=== PATIENT | female | born 1945 | race Caucasian/White ===

== ENCOUNTER 2016-04-26 09:00 | Inpatient (IN) | payer MEDICARE, OTHER ==
[~2016-04-26] VITALS: Ht 160 cm; Wt 69.4 kg
[~2016-04-26 09:00] MED LIST: CIPR500T3 PO; DEPA500T2; HYDR1TAB97 PO; No Historical Meds; OXYC1TAB23 PO
[2016-05-05] MEDS ORDERED: PROZ40CA PO (09:42)
[2016-05-05] MEDS ORDERED: LIPI20TA PO (09:42)
[2016-05-05] MEDS ORDERED: AMLO10TA PO (09:42)
[2016-05-15] MEDS ORDERED: HYDR1TAB97 PO (13:37)
[2016-05-17] MEDS ORDERED: LR 1,000 ML IV SCH ×2 (06:30→11:15)
[2016-05-17] MEDS ORDERED: ONDANSETRON 4MG/2ML VIAL (J2405) As Ordered ONE (07:04)
[2016-05-17] MEDS ORDERED: ROCURONIUM BROMIDE 50 MG/5 ML VIAL As Ordered ONE ×2 (07:04→08:36)
[2016-05-17] MEDS ORDERED: MIDAZOLAM INJ 2 MG/2 ML VIAL (J2250) As Ordered ONE (07:04)
[2016-05-17] MEDS ORDERED: PROPOFOL 200 MG/20 ML VIAL As Ordered ONE (07:04)
[2016-05-17] MEDS ORDERED: fentaNYL 250 MCG/5 ML INJECTION (J3010) As Ordered ONE (07:04)
[2016-05-17] MEDS ORDERED: LIDOCAINE 2% INJ 100 MG/5 ML SDV (FOR ANES.) As Ordered ONE (07:04)
[2016-05-17] MEDS ORDERED: dexameTHASONE 4 MG/ML 1ML VIAL (J1100) As Ordered ONE (07:04)
[2016-05-17] MEDS ORDERED: CONRAY-60 60% 50ML VIAL (Q9961) As Ordered ONE (07:23)
[2016-05-17] MEDS ORDERED: PHENYLephrine HCL 500 MCG/5 ML (100MCG/ML) SYRINGE (J2370) As Ordered ONE ×2 (08:21→09:17)
[2016-05-17] MEDS ORDERED: ePHEDrine SULFATE 25 MG/5 ML(5MG/ML) SYRINGE As Ordered ONE (08:21)
[2016-05-17] MEDS ORDERED: NEOSTIGMINE 1MG/ML 5 ML SYRINGE (J2710) As Ordered ONE (09:09)
[2016-05-17] MEDS ORDERED: GLYCOPYRROLATE INJ 0.2 MG/ML 2 ML VIAL As Ordered ONE (09:09)
[2016-05-17] MEDS ORDERED: CONRAY-60 60% 50ML VIAL (Q9961) XX ONE (09:20)
[2016-05-17] MEDS ORDERED: CALCIUM CHLORIDE 10% 1 GM/10 ML SYR As Ordered ONE (09:40)
--- NOTE | 2016-05-17 10:39 | REP ---
Right retrograde pyelogram 05/17/2016 Indication: kidney stone Comparison: CT abdomen pelvis 02/28 16, retrograde pyelogram 03/14/2016 Findings: 2-minute 53 seconds c-arm fluoroscopy time provided to Dr. Lopez of Department of Urology who performed a percutaneous right nephrostomy with placement of a indwelling right ureteral stent. There are filling defects seen within the dilated right renal pelvis consistent with known staghorn calculus. Multiple gallstones are identified within the gallbladder 22 images were recorded and are available for review on PACS Signed by Shayy Prajapati MD 05/17/2016 10:30 A
[2016-05-17 10:56] LABS: MEAN CORPUSCULAR HEMOGLOBIN 29.7 pg (27.0-33.0); MEAN CORPUSCULAR HGB CONC 32.8 g/dl (32.0-36.5); MEAN CORPUSCULAR VOLUME 90.7 fl (80.0-96.0); RED CELL DISTRIBUTION WIDTH 12.8 % (11.5-14.5); WHITE BLOOD COUNT 14.3 K/mm3 (4.0-10.0)
[2016-05-17] MEDS ORDERED: PERCOCET 5MG/325MG TAB PO PRN (11:15)
[2016-05-17] MEDS ORDERED: ONDANSETRON 4MG/2ML VIAL (J2405) IV PRN ×2 (11:15→15:45)
[2016-05-17] MEDS ORDERED: fentaNYL 100 MCG/2 ML INJECTION (J3010) IV PRN (11:15)
[2016-05-17 11:29] LABS: CALCIUM LEVEL 8.9 MG/DL (8.8-10.2); CREATININE FOR GFR 1.51 MG/DL (0.55-1.02); GLOMERULAR FILTRATION RATE 36.5 (>45)
[2016-05-17 15:30] VITALS: BP 137/66
[2016-05-17] MEDS ORDERED: ACETAMINOPHEN 650MG ER TAB (TYLENOL ARTHRITIS) PO PRN (15:45)
[2016-05-17] MEDS ORDERED: MORPHINE 4 MG/ML 1ML SYRINGE IV PRN (15:45)
[2016-05-17] MEDS: KCL 20MEQ in NS 1000ML 1,000 ML IV SCH (15:45)
[2016-05-17 16:00] VITALS: BP 131/66
[2016-05-17] MEDS ORDERED: oxyCODONE 5MG TAB PO PRN (16:30)
[2016-05-17 17:00] VITALS: BP 128/59
[2016-05-17] MEDS ORDERED: LevoFLOXacin 500 MG in APPROPRIATE DILUENT 1 EA IV SCH (17:00)
[2016-05-17] MEDS ORDERED: PANTOPRAZOLE 40MG INJ (PROTONIX) (C9113) IV SCH (18:00)
[2016-05-17 21:00] VITALS: BP 128/59
[2016-05-18] VITALS: BP 113/54
[2016-05-18] MEDS: KCL 20MEQ in NS 1000ML 1,000 ML IV SCH ×3 (01:45→12:30)
[2016-05-18 05:12] VITALS: BP 122/68
[2016-05-18 07:22] LABS: MEAN CORPUSCULAR HEMOGLOBIN 29.7 pg (27.0-33.0); MEAN CORPUSCULAR HGB CONC 33.3 g/dl (32.0-36.5); RED CELL DISTRIBUTION WIDTH 12.9 % (11.5-14.5)
[2016-05-18 07:30] LABS: CREATININE FOR GFR 1.11 MG/DL (0.55-1.02); POTASSIUM SERUM 4.8 MEQ/L (3.5-5.1)
[2016-05-18 08:00] VITALS: BP 100/51
--- NOTE | 2016-05-18 08:46 | RO ---
DATE OF PROCEDURE: 05/17/2016 PREOPERATIVE DIAGNOSIS: Right staghorn stone. POSTOPERATIVE DIAGNOSIS: Right staghorn stone. FINDINGS: Right staghorn stone. PROCEDURE: Right percutaneous neprolithotripsy plus placement of JJ stent #6 [place] Cook. SURGEON: Dr. Romulo Lopez INSURANCE COMMISSIONER: None. ANESTHESIA: General. COMPLICATIONS: None. ESTIMATED BLOOD LOSS: N/A. HISTORY OF PRESENT ILLNESS: This is a 70-year-old female patient with a right staghorn stone. She has a nephrostomy tube in place. For this reason, she has consented for a right percutaneous nephrolithotripsy plus antegrade JJ stent placement. PROCEDURE DESCRIPTION: With patient under general anesthesia in prone position, after prepping and draping the area of concern which included the entire right flank, we started by cutting the nephrostomy tube and passing a Sensor guidewire down to the bladder and taking out the nephrostomy tube. We then incised the skin for about 2 cm in length and placed a double lumen catheter down into the kidney. We passed through the double lumen catheter a second Sensor guidewire down to the bladder. We then removed the double lumen catheter and placed a balloon dilator and dilated the tract with and passed the Amplatz sheath into the kidney. We then removed the balloon dilator and introduced a nephroscope under videoscopic guidance. We then proceeded the identify the stone and with a Fiberwand, we actually lithotripsied the stone and sucked all the pieces out. With a Perk NCircle, we grabbed the big pieces and took it out of body of patient. We then proceeded to actually took out the nephroscope and pass a flexible cystoscope in and did a formal nephroscopy upper pole, lower pole and mid pole of the kidney with a flexible cystoscope. We found some stones in the lower pole. We grabbed them with a basket 0.10 tip basket and took out of the body of the patient. We then proceeded to actually pass a JJ stent following the Sensor guidewire down to the kidney. Once it was in good position, we took the guidewire out. We then proceeded to pass a [place] tip into the kidney into the renal pelvis, 16-Burkinan [place] tip and we took out nephrostomy tube and suture ligated the [place] tip catheter to the skin with #2-0 silk stitch. We then proceeded the place 4 x 4 and tailor them on top of it to secure it and placed it to gravity. PLAN: The patient will pass to recovery then to the floor. Once she is tolerating regular diet, ambulating very well, we will take out all the tubes once she has a CT scan tomorrow morning and see there is no stones.
--- NOTE | 2016-05-18 08:47 | REP ---
Clinical: Postoperative flank pain. Comparison: 02/28/2016. Findings: The previously noted 8 mm obstructing left ureteral calculus has been removed and the left kidney/ureter appears relatively normal with small punctate nonobstructing intrarenal calculi suspected. The right kidney now demonstrates a ureteral stent extending from the renal pelvis to the bladder with intra renal calculi measuring up to approximately 8 mm and small right ureteral calculi suggested measuring up to 2 mm adjacent to the stent at various levels. The previously identified staghorn calculus within the right kidney is essentially removed. There is evidence for mild right perinephric stranding with a drainage-type catheter identified in the posterior right perinephric space external to the kidney. Liver, spleen, pancreas, and bilateral adrenal glands are normal. Cholelithiasis again noted without acute cholecystitis. Ostomy identified in the right anterior abdominal wall with peristomal hernia containing nonobstructed loops of small bowel. Pelvis demonstrates a Renee catheter and small amount of gas in collapsed bladder along with the above mentioned right ureteral stent. Soft tissue and/or fluid is identified in the deep posterior pelvic cul-de-sac similar to prior examination. No free air. No significant adenopathy. Musculoskeletal structures demonstrate degenerative changes. Lung bases are stable. Impression: 1. A drainage type catheter is identified adjacent to the right kidney external to the kidney itself and requires correlation. If this represents a nephrostomy tube, repositioning or removal may be warranted. 2. Further renal and ureteral changes as described above without evidence for acute hydronephrosis. 3. Cholelithiasis. 4. Remainder of the abdomen and pelvis demonstrates stable findings. Signed by Jimbo Arita MD 05/18/2016 08:38 A
[2016-05-18 12:00] VITALS: BP 106/51
[2016-05-18] MEDS ORDERED: HYDR1TAB97 PO (15:47)
[2016-05-18] MEDS ORDERED: LEVA500T PO (15:47)
--- NOTE | 2016-05-18 20:27 | DSES ---
DATE OF ADMISSION: 05/17/2016 DATE OF DISCHARGE: 05/18/2016 PREOPERATIVE DIAGNOSIS: Right staghorn stone. POSTOPERATIVE DIAGNOSIS: Right staghorn stone. ADMISSION DIAGNOSIS: Right staghorn stone. DISCHARGE DIAGNOSIS: Right staghorn stone. SURGERY PERFORMED: Right percutaneous nephrolithotripsy plus antegrade double-J stent 6-Swedish [place] Cook. COMPLICATIONS: None. HISTORY OF PRESENT ILLNESS: A 70-year-old female patient who has a right staghorn stone. For this reason, she had a nephrostomy tube placed, and she consented for a right percutaneous nephrolithotripsy which was carried out on 05/17/2016, without complications. After this, she was admitted. HOSPITALIZATION COURSE: The patient did very well. By postoperative day one, she had a CT scan that showed that there was 98% of the stone gone. There was only a miniscule 3 mm stone in the mid-pole of the kidney, and she had a correct double-J stent on the right side draining the kidney very well. Nephrostomy tube was in good position. For this reason, we opted to discontinue the nephrostomy tube and Renee catheter from the bladder. We left inside the right double-J stent. The patient will have a urostomy bag attached to the back side where the nephrostomy tube entrance was. She will have to drain it every 24 hours. Once it is thoroughly dry, she will discontinue it. She will followup at [facility] in one week to two weeks, so I can remove the internal double-J stent on the right side. She will take come Levaquin 500 mg one tablet by mouth daily, and Percocet 5/325 mg one tablet by mouth every six hours. The patient has agreed on being sent home. She would like to actively go home. She is ambulating very well, tolerating oral diet. Pain is controlled with oral medication and would like to actively be discharged. For this reason, we have discontinued nephrostomy tube, the Renee catheter from the bladder. She will be going home with antibiotic and pain medication as mentioned above. She will followup at [facility] in one week.
== END 2016-05-18 16:15 | disposition home or self-care (01) | DRG 661 ==
LOC: M OR 05-17 06:16 → M MS5PR 05-17 15:20 → M PED 05-17 23:50
PROVIDERS: ADMIT Urology; ATTEND Urology
PROC: 0T733DZ Dilation of Right Kidney Pelvis with Intraluminal Device, Percutaneous Approach (ICD-10-PCS; 2016-05-15)
PROC: 0T734DZ Dilation of Right Kidney Pelvis with Intraluminal Device, Percutaneous Endoscopic Approach (ICD-10-PCS; 2016-05-17)
PROC: 0TC34ZZ Extirpation of Matter from Right Kidney Pelvis, Percutaneous Endoscopic Approach (ICD-10-PCS; principal; 2016-05-17 07:30)
DX: N20.0 Calculus of kidney (principal); K21.9 Gastro-esophageal reflux disease without esophagitis; R42 Dizziness and giddiness; Z93.3 Colostomy status; I10 Essential (primary) hypertension; F41.9 Anxiety disorder, unspecified; J30.9 Allergic rhinitis, unspecified; Z79.899 Other long term (current) drug therapy

== ENCOUNTER → 2016-05-15 | Outpatient (CLI) | payer MEDICARE, OTHER ==
[~2016-05-15] MED LIST changes: +AMLO10TA PO; +ISOVUE-300 61% 50ML VIAL (Q9967) As Ordered ONE; +LEVA500T PO; +LIDOCAINE 2% MDV 20 ML VIAL As Ordered ONE; +LIPI20TA PO; +LR 1,000 ML IV SCH; +MIDAZOLAM INJ 2 MG/2 ML VIAL (J2250) As Ordered ONE; +NORCO, ANEXSIA 5/325MG TABLET (HYDROcodone/ACETAMINOPHEN) PO PRN; +ONDANSETRON 4MG/2ML VIAL (J2405) IV PRN; +PERCOCET 5MG/325MG TAB PO PRN; +PROZ40CA PO; +SODIUM BICARBONATE 8.4% INJ 50MEQ 50 ML VIAL As Ordered ONE; +cefTRIAXone SOD 1 GM VIAL (J0696) As Ordered ONE; +cefTRIAXone SOD 1 GM in D5W MINI-BAG PLUS 50 ML IV ONE; +fentaNYL 100 MCG/2 ML INJECTION (J3010) As Ordered ONE; +fentaNYL 100 MCG/2 ML INJECTION (J3010) IV PRN
[2016-05-15 14:40] VITALS: BP 177/81
--- NOTE | 2016-05-15 17:04 | REPKIM ---
CLINICAL HISTORY: Patient with a history of multiple bilateral kidney stones and flank pain. Successful left kidney stone PCNL performed in January 2016. The referring urology service has requested a nephroureteral catheter (stent) placement for preop percutaneous nephrolithotripsy urology procedure on the right. PROCEDURE PERFORMED: 1. Ultrasound Right Kidney 2. Percutaneous antegrade Nephrostogram on the right 3. Percutaneous Nephroureteral catheter (stent) placement on the right INTERVENTIONALIST: Adelfo Self MD CONSENT: The risks, benefits and alternatives to the procedure were explained to the patient and informed written consent was obtained. SEDATION: Sedation and analgesia was provided by the Anesthesiology Dept. MEDICATIONS: Rocephin 1gm IV, Local Lidocaine CONTRAST: 18 mL Isovue 300 EBL: less than 10 mL FLUORO TIME: 7.7 minutes DEVICE USED: 8.5F 45cm pigtail; Nephroureteral catheter Lot #[id number] PROCEDURE/FINDINGS: The patient was brought to the interventional radiology suite and placed in the prone position with the right side up, prepped and draped in the usual sterile fashion. Time out procedure was performed. Ultrasound of the kidney showed a staghorn kidney stone involving the upper pole calyces. This showed no evidence of hydronephrosis. Using ultrasound and fluoroscopy guidance, a 21-gauge Trocar needle was advanced into the targeted posterior calyceal stone in the upper pole of the right kidney, after infiltration of the skin and deep tissues with local anesthetic. Contrast was injected and images were obtained. This showed antegrade flow of contrast into the urinary bladder. Using a hydrophilic guidewire, the catheter-wire combination was advanced around the calyceal stone into the proximal ureter then into the urinary bladder. The wire was then exchanged for a stiff wire. An 8.5-Scottish 45-cm length pigtail catheter ( nephroureteral catheter) was introduced over the guidewire after serial dilation of its tract. The guidewire was withdrawn and the distal end of the loop was formed, in the bladder. The nephroureteral catheter was then flushed and capped. The patient tolerated the procedure well with no immediate complications. This procedure was performed using ultrasound and fluoroscopy. Dr. Self was present. FINDINGS: 1. A staghorn kidney stone in the upper pole calyces involving the right kidney. No evidence of hydronephrosis. 2. Successful 8.5F nephroureteral catheter placement via the upper pole posterior calyceal stone. IMPRESSION: Successful nephroureteral catheter (stent) placement via the upper pole posterior calyceal stone with its tip positioned in the bladder as discussed above. This access will be used for subsequent percutaneous nephrolithotripsy urology procedure. cc: TIFFANY Lorenzo MD MTDD
== END | disposition home or self-care (01) ==
LOC: M IRPRO 09:39
PROVIDERS: ATTEND Urology
DX: N20.0 Calculus of kidney (principal)

== ENCOUNTER → 2016-06-12 | Outpatient (CLI) | payer MEDICARE ==
[~2016-06-12] MED LIST changes: +HYDR-3713 PO; -HYDR1TAB97 PO; -ISOVUE-300 61% 50ML VIAL (Q9967) As Ordered ONE; -LIDOCAINE 2% MDV 20 ML VIAL As Ordered ONE; -LR 1,000 ML IV SCH; -MIDAZOLAM INJ 2 MG/2 ML VIAL (J2250) As Ordered ONE; -NORCO, ANEXSIA 5/325MG TABLET (HYDROcodone/ACETAMINOPHEN) PO PRN; -ONDANSETRON 4MG/2ML VIAL (J2405) IV PRN; -PERCOCET 5MG/325MG TAB PO PRN; -SODIUM BICARBONATE 8.4% INJ 50MEQ 50 ML VIAL As Ordered ONE; -cefTRIAXone SOD 1 GM VIAL (J0696) As Ordered ONE; -cefTRIAXone SOD 1 GM in D5W MINI-BAG PLUS 50 ML IV ONE; -fentaNYL 100 MCG/2 ML INJECTION (J3010) As Ordered ONE; -fentaNYL 100 MCG/2 ML INJECTION (J3010) IV PRN
--- NOTE | 2016-06-12 10:35 | REP ---
CT study of the abdomen and pelvis without IV or oral contrast: History: Staghorn calculus. Comparison CT study is from May 18, 2016. Findings: Preliminary digital metal stamper radiograph demonstrates a normal bowel gas pattern along with opaque gallstones in the right upper quadrant. The previously placed drainage and ureteral stent catheters have been removed. There is a surgical clip in the left mid abdomen. The lung bases are clear on axial CT images. The liver and spleen are normal in size, homogeneous in texture. A small accessory splenule is seen. Calcified gallstones are seen in the small contracted gallbladder. There is a right lower quadrant enterostomy with a parastomal hernia. The patient appears to be status post colectomy. There are two tiny, 2 mm intrarenal calculi in the right kidney without evidence of hydronephrosis. There are two tiny 1 mm calculi in the left kidney collecting system as well. No left-sided hydronephrosis is seen. No pancreatic abnormality is observed. Urinary bladder is unremarkable. No other abdominal wall defect is seen. There are degenerative changes in the lumbar spine. No bony destructive lesion is seen. Impression: Prior colectomy. Right lower quadrant ileostomy with a parastomal hernia again noted. Bilateral intrarenal calculi 1-2 mm, two on each side. No hydronephrosis. Cholelithiasis. Signed by Glenn Hyatt MD 06/12/2016 02:32 P
== END | disposition home or self-care (01) ==
LOC: M RAD 08:34
PROVIDERS: ATTEND Urology
DX: N20.0 Calculus of kidney (principal); Z90.49 Acquired absence of other specified parts of digestive tract; Z93.2 Ileostomy status; K43.5 Parastomal hernia without obstruction or gangrene

== ENCOUNTER → 2016-06-13 | Outpatient (CLI) | payer MEDICARE | END | disposition home or self-care (01) | LOC: M LAB 14:37 | PROVIDERS: ATTEND Urology | DX: N20.0 Calculus of kidney (principal) ==

== ENCOUNTER → 2016-07-04 | Outpatient (CLI) | payer MEDICARE | LOC: M LRY 14:06 | PROVIDERS: ATTEND Family Medicine | DX: M25.511 Pain in right shoulder (principal); G89.29 Other chronic pain; Z53.8 Procedure and treatment not carried out for other reasons ==

== ENCOUNTER → 2016-07-05 | Outpatient (CLI) | payer MEDICARE ==
--- NOTE | 2016-07-05 15:21 | REP ---
RIGHT SHOULDER, THREE VIEWS: HISTORY: Pain. COMPARISON: 11/12/2012 There is no acute fracture or dislocation. There is narrowing of the acromioclavicular joint. Osteophytes are present on the inferior glenoid superior and inferior aspects of the acromioclavicular joint and the inferolateral aspect of the acromion. IMPRESSION: Degenerative change as described above. Signed by Max Nino MD 07/05/2016 03:25 P
== END ==
LOC: M LRY 13:57
PROVIDERS: ATTEND Family Medicine
DX: M25.511 Pain in right shoulder (principal); G89.29 Other chronic pain; M19.011 Primary osteoarthritis, right shoulder

== ENCOUNTER → 2016-07-20 | Outpatient (REF) | payer MEDICARE | LOC: M LAB REF 12:38 | PROVIDERS: ATTEND Physician Assistant | DX: R50.9 Fever, unspecified (principal) ==

== ENCOUNTER → 2016-07-24 | Outpatient (REF) | payer MEDICARE | LOC: M SFHCLERA 15:20 | PROVIDERS: ATTEND Family Medicine | DX: J00 Acute nasopharyngitis [common cold] (principal) ==

== ENCOUNTER → 2016-11-30 | Outpatient (REF) | payer MEDICARE ==
[~2016-11-30] MED LIST changes: +LEVA1TAB2 PO; -LEVA500T PO
[2016-11-30 16:52] LABS: ANION GAP 6 MEQ/L (8-16); BLOOD UREA NITROGEN 15 MG/DL (7-18); CALCIUM LEVEL 9.4 MG/DL (8.8-10.2); CARBON DIOXIDE LEVEL 30 MEQ/L (21-32); CHLORIDE LEVEL 99 MEQ/L (98-107); GLOMERULAR FILTRATION RATE > 60.0 (>45); GLUCOSE, FASTING 133 MG/DL (80-110); POTASSIUM SERUM 4.1 MEQ/L (3.5-5.1); SODIUM LEVEL 135 MEQ/L (136-145)
== END ==
LOC: M SFHCLERA 11:58
PROVIDERS: ATTEND Family Medicine
DX: I10 Essential (primary) hypertension (principal)

== ENCOUNTER → 2016-11-30 | Outpatient (CLI) | payer MEDICARE ==
--- NOTE | 2016-11-30 12:38 | REP ---
REASON: Knee pain. Only a standing bilateral AP view was obtained. There are no prior standing bilateral AP examinations for comparison. There is mild bilateral bicompartmental marginal osteophytosis. There is no jenna compartmental narrowing or subchondral sclerosis. There is no fracture or osseous lesion. IMPRESSION: Chronic changes as described above. Signed by Eleuterio Connell DO 11/30/2016 04:44 P
== END ==
LOC: M LRY 12:07
PROVIDERS: ATTEND Family Medicine
DX: Z12.31 Encounter for screening mammogram for malignant neoplasm of breast (principal); M25.561 Pain in right knee; M25.562 Pain in left knee; G89.29 Other chronic pain; I10 Essential (primary) hypertension
CPT/HCPCS: 73565; 80048; G0463

== ENCOUNTER → 2017-06-07 | Outpatient (REF) | payer MEDICARE ==
[2017-06-07 12:12] LABS: HEMATOCRIT 43.2 % (36.0-47.0); HEMOGLOBIN 13.8 g/dl (12.0-16.0); MEAN CORPUSCULAR HEMOGLOBIN 28.5 pg (27.0-33.0); MEAN CORPUSCULAR HGB CONC 31.9 g/dl (32.0-36.5); MEAN CORPUSCULAR VOLUME 89.1 fl (80.0-96.0); PLATELET COUNT, AUTOMATED 320 10^3/uL (150-450); RED BLOOD COUNT 4.85 10^6/uL (4.00-5.40); RED CELL DISTRIBUTION WIDTH 13.7 % (11.5-14.5); WHITE BLOOD COUNT 8.1 10^3/uL (4.0-10.0)
[2017-06-07 12:49] LABS: ALBUMIN 3.7 GM/DL (3.2-5.2); ALKALINE PHOSPHATASE 89 U/L (45-117); ALT/SGPT 15 U/L (12-78); ANION GAP 6 MEQ/L (8-16); AST/SGOT 9 U/L (7-37); BILIRUBIN,TOTAL 0.4 MG/DL (0.2-1.0); BLOOD UREA NITROGEN 19 MG/DL (7-18); CALCIUM LEVEL 9.2 MG/DL (8.8-10.2); CARBON DIOXIDE LEVEL 29 MEQ/L (21-32); CHLORIDE LEVEL 106 MEQ/L (98-107); CHOLESTEROL LEVEL 279 MG/DL (<200); CREATININE FOR GFR 1.04 MG/DL (0.55-1.30); GLOMERULAR FILTRATION RATE 55.9 (>45); GLUCOSE, FASTING 87 MG/DL (70-100); HDL CHOLESTEROL 51 MG/DL (>40); LDL CHOLESTEROL 178.4 MG/DL (<100); NON-HDL-C 228 MG/DL; POTASSIUM SERUM 4.7 MEQ/L (3.5-5.1); SODIUM LEVEL 141 MEQ/L (136-145); TOTAL PROTEIN 7.8 GM/DL (6.4-8.2); TRIGLYCERIDES LEVEL 248 MG/DL (<150)
== END ==
LOC: M SFHCLERA 09:17
DX: E78.2 Mixed hyperlipidemia (principal); I10 Essential (primary) hypertension
CPT/HCPCS: 80053

== ENCOUNTER → 2017-12-17 | Outpatient (CLI) | payer MEDICARE | LOC: M LAB 13:51 | DX: M89.8X1 Other specified disorders of bone, shoulder (principal); M19.011 Primary osteoarthritis, right shoulder | CPT/HCPCS: 73000 ==

== ENCOUNTER → 2018-01-21 | Outpatient (CLI) | payer MEDICARE | LOC: M RAD 13:30 | DX: N64.4 Mastodynia (principal) ==

== ENCOUNTER → 2018-01-23 | Outpatient (CLI) | payer MEDICARE | LOC: M WHC 14:57 | DX: Z13.820 Encounter for screening for osteoporosis (principal); Z78.0 Asymptomatic menopausal state | CPT/HCPCS: 77080 ==

== ENCOUNTER → 2018-02-07 | Outpatient (CLI) | payer MEDICARE | LOC: M RAD 12:35 | DX: N64.4 Mastodynia (principal) | CPT/HCPCS: 77065 ==

== ENCOUNTER → 2018-02-13 | Outpatient (REF) | payer MEDICARE ==
[2018-02-13 13:12] LABS: RUBELLA IgG QUALITATIVE IMMUNE (IMMUNE)
[2018-02-14 11:17] LABS: RUBEOLA IgG ANTIBODY >300.0 AU/mL (Immune >29.9)
[2018-02-14 11:17] LABS: MUMPS VIRUS IgG ANTIBODY 15.4 AU/mL (Immune >10.9)
== END ==
LOC: M SFHCPLAZ 10:49
DX: Z01.84 Encounter for antibody response examination (principal)
CPT/HCPCS: 86762

== ENCOUNTER 2018-03-21 14:08 | Emergency (ER) | payer MEDICARE ==
[2018-03-21] MEDS: ACETAMINOPHEN TAB 650MG DOSE (2X325MG) PO (15:23)
[2018-03-21] MEDS: LIDOCAINE W/EPINEPHRINE 1% 20ML VIAL SC (15:24)
[2018-03-21] MEDS: BACITRACIN OINT 30GM TOP (16:13)
== END 2018-03-21 16:24 | disposition home or self-care (01) ==
LOC: M ED 14:08
DX: S01.111A Laceration without foreign body of right eyelid and periocular area, initial encounter (principal); W19.XXXA Unspecified fall, initial encounter; Y92.410 Unspecified street and highway as the place of occurrence of the external cause; Y93.89 Activity, other specified; Y99.9 Unspecified external cause status; I10 Essential (primary) hypertension; E78.5 Hyperlipidemia, unspecified; Z79.899 Other long term (current) drug therapy
CPT/HCPCS: 12052

== ENCOUNTER → 2018-05-19 | Outpatient (CLI) | payer MEDICARE, OTHER ==
[~2018-05-19] MED LIST changes: +ACET500T15 PO; +ALEV220T22 PO; +OMEP40CA2 PO
[2018-05-19 17:24] LABS: BASO # 0.1 10^3/uL (0.0-0.2); BASO % 1.2 % (0.0-1.0); EOS # 0.4 10^3/uL (0.0-0.50); EOS % 4.7 % (0.0-3.0); HEMATOCRIT 45.3 % (36.0-47.0); HEMOGLOBIN 14.6 g/dl (12.0-15.5); LYMPH # 3.9 10^3/uL (1.5-4.5); LYMPH % 41.6 % (24.0-44.0); MEAN CORPUSCULAR HEMOGLOBIN 28.5 pg (27.0-33.0); MEAN CORPUSCULAR HGB CONC 32.2 g/dl (32.0-36.5); MEAN CORPUSCULAR VOLUME 88.3 fl (80.0-96.0); MONO # 0.7 10^3/uL (0.0-0.8); MONO % 7.4 % (0.0-5.0); NEUTROPHILS # 4.3 10^3/uL (1.8-7.7); PLATELET COUNT, AUTOMATED 354 10^3/uL (150-450); RED BLOOD COUNT 5.13 10^6/uL (4.00-5.40); WHITE BLOOD COUNT 9.5 10^3/uL (4.0-10.0)
[2018-05-19 17:39] LABS: ALBUMIN 4.2 GM/DL (3.2-5.2); ALT/SGPT 14 U/L (12-78); BILIRUBIN,TOTAL 0.5 MG/DL (0.2-1.0); BLOOD UREA NITROGEN 20 MG/DL (7-18); CALCIUM LEVEL 9.3 MG/DL (8.8-10.2); CARBON DIOXIDE LEVEL 28 MEQ/L (21-32); CHLORIDE LEVEL 101 MEQ/L (98-107); CREATININE FOR GFR 0.91 MG/DL (0.55-1.30); FREE T4 1.04 NG/DL (0.76-1.46); GLOMERULAR FILTRATION RATE > 60.0 (>39); GLUCOSE, FASTING 77 MG/DL (70-100); POTASSIUM SERUM 4.9 MEQ/L (3.5-5.1); SODIUM LEVEL 138 MEQ/L (136-145); THYROID STIMULATING HORMONE 0.771 uIU/ML (0.358-3.740); TOTAL PROTEIN 8.1 GM/DL (6.4-8.2)
[2018-05-19 17:54] LABS: ERYTHROCYTE SEDIMENTATION RATE 3 mm/hr (0-30)
--- NOTE | 2018-05-20 06:10 | REP ---
Soft-tissue neck x-ray: Four views. History: Dysphasia. Comparison study November 12, 2012. Findings: The epiglottis is normal. Aryepiglottic folds and retropharyngeal soft tissues are normal. Glottic and subglottic airway are unremarkable. There are degenerative spondylosis changes in the cervical spine most pronounced at C4-5 and C5-6. Osteoarthritic facet hypertrophy is noted in the mid cervical spine bilaterally. There is some vascular calcification. Impression: Degenerative changes in the cervical spine. No soft tissue abnormality seen. Electronically Signed by Glenn Hyatt MD 05/20/2018 08:10 A
== END ==
LOC: M WUC 13:28
PROVIDERS: ATTEND Physician Assistant
DX: R13.13 Dysphagia, pharyngeal phase (principal); M47.812 Spondylosis without myelopathy or radiculopathy, cervical region

== ENCOUNTER → 2018-05-22 | Outpatient (CLI) | payer MEDICARE ==
[~2018-05-22] MED LIST changes: +E-Z-GAS II EFFERVESCENT PACKET (SODIUM BICARB./CITRIC ACID/SIMETHICONE) As Ordered ONE; +E-Z-HD 98% w/w 340GM SUSP BTL As Ordered ONE; +E-Z-PAQUE 96% w/w SUSP 176GM BTL As Ordered ONE
--- NOTE | 2018-05-22 19:38 | REP ---
Esophagram The procedure was performed under the direct supervision of Dr. Hyatt. The images were reviewed with Dr. Hyatt. A single view PA chest x-ray is submitted as a director of kids film. The superior mediastinal structures are midline. The heart size is within normal limits. The lungs are clear. There is no change compared to a previous chest x-ray performed on 11/09/2017. Liquid barium and gas producing granules were given in the erect position as well as liquid barium in the prone oblique positions in order to perform a double contrast esophagram examination. The oral and pharyngeal stages of deglutition are unremarkable. 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 There is cricopharyngeal hypertrophy. There are esophageal transport there are tertiary waves. There is no esophagitis stricture mucosal ring or hiatal hernia. Gastroesophageal reflux is not demonstrated on this examination. Impression: 1. 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 2. Cricopharyngeal hypertrophy 3. Tertiary waves 0.6 minutes of fluoro time was utilized for this procedure. Reviewed by SHANON Romero 05/22/2018 03:06 P Electronically Signed by Glenn Hyatt MD 05/22/2018 07:30 P
== END ==
LOC: M RAD 13:25
PROVIDERS: ATTEND Physician Assistant
DX: J39.2 Other diseases of pharynx (principal); Q39.4 Esophageal web

== ENCOUNTER 2018-08-16 12:20 | Day surgery (SDC) | payer MEDICARE ==
[~2018-08-16] VITALS: Ht 157.5 cm; Wt 68.9 kg
[~2018-08-16 12:20] MED LIST changes: -E-Z-GAS II EFFERVESCENT PACKET (SODIUM BICARB./CITRIC ACID/SIMETHICONE) As Ordered ONE; -E-Z-HD 98% w/w 340GM SUSP BTL As Ordered ONE; -E-Z-PAQUE 96% w/w SUSP 176GM BTL As Ordered ONE; +NAPR-885 PO; +NS 1,000 ML IV ONE
[2018-08-16] MEDS ORDERED: PROPOFOL 200 MG/20 ML VIAL As Ordered ONE ×2 (13:19→14:10)
[2018-08-16] MEDS ORDERED: LIDOCAINE 2% INJ 100 MG/5 ML SDV (FOR ANES.) As Ordered ONE (13:19)
--- NOTE | 2018-08-16 14:35 | ROOR ---
Patient Name: Lakisha Abrams Procedure Date: 08/16/2018 2:03 PM Date of : 1945 Age: 73 Room: [facility] Gender: Female Note Status: Finalized Procedure: Upper GI endoscopy Indications: Dysphagia, Abnormal cine-esophagram Providers: Reji Villarreal MD Referring MD: ISIAH BHAGAT Requesting Provider: Medicines: Monitored Anesthesia Care Complications: No immediate complications. Procedure: Pre-Anesthesia Assessment: - Prior to the procedure, a History and Physical was performed, and patient medications and allergies were reviewed. The patient is competent. The risks and benefits of the procedure and the sedation options and risks were discussed with the patient. All questions were answered and informed consent was obtained. Patient identification and proposed procedure were verified by the physician, the nurse and the anesthesiologist in the procedure room. Mental Status Examination: alert and oriented. Airway Examination: normal oropharyngeal airway and neck mobility. Respiratory Examination: clear to auscultation. CV Examination: normal. Prophylactic Antibiotics: The patient does not require prophylactic antibiotics. Prior Anticoagulants: The patient has taken no previous anticoagulant or antiplatelet agents. ASA Grade Assessment: II - A patient with mild systemic disease. After reviewing the risks and benefits, the patient was deemed in satisfactory condition to undergo the procedure. The anesthesia plan was to use monitored anesthesia care (MAC). Immediately prior to administration of medications, the patient was re-assessed for adequacy to receive sedatives. The heart rate, respiratory rate, oxygen saturations, blood pressure, adequacy of pulmonary ventilation, and response to care were monitored throughout the procedure. The physical status of the patient was re-assessed after the procedure. The Endoscope was introduced through the mouth, and advanced to the second part of duodenum. The upper GI endoscopy was accomplished without difficulty. The patient tolerated the procedure well. Findings: A moderate Schatzki ring was found in the distal esophagus. Biopsies were taken with a cold forceps for histology. Verification of patient identification for the specimen was done by the physician and nurse using the patient's name, date and medical record number. A TTS dilator was passed through the scope. Dilation with a 15-16.5-18 mm balloon dilator was performed to 18 mm. The dilation site was examined following endoscope reinsertion and showed mild mucosal disruption, moderate improvement in luminal narrowing, no bleeding and no perforation. Savary-Guzman Grade III (circumferential lesion, erosive or exudative) esophagitis with no bleeding was found in the distal esophagus. A large hiatal hernia was present. Diffuse severe inflammation characterized by erosions, erythema, friability, granularity, serpentine ulcerations and shallow ulcerations was found in the gastric body and in the gastric antrum. Biopsies were taken with a cold forceps for histology. Biopsies were taken with a cold forceps for Helicobacter pylori testing. An acquired benign-appearing, intrinsic severe stenosis was found in the first portion of the duodenum and was non-traversed. Biopsies were taken with a cold forceps for histology. Impression: - Moderate Schatzki ring. Biopsied. Dilated. - Savary-Guzman Grade III reflux esophagitis. - Large hiatal hernia. - Gastritis. Biopsied. - Acquired duodenal stenosis. Biopsied. Recommendation: - Patient has a contact number available for emergencies. The signs and symptoms of potential delayed complications were discussed with the patient. Return to normal activities tomorrow. Written discharge instructions were provided to the patient. - Resume previous diet. - Use Protonix (pantoprazole) 40 mg PO twice daily - to be taken in morning (1/2 hour before breakfast) and at bedtime ( atleast 3 hours after last meal) for 3 months. 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 for 3 months. - Use sucralfate tablets 1 gram PO QID for 1 month. - Return to GI clinic in [facility] (address [address], [address], [place], [facility]) in 4 -- 6 weeks. Please call GI clinic @ [phone] for apppointment date and time. - Return to primary care physician. Reji Villarreal MD Reji Villarreal MD 08/16/2018 2:35:28 PM Electronically signed by Reij Villarreal MD Number of Addenda: 0 Note Initiated On: 08/16/2018 2:03 PM Estimated Blood Loss: Estimated blood loss was minimal.
[2018-08-16 14:55] VITALS: BP 104/57
== END 2018-08-16 15:04 | disposition home or self-care (01) ==
LOC: M OPP 12:20
PROVIDERS: ATTEND Internal Medicine Gastroenterology
DX: K22.2 Esophageal obstruction (principal); K21.0 Gastro-esophageal reflux disease with esophagitis; K44.9 Diaphragmatic hernia without obstruction or gangrene; K29.70 Gastritis, unspecified, without bleeding; K31.5 Obstruction of duodenum; R13.10 Dysphagia, unspecified; R93.3 Abnormal findings on diagnostic imaging of other parts of digestive tract

== ENCOUNTER → 2018-10-17 | Outpatient (CLI) | payer MEDICARE ==
[~2018-10-17] MED LIST changes: -NS 1,000 ML IV ONE
[2018-10-17 09:07] LABS: BASO # 0.1 10^3/uL (0.0-0.2); BASO % 1.1 % (0.0-1.0); EOS # 0.6 10^3/uL (0.0-0.50); EOS % 7.1 % (0.0-3.0); HEMATOCRIT 42.3 % (36.0-47.0); HEMOGLOBIN 13.8 g/dl (12.0-15.5); LYMPH # 3.2 10^3/uL (1.5-4.5); LYMPH % 37.7 % (24.0-44.0); MEAN CORPUSCULAR HEMOGLOBIN 29.5 pg (27.0-33.0); MEAN CORPUSCULAR HGB CONC 32.6 g/dl (32.0-36.5); MEAN CORPUSCULAR VOLUME 90.4 fl (80.0-96.0); MONO # 0.6 10^3/uL (0.0-0.8); MONO % 6.5 % (0.0-5.0); NEUTROPHILS % 47.2 % (36.0-66.0); PLATELET COUNT, AUTOMATED 308 10^3/uL (150-450); RED BLOOD COUNT 4.68 10^6/uL (4.00-5.40); WHITE BLOOD COUNT 8.4 10^3/uL (4.0-10.0)
[2018-10-17 09:36] LABS: HEMOGLOBIN A1c 5.7 %
[2018-10-17 09:39] LABS: ALBUMIN 3.9 GM/DL (3.2-5.2); ALT/SGPT 19 U/L (12-78); BILIRUBIN,TOTAL 0.4 MG/DL (0.2-1.0); BLOOD UREA NITROGEN 16 MG/DL (7-18); CALCIUM LEVEL 9.1 MG/DL (8.8-10.2); CARBON DIOXIDE LEVEL 30 MEQ/L (21-32); CHLORIDE LEVEL 106 MEQ/L (98-107); CHOLESTEROL LEVEL 203 MG/DL (<200); CHOLESTEROL RISK RATIO 3.222 (<5); CREATININE FOR GFR 0.95 MG/DL (0.55-1.30); FREE T4 0.86 NG/DL (0.76-1.46); GLOMERULAR FILTRATION RATE > 60.0 (>39); GLUCOSE, FASTING 94 MG/DL (70-100); HDL CHOLESTEROL 63 MG/DL (>40); LDL CHOLESTEROL 105 MG/DL (<100); MAGNESIUM LEVEL 1.9 MG/DL (1.8-2.4); NON-HDL-C 140 MG/DL; POTASSIUM SERUM 4.2 MEQ/L (3.5-5.1); SODIUM LEVEL 143 MEQ/L (136-145); TOTAL PROTEIN 7.5 GM/DL (6.4-8.2); TRIGLYCERIDES LEVEL 176 MG/DL (<150)
[2018-10-17 10:10] LABS: TOTAL 25(OH) VITAMIN D 18.4 NG/ML (30.0-100.0)
--- NOTE | 2018-10-17 11:17 | REP ---
LEFT SHOULDER, THREE VIEWS: HISTORY: Arm pain. There is no acute fracture or dislocation. The glenohumeral joint space is normal in appearance. There is moderate narrowing of the acromioclavicular joint space. IMPRESSION: Degenerative change as described above. Electronically Signed by Max Nino MD 10/17/2018 11:26 A
== END ==
LOC: M LAB 08:38
PROVIDERS: ATTEND Nurse Practitioner Family
DX: I10 Essential (primary) hypertension (principal); E55.9 Vitamin D deficiency, unspecified; E78.5 Hyperlipidemia, unspecified

== ENCOUNTER → 2018-11-18 | Outpatient (CLI) | payer MEDICARE ==
[~2018-11-18] MED LIST changes: -OMEP40CA2 PO; +OMEP40CA97 PO; +PANT40TA3 PO; +RANI150T14 PO; +SUCR1TAB56 PO
[2018-11-18 09:24] LABS: BASO # 0.1 10^3/uL (0.0-0.2); BASO % 1.1 % (0.0-1.0); EOS # 0.6 10^3/uL (0.0-0.50); EOS % 7.3 % (0.0-3.0); HEMATOCRIT 42.4 % (36.0-47.0); HEMOGLOBIN 13.7 g/dl (12.0-15.5); MEAN CORPUSCULAR HEMOGLOBIN 29.8 pg (27.0-33.0); MEAN CORPUSCULAR HGB CONC 32.3 g/dl (32.0-36.5); MEAN CORPUSCULAR VOLUME 92.4 fl (80.0-96.0); MONO # 0.6 10^3/uL (0.0-0.8); MONO % 7.7 % (0.0-5.0); NEUTROPHILS # 3.8 10^3/uL (1.8-7.7); NEUTROPHILS % 46.7 % (36.0-66.0); PLATELET COUNT, AUTOMATED 291 10^3/uL (150-450); RED BLOOD COUNT 4.59 10^6/uL (4.00-5.40); WHITE BLOOD COUNT 8.1 10^3/uL (4.0-10.0)
[2018-11-18 09:50] LABS: PERCENT SATURATION 15.3 % (13.2-45.0)
--- NOTE | 2018-11-18 10:34 | REP ---
Limited abdominal ultrasound for abdominal pain along abdominal wall scar: Ultrasound is performed along the abdominally decision from the supraumbilical area to the infraumbilical area. There is no evidence of hernia along the scar by ultrasound. On a previous CT dated November 09, 2017 there was a right lower quadrant ileostomy. There was a parastomal hernia on the comparison CT. The appendix is not identified on the ultrasound study today. Impression: The no evidence of abdominal wall hernia along the abdominal wall surgical laparotomy scar. Right lower quadrant ileostomy with peristomal hernia, similar to the comparison CT. The appendix could not be identified. Electronically Signed by Misael Mitchell MD 11/18/2018 10:25 A
[2018-11-18 11:21] LABS: FOLATE 15.4 NG/ML
[2018-11-22 00:06] LABS: NICOTINAMIDE 35.4 ng/mL (5.2-72.1); NICOTINIC ACID <5.0 ng/mL (0.0-5.0); VITAMIN B1 LEVEL WHOLE BLOOD 112.6 nmol/L (66.5-200.0)
== END ==
LOC: M RAD 08:14
PROVIDERS: ATTEND Internal Medicine Gastroenterology
DX: K31.5 Obstruction of duodenum (principal); K46.9 Unspecified abdominal hernia without obstruction or gangrene

== ENCOUNTER 2018-11-22 10:44 | Day surgery (SDC) | payer MEDICARE ==
[~2018-11-22] VITALS: Ht 157.5 cm; Wt 69.1 kg
[~2018-11-22 10:44] MED LIST changes: +LIDOCAINE 2% INJ 100 MG/5 ML SDV (FOR ANES.) As Ordered ONE; +NS 1,000 ML IV ONE; +OMEP40CA2 PO; -OMEP40CA97 PO; +PROPOFOL 200 MG/20 ML VIAL As Ordered ONE
[2018-11-22 12:10] VITALS: BP 104/68
--- NOTE | 2018-11-22 12:21 | ROOR ---
Patient Name: Lakisha Abrams Procedure Date: 11/22/2018 11:20 AM Date of : 1945 Age: 73 Room: [facility] Gender: Female Note Status: Finalized Procedure: Upper GI endoscopy Indications: Follow-up of gastro-esophageal reflux disease, Follow-up of duodenal obstruction Providers: Reji Villarreal MD Referring MD: Max Oh MD Requesting Provider: Medicines: Monitored Anesthesia Care Complications: No immediate complications. Procedure: Pre-Anesthesia Assessment: - Prior to the procedure, a History and Physical was performed, and patient medications and allergies were reviewed. The patient is competent. The risks and benefits of the procedure and the sedation options and risks were discussed with the patient. All questions were answered and informed consent was obtained. Patient identification and proposed procedure were verified by the physician, the nurse and the anesthesiologist in the procedure room. Mental Status Examination: alert and oriented. Airway Examination: normal oropharyngeal airway and neck mobility. Respiratory Examination: clear to auscultation. CV Examination: normal. Prophylactic Antibiotics: The patient does not require prophylactic antibiotics. Prior Anticoagulants: The patient has taken no previous anticoagulant or antiplatelet agents. ASA Grade Assessment: II - A patient with mild systemic disease. After reviewing the risks and benefits, the patient was deemed in satisfactory condition to undergo the procedure. The anesthesia plan was to use monitored anesthesia care (MAC). Immediately prior to administration of medications, the patient was re-assessed for adequacy to receive sedatives. The heart rate, respiratory rate, oxygen saturations, blood pressure, adequacy of pulmonary ventilation, and response to care were monitored throughout the procedure. The physical status of the patient was re-assessed after the procedure. The Endoscope was introduced through the mouth, and advanced to the second part of duodenum. The upper GI endoscopy was accomplished without difficulty. The patient tolerated the procedure well. Findings: LA Grade A (one or more mucosal breaks less than 5 mm, not extending between tops of 2 mucosal folds) esophagitis with no bleeding was found in the distal esophagus. Biopsies were taken with a cold forceps for histology. Verification of patient identification for the specimen was done by the physician and nurse using the patient's name, date and medical record number. Scattered mild inflammation characterized by erythema and granularity was found in the gastric antrum. Biopsies were taken with a cold forceps for Helicobacter pylori testing. An acquired benign-appearing, intrinsic mild stenosis was found in the first portion of the duodenum and was traversed. Biopsies were taken with a cold forceps for histology. Impression: - LA Grade A reflux esophagitis. Rule out Fernando's esophagus. Biopsied. - Gastritis. Biopsied. - Acquired duodenal stenosis. Biopsied. Recommendation: - Patient has a contact number available for emergencies. The signs and symptoms of potential delayed complications were discussed with the patient. Return to normal activities tomorrow. Written discharge instructions were provided to the patient. - Resume previous diet. - Continue present medications. - Use a proton pump inhibitor PO BID. - Await pathology results. - Follow an antireflux regimen. - Telephone GI clinic for pathology results in 2 weeks. - Return to primary care physician. Reji Villarreal MD Reji Villarreal MD 11/22/2018 12:21:16 PM Electronically signed by Reji Villarreal MD Number of Addenda: 0 Note Initiated On: 11/22/2018 11:20 AM Estimated Blood Loss: Estimated blood loss was minimal.
== END 2018-11-22 12:33 | disposition home or self-care (01) ==
LOC: M OPP 10:44
PROVIDERS: ATTEND Internal Medicine Gastroenterology
DX: K21.0 Gastro-esophageal reflux disease with esophagitis (principal); K29.70 Gastritis, unspecified, without bleeding; K31.5 Obstruction of duodenum; Z79.899 Other long term (current) drug therapy; Z87.891 Personal history of nicotine dependence

== ENCOUNTER → 2019-03-04 | Outpatient (CLI) | payer MEDICARE ==
[~2019-03-04] MED LIST changes: -LIDOCAINE 2% INJ 100 MG/5 ML SDV (FOR ANES.) As Ordered ONE; -NS 1,000 ML IV ONE; -OMEP40CA2 PO; +OMEP40CA97 PO; -PROPOFOL 200 MG/20 ML VIAL As Ordered ONE
--- NOTE | 2019-03-04 15:06 | REP ---
MRI LEFT SHOULDER: TECHNIQUE: Axial T2 fat sat, gradient echo, sagittal oblique T2 fat sat, coronal oblique T1, T2 fat sat. There is a full thickness complete tear of the supraspinatus tendon with retraction of the musculotendinous junction approximately 2.5 cm. There is also a full thickness tear of the infraspinatus tendon which appears to be incomplete. There is a full thickness incomplete tear of the subscapularis tendon. There are moderate hypertrophic degenerative changes of the acromioclavicular joint with downward sloping of the acromion, which is type II. Biceps tendon is displaced anteromedially out of the bicipital groove with mild diffuse increased signal and surrounding fluid suggesting tenosynovitis with possible partial tear proximally. There is no Hill-Sachs deformity. The deltoid muscle demonstrates no abnormal signal. There is fraying of the biceps labral complex and there also appears to be a SLAP tear. There is truncation of the posterior inferior labrum. Linear osteochrondral defect is seen in the superior glenoid with underlying subchondral cystic change throughout the posterior glenoid. Mild edema is seen in the acromion. There is moderate joint effusion. Fluid freely extends into the subacromial subdeltoid bursae. IMPRESSION: Full thickness complete tear supraspinatus tendon with retraction of the musculotendinous junction approximately 2.5 cm. Incomplete full thickness tear infraspinatus and subscapularis tendons. Moderate hypertrophic degenerative changes acromioclavicular joint with downward sloping of a type II acromion. Biceps tendon is displace anteromedially out of the bicipital groove with mild diffuse increased signal proximally and mild surrounding fluid representing a tendosynovitis and possibly a partial tendon tear. Fraying of the biceps labral complex with SLAP tear noted. There is truncation of the posterior inferior labrum. Linear osteochrondral defect superior glenoid somewhat posteriorly with associated subchondral cystic changes throughout the posterior glenoid. Moderate joint effusion. Electronically Signed by Misael Harp MD 03/04/2019 05:05 P
== END ==
LOC: M RAD 13:12
PROVIDERS: ATTEND Nurse Practitioner Family
DX: R93.7 Abnormal findings on diagnostic imaging of other parts of musculoskeletal system (principal); M19.012 Primary osteoarthritis, left shoulder

== ENCOUNTER → 2019-03-11 | Outpatient (CLI) | payer MEDICARE ==
[~2019-03-11] MED LIST changes: +E-Z-GAS II EFFERVESCENT PACKET (SODIUM BICARB./CITRIC ACID/SIMETHICONE) As Ordered ONE; +E-Z-HD 98% w/w 340GM SUSP BTL As Ordered ONE; +E-Z-PAQUE 96% w/w SUSP 176GM BTL As Ordered ONE
--- NOTE | 2019-03-11 20:00 | REP ---
UPPER GI AIR CONTRAST AND SMALL BOWEL FOLLOW THROUGH The procedure was performed under the direct supervision of Dr. Hyatt. The images were reviewed with Dr. Hyatt The drop forger helper film shows no organomegaly or pathological masses. The intestinal gas pattern is non-specific. There are three gallstones identified. There is an ileostomy overlying the right abdomen. There are surgical felicitas noted in the pelvis. Liquid barium and gas producing crystals were given in the erect position as well as liquid barium in the prone oblique position in order to perform a double contrast upper GI examination. Additionally liquid barium was given at the end of the examination in order to perform a small bowel follow through. The oral and pharyngeal stages of deglutition are unremarkable. There are esophageal transport there are tertiary waves demonstrated. There is no esophagitis, stricture, mucosal ring or hiatal hernia. Gastroesophageal reflux is not demonstrated on this examination. The stomach yu are normally outlined . The rugal folds are smooth and regular. There is no gastritis neoplasm or ulcer disease. In the descending portion of the duodenum there are thickened folds and narrowing which may represent duodenitis. There is no jenna ulcer identified. The visualized portion of the proximal small bowel appears normal in course and caliber. The barium column was followed through the small bowel to the level of the ileostomy. Small bowel transit time is approximately 60 minutes . During fluoroscopy gentle palpation shows all loops are freely movable and pliable. There are no fixed or angulated loops. The small bowel mucosal pattern is normal in course and caliber. There is no transition to suggest a partial small-bowel obstruction. Spot filming of the terminal ileum shows it to be unremarkable. Impression: 1. There are three gallstones identified. 2. Tertiary waves. 3. In the descending duodenum there are thickened folds and narrowing which may represent duodenitis. There is no jenna ulcer identified. 2.2 minutes of fluoro time was utilized for this procedure. Electronically Signed by SHANON Romero 03/11/2019 05:02 P Electronically Signed by Glenn Hyatt MD 03/11/2019 07:50 P
== END ==
LOC: M RAD 08:07
PROVIDERS: ATTEND Internal Medicine Gastroenterology
DX: K21.9 Gastro-esophageal reflux disease without esophagitis (principal)

== ENCOUNTER → 2019-09-11 | Outpatient (REF) | payer MEDICARE ==
[~2019-09-11] MED LIST changes: -E-Z-GAS II EFFERVESCENT PACKET (SODIUM BICARB./CITRIC ACID/SIMETHICONE) As Ordered ONE; -E-Z-HD 98% w/w 340GM SUSP BTL As Ordered ONE; -E-Z-PAQUE 96% w/w SUSP 176GM BTL As Ordered ONE
[2019-09-11 13:12] LABS: BASO # 0.1 10^3/uL (0.0-0.2); BASO % 1.5 % (0.0-1.0); EOS # 0.6 10^3/uL (0.0-0.5); EOS % 7.5 % (0.0-3.0); LYMPH # 2.8 10^3/uL (1.5-5.0); LYMPH % 37.2 % (24.0-44.0); MEAN CORPUSCULAR HEMOGLOBIN 29.6 pg (27.0-33.0); MEAN CORPUSCULAR HGB CONC 32.6 g/dl (32.0-36.5); MEAN CORPUSCULAR VOLUME 90.7 fl (80.0-96.0); MONO # 0.5 10^3/uL (0.0-0.8); MONO % 6.2 % (0.0-5.0); NEUTROPHILS # 3.6 10^3/uL (1.5-8.5); NEUTROPHILS % 47.5 % (36.0-66.0); PLATELET COUNT, AUTOMATED 334 10^3/uL (150-450); RED BLOOD COUNT 5.07 10^6/uL (4.00-5.40); WHITE BLOOD COUNT 7.5 10^3/uL (4.0-10.0)
[2019-09-11 13:31] LABS: ALT/SGPT 19 U/L (12-78); BILIRUBIN,TOTAL 0.5 MG/DL (0.2-1.0); BLOOD UREA NITROGEN 16 MG/DL (7-18); CALCIUM LEVEL 9.5 MG/DL (8.8-10.2); CARBON DIOXIDE LEVEL 27 MEQ/L (21-32); CHLORIDE LEVEL 107 MEQ/L (98-107); CHOLESTEROL LEVEL 284 MG/DL (<200); CHOLESTEROL RISK RATIO 4.896 (<5); CREATININE FOR GFR 1.03 MG/DL (0.55-1.30); FREE T4 0.98 NG/DL (0.76-1.46); GLOMERULAR FILTRATION RATE 56.1 (>39); GLUCOSE, FASTING 92 MG/DL (70-100); HDL CHOLESTEROL 58 MG/DL (>40); LDL CHOLESTEROL 186 MG/DL (<100); NON-HDL-C 226 MG/DL; POTASSIUM SERUM 4.3 MEQ/L (3.5-5.1); RHEUMATOID FACTOR QUANT < 10.0 IU/ML (<15.0); SODIUM LEVEL 139 MEQ/L (136-145); TOTAL PROTEIN 7.9 GM/DL (6.4-8.2); TRIGLYCERIDES LEVEL 199 MG/DL (<150)
[2019-09-11 14:03] LABS: TOTAL 25(OH) VITAMIN D 22.2 NG/ML (30.0-100.0)
[2019-09-13 00:06] LABS: ANTINUCLEAR ANTIBODIES DIRECT Negative (Negative); Lyme Disease IgG/IgM Antibodie <0.91 ISR (0.00-0.90); Lyme Disease IgM Ab Quantitati <0.80 index (0.00-0.79)
== END ==
LOC: M LAB REF 12:19
PROVIDERS: ATTEND Physician Assistant
DX: I10 Essential (primary) hypertension (principal); M46.1 Sacroiliitis, not elsewhere classified; M79.644 Pain in right finger(s)

== ENCOUNTER → 2019-09-15 | Outpatient (CLI) | payer MEDICARE ==
--- NOTE | 2019-09-15 19:05 | REPPI ---
Clinical: Low back pain. Technique: AP, lateral, bilateral oblique, flexion/extension, and coned-down views of the lumbosacral spine. Findings: Grade 1 anterolisthesis at the L5-S1 level increases from 7 mm to approximately 9 mm on flexion. Moderate multilevel degenerative changes noted including endplate sclerosis, early osteophytosis, disc space narrowing and hypertrophic facet changes. No acute fracture / compression injury. Incidental gallstones noted. Impression: 1. Spondylolisthesis and presumed chronic spondylolysis at the L5-S1 level appears to increase on flexion. 2. Moderate multilevel degenerative spondylosis. Electronically Signed by Jimbo Arita MD 09/15/2019 06:57 P
--- NOTE | 2019-09-15 19:31 | REPPI ---
Clinical: Right thumb pain. Technique: AP, lateral, bilateral oblique views of the right first digit. Findings: Moderate generalized arthritic changes include subchondral sclerosis, joint space narrowing, osteophytosis primarily involving the metacarpophalangeal and interphalangeal joints. No acute fracture or dislocation. Impression: Moderate osteoarthritic degenerative changes. Electronically Signed by Jimbo Arita MD 09/15/2019 07:23 P
== END ==
LOC: M PLAIMG 10:06
PROVIDERS: ATTEND Physician Assistant
DX: M46.1 Sacroiliitis, not elsewhere classified (principal); M79.644 Pain in right finger(s); M47.812 Spondylosis without myelopathy or radiculopathy, cervical region; M19.041 Primary osteoarthritis, right hand

== ENCOUNTER → 2019-10-21 | Outpatient (REF) | payer MEDICARE ==
[~2019-10-21] MED LIST changes: +ACET1TAB55 PO; +ALLO100T PO; +AMIO200T3 PO; +AMLO1TAB24 PO; +ATOR1TAB19 PO; +CEPH500C PO; +DRON2.5C11 PO; +ELIQ2.5T PO; +ELIQ5TAB PO; +FLUO20CA22 PO; +IBUP-1720 PO; +LEXA5TAB13 PO; +LISI10TA22 PO; +META1POW PO; +OMEP-218 PO; +ONDA4TAB6 PO; +PANT40TA29 PO; -PANT40TA3 PO; +escitalopram OR
[2019-10-21 19:28] LABS: CALCIUM LEVEL 8.6 MG/DL (8.8-10.2); CREATININE FOR GFR 1.06 MG/DL (0.55-1.30); GLOMERULAR FILTRATION RATE 54.2 (>39); POTASSIUM SERUM 4.6 MEQ/L (3.5-5.1)
== END ==
LOC: M LAB REF 18:20
PROVIDERS: ATTEND Physician Assistant
DX: I10 Essential (primary) hypertension (principal)

== ENCOUNTER 2019-11-11 12:47 | Inpatient (IN) | payer MEDICARE ==
[2019-11-11] VITALS (16 sets, daily range): BP systolic 82–110; BP diastolic 39–54
[~2019-11-11] VITALS: Ht 160 cm; Wt 69.5 kg
[~2019-11-11 12:47] MED LIST changes: -ACET1TAB55 PO; -ALLO100T PO; -AMIO200T3 PO; -AMLO1TAB24 PO; -ATOR1TAB19 PO; -CEPH500C PO; -DRON2.5C11 PO; -ELIQ2.5T PO; -ELIQ5TAB PO; -FLUO20CA22 PO; -IBUP-1720 PO; -LEXA5TAB13 PO; -LISI10TA22 PO; -META1POW PO; -OMEP-218 PO; -ONDA4TAB6 PO; -PANT40TA29 PO; +PANT40TA3 PO; -escitalopram OR
[2019-11-11 13:42] LABS: BASO # 0.1 10^3/uL (0.0-0.2); BASO % 0.6 % (0.0-1.0); EOS # 0.1 10^3/uL (0.0-0.5); HEMATOCRIT 42.7 % (36.0-47.0); HEMOGLOBIN 13.7 g/dl (12.0-15.5); LYMPH # 1.8 10^3/uL (1.5-5.0); LYMPH % 21.2 % (24.0-44.0); MEAN CORPUSCULAR HEMOGLOBIN 29.7 pg (27.0-33.0); MEAN CORPUSCULAR HGB CONC 32.1 g/dl (32.0-36.5); MEAN CORPUSCULAR VOLUME 92.4 fl (80.0-96.0); MONO # 0.6 10^3/uL (0.0-0.8); MONO % 6.5 % (0.0-5.0); NEUTROPHILS # 6.1 10^3/uL (1.5-8.5); NEUTROPHILS % 70.5 % (36.0-66.0); PLATELET COUNT, AUTOMATED 306 10^3/uL (150-450); RED BLOOD COUNT 4.62 10^6/uL (4.00-5.40); WHITE BLOOD COUNT 8.6 10^3/uL (4.0-10.0)
[2019-11-11] MEDS ORDERED: NS 1,000 ML IV ONE ×2 (13:45→14:45)
[2019-11-11] MEDS ORDERED: LISI10TA4 PO (13:52)
[2019-11-11] MEDS ORDERED: OMEP-218 PO (13:53)
[2019-11-11 13:56] LABS: INR 1.16; PARTIAL THROMBOPLASTIN TIME 31.6 SECONDS (25.0-38.4); PROTHROMBIN TIME 14.5 SECONDS (11.8-14.0)
[2019-11-11 14:14] LABS: BLOOD UREA NITROGEN 72 MG/DL (7-18); CALCIUM LEVEL 9.4 MG/DL (8.8-10.2); CARBON DIOXIDE LEVEL 12 MEQ/L (21-32); CHLORIDE LEVEL 106 MEQ/L (98-107); CPK CREATINE PHOSPHOKINASE 56 U/L (26-192); CREATININE FOR GFR 9.91 MG/DL (0.55-1.30); FREE T4 0.97 NG/DL (0.76-1.46); GLOMERULAR FILTRATION RATE 4.1 (>39); GLUCOSE, FASTING 116 MG/DL (70-100); MAGNESIUM LEVEL 2.6 MG/DL (1.8-2.4); MB/CK RELATIVE INDEX 3.57 (< OR =4); POTASSIUM SERUM 5.8 MEQ/L (3.5-5.1); SODIUM LEVEL 131 MEQ/L (136-145); THYROID STIMULATING HORMONE 0.554 uIU/ML (0.358-3.740); TROPONIN I < 0.02 NG/ML (< 0.10)
[2019-11-11 14:53] LABS: BILIRUBIN, URINE MANUAL NEGATIVE (NEGATIVE); GLUCOSE, URINE (UA) MANUAL NEGATIVE (NEGATIVE); KETONE, URINE MANUAL NEGATIVE (NEGATIVE); UROBILINOGEN, URINE MANUAL NORMAL (NORMAL)
[2019-11-11 14:58] LABS: AMORPHOUS SEDIMENT, URINE LARGE AMOUNT (NEGATIVE); HYALINE CAST, URINE NONE SEEN /lpf (0-1); MUCUS, URINE SMALL AMOUNT (NEGATIVE); SQUAMOUS EPITHELIAL CELL URINE NONE SEEN /hpf (SMALL AMT)
[2019-11-11 14:59] LABS: BACTERIA, URINE MOD AMOUNT
[2019-11-11] MEDS ORDERED: NS 500 ML IV ONE ×3 (15:45→22:45)
[2019-11-11] MEDS ORDERED: ATOR1TAB19 PO (15:59)
--- NOTE | 2019-11-11 16:12 | REP ---
CT brain: 11/11/2019. Indication: Weakness. Dizziness. Technique: Unenhanced CT axial images of the brain were obtained from skull base to vertex with coronal reconstructions provided. Comparison: 03/05/2012. Findings: There is no acute intracranial hemorrhage, acute cortical infarction, mass effect, hydrocephalus or significant fluid within the visualized paranasal sinuses/mastoid air cells. Age-related volume loss and mild sequelae of chronic microangiopathic ischemic disease are present. Impression: No acute intracranial process. Electronically Signed by Patricio Phillips DO 11/11/2019 04:04 P
[2019-11-11] MEDS ORDERED: cefTRIAXone SOD 2 GM in D5W MINI-BAG PLUS 50 ML IV ONE (17:15)
--- NOTE | 2019-11-11 19:39 | CR.PDOC ---
General Date of Consultation: Nov 11, 2019 Referring Provider: ALEA DAVIS MD Attending Physician: IVÁN SHEIKH MD Consultation REASON FOR CONSULTATION: Acute renal failure with hypotension, hyperkalemia, and non-anion gap metabolic acidosis. CHIEF COMPLAINT: Lethargy and nausea with decreased oral intake for the past 4 days HISTORY OF PRESENT ILLNESS: Lakisha is a pleasant 74-year-old female with PMHx of ulcerative colitis s/p colectomy and proctectomy with colostomy, hypertension, hyperlipidemia, and previous staghorn calculi s/p bilateral percutaneous nephrolithotomy who pres ented to the emergency department after being driven in by her daughter c/o lethargy and persistent nausea over the past four days. Due to her nausea, she's had little po intake since 11/07, eating only a couple bites of watermelon and drinking only sips of water and soda. She endorses one episode of nonbloody emesis two days ago (11/08), as well as oliguria. She reports left flank and left lower quadrant abdominal pain and discomfort that acutely arose this afternoon. Over the past four days she feels as though her colostomy output has been normal to slightly reduced, with non-watery stool. She reports having similar symptomatic presentations in the past, most recently two years ago, and claims that whenever she has persistent nausea like this, she effectively avoids any substantial po intake. She does however state her nausea is not present at time of ED consultation. She denies any recent fever, chills, night sweats, dysphagia, odynophagia, chest pain, chest pressure, palpitations, shortness of breath or lower extremity edema. Her primary care physician recently started her on 10 mg of lisinopril two months ago. She denies any recent travel or exposure to known sick contacts. She has no known drug allergies. In the ED, she was found to be hypotensive with systolic blood pressures in the 70s to 80s, hyperkalemic (sK 5.8), with acute renal failure (BUN 72, sCr 9.91, GFR 4.1%), and non-AG metabolic acidosis (POC ABG in the ED showed pH 7.12, pCO2 26.9, HCO3- 8.7). Urinalysis revealed moderate amount of urine bacteria with large amount of amorphous sediment, positive leukocyte esterase, negative urine nitrite, 15-20 uWBC, and 5-7 uRBC. The patient was then administered 3 s uccessive IV normal saline fluid boluses and the nephrology service was consulted for management of acute renal failure with non-anion gap metabolic acidosis and hyperkalemia. ALLERGIES: Please see below. HOME MEDICATIONS: Please see below. PAST MEDICAL HISTORY: Ulcerative colitis s/p proctectomy and colectomy with right-sided colostomy Hypertension Hyperlipidemia History of bilateral staghorn calculi s/p bilateral percutaneous nephrolithotomy PAST SURGICAL HISTORY: Proctectomy and colectomy with subsequent right-sided colostomy Bilateral percutaneous nephrolithotomy Unspecified upper GI surgery performed in the last few years by Dr. Villarreal of gastroenterology Surgery for right ankle fracture FAMILY HISTORY: Patient reports history of nephrolithiasis on both sides of her family with no known history of chronic kidney disease or end-stage renal disease. SOCIAL HISTORY: Patient is retired. She reports rare use of alcohol (1-2 drinks per year) and denies any current former illegal drug use. REVIEW OF SYSTEMS: CONSTITUTIONAL: Denies recent unintentional change in weight, fevers, chills, or night sweats EYES: Denies visual changes, double vision, or blurry vision ENT: Endorses mild sore throat. Denies dysphagia or odynophagia. CARDIOVASCULAR: Denies chest pain, shortness of breath, paroxysmal nocturnal dyspnea, orthopnea, edema, or palpitations. RESPIRATORY: Denies shortness of breath, cough, sputum production, or pleuritic chest pain GASTROINTESTINAL: Endorses moderate left flank and left lower quadrant pain arising within past hour. Reports her persistent nausea over the past 4 days is not currently present. Denies increased GI losses through colostomy. GENITOURINARY: Endorses oliguria over the past 4 days. Denies dysuria or hematuria. MSK: Endorses left flank pain NEUROLOGY: Endorses history of recurrent mild to moderate headaches that resolve spontaneously. Denies any changes to sight/smell/hearing/taste, seizures, syncope, numbness or paresthesias ENDOCRINE: Endorses dry mouth and mild thirst. Denies heat or cold intolerance. HEMATOLOGIC: Denies easy bleeding or bruising. LYMPHATIC: Denies any new lumps or bumps anywhere PHYSICAL EXAMINATION: VITAL SIGNS: Please see below. GENERAL APPEARANCE: Elderly female lying in bed at time of exam. Appears mildly lethargic but responds timely and appropriately to questions and commands. No acute distress. Alert and oriented 3. HEENT: Normocephalic, atraumatic. Wearing eyeglasses. Noninjected, anicteric sclera, without conjunctival pallor. Dry mucous membranes. Neck is supple with no thyromegaly, lymphadenopathy, or JVD appreciated. RESPIRATORY: Lungs are clear to auscultation bilaterally with no adventitious breath sounds appreciated. Slightly diminished tidal volume. Symmetric chest exp ansion. Breathing room air. Speaking full sentences. CARDIOVASCULAR: Regular rate and regular rhythm. +S1, S2. 2/6 systolic murmur auscultated best at the right parasternal second intercostal space. No JVD. Easily visible carotid pulse. -HJR. ABDOMEN: Soft and nondistended. Tender in the left lower quadrant with accompanying left CVA tenderness. Hypoactive bowel sounds throughout. Right lower quadrant colostomy bag is present. There is a vertical midline scar. There is a Renee catheter in place with approximately 100 and 100 of urine collected with visual evidence of cloudy urine with sediment within the catheter. EXTREMITIES: Lower extremities are free of edema with no appreciated cyanosis or clubbing. 2+ radial and posterior tibial pulses bilaterally. NEUROLOGICAL: Awake, alert and oriented 3. No focal neurologic deficits appreciated. Non-dysarthric speech. PSYCHIATRIC: Mood and affect appear appropriate Skin: Diminished skin turgor, with thin-appearing skin overlying upper and lower extremities. Skin is warm and dry. LN: No significant cervical or supraclavicular lymphadenopathy appreciated. LABORATORY DATA: Please see below. ASSESSMENT/PLAN: This is a 74-year-old female with history of right-sided colostomy, hypertension started two months ago on lisinopril 10 mg, hyperlipidemia, previous staghorn calculi, with baseline creatinine of about 1 (1.02 last month, October 2019) and chronic kidney disease, stage IIIa who is being admitted for management of severe sepsis secondary to left-sided pyelonephritis, acute renal failure, non- anion gap metabolic acidosis, and hyperkalemia. #Severe sepsis secondary to left-sided pyelonephritis Patient had positive SIRS criteria upon presentation with hypotension (systolic blood pressure in the 70s and 80s) with heart rate of 91. She is status post two, 1 L normal saline boluses and one, 500 mL normal saline bolus. Her blood pressure improved somewhat to systolics in the 80s and 90s after the initial two boluses. She was administered 2 g IV dose of ceftriaxone and will begin a scheduled daily ceftriaxone dose tomorrow (11/11). Upon completion of her third normal saline bolus, she will be administered 1/2 normal saline with 75 mEq of bicarbonate maintenance hydration to replace low bicarbonate and help with the acidosis. Urinalysis revealed moderate amount of urine bacteria, positive leukocyte esterase, and large amount of amorphous sediment. Inspection of Renee catheter showed visible sediment and cloudy appearing urine; this, coupled with her left CVA tenderness, indicates likely left-sided pyelonephritis as infecti ous source. Urine culture is pending and was drawn prior to ceftriaxone administration. A lactic acid level was ordered and is also pending. #Acute oliguric renal failure on chronic kidney disease, stage IIIa This is prerenal in nature and likely secondary to dehydration from recent poor oral intake and initiation of lisinopril two months ago. Her sCr appeared around baseline just a few weeks ago (1.02 in October 2019) and correlated with eGFR around 54%. She has received three boluses of normal saline and will begin maintenance hydration in the form of 1/2 normal saline with 75 mEq of bicarbon ate once the final bolus has been completed. Her lisinopril will be held and all nephrotoxic agents will be avoided. #Non-anion gap metabolic acidosis This is likely the result of her acute renal failure and hypotension secondary to recent poor oral intake and initiation of TIFFANY inhibitor. She has received adequate IV fluid boluses and will subsequently received maintenance hydration in the form of 1/2 normal saline and bicarbonate to replace the bicarbonate and combat the acidosis. Lactic acid level has been ordered and is pending. Her lisinopril has been held and all nephrotoxic agents will be avoided. #Hyperkalemia This is likely the result of her non-anion gap metabolic acidosis causing intracellular movement of H+ and subsequent extracellular release of K+. As we correct the acidosis through IV fluid hydration with bicarbonate supplementation, patient's serum potassium should normalize. Thank you for allowing us to partake in Lakisha's care. We will continue to follow along with her inpatient course and plan to see her again tomorrow morning. Should any questions or concerns arise from a renal standpoint, please do not hesitate to contact the nephrology service. Vital Signs/I&O Vital Signs Date Time Temp Pulse Resp B/P (MAP) Pulse Ox O2 Delivery O2 Flow Rate FiO2 11/11/19 17:45 77 92/45 (61) 11/11/19 17:30 96.4 18 98 Room Air Laboratory Data Labs 24H Laboratory Tests 2 11/11/19 13:19: Immature Granulocyte % (Auto) 0.2, Neutrophils (%) (Auto) 70.5H, Lymphocytes (%) (Auto) 21.2L, Monocytes (%) (Auto) 6.5H, Eosinophils (%) (Auto) 1.0, Basophils (%) (Auto) 0.6, Neutrophils # (Auto) 6.1, Lymphocytes # (Auto) 1.8, Monocytes # (Auto) 0.6, Eosinophils # (Auto) 0.1, Basophils # (Auto) 0.1, Nucleated Red Blood Cells % (auto) 0.0, Prothrombin Time 14.5H, Prothromb Time International Ratio 1.16, Activated Partial Thromboplast Time 31.6, Anion Gap 13, Glomerular Filtration Rate 4.1L, Calcium Level 9.4, Magnesium Level 2.6H, Total Creatine Kinase 56, Creatine Kinase MB 2.0, Creatine Kinase MB Relative Index 3.57, Troponin I < 0.02, Thyroid Stimulating Hormone (TSH) 0.554, Free Thyroxine 0.97 11/11/19 14:46: Urine Color (ILEANA) YELLOW, Urine Appearance (ILEANA) CLOUDYH, Urine pH (ILEANA) 5.0, Urine Specific [place] (ILEANA) 1.022, Bedside Urine Glucose (UA) NEGATIVE, Bedside Urine Ketones (LAB) NEGATIVE, Bedside Urine Blood POSITIVEH, Bedside Urine Nitrite (LAB) NEGATIVE, Bedside Urine Bilirubin (LAB) NEGATIVE, Bedside Urine Urobilinogen (LAB) NORMAL, Bedside Urine Leukocyte Esterase (L POSITIVEH, Urine Sediment Examination PERFORMED, Urine RBC 5-7H, Urine WBC 15-20H, Urine Squamous Epithelial Cells NONE SEEN, Urine Amorphous Sediment LARGE AMOUNTH, Urine Bacteria MOD AMOUNTH, Urine Hyaline Casts NONE SEEN, Urine Mucus SMALL AMOUNTH 11/11/19 15:29: POC pH (Misc Panel) 7.120*L, POC Base Excess (Misc Panel) -21.0L, POC Saturated Percent O2 (Misc) 96, POC pO2 (Misc Panel) 105.0, POC pCO2 (Misc Panel) 26.9L, P OC HCO3 (Misc Panel) 8.7L, POC Total CO2 (Misc Panel) 10.0L CBC/BMP Laboratory Tests 11/11/19 13:19 Microbiology Microbiology 11/11/19 Urine Culture, Received Pending Allergies Coded Allergies: No Known Allergies (Unverified , 08/12/18) Home Medications Scheduled Atorvastatin Calcium (Atorvastatin Calcium) 10 Mg Tablet, 10 MG PO DAILY, (Reported) Fluoxetine HCl (Prozac) 40 Mg Cap, 40 MG PO DAILY, (Reported) Lisinopril (Lisinopril) 10 Mg Tablet, 10 MG PO DAILY, (Reported) Omeprazole (Omeprazole) 20 Mg Capsule.dr, 20 MG PO DAILY, (Reported) Scheduled PRN Acetaminophen (Acetaminophen) 500 Mg Tab, 500 MG PO Q6H PRN for PAIN, (Reported) GME ATTESTATION GME ATTESTATION My faculty preceptor for this patient encounter was physically present during the encounter and was fully available. All aspects of the patient interview, examination, medical decision making process, and medical care plan development were reviewed and approved by the faculty preceptor. The faculty preceptor is aware and concurs with the plan as stated in the body of this note and will attest to such by his/her cosignature. ATTENDING NOTE 74 Yr old woman wit CKD3, Baseline Cr 1.02,h/o bilateral staghorn calculi in past,Colostomy status,HTN (on lisinopril.) Admitted with DINA,Hypotension,Hyperkalemia,Normal anion gap metabolic acidosis and cloudy urine with a lot of amorphous sediment. Acute Oliguric DINA Severe Sepsis (Hypotension despite 30ml/kg fluid bolus,tachycardia,DINA, Evidence of UTI) Hyperkalemia Non anion gap metabolic acidosis Colostomy status. IV NS fluid resuscitation 30ml/kg followed by IV bicarb containing fluids. Repeat Renal profile at night. Stop ACEi.Keep Renee, Monitor I/O. Empiric Coverage with Rocephin. Pancultured, Lactate. IV Levophed if MAP<60. No urgent need for HD. 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 BULMARO CAIN D.O. Nov 11, 2019 19:39 IVÁN SHEIKH MD Nov 11, 2019 22:34
[2019-11-11] MEDS: SODIUM BICARBONATE 75 MEQ in NS 0.45% 1,000 ML IV SCH (20:33)
[2019-11-11] MEDS: NYSTATIN 100,000 UNITS/GM TOPICAL PWD 15 GM TOP SCH (21:21)
[2019-11-11] MEDS: NYSTATIN 500,000 U/5 ML SUSP UDC SSP SCH (21:21)
[2019-11-11] MEDS: ACETAMINOPHEN TAB 650MG DOSE (2X325MG) PO PRN (21:22)
--- NOTE | 2019-11-11 21:28 | ECGEPIP ---
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
--- NOTE | 2019-11-11 22:13 | HPE ---
DATE OF ADMISSION: 11/11/2019 CHIEF COMPLAINT: "I wasn't feeling good." HISTORY OF THE PRESENT ILLNESS: This is a 74-year-old female with a history of ulcerative colitis with right-sided ileostomy, hypertension, hyperlipidemia, chronic kidney disease, stage III, history of kidney stones, reflux and depression, right-sided lithotripsy and stenting in May 2016, presents to the emergency room with complaints of decreased appetite, intentional weight loss of 8 pounds over the past month by dieting, not feeling well since the 07 of November when she had a cook out at home. The patient said that her ostomy was normal, and she has not noticed any increased watery output through there, usually is drained about four times a day. She describes some abdominal pain and left-sided blank pain without fever or chills. No nausea or vomiting. She has had a sore throat for the past week but no dysphagia or odynophagia, not seen a physician. No fever or chills at home. The patient denies taking any nonsteroidal anti-inflammatory drugs for the pain and presented with lightheadedness and dizziness, found to be hypotensive in the emergency room (ER) with systolic pressures 70s and 80s mmHg and a heart rate of 91. She was given two liters IV normal saline boluses with repeat pressures of 93 to 95 at the bedside and was give empiric ceftriaxone for presumed urinary tract infection. The patient was found to be oliguric with hyperkalemia; potassium of 5.8 and creatinine of 9.9. Dr. Dong, project development leader contractor buyer, was called emergently to decide whether the patient needs stat dialysis. Due to the dizziness and lightheadedness, CT of the head was performed, which was negative. Patient's CT abdomen and pelvis are not read. The patient does have clinica costovertebral angle (CVA) tenderness and treated for acute pyelonephritis on the left with renal failure. PAST MEDICAL HISTORY: Ulcerative colitis. Hyperlipidemia. Hypertension. Chronic kidney disease, stage III. Ileostomy in the past. History of kidney stones with right-sided lithotripsy and stenting. Reflux disease. Depression. PAST SURGICAL HISTORY: Colectomy. Ileostomy. History of right-sided nephrolithotripsy with stenting May 2016. ALLERGIES: No known drug allergies. HOME MEDICATIONS: - acetaminophen 500 mg every 6 hours as needed for pain - atorvastatin 10 mg daily - Prozac 40 mg daily - lisinopril 10 mg daily - Prilosec 20 mg daily SOCIAL HISTORY: The patient denies recreational drug use, alcohol use. Retired. FAMILY HISTORY: Mother age 88 with stomach cancer, father age 52 with coronary artery disease, myocardial infarction ([place]). One sister, two brothers younger than her. One brother passed at the age of 53 with throat cancer. REVIEW OF SYSTEMS: Per history of the present illness. 12-point system otherwise negative. PHYSICAL EXAMINATION: Temperature is 99.1, pulse 91, respiratory rate 18, blood pressure 83/43 and 78/41. Current blood pressure at the bedside is 93/49. Input of 2-1/2 liters, currently with IV fluids running at sodium bicarbonate 150 mL an hour. Generally, patient is awake, alert, oriented to person, place and time, answering questions appropriately. Anicteric sclerae. No use of respiratory accessory muscles. No jaundice, no icterus. Pupils are round and reactive. Dry mucous membranes, chapped lips. Lungs are clear to auscultation. No wheezing, rales or rhonchi. No conversational dyspnea. Air entry is equal. No adventitious breath sounds. Heart: S1, S2, sinus rhythm. No murmurs, rubs, or gallops. No jugular venous distention. Abdomen is soft, nontender, nondistended. Positive bowel sounds. Right-sided colostomy bag is noted. Vertical well-healed scar midline noted. The patient has left-sided costovertebral angle tenderness. Extremities: No cyanosis, clubbing or any pitting edema. LABORATORY DATA: White count 8.6, hemoglobin 13, hematocrit 42, platelet count 306, 70% neutrophils. Sodium 131, potassium 5.8, chloride 106, bicarbonate 21, BUN 72, creatinine 9.91, glucose of 116, lactic acid 0.7, calcium 9.4, magnesium 2.6, total CK 56, MB fraction of 2. Troponin less than 0.02. TSH of 0.554, free T4 of 0.97. INR of 1.16. Urinalysis: Cloudy appearance, positive blood, negative nitrite, positive leukocyte esterase, 15-20 WBCs. IMAGING STUDIES: CT abdomen and pelvis pending. CT head negative. ASSESSMENT AND PLAN: This is a 74-year-old female with a history of ulcerative colitis with right-sided colostomy, hypertension, hyperlipidemia, chronic kidney disease, stage III, reflux and kidney stones, depression, right-sided nephrolithotripsy and stenting May 2016, presents to the emergency room with complaints of not feeling well since the 07 of November, not eating anything with intentional weight loss of 8 pounds. Patient was found to have oliguric acute on chronic renal failure with hyperkalemia, metabolic acidosis, admitted for the following issues: The patient is admitted as an inpatient for two midnights for: 1. Acute on chronic renal failure, stage III at baseline. Currently with a creatinine of 9. Patient does have hyperkalemia with non-anion gap metabolic acidosis, hyperkalemia, hyponatremia and oliguric. Nephrology has been consulted and currently managing the bicarbonate drip. Strict intake and output, daily weights and Renee catheter has been placed. CT abdomen and pelvis report is still pending. Patient has been given IV ceftriaxone for presumed urinary tract infection and pyelonephritis. 2.Sepsis due to Left-sided pyelonephritis. Currently on IV fluids and ceftriaxone, and acetaminophen for pain or fever. iv levophed gtt if needed to keep MAP 60-65. Per robbi Romo to give ns iv bolus 500ml, and better to keep on levophed iv gtt to increase perfusion and continue iv bicarb gtt. may need to consult Dr. Gavin for central line. 3. Hypertension. Currently with low blood pressure of 78 when she presented to the hospital. Her lisinopril has been discontinued due to renal failure and hypotension. 4. History of ulcerative colitis with right-sided colostomy. Per the patient, she has not had any increased output through her colostomy bag. No perfuse diarrhea or significant volume loss. 5. Hyperlipidemia. May resume on home dose of atorvastatin. 6. Depression. On fluoxetine. 7. Reflux. Continue on Prilosec, renally dose if needed. 8. Sore throat. Check a rapid strep screen. 9. History of nephrolithiasis, lithotripsy. if obstructive uropathy, will need urology consulted in am. gelacio for now. monitor i/o, and abx. MTDD
[2019-11-11] MEDS ORDERED: VANCOMYCIN HCL 1,000 MG, VIAL MATE ADAPTER 1 EACH in D5W 250 ML IV ONE (23:00)
[2019-11-11] MEDS ORDERED: NOREPINEPHRINE BITARTRATE 16 MG in D5W 484 ML IV SCH (23:00)
[2019-11-11] MEDS ORDERED: LIDOCAINE 1% MDV 20ML VIAL As Ordered ONE (23:01)
[2019-11-11 23:07] LABS: ALBUMIN 2.9 GM/DL (3.2-5.2); CALCIUM LEVEL 7.6 MG/DL (8.8-10.2); CREATININE FOR GFR 6.89 MG/DL (0.55-1.30); GLOMERULAR FILTRATION RATE 6.3 (>39); PHOSPHORUS LEVEL 6.6 MG/DL (2.5-4.9); POTASSIUM SERUM 5.5 MEQ/L (3.5-5.1)
--- NOTE | 2019-11-11 23:20 | REP ---
CHEST, SINGLE VIEW: There is no evidence of acute infiltrate. No pleural effusion is seen. The heart is normal in size. The mediastinal silhouette is unremarkable. The visualized osseous structures are intact. IMPRESSION: No acute pulmonary disease. Electronically Signed by Misael Harp MD 11/13/2019 09:09 A
[2019-11-11] MEDS ORDERED: LIDOCAINE 1% MDV 20ML VIAL SC ONE (23:30)
[2019-11-12] VITALS (41 sets, daily range): BP systolic 80–128; BP diastolic 38–72
[2019-11-12] MEDS: SODIUM BICARBONATE 75 MEQ in NS 0.45% 1,000 ML IV SCH ×3 (04:28→21:02)
[2019-11-12 05:29] LABS: HEMATOCRIT 31.9 % (36.0-47.0); MEAN CORPUSCULAR HEMOGLOBIN 29.8 pg (27.0-33.0); MEAN CORPUSCULAR VOLUME 93.3 fl (80.0-96.0); PLATELET COUNT, AUTOMATED 218 10^3/uL (150-450); RED BLOOD COUNT 3.42 10^6/uL (4.00-5.40); WHITE BLOOD COUNT 7.5 10^3/uL (4.0-10.0)
[2019-11-12 05:32] LABS: BLOOD UREA NITROGEN 57 MG/DL (7-18); CALCIUM LEVEL 7.2 MG/DL (8.8-10.2); CARBON DIOXIDE LEVEL 15 MEQ/L (21-32); CHLORIDE LEVEL 115 MEQ/L (98-107); CREATININE FOR GFR 5.01 MG/DL (0.55-1.30); GLUCOSE, FASTING 83 MG/DL (70-100); HEMOGLOBIN 10.2 g/dl (12.0-15.5); POTASSIUM SERUM 4.6 MEQ/L (3.5-5.1); SODIUM LEVEL 140 MEQ/L (136-145)
[2019-11-12 05:50] LABS: C REACTIVE PROTEIN QUANTITATIV < 0.30 MG/DL (0.00-0.30)
--- NOTE | 2019-11-12 07:28 | REP ---
REASON: Pain. History of calculi. COMPARISON: 11/09/2017 There are mild chronic lung base changes, status quo. There are no pleural or pericardial effusions. There is cholelithiasis, status quo. Limited evaluation of the liver and spleen shows no gross abnormalities or significant changes from the prior exam. Limited evaluation of the pancreas and adrenal glands shows no gross abnormalities or significant changes from the prior exam. Once again, there are bilateral nonobstructing nephroliths. There is no hydronephrosis or hydroureter. There are no ureteroliths. There is a Renee balloon catheter in the urinary bladder, decompressing it. There is a trace amount of free pelvic fluid. There is no free fluid or free air in the abdomen. Limited evaluation of the bowel loops and their mesenteries shows no gross abnormalities. Limited evaluation of the abdominal aorta and para-aortic regions shows no gross abnormalities. There is an unchanged right lower quadrant ileostomy. The patient is status post colectomy. Bone window technique throughout the examination shows no significant change in appearance of the osseous structures. IMPRESSION: Stable appearing chronic changes. There is no evidence of acute disease. Electronically Signed by Eleuterio Connell DO 11/12/2019 09:32 A
[2019-11-12] MEDS: cefTRIAXone SOD 2 GM in D5W MINI-BAG PLUS 50 ML IV SCH (09:16)
[2019-11-12] MEDS: NYSTATIN 100,000 UNITS/GM TOPICAL PWD 15 GM TOP SCH ×2 (09:17→20:54)
[2019-11-12] MEDS: FLUoxetine 20 MG CAP PO SCH (09:17)
[2019-11-12] MEDS: ATORVASTATIN 10 MG TAB PO SCH (09:17)
[2019-11-12] MEDS: OMEPRAZOLE 20 MG CAP PO SCH (09:17)
[2019-11-12 09:45] LABS: CORTISOL AM 13.2 UG/DL (4.3-22.4)
--- NOTE | 2019-11-12 10:20 | REP ---
CHEST SINGLE VIEW: There is no evidence of acute infiltrate. No pleural effusion is seen. The heart is normal in size. The mediastinal silhouette is unremarkable. The visualized osseous structures are intact. There is a left central venous catheter placed with the tip at the junction of the superior vena cava and right atrium. There is no pneumothorax. IMPRESSION: No acute pulmonary disease. Electronically Signed by Misael Harp MD 11/13/2019 09:19 A
[2019-11-12] MEDS: NYSTATIN 500,000 U/5 ML SUSP UDC SSP SCH ×2 (11:51→20:54)
--- NOTE | 2019-11-12 17:28 | IPNPDOC ---
Text Note Date of Service The patient was seen on 11/12/19. NOTE Subjective: -Feels so much better this morning, sitting up in chair, off levophed that was switched off a few minutes before I examined her. Reporting that she did not have any particular complaints before this illness started other than general feeling of unwellness. Objective: VITAL SIGNS: Please see below. GENERAL APPEARANCE: Elderly W, NAD, conversational, sitting up in chair HEENT: NCAT, wears corrective lenses, anicteric, non injected, PERRLA, EOMI, MMM NECK: supple, no adenopathy, thyromegaly or JVD RESPIRATORY: Breathing comfortably on room air. Speaking full sentences. CTAB CARDIOVASCULAR: RRR, has a 2/6 systolic murmur RUSB ABDOMEN: Normoactive sounds, soft, LLQ mild TTP and left CVA tenderness. Right lower quadrant colostomy bag. Renee draining clear urine EXTREMITIES: no LE edema, WWP NEUROLOGICAL: Awake, alert and oriented 3. No focal neurologic deficits appreciated. Clear speech PSYCHIATRIC: AOx3 Skin: No lesions or rashes noted LN: No significant cervical or supraclavicular lymphadenopathy appreciated. LABORATORY DATA: Please see below. ASSESSMENT/PLAN: 74 yo W with a history of ulcerative colitis s/p colectomy and proctectomy with colostomy, hypertension, hyperlipidemia, and previous staghorn calculi s/p bilateral percutaneous nephrolithotomy who was admitted for management of septic shock presumed 2/2 left-sided pyelonephritis, DINA, non-anion gap metabolic acidosis, and hyperkalemia. #Septic shock 2/2 to left-sided pyelonephritis: +SIRS with tachycardia and AMS and hypotension resistant to fluid resuscitation, however did not have leukocyotis, lactic acidosis and elevated inflammatory markers. However improved with antibiotics and with evidence of pyelo. -urine had bacteria, positive leukocyte esterase, and large amount of amorphous sediment, with left CVA tenderness. Follow up urine culture -continue ceftriaxone -MAP goal >65 #Acute oliguric renal failure on chronic kidney disease, stage IIIa -Likely 2/2 dehydration from poor PO -now s/p 3L NS and now on bicarb gtt with improvement Cr and acid base status, as well as urine output -Held lisinopril and avoid nephrotoxic meds -Nephrology on board, appreciate recs #Non-anion gap metabolic acidosis -Possible GI losses but she reports normal stoma output. Also likely contribution from DINA -continue bicarb gtt per nephrology #Hyperkalemia: 2/2 renal insult, resolved. #Chronic Hypertension. -Holding antihypertensives while hypotensive #History of ulcerative colitis with right-sided colostomy. -Stoma output is at baseline #Hyperlipidemia -continue home atorvastatin. #Depression -Continue home fluoxetine. #GERD -Continue on Prilosec #Sore throat. -Rapid strep negative #History of nephrolithiasis, lithotripsy. -No evidence of obstructive uropathy at this time -gelacio for now -monitor i/o DVT ppx: heparin SQ Q 12H VS,Fishbone, I+O VS, Fishbone, I+O Laboratory Tests 11/11/19 22:39 11/12/19 04:50 Vital Signs Date Time Temp Pulse Resp B/P (MAP) Pulse Ox O2 Delivery O2 Flow Rate FiO2 11/12/19 16:00 98.5 68 18 117/54 (75) 98 Room Air I&O- Last 24 Hours up to 6 AM 11/12/19 06:00 Intake Total 5814.1 ml Output Total 885 ml Balance 4929.1 ml AYAKA BAJWA MD Nov 12, 2019 17:28
[2019-11-12] MEDS: HEPARIN SOD (PORCINE) 5000UNITS/ML VIAL (J1644 PER 1000UNITS) SQ SCH (21:02)
[2019-11-13] VITALS (12 sets, daily range): BP systolic 96–165; BP diastolic 49–72
[2019-11-13 05:58] LABS: HEMATOCRIT 28.5 % (36.0-47.0); HEMOGLOBIN 9.3 g/dl (12.0-15.5); MEAN CORPUSCULAR HEMOGLOBIN 29.2 pg (27.0-33.0); MEAN CORPUSCULAR HGB CONC 32.6 g/dl (32.0-36.5); MEAN CORPUSCULAR VOLUME 89.3 fl (80.0-96.0); PLATELET COUNT, AUTOMATED 176 10^3/uL (150-450); RED BLOOD COUNT 3.19 10^6/uL (4.00-5.40); WHITE BLOOD COUNT 5.6 10^3/uL (4.0-10.0)
[2019-11-13 06:28] LABS: CALCIUM LEVEL 6.5 MG/DL (8.8-10.2); CREATININE FOR GFR 1.16 MG/DL (0.55-1.30); GLOMERULAR FILTRATION RATE 48.9 (>39); POTASSIUM SERUM 3.5 MEQ/L (3.5-5.1)
[2019-11-13] MEDS: SODIUM BICARBONATE 75 MEQ in NS 0.45% 1,000 ML IV SCH (06:33)
[2019-11-13] MEDS: cefTRIAXone SOD 2 GM in D5W MINI-BAG PLUS 50 ML IV SCH (08:09)
[2019-11-13] MEDS: FLUoxetine 20 MG CAP PO SCH (08:10)
[2019-11-13] MEDS: NYSTATIN 100,000 UNITS/GM TOPICAL PWD 15 GM TOP SCH ×2 (08:10→21:04)
[2019-11-13] MEDS: ATORVASTATIN 10 MG TAB PO SCH (08:10)
[2019-11-13] MEDS: NYSTATIN 500,000 U/5 ML SUSP UDC SSP SCH ×2 (08:10→21:00)
[2019-11-13] MEDS: OMEPRAZOLE 20 MG CAP PO SCH (08:10)
[2019-11-13] MEDS: HEPARIN SOD (PORCINE) 5000UNITS/ML VIAL (J1644 PER 1000UNITS) SQ SCH ×2 (08:10→21:04)
[2019-11-13] MEDS ORDERED: BICITRA 30ML SOLN UDC PO ONE (10:30)
[2019-11-13] MEDS ORDERED: CALCIUM GLUCONATE 1,000 MG in D5W MINI-BAG PLUS 100 ML IV ONE (11:00)
[2019-11-13] MEDS: KCL 20MEQ IN D5W 1000ML 1,000 ML IV SCH ×2 (11:16→18:04)
[2019-11-13] MEDS: ACETAMINOPHEN TAB 650MG DOSE (2X325MG) PO PRN (13:52)
--- NOTE | 2019-11-13 14:19 | IPN ---
DATE: 11/12/2019 SUBJECTIVE: The patient was seen and examined at the bedside today morning in the intensive care unit (ICU). The last 24-hour events were noted. The patient was hypotensive overnight despite aggressive IV fluid hydration. She got a left-sided subclavian line placed and she was started on Levophed infusion. Blood pressures are better now today morning. She started making urine. Her Levophed requirement today morning is just 1 mcg. Renal function started improving and her hyperkalemia has also improved according to today's labs. OBJECTIVE: Vital Signs: Temperature is 98.6 degrees Fahrenheit, blood pressure 119/60, pulse is 71, respiratory rate of 18, saturating 98% on room air. Intake and Output: Urine output recorded is 990 mL since overnight. Weight in the bed scale is 67.6 kg. PHYSICAL EXAMINATION: General: The patient is awake, alert, oriented x3, laying in bed, in no apparent distress. Head and Neck Exam: Extraocular muscles intact. Pupils equally round and reactive to light. Mucous membranes are moist. Neck is supple. There is no jugular venous distention (JVD). Cardiovascular: S1, S2. Regular rate. She has a left-sided subclavian triple-lumen catheter. No edema of the bilateral lower extremities. Respiratory: Chest is clear to auscultation bilaterally. Bilateral equal air entry. No rales or rhonchi. Abdomen: Soft, very mild tenderness to deep palpation in the left lower quadrant and left renal fossa. Very mild left-sided costovertebral angle (CVA) tenderness was noted. Genitourinary: She has an indwelling Renee catheter. Urine in the bag is much more clear today. Musculoskeletal: No clubbing or cyanosis. Pulses are 2+. LABORATORY CLERK: No focal deficit. Power is 5/5 in all extremities. LAB REVIEW: CBC showed a WBC of 7.5, hemoglobin is 10.2, platelets 218. BMP done today morning showed sodium 140, potassium 4.6, chloride 115, bicarb is 15, BUN 57, creatinine is 5, calcium 7.2. C-reactive protein is less than 0.30. Procalcitonin is pending. The a.m. cortisol is 13.2. Microbiology: Blood cultures and urine culture is pending. IMAGING STUDIES: CT scan of the abdomen and pelvis was done yesterday which showed no hydronephrosis or hydroureter. There were bilateral nonobstructing nephroliths. CURRENT INPATIENT MEDICATIONS: The patient's medications were all reviewed by myself. She is currently on Levophed at 1 mcg. She continues to be on Rocephin 2 grams IV every 24. She was given 1 liter of additional normal saline bolus overnight. She is getting half-normal saline plus 75 mEq of bicarbonate at 150 mL an hour. She was also given vancomycin 1 gram IV x1 dose last night. ASSESSMENT/PLAN: 1. Septic shock. The patient's cultures are negative so far. However, the patient was hypotensive overnight requiring Levophed infusion. She is getting IV ceftriaxone for possible left-sided pyelonephritis. Levophed requirement is coming down. The patient is clinically improving today as compared with yesterday. 2. Acute renal failure. The patient is nonoliguric at this time, creatinine is getting better. Continue IV fluid hydration. Management of sepsis is as mentioned above. 3. Normal anion gap metabolic acidosis. The patient is getting bicarb containing IV fluids, bicarb level is improved to 15. Continue IV fluid hydration with bicarbonate. One more liter is going to be given throughout the day today. Further change in the IV fluid will be done after the repeat renal profile in the evening. 4. Hyperkalemia. It was secondary to acute renal failure and metabolic acidosis and use of TIFFANY inhibitor at home. Potassium level is significantly better with improving urine output. Potassium is down to 4.6 today. Total critical care time spent in the management of this patient today morning in the intensive care unit (ICU) is 50 minutes.
--- NOTE | 2019-11-13 14:21 | IPNPDOC ---
Text Note Date of Service The patient was seen on 11/13/19. NOTE Subjective: -Continues to feel well, off pressors since yesterday midmorning, now has been downgraded to PCU status. Was asking for discharge home this morning, cleared by PT. Objective: VITAL SIGNS: Please see below. GENERAL APPEARANCE: Elderly W, NAD, conversational, sitting up in chair HEENT: NCAT, wears corrective lenses, anicteric, non injected, PERRLA, EOMI, MMM NECK: supple, no adenopathy, thyromegaly or JVD RESPIRATORY: Breathing comfortably on room air. Speaking full sentences. CTAB CARDIOVASCULAR: RRR, has a 2/6 systolic murmur RUSB ABDOMEN: Normoactive sounds, soft, no TTP and left CVA tenderness is now a mild discomfort without jenna pain. Right lower quadrant colostomy bag. Brizuela draining clear urine EXTREMITIES: no LE edema, WWP NEUROLOGICAL: Awake, alert and oriented 3. No focal neurologic deficits appreciated. Clear speech PSYCHIATRIC: AOx3 Skin: No lesions or rashes noted LN: No significant cervical or supraclavicular lymphadenopathy appreciated. LABORATORY DATA: WBC 5.6 hgb 9.3 platelets 176 na 146 K 3.5 Cr now 1.16 ASSESSMENT/PLAN: 74 yo W with a history of ulcerative colitis s/p colectomy and proctectomy with colostomy, hypertension, hyperlipidemia, and previous staghorn calculi s/p bilateral percutaneous nephrolithotomy who was admitted for management of septic shock presumed 2/2 left-sided pyelonephritis, DINA, non-anion gap metabolic acidosis, and hyperkalemia. #Septic shock 2/2 to left-sided pyelonephritis: +SIRS with tachycardia and AMS and hypotension resistant to fluid resuscitation, however did not have leukocytosis, lactic acidosis and elevated inflammatory markers. However improved with antibiotics and with evidence of pyelo. -urine had bacteria, positive leukocyte esterase, and large amount of amorphous sediment, with left CVA tenderness. Follow up urine culture -continue ceftriaxone -MAP goal >65, now off pressors -continue ceftriaxone #Acute oliguric renal failure on chronic kidney disease, stage IIIa: resolving -Likely 2/2 dehydration from poor PO -now s/p 3L NS and now on bicarb gtt @ 100cc/hr with improvement Cr and acid base status, as well as urine output now robust -continue to hold lisinopril and avoid nephrotoxic meds -Nephrology on board, appreciate recs #Non-anion gap metabolic acidosis -Possible GI losses but she reports normal stoma output. Also likely contribution from DINA -on bicarb gtt per nephrology, with improvement in NAGMA #Hyperkalemia: 2/2 renal insult, resolved. #Chronic Hypertension. -Holding antihypertensives while hypotensive #History of ulcerative colitis with right-sided colostomy. -Stoma output is at baseline #Hyperlipidemia -continue home atorvastatin. #Depression -Continue home fluoxetine. #GERD -Continue on Prilosec #Sore throat. -Rapid strep negative #History of nephrolithiasis, lithotripsy. -No evidence of obstructive uropathy at this time -brizuela for now -monitor i/o DVT ppx: heparin SQ Q 12H VS,Fishbone, I+O VS, Fishbone, I+O Laboratory Tests 11/13/19 05:20 Vital Signs Date Time Temp Pulse Resp B/P (MAP) Pulse Ox O2 Delivery O2 Flow Rate FiO2 11/13/19 06:00 58 112/54 (73) Room Air 11/13/19 04:00 98.4 17 98 I&O- Last 24 Hours up to 6 AM 11/13/19 06:00 Intake Total 2959.5 ml Output Total 2360 ml Balance 599.5 ml AYAKA BAJWA MD Nov 13, 2019 08:19
[2019-11-13] MEDS: BICITRA 30ML SOLN UDC PO SCH ×2 (16:03→21:04)
[2019-11-14] VITALS (13 sets, daily range): BP systolic 126–201; BP diastolic 62–84
[2019-11-14] MEDS: BICITRA 30ML SOLN UDC PO SCH ×2 (05:48→13:11)
[2019-11-14 05:56] LABS: HEMATOCRIT 29.7 % (36.0-47.0); HEMOGLOBIN 9.6 g/dl (12.0-15.5); MEAN CORPUSCULAR HEMOGLOBIN 29.1 pg (27.0-33.0); MEAN CORPUSCULAR HGB CONC 32.3 g/dl (32.0-36.5); PLATELET COUNT, AUTOMATED 191 10^3/uL (150-450); WHITE BLOOD COUNT 5.5 10^3/uL (4.0-10.0)
[2019-11-14 06:16] LABS: BLOOD UREA NITROGEN 24 MG/DL (7-18); CALCIUM LEVEL 8.1 MG/DL (8.8-10.2); CARBON DIOXIDE LEVEL 27 MEQ/L (21-32); CHLORIDE LEVEL 110 MEQ/L (98-107); CREATININE FOR GFR 0.89 MG/DL (0.55-1.30); GLOMERULAR FILTRATION RATE > 60.0 (>39); GLUCOSE, FASTING 80 MG/DL (70-100); POTASSIUM SERUM 4.6 MEQ/L (3.5-5.1); SODIUM LEVEL 143 MEQ/L (136-145)
[2019-11-14] MEDS: OMEPRAZOLE 20 MG CAP PO SCH (08:05)
[2019-11-14] MEDS: ACETAMINOPHEN TAB 650MG DOSE (2X325MG) PO PRN ×2 (08:05→11:39)
[2019-11-14] MEDS: ATORVASTATIN 10 MG TAB PO SCH (08:05)
[2019-11-14] MEDS: HEPARIN SOD (PORCINE) 5000UNITS/ML VIAL (J1644 PER 1000UNITS) SQ SCH (08:05)
[2019-11-14] MEDS: FLUoxetine 20 MG CAP PO SCH (08:05)
[2019-11-14] MEDS: NYSTATIN 100,000 UNITS/GM TOPICAL PWD 15 GM TOP SCH (08:06)
[2019-11-14] MEDS: NYSTATIN 500,000 U/5 ML SUSP UDC SSP SCH (08:06)
[2019-11-14] MEDS: cefTRIAXone SOD 2 GM in D5W MINI-BAG PLUS 50 ML IV SCH (08:07)
[2019-11-14] MEDS ORDERED: amLODIPine 5 MG TAB PO SCH (09:00)
[2019-11-14] MEDS: CEPHALEXIN 500 MG CAP PO SCH ×2 (09:11→12:25)
[2019-11-14] MEDS ORDERED: hydrALAZINE 20MG/ML 1ML VIAL (J0360 PER 20MG) IV ONE (13:15)
--- NOTE | 2019-11-14 13:42 | IPNPDOC ---
Text Note Date of Service The patient was seen on 11/14/19. NOTE Subjective: -Continues to feel well, no complaints Objective: VITAL SIGNS: Please see below. GENERAL APPEARANCE: Elderly W, NAD, conversational, sitting up in chair HEENT: NCAT, wears corrective lenses, anicteric, non injected, PERRLA, EOMI, MMM NECK: supple, no adenopathy, thyromegaly or JVD RESPIRATORY: Breathing comfortably on room air. Speaking full sentences. CTAB CARDIOVASCULAR: RRR, has a 2/6 systolic murmur RUSB ABDOMEN: Normoactive sounds, soft, no TTP. Right lower quadrant colostomy bag. EXTREMITIES: no LE edema, WWP NEUROLOGICAL: Awake, alert and oriented 3. No focal neurologic deficits appreciated. Clear speech PSYCHIATRIC: AOx3 Skin: No lesions or rashes noted LN: No significant cervical or supraclavicular lymphadenopathy appreciated. LABORATORY DATA: WBC 5.5 hgb 9.6 platelets 176 na 191 K 4.6 Cr now 0.89 HCO3 27 ASSESSMENT/PLAN: 74 yo W with a history of ulcerative colitis s/p colectomy and proctectomy with colostomy, hypertension, hyperlipidemia, and previous staghorn calculi s/p bilateral percutaneous nephrolithotomy who was admitted for management of septic shock presumed 2/2 left-sided pyelonephritis, DINA, non-anion gap metabolic acidosis, and hyperkalemia. #Septic shock 2/2 to left-sided pyelonephritis: +SIRS with tachycardia and AMS and hypotension resistant to fluid resuscitation, however did not have leukocytosis, lactic acidosis and elevated inflammatory markers. However improved with antibiotics and with clinical evidence of pyelo. -urine had bacteria, positive leukocyte esterase, and large amount of amorphous sediment, with left CVA tenderness. Follow up urine culture -switch IV ceftriaxone to PO keflex -MAP goal >65, now off pressors #Acute oliguric renal failure on chronic kidney disease, stage IIIa: resolved -Likely 2/2 dehydration from poor PO -now s/p 3L NS and bicarb gtt resolution of DINA. urine output now robust -continue to hold lisinopril and avoid nephrotoxic meds -Nephrology on board, appreciate recs #Non-anion gap metabolic acidosis -Possible GI losses with elevated stoma output. -On bicitra TID per nephrology #Hyperkalemia: 2/2 renal insult, resolved. #Chronic Hypertension. -Holding antihypertensives given recent shock #History of ulcerative colitis with right-sided colostomy. -Stoma output is at baseline #Hyperlipidemia -continue home atorvastatin. #Depression -Continue home fluoxetine. #GERD -Continue on Prilosec #Sore throat. -Rapid strep negative #History of nephrolithiasis, lithotripsy. -No evidence of obstructive uropathy at this time -monitor i/o DVT ppx: heparin SQ Q 12H VS,Fishbone, I+O VS, Fishbone, I+O Laboratory Tests 11/14/19 05:32 Vital Signs Date Time Temp Pulse Resp B/P (MAP) Pulse Ox O2 Delivery O2 Flow Rate FiO2 11/14/19 04:00 98.3 51 16 148/67 (94) 97 Room Air I&O- Last 24 Hours up to 6 AM 11/14/19 06:00 Intake Total 6160 ml Output Total 1920 ml Balance 4240 ml AYAKA BAJWA MD Nov 14, 2019 08:45
[2019-11-14] MEDS ORDERED: CEPH500C PO (14:44)
[2019-11-14] MEDS ORDERED: AMLO5TAB6 PO (14:44)
--- NOTE | 2019-11-14 14:44 | DS.PDOC ---
Discharge Summary General Date of Admission Nov 11, 2019 at 15:40 Date of Discharge 11/14/2019 Attending Physician: AYAKA BAJWA MD Specialist/Consultants Involve: IVÁN SHEIKH MD Discharge Summary PROCEDURES PERFORMED DURING STAY: None ADMITTING DIAGNOSES: DINA Pyelonephritis DISCHARGE DIAGNOSES: septic shock 2/2 pyelonephritis Acure renal injury Normal anion gap metabolic acidosis Hyperkalemia 2/2 acute renal injury Ulcerative colitis s/p proctectomy and colectomy with right-sided colostomy Hypertension Hyperlipidemia History of bilateral staghorn calculi s/p bilateral percutaneous nephrolithotomy COMPLICATIONS/CHIEF COMPLAINT: Acute Renal Failure. HISTORY OF PRESENT ILLNESS: 74-year-old W with PMHx of ulcerative colitis s/p colectomy and proctectomy with colostomy, hypertension, hyperlipidemia, and previous staghorn calculi s/p bilateral percutaneous nephrolithotomy who presented to the emergency department after being driven in by her daughter c/o lethargy and persistent nausea over four days. Due to her nausea, she's had little po intake and endorsed one episode of nonbloody emesis as well as oliguria. She reported left flank and left lower quadrant abdominal pain and discomfort that acutely started on the day of presentation. She also noted low to normal colostomy output with non- watery stool at that time. She denied any recent fever, chills, night sweats, dysphagia, odynophagia, chest pain, chest pressure, palpitations, shortness of breath or lower extremity edema. HOSPITAL COURSE: In the ED, she was found to be hypotensive with systolic blood pressures in the 70s to 80s, hyperkalemic (K 5.8), with acute renal failure (BUN 72, sCr 9.91, GFR 4.1%), and non-AG metabolic acidosis (POC ABG in the ED showed pH 7.12, pCO2 26.9, HCO3- 8.7). Urinalysis revealed moderate amount of urine bacteria with large amount of amorphous sediment, positive leukocyte esterase, negative urine nitrite, 15-20 uWBC, and 5-7 uRBC. The patient was then administered 3 successive IV normal saline fluid boluses and the nephrology service was consulted for management of acute renal failure with non-anion gap metabolic acidosis and hyperkalemia. Her course was c/b septic shock requiring a subclavian TLC and levophed to achieve a MAP goal of >65. In the meantime she was empirically started on ceftriaxone for UTI/pyelonephritis. By day 2 she was weaned off levophed and renal function improved and ultimately returned to b aseline. She did have persistent acidosis requiring bicarb gtt and bicitra and on day 3 her bicarb was finally normal. Nephrology did note a high stoma output that was likely driving the NAGMA and it eventually improved and she is now being discharged home with 4 more days of keflex for presumed pyelonephritis despite UCx being ultimately negative. Of note, after resolution of the shock, she did have HTN and instead of restarting her lisinopril, we started her on 5mg of amlodipine daily that she is now being discharged on. DISCHARGE MEDICATIONS: Please see below. ALLERGIES: Please see below. PHYSICAL EXAMINATION ON DISCHARGE: VITAL SIGNS: Please see below. GENERAL APPEARANCE: Elderly W, NAD, conversational, sitting up in chair HEENT: NCAT, wears corrective lenses, anicteric, non injected, PERRLA, EOMI, MMM NECK: supple, no adenopathy, thyromegaly or JVD RESPIRATORY: Breathing comfortably on room air. Speaking in full sentences. CTAB CARDIOVASCULAR: RRR, has a 2/6 systolic murmur RUSB ABDOMEN: Normoactive sounds, soft, no TTP and no CVA TTP. Right lower quadrant colostomy bag. EXTREMITIES: no LE edema, WWP NEUROLOGICAL: Awake, alert and oriented 3. No focal neurologic deficits appreciated. Clear speech, normal gait PSYCHIATRIC: AOx3 Skin: No lesions or rashes noted LN: No significant cervical or supraclavicular lymphadenopathy appreciated. LABORATORY DATA: Please see below. IMAGING: CT head: No acute pathology CXR: No acute cardiopulmonary pathology noted CT A/P: There are mild chronic lung base changes, status quo. There are no pleural or pericardial effusions. There is cholelithiasis, status quo. Limited evaluation of the liver and spleen shows no gross abnormalities or significant changes from the prior exam. Limited evaluation of the pancreas and adrenal glands shows no gross abnormalities or significant changes from the prior exam. Once again, there are bilateral nonobstructing nephroliths. There is no hydronephrosis or hydroureter. There are no ureteroliths. There is a Renee balloon catheter in the urinary bladder, decompressing it. There is a trace amount of free pelvic fluid. There is no free fluid or free air in the abdomen. Limited evaluation of the bowel loops and their mesenteries shows no gross abnormalities. Limited evaluation of the abdominal aorta and para-aortic regions shows no gross abnormalities. There is an unchanged right lower quadrant ileostomy. The patient is status post colectomy. PROGNOSIS: Good ACTIVITY: As tolerated DIET: Regular DISCHARGE PLAN: Home with 4 days of keflex DISPOSITION: home DISCHARGE INSTRUCTIONS: 1. Home with 4 days of keflex. PCP follow up within 1 week ITEMS TO FOLLOWUP ON ON OUTPATIENT: 1. Pyelonphritis 2. Recent renal failure DISCHARGE CONDITION: Stable TIME SPENT ON DISCHARGE: 45 minutes. Vital Signs/I&Os Vital Signs Date Time Temp Pulse Resp B/P (MAP) Pulse Ox O2 Delivery O2 Flow Rate FiO2 11/14/19 04:00 98.3 51 16 148/67 (94) 97 Room Air I&O- Last 24 Hours up to 6 AM 11/14/19 06:00 Intake Total 6160 ml Output Total 1920 ml Balance 4240 ml Laboratory Data Labs 24H Laboratory Tests 2 11/14/19 05:32: Nucleated Red Blood Cells % (auto) 0.0, Anion Gap 6L, Glomerular Filtration Rate > 60.0, Calcium Level 8.1#L CBC/BMP Laboratory Tests 11/14/19 05:32 Microbiology Microbiology 11/12/19 Group A Streptococcus Screen (RANDI) - Final, Resulted 11/12/19 Group A Streptococcus Screen (RANDI), Resulted Pending 11/12/19 Blood Culture - Preliminary, Resulted No Growth after 48 hours. All Specime... 11/11/19 Urine Culture - Final, Complete Discharge Medications Scheduled Atorvastatin Calcium (Atorvastatin Calcium) 10 Mg Tablet, 10 MG PO DAILY, (Reported) Fluoxetine HCl (Prozac) 40 Mg Cap, 40 MG PO DAILY, (Reported) Lisinopril (Lisinopril) 10 Mg Tablet, 10 MG PO DAILY, (Reported) Omeprazole (Omeprazole) 20 Mg Capsule.dr, 20 MG PO DAILY, (Reported) Scheduled PRN Acetaminophen (Acetaminophen) 500 Mg Tab, 500 MG PO Q6H PRN for PAIN, (Reported) Allergies Coded Allergies: No Known Allergies (Unverified , 08/12/18) AYAKA BAJWA MD Nov 14, 2019 08:41
--- NOTE | 2019-11-14 15:10 | IPN ---
DATE: 11/13/2019 SUBJECTIVE: The patient was seen and examined the bedside today morning in the ICU. She is afebrile, hemodynamically stable. Renal function continues to improve. Creatinine is improving. However, today she has hypernatremia and she has mild persistent metabolic acidosis which is slowly improving. OBJECTIVE: Vital signs: Temperature is 98.3 degrees Fahrenheit, blood pressure 137/65, pulse is 59, respiratory rate of 20, saturating 95% on room air. Intake and output: Urine output recorded is 2 liters yesterday, 1.3 liters so far today since overnight. Weight in the bed scale is 69 kg. PHYSICAL EXAMINATION: General: The patient is awake, alert, oriented times three, laying in bed in no apparent distress. Head and neck exam: Extraocular muscles intact. Pupils equally round and reactive to light. Mucous membranes are moist. Neck is supple. She has a left subclavian triple-lumen catheter. Cardiovascular: S1, S2, regular rate. No edema of the bilateral lower extremities. Respiratory: Chest is clear to auscultation bilaterally. Bilateral equal air entry. No rales or rhonchi. Abdomen: Soft. She has a right lower quadrant colostomy and green colored liquid is found in the colostomy bag. Genitourinary: Bladder is not palpable. Musculoskeletal: No clubbing or cyanosis. Pulses are 2+. STOKER MECHANIC: No focal deficit. Power is 5/5 in all extremities. LABORATORY REVIEW: CBC showed a WBC of 5.6, hemoglobin 9.3, platelets are 176. BMP showed sodium 146, potassium 3.5, chloride 119, bicarbonate is 18, BUN 36, creatinine is 1.1, calcium was 6.5. Microbiology: Blood culture and urine cultures are negative so far. CURRENT INPATIENT MEDICATIONS: The patient's medications were all reviewed by myself. She continues to be on IV Rocephin. She will get the third dose tomorrow and then it will be stopped. I ordered one dose of calcium gluconate 1 gram IV today morning. I have changed her IV fluid to KCl 20 mEq in D5W at 150 mL/hour for a total of 2 liters. IV bicarbonate containing fluids have been stopped. She was also started on Bicitra 30 mL by mouth every 8 hours for a total of 2 days. ASSESSMENT/PLAN: 1. Acute renal failure. Patient's renal function is significantly better with aggressive IV fluid hydration and antibiotics. All the cultures are negative. However, clinically on initial exam it looked like the patient had left-sided pyelonephritis. IV fluids have been changed as mentioned above. 2. Normal anion gap metabolic acidosis. It is secondary to colostomy status and acute renal failure. IV bicarbonate has been stopped. She has been started on oral Bicitra now. 3. Hyperkalemia. The patient's has a potassium of 3.5 and I suspect that she will become hypokalemic by tomorrow morning. I have added potassium to the IV fluids. 4. Hypocalcemia. The patient got calcium gluconate 1 gram IV today morning. 5. Urinary tract infection. The patient has bilateral intrarenal calculi. She had clinical evidence of left-sided pyelonephritis. She is empirically being covered with ceftriaxone. All the cultures are negative so far. CRP and procalcitonin is negative. I would stop the antibiotics after her dose of ceftriaxone tomorrow. DISPOSITION: The patient still has electrolyte abnormality along with metabolic acidosis. She is not stable enough to be discharged home. I am hopeful that over the next 24-48 hours she should be able to go home once her electrolytes are better.
--- NOTE | 2019-11-14 17:57 | ECHO ---
DATE OF PROCEDURE: 11/13/2019 DATE OF : 1945 ROOM NUMBER: [id number] REFERRING PROVIDER: Dr. Deepak Varela REASON FOR THE TESTING: Sepsis. 2D MEASUREMENTS: IVS: 1.2 cm LV: 3.8 cm LVPW: 1.2 cm LA: 3.0 cm Aorta: 2.8 cm IVC: 2.3 cm DOPPLER MEASUREMENTS: Peak velocity across the aortic valve: 1.4 meters per second Peak velocity across the LVOT: 1.0 meters per second Mitral E: 0.7, Mitral A: 0.8 with a ratio of 0.9 Maximum tricuspid valve velocity: 2.9 meters per second 2D COMMENTS: 1. Normal left ventricular size, wall thickness, and normal global left ventricular systolic function. The estimated left ventricular systolic ejection fraction is 60-65%. 2. Normal left atrium. Normal right atrium and right ventricle. 3. The atrial septum appeared to be normal without evidence of defect or shunt. 4. Normal aortic root. 5. No pericardial effusion seen. 6. Minimally calcified aortic valve with normal leaflet excursion. Mildly calcified mitral annulus with normal anterior mitral valve leaflet motion. Normal tricuspid valve and pulmonic valve. The proximal pulmonary artery branches were not well visualized. 7. The inferior vena cava was mildly enlarged, central venous pressure might be elevated. DOPPLER: It detects mild mitral regurgitation, mild tricuspid regurgitation. The calculated pulmonary artery systolic pressure varies between 30-40 mmHg. Abnormal relaxation pattern was noted across the mitral valve leaflets as well as the mitral valve annulus consistent with features of grade 1 left ventricular diastolic dysfunction. IMPRESSION: 1. Normal global left ventricular systolic function. There are some features of left ventricular diastolic dysfunction manifested by abnormal relaxation. 2. Aortic valve sclerosis without stenosis or aortic regurgitation. 3. Mitral annulus calcification with mild mitral regurgitation. 4. Mild tricuspid regurgitation with mild pulmonary hypertension. 5. There are some features of elevated central venous pressure, the inferior vena cava was mildly enlarged. 6. No vegetations noted in this transthoracic echocardiogram.
--- NOTE | 2019-11-15 14:05 | IPN ---
DATE OF SERVICE: 11/14/2019 SUBJECTIVE: Patient was seen and examined at bedside today morning. Patient is much more improved today as compared with yesterday. Her renal function is significantly better. Renee catheter was removed yesterday. Patient denies any ostomy diarrhea. Her blood pressures were elevated today morning, and she is complaining of headache when I saw her. OBJECTIVE: Vital Signs: Temperature is 98.2 degrees Fahrenheit. Blood pressure was 171/74. Pulse is 65, respiratory of 18, saturating 94% on room air. Intake/Output: Urine output recorded 1.3 liters yesterday, 1.6 liters so far today since overnight. Weight in the bed scale is 69.5 kg. PHYSICAL EXAMINATION General: Patient is awake, alert, oriented times three, laying in bed, in no apparent distress. Head/Neck Exam: Extraocular is intact. Pupils equally round and reactive to light. Mucous membranes are moist. Neck is supple. There is no jugular venous distention (JVD). Cardiovascular: S1,2, regular rate. No edema of the bilateral extremities. Respiratory: Chest is clear to auscultation bilaterally. Bilateral equal air entry. No rales or rhonchi. Abdomen: Soft, positive bowel sounds. Right lower quadrant colostomy bag is noted with about 300 mL of liquid stool. Musculoskeletal: No clubbing or cyanosis. Pulses are 2+. No edema of the bilateral lower extremities. Central Nervous System (MALT LOADER): No focal deficit. Power is 5/5 in all extremities. LAB REVIEW: Complete blood count (CBC) showed WBC of 5.5, hemoglobin 9.6, platelets of 191. Basic metabolic panel (BMP) showed sodium 143, potassium 4.6, chloride 110, bicarbonate 27, BUN 24, creatinine 0.89, calcium is 8.1. CURRENT INPATIENT MEDICATION: Patient's medications were all reviewed by myself. She got the last dose of ceftriaxone today morning. I gave the patient a dose of amlodipine 5 mg by mouth daily. She was started on Keflex 500 mg four times a day starting today morning. The patient also was given a dose of hydralazine 10 mg IV in the afternoon because of elevated blood pressures. ASSESSMENT/PLAN: 1. Acute renal failure. Renal function has improved with IV fluid hydration and stopping the TIFFANY inhibitor. Creatinine is down to 0.89 today. Avoid further use of TIFFANY inhibitors on discharge. 2. Hypertension. Patient was hypertensive today requiring amlodipine and hydralazine. She will be discharged on amlodipine 5 mg daily. Further adjustment of antihypertensive regimen will be done as outpatient. 3. Metabolic acidosis. It has resolved with the addition of Bicitra. Bicarbonate level is 27. Patient will be discharged without any Bicitra or sodium bicarbonate, and she will be followed up as outpatient and bicarbonate level drops again she will be started on daily bicarbonate supplement supplementation. DISPOSITION: It is okay to discharge the patient from nephrology standpoint. She will need to followup with nephrology within 1 week after discharge from the hospital.
--- NOTE | 2019-11-17 22:43 | RO ---
DATE OF PROCEDURE: 11/11/2019 PREPROCEDURE DIAGNOSIS: Hypotension, need for central access. POSTPROCEDURE DIAGNOSIS: Hypotension, need for central access. PROCEDURE: Insertion of left subclavian central line. SURGEON: Gavin Gavin MD STEEL WHEEL ENGRAVER: ANESTHESIA: DESCRIPTION OF PROCEDURE: The patient's infraclavicular fossa on the left side was prepped and draped in the usual sterile fashion. It was infiltrated with 1% lidocaine. The subclavian vein was found on the second pass. Wire was placed without difficulty. Tract was dilated, and the triple lumen catheter was placed. Ports were aspirated and flushed, and the catheter was secured to the chest wall with two #2-0 silk sutures. The patient tolerated the procedure well and a chest x-ray is pending.
== END 2019-11-14 15:27 | disposition home health service (06) | DRG 871 ==
LOC: M ED 12:47 → M ED INP 15:40 → ENRESERV 19:10 → M ICU 20:10
PROVIDERS: ADMIT General Practice; ATTEND Internal Medicine
DX: A41.9 Sepsis, unspecified organism (principal); R65.21 Severe sepsis with septic shock; N17.9 Acute kidney failure, unspecified; E87.2 Acidosis; E87.1 Hypo-osmolality and hyponatremia; K51.90 Ulcerative colitis, unspecified, without complications; N10 Acute pyelonephritis; N18.3 Chronic kidney disease, stage 3 (moderate); E87.5 Hyperkalemia; E78.5 Hyperlipidemia, unspecified; I12.9 Hypertensive chronic kidney disease with stage 1 through stage 4 chronic kidney disease, or unspecified chronic kidney disease; J02.9 Acute pharyngitis, unspecified; K21.9 Gastro-esophageal reflux disease without esophagitis; F32.9 Major depressive disorder, single episode, unspecified; N20.0 Calculus of kidney; Z96.0 Presence of urogenital implants; Z79.899 Other long term (current) drug therapy; Z93.2 Ileostomy status

== ENCOUNTER 2019-11-25 15:19 | Inpatient (IN) | payer MEDICARE ==
[~2019-11-25] VITALS: Ht 154.9 cm; Wt 62.9 kg
[~2019-11-25 15:19] MED LIST changes: +AMLO1TAB24 PO; +ATOR1TAB19 PO; +CEPH500C PO; +LISI10TA4 PO; +OMEP-218 PO; +PANT40TA29 PO; -PANT40TA3 PO
[2019-11-25] MEDS ORDERED: ALLO100T PO (15:28)
[2019-11-25] MEDS ORDERED: LISI10TA4 PO (15:28)
[2019-11-25] MEDS ORDERED: NS 1,000 ML IV ONE (16:45)
[2019-11-25] MEDS ORDERED: MORPHINE 2 MG/ML 1ML VIAL (J2270) IV ONE (16:45)
[2019-11-25] MEDS ORDERED: ONDANSETRON 4MG/2ML VIAL IV ONE (16:45)
[2019-11-25 16:51] LABS: VENOUS BASE EXCESS -11.4 (-2.0-2.0); VENOUS HCO3 16.4 MEQ/L (23.0-27.0); VENOUS O2 SATURATION 83.7 % (60.0-80.0); VENOUS PARTIAL PRESSURE CO2 43.9 mmHg (38.0-50.0); VENOUS PARTIAL PRESSURE O2 53.3 mmHg (30.0-50.0); VENOUS STANDARD HCO3 15.3 MEQ/L; VENOUS TOTAL CO2 17.7 MEQ/L (24.0-28.0)
[2019-11-25 16:59] LABS: BASO # 0.1 10^3/uL (0.0-0.2); BASO % 0.8 % (0.0-1.0); EOS # 0.3 10^3/uL (0.0-0.5); EOS % 4.3 % (0.0-3.0); HEMATOCRIT 39.4 % (36.0-47.0); HEMOGLOBIN 12.5 g/dl (12.0-15.5); LYMPH # 2.3 10^3/uL (1.5-5.0); LYMPH % 29.3 % (24.0-44.0); MEAN CORPUSCULAR HEMOGLOBIN 29.3 pg (27.0-33.0); MEAN CORPUSCULAR HGB CONC 31.7 g/dl (32.0-36.5); MEAN CORPUSCULAR VOLUME 92.3 fl (80.0-96.0); MONO # 0.7 10^3/uL (0.0-0.8); MONO % 8.4 % (0.0-5.0); NEUTROPHILS # 4.5 10^3/uL (1.5-8.5); NEUTROPHILS % 56.9 % (36.0-66.0); PLATELET COUNT, AUTOMATED 298 10^3/uL (150-450); RED BLOOD COUNT 4.27 10^6/uL (4.00-5.40); WHITE BLOOD COUNT 7.9 10^3/uL (4.0-10.0)
[2019-11-25 17:16] LABS: INR 1.13; PROTHROMBIN TIME 14.2 SECONDS (11.8-14.0)
[2019-11-25 17:17] LABS: PARTIAL THROMBOPLASTIN TIME 31.3 SECONDS (25.0-38.4)
[2019-11-25 17:44] LABS: ALBUMIN 4.2 GM/DL (3.2-5.2); ALT/SGPT 18 U/L (12-78); BILIRUBIN,DIRECT 0.1 MG/DL (0.0-0.2); BILIRUBIN,TOTAL 0.4 MG/DL (0.2-1.0); BLOOD UREA NITROGEN 57 MG/DL (7-18); CALCIUM LEVEL 9.1 MG/DL (8.8-10.2); CARBON DIOXIDE LEVEL 18 MEQ/L (21-32); CHLORIDE LEVEL 105 MEQ/L (98-107); CPK CREATINE PHOSPHOKINASE 64 U/L (26-192); FREE T4 1.03 NG/DL (0.76-1.46); GLOMERULAR FILTRATION RATE 11.7 (>39); GLUCOSE, FASTING 103 MG/DL (70-100); LIPASE 328 U/L (73-393); MB/CK RELATIVE INDEX 1.56 (< OR =4); POTASSIUM SERUM 6.2 MEQ/L (3.5-5.1); SODIUM LEVEL 133 MEQ/L (136-145); THYROID STIMULATING HORMONE 0.813 uIU/ML (0.358-3.740); TROPONIN I < 0.02 NG/ML (< 0.10)
--- NOTE | 2019-11-25 18:44 | REPVR ---
PROCEDURE INFORMATION: Exam: CT Abdomen And Pelvis Without Contrast Exam date and time: 11/25/2019 6:13 PM Age: 74 years old Clinical indication: Abdominal pain; Additional info: Abd pain TECHNIQUE: Imaging protocol: Computed tomography of the abdomen and pelvis without contrast. Radiation optimization: All CT scans at this facility use at least one of these dose optimization techniques: automated exposure control; mA and/or kV adjustment per patient size (includes targeted exams where dose is matched to clinical indication); or iterative reconstruction. COMPARISON: CT ABD PELVIS W/O CONTRAST 11/11/2019 3:27 PM FINDINGS: Lungs: No suspicious mass or airspace process in the visualized lung bases. Liver: Noncontrast liver shows no obvious lesion. Gallbladder and bile ducts: Gallstones are present in the gallbladder lumen. No adjacent fluid or duct dilatation. Pancreas: Noncontrast pancreas shows no obvious mass or adjacent fluid. Spleen: Noncontrast spleen shows no obvious focal deformity. Adrenals: Adrenal glands are normal in appearance. Kidneys and ureters: Kidneys demonstrate bilateral nonobstructive calculi. No hydronephrosis or ureter stone. Stomach and bowel: No evidence of small bowel obstruction. Right lower quadrant ileostomy is present without obstruction. No abnormal fluid collection. Colectomy changes are present. Intraperitoneal space: No pneumoperitoneum. Vasculature: Atherosclerotic change present in the aorta, without aneurysm. Lymph nodes: No enlarged lymph nodes. Bladder: Urinary bladder appears normal. Reproductive: Stable pre rectal soft tissue which may be related to the uterus. Bones/joints: Bony structures are normal except for lumbar spine degenerative disc changes. Other findings: Limited evaluation without enteric or IV contrast. IMPRESSION: 1. Bilateral nonobstructive nephrolithiasis. 2. Cholelithiasis without biliary obstruction 3. The no bowel obstruction or obstructive change involving the ileostomy. 4. Stable presacral soft tissue which may represent retroverted uterus. Electronically signed by: Brooks Muniz On 11/25/2019 18:44:21 PM
[2019-11-25] MEDS ORDERED: SOD POLYSTYRENE SULFONATE SUSP 15 GM/60 ML UD PO ONE (20:00)
[2019-11-25] MEDS ORDERED: AMLO1TAB24 PO (20:24)
[2019-11-25] MEDS ORDERED: ACETAMINOPHEN TAB 650MG DOSE (2X325MG) PO PRN (20:45)
--- NOTE | 2019-11-25 21:02 | HPEPDOC ---
[facility] Medical History & Physical Date of Admission Nov 25, 2019 Date of Service: Nov 25, 2019 History and Physical CHIEF COMPLAINT: Weakness HISTORY OF PRESENT ILLNESS: Patient is a 72-year-old female with history of hypertension, depression, hyperlipidemia, ulcerative colitis who presents with 2 days of progressive weakness. Patient was recently discharged on the 10th of this month after being treated for acute renal failure with creatinine to peak of 9. Patient's creatinine normalized on discharge. Since coming home. Patient says she followed with marketing executive with plan to do 24-hour urine study, which is not been completed yet. Patient states that 2 days prior to admission she found her soft. Unable to tolerate by mouth intake with progressive weakness. Patient also notes decreased urine output. Patient says the symptoms continued and the weakness continued to get worse. On day of admission patient son took her blood pressure which read 92/42. Given a low blood pressure patient presented to the emergency room for further evaluation and treatment. Patient endorses abdominal pain, nausea, decreased short output and weakness but denies other symptoms of fever, chills, cough, sore throat, chest pain, s hortness of breath, vomiting, dysuria, diarrhea, leg pain or leg swelling. Of note: She states that she is trying to eat food, but when he gets normal mouth. She gets extremely nauseous and is unable to swallow. PAST MEDICAL HISTORY: 1. Hypertension. 2. Depression. 3. Hyperlipidemia. 4. Ulcerative colitis. PAST SURGICAL HISTORY: 1. Lithotripsy. 2. Colectomy with colostomy. SOCIAL HISTORY: Resides in: Lives with son and [id number] Tobacco use: Former smoker ETOH: Denies Illicit drug use: Denies FAMILY HISTORY: Cancer, hypertension ALLERGIES: Please see below. REVIEW OF SYSTEMS: 14 point ROS reviewed and pertinent positives and negatives documented as per HPI. All other reviewed ROS negative HOME MEDICATIONS: Please see below. PHYSICAL EXAMINATION: VITAL SIGNS: See below GENERAL APPEARANCE:. Well-developed, well-nourished female, laying in stretcher, pleasant on interview. HEENT: PERRLA, EOMI, OP clear, dry mucous membranes. CARDIOVASCULAR: RRR, normal S1, S2, + murmur, no RG. LUNGS: CTA B/L, no W/R/R. ABDOMEN: Soft, nontender, nondistended, colostomy bag in place, midline scar. EXTREMITIES:. Intact distal pulses, no edema. NEUROLOGICAL: Normal speech, strength appears to be intact, no focal deficits appreciated PSYCHIATRIC: AAO 3, normal mood LABORATORY DATA: See below. IMAGING: CT abdomen/pelvis (personally reviewed): 1. Bilateral nonobstructive nephrolithiasis. 2. Cholelithiasis without biliary obstruction 3. The no bowel obstruction or obstructive change involving the ileostomy. 4. Stable presacral soft tissue which may represent retroverted uterus. MICROBIOLOGY: Please see below. ASSESSMENT: Patient is a 72-year-old female with history of hypertension, depression, hyperlipidemia, ulcerative colitis who presents with 2 days of progressive weakness with associated poor by mouth intake found to have acute renal failure with creatinine 4. His similar to her prior presentation and likely due to prerenal etiology. We will hydrate patient and trend creatinine. . PLAN: #Acute renal failure likely secondary to prerenal etiology Admit to observation. Intravenous fluids. Trend creatinine. Zofran for nausea #Hyperkalemia Specimen slightly hemolyzed. Kayexalate Trend potassium No peaked T waves on EKG #Relative hypotension Likely in the setting of dehydration and poor by mouth intake. Trend BP Hold home hypertensive medications. Patient currently asymptomatic #Depression. Continue home meds #Hyperlipidemia. Continue home meds #History of Ulcerative colitis Patient status post colectomy. Continue to monitor Vital Signs Vital Signs Date Time Temp Pulse Resp B/P (MAP) Pulse Ox O2 Delivery O2 Flow Rate FiO2 11/25/19 19:19 96.7 66 16 112/55 (74) 98 Room Air Laboratory Data Labs 24H Laboratory Tests 2 11/25/19 16:34: Prothrombin Time 14.2H, Prothromb Time International Ratio 1.13, Activated Partial Thromboplast Time 31.3, Anion Gap 10, Glomerular Filtration Rate 11.7L, Calcium Level 9.1, Total Bilirubin 0.4, Direct Bilirubin 0.1, Aspartate Amino Transf (AST/SGOT) 19, Alanine Aminotransferase (ALT/SGPT) 18, Alkaline Phosphatase 98, Total Creatine Kinase 64, Creatine Kinase MB 1.0, Creatine Kinase MB Relative Index 1.56, Troponin I < 0.02, Total Protein 8.0, Albumin 4.2, Albumin/Globulin Ratio 1.1L, Lipase 328, Thyroid Stimulating Hormone (TSH) 0.813, Free Thyroxine 1.03 11/25/19 16:42: Immature Granulocyte % (Auto) 0.3, Neutrophils (%) (Auto) 56.9, Lymphocytes (%) (Auto) 29.3, Monocytes (%) (Auto) 8.4H, Eosinophils (%) (Auto) 4.3H, Basophils (%) (Auto) 0.8, Neutrophils # (Auto) 4.5, Lymphocytes # (Auto) 2.3, Monocytes # (Auto) 0.7, Eosinophils # (Auto) 0.3, Basophils # (Auto) 0.1, Nucleated Red Blood Cells % (auto) 0.0, Blood Gas Bicarbonate Standard 15.3, Venous Blood pH 7.190L, Venous Blood Partial Pressure CO2 43.9, Venous Blood Partial Pressure O2 53.3H, Venous Blood Total Carbon Dioxide 17.7L, Venous Blood HCO3 16.4L, Venous Blood Oxygen Saturation 83.7H, Venous Blood Base Excess -11.4L 11/25/19 16:57: Lactic Acid Level 1.0 11/25/19 20:35: CBC/BMP Laboratory Tests 11/25/19 16:34 11/25/19 16:42 Home Medications Scheduled Allopurinol (Allopurinol) 100 Mg Tablet, 100 MG PO DAILY Amlodipine Besylate (Amlodipine Besylate) 5 Mg Tablet, 5 MG PO DAILY Atorvastatin Calcium (Atorvastatin Calcium) 10 Mg Tablet, 10 MG PO DAILY Fluoxetine HCl (Prozac) 40 Mg Cap, 40 MG PO DAILY Lisinopril (Lisinopril) 10 Mg Tablet, 10 MG PO DAILY Omeprazole (Omeprazole) 20 Mg Capsule.dr, 20 MG PO DAILY Scheduled PRN Acetaminophen (Acetaminophen) 500 Mg Tab, 500 MG PO Q6H PRN for PAIN Allergies Coded Allergies: No Known Allergies (Unverified , 08/12/18) A-FIB/CHADSVASC A-FIB History Current/History of A-Fib/PAF?: No ANTONIO HOWE MD Nov 25, 2019 21:02
[2019-11-25] MEDS ORDERED: ONDANSETRON 4MG/2ML VIAL IV PRN (21:45)
[2019-11-25 22:08] VITALS: BP 121/60
[2019-11-25] MEDS: HEPARIN SOD (PORCINE) 5000UNITS/ML 1ML VIAL/SYRINGE SC SCH (22:22)
[2019-11-26] MEDS: NS 1,000 ML IV SCH ×3 (01:46→17:30)
[2019-11-26 06:00] VITALS: BP 90/40
[2019-11-26 07:09] LABS: CALCIUM LEVEL 8.5 MG/DL (8.8-10.2); CREATININE FOR GFR 3.46 MG/DL (0.55-1.30); GLOMERULAR FILTRATION RATE 13.9 (>39); POTASSIUM SERUM 5.8 MEQ/L (3.5-5.1)
[2019-11-26] MEDS: HEPARIN SOD (PORCINE) 5000UNITS/ML 1ML VIAL/SYRINGE SC SCH ×2 (09:25→20:00)
--- NOTE | 2019-11-26 10:42 | ECGEPIP ---
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
[2019-11-26 14:00] VITALS: BP 97/43
--- NOTE | 2019-11-26 19:44 | IPNPDOC ---
Date Seen The patient was seen on 11/26/19. Progress Note SUBJECTIVE: Patient seen and examined at bedside. Patient doing well with no complaints. Denies any fever, chills, chest pain, difficulty breathing, nausea, vomiting, abdominal pain, dysuria, diarrhea, leg pain or swelling. Patient creatinine slowly improving on fluids. OBJECTIVE PHYSICAL EXAMINATION: VITAL SIGNS: Please see below. GENERAL APPEARANCE:. Laying in bed in no acute distress, pleasant on interview. CARDIOVASCULAR: RRR, normal S1, S2, + murmur, no RG. LUNGS: CTA B/L, no W/R/R. ABDOMEN: Soft, nontender, nondistended, colostomy bag in place, midline scar. EXTREMITIES:. Intact distal pulses, no edema. NEUROLOGICAL: Normal speech, strength appears to be intact, no focal deficits appreciated PSYCHIATRIC: AAO3, normal mood LABORATORY DATA, IMAGING STUDIES, MICROBIOLOGY: Please see below. DVT prophylaxis ordered?: Heparin ASSESSMENT AND PLAN: Patient is a 72-year-old female with history of hypertension, depression, hyperlipidemia, ulcerative colitis who presents with 2 days of progressive weakness with associated poor by mouth intake found to have acute renal failure with creatinine 4. This is similar to her prior presentation and likely due to prerenal etiology. We will hydrate patient and trend creatinine. Cr is slowly improving on fluids will therefore continue current treatment and cont. to monitor. . PLAN: #Acute renal failure likely secondary to prerenal etiology Admit to observation. Cont. intravenous fluids. Trend creatinine, mildly improved today Zofran for nausea #Hyperkalemia remains slightly hyperkalemic Kayexalate Trend potassium No peaked T waves on EKG #Relative hypotension Likely in the setting of dehydration and poor by mouth intake. Trend BP Hold home hypertensive medications. Patient currently asymptomatic #Depression. Continue home meds #Hyperlipidemia. Continue home meds #History of Ulcerative colitis Patient status post colectomy. Continue to monitor VS, I&O, 24H, Fishbone Vital Signs/I&O Vital Signs Date Time Temp Pulse Resp B/P (MAP) Pulse Ox O2 Delivery O2 Flow Rate FiO2 11/26/19 14:00 98.2 63 18 97/43 (61) 96 Room Air I&O- Last 24 Hours up to 6 AM 11/26/19 06:00 Intake Total 920 ml Output Total 125 ml Balance 795 ml Laboratory Data 24H LABS Laboratory Tests 2 11/25/19 20:35: Urine Color YELLOW, Urine Appearance HAZY, Urine pH 5.0, Urine Specific [place] 1.006, Urine Protein NEGATIVE, Urine Glucose (UA) NEGATIVE, Urine Ketones NEGATIVE, Urine Blood NEGATIVE, Urine Nitrite NEGATIVE, Urine Bilirubin NEGATIVE, Urine Urobilinogen 0.2, Urine Leukocyte Esterase TRACEH, Urine WBC (Auto) 6H, Urine RBC (Auto) 2, Urine Hyaline Casts (Auto) 6, Urine Bacteria (Auto) 1+H, Urine Squamous Epithelial Cells 0, Urine Mucus (Auto) SMALL, Urine Sperm (Auto) 11/26/19 06:24: Anion Gap 8, Glomerular Filtration Rate 13.9L, Calcium Level 8.5L CBC/BMP Laboratory Tests 11/26/19 06:24 Microbiology Microbiology 11/25/19 Urine Culture, Received Pending ANTONIO HOWE MD Nov 26, 2019 19:44
[2019-11-26 22:00] VITALS: BP 100/52
[2019-11-27] MEDS: NS 1,000 ML IV SCH ×2 (01:48→09:43)
[2019-11-27 06:00] VITALS: BP 110/58
[2019-11-27 06:28] LABS: CALCIUM LEVEL 8.3 MG/DL (8.8-10.2); CREATININE FOR GFR 1.47 MG/DL (0.55-1.30); GLOMERULAR FILTRATION RATE 37.2 (>39); POTASSIUM SERUM 5.5 MEQ/L (3.5-5.1)
[2019-11-27] MEDS: HEPARIN SOD (PORCINE) 5000UNITS/ML 1ML VIAL/SYRINGE SC SCH (09:44)
== END 2019-11-28 12:43 | disposition home or self-care (01) | DRG 684 ==
LOC: M ED 15:19 → M ED INP 15:20 → ENRESERV 21:43 → M MSPAV 22:07 → OBSVTOIN 11-27 10:06 → M MSPAV 11-27 12:30
PROVIDERS: ADMIT Internal Medicine; ATTEND Internal Medicine
DX: N17.9 Acute kidney failure, unspecified (principal); I10 Essential (primary) hypertension; F32.9 Major depressive disorder, single episode, unspecified; E87.5 Hyperkalemia; E78.5 Hyperlipidemia, unspecified; E86.0 Dehydration; I95.9 Hypotension, unspecified; Z90.49 Acquired absence of other specified parts of digestive tract; Z93.3 Colostomy status

== ENCOUNTER 2019-12-25 20:03 | Inpatient (IN) | payer MEDICARE ==
[~2019-12-25] VITALS: Ht 162.6 cm; Wt 66.0 kg
[~2019-12-25 20:03] MED LIST changes: +ALLO100T PO
[2019-12-25] MEDS ORDERED: NOREPINEPHRINE 4 MG/4 ML AMP As Ordered ONE (20:13)
[2019-12-25 21:14] LABS: BASO % 0.4 % (0.0-1.0); HEMATOCRIT 33.8 % (36.0-47.0); HEMOGLOBIN 10.4 g/dl (12.0-15.5); LYMPH # 1.5 10^3/uL (1.5-5.0); LYMPH % 16.9 % (24.0-44.0); MEAN CORPUSCULAR HEMOGLOBIN 30.1 pg (27.0-33.0); MEAN CORPUSCULAR HGB CONC 30.8 g/dl (32.0-36.5); MONO # 0.5 10^3/uL (0.0-0.8); MONO % 5.5 % (0.0-5.0); NEUTROPHILS # 6.4 10^3/uL (1.5-8.5); PLATELET COUNT, AUTOMATED 230 10^3/uL (150-450); RED BLOOD COUNT 3.45 10^6/uL (4.00-5.40); WHITE BLOOD COUNT 8.6 10^3/uL (4.0-10.0)
[2019-12-25 21:27] LABS: VENOUS BASE EXCESS -22.7 (-2.0-2.0); VENOUS HCO3 8.2 MEQ/L (23.0-27.0); VENOUS O2 SATURATION 77.4 % (60.0-80.0); VENOUS PARTIAL PRESSURE CO2 36.9 mmHg (38.0-50.0); VENOUS PARTIAL PRESSURE O2 47.1 mmHg (30.0-50.0); VENOUS PH 6.967 UNITS (7.330-7.430); VENOUS TOTAL CO2 9.4 MEQ/L (24.0-28.0)
[2019-12-25 21:28] LABS: VENOUS STANDARD HCO3 7.9 MEQ/L
[2019-12-25 21:30] LABS: ALBUMIN 3.1 GM/DL (3.2-5.2); ALT/SGPT 10 U/L (12-78); BILIRUBIN,DIRECT 0.1 MG/DL (0.0-0.2); BILIRUBIN,TOTAL 0.3 MG/DL (0.2-1.0); BLOOD UREA NITROGEN 95 MG/DL (7-18); CALCIUM LEVEL 7.5 MG/DL (8.8-10.2); CARBON DIOXIDE LEVEL 10 MEQ/L (21-32); CHLORIDE LEVEL 111 MEQ/L (98-107); CK-MB VALUE MASS 2.2 NG/ML (<3.6); CPK CREATINE PHOSPHOKINASE 76 U/L (26-192); GLOMERULAR FILTRATION RATE 3.7 (>39); GLUCOSE, FASTING 105 MG/DL (70-100); LIPASE 1299 U/L (73-393); MB/CK RELATIVE INDEX 2.89 (< OR =4); POTASSIUM SERUM 6.5 MEQ/L (3.5-5.1); SODIUM LEVEL 135 MEQ/L (136-145); TOTAL PROTEIN 6.2 GM/DL (6.4-8.2); TROPONIN I < 0.02 NG/ML (< 0.10)
[2019-12-25] MEDS ORDERED: NS 1,000 ML IV ONE (21:30)
[2019-12-25] MEDS ORDERED: SOD POLYSTYRENE SULFONATE SUSP 15 GM/60 ML UD PO ONE (21:30)
--- NOTE | 2019-12-25 22:08 | REPVR ---
PROCEDURE INFORMATION: Exam: CT Abdomen And Pelvis Without Contrast Exam date and time: 12/25/2019 9:35 PM Age: 74 years old Clinical indication: Condition or disease; Kidney or ureter condition; Acute renal insufficiency; Additional info: Acute renal failure, HX of stones, eval for obstruction TECHNIQUE: Imaging protocol: Computed tomography of the abdomen and pelvis without contrast. Radiation optimization: All CT scans at this facility use at least one of these dose optimization techniques: automated exposure control; mA and/or kV adjustment per patient size (includes targeted exams where dose is matched to clinical indication); or iterative reconstruction. COMPARISON: CT ABD PELVIS W/O CONTRAST 11/25/2019 6:09 PM FINDINGS: Lungs: Mild bibasilar interstitial coarsening with minimal fibro-atelectatic change and minimal bilateral lower lobe bronchiectasis. Liver: Normal. No mass. Gallbladder and bile ducts: There are a few large gallstones in the gallbladder which measure on the order of 16 mm. Pancreas: Normal. No ductal dilation. Spleen: Normal. No splenomegaly. Adrenals: Normal. No mass. Kidneys and ureters: Multiple nonobstructing bilateral renal calculi measuring up to 12 mm in the upper pole of the left kidney. Stomach and bowel: Status post colectomy with right lower quadrant ileostomy. No bowel dilatation. Appendix: No evidence of appendicitis. Intraperitoneal space: Unremarkable. No free air. No significant fluid collection. Vasculature: There is mild calcification of the abdominal aorta. Lymph nodes: Unremarkable. No enlarged lymph nodes. Bladder: There is a Renee catheter in the bladder. Reproductive: Retroverted uterus. Bones/joints: Facet arthropathy of the lower lumbar spine and degenerative disc changes which are greatest at L4-L5. There is mild anterolisthesis of L5 relative to S1. Soft tissues: Unremarkable. IMPRESSION: 1. Nonobstructing bilateral renal calculi. No ureteral calculi are evident and there is no evidence of obstructive uropathy. 2. Cholelithiasis. 3. Status post colectomy with right lower quadrant ileostomy. 4. Mild bibasilar interstitial coarsening with minimal fibro-atelectatic change and minimal bilateral lower lobe bronchiectasis. 5. Renee catheter in the bladder. Electronically signed by: Leeroy Smith On 12/25/2019 22:09:15 PM
[2019-12-25] MEDS ORDERED: CALCIUM GLUCONATE 1,000 MG in D5W MINI-BAG PLUS 100 ML IV ONE (22:15)
[2019-12-25] MEDS ORDERED: SODIUM BICARBONATE 8.4% INJ 50 ML SYRINGE IV STA (22:16)
--- NOTE | 2019-12-25 22:44 | HPEPDOC ---
General Date of Admission Dec 25, 2019 at 22:03 Date of Service: Dec 25, 2019 Chief Complaint The patient is a 74-year-old female admitted with a reason for visit of Tevin,Hyperkalemia. History of Present Illness This is a 74-year-old female with a history of ulcerative colitis with right- sided ileostomy, hypertension, hyperlipidemia, chronic kidney disease, stage III, history of kidney stones, reflux and depression, right-sided lithotripsy and stenting in May 2016 was admitted in November twice for TEVIN and pyelonephritis with peak creatinine of 9.0 went to [place] ED today for 1 day history of abdominal pain, nausea, vomiting, feeling weak. She was found to be hypotensive and have TEVIN with Creatinine of 13.1 and BUN >100 and K of 8. Her U/A was dirty with wbc - 40, LE+, bacteria+. She was started on Levophed, given insulin , dextrose, calcium gluconate, zosyn 3.375 and transferred here. Here she complained of abdominal discomfort around the periumbilical area, about 3/10 in intensity,with no radiation. She did say she had some diarrhea in her ileostomy bag yesterday and today. Denied any nausea now. She was admitted for TEVIN, hyperkalemia, severe high anion gap metabolic acidosis and possible Pyelonephritis. Home Medications Scheduled Allopurinol (Allopurinol) 100 Mg Tablet, 100 MG PO DAILY, (Reported) Atorvastatin Calcium (Atorvastatin Calcium) 10 Mg Tablet, 10 MG PO DAILY, (Reported) Fluoxetine HCl (Prozac) 40 Mg Cap, 40 MG PO DAILY, (Reported) Lisinopril (Lisinopril) 10 Mg Tablet, 10 MG PO DAILY, (Reported) Allergies Coded Allergies: No Known Allergies (Unverified , 08/12/18) Past Medical History Medical History Recurrent AKIs Recurrent UTIs and Pyelonephritis Ulcerative colitis. Hyperlipidemia. Hypertension. Chronic kidney disease, stage III. Ileostomy in the past. History of kidney stones with right-sided lithotripsy and stenting. Reflux disease. Depression. Surgical History Colectomy. Ileostomy. History of right-sided nephrolithotripsy with stenting May 2016. Family History Significant Family History: Cancer, Heart disease Mother age 88 with stomach cancer, father age 52 with coronary artery disease, myocardial infarction ([place]). One sister, two brothers younger than her. One brother passed at the age of 53 with throat cancer. Social History * Smoker: former Smoker A-FIB/CHADSVASC A-FIB History Current/History of A-Fib/PAF?: No Review of Systems Constitutional: Denies: Chills, Fever, Night Sweats Eyes: Denies: Pain, Vision change ENT: Denies: Head Aches, Ear Pain, Dysphagia Skin: Denies: Rash, Lesions, Breakdown Pulmonary: Denies: Dyspnea, Cough Cardiovascular: Denies: Chest Pain, Palpitations, Orthopnea, Paroxysmal Noc. Dyspnea, Lt Headedness Gastrointestinal: Reports: Nausea, Vomiting, Abdominal Pain, Diarrhea Genitourinary: Denies: Dysuria, Frequency, Incontinence, Retention Musculoskeletal: Denies: Neck Pain, Back Pain, Joint Pain, Muscle Pain, Spasms Neurological: Denies: Weakness, Numbness, Change in speech, Confusion Physical Examination General Exam: Positive: Alert, Cooperative, No Acute Distress Eye Exam: Positive: PERRLA, Conjunctiva & lids normal, EOMI; Negative: Sclera icteric ENT Exam: Positive: Atraumatic, Mucous membr. moist/pink, Pharynx Normal Neck Exam: Positive: Supple; Negative: JVD, thyromegaly Chest Exam: Positive: Clear to auscultation, Normal air movement Heart Exam: Positive: Rate Normal, Regular Rhythm, Normal S1, Normal S2; Negative: Murmurs, Rubs Telemetry: Positive: No significant arrhythmia Abdomen Exam: Positive: Normal bowel sounds, Soft, Tenderness (around the periumbilical area.); Negative: Hepatospenomegaly Extremity Exam: Negative: Clubbing, Cyanosis, Edema Skin Exam: Positive: Nl turgor and temperature; Negative: Breakdown Neuro Exam: Positive: Normal Speech, Strength at 5/5 X4 ext, Normal Tone Psych Exam: Positive: Memory Intact, Oriented x 3 Vital Signs Vital Signs Date Time Temp Pulse Resp B/P (MAP) Pulse Ox O2 Delivery O2 Flow Rate FiO2 12/25/19 21:52 87 18 93/50 (64) 93 Room Air 12/25/19 20:14 96.5 Laboratory Data Labs 24H Laboratory Tests 2 12/25/19 20:16: Immature Granulocyte % (Auto) 2.2, Neutrophils (%) (Auto) 75.0H, Lymphocytes (%) (Auto) 16.9L, Monocytes (%) (Auto) 5.5H, Eosinophils (%) (Auto) 0.0, Basophils (%) (Auto) 0.4, Neutrophils # (Auto) 6.4, Lymphocytes # (Auto) 1.5, Monocytes # (Auto) 0.5, Eosinophils # (Auto) 0.0, Basophils # (Auto) 0.0, Nucleated Red Blood Cells % (auto) 0.0, Anion Gap 14, Glomerular Filtration Rate 3.7L, Lactic Acid Level 0.8, Calcium Level 7.5L, Total Bilirubin 0.3, Direct Bilirubin 0.1, Aspartate Amino Transf (AST/SGOT) 13, Alanine Aminotransferase (ALT/SGPT) 10L, Alkaline Phosphatase 78, Total Creatine Kinase 76, Creatine Kinase MB 2.2, Creatine Kinase MB Relative Index 2.89, Troponin I < 0.02, Total Protein 6.2L, Albumin 3.1L, Albumin/Globulin Ratio 1.0L, Lipase 1299H 12/25/19 21:12: Blood Gas Bicarbonate Standard 7.9, Venous Blood pH 6.967L, Venous Blood Partial Pressure CO2 36.9L, Venous Blood Partial Pressure O2 47.1, Venous Blood Total Carbon Dioxide 9.4L, Venous Blood HCO3 8.2L, Venous Blood Oxygen Saturation 77.4, Venous Blood Base Excess -22.7L, Ammonia 37H CBC/BMP Laboratory Tests 12/25/19 20:16 Assessment/Plan This is a 74-year-old female with a history of ulcerative colitis with right- sided ileostomy, hypertension, hyperlipidemia, chronic kidney disease, stage III, history of kidney stones, reflux and depression, right-sided lithotripsy and stenting in May 2016 was admitted in November twice for TEVIN and pyelonephritis with peak creatinine of 9.0 went to [place] ED today for 1 day history of abdominal pain, nausea, vomiting, feeling weak. She was found to be hypotensive and have TEVIN with Creatinine of 13.1 and BUN >100 and K of 8. Her U/A was dirty with wbc - 40, LE+, bacteria+. She was started on Levophed, given insulin , dextrose, calcium gluconate, zosyn 3.375 and transferred here. Here she complained of abdominal discomfort around the periumbilical area, about 3/10 in intensity,with no radiation. She did say she had some diarrhea in her ileostomy bag yesterday and today. Denied any nausea now. She was admitted for TEVIN, hyperkalemia, severe high anion gap metabolic acidosis and possible Pyelonephritis. TEVIN with Hyperkalemia and high anion gap metabolic acidosis Possibly due to urinary infection, hypovolemia on the back ground of lisinopril. will give calcium gluconate, given kayexalate will start on bicarbonate gtt. nephrology consult Hypotension due to hypovolemia, severe acidosis continue levophed. Bicarb gtt. stop lisinopril UTI/Pyelonephritis UA and Culture sent in [place] please follow up continue Zosyn. Hyperlipidemia continue statin Hyperuricemia will hold allopurinol for now till creatinine better. Elevated lipase due to Acute renal failure. does not have pancreatitis. Plan / VTE VTE Prophylaxis Ordered?: Yes JACK RAMIREZ MD Dec 25, 2019 22:44
[2019-12-25 22:45] LABS: ABG PARTIAL PRESSURE CO2 26.6 mmHg (35.0-45.0); ABG PARTIAL PRESSURE O2 164.2 mmHg (75.0-100.0); ABG pH (ARTERIAL) 7.035 UNITS (7.350-7.450)
[2019-12-25 22:46] LABS: ABG BASE EXCESS -22.3 (-2.0-2.0); ABG O2 SATURATION 99.2 % (95.0-99.0); ABG STANDARD HCO3 8.1 MEQ/L (22.0-26.0); ABG TOTAL CO2 7.8 MEQ/L (23.0-31.0)
[2019-12-25] MEDS ORDERED: PIPERACILLIN/TAZOBACTAM SOD 2.25 GM in D5W MINI-BAG PLUS 50 ML IV SCH (23:00)
[2019-12-26] VITALS (40 sets, daily range): BP systolic 77–140; BP diastolic 41–78
[2019-12-26] MEDS ORDERED: AMLO1TAB24 PO (00:03)
[2019-12-26] MEDS ORDERED: PANT40TA29 PO (00:03)
[2019-12-26] MEDS: SODIUM BICARBONATE 150 MEQ in D5W 1,000 ML IV SCH ×2 (01:00→08:36)
[2019-12-26] MEDS ORDERED: ZOSYN 2.25GM VIAL (J2543) As Ordered ONE (01:03)
[2019-12-26] MEDS: PIPERACILLIN/TAZOBACTAM SOD 2.25 GM in D5W MINI-BAG PLUS 50 ML IV SCH ×3 (01:17→17:41)
--- NOTE | 2019-12-26 01:23 | REPVR ---
PROCEDURE INFORMATION: Exam: XR Chest, 1 View Exam date and time: 12/26/2019 1:05 AM Age: 74 years old Clinical indication: Device placement; Other: S/P line placement TECHNIQUE: Imaging protocol: XR of the chest Views: 1 view. COMPARISON: [facility] PORTABLE CHEST X-RAY 11/11/2019 11:10 PM FINDINGS: Tubes, catheters and devices: Left subclavian central line to the mid superior vena cava which is more withdrawn since the prior study. Lungs: Slightly coarse interstitial markings which are similar to the prior study. No interval infiltrates. Pleural space: Unremarkable. No pleural effusion. No pneumothorax. Heart/Mediastinum: The heart and mediastinum are unchanged. Bones/joints: Unremarkable. IMPRESSION: 1. Left subclavian central line to the mid superior vena cava which is more withdrawn since 11/11/2019. 2. Otherwise stable chest. No pneumothorax. Electronically signed by: Leeroy Smith On 12/26/2019 01:22:55 AM
[2019-12-26] MEDS: HEPARIN SOD (PORCINE) 5000UNITS/ML 1ML VIAL/SYRINGE SC SCH ×3 (01:34→20:08)
[2019-12-26 02:09] LABS: CALCIUM LEVEL 7.7 MG/DL (8.8-10.2); CREATININE FOR GFR 9.63 MG/DL (0.55-1.30); GLOMERULAR FILTRATION RATE 4.3 (>39); POTASSIUM SERUM 5.7 MEQ/L (3.5-5.1)
[2019-12-26 05:24] LABS: HEMATOCRIT 28.4 % (36.0-47.0); MEAN CORPUSCULAR HEMOGLOBIN 29.6 pg (27.0-33.0); MEAN CORPUSCULAR HGB CONC 31.7 g/dl (32.0-36.5); MEAN CORPUSCULAR VOLUME 93.4 fl (80.0-96.0); PLATELET COUNT, AUTOMATED 192 10^3/uL (150-450); RED BLOOD COUNT 3.04 10^6/uL (4.00-5.40); WHITE BLOOD COUNT 6.8 10^3/uL (4.0-10.0)
[2019-12-26 05:58] LABS: CALCIUM LEVEL 7.8 MG/DL (8.8-10.2); CREATININE FOR GFR 8.79 MG/DL (0.55-1.30); GLOMERULAR FILTRATION RATE 4.7 (>39); POTASSIUM SERUM 4.7 MEQ/L (3.5-5.1)
[2019-12-26 08:22] LABS: APPEARANCE, URINE CLEAR (CLEAR); BACTERIA, URINE AUTO NEGATIVE (NEGATIVE); BILIRUBIN, URINE AUTO NEGATIVE (NEGATIVE); BLOOD, URINE BLOOD 2+ (NEGATIVE); COLOR, URINE STRAW (YELLOW); GLUCOSE, URINE (UA) AUTO NEGATIVE (NEGATIVE); KETONE, URINE AUTO NEGATIVE (NEGATIVE); LEUKOCYTE ESTERASE, URINE AUTO NEGATIVE (NEGATIVE); MUCUS, URINE SMALL (NEGATIVE); NITRITE, URINE AUTO NEGATIVE (NEGATIVE); PROTEIN, URINE AUTO NEGATIVE (NEGATIVE); RBC, URINE AUTO 36 /HPF (0-3); SPECIFIC GRAVITY URINE AUTO 1.009 (1.002-1.035); SQUAMOUS EPITHELIAL CELL UR AU 0 /HPF (0-6); UROBILINOGEN, URINE AUTO 0.2 mg/dL (0.0-2.0); WBC, URINE AUTO 1 /HPF (0-3)
[2019-12-26] MEDS ORDERED: NOREPINEPHRINE BITARTRATE 8 MG in D5W 492 ML IV SCH ×3 (09:00)
--- NOTE | 2019-12-26 10:24 | IPNPDOC ---
Text Note Date of Service The patient was seen on 12/26/19. NOTE Subjective: patient's chart reviewed. patient is not a very good historian, does not speak much. she denied any abdominal pain, dysuria. No suprapubic pain. vomiting was said to be sudden onset. She had history of stent placement for ureteral stone years back, but not recently. She was septic on arrival from outside facility, and IV fluids and levophed has been started. she was also in renal failure. she denies any symptoms today, no vominting, no coughing, no chest pain, no diarrhea. no dysuria. Objective: Vital Sign - Last 24 Hours 12/25/19 12/25/19 12/25/19 12/25/19 20:14 20:16 20:54 21:52 Temp 96.5 Pulse 86 90 88 87 Resp 18 18 B/P (MAP) 117/51 (73) 95/44 104/49 (67) 93/50 (64) Pulse Ox 99 99 98 93 O2 Delivery Room Air Room Air Room Air Room Air 12/26/19 12/26/19 12/26/19 12/26/19 00:00 00:12 00:12 00:30 Temp 98.7 98.7 Pulse 90 93 93 89 Resp B/P (MAP) 101/78 (86) 101/78 (86) 109/48 (68) Pulse Ox 100 100 97 O2 Delivery Room Air Room Air Room Air 12/26/19 12/26/19 12/26/19 12/26/19 00:45 00:53 01:00 01:10 Pulse 91 91 89 86 Resp B/P (MAP) 117/54 (75) 126/56 (79) 127/61 (83) 140/61 Pulse Ox 98 98 98 O2 Delivery Room Air Room Air Room Air Room Air 12/26/19 12/26/19 12/26/19 12/26/19 01:16 01:30 01:45 01:52 Pulse 89 81 91 89 Resp B/P (MAP) 140/61 (87) 109/52 (71) 127/60 (82) 127/60 Pulse Ox 98 98 98 O2 Delivery Room Air Room Air Room Air 8/21/20 8/21/20 8/21/20 8/21/20 02:00 02:15 02:30 02:45 Pulse 90 84 85 89 Resp 15 20 20 20 B/P (MAP) 126/60 (82) 113/56 (75) 114/56 (75) 110/76 (87) Pulse Ox 97 98 98 98 O2 Delivery Room Air Room Air Room Air Room Air 12/26/19 12/26/19 12/26/19 12/26/19 03:00 04:00 04:30 05:00 Temp 99.2 Pulse 84 82 78 83 Resp 20 18 14 20 B/P (MAP) 129/58 (81) 110/52 (71) 108/56 (73) 124/56 (78) Pulse Ox 98 99 99 97 O2 Delivery Room Air Room Air Room Air Room Air 12/26/19 12/26/19 12/26/19 12/26/19 05:30 05:30 05:58 06:00 Pulse 80 77 Resp 17 17 B/P (MAP) 115/55 120/56 (77) 115/55 (75) 112/57 Pulse Ox 97 98 O2 Delivery Room Air Room Air 12/26/19 12/26/19 12/26/19 12/26/19 06:00 06:15 06:30 06:50 Temp 98.5 Pulse 74 72 75 74 Resp 17 15 16 17 B/P (MAP) 112/55 (74) 100/51 (67) 102/55 (71) 102/52 (69) Pulse Ox 96 97 98 98 O2 Delivery Room Air Room Air Room Air Room Air 12/26/19 12/26/19 08:00 09:00 Temp 98.5 Pulse 72 63 Resp 18 16 B/P (MAP) 102/52 (69) 98/51 (67) Pulse Ox 99 98 O2 Delivery Room Air Room Air evaluated at bedside, elderly woman, not in any distress General: awake, alert, oriented x 3 , not in acute respiratory distress, appe ars as stated age, HEENT: anicteric sclerae, no nasal discharges, no throat exudates, no oral lesio ns, PERRL, EOM intact, NECK: supple, no cervical tenderness, no bruit noted, no rigidity noted CHEST: clear breath sounds, equal chest expansion, no rales or wheezing CVS; s1 and s2 distinct, no murmurs audible note, no rubs, or thrills, ABDOMEN: soft, positive normoactive bowel sounds, no tenderness, no rigidity , no guarding noted - right ileostomy, draining brown stool EXTREMITIES: no limitation of ROM, no leg edema, no joint swelling, no calf tenderness, no atrophy 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 brizuela catheter I&O- Last 24 Hours up to 6 AM 12/26/19 06:00 Intake Total 1210 ml Output Total 1495 ml Balance -285 ml Current Medications Medications (Trade) Dose Ordered Sig/Gerri Route PRN Reason Start Time Stop Time Status Last Admin Dose Admin Ceftriaxone Sodium 2 gm/ Dextrose 50 ml @ 100 mls/hr Q24H IV 12/26/19 22:15 12/25/19 22:26 DC Heparin Sodium (Porcine) (Heparin) 5,000 units Q12H SC 12/25/19 21:00 12/26/19 08:43 Home Med (Med Rec Complete!) ASDIRECTED XX 12/26/19 00:15 12/26/19 00:13 DC Norepinephrine Bitartrate 8 mg/ Dextrose 500 ml @ 7.5 mls/hr Q24H IV 12/26/19 00:00 12/26/19 07:31 DC 12/26/19 00:00 Norepinephrine Bitartrate 8 mg/ Dextrose 500 ml @ 7.5 mls/hr Q24H IV 12/26/19 09:00 Piperacillin Sod/ Tazobactam Sod 2.25 gm/Dextrose 50 ml @ 100 mls/hr Q8H IV 12/25/19 23:00 12/26/19 01:06 DC Piperacillin Sod/ Tazobactam Sod 2.25 gm/Dextrose 50 ml @ 100 mls/hr Q8H IV 12/26/19 01:00 12/26/19 08:43 Sodium Bicarbonate 150 meq/Dextrose/Water 1,150 ml @ 150 mls/hr Q7H40M IV 12/25/19 23:00 12/26/19 08:36 Sodium Bicarbonate (Sodium Bicarbonate) 50 meq STAT STAT IV 12/25/19 22:16 12/25/19 22:17 DC 12/26/19 01:00 CT abdomen IMPRESSION: 1. Nonobstructing bilateral renal calculi. No ureteral calculi are evident and there is no evidence of obstructive uropathy. 2. Cholelithiasis. 3. Status post colectomy with right lower quadrant ileostomy. 4. Mild bibasilar interstitial coarsening with minimal fibro-atelectatic change and minimal bilateral lower lobe bronchiectasis. 5. Brizuela catheter in the bladder. labs reviewed ASSESSMENT: 1. Septic shock secondary to urinary tract infection 2. Acute renal failure with metabolic acidosis, due to sepsis 3. History of ulcerative colitis, s/p colectomy, ileostomy 4. Cholelithiasis, not symptomatic 5. Bilateral renal calculi, non obstructive 6. Hyperkalemia, resolved 7. elevated lipase, suspected acute pancreatitis 8. essential hypertension PLANS: * creatinine is trending down, with good urine output. She is still requiring vasopressors at this time, continue for now, with IV fluids, and weaned off pressor once Map >65. * will follow up wtih urine culture in outside facility * zosyn renal dosing to continue. * hold all nephrotoxic meds. * nephrology consulted, will follow up today. * Monitor electrolytes. * Noted on admission elevated lipase, no abdominal tenderness noted, will repeat lipse, and monitor closely, as patient has gallstone, ?gallstone induced. * Plans discussed with patient, acutely and criticall ill. * critical care time spend with patient - is 40 minutes Jose DOVE, I+O VSJose, I+O Laboratory Tests 12/25/19 20:16 12/26/19 01:30 12/26/19 05:10 Vital Signs Date Time Temp Pulse Resp B/P (MAP) Pulse Ox O2 Delivery O2 Flow Rate FiO2 12/26/19 09:00 63 16 98/51 (67) 98 Room Air 12/26/19 08:00 98.5 I&O- Last 24 Hours up to 6 AM 12/26/19 06:00 Intake Total 1210 ml Output Total 1495 ml Balance -285 ml PHILLIP FUCHS MD Dec 26, 2019 10:23
[2019-12-26 11:29] LABS: POTASSIUM RANDOM URINE 14.8 MEQ/L
[2019-12-26] MEDS: SODIUM BICARBONATE 75 MEQ in NS 0.45% 1,000 ML IV SCH ×2 (14:13→22:13)
[2019-12-26] MEDS ORDERED: cefTRIAXone SOD 2 GM in D5W MINI-BAG PLUS 50 ML IV SCH (22:15)
[2019-12-27] VITALS (16 sets, daily range): BP systolic 90–156; BP diastolic 46–71
[2019-12-27] MEDS: PIPERACILLIN/TAZOBACTAM SOD 2.25 GM in D5W MINI-BAG PLUS 50 ML IV SCH ×3 (00:22→18:03)
[2019-12-27 04:14] LABS: HEMATOCRIT 23.8 % (36.0-47.0); HEMOGLOBIN 7.8 g/dl (12.0-15.5); MEAN CORPUSCULAR HEMOGLOBIN 29.9 pg (27.0-33.0); MEAN CORPUSCULAR HGB CONC 32.8 g/dl (32.0-36.5); MEAN CORPUSCULAR VOLUME 91.2 fl (80.0-96.0); PLATELET COUNT, AUTOMATED 167 10^3/uL (150-450); RED BLOOD COUNT 2.61 10^6/uL (4.00-5.40); WHITE BLOOD COUNT 5.6 10^3/uL (4.0-10.0)
[2019-12-27 04:43] LABS: ALBUMIN 2.6 GM/DL (3.2-5.2); BILIRUBIN,TOTAL 0.6 MG/DL (0.2-1.0); CALCIUM LEVEL 7.5 MG/DL (8.8-10.2); CREATININE FOR GFR 2.82 MG/DL (0.55-1.30); GLOMERULAR FILTRATION RATE 17.5 (>39); POTASSIUM SERUM 3.9 MEQ/L (3.5-5.1); TOTAL PROTEIN 4.9 GM/DL (6.4-8.2)
[2019-12-27] MEDS: SODIUM BICARBONATE 75 MEQ in NS 0.45% 1,000 ML IV SCH (06:15)
[2019-12-27] MEDS: HEPARIN SOD (PORCINE) 5000UNITS/ML 1ML VIAL/SYRINGE SC SCH ×2 (09:13→20:00)
--- NOTE | 2019-12-27 10:30 | IPNPDOC ---
Text Note Date of Service The patient was seen on 12/27/19. NOTE patient seen today. Off levophed since midnight. BP 130/80 mmHg. Noted vomiting noted 1 liter output on ileostomy. No chest pain, no abdominal pain Vital Sign - Last 24 Hours 12/26/19 12/26/19 12/26/19 12/26/19 11:00 11:15 11:30 11:45 Pulse 60 60 62 67 Resp 12 14 16 16 B/P (MAP) 77/41 (53) 78/44 (55) 89/51 (64) 104/51 (68) Pulse Ox 96 97 98 98 O2 Delivery Room Air Room Air Room Air Room Air 12/26/19 12/26/19 12/26/19 12/26/19 12:00 13:00 14:00 15:00 Temp 98.0 Pulse 72 70 69 67 Resp 16 18 16 16 B/P (MAP) 114/54 (74) 107/54 (71) 87/54 (65) 87/52 (64) Pulse Ox 97 98 93 94 O2 Delivery Room Air Room Air Room Air Room Air 12/26/19 12/26/19 12/26/19 12/26/19 16:00 17:00 18:00 20:00 Temp 98.4 98.2 Pulse 77 67 67 71 Resp 18 18 18 18 B/P (MAP) 98/51 (67) 102/55 (71) 90/54 (66) 89/55 (66) Pulse Ox 94 95 97 96 O2 Delivery Room Air Room Air Room Air Room Air 12/26/19 12/26/19 12/26/19 12/27/19 21:00 22:00 23:00 00:00 Pulse 63 60 58 Resp 18 16 20 B/P (MAP) 93/52 (66) 102/54 (70) 115/53 (73) Pulse Ox 95 94 94 O2 Delivery Room Air Room Air Room Air O2 Flow Rate 2.0 12/27/19 12/27/19 12/27/19 12/27/19 00:00 00:30 00:45 01:00 Temp 98.0 Pulse 65 Resp 20 B/P (MAP) 119/60 (79) 115/57 (76) 102/51 (68) 102/52 (69) Pulse Ox 86 94 92 91 O2 Delivery Nasal Cannula Nasal Cannula Nasal Cannula Nasal Cannula O2 Flow Rate 2.0 2.0 2.0 2.0 12/27/19 12/27/19 12/27/19 12/27/19 01:15 01:30 01:45 02:00 B/P (MAP) 99/49 (66) 97/49 (65) 109/51 (70) 114/56 (75) Pulse Ox 96 94 93 92 O2 Delivery Nasal Cannula Nasal Cannula Nasal Cannula Nasal Cannula O2 Flow Rate 2.0 2.0 2.0 2.0 12/27/19 12/27/19 12/27/19 12/27/19 02:15 03:00 04:00 04:00 Temp 97.9 Pulse 67 67 Resp 18 20 B/P (MAP) 103/51 (68) 98/49 (65) 113/56 (75) Pulse Ox 95 96 98 O2 Delivery Nasal Cannula Nasal Cannula Nasal Cannula O2 Flow Rate 2.0 2.0 2.0 2.0 12/27/19 12/27/19 06:00 08:00 Temp 98.6 Pulse 62 60 Resp 18 16 B/P (MAP) 90/46 (61) 135/62 (86) Pulse Ox 96 93 O2 Delivery Nasal Cannula Room Air O2 Flow Rate 2.0 Evaluated at bedside. not in any distress, more awake and more conversant General: awake, alert, oriented x 3 , not in acute respiratory distress, appears as stated age, HEENT: anicteric sclerae, no nasal discharges, no throat exudates, no oral lesions, PERRL, EOM intact, NECK: supple, no cervical tenderness, no bruit noted, no rigidity noted CHEST: clear breath sounds, equal chest expansion, no rales or wheezing CVS; s1 and s2 distinct, no murmurs audible note, no rubs, or thrills, ABDOMEN: soft, positive normoactive bowel sounds, no tenderness, no rigidity , no guarding noted - right ileostomy, draining brown stool EXTREMITIES: no limitation of ROM, no leg edema, no joint swelling, no calf tenderness, no atrophy 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 brizuela catheter I&O- Last 24 Hours up to 6 AM 12/27/19 06:00 Intake Total 3924 ml Output Total 2745 ml Balance 1179 ml Current Medications Medications (Trade) Dose Ordered Sig/Gerri Route PRN Reason Start Time Stop Time Status Last Admin Dose Admin Ceftriaxone Sodium 2 gm/ Dextrose 50 ml @ 100 mls/hr Q24H IV 12/26/19 22:15 12/25/19 22:26 DC Heparin Sodium (Porcine) (Heparin) 5,000 units Q12H SC 12/25/19 21:00 12/26/19 08:43 Home Med (Med Rec Complete!) ASDIRECTED XX 12/26/19 00:15 12/26/19 00:13 DC Norepinephrine Bitartrate 8 mg/ Dextrose 500 ml @ 7.5 mls/hr Q24H IV 12/26/19 00:00 12/26/19 07:31 DC 12/26/19 00:00 Norepinephrine Bitartrate 8 mg/ Dextrose 500 ml @ 7.5 mls/hr Q24H IV 12/26/19 09:00 Piperacillin Sod/ Tazobactam Sod 2.25 gm/Dextrose 50 ml @ 100 mls/hr Q8H IV 12/25/19 23:00 12/26/19 01:06 DC Piperacillin Sod/ Tazobactam Sod 2.25 gm/Dextrose 50 ml @ 100 mls/hr Q8H IV 12/26/19 01:00 12/26/19 08:43 Sodium Bicarbonate 150 meq/Dextrose/Water 1,150 ml @ 150 mls/hr Q7H40M IV 12/25/19 23:00 12/26/19 08:36 Sodium Bicarbonate (Sodium Bicarbonate) 50 meq STAT STAT IV 12/25/19 22:16 12/25/19 22:17 DC 12/26/19 01:00 CT abdomen IMPRESSION: 1. Nonobstructing bilateral renal calculi. No ureteral calculi are evident and there is no evidence of obstructive uropathy. 2. Cholelithiasis. 3. Status post colectomy with right lower quadrant ileostomy. 4. Mild bibasilar interstitial coarsening with minimal fibro-atelectatic change and minimal bilateral lower lobe bronchiectasis. 5. Brizuela catheter in the bladder. Laboratory Tests 12/27/19 04:00 Laboratory Tests 12/25/19 20:16 12/26/19 01:30 8/21/20 05:10 12/27/19 04:00 ASSESSMENT: 1. Septic shock secondary to urinary tract infection 2. Acute renal failure with metabolic acidosis, multifactorial - could be due to sepsis, medications (allopurinol), or possibly high output ileostomy 3. History of ulcerative colitis, s/p colectomy, ileostomy 4. Cholelithiasis, not symptomatic 5. Bilateral renal calculi, non obstructive 6. Hyperkalemia, resolved 7. Elevated lipase, suspected acute pancreatitis 8. Essential hypertension PLANS: * Noted renal failure is improving. BP improved, off pressors. Bicarb is 27. Currently on sodium bicarb still at 125 ml/hour, will discuss with nephrology to d/c bicarb. * Will continue to monitor output of ileostomy. Will slowly resume some of her home meds once renal function resolves, and monitor. * high risk VS,Fishbone, I+O VS, Fishbone, I+O Laboratory Tests 12/27/19 04:00 Vital Signs Date Time Temp Pulse Resp B/P (MAP) Pulse Ox O2 Delivery O2 Flow Rate FiO2 12/27/19 08:00 98.6 60 16 135/62 (86) 93 Room Air 12/27/19 06:00 2.0 I&O- Last 24 Hours up to 6 AM 12/27/19 06:00 Intake Total 3924 ml Output Total 2745 ml Balance 1179 ml PHILLIP FUCHS MD Dec 27, 2019 10:30
[2019-12-27] MEDS: KCL 20MEQ IN 0.45NS 1000ML 1,000 ML IV SCH (12:06)
[2019-12-27] MEDS ORDERED: ONDANSETRON 4MG/2ML VIAL IV PRN (13:45)
[2019-12-27 17:29] LABS: PERCENT SATURATION 58.2 % (13.2-45.0)
[2019-12-28] VITALS: BP 124/52
[2019-12-28] MEDS: KCL 20MEQ IN 0.45NS 1000ML 1,000 ML IV SCH (00:11)
[2019-12-28] MEDS: PIPERACILLIN/TAZOBACTAM SOD 2.25 GM in D5W MINI-BAG PLUS 50 ML IV SCH ×2 (00:11→08:27)
[2019-12-28 04:00] VITALS: BP 106/55
[2019-12-28 04:53] LABS: HEMATOCRIT 23.5 % (36.0-47.0); HEMOGLOBIN 7.8 g/dl (12.0-15.5); MEAN CORPUSCULAR HGB CONC 33.2 g/dl (32.0-36.5); MEAN CORPUSCULAR VOLUME 93.3 fl (80.0-96.0); PLATELET COUNT, AUTOMATED 154 10^3/uL (150-450); RED BLOOD COUNT 2.52 10^6/uL (4.00-5.40)
[2019-12-28 05:40] LABS: ALBUMIN 2.4 GM/DL (3.2-5.2); BILIRUBIN,TOTAL 0.5 MG/DL (0.2-1.0); CALCIUM LEVEL 7.8 MG/DL (8.8-10.2); CREATININE FOR GFR 1.27 MG/DL (0.55-1.30); POTASSIUM SERUM 4.3 MEQ/L (3.5-5.1)
[2019-12-28 08:00] VITALS: BP 162/72
[2019-12-28] MEDS: HEPARIN SOD (PORCINE) 5000UNITS/ML 1ML VIAL/SYRINGE SC SCH ×2 (08:27→20:25)
[2019-12-28] MEDS ORDERED: DARBEPOETIN 100 MCG/0.5 ML *NON-DIALYSIS* SYRINGE (J0881) SC SCH (09:00)
[2019-12-28] MEDS: amLODIPine 5 MG TAB PO SCH (11:10)
[2019-12-28] MEDS: FAMOTIDINE 20 MG TAB PO SCH ×2 (11:10→20:25)
--- NOTE | 2019-12-28 11:13 | IPNPDOC ---
Text Note Date of Service The patient was seen on 12/28/19. NOTE notified by nurse that patient had not been eating much. Not a lot of output f rom ileostomy site. Patient denies any dysphagia, or odynophagia. She denies ay abdominal pain but has persistent nausea. No diarrhea, no vomiting.No fever or chills. BP stable Vital Sign - Last 24 Hours 12/27/19 12/27/19 12/27/19 12/28/19 12:00 16:00 20:00 00:00 Temp 98.4 98.8 98.5 98.2 Pulse 73 63 65 61 Resp 16 14 16 18 B/P (MAP) 156/71 (99) 144/65 (91) 156/71 (99) 124/52 (76) Pulse Ox 94 95 98 96 O2 Delivery Room Air Room Air Room Air Room Air 12/28/19 12/28/19 04:00 08:00 Temp 97.9 99.0 Pulse 58 71 Resp 18 18 B/P (MAP) 106/55 (72) 162/72 (102) Pulse Ox 95 96 O2 Delivery Room Air Room Air Evaluated at bedside. not in any distress, more awake and more conversant General: awake, alert, oriented x 3 , not in acute respiratory distress, appears as stated age, HEENT: anicteric sclerae, no nasal discharges, no throat exudates, no oral lesions, PERRL, EOM intact, NECK: supple, no cervical tenderness, no bruit noted, no rigidity noted CHEST: clear breath sounds, equal chest expansion, no rales or wheezing CVS; s1 and s2 distinct, no murmurs audible note, no rubs, or thrills, ABDOMEN: soft, positive normoactive bowel sounds, no tenderness, no rigidity , no guarding noted - right ileostomy, draining brown stool/liquid EXTREMITIES: no limitation of ROM, no leg edema, no joint swelling, no calf tenderness, no atrophy 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 brizuela catheter I&O- Last 24 Hours up to 6 AM 12/28/19 06:00 Intake Total 2890 ml Output Total 2165 ml Balance 725 ml Current Medications Medications (Trade) Dose Ordered Sig/Gerri Route PRN Reason Start Time Stop Time Status Last Admin Dose Admin Ceftriaxone Sodium 2 gm/ Dextrose 50 ml @ 100 mls/hr Q24H IV 12/26/19 22:15 12/25/19 22:26 DC Heparin Sodium (Porcine) (Heparin) 5,000 units Q12H SC 12/25/19 21:00 12/26/19 08:43 Home Med (Med Rec Complete!) ASDIRECTED XX 12/26/19 00:15 12/26/19 00:13 DC Norepinephrine Bitartrate 8 mg/ Dextrose 500 ml @ 7.5 mls/hr Q24H IV 12/26/19 00:00 12/26/19 07:31 DC 12/26/19 00:00 Norepinephrine Bitartrate 8 mg/ Dextrose 500 ml @ 7.5 mls/hr Q24H IV 12/26/19 09:00 Piperacillin Sod/ Tazobactam Sod 2.25 gm/Dextrose 50 ml @ 100 mls/hr Q8H IV 12/25/19 23:00 12/26/19 01:06 DC Piperacillin Sod/ Tazobactam Sod 2.25 gm/Dextrose 50 ml @ 100 mls/hr Q8H IV 12/26/19 01:00 12/26/19 08:43 Sodium Bicarbonate 150 meq/Dextrose/Water 1,150 ml @ 150 mls/hr Q7H40M IV 12/25/19 23:00 12/26/19 08:36 Sodium Bicarbonate (Sodium Bicarbonate) 50 meq STAT STAT IV 12/25/19 22:16 12/25/19 22:17 DC 12/26/19 01:00 CT abdomen IMPRESSION: 1. Nonobstructing bilateral renal calculi. No ureteral calculi are evident and there is no evidence of obstructive uropathy. 2. Cholelithiasis. 3. Status post colectomy with right lower quadrant ileostomy. 4. Mild bibasilar interstitial coarsening with minimal fibro-atelectatic change and minimal bilateral lower lobe bronchiectasis. 5. Brizuela catheter in the bladder. ASSESSMENT: 1. Septic shock secondary to urinary tract infection, suspected UTI 2. Acute renal failure with metabolic acidosis, multifactorial - could be due to sepsis, medications (allopurinol), or possibly high output ileostomy 3. History of ulcerative colitis, s/p colectomy, ileostomy 4. Cholelithiasis, not symptomatic 5. Bilateral renal calculi, non obstructive 6. Hyperkalemia, resolved 7. Elevated lipase, suspected acute pancreatitis 8. Essential hypertension 9. ANemia, no active blood loss, PLANS: * urine culture no growth, d/c zosyn. * BP slightly elevated, if ok with nephrology,d/c fluids. Resume amlodipine * Output of ileostomy has not been a lot. ?allergy to her medications. Will slowly resume her home meds and monitor. * Hold off of allopurinol and liisnopril. * transfer to med surg. * her oral intake has been poor. US abdomen ordered. * renal function back to normal * noted HGb, transfuse if <7. * PPI to be restarted. * moderate risk * SCD * DVT: SCD, heparin, although stop heparin if hgb continue to drop VS,Fishbone, I+O VS, Fishbone, I+O Laboratory Tests 12/28/19 04:40 Vital Signs Date Time Temp Pulse Resp B/P (MAP) Pulse Ox O2 Delivery O2 Flow Rate FiO2 12/28/19 08:00 99.0 71 18 162/72 (102) 96 Room Air 12/27/19 06:00 2.0 I&O- Last 24 Hours up to 6 AM 12/28/19 06:00 Intake Total 2890 ml Output Total 2165 ml Balance 725 ml PHILLIP FUCHS MD Dec 28, 2019 11:13
[2019-12-28 14:00] VITALS: BP 156/65
[2019-12-28] MEDS: MEGESTROL 40 MG TAB PO SCH (16:15)
[2019-12-28 22:00] VITALS: BP 158/71
[2019-12-29 06:00] VITALS: BP 135/68
[2019-12-29] MEDS: HEPARIN SOD (PORCINE) 5000UNITS/ML 1ML VIAL/SYRINGE SC SCH ×2 (08:51→21:16)
[2019-12-29] MEDS: amLODIPine 5 MG TAB PO SCH (08:52)
[2019-12-29] MEDS: FAMOTIDINE 20 MG TAB PO SCH ×2 (08:52→21:16)
[2019-12-29] MEDS: MEGESTROL 40 MG TAB PO SCH (08:53)
[2019-12-29 11:25] LABS: HEMATOCRIT 28.3 % (36.0-47.0); MEAN CORPUSCULAR HEMOGLOBIN 30.2 pg (27.0-33.0); MEAN CORPUSCULAR HGB CONC 31.8 g/dl (32.0-36.5); PLATELET COUNT, AUTOMATED 185 10^3/uL (150-450); RED BLOOD COUNT 2.98 10^6/uL (4.00-5.40); WHITE BLOOD COUNT 6.5 10^3/uL (4.0-10.0)
[2019-12-29 11:59] LABS: ALBUMIN 2.8 GM/DL (3.2-5.2); ALT/SGPT 7 U/L (12-78); BILIRUBIN,TOTAL 0.5 MG/DL (0.2-1.0); BLOOD UREA NITROGEN 16 MG/DL (7-18); CALCIUM LEVEL 8.4 MG/DL (8.8-10.2); CARBON DIOXIDE LEVEL 32 MEQ/L (21-32); CHLORIDE LEVEL 110 MEQ/L (98-107); CREATININE FOR GFR 0.88 MG/DL (0.55-1.30); GLOMERULAR FILTRATION RATE > 60.0 (>39); GLUCOSE, FASTING 83 MG/DL (70-100); POTASSIUM SERUM 4.5 MEQ/L (3.5-5.1); SODIUM LEVEL 144 MEQ/L (136-145); TOTAL PROTEIN 5.6 GM/DL (6.4-8.2)
[2019-12-29 12:20] LABS: CORTISOL AM 15.2 UG/DL (4.3-22.4)
[2019-12-29] MEDS: FLUoxetine 20 MG CAP PO SCH (13:01)
[2019-12-29 14:00] VITALS: BP 135/73
--- NOTE | 2019-12-29 15:44 | IPNPDOC ---
Text Note Date of Service The patient was seen on 12/29/19. NOTE Hospital course Ms. Abrams with history of ileostomy, due to ulcerative colitis, had history of kidney stones, recurrent renal failure, metabolic acidosis, shock, now resolved. No obstructive uropathy, initially suspected as UTI, cultures negative. Off antibiotics. Suspecting likely allergy to her home meds - allopurinol lisinopril. Discussed with nephrology (nephrologyon board). Patient was on ICU as she required levophed. Subjective: patient appears well, better than yesterday, oral intake is improving. US abdomen pending. No vomiting, no nausea. No weakness, she gets around fairly well. No fever. no chills. off brizuela Vital Sign - Last 24 Hours 12/28/19 12/29/19 12/29/19 12/29/19 22:00 06:00 08:52 14:00 Temp 98.1 99.0 99.1 Pulse 64 78 80 Resp 20 20 16 B/P (MAP) 158/71 (100) 135/68 (90) 132/74 135/73 (93) Pulse Ox 96 93 96 O2 Delivery Room Air General: awake, alert, oriented x 3 , not in acute respiratory distress, appears as stated age, HEENT: anicteric sclerae, no nasal discharges, no throat exudates, no oral lesions, PERRL, EOM intact, NECK: supple, no cervical tenderness, no bruit noted, no rigidity noted CHEST: clear breath sounds, equal chest expansion, no rales or wheezing CVS; s1 and s2 distinct, no murmurs audible note, no rubs, or thrills, ABDOMEN: soft, positive normoactive bowel sounds, no tenderness, no rigidity , no guarding noted - right ileostomy, draining brown stool/liquid EXTREMITIES: no limitation of ROM, no leg edema, no joint swelling, no calf tenderness, no atrophy 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 brizuela catheter I&O- Last 24 Hours up to 6 AM 12/28/19 06:00 Intake Total 2890 ml Output Total 2165 ml Balance 725 ml Current Medications Medications (Trade) Dose Ordered Sig/Gerri Route PRN Reason Start Time Stop Time Status Last Admin Dose Admin Ceftriaxone Sodium 2 gm/ Dextrose 50 ml @ 100 mls/hr Q24H IV 12/26/19 22:15 12/25/19 22:26 DC Heparin Sodium (Porcine) (Heparin) 5,000 units Q12H SC 12/25/19 21:00 12/26/19 08:43 Home Med (Med Rec Complete!) ASDIRECTED XX 12/26/19 00:15 12/26/19 00:13 DC Norepinephrine Bitartrate 8 mg/ Dextrose 500 ml @ 7.5 mls/hr Q24H IV 12/26/19 00:00 12/26/19 07:31 DC 12/26/19 00:00 Norepinephrine Bitartrate 8 mg/ Dextrose 500 ml @ 7.5 mls/hr Q24H IV 12/26/19 09:00 Piperacillin Sod/ Tazobactam Sod 2.25 gm/Dextrose 50 ml @ 100 mls/hr Q8H IV 12/25/19 23:00 12/26/19 01:06 DC Piperacillin Sod/ Tazobactam Sod 2.25 gm/Dextrose 50 ml @ 100 mls/hr Q8H IV 12/26/19 01:00 12/26/19 08:43 Sodium Bicarbonate 150 meq/Dextrose/Water 1,150 ml @ 150 mls/hr Q7H40M IV 12/25/19 23:00 12/26/19 08:36 Sodium Bicarbonate (Sodium Bicarbonate) 50 meq STAT STAT IV 12/25/19 22:16 12/25/19 22:17 DC 12/26/19 01:00 CT abdomen IMPRESSION: 1. Nonobstructing bilateral renal calculi. No ureteral calculi are evident and there is no evidence of obstructive uropathy. 2. Cholelithiasis. 3. Status post colectomy with right lower quadrant ileostomy. 4. Mild bibasilar interstitial coarsening with minimal fibro-atelectatic change and minimal bilateral lower lobe bronchiectasis. 5. Brizuela catheter in the bladder. Laboratory Tests 12/29/19 10:50 ASSESSMENT: 1. Septic shock secondary to urinary tract infection, suspected UTI 2. Acute renal failure with metabolic acidosis, multifactorial - could be due to sepsis, medications (allopurinol), or possibly high output ileostomy 3. History of ulcerative colitis, s/p colectomy, ileostomy 4. Cholelithiasis, not symptomatic 5. Bilateral renal calculi, non obstructive 6. Hyperkalemia, resolved 7. Elevated lipase, suspected acute pancreatitis 8. Essential hypertension 9. ANemia, no active blood loss, PLANS diet changed to regular diet. US abdomen pending. Oral intake has not been quite well, calorie counting. Will resume her home meds, except allopurinol and lisinopril and monitor for recurrence of renal injury. given the severity of her renal failure, will d/c lisinopril and allopurinol as medications are likely the reason for recurrent failure once oral intake is up to par, US negative, anticipate discharge in next 24 hours. VS,Fishbone, I+O VS, Fishbone, I+O Laboratory Tests 12/29/19 10:50 Vital Signs Date Time Temp Pulse Resp B/P (MAP) Pulse Ox O2 Delivery O2 Flow Rate FiO2 12/29/19 14:00 99.1 80 16 135/73 (93) 96 Room Air 12/27/19 06:00 2.0 I&O- Last 24 Hours up to 6 AM 12/29/19 06:00 Intake Total 1180 ml Output Total 215 ml Balance 965 ml PHILLIP FUCHS MD Dec 29, 2019 15:43
[2019-12-29 15:49] LABS: FOLATE 18.2 NG/ML
[2019-12-29] MEDS ORDERED: ATORVASTATIN 10 MG TAB PO SCH (21:00)
[2019-12-29 22:00] VITALS: BP 135/73
[2019-12-30 06:00] VITALS: BP 141/78
[2019-12-30] MEDS: FAMOTIDINE 20 MG TAB PO SCH (10:13)
[2019-12-30] MEDS: FLUoxetine 20 MG CAP PO SCH (10:13)
[2019-12-30] MEDS: MEGESTROL 40 MG TAB PO SCH (10:13)
[2019-12-30 10:14] VITALS: BP 143/80
[2019-12-30] MEDS: amLODIPine 5 MG TAB PO SCH (10:14)
[2019-12-30] MEDS: HEPARIN SOD (PORCINE) 5000UNITS/ML 1ML VIAL/SYRINGE SC SCH (10:15)
--- NOTE | 2019-12-30 16:27 | DS.PDOC ---
Discharge Summary General Date of Admission Dec 25, 2019 at 22:03 Date of Discharge 12/30/19 Attending Physician: Viki Romero MD Discharge Summary HPI: This is a 74-year-old female with a history of ulcerative colitis with right- sided ileostomy, hypertension, hyperlipidemia, chronic kidney disease, stage III, history of kidney stones, reflux and depression, right-sided lithotripsy and stenting in May 2016 was admitted in November twice for DINA and pyelonephritis with peak creatinine of 9.0 went to [facility] ED today for 1 day history of abdominal pain, nausea, vomiting, feeling weak. She was found to be hypotensive and have DINA with Creatinine of 13.1 and BUN >100 and K of 8. Her U/A was dirty with wbc - 40, LE+, bacteria+. She was started on Levophed, given insulin , dextrose, calcium gluconate, zosyn 3.375 and transferred here. Here she complained of abdominal discomfort around the periumbilical area, about 3/10 in intensity,with no radiation. She did say she had some diarrhea in her ileostomy bag yesterday and today. Denied any nausea now. She was admitted for DINA, hyperkalemia, severe high anion gap metabolic acidosis and possible Pyelone phritis. HOSPITAL COURSE: ACEi and allopurinol were held during hospitalization. IVFs continued. Gradually her DINA improved over several days. Nephrology recommended the continued course of treatment. No biopsy was performed. She was treated for UTI; however, UCx later grew nothing so abx were stopped. There was some suspicion of allergy to either ACEi or allopurinol per records. Hyperkalemia and Cr normalized by 12/30/19 and patient was discharged home to follow up with PCP within 1-2 weeks. She can resume ACEi; however, she will need to discuss with PCP about when or if to restart allopurinol. There is no need to f/u with nephrology as outpatient. At time of discharge, patient denies chest pain, n/v/d, fevers, chills, shortness. ROS: Negative except for what is mentioned above. ALLERGIES: NKDA PMH: Recurrent AKIs Recurrent UTIs and Pyelonephritis Ulcerative colitis. Hyperlipidemia. Hypertension. Chronic kidney disease, stage III. Ileostomy in the past. History of kidney stones with right-sided lithotripsy and stenting. Reflux disease. Depression. PSURGHx: Colectomy. Ileostomy. History of right-sided nephrolithotripsy with stenting May 2016. FAMILY HISTORY: Cancer, Heart disease Mother age 88 with stomach cancer, father age 52 with coronary artery disease, myocardial infarction ([place]). One sister, two brothers younger than her. One brother passed at the age of 53 with throat cancer. SOCIAL HX: Former smoker PHYSICAL EXAMINATION: VS: See below GENERAL: In NAD, resting in bed HEENT: anicteric sclerae, no nasal discharges, no throat exudates, no oral lesions, PERRL, EOM intact, NECK: supple, no cervical tenderness, no bruit noted, no rigidity noted CHEST: clear breath sounds, equal chest expansion, no rales or wheezing CVS; s1 and s2 distinct, no murmurs audible note, no rubs, or thrills, ABDOMEN: soft, positive normoactive bowel sounds, no tenderness, no rigidity , no guarding noted - right ileostomy, draining brown stool/liquid EXTREMITIES: no limitation of ROM, no leg edema, no joint swelling, no calf tenderness, no atrophy 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 CT abdomen: 1. Nonobstructing bilateral renal calculi. No ureteral calculi are evident and there is no evidence of obstructive uropathy. 2. Cholelithiasis. 3. Status post colectomy with right lower quadrant ileostomy. 4. Mild bibasilar interstitial coarsening with minimal fibro-atelectatic change and minimal bilateral lower lobe bronchiectasis. 5. Renee catheter in the bladder. ASSESSMENT: 74 y/o F admitted for septic shock 2/2 to UTI, DINA 2/2 to sepsis and likely allopurinol, possibly DINA vs. high output ileostomy. DISCHARGE DIAGNOSES: 1. Septic shock 2/2 suspected UTI, UCx later NG 2. Acute renal failure with metabolic acidosis, multifactorial - could be due to sepsis, medications (allopurinol), or possibly high output ileostomy 3. History of ulcerative colitis, s/p colectomy, ileostomy 4. Cholelithiasis, not symptomatic 5. Bilateral renal calculi, non obstructive 6. Hyperkalemia, resolved 7. Elevated lipase, suspected acute pancreatitis 8. Essential hypertension 9. Anemia, no active blood loss PLAN: Patient is to f/u with PCP after discharge within 1-2 weeks. At that time, to discuss restarting allopurinol in addition to ACEi restarted at discharge. More likely to be allopurinol vs. ACEi that caused drastic DINA. Encouraged to drink at least 80-100 ounces water daily, adequate food intake. TIME SPENT ON DISCHARGE: Greater than 30 minutes. Vital Signs/I&Os Vital Signs Date Time Temp Pulse Resp B/P (MAP) Pulse Ox O2 Delivery O2 Flow Rate FiO2 12/30/19 10:14 81 143/80 12/30/19 06:00 99.2 18 94 Room Air 12/27/19 06:00 2.0 I&O- Last 24 Hours up to 6 AM 12/30/19 05:59 Intake Total 920 ml Output Total 0 ml Balance 920 ml Microbiology Microbiology 12/27/19 Stool Occult Blood (RANDI) - Final, Complete 12/26/19 Urine Culture - Final, Complete Discharge Medications Scheduled Amlodipine Besylate (Amlodipine Besylate) 5 Mg Tablet, 5 MG PO DAILY, (Reported) Atorvastatin Calcium (Atorvastatin Calcium) 10 Mg Tablet, 10 MG PO DAILY, (Reported) Fluoxetine HCl (Prozac) 40 Mg Cap, 40 MG PO DAILY, (Reported) Lisinopril (Lisinopril) 10 Mg Tablet, 10 MG PO DAILY, (Reported) Pantoprazole Sodium (Pantoprazole Sodium) 40 Mg Tablet.dr, 40 MG PO BID, (Reported) Allergies Coded Allergies: No Known Allergies (Unverified , 08/12/18) Current Medications Current Medications Medications (Trade) Dose Ordered Sig/Gerri Route PRN Reason Start Time Stop Time Status Last Admin Dose Admin Amlodipine Besylate (Norvasc) 5 mg DAILY PO 12/28/19 09:00 12/30/19 11:21 DC 12/30/19 10:14 Atorvastatin Calcium (Lipitor) 10 mg QHS PO 12/29/19 21:00 12/30/19 11:21 DC 12/29/19 21:15 Ceftriaxone Sodium 2 gm/ Dextrose 50 ml @ 100 mls/hr Q24H IV 12/26/19 22:15 12/25/19 22:26 DC Darbepoetin Hardy (Aranesp) 100 mcg Mendoza@09 SC 12/28/19 09:00 12/30/19 11:21 DC 12/28/19 08:27 Famotidine (Pepcid) 40 mg BID PO 12/28/19 09:00 12/30/19 11:21 DC 12/30/19 10:13 Fluoxetine HCl (PROzac) 40 mg DAILY PO 12/29/19 12:45 12/30/19 11:21 DC 12/30/19 10:13 Heparin Sodium (Porcine) (Heparin) 5,000 units Q12H SC 12/25/19 21:00 12/30/19 11:21 DC 12/30/19 10:15 Home Med (Med Rec Complete!) ASDIRECTED XX 12/26/19 00:15 12/26/19 00:13 DC Megestrol Acetate (Megace) 40 mg DAILY PO 12/28/19 09:00 12/30/19 11:21 DC 12/30/19 10:13 Norepinephrine Bitartrate 8 mg/ Dextrose 500 ml @ 7.5 mls/hr Q24H IV 12/26/19 00:00 12/26/19 07:31 DC 12/26/19 00:00 Norepinephrine Bitartrate 8 mg/ Dextrose 500 ml @ 7.5 mls/hr Q24H IV 12/26/19 09:00 12/27/19 10:21 DC Ondansetron HCl (ZOFRAN INJection) 4 mg Q6H PRN IV nausea and vomiting 12/27/19 13:45 12/30/19 11:21 DC 12/27/19 13:41 Piperacillin Sod/ Tazobactam Sod 2.25 gm/Dextrose 50 ml @ 100 mls/hr Q8H IV 12/25/19 23:00 12/26/19 01:06 DC Piperacillin Sod/ Tazobactam Sod 2.25 gm/Dextrose 50 ml @ 100 mls/hr Q8H IV 12/26/19 01:00 12/28/19 11:10 DC 12/28/19 08:27 Potassium Chloride/Sodium Chloride 1,000 ml @ 80 mls/hr [id number] IV 12/27/19 12:00 12/28/19 10:53 DC 12/28/19 00:11 Sodium Bicarbonate 150 meq/Dextrose/Water 1,150 ml @ 150 mls/hr Q7H40M IV 12/25/19 23:00 12/26/19 11:30 DC 12/26/19 08:36 Sodium Bicarbonate 75 meq/Sodium Chloride 1,075 ml @ 125 mls/hr Q8H36M IV 12/26/19 14:00 12/27/19 11:22 DC 12/27/19 06:15 Sodium Bicarbonate (Sodium Bicarbonate) 50 meq STAT STAT IV 12/25/19 22:16 12/25/19 22:17 DC 12/26/19 01:00 Viki Romero MD Dec 30, 2019 16:27
--- NOTE | 2020-01-02 08:50 | REP ---
RIGHT UPPER QUADRANT SONOGRAPHY HISTORY: Persistent nausea. FINDINGS: Scanning through the right upper quadrant of the abdomen demonstrates echogenic shadowing gallstones in the gallbladder lumen. Gallbladder wall is thickened to 5 mm in thickness and there is minor pericholecystic fluid. Common bile duct is normal measuring 0.14 cm. There is a trace of fluid around the gallbladder and a trace of fluid around the liver. No focal liver lesion is seen. Limited views of the pancreas show no abnormality. The right kidney measures 9.6 x 5.3 x 4.8 cm and contains an echogenic shadowing focus as well 0.6 cm in diameter suggesting the possibility of an intrarenal calculus in the right kidney. IMPRESSION: Cholelithiasis. Gallbladder wall thickening, and mild pericholecystic fluid. Minimal ascites around the liver. Possible intrarenal calculus right kidney without hydronephrosis. MTDD
--- NOTE | 2020-01-05 15:17 | CR ---
DATE OF CONSULTATION: 12/26/2019 REQUESTING PHYSICIAN: Eleonora Tomlin MD REASON FOR CONSULTATION: Management of acute renal failure and severe metabolic acidosis. CHIEF COMPLAINT: Patient was transferred from outside hospital because of acute renal failure, hyperkalemia, and metabolic acidosis. HISTORY OF PRESENT ILLNESS: Lakisha Abrams is a 74-year-old female with a past medical history of hypertension, baseline chronic kidney disease stage 3, history of bilateral kidney stones, recently admitted at [facility] about a month ago with shock and acute renal failure. At that time, she was treated for possible acute pyelonephritis on the left side with I.V. antibiotics and Levophed. Cultures never came back positive, however, she improved after the treatment and again she presented to the [facility] [place] Emergency Room yesterday with abdominal pain, nausea, vomiting and feeling weak and tired. She was hypotensive on arrival in the Emergency Room. She was found to have a creatinine of 13.1 and BUN of more than 100. Patient was discussed with myself and the Emergency Room physician at [facility]. The decision was made to give her first dose of I.V. antibiotics including Vancomycin and Zosyn. We gave her 30 mL/kg of I.V. fluid bolus and start her on Levophed as needed, and transfer her to the Emergency Room at [facility]. She was ultimately transferred after initial resuscitation and finally admitted under the hospitalist service last night to the ICU. I again discussed the patient with the admitting physician last night as well. She was continued on I.V. fluids bicarb containing. She was also given an amp of bicarb as well because of severe acidosis. She was given I.V. Zosyn. Nephrology service saw the patient today morning. Patient is oriented x1 to 2. She is a poor historian; most of the history was obtained from the medical team and from patient's chart, however, patient did deny having a lot of diarrhea from the ostomy bag. She denies any fevers or chills. PAST MEDICAL HISTORY: Acute renal failure recently it was about a month ago and she was admitted to the ICU at [facility], history of bilateral renal stones and pyelonephritis, ulcerative colitis; status post ileostomy, hyperlipidemia, hypertension, baseline chronic kidney disease stage 3, gastroesophageal reflux disease and depression. PAST SURGICAL HISTORY: Status post colectomy, ileostomy status, history of right-sided nephrolithotripsy and stenting in May 2016. ALLERGIES: No known drug allergies. FAMILY HISTORY: No significant family history of end-stage renal disease requiring hemodialysis in the family members. SOCIAL HISTORY: Patient lives at home. She is an ex-smoker. She denies any illicit drug abuse or alcohol abuse. REVIEW OF SYSTEMS: CONSTITUTIONAL: Patient reports feeling very weak and tired. She denies any fevers or chills. EYES: She denies any blurry vision or double vision. ENT: Denies any dysphagia or odynophagia. CARDIOVASCULAR: She denies any chest pain or palpitations. RESPIRATORY: She denies any shortness of breath. GASTROINTESTINAL: She reports nausea, vomiting and abdominal pain. She is not clear about any diarrhea in the right lower quadrant ileostomy. GENITOURINARY: She reports decreased urine output. MUSCULOSKELETAL: She reports muscle weakness. SKIN: She denies any rashes or ulcers. HEMATOLOGIC/ONCOLOGIC: She denies any easy bleeding or bruising. 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 She does report weakness. All other review of systems is negative. PHYSICAL EXAMINATION: GENERAL: Patient is awake and oriented x2, lying in bed. VITAL SIGNS: Temperature 97.8 degrees Fahrenheit, blood pressure 104/51, pulse 67, respiratory rate 16, saturating 98% on room air. HEAD & NECK: Extraocular muscles intact. Pupils equal, round, reactive to light. Mucous membranes are moist. Neck is supple. There is no JVD. She has a left- sided subclavian triple lumen catheter. CARDIOVASCULAR: S1, S2. Regular rate. No edema of the bilateral lower extremities. RESPIRATORY: Chest clear to auscultation bilaterally. Good air entry. No rales or rhonchi. ABDOMEN: Soft, positive bowel sounds. Right lower quadrant ileostomy is noted. GENITOURINARY: She has an indwelling Renee catheter. MUSCULOSKELETAL: No clubbing or cyanosis. Pulses are 2+. 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 PSYCHOLOGIC: Patient has a depressed mood. LYMPH NODES: No significant cervical or axillary lymphadenopathy. LABORATORY REVIEW: CBC showed WBC 6.8, hemoglobin 9, platelet count 192,000. Urinalysis done yesterday showed 2+ blood and 36 rbc, wbc were only 1. ABG done last night showed pH 7.03, pCO2 26, pO2 164, bicarb 7, O2 sat 99%. BMP done on arrival showed sodium 135, potassium 6.5, chloride 111, bicarb 10, BUN 95, creatinine 10.9. Lactic acid 0.8. Calcium 7.5. Ammonia 37. Albumin 3.1. Lipase 1,299. Repeat BMP today morning showed sodium 138, potassium 4.7, chloride 116, bicarb 15, BUN 89, creatinine 8.7, glucose 159, calcium 7.8. Microbiology cultures are pending. IMAGING DATA: A chest x-ray was done, which did not show any acute pathology. A CAT scan of the abdomen and pelvis was done, which showed non-obstructing bilateral renal calculi, no ureteral calculi was seen. There is cholelithiasis and she is status post colectomy with right lower quadrant ileostomy. CURRENT INPATIENT MEDICATIONS: Patient's medications were all reviewed by myself. She got a dose of calcium gluconate. She was initially started on Rocephin, however, she was switched to Zosyn 2.25 grams I.V. every 8 hours. She got normal saline bolus and she was having D5W with 150 mEq of bicarb at 150 an hour. I have changed the I.V. fluid to half normal saline plus 75 mEq of bicarb at 125 cc an hour. She was given a dose of Kayexalate p.o. last night. ASSESSMENT: A 74-year-old female with history of bilateral renal calculi, history of baseline CKD 3, ileostomy status, admitted this time with acute renal failure, hyperkalemia and severe metabolic acidosis. PLAN: 1. Acute renal failure: It is secondary to shock, dehydration, volume depletion. Patient is getting I.V. fluid hydration. She has an adequate urine output. She is making around 150 cc an hour of urine. Continue bicarb. Continue fluids. Renal function is improving, no need for hemodialysis at this time. 2. Hyperkalemia: It is secondary to acute renal failure and severe metabolic acidosis. With the bicarb containing fluids, her potassium level is improved to 4.7. 3. High anion gap metabolic acidosis: It is secondary to dehydration, volume depletion, shock, acute renal failure most likely and diarrhea in the ileostomy as well. Continue bicarb containing fluid. Anion gap has normalized and bicarb level is also getting better. 4. Bilateral nephrolithiasis: Patients urinalysis does not show any evidence of UTI at this time, however, she was empirically treated for pyelonephritis last time as well and she responded well. Continue the empiric antibiotics at this time. 5. Shock: Patient did not have a lactate, but she did come in with acute renal failure and hypotension, requiring Levophed. Continue the Levophed at this time. It is slowly being weaned off. Continue current I.V. antibiotics and I.V. fluids. Thank you for involving me in the care of this patient. I shall be happy to follow the patient along with you tomorrow morning. Total critical care time spent in the management of this patient today morning in the ICU excluding all the procedures was 1 hour and 30 minutes. TIA
--- NOTE | 2020-01-21 09:36 | ECGEPIP ---
[facility] - ED Test Date: 2019-12-25 Pat Name: JENNIFER WORKMAN Department: Room: - Gender: Female Rn Sexual Assault: ana : 1945 Requested By: SANTIAGO King Order Number: [id number] Reading MD: Kathya Hutchison Measurements Intervals [place] Rate: 86 P: 51 IA: 171 QRS: 42 QRSD: 123 T: -6 QT: 386 QTc: 462 Interpretive Statements SINUS RHYTHM INFERIOR MYOCARDIAL INFARCTION, OF INDETERMINATE AGE ABNORMAL ECG SEE DOWNTIME SCANNED RECORD
--- NOTE | 2020-01-21 10:57 | IPN ---
DATE: 12/27/2019 SUBJECTIVE: Mrs. Abrams is seen this morning at her bedside in Intensive Care Unit. She is feeling better, but still weak. She has been receiving intravenous sodium bicarbonate drip. Her colostomy is functioning. She denies any dyspnea or chest pain. She reports that she had some fluid this morning and threw up right away. PHYSICAL EXAMINATION: Temperature 98.6 degrees Fahrenheit, heart rate 60 per minute, respiratory rate 16 per minute, blood pressure 135/62 mmHg and oxygen saturation 93% on room air. Head is atraumatic. Neck is supple and without JVD or thyroid enlargement. Heart sounds are regular. Lungs sound clear to auscultation bilaterally. Abdomen is soft and her colostomy is functioning in right lower quadrant. Bowel sounds are normal. Extremities have no cyanosis or clubbing. There is no peripheral edema. Neurologically, she is awake, alert and oriented x3. LABORATORY DATA: Todays labs: WBC 5.6, hemoglobin 7.8, hematocrit 23.8. Sodium 144, potassium 3.9, chloride 113, CO2 27, BUN 62, creatinine 2.82. Calcium 7.5. Iron level 113. Saturation 58%. Albumin 2.6. PROBLEMS: 1. Acute renal failure superimposed on chronic kidney disease: She had acute renal failure and kidney function has improved significantly during the last 24 hours with I.V. fluid hydration. Will cut down the I.V. fluid right now. She is still not tolerating oral intake very well. 2. Metabolic acidosis: Acidosis has corrected and sodium bicarbonate infusion is being stopped. I am starting her on half normal saline with some potassium chloride 20 mEq at 80 mL per hour. 3. Anemia: Most likely related to acute and chronic kidney disease. Her iron studies are adequate. She will given one dose of Aranesp 100 mcg tomorrow. MTDD
--- NOTE | 2020-01-21 11:03 | IPN ---
DATE: 12/28/2019 SUBJECTIVE: Mrs. Abrams is seen this morning at her bedside. She is feeling better today and reports that she is eating and drinking well without any vomiting. She has no dyspnea or chest pain. Overall, she is feeling much better. PHYSICAL EXAMINATION: Temperature 99 degrees Fahrenheit, heart rate 70 per minute, respiratory rate 18 per minute, blood pressure 162/72 mmHg and oxygen saturation 96% on room air. Head is atraumatic. Neck is supple and without JVD or thyroid enlargement. Heart sounds are regular. Lungs sound clear to auscultation. Abdomen is soft and nontender. Bowel sounds are present. Her colostomy is functioning. Extremities have no cyanosis or clubbing. Neurologically, she is awake, alert and oriented x3. LABORATORY DATA: Todays labs: WBC 6.0, hemoglobin 7.8, hematocrit 23.5, platelets 154,000. Sodium 145, potassium 4.3, CO2 28, BUN 39, creatinine 1.27. Calcium now 7.8. PROBLEMS: 1. Acute renal failure superimposed on chronic kidney disease: Patient had significant improvement in kidney function. Her oral intake is now adequate and she is tolerating it well. I am going to stop her I.V. fluid. Her Renee catheter can also be removed. 2. Metabolic acidosis: Her acidosis has completely corrected and she does not need any bicarb at this point. 3. Anemia: Her anemia is significant and iron studies are appropriate. She was given Aranesp 100 mcg tomorrow. All other issues are being addressed by hospitalist service. TIA
--- NOTE | 2020-01-21 11:17 | IPN ---
DATE: 12/29/2019 SUBJECTIVE: Mrs. Abrams is seen this morning at her bedside. She is feeling well and denies any nausea, vomiting, dyspnea or chest pain. She is still not on a regular diet and reports that she has been eating mostly fruit but she is also eating corn chips from the outside that her son brought. Her colostomy has been functioning. PHYSICAL EXAMINATION: VITAL SIGNS: Temperature 99.0 degrees Fahrenheit, heart rate is 78 per minute and respiratory rate 20 per minute, blood pressure 135/68 mmHg and oxygen saturation 93%. HEENT: Head is atraumatic. Neck is supple and without JVD or thyroid enlargement. HEART: Heart sounds are regular. LUNGS: Clear to auscultation. ABDOMEN: Soft and nontender. Colostomy is functioning. EXTREMITIES: Without any cyanosis or clubbing. NEUROLOGIC: She is awake, alert and oriented x3. LABORATORY DATA: Todays labs showed a WBC count of 6.5, hemoglobin 9.0 and hematocrit 28.3. Platelets 185,000. Her chemistries are still pending. PROBLEMS: 1. Acute kidney injury superimposed on chronic kidney disease. Kidney function has improved significantly since admission. Her creatinine was 10.9 on admission and yesterday it was down to 1.27. Todays labs are still pending. 2. Anemia, her anemia is improved since yesterday. She did not need any transfusion. We have given her a dose of Aranesp. This can be followed up as an outpatient. 3. Disposition from a renal standpoint: Her diet can be advanced and she can be discharged to home and follow-up as an outpatient. TIA
--- NOTE | 2020-02-12 15:11 | RO ---
DATE OF OPERATION: 12/26/2019 PREOPERATIVE DIAGNOSIS: Hypotension. POSTOPERATIVE DIAGNOSIS: Hypotension. PROCEDURE: Left subclavian central venous pressure (CVP) placement. SURGEON: Franko Meade MD PROCEDURE NOTE: The patient was seen in the intensive care unit hypotensive requiring pressors. The procedure was reviewed with the patient as well as all possible complications pertaining there to including, but not limited to, bleeding, infection, medication reaction and lung collapse. Informed consent was obtained and placed on the chart. The patient was then placed in the supine position. The skin overlying the left subclavian vein was prepped with ChloraPrep and draped in a sterile fashion. A 25-gauge needle was used to raise a skin wheal of 1% lidocaine. Thereafter, a 17-gauge introducer was needle was placed in through the skin and into the left subclavian vein. Free return of venous blood was obtained. A vascular set guidewire was advanced. A small incision was made adjacent to the guidewire and the triple lumen catheter placed over the guidewire to a distance of 18 cm. The wire was removed, the catheter was flushed and then sewn in place using a 3-0 silk suture on a straight needle. A sterile dressing was applied and a post- procedural chest x-ray confirmed adequate placement of the catheter. There were no apparent complications. [facility]OSPITALChristine
== END 2019-12-30 11:07 | disposition home or self-care (01) | DRG 871 ==
LOC: M ED 20:03 → M ED INP 22:03 → M ICU 12-26 00:10 → M MSPAV 12-28 13:51
PROVIDERS: ADMIT Internal Medicine Nephrology; ATTEND Internal Medicine
DX: A41.9 Sepsis, unspecified organism (principal); R65.21 Severe sepsis with septic shock; K85.90 Acute pancreatitis without necrosis or infection, unspecified; N17.9 Acute kidney failure, unspecified; E87.2 Acidosis; E87.5 Hyperkalemia; I12.9 Hypertensive chronic kidney disease with stage 1 through stage 4 chronic kidney disease, or unspecified chronic kidney disease; N18.3 Chronic kidney disease, stage 3 (moderate); F32.9 Major depressive disorder, single episode, unspecified; E79.0 Hyperuricemia without signs of inflammatory arthritis and tophaceous disease; K80.20 Calculus of gallbladder without cholecystitis without obstruction; E78.5 Hyperlipidemia, unspecified; D64.9 Anemia, unspecified; K21.9 Gastro-esophageal reflux disease without esophagitis; Z87.442 Personal history of urinary calculi; Z93.2 Ileostomy status; Z79.899 Other long term (current) drug therapy; Z87.891 Personal history of nicotine dependence; Z90.49 Acquired absence of other specified parts of digestive tract

== ENCOUNTER 2020-01-11 11:32 | Inpatient (IN) | payer MEDICARE ==
[~2020-01-11] VITALS: Ht 162.6 cm; Wt 61.5 kg
[2020-01-11] VITALS (14 sets, daily range): BP systolic 64–109; BP diastolic 38–58
[2020-01-11] MEDS ORDERED: LIDOCAINE 2% 5ML JELLY UROJET TOP ONE ×2 (12:00→13:30)
[2020-01-11] MEDS ORDERED: NS 1,000 ML IV ONE (12:00)
[2020-01-11] MEDS ORDERED: DEXTROSE 50% 50 ML VIAL IV STA (12:34)
[2020-01-11] MEDS ORDERED: SODIUM BICARBONATE 8.4% INJ 50 ML SYRINGE IV STA (12:37)
[2020-01-11 12:45] LABS: BASO % 0.1 % (0.0-1.0); HEMATOCRIT 45.2 % (36.0-47.0); HEMOGLOBIN 14.3 g/dl (12.0-15.5); LYMPH # 0.2 10^3/uL (1.5-5.0); LYMPH % 1.5 % (24.0-44.0); MEAN CORPUSCULAR HEMOGLOBIN 29.9 pg (27.0-33.0); MEAN CORPUSCULAR HGB CONC 31.6 g/dl (32.0-36.5); MEAN CORPUSCULAR VOLUME 94.4 fl (80.0-96.0); MONO # 0.2 10^3/uL (0.0-0.8); NEUTROPHILS # 10.7 10^3/uL (1.5-8.5); NEUTROPHILS % 95.5 % (36.0-66.0); PLATELET COUNT, AUTOMATED 360 10^3/uL (150-450); RED BLOOD COUNT 4.79 10^6/uL (4.00-5.40); WHITE BLOOD COUNT 11.2 10^3/uL (4.0-10.0)
[2020-01-11] MEDS ORDERED: ALBUTEROL SULFATE 2.5 MG/0.5 ML INH NEB SOLN INH ONE (12:45)
[2020-01-11] MEDS ORDERED: IPRATROPIUM 0.5MG/ALBUTEROL 2.5MG INH SOL UD 3ML (DUONEB) NEB PRN (12:45)
[2020-01-11] MEDS ORDERED: CALCIUM GLUCONATE 1,000 MG in D5W MINI-BAG PLUS 100 ML IV ONE (12:45)
[2020-01-11] MEDS ORDERED: HumuLIN R (REGULAR) INSULIN (NovoLIN R) **100U/ML** PER UNIT IV ONE ×2 (12:45→19:45)
[2020-01-11 13:25] LABS: ALBUMIN 4.8 GM/DL (3.2-5.2); ALT/SGPT 11 U/L (12-78); AMYLASE 328 U/L (25-115); BILIRUBIN,DIRECT 0.2 MG/DL (0.0-0.2); BILIRUBIN,TOTAL 0.7 MG/DL (0.2-1.0); BLOOD UREA NITROGEN 121 MG/DL (7-18); CALCIUM LEVEL 9.8 MG/DL (8.8-10.2); CARBON DIOXIDE LEVEL 9 MEQ/L (21-32); CHLORIDE LEVEL 93 MEQ/L (98-107); CK-MB VALUE MASS 1.5 NG/ML (<3.6); CPK CREATINE PHOSPHOKINASE 45 U/L (26-192); FREE T4 1.19 NG/DL (0.76-1.46); GLOMERULAR FILTRATION RATE 1.9 (>39); GLUCOSE, FASTING 163 MG/DL (70-100); LIPASE 415 U/L (73-393); MB/CK RELATIVE INDEX 3.33 (< OR =4); POTASSIUM SERUM 7.7 MEQ/L (3.5-5.1); SODIUM LEVEL 127 MEQ/L (136-145); THYROID STIMULATING HORMONE 0.731 uIU/ML (0.358-3.740); TOTAL PROTEIN 9.1 GM/DL (6.4-8.2); TROPONIN I < 0.02 NG/ML (< 0.10)
--- NOTE | 2020-01-11 13:37 | REPVR ---
PROCEDURE INFORMATION: Exam: XR Chest, 1 View Exam date and time: 01/11/2020 1:09 PM Age: 74 years old Clinical indication: Other: Weakness TECHNIQUE: Imaging protocol: XR of the chest Views: 1 view. COMPARISON: CR Chest, 1 view 12/26/2019 12:52 AM FINDINGS: Lungs: No consolidation. Pleural space: No pleural effusion. No pneumothorax. Heart/Mediastinum: No cardiomegaly. Bones/joints: There are degenerative changes of the spine. There is a incidental cartilaginous lesion with the proximal left humerus. IMPRESSION: 1. There is no evidence of active pulmonary disease. 2. A followup PA and lateral radiograph is recommended when the patient is clinically able. Electronically signed by: José Pearl On 01/11/2020 13:36:40 PM
[2020-01-11] MEDS ORDERED: NS 750 ML IV ONE (14:45)
[2020-01-11] MEDS ORDERED: MOM 30ML SUSPENSION UDC PO PRN (15:30)
[2020-01-11] MEDS ORDERED: ALLO100T PO (15:38)
[2020-01-11] MEDS ORDERED: ONDA4TAB6 PO (15:38)
[2020-01-11 15:46] LABS: ACETAMINOPHEN LEVEL < 2.0 UG/ML (10.0-30.0); ETHYL ALCOHOL (ETHANOL) < 0.003 % (0.000-0.010); SALICYLATE LEVEL < 1.7 MG/DL (5.0-30.0)
[2020-01-11] MEDS ORDERED: cefTRIAXone SOD 1 GM in D5W MINI-BAG PLUS 50 ML IV ONE (16:00)
[2020-01-11] MEDS ORDERED: SOD POLYSTYRENE SULFONATE SUSP 15 GM/60 ML UD PO ONE (16:00)
[2020-01-11] MEDS ORDERED: NS 1,000 ML IV SCH (16:00)
--- NOTE | 2020-01-11 16:14 | REPVR ---
PROCEDURE INFORMATION: Exam: CT Chest Without Contrast Exam date and time: 01/11/2020 3:34 PM Age: 74 years old Clinical indication: Pain; Other: Per hospitalist - acutre renal failure TECHNIQUE: Imaging protocol: Computed tomography of the chest without contrast. Radiation optimization: All CT scans at this facility use at least one of these dose optimization techniques: automated exposure control; mA and/or kV adjustment per patient size (includes targeted exams where dose is matched to clinical indication); or iterative reconstruction. COMPARISON: CR Chest, 1 view 01/11/2020 1:05 PM FINDINGS: Thyroid: The thyroid is slightly enlarged and heterogeneous. Lungs: There is minimal basilar atelectasis. Pleural space: No pneumothorax. No pleural effusion. Heart: No cardiomegaly. No pericardial effusion. Aorta: There is atherosclerotic disease of the thoracic aorta without aneurysmal dilatation. Lymph nodes: No enlarged lymph nodes. Bones/joints: There are degenerative changes throughout the spine Soft tissues: Unremarkable. IMPRESSION: No specific acute intrathoracic abnormality. Electronically signed by: José Pearl On 01/11/2020 16:14:36 PM
--- NOTE | 2020-01-11 16:21 | REPVR ---
PROCEDURE INFORMATION: Exam: CT Abdomen And Pelvis Without Contrast Exam date and time: 01/11/2020 3:34 PM Age: 74 years old Clinical indication: Pain; Other: Per hospitalist - acutre renal failure TECHNIQUE: Imaging protocol: Computed tomography of the abdomen and pelvis without contrast. Radiation optimization: All CT scans at this facility use at least one of these dose optimization techniques: automated exposure control; mA and/or kV adjustment per patient size (includes targeted exams where dose is matched to clinical indication); or iterative reconstruction. COMPARISON: CT ABD PELVIS W/O CONTRAST 12/25/2019 9:32 PM FINDINGS: Liver: Normal. No mass. Gallbladder and bile ducts: There are multiple gallstones. Pancreas: Normal. No ductal dilation. Spleen: Normal. No splenomegaly. Adrenals: Normal. No mass. Kidneys and ureters: There are bilateral nonobstructing renal calculi. The largest on the left is in the upper pole and measures 12 mm. Stomach and bowel: There are operative changes from a colectomy with a right ostium. Appendix: No evidence of appendicitis. Intraperitoneal space: No free air. No significant fluid collection. Vasculature: No abdominal aortic aneurysm. Lymph nodes: No enlarged lymph nodes. Bladder: There is a Renee catheter in the decompressed bladder. Reproductive: Unremarkable as visualized. Bones/joints: There are degenerative changes of the spine. Soft tissues: Unremarkable. IMPRESSION: 1. Gallstones. 2. Bilateral renal calculi. 3. Status post colectomy with right ostomy. No bowel dilatation. Electronically signed by: José Pearl On 01/11/2020 16:21:11 PM
--- NOTE | 2020-01-11 16:26 | HPEPDOC ---
[facility] Medical History & Physical Date of Admission Jan 11, 2020 Date of Service: Jan 11, 2020 Attending Physician: A History and Physical CHIEF COMPLAINT: fatigue, anorexia HISTORY OF PRESENT ILLNESS: 74 yo F with a hx of ulcerative colitis (w/ R-sided ileostomy, s/p colectomy), HTN, HLD, CKD III, nephrolithiasis and depression. She has a history of frequent admissions to [facility] for acute renal failure, hyperkalemia and shock. She was admitted last in 12/2019, and twice in 11/2019 with similar presentations. Today, she presents with a 2 week history of fatigue, and intability to tolerate PO food or hydration. On arrival to ED, she was normotensive. She reports normal output through her stoma other than slightly water consistency. She denies fevers, chills, n/v/d, chest pain, abdominal pain or back pain. PAST MEDICAL HISTORY: 1, Ulcerative colitis 2. HTN 3. CKD Stage III 4. Nephrolithiasis 5. Depression PAST SURGICAL HISTORY: 1. Colectomy with R sided ileostomy SOCIAL HISTORY: States that she lives with her son. 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 ALLERGIES: Please see below. REVIEW OF SYSTEMS: CONSTITUTIONAL: fatigue, malaise, generalized weakness HEENT: no blurry vision. CARDIOVASCULAR: denies chest pain, palpitations, shortness of breath. RESPIRATORY: denies shortness of breath, cough, wheeze. GASTROINTESTINAL: reports nausea and vomiting. denies abdominal pain. No blood in vomitus. GENITOURINARY: denies dysuria. SKIN: . none MUSCULOSKELETAL: reports bilateral knee pain. NEUROLOGICAL: denies focal weakness, seizures. PSYCHIATRIC: denies suicidality, low mood. HEMATOLOGIC/LYMPHATIC: denies easy bruising HOME MEDICATIONS: Please see below. PHYSICAL EXAMINATION: VITAL SIGNS: see below please GENERAL APPEARANCE: fatigued. HEENT: dry mucous membranes, PERRLA. CARDIOVASCULAR: RRR, normal S1, S2. LUNGS: lungs CTAB. ABDOMEN: soft, non tender, non distended. R ileostomy. Stoma bag attached. MUSCULOSKELETAL: no obvious joint deformity. no knee effusions EXTREMITIES: no edema. NEUROLOGICAL: no focal neuro deficits, CN2-12 intact. PSYCHIATRIC: calm, cooperative, pleasant. LABORATORY DATA: See below. IMAGING: CT chest, abdo, pelvis pending MICROBIOLOGY: Please see below. ASSESSMENT: 74 yo F with a hx of ulcerative colitis (w/ R-sided ileostomy, s/p colectomy), HTN, HLD, CKD III, nephrolithiasis and depression. Admitted to ICU with acute renal failure with hyperkalemia secondary to dehydration. PLAN: Acute Renal Failure - likely due to hypovolemia from poor PO intake - patient on allopurinol at home, previously lisinopril (was DC on last admission) - Cr 19. BUN 121. AG 25. - continue with IVF hydration - check CK - nephrology consult, Dr. Aquino aware. Metabolic Anion Gap Acidosis - hypovolemia, renal failure - pH 7.22. AG 19 - bicarb drip Hyperkalemia - K 7.2 on arrival with EKG changes - given calcium gluconate, albuterol, 6 units of Regular insulin with D50 - repeat K+ in ED 6.2 - give 30 ml kayexalate - trend BMP Lactic acidosis - due to hypovolemia - c/w IVF, repeat - check ABG. Elevated lipase/amylase - physical findings not c/w pancreatitis - elevated due to acute renal failure Hyponatremia - NA 127 - IVF with NS - trend BMP UTI - UA positive for blood, LE ,yeast like cells. - UCx, BCx sent - empiric ceftriaxone Hyperlipidemia - continue statin GI ppx: PPI DVT ppx: heparin, avoid lovenox in setting of ARF. TEDs. Cultures 01/11/20 - Urine: pending - Blood: pending Vital Signs Vital Signs Date Time Temp Pulse Resp B/P (MAP) Pulse Ox O2 Delivery O2 Flow Rate FiO2 01/11/20 15:30 101/50 (67) 01/11/20 11:47 96.7 82 16 98 Room Air Laboratory Data Labs 24H Laboratory Tests 2 01/11/20 12:22: Immature Granulocyte % (Auto) 0.9, Neutrophils (%) (Auto) 95.5H, Lymphocytes (%) (Auto) 1.5L, Monocytes (%) (Auto) 2.0, Eosinophils (%) (Auto) 0.0, Basophils (%) (Auto) 0.1, Neutrophils # (Auto) 10.7H, Lymphocytes # (Auto) 0.2L, Monocytes # (Auto) 0.2, Eosinophils # (Auto) 0.0, Basophils # (Auto) 0.0, Nucleated Red Blood Cells % (auto) 0.0, Anion Gap 25H, Glomerular Filtration Rate 1.9L, Lactic Acid Level 3.3*H, Calcium Level 9.8, Total Bilirubin 0.7, Direct Bilirubin 0.2, Aspartate Amino Transf (AST/SGOT) 7, Alanine Aminotransferase (ALT/SGPT) 11L, Alkaline Phosphatase 96, Total Creatine Kinase 45, Creatine Kinase MB 1.5, Creatine Kinase MB Relative Index 3.33, Troponin I < 0.02, Total Protein 9.1H, Albumin 4.8, Albumin/Globulin Ratio 1.1L, Amylase Level 328H, Lipase 415H, Thyroid Stimulating Hormone (TSH) 0.731, Free Thyroxine 1.19, Salicylates Level < 1.7L, Acetaminophen Level < 2.0L, Ethyl Alcohol Level < 0.003 01/11/20 14:41: Urine Color YELLOW, Urine Appearance TURBIDH, Urine pH 5.0, Urine Specific [place] 1.021, Urine Protein 1+H, Urine Glucose (UA) NEGATIVE, Urine Ketones TRACEH, Urine Blood 2+H, Urine Nitrite NEGATIVE, Urine Bilirubin 1+H, Urine Urobilinogen 0.2, Urine Leukocyte Esterase 2+H, Urine WBC (Auto) TNTCH, Urine RBC (Auto) 43H, Urine Hyaline Casts (Auto) 0, Urine Bacteria (Auto) NEGATIVE, Urine Squamous Epithelial Cells 0, Urine Yeast-Like Cells (Auto) LARGEH, Urine S perm (Auto) CBC/BMP Laboratory Tests 01/11/20 12:22 Microbiology Microbiology 01/11/20 Urine Culture, Received Pending 01/11/20 Blood Culture, Received Pending 01/11/20 Blood Culture, Received Pending Home Medications Scheduled Allopurinol (Allopurinol) 100 Mg Tablet, 100 MG PO QHS Amlodipine Besylate (Amlodipine Besylate) 5 Mg Tablet, 5 MG PO DAILY Atorvastatin Calcium (Atorvastatin Calcium) 10 Mg Tablet, 10 MG PO QHS Fluoxetine HCl (Prozac) 40 Mg Cap, 40 MG PO DAILY Pantoprazole Sodium (Pantoprazole Sodium) 40 Mg Tablet.dr, 40 MG PO BID Scheduled PRN Ondansetron (Ondansetron Odt) 4 Mg Tab.rapdis, 4 MG PO Q8H PRN for NAUSEA OR VOMITING Allergies Coded Allergies: No Known Allergies (Unverified , 01/11/20) A-FIB/CHADSVASC A-FIB History Current/History of A-Fib/PAF?: No Current PO Anticoag Therapy: No SCOTTY POPE MD Jan 11, 2020 16:26
[2020-01-11] MEDS: ONDANSETRON 4 MG ORAL DISINTEGRATING TAB PO PRN (17:11)
[2020-01-11 17:59] LABS: ABG BASE EXCESS -15.1 (-2.0-2.0); ABG O2 SATURATION 97.2 % (95.0-99.0); ABG PARTIAL PRESSURE CO2 27.1 mmHg (35.0-45.0); ABG PARTIAL PRESSURE O2 100.1 mmHg (75.0-100.0); ABG TOTAL CO2 11.8 MEQ/L (23.0-31.0); ABG pH (ARTERIAL) 7.225 UNITS (7.350-7.450)
[2020-01-11 19:09] LABS: CALCIUM LEVEL 8.5 MG/DL (8.8-10.2); CREATININE FOR GFR 17.3 MG/DL (0.55-1.30); GLOMERULAR FILTRATION RATE 2.2 (>39); MAGNESIUM LEVEL 2.2 MG/DL (1.8-2.4); POTASSIUM SERUM 6.1 MEQ/L (3.5-5.1)
[2020-01-11 19:31] LABS: PHOSPHORUS LEVEL 8.7 MG/DL (2.5-4.9)
[2020-01-11] MEDS ORDERED: DEXTROSE 50% 50 ML SYRINGE IV STA (19:37)
[2020-01-11] MEDS ORDERED: ALBUTEROL SULFATE 2.5 MG/0.5 ML INH NEB SOLN NEB ONE (19:45)
[2020-01-11] MEDS: SODIUM BICARBONATE 75 MEQ in NS 0.45% 1,000 ML IV SCH (20:16)
[2020-01-11] MEDS ORDERED: allopurinoL 100 MG TAB PO SCH (21:00)
[2020-01-11] MEDS: DOCUSATE SODIUM 100 MG CAP PO SCH (21:00)
[2020-01-11] MEDS ORDERED: PANTOPRAZOLE 40MG TAB (PROTONIX) PO SCH (21:00)
[2020-01-11] MEDS ORDERED: NOREPINEPHRINE BITARTRATE 8 MG in D5W 492 ML IV SCH (21:45)
[2020-01-11] MEDS ORDERED: NOREPINEPHRINE 4 MG/4 ML AMP As Ordered ONE (21:46)
--- NOTE | 2020-01-11 21:51 | IPNPDOC ---
Text Note Date of Service The patient was seen on 01/11/20. NOTE 940PM Was informed that the patient appeared to be in RVR on the telemonitor and her MAP dropped below 60. She has received over 2.5L of fluid and has not produced urine At the time of my eval the patient denied having dyspnea, dizziness or chest pain. She agreed to starting AC for Afib. PE HR 138, MAP 52, RR 18, O2 98% T 98.6 NAD A&O x3 extremities cool EKG showed rapid Afib w a rate of 130 #New onset afib most likely cause idiopathic vs CAD vs cardiomyopathy vs PE unlikely sepsis K elevated Trop, Mag and TSH wnl CHADSVASC 2 score based on current hx of HTN, gender and age is 5 Well's pretest score is 3 points = moderate risk Plan: rate control w digoxin / AC w Heparin drip / f/u serial trops & check D- dimer to determine if we need to order CTA to r/o EP # Shock Possibly cardiogenic shock vs unlikely septic shock bc pt doesn't meet SIRS criteria Plan: start levophed & increase rate of IVF / f/u Echo in AM / consult for co-management VS,Fishbone, I+O VS, Fishbone, I+O Laboratory Tests 01/11/20 12:22 01/11/20 18:17 Vital Signs Date Time Temp Pulse Resp B/P (MAP) Pulse Ox O2 Delivery O2 Flow Rate FiO2 01/11/20 17:24 99.0 85 17 104/51 (68) 98 Room Air JOHN QUINN MD Jan 11, 2020 21:51
[2020-01-11] MEDS ORDERED: AMIODARONE HCL 150 MG in IV 1 EA IV ONE (22:00)
[2020-01-11] MEDS ORDERED: HEPARIN SOD (PORCINE) 5000UNITS/ML 1ML VIAL/SYRINGE SQ SCH (22:00)
[2020-01-11 22:26] LABS: BLOOD UREA NITROGEN 116 MG/DL (7-18); CALCIUM LEVEL 8.3 MG/DL (8.8-10.2); CARBON DIOXIDE LEVEL 13 MEQ/L (21-32); CHLORIDE LEVEL 103 MEQ/L (98-107); GLOMERULAR FILTRATION RATE 2.1 (>39); GLUCOSE, FASTING 227 MG/DL (70-100); SODIUM LEVEL 135 MEQ/L (136-145); TROPONIN I < 0.02 NG/ML (< 0.10)
[2020-01-11] MEDS: ATORVASTATIN 10 MG TAB PO SCH (22:37)
[2020-01-11] MEDS ORDERED: AMIODARONE HCL 360 MG in IV 1 EA IV SCH (23:49)
[2020-01-12] VITALS (46 sets, daily range): BP systolic 80–121; BP diastolic 37–58
[2020-01-12] MEDS ORDERED: NS 500 ML IV ONE
--- NOTE | 2020-01-12 00:05 | REPVR ---
PROCEDURE INFORMATION: Exam: XR Chest, 1 View Exam date and time: 01/11/2020 11:53 PM Age: 74 years old Clinical indication: Other vascular access device placement or adjustment; Other: Tlc placement; Additional info: S/P tlc placement TECHNIQUE: Imaging protocol: XR of the chest Views: 1 view. COMPARISON: CT Chest without contrast 01/11/2020 3:30 PM FINDINGS: Tubes, catheters and devices: Right subclavian central line to the distal superior vena cava. Lungs: Unremarkable. No consolidation. Pleural space: Unremarkable. No pleural effusion. No pneumothorax. Heart/Mediastinum: Unremarkable. No cardiomegaly. Bones/joints: Unremarkable. IMPRESSION: 1. Right subclavian central line to the distal superior vena cava. No pneumothorax. 2. Otherwise negative chest. Electronically signed by: Leeroy Smith On 01/12/2020 00:05:02 AM
[2020-01-12] MEDS ORDERED: HEPARIN SOD (PORCINE) 5000UNITS/ML 1ML VIAL/SYRINGE IV PRN (00:45)
[2020-01-12] MEDS: HEPARIN DRIP 25,000 UNITS in IV 1 EA IV SCH (01:17)
[2020-01-12 01:23] LABS: INR 1.29; PARTIAL THROMBOPLASTIN TIME 26.9 SECONDS (25.0-38.4); PROTHROMBIN TIME 16.3 SECONDS (11.8-14.0)
[2020-01-12] MEDS: SODIUM BICARBONATE 75 MEQ in NS 0.45% 1,000 ML IV SCH ×4 (01:52→21:58)
[2020-01-12 06:21] LABS: BASO % 0.1 % (0.0-1.0); HEMATOCRIT 28.1 % (36.0-47.0); LYMPH # 1.8 10^3/uL (1.5-5.0); LYMPH % 15.1 % (24.0-44.0); MEAN CORPUSCULAR HEMOGLOBIN 30.5 pg (27.0-33.0); MEAN CORPUSCULAR HGB CONC 33.8 g/dl (32.0-36.5); MEAN CORPUSCULAR VOLUME 90.4 fl (80.0-96.0); MONO # 1.1 10^3/uL (0.0-0.8); MONO % 9.7 % (0.0-5.0); NEUTROPHILS # 8.7 10^3/uL (1.5-8.5); NEUTROPHILS % 74.6 % (36.0-66.0); RED BLOOD COUNT 3.11 10^6/uL (4.00-5.40); WHITE BLOOD COUNT 11.6 10^3/uL (4.0-10.0)
[2020-01-12 06:36] LABS: HEMOGLOBIN 9.5 g/dl (12.0-15.5); PLATELET COUNT, AUTOMATED 226 10^3/uL (150-450)
[2020-01-12 06:46] LABS: COMPLEMENT C3 65 MG/DL (90-180); COMPLEMENT C4 28 MG/DL (10-40)
[2020-01-12 06:57] LABS: ALBUMIN 2.9 GM/DL (3.2-5.2); BILIRUBIN,TOTAL 0.3 MG/DL (0.2-1.0); CALCIUM LEVEL 7.5 MG/DL (8.8-10.2); CREATININE FOR GFR 13.7 MG/DL (0.55-1.30); GLOMERULAR FILTRATION RATE 2.8 (>39); PHOSPHORUS LEVEL 6.9 MG/DL (2.5-4.9); POTASSIUM SERUM 3.9 MEQ/L (3.5-5.1); TOTAL PROTEIN 5.6 GM/DL (6.4-8.2)
[2020-01-12 07:25] LABS: MAGNESIUM LEVEL 1.7 MG/DL (1.8-2.4); TROPONIN I 0.03 NG/ML (< 0.10)
--- NOTE | 2020-01-12 07:41 | IPNPDOC ---
Date Seen The patient was seen on 01/12/20. Progress Note SUBJECTIVE: developed afib with RVR at 9 pm yesterday evening, with hypotension MAP at 60. Was started on amiodarone drip (s/p IV bolus), levophed. ICU consult, CVC catheter was placed. Today denies SOB, chest pain, palpitations, fevers or chills. She has no blurred vision. Making urine overnight and increased this morning, 150 cc over 2 hours this morning. OBJECTIVE PHYSICAL EXAMINATION: VITAL SIGNS: Please see below. GENERAL: NAD. comfortable. HEENT: PERRLA, EOMI CARDIOVASCULAR: RRR, normal S1, S2. RESPIRATORY: lungs CTAB. ABDOMINAL: soft, non tender. R ileostomy, fresh ostomy bag. putting out non bloody bilious stool EXTREMITIES: warm. pules 2+ NEUROLOGICAL: no focal neuro deficit PSYCHOLOGICAL: calm, cooperative LABORATORY DATA, IMAGING STUDIES, MICROBIOLOGY: Please see below. Echocardiogram: echo DVT prophylaxis ordered?: heparin GGT ASSESSMENT: 74 yo F with a hx of ulcerative colitis (w/ R-sided ileostomy, s/p colectomy), HTN, HLD, CKD III, nephrolithiasis and depression. Admitted to ICU with acute renal failure with hyperkalemia secondary to dehydration. On admissio n, developed afib with RVR, subsequent hypotension due to PE vs cardiogenic shock vs hypovolemia. Wells score 3, D-dimer 4000. Given acute renal failure, unable to obtain CTA/PE at this time. Started on AC. V/Q scan once stable. PLAN: Shock - overnight MAP 60 - does not meet SIRS - levophed, IVF - Dr. Meade consulted for CVC and co-management Acute Renal Failure - likely due to hypovolemia from poor PO intake - patient on allopurinol at home, previously lisinopril (was DC on last admissio n) - nephrology consult, Dr. Aquino. - Cr trending down 17.3 -> 13.7. Continue IVF - Phos trending down 8.7 -> 7.5. - No urine overnight Metabolic Anion Gap Acidosis - hypovolemia, renal failure - pH 7.22. AG 19 - bicarb drip New onset Afib with RVR - amiodarone bolus, drip - started heparin GGT overnight - K+ normalized, Mg, TSH, Troponin wnl - Elevated D-dimer, Well's score 3 - given ARF, cannot use IV contrast with CTA - V/Q scan ordered. Hyperkalemia - K 7.2 on arrival with EKG changes, now resolved - given calcium gluconate, albuterol, 6 units of Regular insulin with D50 - repeat K+ in ED 6.2 - give 30 ml kayexalate, additional albuterol, insulin, D50. - K 3.9 Lactic acidosis - LA normalized Elevated lipase/amylase - physical findings not c/w pancreatitis - elevated due to acute renal failure Hyponatremia - NA trending up, 134 - IVF with NS - trend BMP UTI - UA positive for blood, LE ,yeast like cells. - UCx, BCx sent - empiric ceftriaxone Hyperlipidemia - continue statin Depression - home med fluoxetine GI ppx: PPI DVT ppx: started heparin GGT for afib with rvr Cultures 01/11/20 - Urine: pending - Blood: pending Lines: R subclavian 01/11/20. Drips: levophed (01/11/20) VS, I&O, 24H, Fishbone Vital Signs/I&O Vital Signs Date Time Temp Pulse Resp B/P (MAP) Pulse Ox O2 Delivery O2 Flow Rate FiO2 01/12/20 05:58 111/53 01/12/20 05:00 97.9 88 16 98 Room Air I&O- Last 24 Hours up to 6 AM 01/12/20 06:00 Intake Total 4063 ml Output Total 570 ml Balance 3493 ml Laboratory Data 24H LABS Laboratory Tests 2 01/11/20 12:22: Immature Granulocyte % (Auto) 0.9, Neutrophils (%) (Auto) 95.5H, Lymphocytes (%) (Auto) 1.5L, Monocytes (%) (Auto) 2.0, Eosinophils (%) (Auto) 0.0, Basophils (%) (Auto) 0.1, Neutrophils # (Auto) 10.7H, Lymphocytes # (Auto) 0.2L, Monocytes # (Auto) 0.2, Eosinophils # (Auto) 0.0, Basophils # (Auto) 0.0, Nucleated Red Blood Cells % (auto) 0.0, Anion Gap 25H, Glomerular Filtration Rate 1.9L, Lactic Acid Level 3.3*H, Calcium Level 9.8, Total Bilirubin 0.7, Direct Bilirubin 0.2, Aspartate Amino Transf (AST/SGOT) 7, Alanine Aminotransferase (ALT/SGPT) 11L, Alkaline Phosphatase 96, Total Creatine Kinase 45, Creatine Kinase MB 1.5, Creatine Kinase MB Relative Index 3.33, Troponin I < 0.02, Total Protein 9.1H, Albumin 4.8, Albumin/Globulin Ratio 1.1L, Amylase Level 328H, Lipase 415H, Thyroid Stimulating Hormone (TSH) 0.731, Free Thyroxine 1.19, Salicylates Level < 1.7L, Acetaminophen Level < 2.0L, Ethyl Alcohol Level < 0.003 01/11/20 14:41: Urine Color YELLOW, Urine Appearance TURBIDH, Urine pH 5.0, Urine Specific [place] 1.021, Urine Protein 1+H, Urine Glucose (UA) NEGATIVE, Urine Ketones TRACEH, Urine Blood 2+H, Urine Nitrite NEGATIVE, Urine Bilirubin 1+H, Urine Urobilinogen 0.2, Urine Leukocyte Esterase 2+H, Urine WBC (Auto) TNTCH, Urine RBC (Auto) 43H, Urine Hyaline Casts (Auto) 0, Urine Bacteria (Auto) NEGATIVE, Urine Squamous Epithelial Cells 0, Urine Yeast-Like Cells (Auto) LARGEH, Urine Sperm (Auto) 01/11/20 17:03: Lactic Acid Level 1.7 01/11/20 17:45: Blood Gas Bicarbonate Standard 13.0L, Arterial Blood pH 7.225*L, Arterial Blood Partial Pressure CO2 27.1L, Arterial Blood Partial Pressure O2 100.1H, Arterial Blood Total CO2 11.8L, Arterial Blood HCO3 11.0L, Arterial Blood Base Excess - 15.1L, Arterial Blood Oxygen Saturation 97.2 01/11/20 18:17: Anion Gap 19H, Glomerular Filtration Rate 2.2L, Calcium Level 8.5L, Phosphorus Level 8.7H, Magnesium Level 2.2 01/11/20 21:44: Anion Gap 19H, Glomerular Filtration Rate 2.1L, Calcium Level 8.3L, Troponin I < 0.02 01/11/20 22:27: D-Dimer, Quantitative > 4000H 01/12/20 01:06: Prothrombin Time 16.3H, Prothromb Time International Ratio 1.29, Activated Partial Thromboplast Time 26.9 01/12/20 06:04: Immature Granulocyte % (Auto) 0.5, Neutrophils (%) (Auto) 74.6H, Lymphocytes (%) (Auto) 15.1L, Monocytes (%) (Auto) 9.7H, Eosinophils (%) (Auto) 0.0, Basophils (%) (Auto) 0.1, Neutrophils # (Auto) 8.7H, Lymphocytes # (Auto) 1.8, Monocytes # (Auto) 1.1H, Eosinophils # (Auto) 0.0, Basophils # (Auto) 0.0, Nucleated Red Blood Cells % (auto) 0.0, Activated Partial Thromboplast Time 71.7H, Anion Gap 13, Glomerular Filtration Rate 2.8L, Calcium Level 7.5L, Phosphorus Level 6.9#H, Total Bilirubin 0.3#, Aspartate Amino Transf (AST/SGOT) 9, Alanine Aminot ransferase (ALT/SGPT) 7L, Alkaline Phosphatase 57, Lactate Dehydrogenase 130, Total Creatine Kinase 81#, Total Protein 5.6#L, Albumin 2.9#L, Albumin/Globulin Ratio 1.1L, Triglycerides Level 119, Cholesterol Level 143, Complement C3 65L, Complement C4 28 CBC/BMP Laboratory Tests 01/11/20 12:22 01/11/20 18:17 01/11/20 21:44 01/12/20 06:04 Microbiology Microbiology 01/11/20 Urine Culture, Received Pending 01/11/20 Blood Culture, Received Pending 01/11/20 Blood Culture, Received Pending SCOTTY POPE MD Jan 12, 2020 07:41
[2020-01-12] MEDS ORDERED: cefTRIAXone SOD 1 GM in D5W MINI-BAG PLUS 50 ML IV SCH (09:00)
[2020-01-12] MEDS: DOCUSATE SODIUM 100 MG CAP PO SCH ×2 (09:00→20:48)
[2020-01-12] MEDS ORDERED: ENOXAPARIN 40MG/0.4ML SYRINGE (J1650 PER 10MG) SC SCH (09:00)
[2020-01-12] MEDS ORDERED: amLODIPine 5 MG TAB PO SCH (09:00)
[2020-01-12] MEDS: PANTOPRAZOLE 40MG TAB (PROTONIX) PO SCH (10:21)
[2020-01-12] MEDS: FLUoxetine 20 MG CAP PO SCH (10:59)
[2020-01-12] MEDS ORDERED: NS 1,000 ML IV ONE (11:30)
[2020-01-12] MEDS: MAG SULF 1GM/100ML (MAG RUN) 1 GM in IV 1 EA IV SCH ×2 (15:33→16:40)
[2020-01-12] MEDS: ONDANSETRON 4 MG ORAL DISINTEGRATING TAB PO PRN (17:52)
[2020-01-12] MEDS: AMIODARONE 200 MG TAB (PACERONE) PO SCH (20:53)
[2020-01-12] MEDS: ATORVASTATIN 10 MG TAB PO SCH (20:53)
[2020-01-12] MEDS ORDERED: LEVEMIR (INSULIN DETEMIR) 1 UNITS/0.01ML As Ordered ONE (21:15)
[2020-01-13] VITALS (16 sets, daily range): BP systolic 89–130; BP diastolic 50–61
[2020-01-13 05:05] LABS: BASO % 0.6 % (0.0-1.0); EOS % 0.4 % (0.0-3.0); HEMATOCRIT 25.8 % (36.0-47.0); HEMOGLOBIN 8.6 g/dl (12.0-15.5); LYMPH # 2.1 10^3/uL (1.5-5.0); LYMPH % 39.5 % (24.0-44.0); MEAN CORPUSCULAR HEMOGLOBIN 30.2 pg (27.0-33.0); MEAN CORPUSCULAR HGB CONC 33.3 g/dl (32.0-36.5); MEAN CORPUSCULAR VOLUME 90.5 fl (80.0-96.0); MONO # 0.4 10^3/uL (0.0-0.8); MONO % 8.3 % (0.0-5.0); NEUTROPHILS # 2.6 10^3/uL (1.5-8.5); NEUTROPHILS % 50.6 % (36.0-66.0); PLATELET COUNT, AUTOMATED 178 10^3/uL (150-450); RED BLOOD COUNT 2.85 10^6/uL (4.00-5.40); WHITE BLOOD COUNT 5.2 10^3/uL (4.0-10.0)
[2020-01-13] MEDS: SODIUM BICARBONATE 75 MEQ in NS 0.45% 1,000 ML IV SCH (05:15)
[2020-01-13] MEDS: HEPARIN DRIP 25,000 UNITS in IV 1 EA IV SCH (05:19)
[2020-01-13 05:48] LABS: ALBUMIN 2.6 GM/DL (3.2-5.2); ALT/SGPT < 6 U/L (12-78); BILIRUBIN,TOTAL 0.4 MG/DL (0.2-1.0); BLOOD UREA NITROGEN 67 MG/DL (7-18); CALCIUM LEVEL 7.6 MG/DL (8.8-10.2); CARBON DIOXIDE LEVEL 27 MEQ/L (21-32); CHLORIDE LEVEL 107 MEQ/L (98-107); CHOLESTEROL LEVEL 127 MG/DL (< 200); CPK CREATINE PHOSPHOKINASE 89 U/L (26-192); CREATININE FOR GFR 4.36 MG/DL (0.55-1.30); GLOMERULAR FILTRATION RATE 10.6 (>39); GLUCOSE, FASTING 79 MG/DL (70-100); LDH LACTATE DEHYDROGENASE 163 U/L (84-246); MAGNESIUM LEVEL 1.8 MG/DL (1.8-2.4); PHOSPHORUS LEVEL 4.3 MG/DL (2.5-4.9); POTASSIUM SERUM 3.8 MEQ/L (3.5-5.1); SODIUM LEVEL 140 MEQ/L (136-145); TOTAL PROTEIN 4.8 GM/DL (6.4-8.2); TRIGLYCERIDES LEVEL 80 MG/DL (<150)
[2020-01-13 06:31] LABS: INR 1.29; PROTHROMBIN TIME 16.4 SECONDS (11.8-14.0)
[2020-01-13 06:48] LABS: PERCENT SATURATION 39.2 % (13.2-45.0)
[2020-01-13] MEDS ORDERED: POTASSIUM CHLORIDE INJ 20 MEQ in NS 0.45% 1,000 ML IV SCH (07:30)
--- NOTE | 2020-01-13 08:10 | CR ---
DATE OF CONSULTATION: 01/11/2020 CONSULTATION FOR: Jethro Franco REASON FOR CONSULTATION: Severe hyperkalemia and acute renal failure. HISTORY OF PRESENT ILLNESS: Ms. Abrams is a 74-year-old female with known history of ulcerative colitis, status post ileostomy after total colectomy. She has history of hypertension, hyperlipidemia, stage 3 chronic kidney disease at baseline, nephrolithiasis, depression and recent history of acute renal failure. She was admitted with acute renal failure and hyperkalemia with septic shock a few weeks ago. At that time her renal function improved without any need for dialysis. She was brought to the emergency room again today with fatigue and anorexia. She is not eating well for at least two weeks. She was found to have BUN 121 and creatinine 19. Her potassium level was 7.7 and CO2 9 on admission. Nephrology consultation was requested and the patient is seen urgently in Intensive Care Unit. MEDICAL HISTORY: 1. Significant for recent history of acute renal failure and UTI. 2. History of ulcerative colitis, status post total colectomy and ileostomy. 3. Hypertension. 4. Stage 3 CKD at baseline. 5. Nephrolithiasis. 6. Depression. SURGICAL HISTORY: Significant for total colectomy with right-sided ileostomy. FAMILY HISTORY: Father with history of PA at age 58, he is . Mother had gastric cancer and at age 88. One brother with throat cancer. PERSONAL AND SOCIAL HISTORY: The patient lives with her son and [id number]. She denies any alcohol or drug use. She has no active smoking. ALLERGIES: NO KNOWN DRUG ALLERGIES. MEDICATIONS: Home medications include: - Allopurinol 100 mg daily. - Amlodipine 5 mg daily. - Atorvastatin 10 mg daily. - Prozac 40 mg daily. - Pantoprazole 40 mg daily. REVIEW OF SYSTEMS: The patient is not a great historian. However, she was able to supply some information. Apparently she has not been feeling too great for a couple of weeks. She reports decreased oral intake and large volume of output to her colostomy. She denies any vomiting but does feel nauseated. Ears, nose, and throat are unremarkable. Cardiovascular system: Negative for dyspnea, chest pain or leg edema. Respiratory system: Negative for cough or hemoptysis. GI system: Significant for poor oral intake and high output from her colostomy. system: Negative for dysuria or hematuria. She does have recent history of UTI and acute renal failure. Psychosocial system: Significant for depression. Neurological system: Negative for seizures or stroke. Hematological system: Negative for long-term anticoagulation. Musculoskeletal system: Significant for gout but denies any leg edema. Skin: Negative for rash or ulcers. PHYSICAL EXAMINATION: General: Elderly lady lying in bed without any acute distress. Vital signs: Temperature 99 degrees Fahrenheit, heart rate 85 per minute, respiratory rate 17 per minute. Blood pressure 104/50 mmHg and oxygen saturation 98% on room air. HEENT: Head is atraumatic. Oral mucosa is somewhat dry. Pupils equal, round and reactive to light. Sclerae anicteric. Neck: Supple without JVD or hepatojugular reflux. There is no thyroid enlargement and trachea is midline. Heart: Sounds are regular . Lungs: Clear to auscultation. Abdomen: Soft, nontender. Ileostomy is present in the right lower quadrant. Bowel sounds are present. Extremities: Without cyanosis or clubbing. Neurological: She is awake, without any focal deficits. LABORATORY DATA: On admission sodium 127, potassium 7.7, chloride 93, CO2 9, BUN 121 and creatinine 19. Glucose 163, lactic acid 3.3. Calcium level 9.8. Amylase 328, lipase 415. Urinalysis showed too numerous to count WBCs and 43 RBCs with large amount of bacteria. Blood gas showed pH 7.22, pCO2 27, pO2 100 and bicarb 13. IMAGING DATA: CT scan of abdomen and pelvis done in the emergency room showed gallstones and bilateral renal calculi. PROBLEMS: 1. Acute renal failure superimposed on chronic kidney disease. Most likely this is prerenal. She did not have any hydronephrosis. She has high output from her ostomy and decreased oral intake due to UTI. Will hydrate her aggressively with IV fluids and continue to monitor kidney function closely. I do not feel that urgent dialysis is needed at present. 2. Hyperkalemia. This is related to acute renal failure and metabolic acidosis. Potassium level has already improved since admission. I will not give her any further Kayexalate. We will correct her metabolic acidosis and volume depletion which will likely improve her hyperkalemia. 3. Metabolic acidosis. She has significant metabolic acidosis related to acute renal failure and possibly related to high ostomy output. Will start with sodium bicarbonate drip at 150 mL per hour. Renal function will be checked again tomorrow morning. 4. UTI. She has history of frequent UTIs and kidney stones. She is currently now on Ceftriaxone and afebrile. She should probably be treated for at least two weeks for her UTI. 5. Hypertension. Blood pressure is somewhat soft at present and I will hold her amlodipine for systolic blood pressure less than 130 mmHg. Thank you for involving me in the care of Ms. Abrams. I will follow her along with you. TIA
--- NOTE | 2020-01-13 08:19 | CCN ---
DATE: 01/11/2020 SUBJECTIVE: I was called to the Intensive Care Unit to evaluate this 74-year-old female in shock. Admitted with fatigue and anorexia she has an extensive past medical history: Has had ulcerative colitis for many years, post-ileostomy and colectomy, she has hypertension and suffers chronic kidney disease related in part to nephrolithiasis in the past. She was recently admitted on two occasions with hypotension. Since admission she has been found in acute kidney failure with acidosis, bicarb drip was initiated and her blood pressure has been progressively falling. Despite IV fluid administration, Levophed has been started, her heart rate became rapid and the electrocardiogram revealed atrial fibrillation with rapid ventricular response. She has not responded to Amiodarone. PHYSICAL EXAMINATION: Vital signs: At bedside her temperature is 99, pulse rate 110, respirations 22, blood pressure 73/43. HEENT: She is normocephalic. Her pupils respond. Oral mucosa is dry. Neck: Supple, no meningismus, jugular veins are flat, carotid upstroke brisk. Heart: Sounds irregularly irregular. Lungs: Breath sounds are clear to auscultation bilaterally. Abdomen: Soft with an ileostomy in place, there are bowel sounds. Extremities: Cool, pulses diminished but palpable. DIAGNOSTIC STUDIES: Chest imaging shows no infiltrates, right diaphragm is slightly elevated. Sodium 135, potassium 5.0, chloride 103, CO2 13, BUN 116, creatinine 17.5, glucose 225. White cell count 11.2 with 95% neutrophils, hemoglobin 14.3, hematocrit 45.2, platelet count 360,000. Arterial blood gases show pH 7.22, pCO2 27, pO2 100. ASSESSMENT: 1. The primary problem requiring critical attention is shock. The patient will need a central venous catheter in place for pressor administration. 2. Dehydration. Her fluid volume appears to be low, will check CVP once we have the line in place to guide fluid administration. 3. Atrial fibrillation with rapid ventricular response. Rate is now controlled with medications. Close monitoring will be necessary and troponins have been ordered. 4. Acute kidney injury. Nephrology is involved in care. 5. Metabolic acidosis with anion gap, a bicarb drip has been instituted. 6. Ulcer prophylaxis is in place with Protonix. The patients condition is critical. Prognosis is guarded. 1 hour 20 minutes was spent in the provision of bedside critical care and coordination in excess of any time spent performing procedures. [facility]
[2020-01-13] MEDS: AMIODARONE 200 MG TAB (PACERONE) PO SCH ×2 (09:00→20:46)
[2020-01-13] MEDS: FLUoxetine 20 MG CAP PO SCH (09:00)
[2020-01-13] MEDS: PANTOPRAZOLE 40MG TAB (PROTONIX) PO SCH (09:00)
[2020-01-13] MEDS: KCL 20MEQ IN 0.45NS 1000ML 1,000 ML IV SCH (09:10)
[2020-01-13] MEDS: ONDANSETRON 4 MG ORAL DISINTEGRATING TAB PO PRN (11:17)
[2020-01-13 11:30] LABS: TOTAL 25(OH) VITAMIN D 18.9 NG/ML (30.0-100.0)
[2020-01-13 11:32] LABS: PTH INTACT 401.8 PG/ML (18.5-88.0)
[2020-01-13 11:45] LABS: HEPATITIS B SURFACE ANTIGEN NEGATIVE (NEGATIVE)
[2020-01-13 12:08] LABS: HEPATITIS C VIRUS ABY INDEX 0.1 INDEX (<0.8)
[2020-01-13 12:09] LABS: HEPATITIS B CORE ANTIBODY IGM NEGATIVE (NEGATIVE)
[2020-01-13 12:12] LABS: HEPATITIS A ANTIBODY IGM NEGATIVE (NEGATIVE)
[2020-01-13 13:00] LABS: BASO % 0.6 % (0.0-1.0); EOS % 0.4 % (0.0-3.0); HEMATOCRIT 28.9 % (36.0-47.0); HEMOGLOBIN 9.6 g/dl (12.0-15.5); LYMPH # 1.6 10^3/uL (1.5-5.0); LYMPH % 31.5 % (24.0-44.0); MEAN CORPUSCULAR HEMOGLOBIN 30.4 pg (27.0-33.0); MEAN CORPUSCULAR HGB CONC 33.2 g/dl (32.0-36.5); MEAN CORPUSCULAR VOLUME 91.5 fl (80.0-96.0); MONO # 0.5 10^3/uL (0.0-0.8); MONO % 9.9 % (0.0-5.0); NEUTROPHILS # 2.9 10^3/uL (1.5-8.5); NEUTROPHILS % 57.2 % (36.0-66.0); PLATELET COUNT, AUTOMATED 186 10^3/uL (150-450); RED BLOOD COUNT 3.16 10^6/uL (4.00-5.40); WHITE BLOOD COUNT 5.1 10^3/uL (4.0-10.0)
[2020-01-13 13:20] LABS: INR 1.22; PROTHROMBIN TIME 15.6 SECONDS (11.8-14.0)
[2020-01-13 13:22] LABS: PARTIAL THROMBOPLASTIN TIME 77.3 SECONDS (25.0-38.4)
--- NOTE | 2020-01-13 13:22 | IPN ---
DATE: 01/12/2020 Ms. Abrams was seen this morning at her bedside. Last evening, she went into atrial fibrillation with rapid ventricular rate and also developed low blood pressure. She received fluid boluses and was also given intravenous amiodarone. She is currently on IV heparin drip. Her heart rate has improved and blood pressure has also improved. She has good urine output. She remains on intravenous sodium bicarbonate drip since admission. Patient denies any dyspnea, chest pain, nausea or vomiting. Her colostomy has been functioning. Intake and output records showed total intake of 2525 and output only 155 yesterday. Since midnight, her intake is 3929 mL and output 1635. Head is atraumatic. Neck supple and without thyroid enlargement. There is no JVD. Heart sounds irregular and lungs sound clear to auscultation. Abdomen soft and nontender, and colostomy is functioning. Extremities without any cyanosis or clubbing. She has no peripheral edema. Today's labs showed WBC count 11.6, hemoglobin 9.5 and hematocrit 28. Sodium 134, potassium 2.9. CO2 of 18, BUN 105 and creatinine 13.7. Glucose 140 and calcium 7.5. Phosphorus is down to 6.9. Troponin less than 0.02 and less than 0.03. PROBLEMS: 1. Acute kidney injury most likely related to urinary tract infection (UTI) and dehydration. It is also quite possible that patient has paroxysmal atrial fibrillation which may have contributed to her acute kidney injury. In any event, her kidney function is improving nicely with IV fluid hydration and we will continue with the same. There is no emergent need for dialysis at this point. 2. Hyperkalemia. Her potassium level has already corrected down to 3.9. No intervention is needed at this point. 3. Metabolic acidosis. Metabolic acidosis is also improving nicely and we will continue with sodium bicarbonate drip at 150 mL/hr. 4. Hyperphosphatemia related to acute renal failure and improvement with improvement in kidney function. I do not feel that she needs a phosphate binder at this point. 5. Atrial fibrillation with rapid ventricular rate. The patient is currently on IV heparin drip. She has been on amiodarone. She has been followed by hospitalist and critical care service. TIA
--- NOTE | 2020-01-13 19:06 | IPNPDOC ---
Subjective Date Seen The patient was seen on 01/13/20. Subjective Chief Complaint/HPI Mrs. Abrams is a 74 year old female here with fatigue and anorexia found to have severe DINA secondary to poor oral intake. She has been feeling better, and felt that she could try mechanical soft food. This evening she saw the food which disagreed with her. Otherwise, she has not needed the Levophed overnight, and blood pressure has been stable. General: Denies: Chills Constitutional: Denies: Chills, Fever Eyes: Denies: Vision change ENT: Denies: Sore Throat Pulmonary: Denies: Dyspnea, Cough Cardiovascular: Denies: Chest Pain Gastrointestinal: Reports: Other Symptoms (Poor appetite) Genitourinary: Denies: Dysuria Objective Physical Examination General Exam: Positive: Alert, Cooperative, No Acute Distress Eye Exam: Positive: EOMI, Sclera icteric Neck Exam: Positive: Supple Chest Exam: Positive: Clear to auscultation; Negative: Rales, Rhonchi, Wheezing Heart Exam: Positive: Rate Normal, Irregular Rhythm Abdomen Exam: Positive: Normal bowel sounds Neuro Exam: Positive: Normal Speech, Cranial Nerves 3-12 NL Psych Exam: Positive: Other (Depressed) Assessment /Plan Assessment Mrs. Abrams is a 74 year old female with history of UC (s/p colectomy and right sided ileostomy) here with severe DINA and hyperkalemia secondary to poor oral intake. Renal function improved with fluids and she did not need pressors overnight. Appetite is still poor. She did well when she was on Megace, but was D/C due to increased risk for VTE. Yesterday there was concern for PE, but unable to do CTA due to renal function. V-Q scan ordered for this morning. Otherwise, she had Afib with RVR that now has been rate controlled. Plan/VTE VTE Prophylaxis Ordered?: Yes Plan 1. Acute renal failure. Most likely secondary to hypovolemia secondary to poor oral intake. She was doing okay with clear liquid diet, but has not tolerated mechanical soft diet. Otherwise, renal function improving with IV fluids. Has not needed Levophed overnight. Nephrology following for acute renal failure, rec ommendations appreciated. 2. New onset atrial fibrillation with RVR. Rate controlled today. Not on BB due to hypovolemia and poor oral intake. Currently on PO amiodarone. On IV heparin for anticoagulation. Yesterday, there was concern for PE as cause of new onset atrial fibrillation. No CTA due to DINA, pending results from V-Q scan. Pending results from echocardiogram 3. Hyperkalemia. Secondary to DINA. On admission 7.2. Now 3.8. Continue to monitor 4. Hypovolemia. Lactic acid resolved and renal function improved with fluids. Urine culture negative. Ceftriaxone was discontinued. Blood cultures negative to date. Continue to monitor. 5. Depression. Continue Fluoxetine 6. DVT ppx. Heparin IV. [facility]O Vital Signs Date Time Temp Pulse Resp B/P (MAP) Pulse Ox O2 Delivery O2 Flow Rate FiO2 01/13/20 12:00 97.9 80 13 130/61 (84) 95 Room Air 01/13/20 06:30 2.0 I&O- Last 24 Hours up to 6 AM 01/13/20 06:00 Intake Total 5031.6 ml Output Total 3345 ml Balance 1686.6 ml Laboratory Data 24H LABS Laboratory Tests 2 01/13/20 04:45: Immature Granulocyte % (Auto) 0.6, Neutrophils (%) (Auto) 50.6, Lymphocytes (%) (Auto) 39.5, Monocytes (%) (Auto) 8.3H, Eosinophils (%) (Auto) 0.4, Basophils (%) (Auto) 0.6, Neutrophils # (Auto) 2.6, Lymphocytes # (Auto) 2.1, Monocytes # (Auto) 0.4, Eosinophils # (Auto) 0.0, Basophils # (Auto) 0.0, Nucleated Red Blood Cells % (auto) 0.0, Activated Partial Thromboplast Time 107.6H, Anion Gap 6L, Glomerular Filtration Rate 10.6L, Calcium Level 7.6L, Phosphorus Level 4.3#, Magnesium Level 1.8, Total Bilirubin 0.4, Aspartate Amino Transf (AST/SGOT) 10, Alanine Aminotransferase (ALT/SGPT) < 6L, Alkaline Phosphatase 50, Lactate Dehydrogenase 163, Total Creatine Kinase 89, Total Protein 4.8L, Albumin 2.6L, Albumin/Globulin Ratio 1.2, Triglycerides Level 80, Cholesterol Level 127 01/13/20 06:01: Prothrombin Time 16.4H, Prothromb Time International Ratio 1.29, Iron Level 78, Total Iron Binding Capacity 199L, Transferrin % Saturation 39.2, Ferritin 226 01/13/20 12:40: Immature Granulocyte % (Auto) 0.4, Neutrophils (%) (Auto) 57.2, Lymphocytes (%) (Auto) 31.5, Monocytes (%) (Auto) 9.9H, Eosinophils (%) (Auto) 0.4, Basophils (%) (Auto) 0.6, Neutrophils # (Auto) 2.9, Lymphocytes # (Auto) 1.6, Monocytes # (Auto) 0.5, Eosinophils # (Auto) 0.0, Basophils # (Auto) 0.0, Nucleated Red Blood Cells % (auto) 0.0, Activated Partial Thromboplast Time 77.3H, Prothrombin Time 15.6H, Prothromb Time International Ratio 1.22 01/13/20 18:00: CBC/BMP Laboratory Tests 01/13/20 04:45 01/13/20 12:40 Microbiology Microbiology 01/12/20 Stool Occult Blood (RANDI) - Final, Complete 01/11/20 Urine Culture - Final, Complete 01/11/20 Blood Culture - Preliminary, Resulted No Growth after 48 hours. All Specime... 01/11/20 Blood Culture - Preliminary, Resulted No Growth after 48 hours. All Specime... MANUELITO CASTLE DO Jan 13, 2020 19:06
[2020-01-13] MEDS: ACETAMINOPHEN TAB 650MG DOSE (2X325MG) PO PRN (20:46)
[2020-01-13] MEDS: SUCRALFATE 1 GM TAB PO SCH (20:46)
[2020-01-13] MEDS: ATORVASTATIN 10 MG TAB PO SCH (20:46)
[2020-01-14] VITALS: BP 103/52
[2020-01-14] MEDS: KCL 20MEQ IN 0.45NS 1000ML 1,000 ML IV SCH ×2 (00:11→12:57)
[2020-01-14] MEDS: HEPARIN DRIP 25,000 UNITS in IV 1 EA IV SCH (05:31)
[2020-01-14 05:40] LABS: BASO % 0.7 % (0.0-1.0); EOS # 0.1 10^3/uL (0.0-0.5); EOS % 2.1 % (0.0-3.0); HEMATOCRIT 26.3 % (36.0-47.0); HEMOGLOBIN 8.3 g/dl (12.0-15.5); LYMPH # 2.3 10^3/uL (1.5-5.0); LYMPH % 52.2 % (24.0-44.0); MEAN CORPUSCULAR HGB CONC 31.6 g/dl (32.0-36.5); MEAN CORPUSCULAR VOLUME 94.9 fl (80.0-96.0); MONO # 0.5 10^3/uL (0.0-0.8); MONO % 10.7 % (0.0-5.0); NEUTROPHILS # 1.5 10^3/uL (1.5-8.5); NEUTROPHILS % 34.1 % (36.0-66.0); PLATELET COUNT, AUTOMATED 158 10^3/uL (150-450); RED BLOOD COUNT 2.77 10^6/uL (4.00-5.40); WHITE BLOOD COUNT 4.3 10^3/uL (4.0-10.0)
[2020-01-14 06:02] LABS: ERYTHROCYTE SEDIMENTATION RATE 9 mm/hr (0-30)
[2020-01-14 06:20] LABS: ALBUMIN 2.6 GM/DL (3.2-5.2); BILIRUBIN,TOTAL 0.6 MG/DL (0.2-1.0); CALCIUM LEVEL 7.9 MG/DL (8.8-10.2); CREATININE FOR GFR 2.18 MG/DL (0.55-1.30); GLOMERULAR FILTRATION RATE 23.6 (>39); MAGNESIUM LEVEL 1.4 MG/DL (1.8-2.4); PHOSPHORUS LEVEL 3.2 MG/DL (2.5-4.9); POTASSIUM SERUM 4.3 MEQ/L (3.5-5.1); TOTAL PROTEIN 4.9 GM/DL (6.4-8.2)
[2020-01-14] MEDS: PANTOPRAZOLE 40MG TAB (PROTONIX) PO SCH (08:38)
[2020-01-14] MEDS: FLUoxetine 20 MG CAP PO SCH (08:38)
[2020-01-14] MEDS: AMIODARONE 200 MG TAB (PACERONE) PO SCH ×2 (08:38→21:06)
[2020-01-14] MEDS: SUCRALFATE 1 GM TAB PO SCH ×4 (08:39→21:06)
[2020-01-14 10:26] VITALS: BP 145/65
[2020-01-14 12:00] VITALS: BP 147/67
--- NOTE | 2020-01-14 13:24 | ECHO ---
DATE OF PROCEDURE: 01/12/2020 Age: 74 PATIENT LOCATION: Room 3209 REASON FOR STUDY: Atrial fibrillation, hypotension. 2D MEASUREMENTS: IVS 1.1 cm LV 3.6 cm LVPW 1.0 cm LA 3.7 cm Aorta 2.7 cm Ascending aorta 2.6 cm RV 2.9 cm IVC 2.6 cm DOPPLER MEASUREMENT Mitral E 0.85 Maximal tricuspid valve velocity 2.9 mm/s 2D COMMENTS: 1. Normal left ventricular size, wall thickness, and normal global left ventricular systolic function. The left ventricle appeared to be hyperdynamic with an estimated left ventricular systolic ejection fraction of 65% to 70%. 2. Normal left atrium, normal right atrium, and right ventricle. 3. The atrial septum appeared to be normal without evidence for defect or shunt. 4. Normal aortic root. 5. No pericardial effusion seen. 6. Mildly calcified aortic valve with normal leaflet excursion. Mildly mitral annulus with normal anterior mitral valve leaflet motion. Normal tricuspid valve and pulmonic valve. The proximal pulmonary artery branches were not well visualized. 7. The inferior vena cava was normal in size. Central venous pressure is most likely normal. DOPPLER: It detects mild mitral regurgitation, moderate tricuspid regurgitation. The calculated pulmonary artery systolic pressure varies between 40 to 50 mmHg. Assessment of the left ventricular diastolic function was limited in view of the underlying atrial fibrillation. IMPRESSION: 1. Normal global left ventricular systolic function with a hyperdynamic left ventricle. Assessment of the left ventricular diastolic function was inconclusive. 2. Mild mitral regurgitation with mitral annulus calcification. Subjectively, the left atrium appeared to be mildly enlarged. 3. Moderate tricuspid regurgitation with probably moderate pulmonary hypertension. 4. Not mentioned above, a sigmoid appearance of the base of the ventricular septum was noted, a benign finding. 5. Not mentioned above, the aortic root and ascending aorta measured normal in size, but subjectively, the descending portion of the thoracic aorta appeared to be mildly enlarged. MTDD
[2020-01-14] MEDS ORDERED: MAG SULF 1GM/100ML (MAG RUN) 1 GM in IV 1 EA IV ONE ×2 (14:00→15:00)
[2020-01-14 16:00] VITALS: BP 136/62
[2020-01-14] MEDS: ONDANSETRON 4 MG ORAL DISINTEGRATING TAB PO PRN (18:40)
--- NOTE | 2020-01-14 18:45 | CR ---
DATE OF CONSULTATION: 01/12/2020 REFERRING PROVIDER: REASON FOR CONSULTATION: Atrial fibrillation. HISTORY OF PRESENT ILLNESS: Mrs. Lakisha Abrams was initially admitted yesterday, 01/11/2020 with fatigue and anorexia. It seems that she has been having increasing output from the ileostomy, which she had after colectomy from ulcerative colitis. She was found to be in acute renal failure with marked hyperkalemia, and she was hypotensive. She was admitted to intensive care unit (ICU) for further management and monitoring, and she was started on intravenous (IV) fluids. She also developed atrial fibrillation with rapid ventricular rate, and she was started on IV amiodarone. When I saw Mrs. Lakisha Abrams, she was supine in bed in no acute distress at rest. She is in atrial fibrillation on telemetry but with a controlled ventricular rate. She denies any chest pain, palpitations, dizziness, or lightheadedness, focal manifestation. She denies any bleeding. She has not been coughing. She denies any abdominal pain. She has a history of ulcerative colitis and has colectomy done and ileostomy, hypertension, hyperlipidemia, chronic kidney disease, nephrolithiasis, and anxiety/depression. She denies any history of coronary artery disease, myocardial infarction, significant valvular heart disease, prior history of atrial fibrillation/flutter, transient ischemic attack (TIA)/ cerebrovascular accident (CVA), cardiomyopathy, sudden cardiac , diabetes mellitus. PAST SURGICAL HISTORY: Positive, as mentioned above, for colectomy for ulcerative colitis and right-sided ileostomy. HOME MEDICATIONS: - allopurinol 100 mg by mouth every night - amlodipine 5 mg by mouth daily - atorvastatin 10 mg by mouth daily - fluoxetine 40 mg by mouth daily - pantoprazole 40 mg by mouth twice a day - She takes ondansetron as needed FAMILY HISTORY: Noncontributory. SOCIAL HISTORY: Patient currently lives with her son, and she denies prior history of smoking or ETOH (ethanol) abuse. There is no history of illicit drugs. ALLERGIES: No known drug allergies. ADVANCE DIRECTIVES: Patient is a full code. CURRENT MEDICATIONS: - magnesium - fluoxetine 40 mg by mouth daily - ceftriaxone 1 gram every 24 hours - pantoprazole 40 mg by mouth daily - IV heparin drip - docusate sodium 100 mg by mouth twice a day - atorvastatin 10 mg by mouth every night - sodium bicarbonate - ondansetron 4 mg by mouth every 8 hours as needed - Tylenol 650 mg every 4 hours as needed for pain or fever - milk of robert - Patricia PHYSICAL EXAMINATION: Patient is alert and oriented in no acute distress at rest. When I saw her, blood pressure was 104/52 with a pulse of 86, respirations 18, and her maximum temperature was 98.6 degrees Fahrenheit with an oxygen saturation of 96% on room air. Examination of the head: Atraumatic. Neck is supple and no jugular venous distention (JVD) appreciated. The lungs did not reveal any wheezing or crackles. The heart examination revealed irregular heart sounds without gallops. The point of maximal impulse (PMI) is not displaced. There is no rub. Abdomen is soft. Extremities reveal no pedal edema. Peripheral pulse, dorsalis pedis were +2 and equal. Neurologic examination is negative for focal deficit. LABORATORY DATA: CBC done this morning revealed a WBC 11.6, hemoglobin 9.5, hematocrit 28.1, and pulse 226,000, and on admission CBC revealed a WBC 11.2, hematocrit 14.3, hematocrit 45.2, and platelets 360,000. BMP done today revealed a sodium 144, potassium 3.9, chloride 103, CO2 of 18, BUN 105, creatinine 13.7, and GFR 2.8. Fasting glucose 140 and calcium 7.5. Serum phosphorus is 6.9. Serum magnesium is 1.7. Liver enzymes reveal a total bilirubin of 0.3, AST 9, ALT 7, alkaline phosphatase 57, and total protein 5.6, albumin 2.9. Serum troponin is negative, less than or equal to 1.03. On admission, serum potassium was 7.7 with a BUN and creatinine of 121 and 19.0. Serum lactic acid was 3.3, then 1.7. Serum amylase was 328 and serum lipase 415. PTT done today, 100.4. Serum D-dimer was greater than 4000. Urinalysis revealed +2 blood, trace ketones, +2 leukocyte esterase, large amount of yeast. Urine bacteremia so far is negative. Hepatitis panel is pending. Urine culture: No growth. Blood cultures are pending and so far no growth. Chest x-ray on admission was negative. No cardiomegaly. There were degenerative changes in the spine. Chest CT revealed no specific acute intrathoracic abnormalities. There was atherosclerotic disease in the thoracic aorta without aneurysmal dilatation. Minimal basilar atelectasis noted. The thyroid gland was slightly enlarged. CT of the abdomen and pelvis revealed gallstones and bilateral renal calculi. No bowel dilatation. Repeat chest x-ray done yesterday revealed a right subclavian central line to the distal superior vena cava and no pneumothorax. Otherwise negative chest x- ray. Telemetry revealed atrial fibrillation. Echocardiogram done this morning revealed a normal global left ventricular systolic function with hyperdynamic left ventricle, moderate tricuspid regurgitation with moderate to mild hypertension, mild mitral regurgitation. The left atrium appeared to be mildly enlarged. IMPRESSION: 1. Atrial fibrillation, newly diagnosed and currently on IV heparin. Currently not on AV blocking agents because of low blood pressure. She was earlier on IV amiodarone, but she is no longer on it, and I agree with that, and case was discussed with the resident doing rotation in the intensive care unit (ICU). This can cause also hypotension. We can give her oral amiodarone and digoxin if needed to control her heart rate better. The digoxin will need to be adjusted in view of her liver function. For now, she will be started on oral amiodarone, and I will monitor her along with you. Once her blood pressure is more stable, we can use oral beta xander or calcium channel xander. At one point, we can switch the IV heparin to apixaban, and, in view of her kidney function and her weight, I will give her 2.5 mg by mouth twice a day. 2. History of hypertension and hypotensive, being addressed. Will stay away from the amlodipine at this present time. 3. Hyperlipidemia, on a statin. 4. History of chronic kidney disease. 5. Status post marked hyperkalemia, now corrected. 6. History of ulcerative colitis. It is reported that she has a lot of drainage from that bag. She might benefit from gastrointestinal (GI) while in the hospital, and in view of her history. That is probably the etiology of her deterioration in her kidney function and the hyperkalemia and subsequently her hypotension. 7. History of anxiety/depression, being addressed. 8. History of gastroesophageal reflux disease (GERD), on medications. It was a pleasure to participate in the care of Mrs. Lakisha Abrams for her underlying cardiac condition. I will continue to monitor her along with you while in the hospital. Tomorrow, I will ask Dr. Montana to follow her. Case was discussed with her hospitalist. TIA
[2020-01-14 20:00] VITALS: BP 136/91
--- NOTE | 2020-01-14 20:40 | IPNPDOC ---
Subjective Date Seen The patient was seen on 01/14/20. Subjective Chief Complaint/HPI Mrs. Abrams is a 74 year old female here with fatigue and anorexia found to have severe DINA secondary to poor oral intake. Today she has been feeling better. This morning, she was able to eat a banana without issue. This afternoon, she did not feel like eating. Otherwise, she has not needed pressors and was transferred out of the ICU and the CVC was removed. Constitutional: Denies: Chills, Fever Eyes: Denies: Vision change ENT: Denies: Sore Throat Pulmonary: Denies: Dyspnea Cardiovascular: Denies: Chest Pain Gastrointestinal: Denies: Abdominal Pain Genitourinary: Denies: Dysuria Objective Physical Examination General Exam: Positive: Alert, Cooperative, No Acute Distress Eye Exam: Positive: EOMI, Sclera icteric Neck Exam: Positive: Supple Chest Exam: Positive: Clear to auscultation; Negative: Rales, Rhonchi, Wheezing Heart Exam: Positive: Rate Normal, Irregular Rhythm Abdomen Exam: Positive: Normal bowel sounds Neuro Exam: Positive: Normal Speech, Cranial Nerves 3-12 NL Psych Exam: Positive: Other (Depressed) Assessment /Plan Assessment Mrs. Abrams is a 74 year old female with history of UC (s/p colectomy and right sided ileostomy) here with severe DINA and hyperkalemia secondary to poor oral intake. Renal function improved with fluids and she did not need pressors overnight. Appetite is still poor. She did well when she was on Megace, but was D/C due to increased risk for VTE. Otherwise, she had Afib with RVR that now has been rate controlled. Her main barrier to discharge is her appetite as she does not want to eat. Plan/VTE VTE Prophylaxis Ordered?: Yes Plan 1. Acute renal failure. Most likely secondary to hypovolemia secondary to poor oral intake. Will encourage PO intake. Otherwise, renal function improving with IV fluids. Has not needed Levophed overnight. Nephrology following for acute renal failure, recommendations appreciated. 2. New onset atrial fibrillation with RVR. Rate controlled today. Not on BB due to hypovolemia and poor oral intake. Currently on PO amiodarone. On IV heparin for anticoagulation. There was concern for PE as cause of new onset atrial fibrillation. No CTA due to DINA, pending results from V-Q scan. Echocardiogram demonstrated hyperdynamic heart 3. Hyperkalemia. Secondary to DINA. On admission 7.2. Now 4.3. Continue to monitor 4. Hypovolemia. Lactic acid resolved and renal function improved with fluids. Urine culture negative. Ceftriaxone was discontinued. Blood cultures negative to date. Continue to monitor. 5. Depression. Continue Fluoxetine 6. DVT ppx. Heparin IV. VS, I&O, 24H, Fishbone Vital Signs/I&O Vital Signs Date Time Temp Pulse Resp B/P (MAP) Pulse Ox O2 Delivery O2 Flow Rate FiO2 01/14/20 16:00 98.5 58 20 136/62 (86) 98 Room Air 01/14/20 10:26 2.0 I&O- Last 24 Hours up to 6 AM 01/14/20 06:00 Intake Total 2481.0 ml Output Total 1515 ml Balance 966.0 ml Laboratory Data 24H LABS Laboratory Tests 2 01/14/20 05:13: Immature Granulocyte % (Auto) 0.2, Neutrophils (%) (Auto) 34.1L, Lymphocytes (%) (Auto) 52.2H, Monocytes (%) (Auto) 10.7H, Eosinophils (%) (Auto) 2.1, Basophils (%) (Auto) 0.7, Neutrophils # (Auto) 1.5, Lymphocytes # (Auto) 2.3, Monocytes # (Auto) 0.5, Eosinophils # (Auto) 0.1, Basophils # (Auto) 0.0, Nucleated Red Blood Cells % (auto) 0.0, Erythrocyte Sedimentation Rate 9, Activated Partial Thromboplast Time 83.7H, Anion Gap 5L, Glomerular Filtration Rate 23.6L, Calcium Level 7.9L, Phosphorus Level 3.2#, Magnesium Level 1.4L, Total Bilirubin 0.6, Aspartate Amino Transf (AST/SGOT) 10, Alanine Aminotransferase (ALT/SGPT) 8L, Alkaline Phosphatase 49, Lactate Dehydrogenase 153, Total Creatine Kinase 50, Total Protein 4.9L, Albumin 2.6L, Albumin/Globulin Ratio 1.1L, Triglycerides Level 74, Cholesterol Level 123 CBC/BMP Laboratory Tests 01/14/20 05:13 Microbiology Microbiology 01/13/20 Stool Occult Blood (RANDI) - Final, Complete 01/12/20 Stool Occult Blood (RANDI) - Final, Complete 01/11/20 Urine Culture - Final, Complete 01/11/20 Blood Culture - Preliminary, Resulted No Growth after 72 hours. All specime... 01/11/20 Blood Culture - Preliminary, Resulted No Growth after 72 hours. All specime... MANUELITO CASTLE DO Jan 14, 2020 20:40
[2020-01-14] MEDS: ATORVASTATIN 10 MG TAB PO SCH (21:06)
[2020-01-15] VITALS (7 sets, daily range): BP systolic 122–157; BP diastolic 60–71
[2020-01-15] MEDS: KCL 20MEQ IN 0.45NS 1000ML 1,000 ML IV SCH (04:14)
[2020-01-15 06:16] LABS: BASO % 0.6 % (0.0-1.0); EOS # 0.2 10^3/uL (0.0-0.5); EOS % 4.9 % (0.0-3.0); HEMATOCRIT 27.9 % (36.0-47.0); HEMOGLOBIN 8.7 g/dl (12.0-15.5); LYMPH # 2.1 10^3/uL (1.5-5.0); LYMPH % 44.6 % (24.0-44.0); MEAN CORPUSCULAR HEMOGLOBIN 29.9 pg (27.0-33.0); MEAN CORPUSCULAR HGB CONC 31.2 g/dl (32.0-36.5); MEAN CORPUSCULAR VOLUME 95.9 fl (80.0-96.0); MONO # 0.4 10^3/uL (0.0-0.8); MONO % 8.2 % (0.0-5.0); NEUTROPHILS % 41.5 % (36.0-66.0); PLATELET COUNT, AUTOMATED 142 10^3/uL (150-450); RED BLOOD COUNT 2.91 10^6/uL (4.00-5.40); WHITE BLOOD COUNT 4.7 10^3/uL (4.0-10.0)
[2020-01-15 06:49] LABS: ALBUMIN 2.6 GM/DL (3.2-5.2); BILIRUBIN,TOTAL 0.5 MG/DL (0.2-1.0); CALCIUM LEVEL 8.4 MG/DL (8.8-10.2); CREATININE FOR GFR 1.48 MG/DL (0.55-1.30); GLOMERULAR FILTRATION RATE 36.9 (>39); MAGNESIUM LEVEL 1.7 MG/DL (1.8-2.4); PHOSPHORUS LEVEL 2.1 MG/DL (2.5-4.9); POTASSIUM SERUM 4.8 MEQ/L (3.5-5.1)
[2020-01-15] MEDS: SUCRALFATE 1 GM TAB PO SCH ×4 (07:49→19:51)
[2020-01-15] MEDS ORDERED: DARBEPOETIN 100 MCG/0.5 ML *NON-DIALYSIS* SYRINGE (J0881) SC SCH (09:00)
[2020-01-15] MEDS ORDERED: MAG SULF 1GM/100ML (MAG RUN) 1 GM in IV 1 EA IV ONE (10:00)
[2020-01-15] MEDS: PANTOPRAZOLE 40MG TAB (PROTONIX) PO SCH (10:09)
[2020-01-15] MEDS: FLUoxetine 20 MG CAP PO SCH (10:09)
[2020-01-15] MEDS: AMIODARONE 200 MG TAB (PACERONE) PO SCH ×2 (10:10→19:51)
[2020-01-15] MEDS ORDERED: SLF 3 ML SYR IV PRN (10:15)
[2020-01-15] MEDS ORDERED: LIDOCAINE 1% MDV 20ML VIAL As Ordered ONE (12:17)
--- NOTE | 2020-01-15 12:29 | IPN ---
Note on behalf of Dr. Meade DATE: 01/12/2020 SUBJECTIVE: Ms. Abrams was seen and examined at the bedside this morning. She had no complaints. No issues reported from overnight. She was reported to have gone into atrial fibrillation with rapid ventricular response (RVR) overnight for which she was treated with amiodarone. This morning she continued to be in atrial fibrillation and she is currently getting an echocardiogram done. She denies any cough, dyspnea or shortness of breath. She denies any abdominal pain or back pain and otherwise no other complaints. OBJECTIVE: Her vitals at this time temperature is 98.2, pulse is 96, respiratory rate is 16, blood pressure is 104/54 with a MAP of 71. Pulse oximetry is 98% on room air. In the past 24 hours, she has had almost 2 liters in with 155 cc out. She has had two bowel movements. Her weight is 51.8 kg. Her CVP has been measured at 6 around midnight and then again at 8 and now this morning is at 6 again. PHYSICAL EXAMINATION: General: She is laying in bed, calm, in no acute distress, well appearing. HEENT exam: Normocephalic, atraumatic. Moist mucous membranes. Extraocular movements are intact and pupils equal, round and reactive to light. Neck is supple, no thyromegaly and no lymphadenopathy. Cardiovascular: She is irregularly irregular. No discernible murmurs, rubs or gallops. Respiratory: She is clear to auscultation bilaterally with adventitious breath sounds. Abdomen is soft and nontender to palpation. Ostomy is draining green fluid Ostomy site is clean, dry and intact. No abdominal tenderness. Extremities: No clubbing, cyanosis or edema. Skin: Warm and well perfused with no rashes or ulcers noted. Joints are not inflamed. Lymph nodes are not enlarged in the femoral, cervical or posterior auricular chain. LABORATORY: Today, her white blood cell count is 11.6, hemoglobin is 9.5, hematocrit is 28.1 and platelet count of 226. Chemistry: Sodium is 134, potassium is 3.9, chloride is 103, carbon dioxide is 18, anion gap is 13, BUN is 105 and creatinine is 13.7. Fasting glucose is 140, phosphorus is 6.9, magnesium is 1.7 and AST, ALT is 9 and 7 respectively. Alkaline phosphatase is 57. LDH 130. Total protein of 5.6 and albumin of 2.9. Her urine that was drawn yesterday showed 2+ blood, 2+ leukocyte esterase, to many too count white blood cells. Compliment C3 level was mildly low at 65 and hepatitis panel is pending. Urine culture was done, seems that there was no growth. Blood culture times two is pending that was drawn yesterday. She did have a chest x-ray yesterday, which showed central line was in good placement, otherwise negative. CT abdomen and pelvis yesterday which showed some gallstones, bilateral renal calculi, status post colectomy and right ostomy with bowel dilatation. ASSESSMENT: This is a 74-year-old female with acute renal failure and resolved anion gap metabolic acidosis, complicated by hypertension requiring Levophed and atrial fibrillation with rapid ventricular response (RVR) on amiodarone and a heparin drip, concerning for pulmonary embolus. RECOMMENDATIONS AND PLAN: 1. Would recommend continue fluid resuscitation. We have ordered a 1 liter fluid bolus this morning and we will reassess her CVP afterwards. Maintain a MAP greater than 65. 2. Continue maintenance fluid with bicarbonate. 3. Pending echocardiogram, would continue the heparin drip for now. Unlikely, the patient has a pulmonary embolus, but a V/Q scan has been ordered by the hospitalist this morning. If she were to have a pulmonary embolus (PE), likely that her CVP would have been higher. 4. Continue Rocephin empiric treatment of urinary tract infection (UTI). Dr. Meade: I participated in the lacey components of this evaluation and in the medical decision making reflected in the note. The patient remains critically ill and ICU care is appropriate. One hour and thirty seven minutes was spent in bedside care and coordination with other specialists exclusive of procedure time. TIA
--- NOTE | 2020-01-15 12:31 | IPN ---
DATE: 01/13/2020 Mrs. Abrams is feeling much better. She tells me that she slept reasonably well and denies any chest pain, palpitations or shortness of breath this morning. Telemetry monitoring reveals that she remains in atrial fibrillation with reasonably controlled rate. Vitals Signs: Blood pressure 103/54. Heart rate has been in the 70s and 80s. Saturation 99% on 2 liters of oxygen. Yesterday, her fluid balance was positive at 2500 mL and she made over 2600 mL of urine. Weight is recorded at 59 kg. She is alert, oriented and appropriate. Her jugular venous pressure (JVP) does not look elevated. Lungs are clear; good air movement. Heart exam reveals irregularly irregular rhythm. I do not appreciate any distinct rub or gallop, or murmur. Abdomen is soft without tenderness. Extremities are free of edema. There is an ileostomy bag in place. Neurologically, she is intact. LABORATORY: WBC count 5.3, hemoglobin 8.6, hematocrit 25.6 and platelet count 178,000. Basic metabolic panel reveals sodium 140, potassium 3.8, BUN 67; creatinine 4.4, which is down from 13 yesterday; and glucose 79. ASSESSMENT AND PLAN: Mrs. Abrams is a 74-year-old female with a history of ulcerative colitis with colectomy and ileostomy that had been done more than a decade ago. She apparently has had numerous presentations to this facility with dehydration related to high output from ileostomy and inability to keep up with and increase her oral intake. In this setting, she presented with severe hyperkalemia and acute renal failure that is improving with hydration. She developed atrial fibrillation with rapid ventricular response (RVR) while hospitalized. She received amiodarone IV and no p.o. and is currently rate- controlled atrial fibrillation. There was no evidence of elevated troponin. She did not have any anginal symptoms. An echocardiogram reveals preserved left ventricular systolic function. In my opinion, the atrial fibrillation very likely occurred as a consequence of stress related to her acute illness and I think there is a good probability that she will recover sinus rhythm within the next day or two. I believe it is appropriate to continue amiodarone for a few more days at current dose. She has been on heparin. The question is what would be the appropriate anticoagulation in the long run considering the fact that she is prone to these episodes of dehydration, which potentially increases the toxicity of anticoagulation. For most prescription medications, including coumadin, I still believe that she probably would be best served by Eliquis or Xarelto even though Eliquis has lesser degree of renal clearance and probably would be the preferable choice. Otherwise, I do not have any other suggestions in her management from a cardiac perspective. I am concerned with the recurrent presentations and I wonder whether there could be some adjustments made in her nutrition that would decrease the probability of this presentation. I wonder whether GI or nutritional involvement would be of some value. TIA
--- NOTE | 2020-01-15 12:35 | IPN ---
DATE: 01/13/2020 CHIEF COMPLAINT: Ms. Abrams is seen this morning on her bedside in Intensive Care Unit. She is sitting in the chair today. She feels better and remains on I.V. Heparin drip due to new onset atrial fibrillation. She reports poor appetite and did not eat yet this morning. She denies any dyspnea or chest pain. PHYSICAL EXAMINATION: Temperature 97.9 degrees Fahrenheit, heart rate 80 per minute, respiratory rate 16 per minute, blood pressure 130/60 mmHg and oxygen saturation 95% on room air. Intake and output records from last 24 hours show total intake 5,821 and output 3,285 mL. Head is atraumatic. Neck is supple and without JVD or thyroid enlargement. Heart sounds are irregular in rhythm. Lungs sound clear to auscultation. Abdomen is soft, colostomy is functioning. Bowel sounds are present. Extremities without any cyanosis or clubbing. Neurologically, she is awake, alert and oriented x3. LABORATORY DATA: Todays labs: WBC 5.1, hemoglobin 9.6, hematocrit 29. Sodium 140, potassium 3.8, CO2 up to 27, BUN 67, creatinine 4.36. PROBLEMS: 1. Acute kidney injury superimposed on chronic kidney disease: Kidney function is improving nicely and significant improvement in serum creatinine is noticed over last 24 hours. She has no uremic symptoms, though she has poor appetite. At this point, will continue to monitor her kidney function and we anticipate further improvement over the next 24 hours. Will continue with I.V. fluid hydration. 2. Metabolic acidosis: Her acidosis has corrected completely and bicarbonate drip is being stopped. I am switching her I.V. fluid to half normal saline with some potassium chloride. 3. Anemia: Her anemia is moderate, but no significant change since yesterday. No urgent need for a transfusion. Her iron studies are appropriate. 4. Atrial fibrillation: At present her ventricular rate is well controlled. She remains on Heparin drip. MTDD
[2020-01-15] MEDS: ACETAMINOPHEN TAB 650MG DOSE (2X325MG) PO PRN (12:42)
--- NOTE | 2020-01-15 13:16 | IPNPDOC ---
Subjective Date Seen The patient was seen on 01/15/20. Subjective Chief Complaint/HPI Mrs. Abrams is a 74 year old female here with fatigue and anorexia found to have severe DINA secondary to poor oral intake. No events overnight. This morning, she feels better and drinking more fluid. Otherwise denies fever/chills, chest pain, shortness of breath, abdominal pain, diarrhea, or dysuria Constitutional: Denies: Chills, Fever ENT: Denies: Head Aches Pulmonary: Denies: Dyspnea Cardiovascular: Denies: Chest Pain Gastrointestinal: Denies: Abdominal Pain, Diarrhea Genitourinary: Denies: Dysuria Objective Physical Examination General Exam: Positive: Alert, Cooperative, No Acute Distress Eye Exam: Positive: EOMI, Sclera icteric Neck Exam: Positive: Supple Chest Exam: Positive: Clear to auscultation; Negative: Rales, Rhonchi, Wheezing Heart Exam: Positive: Rate Normal, Irregular Rhythm Abdomen Exam: Positive: Normal bowel sounds Neuro Exam: Positive: Normal Speech, Cranial Nerves 3-12 NL Psych Exam: Positive: Mood NL Assessment /Plan Assessment Mrs. Abrams is a 74 year old female with history of UC (s/p colectomy and right sided ileostomy) here with severe DINA and hyperkalemia secondary to poor oral intake. Renal function improved with fluids and she did not need pressors overnight. Appetite is still poor. She did well when she was on Megace, but was D/C due to increased risk for VTE. Otherwise, she had Afib with RVR that now has been rate controlled. Plan/VTE VTE Prophylaxis Ordered?: Yes Plan 1. Acute renal failure. Most likely secondary to hypovolemia secondary to poor oral intake. Will encourage PO intake. Not on IV fluids. 2. New onset atrial fibrillation with RVR. Rate controlled today. Not on BB due to hypovolemia and poor oral intake. Currently on PO amiodarone. On IV heparin for anticoagulation. There was concern for PE as cause of new onset atrial fibrillation. No CTA due to DINA, pending results from V-Q scan. Echocardiogram demonstrated hyperdynamic heart 3. Hyperkalemia. Secondary to DINA. On admission 7.2. Now 4.8. Continue to monitor 4. Hypovolemic shock due to volume depletion. Lactic acid resolved and renal function improved with fluids. Urine culture negative. Ceftriaxone was discontinued. Blood cultures negative to date. Continue to monitor. 5. Depression. Continue Fluoxetine 6. DVT ppx. Heparin IV. 7. Protein calorie malnutrition. Mild. November weighted 62 to 69 kg, now 56 to 59 kg. Low protein (5) and albumin (2.6) VS, I&O, 24H, Fishbone Vital Signs/I&O Vital Signs Date Time Temp Pulse Resp B/P (MAP) Pulse Ox O2 Delivery O2 Flow Rate FiO2 01/15/20 12:00 97.5 55 18 130/68 (88) 98 Room Air 01/14/20 10:26 2.0 I&O- Last 24 Hours up to 6 AM 01/15/20 05:59 Intake Total 897 ml Output Total 1200 ml Balance -303 ml Laboratory Data 24H LABS Laboratory Tests 2 01/15/20 05:51: Immature Granulocyte % (Auto) 0.2, Neutrophils (%) (Auto) 41.5, Lymphocytes (%) (Auto) 44.6H, Monocytes (%) (Auto) 8.2H, Eosinophils (%) (Auto) 4.9H, Basophils (%) (Auto) 0.6, Neutrophils # (Auto) 2.0, Lymphocytes # (Auto) 2.1, Monocytes # (Auto) 0.4, Eosinophils # (Auto) 0.2, Basophils # (Auto) 0.0, Nucleated Red Blood Cells % (auto) 0.0, Activated Partial Thromboplast Time 90.0H, Anion Gap 5L, Glomerular Filtration Rate 36.9L, Calcium Level 8.4L, Phosphorus Level 2.1#L, Magnesium Level 1.7L, Total Bilirubin 0.5, Aspartate Amino Transf (AST/SGOT) 11, Alanine Aminotransferase (ALT/SGPT) 8L, Alkaline Phosphatase 51, Lactate Dehydrogenase 158, Total Creatine Kinase 41, Total Protein 5.0L, Albumin 2.6L, Albumin/Globulin Ratio 1.1L, Triglycerides Level 76, Cholesterol Level 121 CBC/BMP Laboratory Tests 01/15/20 05:51 Microbiology Microbiology 01/13/20 Stool Occult Blood (RANDI) - Final, Complete 01/12/20 Stool Occult Blood (RANDI) - Final, Complete 01/11/20 Urine Culture - Final, Complete 01/11/20 Blood Culture - Preliminary, Resulted No Growth after 72 hours. All specime... 9/6/20 Blood Culture - Preliminary, Resulted No Growth after 72 hours. All specime... MANUELITO CASTLE DO Jan 15, 2020 13:16
[2020-01-15] MEDS: SLF 3 ML SYR IV SCH ×2 (14:06→19:51)
[2020-01-15] MEDS: HEPARIN DRIP 25,000 UNITS in IV 1 EA IV SCH (17:29)
[2020-01-15] MEDS: ATORVASTATIN 10 MG TAB PO SCH (19:51)
[2020-01-16] VITALS (7 sets, daily range): BP systolic 129–155; BP diastolic 61–78
[2020-01-16] MEDS: SLF 3 ML SYR IV SCH ×3 (05:01→22:13)
[2020-01-16 06:12] LABS: BASO % 0.8 % (0.0-1.0); EOS # 0.3 10^3/uL (0.0-0.5); EOS % 5.9 % (0.0-3.0); LYMPH % 41.1 % (24.0-44.0); MEAN CORPUSCULAR HEMOGLOBIN 29.6 pg (27.0-33.0); MEAN CORPUSCULAR VOLUME 95.4 fl (80.0-96.0); MONO # 0.4 10^3/uL (0.0-0.8); NEUTROPHILS # 2.1 10^3/uL (1.5-8.5); PLATELET COUNT, AUTOMATED 146 10^3/uL (150-450); RED BLOOD COUNT 3.04 10^6/uL (4.00-5.40); WHITE BLOOD COUNT 4.8 10^3/uL (4.0-10.0)
[2020-01-16 06:39] LABS: CALCIUM LEVEL 8.3 MG/DL (8.8-10.2); CREATININE FOR GFR 1.39 MG/DL (0.55-1.30); GLOMERULAR FILTRATION RATE 39.7 (>39); POTASSIUM SERUM 4.8 MEQ/L (3.5-5.1)
[2020-01-16] MEDS: LR 1,000 ML IV SCH ×2 (07:15→20:48)
[2020-01-16] MEDS: SUCRALFATE 1 GM TAB PO SCH ×4 (09:06→20:48)
[2020-01-16] MEDS: AMIODARONE 200 MG TAB (PACERONE) PO SCH ×2 (09:06→20:49)
[2020-01-16] MEDS: ACETAMINOPHEN TAB 650MG DOSE (2X325MG) PO PRN ×2 (09:06→20:49)
[2020-01-16] MEDS: FLUoxetine 20 MG CAP PO SCH (09:06)
[2020-01-16] MEDS: PANTOPRAZOLE 40MG TAB (PROTONIX) PO SCH (09:07)
--- NOTE | 2020-01-16 11:06 | IPNPDOC ---
Subjective Date Seen The patient was seen on 01/16/20. Subjective Chief Complaint/HPI Mrs. Abrams is a 74 year old female here with fatigue and anorexia found to have severe DINA secondary to poor oral intake. No events overnight. This morning, she still has poor oral intake. Creatinine had not returned to pre-admission levels and fluids was restarted. Otherwise denies fever/chills, chest pain, shortness of breath, abdominal pain, diarrhea, or dysuria Constitutional: Denies: Chills, Fever Eyes: Denies: Pain ENT: Denies: Head Aches Pulmonary: Denies: Dyspnea Cardiovascular: Denies: Chest Pain Gastrointestinal: Denies: Abdominal Pain, Diarrhea Genitourinary: Denies: Dysuria Objective Physical Examination General Exam: Positive: Alert, Cooperative, No Acute Distress Eye Exam: Positive: EOMI, Sclera icteric Neck Exam: Positive: Supple Chest Exam: Positive: Clear to auscultation; Negative: Rales, Rhonchi, Wheezing Heart Exam: Positive: Rate Normal, Irregular Rhythm Abdomen Exam: Positive: Normal bowel sounds Neuro Exam: Positive: Normal Speech, Cranial Nerves 3-12 NL Psych Exam: Positive: Mood NL Assessment /Plan Assessment Mrs. Abrams is a 74 year old female with history of UC (s/p colectomy and right sided ileostomy) here with severe DINA and hyperkalemia secondary to poor oral intake. Renal function improved with fluids and she did not need pressors overnight. Appetite is still poor. She did well when she was on Megace, but was D/C due to increased risk for VTE. Currently pending results from the VQ scan. Otherwise, she had Afib with RVR that now has been rate controlled. Plan/VTE VTE Prophylaxis Ordered?: Yes Plan 1. Acute renal failure. Most likely secondary to hypovolemia secondary to poor oral intake. Will encourage PO intake. Restarted fluids since her creatinine is not at preadmission levels. 2. Poor oral intake. Touch based with her outpatient GI physician. He feels that it may be more from oropharyngeal dysphagia. Recommended speech/swallow. I will order evaluation. Outpatient PCP did not want Megace due to VTE risk. 3. New onset atrial fibrillation with RVR. Rate controlled today. Not on BB due to hypovolemia and poor oral intake. Currently on PO amiodarone. On IV heparin for anticoagulation. There was concern for PE as cause of new onset atrial fibrillation. No CTA due to DINA, pending results from V-Q scan. Called down to radiology, they have dictated, but pending shell machine operator upload. Echocardiogram demonstrated hyperdynamic heart 4. Hyperkalemia. Secondary to DINA. On admission 7.2. Now 4.8. Continue to monitor 5. Hypovolemic shock due to volume depletion. Lactic acid resolved and renal function improved with fluids. Urine culture negative. Ceftriaxone was discontinued. Blood cultures negative to date. Continue to monitor. 6. Depression. Continue Fluoxetine 7. DVT ppx. Heparin IV. 8. Protein calorie malnutrition. Mild. November weighted 62 to 69 kg, now 56 to 59 kg. Low protein (5) and albumin (2.6) VS, I&O, 24H, Fishbone Vital Signs/I&O Vital Signs Date Time Temp Pulse Resp B/P (MAP) Pulse Ox O2 Delivery O2 Flow Rate FiO2 01/16/20 08:00 96.8 69 18 152/78 (102) 98 Room Air 01/14/20 10:26 2.0 I&O- Last 24 Hours up to 6 AM 01/16/20 06:00 Intake Total 1032 ml Output Total 300 ml Balance 732 ml Laboratory Data 24H LABS Laboratory Tests 2 01/16/20 05:46: Immature Granulocyte % (Auto) 0.2, Neutrophils (%) (Auto) 44.0, Lymphocytes (%) (Auto) 41.1, Monocytes (%) (Auto) 8.0H, Eosinophils (%) (Auto) 5.9H, Basophils (%) (Auto) 0.8, Neutrophils # (Auto) 2.1, Lymphocytes # (Auto) 2.0, Monocytes # (Auto) 0.4, Eosinophils # (Auto) 0.3, Basophils # (Auto) 0.0, Nucleated Red Blood Cells % (auto) 0.0, Activated Partial Thromboplast Time 85.1H, Anion Gap 3L, Glomerular Filtration Rate 39.7, Calcium Level 8.3L CBC/BMP Laboratory Tests 01/16/20 05:46 Microbiology Microbiology 01/13/20 Stool Occult Blood (RANDI) - Final, Complete 01/12/20 Stool Occult Blood (RANDI) - Final, Complete 01/11/20 Urine Culture - Final, Complete 01/11/20 Blood Culture - Preliminary, Resulted No Growth after 72 hours. All specime... 01/11/20 Blood Culture - Preliminary, Resulted No Growth after 72 hours. All specime... MANUELITO CASTLE DO Jan 16, 2020 11:06
--- NOTE | 2020-01-16 12:00 | IPN ---
DATE: 01/14/2020 SUBJECTIVE: Ms. Abrams is seen this morning at her bedside. She is feeling well and laying in bed. She denies any nausea, vomiting, dyspnea or chest pain. Her colostomy has been functioning well. The nursing staff reports that cardiology has continued with amiodarone due to her atrial fibrillation. She is back in sinus rhythm today. She is still on a Heparin drip. PHYSICAL EXAMINATION: VITAL SIGNS: Temperature 97.2 degrees Fahrenheit, heart rate 58 per minute and respiratory rate 16 per minute. Blood pressure 145/65 mmHg and oxygen saturation 99%. HEENT: Head is atraumatic. NECK: Supple without JVD or thyroid enlargement. HEART: Heart sounds are regular today. LUNGS: Clear to auscultation. ABDOMEN: Soft and nontender. Bowel sounds are normal. Her colostomy is functioning. EXTREMITIES: Without any cyanosis or clubbing. NEUROLOGICAL: She is awake, alert and oriented x3. LABS: Todays labs show a WBC count down to 4.3, hemoglobin 8.3 and hematocrit 24.9. Sodium is 139, potassium 4.3, CO2 27, BUN 47, and creatinine down to 2.18. Magnesium level is 1.4, calcium 7.9. PROBLEMS: 1. Acute kidney injury superimposed on chronic kidney disease. Kidney function is improving nicely and she remains on IV fluids. She has been encouraged to increase her oral intake so we can stop her IV fluids. I will continue current rate of IV fluid for the next 24 hours and then consider to stop it. 2. Anemia, her anemia is gradually worsening as she is being hydrated. No need for a transfusion so far. We can give her one dose of Aranesp 100 mcg tomorrow. Her iron studies are appropriate. 3. Metabolic acidosis. Her acidosis has corrected and IV fluid has been now changed to half normal saline. She does not need sodium bicarbonate anymore. 4. Atrial fibrillation, she is now back in sinus rhythm. She is being followed by Cardiology and remains on IV Heparin drip and amiodarone. 5. Disposition: From a renal standpoint, the patient can be transferred out of the ICU. The patient has done very well from a renal standpoint and kidney function continues to improve. We will consider to stop her IV fluid tomorrow. MTDD
--- NOTE | 2020-01-16 12:03 | IPN ---
DATE: 01/15/2020 Ms. Abrams was seen this morning at her bedside. She is feeling better and denies any dyspnea, chest pain, nausea or vomiting. She is still receiving IV fluids. Patient reports that her appetite is improved and she is eating and drinking much better. Her colostomy continues to function. On physical examination, temperature 98.3 degrees Fahrenheit, heart rate 58 per minute and respiratory rate 16 per minute. Blood pressure 122/68 mmHg and oxygen saturation 95% on room air. Head is atraumatic. Neck supple and without JVD or thyroid enlargement. Heart sounds are regular and lungs clear to auscultation. Abdomen soft and nontender, and colostomy is functioning. Extremities without any cyanosis or clubbing. Neurologically, she is awake, alert and oriented x3. Today's labs show a WBC count 4.7, hemoglobin 8.7 and hematocrit 27.9. Platelets 142. Sodium 137, potassium 4.8, CO2 of 25, BUN34 and creatinine 1.48. Calcium is 8.4 and phosphorus 2.1. Magnesium level 1.7. PROBLEMS: 1. Acute kidney injury superimposed on chronic kidney disease. Kidney function continues to improve nicely. She is very well hydrated now and her oral intake is adequate. I am going to stop her IV fluids. Renal profile will be checked again tomorrow. 2. Metabolic acidosis. Her acidosis has completely corrected. She has not been on any sodium bicarbonate for the last several days. We will stop the IV fluids and see how she does over the next couple of days. 3. Anemia. Her anemia is related to recurrent illness, acute renal failure and chronic kidney disease. Her iron studies were appropriate and she was given Aranesp 100 mcg this morning. No emergent need for a transfusion. 4. Atrial fibrillation with rapid ventricular rate. Patient has converted back to sinus rhythm. She is being followed by cardiology. TIA
[2020-01-16 12:47] LABS: INR 1.13; PROTHROMBIN TIME 14.7 SECONDS (11.8-14.0)
[2020-01-16] MEDS: DRONABINOL 2.5 MG CAP (MARINOL) PO SCH (18:09)
[2020-01-16] MEDS: ATORVASTATIN 10 MG TAB PO SCH (20:48)
[2020-01-17] VITALS: BP 132/70
[2020-01-17 04:00] VITALS: BP 140/73
[2020-01-17] MEDS: SLF 3 ML SYR IV SCH ×3 (05:02→21:18)
[2020-01-17 08:00] VITALS: BP 162/64
[2020-01-17] MEDS: AMIODARONE 200 MG TAB (PACERONE) PO SCH ×2 (08:40→20:42)
[2020-01-17] MEDS: FLUoxetine 20 MG CAP PO SCH (08:40)
[2020-01-17] MEDS: APIXABAN 2.5 MG TAB (ELIQUIS) PO SCH ×2 (08:41→20:42)
[2020-01-17] MEDS: PANTOPRAZOLE 40MG TAB (PROTONIX) PO SCH (08:41)
[2020-01-17] MEDS: SUCRALFATE 1 GM TAB PO SCH (08:41)
[2020-01-17 09:05] LABS: BASO % 0.9 % (0.0-1.0); EOS # 0.2 10^3/uL (0.0-0.5); EOS % 4.3 % (0.0-3.0); HEMATOCRIT 31.3 % (36.0-47.0); HEMOGLOBIN 9.7 g/dl (12.0-15.5); LYMPH # 1.8 10^3/uL (1.5-5.0); LYMPH % 40.2 % (24.0-44.0); MEAN CORPUSCULAR HEMOGLOBIN 30.1 pg (27.0-33.0); MEAN CORPUSCULAR VOLUME 97.2 fl (80.0-96.0); MONO # 0.3 10^3/uL (0.0-0.8); MONO % 7.7 % (0.0-5.0); NEUTROPHILS # 2.1 10^3/uL (1.5-8.5); NEUTROPHILS % 46.7 % (36.0-66.0); PLATELET COUNT, AUTOMATED 146 10^3/uL (150-450); RED BLOOD COUNT 3.22 10^6/uL (4.00-5.40); WHITE BLOOD COUNT 4.4 10^3/uL (4.0-10.0)
[2020-01-17 09:25] LABS: CALCIUM LEVEL 8.4 MG/DL (8.8-10.2); CREATININE FOR GFR 1.27 MG/DL (0.55-1.30); POTASSIUM SERUM 4.7 MEQ/L (3.5-5.1)
--- NOTE | 2020-01-17 10:12 | IPNPDOC ---
Subjective Date Seen The patient was seen on 01/17/20. Subjective Chief Complaint/HPI Mrs. Abrams is a 74 year old female here with fatigue and anorexia found to have severe DINA secondary to poor oral intake. Last night started Marinol. Nurse reported that she ate more of dinner. Patient unsure if it had increased her appetite, but will continue to monitor for effect. Otherwise, no other events overnight. This morning, she tells me that she normally doesn't eat much of breakfast and most of her appetite is around 2 to 3 PM. Otherwise denies fever/chills, chest pain, shortness of breath, abdominal pain, diarrhea, or dysuria Constitutional: Denies: Chills, Fever ENT: Denies: Head Aches Pulmonary: Denies: Dyspnea Cardiovascular: Denies: Chest Pain Gastrointestinal: Denies: Nausea, Abdominal Pain Genitourinary: Denies: Dysuria Objective Physical Examination General Exam: Positive: Alert, Cooperative, No Acute Distress Eye Exam: Positive: EOMI, Sclera icteric Neck Exam: Positive: Supple Chest Exam: Positive: Clear to auscultation; Negative: Rales, Rhonchi, Wheezing Heart Exam: Positive: Rate Normal; Negative: Regular Rhythm Abdomen Exam: Positive: Normal bowel sounds Neuro Exam: Positive: Normal Speech, Cranial Nerves 3-12 NL Psych Exam: Positive: Mood NL Assessment /Plan Assessment Mrs. Abrams is a 74 year old female with history of UC (s/p colectomy and right sided ileostomy) here with severe DINA and hyperkalemia secondary to poor oral intake. Renal function improved with fluids and she did not need pressors. Appetite is still poor. She did well when she was on Megace, but was D/C due to increased risk for VTE. Otherwise, she had Afib with RVR that now has been rate controlled. Today we will transition her from IV heparin to PO apixaban. We will continue with Marinol. Plan/VTE VTE Prophylaxis Ordered?: Yes Plan 1. Acute renal failure. Most likely secondary to hypovolemia secondary to poor oral intake. Will encourage PO intake. Creatinine slowing approaching pre admission level. Will D/C fluids due to increased BP. 2. Poor oral intake. Touch based with her outpatient GI physician. He feels that it may be more from oropharyngeal dysphagia. Speech/swallow recommended m echanical soft diet. Outpatient PCP did not want Megace due to VTE risk. Will try Marinol 3. New onset atrial fibrillation with RVR. Rhythm control strategy since she was severely dehydrated on admission. Currently on PO amiodarone. Transitioning to PO apixaban (from IV heparin) for stroke ppx. There was concern for PE as cause of new onset atrial fibrillation. No CTA due to DINA, V-Q scan demonstrates low probability for PE. Echocardiogram demonstrated hyperdynamic heart 4. Hyperkalemia. Secondary to DINA. On admission 7.2. Now 4.7. Continue to monitor 5. Hypovolemic shock due to volume depletion. Lactic acid resolved and renal function improved with fluids. Urine culture negative. Ceftriaxone was discontinued. Blood cultures negative to date. Continue to monitor. 6. Depression. Weaning off Fluoxetine due to concerns of anorexia from Fluoxetine. Yesterday transitioned from 40mg daily to 20mg daily. Will continue for a week, then discontinue completely 7. DVT ppx. Apixaban 8. Protein calorie malnutrition. Mild. November weighted 62 to 69 kg, early hospitalization 56 to 59 kg. Total protein and albumin are low VS, I&O, 24H, [facility] Vital Signs/I&O Vital Signs Date Time Temp Pulse Resp B/P (MAP) Pulse Ox O2 Delivery O2 Flow Rate FiO2 01/17/20 08:00 98.9 62 18 162/64 (96) 97 Room Air 01/14/20 10:26 2.0 I&O- Last 24 Hours up to 6 AM 01/17/20 06:00 Intake Total 1911 ml Output Total 0 ml Balance 1911 ml Laboratory Data 24H LABS Laboratory Tests 2 01/16/20 12:07: Prothrombin Time 14.7H, Prothromb Time International Ratio 1.13 01/17/20 08:52: Immature Granulocyte % (Auto) 0.2, Neutrophils (%) (Auto) 46.7, Lymphocytes (%) (Auto) 40.2, Monocytes (%) (Auto) 7.7H, Eosinophils (%) (Auto) 4.3H, Basophils (%) (Auto) 0.9, Neutrophils # (Auto) 2.1, Lymphocytes # (Auto) 1.8, Monocytes # (Auto) 0.3, Eosinophils # (Auto) 0.2, Basophils # (Auto) 0.0, Nucleated Red Blood Cells % (auto) 0.0, Anion Gap 4L, Glomerular Filtration Rate 44.0, Calcium Level 8.4L CBC/BMP Laboratory Tests 01/17/20 08:52 Microbiology Microbiology 01/13/20 Stool Occult Blood (RANDI) - Final, Complete 01/12/20 Stool Occult Blood (RANDI) - Final, Complete 01/11/20 Urine Culture - Final, Complete 01/11/20 Blood Culture - Final, Complete NO GROWTH AFTER 5 DAYS 01/11/20 Blood Culture - Final, Complete NO GROWTH AFTER 5 DAYS MANUELITO CASTLE DO Jan 17, 2020 10:12
[2020-01-17 12:00] VITALS: BP 173/77
[2020-01-17] MEDS: SUCRALFATE SUSP 1GM/10ML UD PO SCH ×3 (12:00→20:42)
[2020-01-17] MEDS: amLODIPine 5 MG TAB PO SCH (13:26)
[2020-01-17 16:00] VITALS: BP 161/70
[2020-01-17] MEDS: DRONABINOL 2.5 MG CAP (MARINOL) PO SCH (18:09)
[2020-01-17 20:00] VITALS: BP 114/59
[2020-01-17] MEDS: ATORVASTATIN 10 MG TAB PO SCH (20:42)
[2020-01-18 04:00] VITALS: BP 139/67
[2020-01-18 04:46] LABS: BASO % 0.6 % (0.0-1.0); EOS # 0.3 10^3/uL (0.0-0.5); EOS % 5.2 % (0.0-3.0); HEMOGLOBIN 9.5 g/dl (12.0-15.5); LYMPH # 2.4 10^3/uL (1.5-5.0); LYMPH % 38.1 % (24.0-44.0); MEAN CORPUSCULAR HEMOGLOBIN 29.8 pg (27.0-33.0); MEAN CORPUSCULAR HGB CONC 30.6 g/dl (32.0-36.5); MEAN CORPUSCULAR VOLUME 97.2 fl (80.0-96.0); MONO # 0.6 10^3/uL (0.0-0.8); MONO % 9.6 % (0.0-5.0); NEUTROPHILS % 46.2 % (36.0-66.0); PLATELET COUNT, AUTOMATED 141 10^3/uL (150-450); RED BLOOD COUNT 3.19 10^6/uL (4.00-5.40); WHITE BLOOD COUNT 6.4 10^3/uL (4.0-10.0)
[2020-01-18 05:15] LABS: CALCIUM LEVEL 8.9 MG/DL (8.8-10.2); CREATININE FOR GFR 1.16 MG/DL (0.55-1.30); GLOMERULAR FILTRATION RATE 48.9 (>39); POTASSIUM SERUM 4.5 MEQ/L (3.5-5.1)
[2020-01-18] MEDS: SLF 3 ML SYR IV SCH ×3 (06:44→22:08)
[2020-01-18 08:00] VITALS: BP 139/66
[2020-01-18] MEDS: SUCRALFATE SUSP 1GM/10ML UD PO SCH ×4 (08:59→20:45)
[2020-01-18] MEDS: PANTOPRAZOLE 40MG TAB (PROTONIX) PO SCH (08:59)
[2020-01-18] MEDS: APIXABAN 2.5 MG TAB (ELIQUIS) PO SCH ×2 (08:59→20:46)
[2020-01-18] MEDS: amLODIPine 5 MG TAB PO SCH (09:00)
[2020-01-18] MEDS: FLUoxetine 20 MG CAP PO SCH (09:00)
[2020-01-18] MEDS: AMIODARONE 200 MG TAB (PACERONE) PO SCH ×2 (09:00→20:46)
--- NOTE | 2020-01-18 12:12 | IPN ---
DATE: 01/16/2020 SUBJECTIVE: Ms. Abrams is seen this morning at her bedside. She is sitting in the chair at the time of my visit. We had stopped her IV fluid yesterday, however, the Hospitalist had restarted it. The patient probably is not eating well. She denies any nausea or vomiting. Her colostomy has been functioning. PHYSICAL EXAMINATION: VITAL SIGNS: Temperature 96.8 degrees Fahrenheit, heart rate 68 per minute and respiratory rate 18 per minute. Blood pressure 152/78 mmHg and oxygen saturation 98% on room air. Intake and output records are incomplete, however for the last 24 hours her intake is recorded as 1515. HEENT: Head is atraumatic. NECK: Supple without JVD or thyroid enlargement. HEART: Heart sounds are regular. LUNGS: Clear to auscultation. ABDOMEN: Soft and nontender. Colostomy is functioning. EXTREMITIES: Without any cyanosis or clubbing. LABORATORY DATA: Todays labs shows a hemoglobin of 9.0 and hematocrit 29. Sodium 138, potassium 4.8, CO2 25, BUN 24 and creatinine 1.39. PROBLEMS: 1. Acute renal failure superimposed on chronic kidney disease. Kidney function has improved significantly. I do not feel the patient needs further IV fluid and we should encourage her for oral intake. Her electrolytes are within normal range. 2. Anemia, at present her anemia is stable. We have already given her a dose of Aranesp as her iron studies were appropriate. 3. Atrial fibrillation, at present the patient seems to be doing well and she remains on anticoagulation with IV Heparin drip. I will defer all the decisions to Cardiology and Hospitalist Service. 4. Disposition: From a renal standpoint, the patient is doing well. I do not feel that she needs any further Nephrology follow-up. I am signing off her case. Please do not hesitate to call back should you need any further assistance. TIA
--- NOTE | 2020-01-18 17:15 | IPNPDOC ---
Subjective Date Seen The patient was seen on 01/18/20. Subjective Chief Complaint/HPI Mrs. Abrams is a 74 year old female here with fatigue and anorexia found to have severe DINA secondary to poor oral intake. No other events overnight. Denies fever/chills, chest pain, shortness of breath, abdominal pain, diarrhea, or dysuria Constitutional: Denies: Chills, Fever ENT: Denies: Head Aches Pulmonary: Denies: Dyspnea Cardiovascular: Denies: Chest Pain Gastrointestinal: Denies: Nausea, Abdominal Pain Genitourinary: Denies: Dysuria Objective Physical Examination General Exam: Positive: Alert, Cooperative, No Acute Distress Eye Exam: Positive: EOMI, Sclera icteric Neck Exam: Positive: Supple Chest Exam: Positive: Clear to auscultation; Negative: Rales, Rhonchi, Wheezing Heart Exam: Positive: Rate Normal; Negative: Regular Rhythm Abdomen Exam: Positive: Normal bowel sounds Skin Exam: Positive: Nl turgor and temperature Neuro Exam: Positive: Normal Speech, Cranial Nerves 3-12 NL Psych Exam: Positive: Mental status NL, Mood NL Assessment /Plan Assessment Mrs. Abrams is a 74 year old female with history of UC (s/p colectomy and right sided ileostomy) here with severe DINA and hyperkalemia secondary to poor oral intake. Renal function improved with fluids and she did not need pressors. Appetite is better with Marinol. Otherwise, she had Afib with RVR that now has been rate controlled, and she has transitioned to apixaban. Renal function is not at baseline at this time. Plan/VTE VTE Prophylaxis Ordered?: Yes Plan 1. Acute renal failure. Most likely secondary to hypovolemia secondary to poor oral intake. Will encourage PO intake. Creatinine slowing approaching pre admi ssion level. 2. Poor oral intake. Touch based with her outpatient GI physician. He feels that it may be more from oropharyngeal dysphagia. Speech/swallow recommended mechanical soft diet. Outpatient PCP did not want Megace due to VTE risk. On Marinol. Will touch base with pharmacy to see if insurance will cover. 3. New onset atrial fibrillation with RVR. Rhythm control strategy since she was severely dehydrated on admission. Currently on PO amiodarone. On apixaban for stroke ppx. There was concern for PE as cause of new onset atrial fibrillation. No CTA due to DINA, V-Q scan demonstrates low probability for PE. Echocardiogram demonstrated hyperdynamic heart 4. Hyperkalemia. Secondary to DINA. On admission 7.2. Now 4.5. Continue to monitor 5. Hypovolemic shock due to volume depletion. Lactic acid resolved and renal function improved with fluids. Urine culture negative. Ceftriaxone was d iscontinued. Blood cultures negative to date. Continue to monitor. 6. Depression. Weaning off Fluoxetine due to concerns of anorexia from Fluoxetine. Yesterday transitioned from 40mg daily to 20mg daily. Will continue for a week, then discontinue completely 7. DVT ppx. Apixaban 8. Protein calorie malnutrition. Mild. November weighted 62 to 69 kg, early hospitalization 56 to 59 kg. Total protein and albumin are low VS, [facility]&O[facility] Vital Signs/I&O Vital Signs Date Time Temp Pulse Resp B/P (MAP) Pulse Ox O2 Delivery O2 Flow Rate FiO2 01/18/20 09:00 62 139/66 01/18/20 08:00 98.4 6 94 Room Air 01/14/20 10:26 2.0 I&O- Last 24 Hours up to 6 AM 01/18/20 06:00 Intake Total 420 ml Output Total 0 ml Balance 420 ml Laboratory Data 24H LABS Laboratory Tests 2 01/18/20 04:23: Immature Granulocyte % (Auto) 0.3, Neutrophils (%) (Auto) 46.2, Lymphocytes (%) (Auto) 38.1, Monocytes (%) (Auto) 9.6H, Eosinophils (%) (Auto) 5.2H, Basophils (%) (Auto) 0.6, Neutrophils # (Auto) 3.0, Lymphocytes # (Auto) 2.4, Monocytes # (Auto) 0.6, Eosinophils # (Auto) 0.3, Basophils # (Auto) 0.0, Nucleated Red Blood Cells % (auto) 0.0, Anion Gap 2L, Glomerular Filtration Rate 48.9, Calcium Level 8.9 CBC/BMP Laboratory Tests 01/18/20 04:23 Microbiology Microbiology 01/13/20 Stool Occult Blood (RANDI) - Final, Complete 01/12/20 Stool Occult Blood (RANDI) - Final, Complete 01/11/20 Urine Culture - Final, Complete 01/11/20 Blood Culture - Final, Complete NO GROWTH AFTER 5 DAYS 9/6/20 Blood Culture - Final, Complete NO GROWTH AFTER 5 DAYS MANUELITO CASTLE DO Jan 18, 2020 17:15
[2020-01-18] MEDS: DRONABINOL 2.5 MG CAP (MARINOL) PO SCH (18:17)
[2020-01-18 20:00] VITALS: BP 140/80
[2020-01-18] MEDS: ATORVASTATIN 10 MG TAB PO SCH (20:46)
[2020-01-19 04:00] VITALS: BP 127/63
[2020-01-19] MEDS: SLF 3 ML SYR IV SCH ×2 (05:13→11:38)
[2020-01-19 06:06] LABS: BASO # 0.1 10^3/uL (0.0-0.2); BASO % 0.9 % (0.0-1.0); EOS # 0.3 10^3/uL (0.0-0.5); EOS % 5.2 % (0.0-3.0); HEMATOCRIT 32.7 % (36.0-47.0); HEMOGLOBIN 9.9 g/dl (12.0-15.5); LYMPH # 2.3 10^3/uL (1.5-5.0); LYMPH % 34.5 % (24.0-44.0); MEAN CORPUSCULAR HEMOGLOBIN 29.3 pg (27.0-33.0); MEAN CORPUSCULAR HGB CONC 30.3 g/dl (32.0-36.5); MEAN CORPUSCULAR VOLUME 96.7 fl (80.0-96.0); MONO # 0.6 10^3/uL (0.0-0.8); MONO % 9.3 % (0.0-5.0); NEUTROPHILS # 3.3 10^3/uL (1.5-8.5); NEUTROPHILS % 49.9 % (36.0-66.0); PLATELET COUNT, AUTOMATED 167 10^3/uL (150-450); RED BLOOD COUNT 3.38 10^6/uL (4.00-5.40); WHITE BLOOD COUNT 6.6 10^3/uL (4.0-10.0)
[2020-01-19 06:29] LABS: CALCIUM LEVEL 8.6 MG/DL (8.8-10.2); CREATININE FOR GFR 1.15 MG/DL (0.55-1.30); GLOMERULAR FILTRATION RATE 49.4 (>39); POTASSIUM SERUM 4.1 MEQ/L (3.5-5.1)
[2020-01-19] MEDS ORDERED: AMIO200T3 PO (07:21)
[2020-01-19] MEDS ORDERED: DRON2.5C11 PO ×2 (07:21→12:14)
[2020-01-19] MEDS ORDERED: ELIQ2.5T PO (07:21)
[2020-01-19] MEDS ORDERED: FLUO20CA22 PO (07:21)
[2020-01-19 08:00] VITALS: BP 132/63
[2020-01-19 08:43] VITALS: BP 132/63
[2020-01-19] MEDS: SUCRALFATE SUSP 1GM/10ML UD PO SCH ×2 (08:43→11:40)
[2020-01-19] MEDS: PANTOPRAZOLE 40MG TAB (PROTONIX) PO SCH (08:43)
[2020-01-19] MEDS: FLUoxetine 20 MG CAP PO SCH (08:43)
[2020-01-19] MEDS: APIXABAN 2.5 MG TAB (ELIQUIS) PO SCH (08:43)
[2020-01-19] MEDS: AMIODARONE 200 MG TAB (PACERONE) PO SCH (08:43)
[2020-01-19] MEDS: amLODIPine 5 MG TAB PO SCH (08:43)
[2020-01-19 11:59] VITALS: BP 156/71
--- NOTE | 2020-01-19 20:40 | DS.PDOC ---
Discharge Summary General Date of Admission Jan 11, 2020 at 15:28 Date of Discharge Jan 19, 2020 Attending Physician: MANUELITO CASTLE DO Specialist/Consultants [facility], Dr. Miller/Dr. [facility], Dr. Aquino ICU, Dr. Meade Discharge Summary PROCEDURES PERFORMED DURING STAY: Central line placement ADMITTING DIAGNOSES: 1. Acute Renal Failure 2. Hyperkalemia 3. Lactic acidosis 4. Hyponatremia 5. UTI 6. Hyperlipidemia DISCHARGE DIAGNOSES: 1. Acute renal failure 2. Anorexia 3. New onset atrial fibrillation with RVR 4. Hyperkalemia 5. Hypovolemic shock due to volume depletion 6. Protein calorie malnutrition COMPLICATIONS/CHIEF COMPLAINT: Acute Renal Failure Hyperkalemia. HISTORY OF PRESENT ILLNESS: Mrs. Abrams is a 74 year old female with history of ulcerative colitis (with right sided ileostomy s/p colectomy) here for hypovolemic shock. She had not been able to tolerate PO food or hydration for 2 weeks. She was given fluids, but did not respond and was given Levophed. She also went into atrial fibrillation with RVR. ICU and Cardiology were consulted. HOSPITAL COURSE: During her hospitalization, she was put on amiodarone which con trolled her rhythm, and she was adequately hydrated (creatine was initially 19, but with just hydration, creatine dropped to 1.15 by the end of admission). Levophed was able to be weaned off. Initially thought to be UTI, but urine culture was negative. Levophed was discontinued, central line removed, and she was transferred to the floor. She continued to be anorexic, and food was not appetizing. She did not eat food that was brought from home either. I touch based with her GI physician who thought it was more from oropharyngeal dysphagia. Speech/swallow recommended mechanical soft diet. Examining her medication list, we suspected that Prozac may be causing her anorexia. Plan to wean off Prozac by cutting in half to 20mg qD for one week, then completely off. Started her on dronabinol in the mean time which was effective in both mood and appetite. She started to eat and drink again. Gave instructions to stop the Prozac in four more days and attempt to try stopping the dronabinol to see if appetite returns. If appetite does not return, recommend to go back on dronabinol for a week and try going off it again. Today, she was feeling well. Denied fever/chills, chest pain, dyspnea, abdominal pain, or dysuria. She felt ready for home and was discharged. DISCHARGE MEDICATIONS: Please see below. ALLERGIES: Please see below. PHYSICAL EXAMINATION ON DISCHARGE: VITAL SIGNS: Please see below. GENERAL: Comfortable, in no apparent distress HEENT: Head normocephalic/atraumatic, EOMI, sclera clear NECK: Supple CARDIOVASCULAR EXAMINATION: Regular rate and rhythm RESPIRATORY EXAMINATION: Lungs clear to auscultation bilaterally ABDOMINAL EXAMINATION: Soft, nontender, normal bowel sounds EXTREMITIES: Mild bilateral pitting edema NEUROLOGICAL EXAMINATION: CN 3-12 grossly intact PSYCHIATRIC EXAMINATION: Appears more cheerful than before, normal mood and affect LABORATORY DATA: Please see below. PROGNOSIS: Stable ACTIVITY: [As tolerated]. DIET: As tolerated DISCHARGE PLAN: Home DISPOSITION: Home, Self-Care. DISCHARGE INSTRUCTIONS: 1. Follow up with your PCP in a week 2. 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 Stop Prozac in 4 days. Then attempt stopping dronabinol. If appetite still has not returned. Continue dronabinol and try again the following week. DISCHARGE CONDITION: [Stable]. Total time spent on discharge planning, discharge summary, and medication r econciliation 50 minutes Vital Signs/I&Os Vital Signs Date Time Temp Pulse Resp B/P (MAP) Pulse Ox O2 Delivery O2 Flow Rate FiO2 01/19/20 11:59 98.9 54 18 156/71 (99) 94 Room Air 01/14/20 10:26 2.0 I&O- Last 24 Hours up to 6 AM 01/19/20 06:00 Intake Total 120 ml Balance 120 ml Laboratory Data Labs 24H Laboratory Tests 2 01/19/20 05:33: Immature Granulocyte % (Auto) 0.2, Neutrophils (%) (Auto) 49.9, Lymphocytes (%) (Auto) 34.5, Monocytes (%) (Auto) 9.3H, Eosinophils (%) (Auto) 5.2H, Basophils (%) (Auto) 0.9, Neutrophils # (Auto) 3.3, Lymphocytes # (Auto) 2.3, Monocytes # (Auto) 0.6, Eosinophils # (Auto) 0.3, Basophils # (Auto) 0.1, Nucleated Red Blood Cells % (auto) 0.0, Anion Gap 7L, Glomerular Filtration Rate 49.4, Calcium Level 8.6L CBC/BMP Laboratory Tests 01/19/20 05:33 Microbiology Microbiology 01/13/20 Stool Occult Blood (RANDI) - Final, Complete 01/12/20 Stool Occult Blood (RANDI) - Final, Complete 01/11/20 Urine Culture - Final, Complete 01/11/20 Blood Culture - Final, Complete NO GROWTH AFTER 5 DAYS 01/11/20 Blood Culture - Final, Complete NO GROWTH AFTER 5 DAYS Discharge Medications Scheduled Allopurinol (Allopurinol) 100 Mg Tablet, 100 MG PO QHS, (Reported) Amiodarone HCl (Amiodarone HCl) 200 Mg Tablet, 400 MG PO BID Amlodipine Besylate (Amlodipine Besylate) 5 Mg Tablet, 5 MG PO DAILY, (Reported) Apixaban (Eliquis) 2.5 Mg Tablet, 2.5 MG PO BID Atorvastatin Calcium (Atorvastatin Calcium) 10 Mg Tablet, 10 MG PO QHS, (Reported) Dronabinol (Dronabinol) 2.5 Mg Capsule, 2.5 MG PO ACS Fluoxetine Hcl (Fluoxetine HCl) 20 Mg Capsule, 20 MG PO DAILY Pantoprazole Sodium (Pantoprazole Sodium) 40 Mg Tablet.dr, 40 MG PO BID, (Reported) Scheduled PRN Ondansetron (Ondansetron Odt) 4 Mg Tab.rapdis, 4 MG PO Q8H PRN for NAUSEA OR VOMITING, (Reported) Allergies Coded Allergies: No Known Allergies (Unverified , 01/11/20) MANUELITO CASTLE DO Jan 19, 2020 20:39
--- NOTE | 2020-01-20 17:00 | ECGEPIP ---
[facility] Test Date: 2020-01-11 Pat Name: JENNIFER WORKMAN Department: Room: [place] [id number] Gender: Female Hog Ringer: YOLIS : 1945 Requested By: SCOTTY POPE Order Number: [id number] Reading MD: Gabriele Paul Measurements Intervals [place] Rate: 147 P: [place]: 0 QRS: 74 QRSD: 110 T: -33 QT: 307 QTc: 481 Interpretive Statements ATRIAL FIBRILLATION WITH RAPID VENTRICULAR RESPONSE POSSIBLE INFERIOR MYOCARDIAL INFARCTION, OF INDETERMINATE AGE ABNORMAL ECG NONSPECIFIC ST/T ABNORMALITY NO PRIOR SEE SCANNED DOWNTIME REPORT
--- NOTE | 2020-01-20 21:28 | ECGEPIP ---
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
--- NOTE | 2020-01-29 17:14 | RO ---
DATE OF OPERATION: 01/11/2020 PREOPERATIVE DIAGNOSIS: Hypovolemia. POSTOPERATIVE DIAGNOSIS: Hypovolemia. PROCEDURE: Right subclavian CVP placement. PROCEDURE NOTE: The patient was seen in the Intensive Care Unit critically ill, hypotensive and informed consent was obtained. The patient was placed in supine position. The skin overlying the right subclavian vein was prepped with ChloraPrep and draped in sterile fashion. A 25-gauge needle was used to raise a skin wheal with 1% Lidocaine. Thereafter a 17-gauge introducer needle was placed in through the skin and then to the right subclavian vein. Free return of venous blood was obtained. A vascular tip guidewire was advanced, small incision was made adjacent to the guidewire, triple lumen catheter placed over the guidewire to distance of 17 cm. The catheter was sewn in place and a sterile dressing applied. Postprocedural chest x-ray confirmed adequate placement. Initial central venous pressure was 6. There were no complications. [facility]
--- NOTE | 2020-02-03 14:33 | REP ---
V/Q SCAN TECHNIQUE: Following the intravenous administration of 5.4 mCi Technetium-99m tagged MAA and the inhalation of 1 mCi Technetium-99m DTPA aerosol, multiple images of the lung calvillo are obtained in various projections. FINDINGS: Matching defect is seen in the left lung base due to left ventricle of the heart. I do not see any significant areas of V/Q mismatch. There is a low probability of pulmonary embolism. IMPRESSION: Low probability of pulmonary embolism. MTDD
== END 2020-01-19 15:15 | disposition home or self-care (01) | DRG 682 ==
LOC: M ED 11:32 → EDBD 11:32 → M ED INP 15:28 → M ICU 17:18 → M PCU 01-14 13:05
PROVIDERS: ADMIT Family Medicine; ATTEND Internal Medicine
DX: N17.9 Acute kidney failure, unspecified (principal); R57.1 Hypovolemic shock; E87.2 Acidosis; E87.1 Hypo-osmolality and hyponatremia; E44.1 Mild protein-calorie malnutrition; E87.5 Hyperkalemia; E78.5 Hyperlipidemia, unspecified; R53.83 Other fatigue; I12.9 Hypertensive chronic kidney disease with stage 1 through stage 4 chronic kidney disease, or unspecified chronic kidney disease; N18.3 Chronic kidney disease, stage 3 (moderate); R13.12 Dysphagia, oropharyngeal phase; R63.0 Anorexia; E83.39 Other disorders of phosphorus metabolism; I95.9 Hypotension, unspecified; F32.9 Major depressive disorder, single episode, unspecified; Z87.442 Personal history of urinary calculi; Z90.49 Acquired absence of other specified parts of digestive tract; Z93.2 Ileostomy status; Z79.899 Other long term (current) drug therapy

== ENCOUNTER 2020-05-15 14:15 | Inpatient (IN) | payer MEDICARE ==
[~2020-05-15] VITALS: Ht 167.6 cm; Wt 64.2 kg
[~2020-05-15 14:15] MED LIST changes: +AMIO200T3 PO; +DRON2.5C11 PO; +ELIQ2.5T PO; +FLUO20CA22 PO; +ONDA4TAB6 PO
[2020-05-15] MEDS ORDERED: NS 1,000 ML IV SCH ×2 (14:52→23:00)
--- NOTE | 2020-05-15 15:22 | REP ---
INDICATION: Altered Mental Status COMPARISON: 01/11/2020 TECHNIQUE: Portable AP view of the chest FINDINGS: The mediastinum and cardiac silhouette are stable and within normal limits for portable technique. The lung calvillo demonstrate chronic changes without acute consolidation, effusion, or pneumothorax. Skeletal structures are intact. IMPRESSION: No acute cardiopulmonary process appreciated. <Electronically signed by Jimbo Arita > 05/15/20 0633
[2020-05-15] MEDS ORDERED: escitalopram OR (15:48)
[2020-05-15] MEDS ORDERED: LISI10TA4 PO (15:48)
[2020-05-15 16:10] LABS: BASO % 0.5 % (0.0-1.0); HEMATOCRIT 36.4 % (36.0-47.0); HEMOGLOBIN 10.9 g/dl (12.0-15.5); LYMPH # 1.6 10^3/uL (1.5-5.0); LYMPH % 18.5 % (24.0-44.0); MEAN CORPUSCULAR HEMOGLOBIN 28.5 pg (27.0-33.0); MEAN CORPUSCULAR HGB CONC 29.9 g/dl (32.0-36.5); MONO # 0.5 10^3/uL (0.0-0.8); MONO % 6.2 % (0.0-5.0); NEUTROPHILS # 6.2 10^3/uL (1.5-8.5); NEUTROPHILS % 74.1 % (36.0-66.0); PLATELET COUNT, AUTOMATED 266 10^3/uL (150-450); RED BLOOD COUNT 3.83 10^6/uL (4.00-5.40); VENOUS BASE EXCESS -22.3 (-2.0-2.0); VENOUS HCO3 8.6 MEQ/L (23.0-27.0); VENOUS O2 SATURATION 75.4 % (60.0-80.0); VENOUS PARTIAL PRESSURE CO2 37.8 mmHg (38.0-50.0); VENOUS PARTIAL PRESSURE O2 44.8 mmHg (30.0-50.0); VENOUS PH 6.975 UNITS (7.330-7.430); VENOUS STANDARD HCO3 8.2 MEQ/L; VENOUS TOTAL CO2 9.8 MEQ/L (24.0-28.0); WHITE BLOOD COUNT 8.4 10^3/uL (4.0-10.0)
[2020-05-15 16:49] LABS: RSV AMPLIFICATION NEGATIVE (NEGATIVE)
[2020-05-15 16:59] LABS: ACETAMINOPHEN LEVEL < 2.0 UG/ML (10.0-30.0); ALBUMIN 4.4 GM/DL (3.2-5.2); ALT/SGPT 9 U/L (12-78); BILIRUBIN,DIRECT < 0.1 MG/DL (0.0-0.2); BILIRUBIN,TOTAL 0.4 MG/DL (0.2-1.0); BLOOD UREA NITROGEN 125 MG/DL (7-18); CALCIUM LEVEL 8.7 MG/DL (8.8-10.2); CARBON DIOXIDE LEVEL 11 MEQ/L (21-32); CHLORIDE LEVEL 101 MEQ/L (98-107); CPK CREATINE PHOSPHOKINASE 41 U/L (26-192); ETHYL ALCOHOL (ETHANOL) < 0.003 % (0.000-0.010); GLOMERULAR FILTRATION RATE 2.9 (>39); GLUCOSE, FASTING 99 MG/DL (70-100); MB/CK RELATIVE INDEX 2.44 (< OR =4); POTASSIUM SERUM 8.1 MEQ/L (3.5-5.1); SALICYLATE LEVEL < 1.7 MG/DL (5.0-30.0); SODIUM LEVEL 127 MEQ/L (136-145); THYROID STIMULATING HORMONE 0.937 uIU/ML (0.358-3.740); TROPONIN I < 0.02 NG/ML (< 0.10)
[2020-05-15] MEDS ORDERED: LEXA5TAB13 PO (17:27)
[2020-05-15] MEDS ORDERED: ELIQ5TAB PO (17:27)
--- NOTE | 2020-05-15 17:27 | REPVR ---
PROCEDURE INFORMATION: Exam: CT Head Without Contrast Exam date and time: 05/15/2020 5:00 PM Age: 74 years old Clinical indication: Altered mental status/memory loss TECHNIQUE: Imaging protocol: Computed tomography of the head without contrast. Radiation optimization: All CT scans at this facility use at least one of these dose optimization techniques: automated exposure control; mA and/or kV adjustment per patient size (includes targeted exams where dose is matched to clinical indication); or iterative reconstruction. COMPARISON: CT Head without contrast 11/11/2019 2:13 PM FINDINGS: Brain: No intracranial hemorrhage or extra-axial fluid collection. No evidence of mass effect or midline shift. Hrap-white matter differentiation is intact. Cerebral ventricles: No ventriculomegaly. Bones/joints: No acute osseus lesion or fracture. Paranasal sinuses: Visualized sinuses are unremarkable. No fluid levels. Mastoid air cells: Unremarkable. Soft tissues: Unremarkable. IMPRESSION: No acute intracranial pathology. Electronically signed by: Umesh Redding On 05/15/2020 17:27:34 PM
[2020-05-15] MEDS ORDERED: IBUP-1720 PO (17:29)
[2020-05-15] MEDS ORDERED: HumuLIN R (REGULAR) INSULIN (NovoLIN R) **100U/ML** PER UNIT IV ONE (17:30)
[2020-05-15] MEDS ORDERED: SOD POLYSTYRENE SULFONATE SUSP 15 GM/60 ML UD PO ONE (17:30)
[2020-05-15] MEDS ORDERED: DEXTROSE 50% 50 ML VIAL IV ONE (17:30)
[2020-05-15] MEDS ORDERED: SODIUM BICARBONATE 8.4% INJ 50 ML SYRINGE IV STA (17:37)
[2020-05-15] MEDS: SODIUM BICARBONATE 150 MEQ in STERILE WATER LITER BAG 1,000 ML IV SCH (18:33)
--- NOTE | 2020-05-15 19:02 | REPVR ---
PROCEDURE INFORMATION: Exam: CT Abdomen And Pelvis Without Contrast Exam date and time: 05/15/2020 5:38 PM Age: 74 years old Clinical indication: Other: Renal failure; Additional info: R/O obstruction in renal failure TECHNIQUE: Imaging protocol: Computed tomography of the abdomen and pelvis without contrast. Radiation optimization: All CT scans at this facility use at least one of these dose optimization techniques: automated exposure control; mA and/or kV adjustment per patient size (includes targeted exams where dose is matched to clinical indication); or iterative reconstruction. COMPARISON: CT ABD PELVIS W/O CONTRAST 01/11/2020 3:30 PM FINDINGS: Liver: Unremarkable. Gallbladder and bile ducts: Cholelithiasis without evidence of cholecystitis. Pancreas: Unremarkable. No ductal dilation. Spleen: Unremarkable. Adrenal glands: Normal. No mass. Kidneys and ureters: Multiple bilateral nonobstructive renal calyceal calculi, largest on the left measuring 1.1 cm. No hydronephrosis. Stomach and bowel: Right-sided colostomy. Small bowel loops are unremarkable. Appendix: No evidence of appendicitis. Intraperitoneal space: No pneumoperitoneum. No significant fluid collection. Vasculature: Atherosclerotic calcifications of the aorta and major branches. Lymph nodes: No enlarged lymph nodes. Urinary bladder: Unremarkable as visualized. Reproductive: Unremarkable as visualized. Bones/joints: Multilevel degenerative changes of the visualized spine. No acute osseous lesion or fracture. Soft tissues: Unremarkable. IMPRESSION: 1. Multiple bilateral nonobstructive renal calyceal calculi, largest on the left measuring 1.1 cm. No hydronephrosis. 2. Cholelithiasis without evidence of cholecystitis. 3. Chronic findings, as above. Electronically signed by: Umesh Redding On 05/15/2020 19:02:59 PM
--- NOTE | 2020-05-15 19:22 | ECGEPIP ---
[facility] - ED Test Date: 2020-05-15 Pat Name: JENNIFER WORKMAN Department: Room: - Gender: Female Facing Baster Jumpbasting: BRYSON : 1945 Requested By: DAMION SCHWAB Order Number: [id number] Reading MD: Ian Smith Measurements Intervals [place] Rate: 70 P: -19 AK: 163 QRS: 46 QRSD: 137 T: -21 QT: 390 QTc: 423 Interpretive Statements SINUS RHYTHM INTRAVENTRICULAR CONDUCTION DELAY INFERIOR MYOCARDIAL INFARCTION, OF INDETERMINATE AGE NONSPECIFIC ST T WAVE CHANGES CW 01/11/20 RATE DECREASED INCREASE IN QRS DURATION NONSPECIFIC ST T WAVE CHANGES Electronically Signed on 05-15-2020 19:21:44 EST by Ian Smith
--- NOTE | 2020-05-15 21:03 | HPEPDOC ---
[facility] Medical History & Physical Date of Admission May 15, 2020 Date of Service: May 15, 2020 Attending Physician: HALIE WEINER MD History and Physical HISTORY OF PRESENT ILLNESS: 74 yo F with a hx of ulcerative colitis (w/ R-sided ileostomy, s/p colectomy), HTN, HLD, CKD III, nephrolithiasis and depression. She has a history of frequent admissions to [facility] for acute renal failure, hyperkalemia and shock. She was admitted in january for acute renal failure and hyperK+. Today, she presents with cc of weakness and nausea and vomiting and progressive fatigue. She states that she's had no appeitite and has not eaten or drank anything for the past 1.5 days but still has about a lot of output in her ostomy bag. On arrival to ED, her K+ is again very high at 8.1 and bicarb 11 and she's hypoNa+ likely due to dehydration . She acute a cr of 13.4 1 amp of bicarb given and kyexlaye x2 given along with insulin. She denies fevers, chills, chest pain, abdominal pain, and currently no n/v/d. PAST MEDICAL HISTORY: 1, Ulcerative colitis 2. HTN 3. CKD Stage III 4. Nephrolithiasis 5. Depression PAST SURGICAL HISTORY: 1. Colectomy with R sided ileostomy SOCIAL HISTORY: States that she lives with her son. 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 ALLERGIES: Please see below. HOME MEDICATIONS: Please see below. PHYSICAL EXAMINATION: VITAL SIGNS: see below please GENERAL APPEARANCE: fatigued. HEENT: very dry mucous membranes, PERRLA. CARDIOVASCULAR: RRR, normal S1, S2. LUNGS: lungs CTAB, no wheezing, rhonci or rales ABDOMEN: soft, non tender, non distended. R ileostomy. Stoma bag attached. MUSCULOSKELETAL: no obvious joint deformity. no knee effusions EXTREMITIES: no edema. NEUROLOGICAL: no focal neuro deficits, CN2-12 intact. PSYCHIATRIC: calm, cooperative, pleasant. LABORATORY DATA: See below. IMAGING: reviewed MICROBIOLOGY: Please see below. ASSESSMENT AND PLAN: 74 yo F with a hx of ulcerative colitis (w/ R-sided ileostomy, s/p colectomy), HTN, HLD, CKD III, nephrolithiasis and depression. She has a history of frequent admissions to [facility] for acute renal failure, hyperkalemia and shock. She was admitted in january for acute renal failure and hyperK+. Today, she presents with cc of weakness and nausea and vomiting and progressive fatigue. She states that she's had no appeitite and has not eaten or drank anything for the past 1.5 days but still has about a lot of output in her ostomy bag. On arrival to ED, her K+ is again very high at 8.1 and bicarb 11 and she's hypoNa+ likely due to dehydration . She acute a cr of 13.4 1 amp of bicarb given and kyexlaye x2 given along with insulin. will consult nephrology for further recommendations. Will start on bicarb gtt and give 2 L NS boluses #Acute Renal Failure - likely due to hypovolemia from poor PO intake - Cr 13.4. BUN 125 - Will give 2 NS boluses and then c/w bicarb gtt - will continue to monitor her labs closely - Held her lisinopril - nephrology consult, Dr. Dong- appreciate recommendations Metabolic Anion Gap Acidosis - hypovolemia, renal failure - AG of 15 - c/w bicarb drip Hyperkalemia - K 8.1 on arrival with EKG changes - gave kyexylate x2, insulin - pending repeat bmp #Hyponatremia - NA 127 - IVF with NS boluses x2 - c/w with bicarb gtt - trend BMP #Hyperlipidemia - continue statin DVT ppx: eliquis renally dose 2.5mg PO BID GI ppx: protonix fluids: 2 L NS boluses then c/w bicarb gtt Diet: NPO Code status: full Vital Signs Vital Signs Date Time Temp Pulse Resp B/P (MAP) Pulse Ox O2 Delivery O2 Flow Rate FiO2 05/15/20 15:07 Room Air 05/15/20 15:07 05/15/20 14:15 97.2 70 16 98 Laboratory Data Labs 24H Laboratory Tests 2 05/15/20 15:45: Immature Granulocyte % (Auto) 0.7, Neutrophils (%) (Auto) 74.1H, Lymphocytes (%) (Auto) 18.5L, Monocytes (%) (Auto) 6.2H, Eosinophils (%) (Auto) 0.0, Basophils (%) (Auto) 0.5, Neutrophils # (Auto) 6.2, Lymphocytes # (Auto) 1.6, Monocytes # (Auto) 0.5, Eosinophils # (Auto) 0.0, Basophils # (Auto) 0.0, Nucleated Red Blood Cells % (auto) 0.0, Blood Gas Bicarbonate Standard 8.2, Venous Blood pH 6.975L, Venous Blood Partial Pressure CO2 37.8L, Venous Blood Partial Pressure O2 44.8, Venous Blood Total Carbon Dioxide 9.8L, Venous Blood HCO3 8.6L, Venous Blood Oxygen Saturation 75.4, Venous Blood Base Excess -22.3L, Anion Gap 15, Glomerular Filtration Rate 2.9L, Lactic Acid Level 0.9, Calcium Level 8.7L, Total Bilirubin 0.4, Direct Bilirubin < 0.1, Aspartate Amino Transf (AST/SGOT) < 3L, Alanine Aminotransferase (ALT/SGPT) 9L, Alkaline Phosphatase 99, Ammonia 11, Total Creatine Kinase 41, Creatine Kinase MB 1.0, Creatine Kinase MB Relative Index 2.44, Troponin I < 0.02, Total Protein 8.0, Albumin 4.4, Albumin/Globulin Ratio 1.2, Thyroid Stimulating Hormone (TSH) 0.937, Salicylates Level < 1.7L, Acetaminophen Level < 2.0L, Ethyl Alcohol Level < 0.003, Coronavirus (COVID- 19)(PCR) NEGATIVE, Influenza Type A (RT-PCR) NEGATIVE, Influenza Type B (RT-PCR) NEGATIVE, Respiratory Syncytial Virus (PCR) NEGATIVE CBC/BMP Laboratory Tests 05/15/20 15:45 Home Medications Scheduled Amlodipine Besylate (Amlodipine Besylate) 5 Mg Tablet, 2.5 MG PO DAILY Apixaban (Eliquis) 5 Mg Tablet, 5 MG PO BID Atorvastatin Calcium (Atorvastatin Calcium) 10 Mg Tablet, 10 MG PO QHS Escitalopram Oxalate (Lexapro) 5 Mg Tablet, 5 MG PO DAILY Lisinopril (Lisinopril) 10 Mg Tablet, 10 MG PO BID Pantoprazole Sodium (Pantoprazole Sodium) 40 Mg Tablet.dr, 40 MG PO BID Scheduled PRN Ibuprofen (Ibuprofen) 200 Mg Tablet, 400 MG PO Q6H PRN for HEADACHE Allergies Coded Allergies: No Known Allergies (Unverified , 01/11/20) A-FIB/CHADSVASC A-FIB History Current/History of A-Fib/PAF?: Yes Current PO Anticoag Therapy: Yes GME ATTESTATION GME ATTESTATION My faculty preceptor for this patient encounter was physically present during the encounter and was fully available. All aspects of the patient interview, exa mination, medical decision making process, and medical care plan development were reviewed and approved by the faculty preceptor. The faculty preceptor is aware and concurs with the plan as stated in the body of this note and will attest to such by his/her cosignature. Tristin Islas DO May 15, 2020 18:01
[2020-05-15] MEDS ORDERED: IBUPROFEN 200MG TAB PO PRN (21:15)
[2020-05-15] MEDS ORDERED: NS 1,000 ML IV ONE ×2 (21:30→22:30)
[2020-05-15 21:43] LABS: BASO % 0.4 % (0.0-1.0); HEMATOCRIT 32.8 % (36.0-47.0); HEMOGLOBIN 10.3 g/dl (12.0-15.5); LYMPH # 2.4 10^3/uL (1.5-5.0); LYMPH % 31.1 % (24.0-44.0); MEAN CORPUSCULAR HEMOGLOBIN 28.9 pg (27.0-33.0); MEAN CORPUSCULAR HGB CONC 31.4 g/dl (32.0-36.5); MEAN CORPUSCULAR VOLUME 92.1 fl (80.0-96.0); MONO # 0.8 10^3/uL (0.0-0.8); NEUTROPHILS # 4.3 10^3/uL (1.5-8.5); PLATELET COUNT, AUTOMATED 251 10^3/uL (150-450); RED BLOOD COUNT 3.56 10^6/uL (4.00-5.40); WHITE BLOOD COUNT 7.6 10^3/uL (4.0-10.0)
[2020-05-15 22:23] LABS: CALCIUM LEVEL 8.8 MG/DL (8.8-10.2); CREATININE FOR GFR 13.3 MG/DL (0.55-1.30); GLOMERULAR FILTRATION RATE 2.9 (>39); POTASSIUM SERUM 6.1 MEQ/L (3.5-5.1)
[2020-05-15] MEDS: APIXABAN 2.5 MG TAB (ELIQUIS) PO SCH (22:42)
[2020-05-15] MEDS: ATORVASTATIN 10 MG TAB PO SCH (22:42)
[2020-05-15] MEDS ORDERED: DEXTROSE 50% 50 ML SYRINGE IV STA (23:16)
[2020-05-15] MEDS ORDERED: HumuLIN R (REGULAR) INSULIN (NovoLIN R) **100U/ML** PER UNIT IV STA (23:16)
[2020-05-15] MEDS ORDERED: ALBUTEROL SULFATE 2.5 MG/0.5 ML INH NEB SOLN NEB ONE (23:30)
[2020-05-16] VITALS (22 sets, daily range): BP systolic 83–118; BP diastolic 47–58
[2020-05-16] MEDS ORDERED: SODIUM CHLORIDE 0.9% 1000ML IV ONE (03:15)
[2020-05-16 03:38] LABS: CALCIUM LEVEL 7.4 MG/DL (8.8-10.2); GLOMERULAR FILTRATION RATE 3.6 (>39); POTASSIUM SERUM 4.6 MEQ/L (3.5-5.1)
[2020-05-16] MEDS: SODIUM BICARBONATE 150 MEQ in STERILE WATER LITER BAG 1,000 ML IV SCH (04:12)
[2020-05-16 06:19] LABS: ABG BASE EXCESS -18.9 (-2.0-2.0); ABG HCO3 8.2 MEQ/L (22.0-26.0); ABG O2 SATURATION 97.4 % (95.0-99.0); ABG PARTIAL PRESSURE CO2 24.1 mmHg (35.0-45.0); ABG STANDARD HCO3 9.8 MEQ/L (22.0-26.0)
[2020-05-16 06:20] LABS: ABG pH (ARTERIAL) 7.151 UNITS (7.350-7.450)
[2020-05-16] MEDS ORDERED: NS 500 ML IV ONE (08:00)
[2020-05-16] MEDS: ESCITALOPRAM OXALATE 5MG TABLET (LEXAPRO) PO SCH (09:00)
[2020-05-16] MEDS ORDERED: PHENYLEPHRINE HCL INJ 50 MG in D5W 495 ML IV SCH ×3 (09:00→21:00)
--- NOTE | 2020-05-16 09:00 | CR ---
CONSULTATION DATE: 05/15/2020 REQUESTING PHYSICIAN: Dr. Linda Sy CONSULTING PHYSICIAN: Dr. Dong REASON FOR CONSULTATION: Management of acute renal failure and hyperkalemia. CHIEF COMPLAINT: The patient presented to the hospital today with weakness, shortness of breath and increased ostomy output. HISTORY OF PRESENT ILLNESS: Lakisha Abrams is a 74-year-old female with past medical history of chronic kidney disease stage 3, baseline creatinine of around 1.2 as of last year, history of recurrent acute renal failure in the past and previously she has been admitted every couple of months with acute renal failure secondary to dehydration and high ostomy output. This time again, she was brought in by family members because of weakness, high ostomy output. Further lab evaluation in the emergency room showed that patient was in acute renal failure. Her creatinine was more than 13. She was hyperkalemic. Her potassium was more than 8. She was in metabolic acidosis. The patient was given IV bicarb 1 amp and started on bicarb drip and nephrology service was called for further help in the management of this patient. Since the patient had critical labs, she needed my immediate attention. She was emergently seen by myself in the emergency room. Her son was present at the bedside. The patient was able to provide me with a history. The patient herself denied any fevers or chills. She denies any history of hematuria. She does report that ostomy output was a little bit more than usual. PAST MEDICAL HISTORY: 1. Chronic kidney disease, stage 3. 2. History of right lower quadrant ileostomy status. 3. Atrial fibrillation. 4. History of hypertension. PAST SURGICAL HISTORY: History of right lower quadrant ileostomy secondary to ulcerative colitis. ALLERGIES: No known drug allergies. FAMILY HISTORY: No significant family history of end-stage renal disease requiring hemodialysis. SOCIAL HISTORY: The patient lives at home. She denies any smoking, illicit drug abuse or alcohol abuse. REVIEW OF SYSTEMS: Constitutional: She denies any fevers or chills. Eyes: She denies any blurry vision, double vision. ENT: She denies any dysphagia, odynophagia. Cardiovascular: She denies any chest pain or palpitation. Respiratory: She denies any shortness of breath. GI: She reports a little bit higher ostomy output. Genitourinary: She reports decreased urine output. Musculoskeletal: She denies any muscle aches and pains. Skin: She denies any rashes or ulcers. Psych: She denies any depression or anxiety. Hematological/Oncological: She denies any easy bleeding or bruising. MEAL ATTENDANT: She denies any strokes or seizures. All other review of systems is negative. PHYSICAL EXAMINATION: VITAL SIGNS: Temperature is 97.2 degrees Fahrenheit, blood pressure was 110/49. Pulse is 70, respiratory rate of 16, saturating 98% on room air. HEAD AND NECK: Extraocular muscles are intact. Pupils are equally round and reactive to light. Mucous membranes are dry. Neck is supple. There is no JVD. CARDIOVASCULAR: S1, S2, regular rate. EXTREMITIES: No edema of the bilateral lower extremities. RESPIRATORY: Chest is clear to auscultation bilaterally. Bilateral equal air entry. No rales or rhonchi. ABDOMEN: Soft, positive bowel sounds. Right lower quadrant ileostomy with liquid stools. Old surgical scars in the abdomen were noted. GENITOURINARY: Bladder is nonpalpable. MUSCULOSKELETAL: No clubbing or cyanosis. Pulses are 2+. SKIN: The patient has decreased skin turgor indicating volume depletion. MEAL ATTENDANT: No focal deficits. Power is 5/5 in all extremities. LABORATORY DATA: CBC showed a WBC of 7.6, hemoglobin 10.3, platelets 251. VBG showed a pH of 6.97. BNP showed sodium 127, potassium 8.1, chloride 110, bicarb is 11, BUN 125. Creatinine is 13.4. Lactic acid 0.9. Calcium is 8.7. AST less than 3. ALT is 9. Alk phos is 99. Ammonia is 11. Albumin is 4.4. Toxicology is negative for salicylate and alcohol and acetaminophen. Microbiology: No cultures are available at this time. IMAGING: A CT scan of the abdomen and pelvis was done which showed multiple bilateral nonobstructive renal caliceal calculi, largest on the left measuring 1.1 cm. No hydronephrosis. Cholelithiasis without cholecystitis. HOME MEDICATIONS: The patient's home medications include: 1. Amlodipine 2.5 mg p.o. daily. 2. Eliquis 5 mg p.o. twice a day. 3. Lipitor 10 mg q.h.s. 4. Lexapro 5 mg p.o. daily. 5. Ibuprofen 400 mg q.6 hour p.r.n. headache. 6. Lisinopril 10 mg p.o. twice a day. 7. Protonix 40 mg p.o. twice a day. ASSESSMENT AND PLAN: 1. Acute renal failure. It is most likely secondary to a combination of use of lisinopril and ibuprofen and high output ostomy. The patient is volume depleted. She has been given normal saline two liters bolus. The medical team has already ordered D5W with 150 mEq bicarb at 125 mL an hour. Avoid further use of TIFFANY inhibitors or NSAIDs at this time. I am also stopping the amlodipine at this time. 2. History of hypertension. The patient is in renal failure. She is hypotensive. No need of amlodipine. Avoid further use of TIFFANY inhibitors in the future as well. 3. Hyperkalemia. It is secondary to use of TIFFANY inhibitors and acute renal failure along with metabolic acidosis. Continue aggressive fluid hydration and administration of bicarb containing fluid. Potassium level should start improving once the patient starts making urine and acidosis gets better. 4. High anion gap metabolic acidosis. It is secondary to high output ostomy and acute renal failure. Bicarb containing fluid has already been started and repeat BMP showed bicarb level is improving and anion gap is getting better. 5. History of intermediate use of anticoagulation. The patient was on Eliquis. Dose has been decreased adequately by the medical team because of acute renal failure. 6. Hyponatremia. The patient came in with a sodium of 127. This is hypovolemic hyponatremia. Sodium level should improve with improvement in the renal function. Thank you for involving me in the care of this patient. I shall be happy to follow the patient along with you tomorrow morning. No urgent need of hemodialysis at this time. I am hopeful that with IV fluid hydration, the patient's renal function should improve.
--- NOTE | 2020-05-16 09:23 | REP ---
INDICATION: CENTRAL LINE PLACEMENT COMPARISON: None. TECHNIQUE: Portable AP view of the chest FINDINGS: The mediastinum and cardiac silhouette are stable and within normal limits for portable technique. Right IJ line with tip in the SVC. Lung calvillo cannot exclude a mild increased interstitial infiltrate and clinical correlation is recommended. No discrete focal consolidation, effusion or pneumothorax. IMPRESSION: 1. Right IJ line with tip in the SVC. 2. Diffusely increased interstitial markings raising the possibility of interstitial infiltrate. <Electronically signed by Jimbo Arita > 05/16/20 1693
[2020-05-16] MEDS: PANTOPRAZOLE 40MG VIAL (C9113 PER 1) IV SCH (09:33)
[2020-05-16] MEDS: APIXABAN 2.5 MG TAB (ELIQUIS) PO SCH ×2 (09:34→20:58)
--- NOTE | 2020-05-16 10:00 | IPNPDOC ---
Date Seen The patient was seen on 05/16/20. Progress Note Central line placement procedure note. INDICATION: Hypotension requiring pressors PROCEDURE FAN BLADE TRUER: Haile Weiner CONSENT: Consent was obtained from patient prior to the procedure. Indications, risks, and benefits were explained at length. PROCEDURE SUMMARY: A time out was performed. My hands were washed immediately prior to the procedure. I wore a surgical cap, mask with protective eyewear, full gown and sterile gloves throughout the procedure. The patient was placed in Trendelenburg position. RIGHT chest region was prepped using chlorhexidine scrub and draped in sterile fashion using a full drape and sterile probe cover employed. The medial and lateral heads of the sternocleidomastoid muscle were identified as was the carotid pulse. The Internal Jugular vein was identified using the ultrasound. Anesthesia was achieved over the vein using 1% lidocaine. Using real-time out of plane guidance, the introducer needle was inserted into the Internal Jugular vein under direct ultrasound visualization. Venous blood was withdrawn. The syringe was removed and a guidewire was advanced into the introducer needle. The guidewire was visualized in the Internal Jugular Vein by ultrasound. A small incision was made at the skin surface with a scalpel and the introducer needle was exchanged for a dilator over the guidewire. After appropriate dilation was obtained, the dilator was exchanged over the wire for a 20 cm central venous catheter. The wire was removed and the catheter was sutured in place at 15 cm. A sterile sorbaview shield was placed over the catheter at the insertion site. The patient tolerated the procedure without any hemodynamic compromise. At time of procedure completion, all ports aspirated and flushed properly. Post-procedure chest x-ray is pending at this time. Estimated blood loss is <5 ml. VS, I&O, 24H, Fishbone Vital Signs/I&O Vital Signs Date Time Temp Pulse Resp B/P (MAP) Pulse Ox O2 Delivery O2 Flow Rate FiO2 05/16/20 07:00 65 99 05/16/20 06:45 66/32 (43) 05/16/20 04:30 18 05/16/20 02:16 Room Air 05/15/20 14:15 97.2 I&O- Last 24 Hours up to 6 AM 05/16/20 06:00 Intake Total 3150 ml Balance 3150 ml Laboratory Data 24H LABS Laboratory Tests 2 05/15/20 15:45: Immature Granulocyte % (Auto) 0.7, Neutrophils (%) (Auto) 74.1H, Lymphocytes (%) (Auto) 18.5L, Monocytes (%) (Auto) 6.2H, Eosinophils (%) (Auto) 0.0, Basophils (%) (Auto) 0.5, Neutrophils # (Auto) 6.2, Lymphocytes # (Auto) 1.6, Monocytes # (Auto) 0.5, Eosinophils # (Auto) 0.0, Basophils # (Auto) 0.0, Nucleated Red Blood Cells % (auto) 0.0, Blood Gas Bicarbonate Standard 8.2, Venous Blood pH 6.975L, Venous Blood Partial Pressure CO2 37.8L, Venous Blood Partial Pressure O2 44.8, Venous Blood Total Carbon Dioxide 9.8L, Venous Blood HCO3 8.6L, Venous Blood Oxygen Saturation 75.4, Venous Blood Base Excess -22.3L, Anion Gap 15, Glomerular Filtration Rate 2.9L, Lactic Acid Level 0.9, Calcium Level 8.7L, Total Bilirubin 0.4, Direct Bilirubin < 0.1, Aspartate Amino Transf (AST/SGOT) < 3L, Alanine Aminotransferase (ALT/SGPT) 9L, Alkaline Phosphatase 99, Ammonia 11, Total Creatine Kinase 41, Creatine Kinase MB 1.0, Creatine Kinase MB Relative Index 2.44, Troponin I < 0.02, Total Protein 8.0, Albumin 4.4, Albumin/Globulin Ratio 1.2, Thyroid Stimulating Hormone (TSH) 0.937, Salicylates Level < 1.7L, Acetaminophen Level < 2.0L, Ethyl Alcohol Level < 0.003, Coronavirus (COVID-19)(PCR) NEGATIVE, Influenza Type A (RT-PCR) NEGATIVE, Influenza Type B (RT-PCR) NEGATIVE, Respiratory Syncytial Virus (PCR) NEGATIVE 05/15/20 21:25: Immature Granulocyte % (Auto) 0.5, Neutrophils (%) (Auto) 57.0, Lymphocytes (%) (Auto) 31.1, Monocytes (%) (Auto) 11.0H, Eosinophils (%) (Auto) 0.0, Basophils (%) (Auto) 0.4, Neutrophils # (Auto) 4.3, Lymphocytes # (Auto) 2.4, Monocytes # (Auto) 0.8, Eosinophils # (Auto) 0.0, Basophils # (Auto) 0.0, Nucleated Red Blood Cells % (auto) 0.0, Anion Gap 16, Glomerular Filtration Rate 2.9L, Calcium Level 8.8 05/16/20 00:00: Bedside Glucose (Misc Panel) 93 05/16/20 02:59: Anion Gap 13, Glomerular Filtration Rate 3.6L, Calcium Level 7.4#L 05/16/20 06:08: Blood Gas Bicarbonate Standard 9.8L, Arterial Blood pH 7.151*L, Arterial Blood Partial Pressure CO2 24.1L, Arterial Blood Partial Pressure O2 119.0H, Arterial Blood Total CO2 9.0L, Arterial Blood HCO3 8.2L, Arterial Blood Base Excess - 18.9L, Arterial Blood Oxygen Saturation 97.4 CBC/BMP Laboratory Tests 05/15/20 15:45 05/15/20 21:25 05/16/20 02:59 HALIE WEINER MD May 16, 2020 09:59
--- NOTE | 2020-05-16 10:08 | IPNPDOC ---
Date Seen The patient was seen on 05/16/20. Progress Note SUBJECTIVE: Patient hypotensive overnight, unresponsive to multiple fluid boluses, central line placed in the morning and pressors were started. Patient has remained asymptomatic overnight, denies any symptoms at this time, ostomy was drained at least once or twice overnight. Patient denies any shortness of breath, cough, nausea, vomiting at this time, having good urine output, Renee in place. PHYSICAL EXAMINATION: VITAL SIGNS: Please see below. GENERAL: No distress HEENT: Normocephalic, atraumatic, moist mucous membranes NECK: Supple CARDIOVASCULAR EXAMINATION: S1, S2, no murmurs RESPIRATORY EXAMINATION: Diminished in the bases ABDOMINAL EXAMINATION: Soft, nontender, nondistended, ostomy present, positive bowel sounds EXTREMITIES: Range of motion intact, no edema SKIN: Dry NEUROLOGICAL EXAMINATION: Alert and oriented 3, no focal deficits PSYCHIATRIC EXAMINATION: Calm and cooperative LABORATORY DATA, IMAGING STUDIES, MICROBIOLOGY: Please see below. ASSESSMENT AND PLAN: 74-year-old female with past medical history of ulcerative colitis status post colectomy with high output ostomy is admitted for acute renal failure. PROBLEMS: 1. Acute renal failure Likely prerenal due to high ostomy output with decreased by mouth intake over the past few days. Hyperkalemia, secondary to acute renal failure, metabolic acidosis and TIFFANY inhibitor use, now resolved. Metabolic acidosis secondary to acute renal failure and high ostomy output, improving with bicarbonate drip. Hyponatremia, hypovolemic, improving with hydration. Nephrology following 2. Hypotension. Etiology unclear, as she was not this hypotensive at presentation, no obvious signs of infection. Central line placed, start phenylephrine. Holding home BP meds Obtain cultures and pro-calcitonin, we'll hold off on antibiotics at this time as patient appears well clinically and hypotension may be related to volume depletion. 3. Atrial fibrillation. Continue reduced dose Eliquis until renal function improves DVT prophylaxis: On Eliquid GI prophylaxis: On Protonix VS, I&O, 24H, Fishbone Vital Signs/I&O Vital Signs Date Time Temp Pulse Resp B/P (MAP) Pulse Ox O2 Delivery O2 Flow Rate FiO2 05/16/20 07:00 65 99 05/16/20 06:45 66/32 (43) 05/16/20 04:30 18 05/16/20 02:16 Room Air 05/15/20 14:15 97.2 I&O- Last 24 Hours up to 6 AM 05/16/20 06:00 Intake Total 3150 ml Balance 3150 ml Laboratory Data 24H LABS Laboratory Tests 2 05/15/20 15:45: Immature Granulocyte % (Auto) 0.7, Neutrophils (%) (Auto) 74.1H, Lymphocytes (%) (Auto) 18.5L, Monocytes (%) (Auto) 6.2H, Eosinophils (%) (Auto) 0.0, Basophils (%) (Auto) 0.5, Neutrophils # (Auto) 6.2, Lymphocytes # (Auto) 1.6, Monocytes # (Auto) 0.5, Eosinophils # (Auto) 0.0, Basophils # (Auto) 0.0, Nucleated Red Blood Cells % (auto) 0.0, Blood Gas Bicarbonate Standard 8.2, Venous Blood pH 6.975L, Venous Blood Partial Pressure CO2 37.8L, Venous Blood Partial Pressure O2 44.8, Venous Blood Total Carbon Dioxide 9.8L, Venous Blood HCO3 8.6L, Venous Blood Oxygen Saturation 75.4, Venous Blood Base Excess -22.3L, Anion Gap 15, Glomerular Filtration Rate 2.9L, Lactic Acid Level 0.9, Calcium Level 8.7L, Total Bilirubin 0.4, Direct Bilirubin < 0.1, Aspartate Amino Transf (AST/SGOT) < 3L, Alanine Aminotransferase (ALT/SGPT) 9L, Alkaline Phosphatase 99, Ammonia 11, Total Creatine Kinase 41, Creatine Kinase MB 1.0, Creatine Kinase MB Relative Index 2.44, Troponin I < 0.02, Total Protein 8.0, Albumin 4.4, Albumin/Globulin Ratio 1.2, Thyroid Stimulating Hormone (TSH) 0.937, Salicylates Level < 1.7L, Acetaminophen Level < 2.0L, Ethyl Alcohol Level < 0.003, Coronavirus (COVID- 19)(PCR) NEGATIVE, Influenza Type A (RT-PCR) NEGATIVE, Influenza Type B (RT-PCR) NEGATIVE, Respiratory Syncytial Virus (PCR) NEGATIVE 05/15/20 21:25: Immature Granulocyte % (Auto) 0.5, Neutrophils (%) (Auto) 57.0, Lymphocytes (%) (Auto) 31.1, Monocytes (%) (Auto) 11.0H, Eosinophils (%) (Auto) 0.0, Basophils (%) (Auto) 0.4, Neutrophils # (Auto) 4.3, Lymphocytes # (Auto) 2.4, Monocytes # (Auto) 0.8, Eosinophils # (Auto) 0.0, Basophils # (Auto) 0.0, Nucleated Red Blood Cells % (auto) 0.0, Anion Gap 16, Glomerular Filtration Rate 2.9L, Calcium Level 8.8 05/16/20 00:00: Bedside Glucose (Misc Panel) 93 05/16/20 02:59: Anion Gap 13, Glomerular Filtration Rate 3.6L, Calcium Level 7.4#L 05/16/20 06:08: Blood Gas Bicarbonate Standard 9.8L, Arterial Blood pH 7.151*L, Arterial Blood Partial Pressure CO2 24.1L, Arterial Blood Partial Pressure O2 119.0H, Arterial Blood Total CO2 9.0L, Arterial Blood HCO3 8.2L, Arterial Blood Base Excess - 18.9L, Arterial Blood Oxygen Saturation 97.4 CBC/BMP Laboratory Tests 05/15/20 15:45 05/15/20 21:25 05/16/20 02:59 HALIE WEINER MD May 16, 2020 10:08
[2020-05-16 10:28] LABS: MEAN CORPUSCULAR HEMOGLOBIN 29.3 pg (27.0-33.0); MEAN CORPUSCULAR HGB CONC 31.7 g/dl (32.0-36.5); MEAN CORPUSCULAR VOLUME 92.7 fl (80.0-96.0); PLATELET COUNT, AUTOMATED 172 10^3/uL (150-450); RED BLOOD COUNT 2.59 10^6/uL (4.00-5.40); WHITE BLOOD COUNT 6.5 10^3/uL (4.0-10.0)
[2020-05-16 10:37] LABS: HEMOGLOBIN 7.6 g/dl (12.0-15.5)
[2020-05-16 11:22] LABS: ALBUMIN 2.8 GM/DL (3.2-5.2); ALT/SGPT < 6 U/L (12-78); BILIRUBIN,TOTAL 0.4 MG/DL (0.2-1.0); BLOOD UREA NITROGEN 100 MG/DL (7-18); CALCIUM LEVEL 6.6 MG/DL (8.8-10.2); CARBON DIOXIDE LEVEL 18 MEQ/L (21-32); CHLORIDE LEVEL 114 MEQ/L (98-107); CREATININE FOR GFR 7.63 MG/DL (0.55-1.30); GLOMERULAR FILTRATION RATE 5.6 (>39); GLUCOSE, FASTING 90 MG/DL (70-100); MAGNESIUM LEVEL 2.2 MG/DL (1.8-2.4); PHOSPHORUS LEVEL 7.7 MG/DL (2.5-4.9); POTASSIUM SERUM 4.6 MEQ/L (3.5-5.1); SODIUM LEVEL 142 MEQ/L (136-145)
[2020-05-16] MEDS: SODIUM BICARBONATE 100 MEQ in D5W 1,000 ML IV SCH ×2 (13:34→22:03)
[2020-05-16 17:14] LABS: CALCIUM LEVEL 6.6 MG/DL (8.8-10.2); CREATININE FOR GFR 6.12 MG/DL (0.55-1.30); GLOMERULAR FILTRATION RATE 7.2 (>39); POTASSIUM SERUM 4.1 MEQ/L (3.5-5.1)
[2020-05-16 17:19] LABS: HEMATOCRIT 23.3 % (36.0-47.0); HEMOGLOBIN 7.4 g/dl (12.0-15.5); MEAN CORPUSCULAR HEMOGLOBIN 28.7 pg (27.0-33.0); MEAN CORPUSCULAR HGB CONC 31.8 g/dl (32.0-36.5); MEAN CORPUSCULAR VOLUME 90.3 fl (80.0-96.0); PLATELET COUNT, AUTOMATED 186 10^3/uL (150-450); RED BLOOD COUNT 2.58 10^6/uL (4.00-5.40); WHITE BLOOD COUNT 6.2 10^3/uL (4.0-10.0)
[2020-05-16] MEDS ORDERED: CALCIUM GLUCONATE 1,000 MG in D5W MINI-BAG PLUS 100 ML IV ONE (19:00)
[2020-05-16] MEDS ORDERED: HYDROCORTISONE 100 MG/2 ML VIAL (J1720 PER 1) IV ONE (19:00)
[2020-05-16] MEDS: ATORVASTATIN 10 MG TAB PO SCH (20:58)
[2020-05-17] VITALS (25 sets, daily range): BP systolic 85–131; BP diastolic 45–60
--- NOTE | 2020-05-17 00:33 | IPN ---
NEPHROLOGY PROGRESS NOTE DATE: 05/16/2020 SUBJECTIVE: Patient was seen and examined at the bedside today morning in the Emergency Room. She is still awaiting a bed in the ICU. Last 24 hour events are noted. Patient became hypotensive overnight. She needed I.V. fluid boluses. She also got a central line placed in the right IJ, and she was started on Phenylephrine I.V. infusion. She still has a good urine output, and she continues to be on bicarb containing fluid and renal function is slowly improving. Patient is very paranoid at this time, and she wanted to leave the room as soon as possible, and I tried to reorient the patient. OBJECTIVE: VITAL SIGNS: Temperature 98.3 degrees Fahrenheit, blood pressure 112/53 now, pulse 68, respiratory rate 21, saturating 97% on room air. INTAKE AND OUTPUT: Urine output recorded since overnight as 1.1 liter. Weight in the bed scale is 64.4 kg. PHYSICAL EXAMINATION: GENERAL: Patient is awake, alert and oriented x1 only, lying in bed. HEAD/NECK: Extraocular muscles intact. Pupils equally round and reactive to light. Mucous membranes are moist. Neck is supple. She has a right IJ triple lumen catheter. CARDIOVASCULAR: S1, S2, regular rate. No edema of the bilateral lower extremities. RESPIRATORY: Chest is clear to auscultation bilaterally. Bilateral equal air entry. No rales or rhonchi. ABDOMEN: Soft, old surgical scar. Right lower quadrant ileostomy was noted. MUSCULOSKELETAL: No clubbing or cyanosis. Pulses are 2+. PROFESSOR OF CHEMISTRY: Patient is oriented to herself. She is slightly paranoid and agitated. Otherwise she follows commands and moves all extremities. LABORATORY REVIEW: CBC showed WBC 6.2, hemoglobin 7.4, platelets 186,000. ABG done today morning showed pH 7.15, pCO2 24, pO2 119, bicarb 8.2, O2 sat 97.4%. BMP done today morning showed sodium 142, potassium 4.6, chloride 114, bicarb 18, BUN 100, creatinine 7.6, calcium 6.6, phosphorus 7.7, albumin 2.8. Pro-Calcitonin is less than 0.05. MICROBIOLOGY: Cultures are negative so far. IMAGING STUDIES: A chest x-ray was done after placement of the right-sided IJ line, which showed tip in the SVC, diffusely increased interstitial markings are raising the possibility of interstitial infiltrate. CURRENT INPATIENT MEDICATIONS: Patient's medications were all reviewed by myself. She is currently on Phenylephrine infusion. She was getting sodium bicarbonate 150 mEq and D5W. I have changed the fluid to D5W with 100 mEq of bicarb at 125 cc an hour. I also gave her a dose of hydrocortisone 100 mg I.V. times one dose. No other significant change in the medications today as compared with yesterday. ASSESSMENT AND PLAN: 1. Acute renal failure: It is secondary to hypovolemia. She was given I.V. fluid boluses. Continue bicarb containing fluid. Renal function is slowly improving. No urgent need of hemodialysis at this time. 2. Hyperkalemia: Potassium level is improving with improvement in the urine output and acidosis. Potassium is 4.6 on today's labs. 3. High anion gap metabolic acidosis: It is secondary to high ostomy output and acute renal failure. As mentioned above, patient is getting bicarb containing fluid, but I have decreased the amount of bicarb because patient is getting hyponatremic now with hyposmolality. 4. Hyponatremia: Which has corrected from 127 to 142 today morning, which is a slight rapid correction, that is why I have changed the I.V. fluids to D5W with 100 mEq of bicarb. If renal function improves further, then rate of I.V. fluids will be decreased. 5. Hypocalcemia: Patient will be given I.V. calcium gluconate 1 gram. 6. Anemia: Hemoglobin has dropped to 7.4. She will be given 1 unit of PRBC transfusion. 7. Hypotension: Patient is requiring Phenylephrine at this time. Cultures are all pending at this time. Pro-Calcitonin is negative. I am empirically starting the patient on hydrocortisone and a.m. Cortisol has been ordered. Total critical care time spent in the management of this patient today morning in the Emergency Room excluding all the procedures was 40 minutes.
[2020-05-17 05:17] LABS: HEMATOCRIT 24.6 % (36.0-47.0); HEMOGLOBIN 8.2 g/dl (12.0-15.5); MEAN CORPUSCULAR HEMOGLOBIN 29.6 pg (27.0-33.0); MEAN CORPUSCULAR HGB CONC 33.3 g/dl (32.0-36.5); MEAN CORPUSCULAR VOLUME 88.8 fl (80.0-96.0); PLATELET COUNT, AUTOMATED 141 10^3/uL (150-450); RED BLOOD COUNT 2.77 10^6/uL (4.00-5.40); WHITE BLOOD COUNT 4.2 10^3/uL (4.0-10.0)
[2020-05-17 05:29] LABS: APPEARANCE, URINE CLEAR (CLEAR); BACTERIA, URINE AUTO 1+ (NEGATIVE); BILIRUBIN, URINE AUTO NEGATIVE (NEGATIVE); BLOOD, URINE BLOOD NEGATIVE (NEGATIVE); COLOR, URINE STRAW (YELLOW); GLUCOSE, URINE (UA) AUTO NEGATIVE (NEGATIVE); KETONE, URINE AUTO NEGATIVE (NEGATIVE); LEUKOCYTE ESTERASE, URINE AUTO NEGATIVE (NEGATIVE); MUCUS, URINE SMALL (NEGATIVE); NITRITE, URINE AUTO NEGATIVE (NEGATIVE); PROTEIN, URINE AUTO NEGATIVE (NEGATIVE); RBC, URINE AUTO 2 /HPF (0-3); SQUAMOUS EPITHELIAL CELL UR AU 0 /HPF (0-6); UROBILINOGEN, URINE AUTO 0.2 mg/dL (0.0-2.0); WBC, URINE AUTO 1 /HPF (0-3)
[2020-05-17 05:47] LABS: PERCENT SATURATION 71.4 % (13.2-45.0)
[2020-05-17 05:51] LABS: ALBUMIN 2.6 GM/DL (3.2-5.2); BILIRUBIN,TOTAL 0.8 MG/DL (0.2-1.0); CALCIUM LEVEL 7.5 MG/DL (8.8-10.2); CREATININE FOR GFR 3.38 MG/DL (0.55-1.30); GLOMERULAR FILTRATION RATE 14.2 (>39); MAGNESIUM LEVEL 1.9 MG/DL (1.8-2.4); PHOSPHORUS LEVEL 6.7 MG/DL (2.5-4.9); POTASSIUM SERUM 4.1 MEQ/L (3.5-5.1)
[2020-05-17] MEDS: SODIUM BICARBONATE 100 MEQ in D5W 1,000 ML IV SCH (06:43)
[2020-05-17] MEDS: ESCITALOPRAM OXALATE 5MG TABLET (LEXAPRO) PO SCH (09:10)
[2020-05-17] MEDS: NS 0.45% 1,000 ML IV SCH ×2 (09:10→18:57)
[2020-05-17] MEDS: PANTOPRAZOLE 40MG VIAL (C9113 PER 1) IV SCH (09:10)
[2020-05-17] MEDS: APIXABAN 2.5 MG TAB (ELIQUIS) PO SCH ×2 (09:10→20:05)
--- NOTE | 2020-05-17 11:13 | IPN ---
PROGRESS NOTE DATE: 05/17/2020 SUBJECTIVE: Lakisha feels well. Her output through the ostomy is decreased. She has had no arrhythmias. Blood pressure has been well-controlled. She is off her pressors, the staff thinks she can transfer up to the floor. No chest pain or shortness of breath. PHYSICAL EXAMINATION: VITAL SIGNS: Blood pressure 112/53, afebrile. Vital signs are stable. Heart rate is around 50 when she is sleeping. Sinus bradycardia on telemetry. GENERAL APPEARANCE: Alert and conversant, in no distress. LUNGS: Clear. HEART: Regular rhythm. ABDOMEN: Soft, NONTENDER. No peripheral edema. LABORATORY DATA: White count 4.2, hemoglobin is 8.2, platelets are 141,000. Sodium is 140, potassium is 4.1, BUN is 79, creatinine 3.3. Iron studies were consistent with chronic inflammation/chronic kidney disease, elevated iron levels in general. IMPRESSION: 1. Acute renal failure secondary to hypovolemia. Fluids have been managed by Nephrology. Renal function is improved. 2. Hyperkalemia, this resolved with appropriate fluid management. 3. Hyponatremia, this is improved and sodium has remained stable. 4. Hypotension, this has resolved. Patient is off pressors. 5. Atrial fibrillation, rate is controlled, is a little bradycardic at times but not symptomatic. She is on Eliquis, her dose has been reduced due to renal impairment. If renal function returns to baseline, the dose will have to be increased appropriately.
[2020-05-17] MEDS ORDERED: ACETAMINOPHEN TAB 650MG DOSE (2X325MG) PO PRN (18:30)
[2020-05-17] MEDS: ATORVASTATIN 10 MG TAB PO SCH (20:05)
[2020-05-17] MEDS ORDERED: DARBEPOETIN 100 MCG/0.5 ML *NON-DIALYSIS* SYRINGE (J0881) SC ONE (21:15)
--- NOTE | 2020-05-17 22:02 | IPN ---
NEPHROLOGY PROGRESS NOTE DATE: 05/17/2020 SUBJECTIVE: Patient was seen and examined at the bedside today morning in the ICU. Patient is feeling much better today. Her Phenylephrine has been weaned off now. She continues to be on I.V. fluid hydration. Renal function is slowly improving. She was given a dose of I.V. Hydrocortisone yesterday. Acidosis and hyperkalemia is also getting better. OBJECTIVE: VITAL SIGNS: Temperature 96.5 degrees Fahrenheit, blood pressure 120/60, pulse 52, respiratory rate 16, saturating 94% on room air. INTAKE AND OUTPUT: Urine output recorded as 1.6 liter yesterday, and 865 mL so far today since overnight. Weight in the bed scale is stable at 64.2 kg. PHYSICAL EXAMINATION: GENERAL: Patient is awake, alert and oriented x3, lying in bed, in no apparent distress. HEAD/NECK: Extraocular muscles intact. Pupils equally round and reactive to light. Mucous membranes are moist. Neck is supple. She has a right IJ triple lumen catheter. CARDIOVASCULAR: S1, S2, regular rate. No edema of the bilateral lower extremities. RESPIRATORY: Chest is clear to auscultation bilaterally. Bilateral equal air entry. No rales or rhonchi. ABDOMEN: Soft, old surgical scar. Right lower quadrant ileostomy with liquid stools. MUSCULOSKELETAL: No clubbing or cyanosis. Pulses are 2+. PICTURES EDITOR: No focal deficit. Power is 5/5 in all extremities. LABORATORY REVIEW: CBC showed WBC 4.2, hemoglobin 8.2, platelets 141,000. BMP showed sodium 140, potassium 4.1, chloride 107, bicarb 27, BUN 79, creatinine 3.3; it was 6.1 yesterday. Calcium 7.5, phosphorus 6.7, magnesium 1.9, iron 195, TIBC 259, transferrin saturation 71.4, ferritin 130. MICROBIOLOGY: Blood cultures are negative so far. CURRENT INPATIENT MEDICATIONS: Patient's medications were all reviewed by myself. She was given a dose of Hydrocortisone 100 mg I.V. times one dose. She was getting I.V. bicarb containing fluid. I have changed her fluid to half normal saline at 75 cc an hour. Phenylephrine has been stopped. No other change in the medications today as compared with yesterday. ASSESSMENT AND PLAN: 1. Acute renal failure: Patient is nonoliguric. She is responding to I.V. fluids. I.V. fluids have been changed to half normal saline now. Continue to monitor intake and output. 2. Metabolic acidosis: It has resolved now. Patient does not need any more I.V. bicarb. I.V. fluids have been changed to half normal saline only. 3. Anemia: Patient is status post one unit of PRBC transfusion, iron levels were checked, and they are within the acceptable range. Patient will be given a dose of Aranesp. 4. Hypotension: It has resolved now. Patient is off of Phenylephrine, cultures are all negative. She was given a dose of Hydrocortisone yesterday; a.m. Cortisol level is within the acceptable range. 5. Atrial fibrillation: She is on Eliquis, currently not requiring any heart rate controlling medications.
[2020-05-18 06:00] VITALS: BP 118/59
[2020-05-18 06:26] LABS: HEMATOCRIT 27.1 % (36.0-47.0); HEMOGLOBIN 8.6 g/dl (12.0-15.5); MEAN CORPUSCULAR HEMOGLOBIN 29.2 pg (27.0-33.0); MEAN CORPUSCULAR HGB CONC 31.7 g/dl (32.0-36.5); MEAN CORPUSCULAR VOLUME 91.9 fl (80.0-96.0); PLATELET COUNT, AUTOMATED 163 10^3/uL (150-450); RED BLOOD COUNT 2.95 10^6/uL (4.00-5.40); WHITE BLOOD COUNT 5.6 10^3/uL (4.0-10.0)
[2020-05-18 06:57] LABS: CALCIUM LEVEL 7.7 MG/DL (8.8-10.2); CREATININE FOR GFR 1.54 MG/DL (0.55-1.30); GLOMERULAR FILTRATION RATE 35.3 (>39); POTASSIUM SERUM 4.1 MEQ/L (3.5-5.1)
[2020-05-18] MEDS ORDERED: SODIUM CHLORIDE 0.9% INJ 10 ML SYR IV PRN (08:30)
[2020-05-18] MEDS: APIXABAN 2.5 MG TAB (ELIQUIS) PO SCH ×2 (08:34→21:42)
[2020-05-18] MEDS: NS 0.45% 1,000 ML IV SCH (08:34)
[2020-05-18] MEDS: ESCITALOPRAM OXALATE 5MG TABLET (LEXAPRO) PO SCH (08:34)
[2020-05-18] MEDS: PANTOPRAZOLE 40MG VIAL (C9113 PER 1) IV SCH (08:34)
[2020-05-18 14:00] VITALS: BP 124/62
[2020-05-18] MEDS: SODIUM CHLORIDE 0.9% INJ 10 ML SYR IV SCH ×2 (14:17→21:42)
--- NOTE | 2020-05-18 21:26 | IPN ---
NEPHROLOGY PROGRESS NOTE DATE: 05/18/2020 SUBJECTIVE: The patient was seen and examined at the bedside today morning. She is currently on IV fluid hydration. Renal function continues to improve. She is feeling much better. Urine output is also improving. Electrolytes are within the acceptable range and she is on the Medical/Surgical Floor today. OBJECTIVE: VITAL SIGNS: Temperature is 98.6 degrees Fahrenheit, blood pressure 118/59, pulse is 70, respiratory rate of 17, saturating 96% on room air. INTAKE AND OUTPUT: Urine output recorded as 1,165 mL yesterday, 550 mL so far today since overnight. Weight in the bed scale is not available. PHYSICAL EXAMINATION: GENERAL APPEARANCE: The patient is awake, alert, oriented x3, laying in bed in no apparent distress. HEAD AND NECK: Extraocular muscles intact. Pupils are equally round and reactive to light. Neck is supple. She has a right IJ triple lumen catheter. CARDIOVASCULAR: S1, S2, regular rate. EXTREMITIES: No edema of the bilateral lower extremities. RESPIRATORY: Chest is clear to auscultation bilaterally. Bilaterally currently no rales or rhonchi. ABDOMEN: Soft, positive bowel sounds. Right lower quadrant ileostomy was noted. MUSCULOSKELETAL: No clubbing, no cyanosis. Pulses are 2+. MEDTRONICS TECHNICIAN: No focal deficits. Power is 5/5 in all extremities. LAB REVIEW: CBC showed a WBC of 5.6, hemoglobin 8.6, platelet count 163. BMP showed sodium of 143, potassium 4.1, chloride 109, bicarbonate 29, BUN 55, creatinine is 1.5; it was 3.3 yesterday. CURRENT INPATIENT MEDICATIONS: The patient's medications were all reviewed by myself. She is currently getting half normal saline at 75 mL an hour. I would stop the IV fluids tonight. She was given a dose of Aranesp 100 mcg yesterday. No other significant change in her medications. ASSESSMENT AND PLAN: 1. Acute renal failure it was secondary to dehydration and volume depletion. She was aggressively hydrated. Renal function is improving. Creatinine is down to 1.5 which is close to her baseline creatinine of around 1.1. IV fluids will be stopped tonight. Continue to encourage oral hydration. 2. Anemia the patient is status post PRBC transfusion. Iron levels are adequate. She was given a dose of Aranesp yesterday. Hemoglobin level is improving. 3. Atrial fibrillation anticoagulation is with Eliquis. Heart rate is controlled. She is not requiring any medications for control of heart rate. 4. History of hypertension - The patient has soft blood pressures at this time and she is not requiring any antihypertensives. Continue to monitor for now.
[2020-05-18] MEDS: ATORVASTATIN 10 MG TAB PO SCH (21:42)
[2020-05-18 22:00] VITALS: BP 124/70
--- NOTE | 2020-05-18 23:58 | IPNPDOC ---
Text Note Date of Service The patient was seen on 05/18/20. NOTE SUBJECTIVE: Does not have complaints today. Overall feeling much better, output in the ileostomy has reduced. Good urine output. PHYSICAL EXAMINATION: VITAL SIGNS: Please see below. GENERAL: No distress HEENT: Normocephalic, atraumatic, moist mucous membranes NECK: Supple CARDIOVASCULAR EXAMINATION: S1, S2, no murmurs RESPIRATORY EXAMINATION: Diminished in the bases ABDOMINAL EXAMINATION: Soft, nontender, nondistended, ostomy present, positive bowel sounds EXTREMITIES: Range of motion intact, no edema NEUROLOGICAL EXAMINATION: Alert and oriented 3, no focal deficits PSYCHIATRIC EXAMINATION: Calm and cooperative LABORATORY DATA, IMAGING STUDIES, MICROBIOLOGY: Please see below. ASSESSMENT AND PLAN: 74-year-old female with past medical history of ulcerative colitis status post colectomy with ileostomy with high output is admitted for acute renal failure. Acute renal failure with hyperkalemia and metabolic acidosis. prerenal due to high ostomy output with decreased by mouth intake over the past few days on the back ground of ACEI. improving IVF stopped. Hyperkalemia, secondary to acute renal failure, metabolic acidosis and TIFFANY inhibitor use, now resolved. Metabolic acidosis secondary to acute renal failure and high ostomy output, improving with bicarbonate drip. Hyponatremia, hypovolemic, improved with hydration. Hypotension. probably due to volume depletion now resolved. Atrial fibrillation. continue eliquis rate controlled without any meds. DVT prophylaxis: On Eliquis Other medical problems; Recurrent AKIs Recurrent UTIs and Pyelonephritis Ulcerative colitis/p colectomy with high out ileostomy Hyperlipidemia. Hypertension. Chronic kidney disease, stage III. Ileostomy in the past. History of kidney stones with right-sided lithotripsy and stenting 2017 Reflux disease. Depression. VS,Fishbone, I+O VS, Fishbone, I+O Laboratory Tests 05/18/20 06:03 Vital Signs Date Time Temp Pulse Resp B/P (MAP) Pulse Ox O2 Delivery O2 Flow Rate FiO2 05/18/20 14:00 97.4 61 18 124/62 (82) 100 Room Air 05/17/20 07:30 1.0 I&O- Last 24 Hours up to 6 AM 05/18/20 07:00 Intake Total 2448 ml Output Total 1790 ml Balance 658 ml JACK RAMIREZ MD May 18, 2020 23:58
[2020-05-19] MEDS: SODIUM CHLORIDE 0.9% INJ 10 ML SYR IV SCH ×2 (05:24→14:00)
[2020-05-19 06:00] VITALS: BP 133/63
[2020-05-19 06:08] LABS: HEMATOCRIT 27.5 % (36.0-47.0); HEMOGLOBIN 8.5 g/dl (12.0-15.5); MEAN CORPUSCULAR HGB CONC 30.9 g/dl (32.0-36.5); MEAN CORPUSCULAR VOLUME 93.9 fl (80.0-96.0); PLATELET COUNT, AUTOMATED 146 10^3/uL (150-450); RED BLOOD COUNT 2.93 10^6/uL (4.00-5.40); WHITE BLOOD COUNT 6.8 10^3/uL (4.0-10.0)
[2020-05-19 06:40] LABS: CALCIUM LEVEL 8.3 MG/DL (8.8-10.2); CREATININE FOR GFR 1.26 MG/DL (0.55-1.30); GLOMERULAR FILTRATION RATE 44.4 (>39); POTASSIUM SERUM 4.3 MEQ/L (3.5-5.1)
[2020-05-19] MEDS: PANTOPRAZOLE 40MG VIAL (C9113 PER 1) IV SCH (09:27)
[2020-05-19] MEDS: ESCITALOPRAM OXALATE 5MG TABLET (LEXAPRO) PO SCH (09:28)
[2020-05-19] MEDS: APIXABAN 2.5 MG TAB (ELIQUIS) PO SCH (09:28)
[2020-05-19] MEDS ORDERED: METAMUCIL (PSYLLIUM) PACKET PO SCH (09:30)
[2020-05-19] MEDS ORDERED: ACET1TAB55 PO (12:05)
[2020-05-19] MEDS ORDERED: META1POW PO (12:05)
--- NOTE | 2020-05-19 16:26 | DS.PDOC ---
Discharge Summary General Date of Admission May 15, 2020 at 17:28 Date of Discharge 05/19/20 Discharge Summary PROCEDURES PERFORMED DURING STAY: [None]. DISCHARGE DIAGNOSES: DINA with hyperkalemia and metabolic acidosis due to increased out put in the ileostomy on the back ground of ACEI and Diuretic Hyponatremia Hypovolemic hypotension SECONDARY DIAGNOSIS: Chronic A fib Recurrent AKIs Recurrent UTIs and Pyelonephritis Ulcerative colitis/p colectomy with high out ileostomy Hyperlipidemia. Hypertension. Chronic kidney disease, stage III. History of kidney stones with right-sided lithotripsy and stenting 2017 Reflux disease. Depression. COMPLICATIONS/CHIEF COMPLAINT: Acute Renal Fauilure Hyperkalemia Metabolic Acidos. HOSPITAL COURSE: ASSESSMENT AND PLAN: 74-year-old female with past medical history of ulcerative colitis status post colectomy with ileostomy with high output was admitted for acute renal failure. She has history of reccurent AKIs from frequent dehydrations from ileostomy output which she cannot keep up with by oral intake. Acute renal failure with hyperkalemia and metabolic acidosis. prerenal due to high ostomy output with decreased by mouth intake over the past few days on the back ground of ACEI. improved Patient should never be restarted again on ACEI or ARBs or diuretics with her h/o recurrent episodes of dehydration and DINA Hyperkalemia, secondary to acute renal failure, metabolic acidosis and TIFFANY inhibitor use, now resolved. Metabolic acidosis secondary to acute renal failure and high ostomy output, improving with bicarbonate drip. Hyponatremia, hypovolemic, improved with hydration. Hypertension Had hypotension on admission due to volume depletion now resolved. Lisinopril discontinued. continue amlodipine Atrial fibrillation. continue eliquis rate controlled without any meds. DISCHARGE MEDICATIONS: Please see below. ALLERGIES: Please see below. PHYSICAL EXAMINATION ON DISCHARGE: VITAL SIGNS: Please see below. GENERAL: No distress HEENT: Normocephalic, atraumatic, moist mucous membranes NECK: Supple CARDIOVASCULAR EXAMINATION: S1, S2, no murmurs RESPIRATORY EXAMINATION: Diminished in the bases ABDOMINAL EXAMINATION: Soft, nontender, nondistended, ostomy present, positive bowel sounds EXTREMITIES: Range of motion intact, no edema NEUROLOGICAL EXAMINATION: Alert and oriented 3, no focal deficits PSYCHIATRIC EXAMINATION: Calm and cooperative LABORATORY DATA, IMAGING STUDIES, MICROBIOLOGY: Please see below. LABORATORY DATA: Please see below. ACTIVITY: [As tolerated]. DIET: Regular DISPOSITION: Home, Self-Care. DISCHARGE INSTRUCTIONS: Follow up Dr Dong in 1 week PMD in 2 weeks DISCHARGE CONDITION: [Stable]. TIME SPENT ON DISCHARGE: 35 minutes. Vital Signs/I&Os Vital Signs Date Time Temp Pulse Resp B/P (MAP) Pulse Ox O2 Delivery O2 Flow Rate FiO2 05/19/20 06:00 98.2 67 18 133/63 (86) 98 Room Air 05/17/20 07:30 1.0 I&O- Last 24 Hours up to 6 AM 05/19/20 07:00 Intake Total 1350 ml Output Total 850 ml Balance 500 ml Laboratory Data Labs 24H Laboratory Tests 2 05/19/20 05:46: Nucleated Red Blood Cells % (auto) 0.0, Anion Gap 4L, Glomerular Filtration Rate 44.4, Calcium Level 8.3L CBC/BMP Laboratory Tests 05/19/20 05:46 Microbiology Microbiology 05/17/20 Urine Culture - Final, Complete 05/16/20 Blood Culture - Preliminary, Resulted No Growth after 72 hours. All specime... 05/16/20 Blood Culture - Preliminary, Resulted No Growth after 72 hours. All specime... Discharge Medications Scheduled Amlodipine Besylate (Amlodipine Besylate) 5 Mg Tablet, 2.5 MG PO DAILY, (Reported) Apixaban (Eliquis) 5 Mg Tablet, 5 MG PO BID, (Reported) Atorvastatin Calcium (Atorvastatin Calcium) 10 Mg Tablet, 10 MG PO QHS, (Reported) Escitalopram Oxalate (Lexapro) 5 Mg Tablet, 5 MG PO DAILY, (Reported) Pantoprazole Sodium (Pantoprazole Sodium) 40 Mg Tablet.dr, 40 MG PO BID, (Reported) Psyllium Husk/Aspartame (Metamucil Fiber Singles Packet) 3.4 Gm Powd.pack, 1 PKT PO BID Scheduled PRN Acetaminophen (Acetaminophen) 325 Mg Tablet, 650 MG PO Q6HP PRN for PAIN / FEVER Allergies Coded Allergies: No Known Allergies (Unverified , 01/11/20) JACK RAMIREZ MD May 19, 2020 16:26
--- NOTE | 2020-05-20 14:42 | IPN ---
NEPHROLOGY PROGRESS NOTE DATE: 05/19/2020 SUBJECTIVE: The patient was seen and examined at the bedside today morning. She is afebrile, hemodynamically stable. Her IV fluids were stopped yesterday. Her renal function continues to improve. Creatinine is improved to 1.2. She denies any active complaints. She was also started on Metamucil as a bulk forming for her ileostomy. OBJECTIVE: VITAL SIGNS: Temperature is 98.2 degrees Fahrenheit, blood pressure 133/63, pulse is 67, respiratory rate of 18, saturating 98% on room air. INTAKE AND OUTPUT: Urine output recorded as 950 mL yesterday, 1,450 mL so far today since overnight. Weight in the bed scale is not available. PHYSICAL EXAMINATION: GENERAL APPEARANCE: The patient is awake, alert, oriented x3, laying in bed in no apparent distress. HEAD AND NECK: Extraocular muscles intact. Pupils are equally round and reactive to light. Mucous membranes are moist. Neck is supple. There is no jugular venous distention. CARDIOVASCULAR: S1, S2, regular rate. EXTREMITIES: No edema of the bilateral lower extremities. RESPIRATORY: Chest is clear to auscultation bilaterally. Bilaterally currently no rales or rhonchi. ABDOMEN: Soft, positive bowel sounds. Right lower quadrant ileostomy was noted. MUSCULOSKELETAL: No clubbing, no cyanosis. Pulses are 2+. MAINTENANCE OF WAY SUPERVISOR: No focal deficits. Power is 5/5 in all extremities. LAB REVIEW: CBC showed a WBC of 6.8, hemoglobin 8.5, platelet count 146. BMP showed sodium of 143, potassium 4.3, chloride 111, bicarbonate 28, BUN 39, creatinine is 1.26. It was 1.5 yesterday. Microbiology: All the cultures are negative so far. CURRENT INPATIENT MEDICATIONS: The patient's medications were all reviewed by myself. Her IV fluids were stopped last night. She is currently not on any antihypertensives. I have started the patient on Metamucil one packet twice daily. No other significant change in the medications. ASSESSMENT AND PLAN: 1. Acute renal failure it was secondary to volume depletion, dehydration, use of diuretic and tucker inhibitor. Renal function is significantly better. The patient was advised to keep herself well hydrated at home and drink plenty of liquids. She will need to follow up with Nephrology within one week after discharge from the hospital. 2. Anemia and chronic kidney disease - The patient was given PRBC transfusion and she was also given Aranesp. The rest of the anemia management will be done as an outpatient. 3. Atrial fibrillation her Eliquis dose was reduced to 2.5 mg. If her renal function stays stable, dose will be increased to 5 mg p.o. twice daily as an outpatient. 4. History of hypertension the patient should not be discharged home on any antihypertensives. Blood pressures are within the acceptable range. If needed, she will be started on antihypertensives as an outpatient, but she should not receive any diuretics or tucker inhibitors. 5. Ileostomy status - The patient probably has a high output from the ileostomy. She was advised to drink plenty of liquids. I have started her on Metamucil one packet p.o. twice daily. 6. Disposition it is okay to discharge the patient from a Nephrology standpoint. She will need to follow up with Nephrology within one week after discharge from the hospital.
== END 2020-05-19 14:30 | disposition home or self-care (01) | DRG 683 ==
LOC: M ED 14:15 → M ED INP 17:28 → M PCU 05-16 12:38 → M ED INP 05-16 12:53 → M PCU 05-16 16:20 → M MSPAV 05-17 15:25
PROVIDERS: ADMIT Internal Medicine; ATTEND Internal Medicine Nephrology
PROC: 02HV33Z Insertion of Infusion Device into Superior Vena Cava, Percutaneous Approach (ICD-10-PCS; principal; 2020-05-16)
PROC: 30233N1 Transfusion of Nonautologous Red Blood Cells into Peripheral Vein, Percutaneous Approach (ICD-10-PCS; 2020-05-16)
DX: N17.9 Acute kidney failure, unspecified (principal); E87.2 Acidosis; E87.1 Hypo-osmolality and hyponatremia; I48.20 Chronic atrial fibrillation, unspecified; K94.19 Other complications of enterostomy; E78.5 Hyperlipidemia, unspecified; D63.1 Anemia in chronic kidney disease; N18.30 Chronic kidney disease, stage 3 unspecified; I12.9 Hypertensive chronic kidney disease with stage 1 through stage 4 chronic kidney disease, or unspecified chronic kidney disease; I95.9 Hypotension, unspecified; F32.9 Major depressive disorder, single episode, unspecified; Z87.442 Personal history of urinary calculi; Z90.49 Acquired absence of other specified parts of digestive tract; Z79.01 Long term (current) use of anticoagulants; Z79.899 Other long term (current) drug therapy; Z20.822 Contact with and (suspected) exposure to COVID-19

== ENCOUNTER → 2020-05-25 | Outpatient (REF) | payer MEDICARE ==
[~2020-05-25] MED LIST changes: +ACET1TAB55 PO; +ELIQ5TAB PO; +IBUP-1720 PO; +LEXA5TAB13 PO; +LISI10TA22 PO; -LISI10TA4 PO; +META1POW PO; +escitalopram OR
[2020-05-25 18:34] LABS: PERCENT SATURATION 5.1 % (13.2-45.0)
== END ==
LOC: M LAB REF 16:55
PROVIDERS: ATTEND Internal Medicine Nephrology
DX: D64.9 Anemia, unspecified (principal)

== ENCOUNTER 2020-06-08 13:12 | Outpatient (CLI) | payer MEDICARE ==
[~2020-06-08] VITALS: Ht 160 cm; Wt 59.8 kg
[~2020-06-08 13:12] MED LIST changes: +ALBUTEROL SULFATE 2.5 MG/0.5 ML INH NEB SOLN INH PRN; +EPINEPHrine INJ 1 MG/ML 1ML AMP IM PRN; -LISI10TA22 PO; +LISI10TA4 PO; +diphenhydrAMINE 50MG/ML VIAL (J1200) IV PRN; +methylPREDNISolone 125MG 2ML VIAL IV PRN
[2020-06-08] MEDS ORDERED: diphenhydrAMINE 50MG/ML VIAL (J1200) IV ONE (13:30)
[2020-06-08] MEDS ORDERED: FERRIC CARBOXYMALTOSE INJ 750 MG, VIAL MATE ADAPTER 1 EACH in NS 250 ML IV ONE (13:30)
[2020-06-08] MEDS ORDERED: NS 1,000 ML IV SCH (13:30)
[2020-06-08 13:40] VITALS: BP 141/65
[2020-06-08 15:10] VITALS: BP 137/94
== END 2020-06-08 15:10 | disposition home or self-care (01) ==
LOC: M INFU 13:12
PROVIDERS: ATTEND Internal Medicine Nephrology
DX: D50.9 Iron deficiency anemia, unspecified (principal)
CPT/HCPCS: 96365; J1439

== ENCOUNTER 2020-06-15 12:53 | Outpatient (CLI) | payer MEDICARE ==
[~2020-06-15] VITALS: Ht 160 cm; Wt 60.0 kg
[~2020-06-15 12:53] MED LIST changes: +LISI10TA22 PO; -LISI10TA4 PO
[2020-06-15] MEDS ORDERED: diphenhydrAMINE 50MG/ML VIAL (J1200) IV ONE (13:00)
[2020-06-15] MEDS ORDERED: FERRIC CARBOXYMALTOSE INJ 750 MG, VIAL MATE ADAPTER 1 EACH in NS 250 ML IV ONE (13:00)
[2020-06-15] MEDS ORDERED: NS 1,000 ML IV SCH (13:00)
[2020-06-15 13:09] VITALS: BP 147/67
[2020-06-15 14:45] VITALS: BP 179/81
== END 2020-06-15 14:45 | disposition home or self-care (01) ==
LOC: M INFU 12:53
PROVIDERS: ATTEND Internal Medicine Nephrology
DX: D50.9 Iron deficiency anemia, unspecified (principal)
CPT/HCPCS: 96365; 96375; J1200; J1439

== ENCOUNTER 2021-01-12 12:41 | Observation (INO) | payer MEDICARE ==
[~2021-01-12] VITALS: Ht 152.4 cm; Wt 67.2 kg
[~2021-01-12 12:41] MED LIST changes: -ALBUTEROL SULFATE 2.5 MG/0.5 ML INH NEB SOLN INH PRN; -EPINEPHrine INJ 1 MG/ML 1ML AMP IM PRN; +OMEP40CA4 PO; -OMEP40CA97 PO; -diphenhydrAMINE 50MG/ML VIAL (J1200) IV PRN; -methylPREDNISolone 125MG 2ML VIAL IV PRN
--- NOTE | 2021-01-12 13:20 | REP ---
INDICATION: NEURO. COMPARISON: 05/15/2020. TECHNIQUE: CT brain performed in the axial plane. Coronal reconstruction images are performed. FINDINGS: The ventricles are normal in size and position.. There is no midline shift or mass effect. Harp-white differentiation is well maintained. There is no acute intracranial hemorrhage or extra-axial fluid collection. Bone window examination is unremarkable. The visualized mastoid air cells and paranasal sinuses are clear. IMPRESSION: Negative noncontrast CT brain. <Electronically signed by Misael Harp > 01/12/21 1955
[2021-01-12 14:21] LABS: BASO # 0.1 10^3/uL (0.0-0.2); BASO % 0.9 % (0.0-1.0); EOS # 0.7 10^3/uL (0.0-0.5); EOS % 8.4 % (0.0-3.0); HEMATOCRIT 39.6 % (36.0-47.0); HEMOGLOBIN 12.6 g/dl (12.0-15.5); LYMPH # 2.7 10^3/uL (1.5-5.0); LYMPH % 30.9 % (24.0-44.0); MEAN CORPUSCULAR HEMOGLOBIN 29.7 pg (27.0-33.0); MEAN CORPUSCULAR HGB CONC 31.8 g/dl (32.0-36.5); MEAN CORPUSCULAR VOLUME 93.4 fl (80.0-96.0); MONO # 0.6 10^3/uL (0.0-0.8); MONO % 6.8 % (2.0-8.0); NEUTROPHILS # 4.7 10^3/uL (1.5-8.5); NEUTROPHILS % 52.5 % (36.0-66.0); PLATELET COUNT, AUTOMATED 258 10^3/uL (150-450); RED BLOOD COUNT 4.24 10^6/uL (4.00-5.40); WHITE BLOOD COUNT 8.9 10^3/uL (4.0-10.0)
[2021-01-12 14:53] LABS: BLOOD UREA NITROGEN 12 MG/DL (7-18); CALCIUM LEVEL 8.7 MG/DL (8.8-10.2); CARBON DIOXIDE LEVEL 27 MEQ/L (21-32); CHLORIDE LEVEL 111 MEQ/L (98-107); CK-MB VALUE MASS 1.5 NG/ML (<3.6); CPK CREATINE PHOSPHOKINASE 80 U/L (26-192); CREATININE FOR GFR 1.03 MG/DL (0.55-1.30); GLOMERULAR FILTRATION RATE 55.9 (>39); GLUCOSE, FASTING 115 MG/DL (70-100); MB/CK RELATIVE INDEX 1.88 (< OR =4); POTASSIUM SERUM 3.9 MEQ/L (3.5-5.1); SODIUM LEVEL 143 MEQ/L (136-145); THYROID STIMULATING HORMONE 0.836 uIU/ML (0.358-3.740); TROPONIN I < 0.02 NG/ML (< 0.10)
[2021-01-12 14:54] LABS: RSV AMPLIFICATION NEGATIVE (NEGATIVE)
--- NOTE | 2021-01-12 15:10 | REP ---
INDICATION: Syncope/near-syncope. COMPARISON: Comparison chest x-ray May 16, 2020. TECHNIQUE: Portable upright AP chest radiograph. FINDINGS: Lungs are symmetrically aerated and clear. Pleural angles are sharp. The heart is enlarged similar to the prior study. Pulmonary vasculature is cephalized. No pleural effusion or pulmonary edema is appreciated. No acute bony abnormality. Thoracic aorta is somewhat tortuous as before. IMPRESSION: Cardiomegaly. Vascular cephalization. No evidence of pleural effusion or pulmonary edema. <Electronically signed by Kenan Hyatt > 01/12/21 [id number]
--- NOTE | 2021-01-12 17:06 | HPEPDOC ---
[facility] Medical History & Physical Date of Admission Jan 12, 2021 Date of Service: Jan 12, 2021 History and Physical Chief complaint: Who presented to the ER after she nearly passed out History of present illness: Patient is 75-year-old female who presented to the emergency room after she was reporting feeling hot and having a sensation of her legs feeling heavy. Patient reported that she was at the side of the building and walking toward the gas pump when she began to experience these symptoms. Patient reported that the symptoms occurred for less than 10-20 seconds and patient was able to sit down and side of her car. She had been called her granddaughter. Patient reports that she did not express any falls or loss of consciousness. Currently patient denies any lightheadedness or dizziness. Denies any chest pain, shortness breath, palpitations or cough. Has not expressed any nausea, vomiting, abdominal pain consultation, diarrhea, or urinary discomfort/ Denies any fevers or chills. Denies any changes in her weight or appetite. 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 Review of Systems: 10 point review of systems complete, all negative otherwise stated in HPI Physical exam: - Vitals: BP [174/89], HR [72], RR [18], Sat [97%RA], Temp [98.3F] - General: Lying in bed, No acute distress, Speaking in full sentences, AAOx3 - HEENT: NC, AT, PERRLA - CVS: RRR, +S1S2 - Lungs: Fair air entry bilaterally, No appreciable wheezing / rales / rhonchi - Abdomen: Soft, Non-distended, Non-tender - Extremities: No lower extremity edema, No calf tenderness - Neuro: No focal motor or sensory deficit - Skin: No visible rashes Labs: See below Imaging: CT Head 01/12: Negative noncontrast CT brain. CXR 01/12: Cardiomegaly. Vascular cephalization. No evidence of pleural effusion or pulmonary edema. EKG: See below Assessment and Plan: Pre-syncope - Patient presented to the emergency room after they had reported feeling hot and her legs getting heavy - She reported that this lasted for about 10-20 seconds - Physical does not reveal any focal neurologic deficits - EKG reviewed without any ischemic changes - Troponin 1 set negative - Imaging noted above - Will check ECHO / Troponin trend / Telemetry monitoring / MRI brain - Will order PT/HSE Hypertensive urgency - In the emergency room, patient was found to have systolic blood pressure in the 200s - Patient reports that while at home. Her blood pressure typically runs in the 160s - Will resume home BP medications; Amlodipine (will increase dose) - Will start Hydralazine PRN Paroxysmal A fib - Currently is in sinus rhythm - Patient is currently not on any rate control medications - c/w full anticoagulation with Eliquis DLP - c/w Atorvastatin CKD3 - Hx of Nephrolithiasis - Renal function appears to be at baseline Ulcerative colitis - s/p Colectomy + Ileostomy Depression - c/w Escitalopram GERD - c/w PPI DVT prophylaxis - Will c/w full anticoagulation with Eliquis Vital Signs Vital Signs Date Time Temp Pulse Resp B/P (MAP) Pulse Ox O2 Delivery O2 Flow Rate FiO2 01/12/21 16:45 154/65 (94) 01/12/21 16:41 67 97 01/12/21 12:42 98.3 18 Room Air Laboratory Data Labs 24H Laboratory Tests 2 01/12/21 14:10: Immature Granulocyte % (Auto) 0.5, Neutrophils (%) (Auto) 52.5, Lymphocytes (%) (Auto) 30.9, Monocytes (%) (Auto) 6.8, Eosinophils (%) (Auto) 8.4H, Basophils (%) (Auto) 0.9, Neutrophils # (Auto) 4.7, Lymphocytes # (Auto) 2.7, Monocytes # (Auto) 0.6, Eosinophils # (Auto) 0.7H, Basophils # (Auto) 0.1, Nucleated Red Bl ood Cells % (auto) 0.0, Anion Gap 5L, Glomerular Filtration Rate 55.9, Calcium Level 8.7L, Magnesium Level 2.0, Total Creatine Kinase 80, Creatine Kinase MB 1.5, Creatine Kinase MB Relative Index 1.88, Troponin I < 0.02, Thyroid Stimulating Hormone (TSH) 0.836, Free Thyroxine 0.80, Coronavirus (COVID- 19)(PCR) NEGATIVE, Influenza Type A (RT-PCR) NEGATIVE, Influenza Type B (RT-PCR) NEGATIVE, Respiratory Syncytial Virus (PCR) NEGATIVE CBC/BMP Laboratory Tests 01/12/21 14:10 Home Medications Scheduled Amlodipine Besylate (Amlodipine Besylate) 5 Mg Tablet, 2.5 MG PO DAILY Apixaban (Eliquis) 5 Mg Tablet, 5 MG PO BID Atorvastatin Calcium (Atorvastatin Calcium) 10 Mg Tablet, 10 MG PO QHS Escitalopram Oxalate (Lexapro) 5 Mg Tablet, 5 MG PO DAILY Pantoprazole Sodium (Pantoprazole Sodium) 40 Mg Tablet.dr, 40 MG PO BID Psyllium Husk/Aspartame (Metamucil Fiber Singles Packet) 3.4 Gm Powd.pack, 1 PKT PO BID Scheduled PRN Acetaminophen (Acetaminophen) 325 Mg Tablet, 650 MG PO Q6HP PRN for PAIN / FEVER Allergies Coded Allergies: No Known Allergies (Unverified , 01/11/20) MARY ELLEN BASS MD Jan 12, 2021 17:06
[2021-01-12] MEDS ORDERED: APAP325T4 PO (17:12)
[2021-01-12] MEDS ORDERED: HOME MED LIST COMPLETE! XX SCH (17:15)
[2021-01-12 20:30] VITALS: BP 181/79
[2021-01-12] MEDS: amLODIPine 5 MG TAB PO SCH (21:11)
[2021-01-12] MEDS: hydrALAZINE 20MG/ML 1ML VIAL (J0360 PER 20MG) IV SCH (21:11)
[2021-01-12 21:27] LABS: CK-MB VALUE MASS < 1.0 NG/ML (<3.6); CPK CREATINE PHOSPHOKINASE 70 U/L (26-192); MB/CK RELATIVE INDEX 1.43 (< OR =4); TROPONIN I < 0.02 NG/ML (< 0.10)
[2021-01-12] MEDS ORDERED: LORazepam 0.5 MG TAB PO ONE (21:30)
--- NOTE | 2021-01-12 23:33 | REPVR ---
PROCEDURE INFORMATION: Exam: MR Head Without Contrast Exam date and time: 01/12/2021 10:30 PM Age: 75 years old Clinical indication: Pain; Headache not specified; Additional info: R/O CVA TECHNIQUE: Imaging protocol: MR of the head without contrast. COMPARISON: CT Head without contrast 01/12/2021 1:01 PM FINDINGS: Brain: Mild chronic microvascular ischemic changes. Cerebral ventricles: Normal. No ventriculomegaly. Bones/joints: Unremarkable. Paranasal sinuses: Normal as visualized. No acute sinusitis. Mastoid air cells: Normal as visualized. No mastoid effusion. Orbital cavity: Unremarkable. Soft tissues: Unremarkable. IMPRESSION: No acute intracranial abnormality. Electronically signed by: Alan Deleon On 01/12/2021 23:32:39 PM
[2021-01-13] VITALS: BP 145/65
[2021-01-13 02:51] LABS: CK-MB VALUE MASS 1.1 NG/ML (<3.6); CPK CREATINE PHOSPHOKINASE 68 U/L (26-192); MB/CK RELATIVE INDEX 1.62 (< OR =4); TROPONIN I < 0.02 NG/ML (< 0.10)
[2021-01-13 04:00] VITALS: BP 145/65
[2021-01-13] MEDS: hydrALAZINE 20MG/ML 1ML VIAL (J0360 PER 20MG) IV SCH (04:16)
[2021-01-13 05:58] LABS: BASO # 0.1 10^3/uL (0.0-0.2); BASO % 1.1 % (0.0-1.0); EOS # 0.7 10^3/uL (0.0-0.5); EOS % 8.2 % (0.0-3.0); HEMATOCRIT 39.5 % (36.0-47.0); HEMOGLOBIN 12.7 g/dl (12.0-15.5); LYMPH # 2.9 10^3/uL (1.5-5.0); LYMPH % 33.8 % (24.0-44.0); MEAN CORPUSCULAR HEMOGLOBIN 29.7 pg (27.0-33.0); MEAN CORPUSCULAR HGB CONC 32.2 g/dl (32.0-36.5); MEAN CORPUSCULAR VOLUME 92.5 fl (80.0-96.0); MONO # 0.6 10^3/uL (0.0-0.8); MONO % 6.9 % (2.0-8.0); NEUTROPHILS # 4.3 10^3/uL (1.5-8.5); NEUTROPHILS % 49.8 % (36.0-66.0); PLATELET COUNT, AUTOMATED 272 10^3/uL (150-450); RED BLOOD COUNT 4.27 10^6/uL (4.00-5.40); WHITE BLOOD COUNT 8.6 10^3/uL (4.0-10.0)
--- NOTE | 2021-01-13 06:06 | ECGEPIP ---
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
[2021-01-13 06:20] LABS: BLOOD UREA NITROGEN 13 MG/DL (7-18); CALCIUM LEVEL 9.1 MG/DL (8.8-10.2); CARBON DIOXIDE LEVEL 25 MEQ/L (21-32); CHLORIDE LEVEL 111 MEQ/L (98-107); CREATININE FOR GFR 0.93 MG/DL (0.55-1.30); GLOMERULAR FILTRATION RATE > 60.0 (>39); GLUCOSE, FASTING 83 MG/DL (70-100); MAGNESIUM LEVEL 2.1 MG/DL (1.8-2.4); SODIUM LEVEL 142 MEQ/L (136-145)
[2021-01-13 07:15] VITALS: BP 133/61
[2021-01-13 08:42] VITALS: BP 133/61
[2021-01-13] MEDS: amLODIPine 5 MG TAB PO SCH (08:42)
[2021-01-13] MEDS ORDERED: AMLO1TAB24 PO (09:00)
[2021-01-13] MEDS ORDERED: FLUBLOK(EGG FREE)(QUAD)INFLUENZA VACC 0.5ML SYRINGE 18YRS & OLDER IM ONE (09:00)
[2021-01-13] MEDS ORDERED: APIXABAN 5 MG TAB (ELIQUIS) PO SCH (09:00)
[2021-01-13] MEDS ORDERED: ATORVASTATIN 10 MG TAB PO SCH (09:00)
[2021-01-13] MEDS ORDERED: ESCITALOPRAM OXALATE 5MG TABLET (LEXAPRO) PO SCH (09:00)
--- NOTE | 2021-01-13 12:04 | DS.PDOC ---
Discharge Summary General Date of Admission Jan 12, 2021 at 12:42 Date of Discharge 01/13/2021 Discharge Summary PROCEDURES PERFORMED DURING STAY: [None]. ADMITTING DIAGNOSES / DISCHARGE DIAGNOSES: Pre-syncope - possibly 2/2 hypertensive urgency HTN Paroxysmal A fib DLP CKD3 Ulcerative colitis Depression GERD DVT prophylaxis COMPLICATIONS/CHIEF COMPLAINT: Near Syncope. HISTORY OF PRESENT ILLNESS: Patient is 75-year-old female who presented to the emergency room after she was reporting feeling hot and having a sensation of her legs feeling heavy. Patient reported that she was at the side of the building and walking toward the gas pump when she began to experience these symptoms. Patient reported that the symptoms occurred for less than 10-20 seconds and patient was able to sit down and side of her car. She had been called her granddaughter. Patient reports that she did not experience any falls or loss of consciousness. Patient was admitted to hospital service for further evaluation and treatment of her presyncopal episode. Patient was seen and examined at the bedside. Currently denies any chest pain, short of breath, palpitations, nausea, vomiting, abdominal pain or diarrhea. Patient has worked with physical therapy and has been cleared for discharge home. HOSPITAL COURSE: Pre-syncope - possibly 2/2 hypertensive urgency - Patient presented to the ER after they had reported feeling hot and her legs getting heavy; she reported that this lasted for about 10-20 seconds - Patient has not had any recurrence of her symptoms since admission. Telemetry has been reviewed without any findings - Physical again does not reveal any focal neurologic deficits - EKG reviewed without any ischemic changes - Troponin 3 negative - Imaging noted above - ECHO complete; will have outpatient follow-up with primary care provider - Patient has worked with physical therapy and has been cleared for discharge home - Will have outpatient follow-up with primary care provider and cardiology within the next 7 days HTN - s/p Hypertensive urgency - In the ER, patient was found to have systolic blood pressure in the 200s - Patient reports that while at home her blood pressure typically runs in the 160s - s/p Hydralazine PRN - c/w Amlodipine 5 daily on discharge - Will have outpatient follow-up with primary care provider, and cardiology for adjustment of medications within the next 7 days Paroxysmal A fib - Currently is in sinus rhythm - Patient is currently not on any rate control medications - c/w full anticoagulation with Eliquis DLP - c/w Atorvastatin CKD3 - Hx of Nephrolithiasis - Renal function appears to be at baseline Ulcerative colitis - s/p Colectomy + Ileostomy Depression - c/w Escitalopram GERD - Currently not on any medications DVT prophylaxis - Will c/w full anticoagulation with Eliquis DISCHARGE MEDICATIONS: Please see below. ALLERGIES: Please see below. PHYSICAL EXAMINATION ON DISCHARGE: Vitals (See below) General: Sitting up in bed, appears comfortable, not in any acute distress, is oriented to person, place and time HEENT: Normal cephalic and atraumatic CVS: +S1S2 Lungs: Fair air entry b/l, nevus wheezing with rhonchi Abdomen: Soft, ND, NT Extremities: - Edema, - Calf tenderness LABORATORY DATA: Please see below. IMAGING: CT Head 01/12: Negative noncontrast CT brain. CXR 01/12: Cardiomegaly. Vascular cephalization. No evidence of pleural effusion or pulmonary edema. MRI brain 01/12: No acute intracranial abnormality. ACTIVITY: [As tolerated]. DISCHARGE PLAN: Follow up with PCP and Cardiology within 7 days Remain compliant with treatment plan and medications Return to the ER if you experience any problems DISPOSITION: Home with services DISCHARGE CONDITION: [Stable]. TIME SPENT ON DISCHARGE: 35 minutes. Vital Signs/I&Os Vital Signs Date Time Temp Pulse Resp B/P (MAP) Pulse Ox O2 Delivery O2 Flow Rate FiO2 01/13/21 08:42 60 133/61 01/13/21 07:15 98.0 18 95 Room Air I&O- Last 24 Hours up to 6 AM 01/13/21 05:59 Intake Total 240 ml Output Total 250 ml Balance -10 ml Laboratory Data Labs 24H Laboratory Tests 2 01/12/21 14:10: Immature Granulocyte % (Auto) 0.5, Neutrophils (%) (Auto) 52.5, Lymphocytes (%) (Auto) 30.9, Monocytes (%) (Auto) 6.8, Eosinophils (%) (Auto) 8.4H, Basophils (%) (Auto) 0.9, Neutrophils # (Auto) 4.7, Lymphocytes # (Auto) 2.7, Monocytes # (Auto) 0.6, Eosinophils # (Auto) 0.7H, Basophils # (Auto) 0.1, Nucleated Red Blood Cells % (auto) 0.0, Anion Gap 5L, Glomerular Filtration Rate 55.9, Calcium Level 8.7L, Magnesium Level 2.0, Total Creatine Kinase 80, Creatine Kinase MB 1.5, Creatine Kinase MB Relative Index 1.88, Troponin I < 0.02, Thyroid Stimulating Hormone (TSH) 0.836, Free Thyroxine 0.80, Coronavirus (COVID- 19)(PCR) NEGATIVE, Influenza Type A (RT-PCR) NEGATIVE, Influenza Type B (RT-PCR) NEGATIVE, Respiratory Syncytial Virus (PCR) NEGATIVE 01/12/21 20:38: Total Creatine Kinase 70, Creatine Kinase MB < 1.0, Creatine Kinase MB Relative Index 1.43, Troponin I < 0.02 01/13/21 02:14: Total Creatine Kinase 68, Creatine Kinase MB 1.1, Creatine Kinase MB Relative Index 1.62, Troponin I < 0.02 01/13/21 05:12: Immature Granulocyte % (Auto) 0.2, Neutrophils (%) (Auto) 49.8, Lymphocytes (%) (Auto) 33.8, Monocytes (%) (Auto) 6.9, Eosinophils (%) (Auto) 8.2H, Basophils (%) (Auto) 1.1H, Neutrophils # (Auto) 4.3, Lymphocytes # (Auto) 2.9, Monocytes # (Auto) 0.6, Eosinophils # (Auto) 0.7H, Basophils # (Auto) 0.1, Nucleated Red Blood Cells % (auto) 0.0, Anion Gap 6L, Glomerular Filtration Rate > 60.0, Calcium Level 9.1, Magnesium Level 2.1 CBC/BMP Laboratory Tests 01/12/21 14:10 01/13/21 05:12 Discharge Medications Scheduled Amlodipine Besylate (Amlodipine Besylate) 5 Mg Tablet, 5 MG PO DAILY Apixaban (Eliquis) 5 Mg Tablet, 5 MG PO BID, (Reported) Atorvastatin Calcium (Atorvastatin Calcium) 10 Mg Tablet, 10 MG PO DAILY, (Reported) Escitalopram Oxalate (Lexapro) 5 Mg Tablet, 5 MG PO DAILY, (Reported) Scheduled PRN Acetaminophen (Acetaminophen) 325 Mg Tablet, 650 MG PO Q6H PRN for PAIN LEVEL 1- 4, (Reported) Allergies Coded Allergies: No Known Allergies (Unverified , 01/11/20) MARY ELLEN BASS MD Jan 13, 2021 12:04
--- NOTE | 2021-01-16 12:43 | ECHO ---
ECHOCARDIOGRAM DATE OF PROCEDURE: 01/13/2021 Age: 75 Gender: Female Height: 152 cm Weight: 66 kg REFERRING PROVIDER: Dez Mcgill M.D. PATIENT LOCATION: Room 3223. REASON FOR THE STUDY: Syncope. MEASUREMENTS: 2D Measurements: IVS 1.5 cm LV 3.7 cm LVPW 1.3 cm LA 4.0 cm Aorta 2.8 cm Doppler Measurements: Peak velocity across the aortic valve 1.4 m/sec Peak velocity across the LVOT 1.1 m/sec Peak gradient across the aortic valve 8 mmHg Mitral E 0.49 Mitral A 0.98 with a ratio of 0.5 Maximum tricuspid valve velocity 2.5 m/sec 2D COMMENTS: 1. Normal left ventricular size with mildly increased left ventricular wall thickness. Left ventricular systolic function is normal. The estimated left ventricular systolic ejection fraction is 60-65%. 2. Borderline enlarged left atrium. Normal right atrium and right ventricle. There was a sigmoid appearance of the basal ventricular septum. 3. The atrial septum appeared to be normal without evidence of defect or shunt. 4. Normal aortic root. 5. No pericardial effusion seen. 6. Mildly calcified aortic valve with normal leaflet excursion. Mildly calcified mitral annulus with normal anterior mitral valve leaflet motion. Normal tricuspid valve. The pulmonic valve and proximal pulmonary artery branches were not well visualized. 7. The inferior vena cava was not visualized. DOPPLER: It detects trace mitral regurgitation and mild tricuspid regurgitation. The calculated pulmonary artery pressure varies between 30-40 mmHg. Abnormal relaxation pattern was noted across the mitral valve leaflets as well as the mitral valve annulus consistent with features of grade 1 left ventricular diastolic dysfunction. IMPRESSION: 1. Normal global left ventricular systolic function. There are some features of grade 1 left ventricular diastolic dysfunction manifested by abnormal relaxation. 2. Aortic valve sclerosis without stenosis or aortic regurgitation. 3. Mitral annulus calcification with trace mitral regurgitation and borderline enlarged left atrium. 4. Mild tricuspid regurgitation with mild pulmonary hypertension. 5. A sigmoid appearance of the basal ventricular septum was noted.
== END 2021-01-13 12:06 | disposition home or self-care (01) ==
LOC: M ED 12:41 → M ED INP 12:42 → M PCU 20:21
PROVIDERS: ADMIT Internal Medicine; ATTEND Internal Medicine
DX: R55 Syncope and collapse (principal); I16.0 Hypertensive urgency; I48.0 Paroxysmal atrial fibrillation; E78.5 Hyperlipidemia, unspecified; N18.30 Chronic kidney disease, stage 3 unspecified; K51.90 Ulcerative colitis, unspecified, without complications; F32.9 Major depressive disorder, single episode, unspecified; K21.9 Gastro-esophageal reflux disease without esophagitis; I12.9 Hypertensive chronic kidney disease with stage 1 through stage 4 chronic kidney disease, or unspecified chronic kidney disease; Z79.899 Other long term (current) drug therapy; Z79.01 Long term (current) use of anticoagulants; Z87.891 Personal history of nicotine dependence; Z87.442 Personal history of urinary calculi
CPT/HCPCS: 36415; 70450; 70551; 71045; 80048; 82550; 82553; 83735; 84439; 84443; 84484; 85025; 87631; 90682; 93005; 93041; 93306; 94760; 96374; 97116; 97161; 99285; G0008; G0378; J0360

== ENCOUNTER 2021-02-17 22:26 | Emergency (ER) | payer MEDICARE ==
[~2021-02-17] VITALS: Ht 160 cm; Wt 67.7 kg
[2021-02-17 22:26] VITALS: BP 132/84
[~2021-02-17 22:26] MED LIST changes: +APAP325T4 PO
--- OUTSIDE RECORDS SUMMARY | 2021-02-17 22:33 | CCD ---
Author Organization Unknown Address [address] [place] [id number] Phone [phone] Care Team Providers Care Complaint Evaluation Supervisor Name Role Phone José Ayala Unavailable Unavailable Allergies Code Code System Name Reaction Severity Status Onset NKDA Notes: SEASONAL Medications Name Status Start Date Stop Date allopurinol 100 mg tablet 1 tablet per day Completed 04/08/2020 amiodarone 200 mg tablet 1 tablet per day Completed 02/26/2020 amlodipine 5 mg tablet TAKE 1/2 TABLET BY MOUTH ONCE DAILY Completed atorvastatin 10 mg tablet TAKE ONE TABLET BY MOUTH ONCE DAILY Active Not available cephalexin 500 mg capsule 1 tablet per day Completed 02/26/2020 colostomy bag, non-sterile Active Not a vailable colostomy washer Active Not available Eliquis 2.5 mg tablet Completed 02/26/2020 Eliquis 5 mg tablet TAKE ONE TABLET BY MOUTH TWICE DAILY Active No t available escitalopram 5 mg tablet TAKE ONE TABLET BY MOUTH ONCE DAILY Active Not available fluoxetine 20 mg capsule Completed fluoxetine 40 mg capsule Completed 020 lisinopril 10 mg tablet TAKE ONE TABLET BY MOUTH TWICE DAILY Completed magnesium 400 mg (as magnesium oxide) ta blet TAKE ONE TABLET BY MOUTH ONCE DAILY Active Not available magnesium oxide 400 mg (241.3 mg magnesi um) tablet TAKE ONE TABLET BY MOUTH ONCE DAILY Active Not available Metamucil (sugar) oral powder Take 3.4 g twice a day by oral route. 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 History Hand Pain Unknown 09/08/2019 History Vitamin D Deficiency Active 09/23/2019 History Mixed Hyperlipidemia Active 09/23/2019 History Spondylosis without Myelopathy Active 09/23/2019 H istory Heartburn Active 09/23/2019 History Procedure by Method Unknown 09/23/2019 History Acidosis Active 12/05/2019 History Hypertensive Renal Disease Active 12/05/2019 Histo ry Chronic Kidney Disease Stage 3 Active 12/05/2019 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 0 10 [facility]: [address] [place] [address] Low Red Blood Count 2.93 10 4.00-5.40 10 [facility]: [address] [place] [address] Low Hemoglobin 8.5 g/dL 12.0-15.5 g/dL F inal [facility]: [address] [facility] Low Hematocrit 27.5 % 36.0-47.0 % [facility]: 0 [facility] Normal Mean Corpuscular Volume 93.9 fL 80.0 -96.0 fL [facility]: 0 [facility] Normal Mean Corpuscular Hemoglobin 29.0 pg 27.0-33.0 pg [facility]: 0 [facility] Low Mean Corpuscular HGB Conc 30.9 g/dL 32.0-36.5 g/dL [facility]: 0 [facility] Normal Red Cell Distribution Width 13.2 % 1 1.5-14.5 % [facility]: 0 [facility] Low Platelet Count, Automated 146 10 150 -450 10 [facility]: 0 [facility] Normal Nucleated Red Blood Cell % 0.0 % 0- 0 % [facility]: [address] [facility] 05/19/2020 BMP, Serum or Plasma Normal Glucose, Fastin g 80 mg/dL 70-100 mg/dL [facility]: 83 0 [facility] High Blood Urea Nitrogen 39 mg/dL 7-18 mg /dL [facility]: [address] [place] [address] Normal Creatinine for GFR 1.26 mg/dL 0.55-1 .30 mg/dL [facility]: [address] [place] [address] Normal Glomerular Filtration Rate 44.4 >3 9 [facility]: [address] [place] [address] Normal Sodium Level 143 mEq/L 136-145 mEq/L [facility]: [address] [place] [address] Normal Potassium Serum 4.3 mEq/L 3.5-5.1 mE q/L [facility]: [address] [place] [address] High Chloride Level 111 mEq/L 98-107 mEq/ L [facility]: [address] [place] [address] Normal Carbon Dioxide Level 28 mEq/L 21-32 mEq/L [facility]: [address] [place] [address] Low Anion Gap 4 mEq/L 8-16 mEq/L [facility]: [address] [place] [address] Low Calcium Level 8.3 mg/dL 8.8-10.2 mg/ dL [facility]: 0 [facility] 05/18/2020 Cbc Normal White Blood Count 5.6 10 4.0-10. 0 10 [facility]: 0 [facility] Low Red Blood Count 2.95 10 4.00-5.40 10 [facility]: [address] [place] [address] Low Hemoglobin 8.6 g/dL 12.0-15.5 g/dL F inal [facility]: [address] [facility] Low Hematocrit 27.1 % 36.0-47.0 % [facility]: [address] [facility] Normal Mean Corpuscular Volume 91.9 fL 80.0 -96.0 fL [facility]: 830 [facility] Normal Mean Corpuscular Hemoglobin 29.2 pg 27.0-33.0 pg [facility]: 0 [facility] Low Mean Corpuscular HGB Conc 31.7 g/dL 32.0-36.5 g/dL [facility]: [address] [facility] Normal Red Cell Distribution Width 13.4 % 1 1.5-14.5 % [facility]: 0 [facility] Normal Platelet Count, Automated 163 10 150 -450 10 [facility]: 0 [facility] Normal Nucleated Red Blood Cell % 0.0 % 0- 0 % [facility]: 0 [facility] 05/18/2020 BMP, Serum or Plasma Normal Glucose, Fastin g 83 mg/dL 70-100 mg/dL [facility]: 83 0 [facility] High Blood Urea Nitrogen 55 mg/dL 7-18 mg /dL [facility]: 0 [facility] Dh Creatinine for GFR 1.54 mg/dL 0.55-1 .30 mg/dL [facility]: [address] [place] [address] Low Glomerular Filtration Rate 35.3 >3 9 [facility]: [address] [facility] Normal Sodium Level 143 mEq/L 136-145 mEq/L [facility]: 0 [facility] Normal Potassium Serum 4.1 mEq/L 3.5-5.1 mE q/L [facility]: 0 [facility] High Chloride Level 109 mEq/L 98-107 mEq/ L [facility]: 0 [facility] Normal Carbon Dioxide Level 29 mEq/L 21-32 mEq/L [facility]: 0 [facility] Low Anion Gap 5 mEq/L 8-16 mEq/L [facility]: [address] [place] [address] Low Calcium Level 7.7 mg/dL 8.8-10.2 mg/ dL [facility]: [address] [place] [address] 05/17/2020 Cbc Normal White Blood Count 4.2 10 4.0-10. 0 10 [facility]: [address] [place] [address] Low Red Blood Count 2.77 10 4.00-5.40 10 [facility]: [address] [place] [address] Low Hemoglobin 8.2 g/dL 12.0-15.5 g/dL F inal [facility]: [address] [place] [address] Low Hematocrit 24.6 % 36.0-47.0 % [facility]: [address] [place] [address] Normal Mean Corpuscular Volume 88.8 fL 80.0 -96.0 fL [facility]: [address] [place] [address] Normal Mean Corpuscular Hemoglobin 29.6 pg 27.0-33.0 pg [facility]: [address] [place] [address] Normal Mean Corpuscular HGB Conc 33.3 g/dL 32.0-36.5 g/dL [facility]: [address] [place] [address] Normal Red Cell Distribution Width 13.2 % 1 1.5-14.5 % [facility]: [address] [place] [address] Low Platelet Count, Automated 141 10 150 -450 10 [facility]: [address] [place] [address] Normal Nucleated Red Blood Cell % 0.0 % 0- 0 % [facility]: [address] [place] [address] 05/17/2020 Urinalysis, Dipstick Normal Appearance, Uri ne clear clear [facility]: [address] [place] [address] Normal Color, Urine straw yellow [facility]: [address] [place] [address] Normal pH,urine 6.0 units 5.0-9.[address] [facility]: [address] [place] [address] Normal Specific [place] Urine Auto 1.010 1 .002-1.035 [facility]: [address] [facility] Normal Protein, Urine Auto negative mg/dL n egative mg/dL [facility]: [address] [facility] Normal Glucose, Urine (UA) Auto negative mg /dL negative mg/dL [facility]: [address] [facility] Normal Ketone, Urine Auto negative mg/dL ne gative mg/dL [facility]: [address] [facility] Normal Urobilinogen, Urine Auto 0.2 mg/dL 0 .0-2.0 mg/dL [facility]: [address] [facility] Normal Bilirubin, Urine Auto negative negat timi [facility]: [address] [facility] Normal Nitrite, Urine Auto negative negativ e [facility]: [address] [facility] Normal Leukocyte Esterase, Urine Auto negat timi negative [facility]: [address] [facility] Normal Blood, Urine Blood negative negative [facility]: [address] [facility] Normal WBC, Urine Auto 1 /hpf 0-3 /hpf [facility]: [address] [facility] Normal RBC, Urine Auto 2 /hpf 0-3 /hpf [facility]: [address] [facility] High Bacteria, Urine Auto 1+ negative [facility]: [address] [facility] Normal Squamous Epithelial Cell Ur AU 0 /hp f 0-6 /hpf [facility]: [address] [facility] Normal Mucus, Urine small negative [facility]: [address] [facility] Normal Hyaline Cast, Urine Auto 0 /lpf 0-1 /lpf [facility]: [address] [facility] 05/17/2020 CMP, Serum or Plasma High Glucose, Fastin g 163 mg/dL 70-100 mg/dL [facility]: 83 0 [facility] High Blood Urea Nitrogen 79 mg/dL 7-18 mg /dL [facility]: [address] [facility] High Creatinine for GFR 3.38 mg/dL 0.55-1 .30 mg/dL [facility]: [address] [place] [address] Low Glomerular Filtration Rate 14.2 >3 9 [facility]: [address] [place] [address] Normal Sodium Level 140 mEq/L 136-145 mEq/L [facility]: [address] [place] [address] Normal Potassium Serum 4.1 mEq/L 3.5-5.1 mE q/L [facility]: [address] [place] [address] Normal Chloride Level 107 mEq/L 98-107 mEq/ L [facility]: [address] [place] [address] Normal Carbon Dioxide Level 27 mEq/L 21-32 mEq/L [facility]: [address] [place] [address] Low Anion Gap 6 mEq/L 8-16 mEq/L [facility]: [address] [place] [address] Low Calcium Level 7.5 mg/dL 8.8-10.2 mg/ dL [facility]: [address] [place] [address] Low AST/SGOT 5 U/L 7-37 U/L [facility]: [address] [place] [address] Low ALT/SGPT 7 U/L 12-78 U/L [facility]: [address] [place] [address] Normal Alkaline Phosphatase 54 U/L 45-117 U /L [facility]: [address] [place] [address] D Bilirubin,total 0.8 mg/dL 0.2-1.0 mg /dL [facility]: [address] [place] [address] Low Total Protein 5.0 gm/dL 6.4-8.2 gm/d L [facility]: [address] [place] [address] Low Albumin 2.6 gm/dL 3.2-5.2 gm/dL Eliz l [facility]: [address] [place] [address] Low Albumin/globulin Ratio 1.1 1.2-2. 2 [facility]: [address] [place] [address] 05/17/2020 Phosphorus Level High Phosphorus Level 6 .7 mg/dL 2.5-4.9 mg/dL [facility]: 0 [facility] 05/17/2020 Magnesium, Serum or Plasma Normal Magnesium Level 1.9 mg/dL 1.8-2.4 mg/dL [facility]: 83 0 [facility] 05/17/2020 TIBC (Total Iron-binding Capacity), Serum High Iron (Fe) 185 ug/dL 50-170 ug/dL [facility] nter: [address] [place] [address] Normal Total Iron Binding Capacity 259 ug/d L 250-450 ug/dL [facility]: [address] [place] [address] High Percent Saturation 71.4 % 13.2-45.0 % [facility]: [address] [place] [address] 05/17/2020 Vitamin B12, Serum Normal Vitamin B12 Level 295 pg/mL 247-911 pg/mL [facility]: 83 0 [facility] 05/17/2020 Ferritin, Serum or Plasma Normal Ferritin 130 NG/mL 8-252 NG/mL [facility]: 83 0 [facility] 05/17/2020 Cortisol, Am, Serum High Cortisol AM 34. 8 ug/dL 4.3-22.4 ug/dL [facility]: 0 [facility] 05/17/2020 Culture, Urine URINE,CATHETERIZED No observation recorded. [facility]: 0 [facility] 05/16/2020 Glucose, Fingerstick, Blood Normal Bedside Glucose 93 mg/dL 83- 110 mg/dL [facility]: 83 0 [facility] 05/16/2020 BMP, Serum or Plasma Normal Glucose, Fastin g 95 mg/dL 70-100 mg/dL [facility]: 83 0 [facility] High Blood Urea Nitrogen 115 mg/dL 7-18 m g/dL [facility]: 0 [facility] Panic High Creatinine for GFR 11.00 mg/dL 0 .55-1.30 mg/dL [facility]: 0 [facility] Low Glomerular Filtration Rate 3.6 >3 9 [facility]: 830 [facility] Sodium Level 139 mEq/L 136-145 mEq/L [facility]: 0 [facility] D Potassium Serum 4.6 mEq/L 3.5-5.1 mE q/L [facility]: [address] [place] [address] High Chloride Level 109 mEq/L 98-107 mEq/ L [facility]: [address] [place] [address] Low Carbon Dioxide Level 17 mEq/L 21-32 mEq/L [facility]: [address] [place] [address] Normal Anion Gap 13 mEq/L 8-16 mEq/L [facility]: [address] [place] [address] Panic Low Calcium Level 7.4 mg/dL 8.8-10.2 mg/dL [facility]: [address] [place] [address] 05/16/2020 Gas Panel, Arterial Blood CRITICAL LOW ABG pH (Arterial) 7.151 units 7.350-7.450 units [facility] nter: [address] [place] [address] Low ABG Partial Pressure CO2 24.1 mmHg 3 5.0-45.0 mmHg [facility]: [address] [place] [address] High ABG Partial Pressure O2 119.0 mmHg 7 5.0-100.0 mmHg [facility]: [address] [place] [address] Low ABG Total CO2 9.0 mEq/L 23.0-31.0 mE q/L [facility]: [address] [place] [address] Low Abg Hco3 8.2 mEq/L 22.0-26.0 mEq/L F inal [facility]: [address] [place] [address] Low ABG Base Excess -18.9 -2.0-2.0 Eliz l [facility]: [address] [place] [address] Low ABG Standard HCO3 9.8 mEq/L 22.0-26. 0 mEq/L [facility]: [address] [place] [address] Normal ABG O2 Saturation 97.4 % 95.0-99.0 % [facility]: [address] [facility] 05/16/2020 Cbc Normal White Blood Count 6.5 10 4.0-10. 0 10 [facility]: [address] [facility] Low Red Blood Count 2.59 10 4.00-5.40 10 [facility]: [address] [facility] Panic Low Hemoglobin 7.6 g/dL 12.0-15.5 g/d L [facility]: [address] [facility] Low Hematocrit 24.0 % 36.0-47.0 % [facility]: 8[address] [facility] Normal Mean Corpuscular Volume 92.7 fL 80.0 -96.0 fL [facility]: 0 [facility] Normal Mean Corpuscular Hemoglobin 29.3 pg 27.0-33.0 pg [facility]: [address] [place] [address] Low Mean Corpuscular HGB Conc 31.7 g/dL 32.0-36.5 g/dL [facility]: 0 [facility] Normal Red Cell Distribution Width 13.9 % 1 1.5-14.5 % [facility]: 0 [facility] Normal Platelet Count, Automated 172 10 150 -450 10 [facility]: 0 [facility] Normal Nucleated Red Blood Cell % 0.0 % 0- 0 % [facility]: 0 [facility] 05/16/2020 CMP, Serum or Plasma Normal Glucose, Fastin g 90 mg/dL 70-100 mg/dL [facility]: 83 0 [facility] High Blood Urea Nitrogen 100 mg/dL 7-18 m g/dL [facility]: 0 [facility] High Creatinine for GFR 7.63 mg/dL 0.55-1 .30 mg/dL [facility]: 0 [facility] Low Glomerular Filtration Rate 5.6 >3 9 [facility]: 0 [facility] Normal Sodium Level 142 mEq/L 136-145 mEq/L [facility]: [address] [facility] Normal Potassium Serum 4.6 mEq/L 3.5-5.1 mE q/L [facility]: [address] [facility] High Chloride Level 114 mEq/L 98-107 mEq/ L [facility]: [address] [facility] Low Carbon Dioxide Level 18 mEq/L 21-32 mEq/L [facility]: [address] [facility] Normal Anion Gap 10 mEq/L 8-16 mEq/L [facility]: 830 [facility] Low Calcium Level 6.6 mg/dL 8.8-10.2 mg/ dL [facility]: [address] [facility] Low AST/SGOT 4 U/L 7-37 U/L [facility]: [address] [facility] Low ALT/SGPT < 6 U/L 12-78 U/L [facility]: 8[address] [facility] Normal Alkaline Phosphatase 60 U/L 45-117 U /L [facility]: [address] [facility] Normal Bilirubin,total 0.4 mg/dL 0.2-1.0 mg /dL [facility]: [address] [facility] Panic Low Total Protein 5.0 gm/dL 6.4-8.2 g m/dL [facility]: [address] [facility] Panic Low Albumin 2.8 gm/dL 3.2-5.2 gm/dL F inal [facility]: [address] [facility] Normal Albumin/globulin Ratio 1.3 1.2-2. 2 [facility]: 8[address] [facility] 05/16/2020 Phosphorus Level High Phosphorus Level 7 .7 mg/dL 2.5-4.9 mg/dL [facility]: [address] [facility] 05/16/2020 Magnesium, Serum or Plasma Normal Magnesium Level 2.2 mg/dL 1.8-2.4 mg/dL [facility]: 83 0 [facility] 05/16/2020 Procalcitonin, Serum Normal Procalcitonin <0.0 5 [facility]: 0 [facility] 05/16/2020 BMP, Serum or Plasma High Glucose, Fastin g 121 mg/dL 70-100 mg/dL [facility]: 83 0 [facility] High Blood Urea Nitrogen 91 mg/dL 7-18 mg /dL [facility]: 0 [facility] High Creatinine for GFR 6.12 mg/dL 0.55-1 .30 mg/dL [facility]: 0 [facility] Low Glomerular Filtration Rate 7.2 >3 9 [facility]: 0 [facility] Normal Sodium Level 140 mEq/L 136-145 mEq/L [facility]: 0 [facility] Normal Potassium Serum 4.1 mEq/L 3.5-5.1 mE q/L [facility]: [address] [facility] High Chloride Level 111 mEq/L 98-107 mEq/ L [facility]: 830 [facility] Normal Carbon Dioxide Level 22 mEq/L 21-32 mEq/L [facility]: 0 [facility] Low Anion Gap 7 mEq/L 8-16 mEq/L [facility]: 0 [facility] Low Calcium Level 6.6 mg/dL 8.8-10.2 mg/ dL [facility]: [address] [facility] 05/16/2020 Cbc Normal White Blood Count 6.2 10 4.0-10. 0 10 [facility]: 0 [facility] Low Red Blood Count 2.58 10 4.00-5.40 10 [facility]: 0 [facility] Low Hemoglobin 7.4 g/dL 12.0-15.5 g/dL F inal [facility]: 0 [facility] Low Hematocrit 23.3 % 36.0-47.0 % [facility]: 0 [facility] Normal Mean Corpuscular Volume 90.3 fL 80.0 -96.0 fL [facility]: [address] [place] [address] Normal Mean Corpuscular Hemoglobin 28.7 pg 27.0-33.0 pg [facility]: [address] [place] [address] Low Mean Corpuscular HGB Conc 31.8 g/dL 32.0-36.5 g/dL [facility]: [address] [place] [address] Normal Red Cell Distribution Width 13.7 % 1 1.5-14.5 % [facility]: [address] [place] [address] Normal Platelet Count, Automated 186 10 150 -450 10 [facility]: [address] [place] [address] Normal Nucleated Red Blood Cell % 0.0 % 0- 0 % [facility]: [address] [place] [address] 05/16/2020 Crossmatch, Lrc, # Packed Ce lls transfused product: packed cells count: 1 [facility]: [address] [place] [address] 05/16/2020 Type + Screen, Serum Normal Blood Type O negat timi [facility]: [address] [place] [address] Normal Ab Screen (Indirect Shahid)vis posit timi [facility]: [address] [place] [address] 05/16/2020 Antibody Screen W/ Identification, Serum Normal Antibody Identification anti-K [facility]: [address] [place] [address] 05/16/2020 Blood Group Antigens, Blood Normal Antigen Identification K antigen: negative [facility] nter: [address] [place] [address] 05/16/2020 Culture, Blood BLOOD No observation recorded. [facility]: [address] [place] [address] 05/16/2020 Culture, Blood BLOOD No observation recorded. [facility]: [address] [place] [address] 05/15/2020 CBC W/ Auto Diff Normal White Blood Count 8.4 10 4.0-10.0 10 [facility]: [address] [place] [address] Low Red Blood Count 3.83 10 4.00-5.40 10 [facility]: [address] [facility] Low Hemoglobin 10.9 g/dL 12.0-15.5 g/dL [facility]: 830 [facility] Normal Hematocrit 36.4 % 36.0-47.0 % [facility]: 8[address] [facility] Normal Mean Corpuscular Volume 95.0 fL 80.0 -96.0 fL [facility]: 830 [facility] Normal Mean Corpuscular Hemoglobin 28.5 pg 27.0-33.0 pg [facility]: [address] [place] [address] Low Mean Corpuscular HGB Conc 29.9 g/dL 32.0-36.5 g/dL [facility]: [address] [place] [address] Normal Red Cell Distribution Width 13.9 % 1 1.5-14.5 % [facility]: [address] [place] [address] Normal Platelet Count, Automated 266 10 150 -450 10 [facility]: [address] [facility] High Neutrophils % 74.1 % 36.0-66.0 % [facility]: [address] [facility] Low Lymph % 18.5 % 24.0-44.0 % [facility]: 8[address] [facility] High Pinal % 6.2 % 0.0-5.0 % [facility]: 8[address] [facility] Normal Eos % 0.0 % 0.0-3.0 % [facility]: 0 [facility] Normal Baso % 0.5 % 0.0-1.0 % [facility]: 8[address] [facility] Normal Immature Granulocyte % 0.7 % 0-3.0 % [facility]: [address] [place] [address] Normal Nucleated Red Blood Cell % 0.0 % 0- 0 % [facility]: 0 [facility] Normal Neutrophils # 6.2 10 1.5-8.5 10 [facility]: [address] [facility] Normal Lymph # 1.6 10 1.5-5.0 10 [facility]: 8[address] [facility] Normal Pinal # 0.5 10 0.0-0.8 10 [facility]: [address] [facility] Normal Eos # 0.0 10 0.0-0.5 10 [facility]: 8[address] [facility] Normal Baso # 0.0 10 0.0-0.2 10 [facility]: 8[address] [facility] 05/15/2020 Gas Panel, Venous Blood Low Venous pH 6 .975 units 7.330-7.430 units [facility]: 83 0 [facility] Low Venous Partial Pressure CO2 37.8 mmH g 38.0-50.0 mmHg [facility]: 830 [facility] Normal Venous Partial Pressure O2 44.8 mmHg 30.0-50.0 mmHg [facility]: 830 [facility] Low Venous Total CO2 9.8 mEq/L 24.0-28.0 mEq/L [facility]: 830 [facility] Low Venous HCO3 8.6 mEq/L 23.0-27.0 mEq/ L [facility]: 0 [facility] Low Venous Base Excess -22.3 -2.0-2.0 [place] [facility]: 830 [facility] Normal Venous Standard HCO3 8.2 mEq/L [facility]: 830 [facility] Normal Venous O2 Saturation 75.4 % 60.0-80. 0 % [facility]: 830 [facility] 05/15/2020 Ammonia Normal Ammonia 11 umol/L <32 umol/L Fi [facility]: 0 [facility] 05/15/2020 Lactic Acid, Serum or Plasma Normal Lactic Acid Sepsis Protocol 0.9 mmol/L 0.4-2.0 mmol/L [facility]: [address] [place] [address] 05/15/2020 Influenza A/B RSV Covid Amp Normal Influenza a Amplification negative negative [facility] nter: 830 [facility] Normal Influenza B Amplification negative n egative [facility]: 830 [facility] Normal RSV Amplification negative negative [facility]: 830 [facility] Normal Sars Covid-19 Amplification negative negative [facility]: 830 [facility] 05/15/2020 Cardiovascular Assessment Panel, Serum Normal CPK Creatine Phosphokinase 41 U/L 26-192 U/L [facility]: 830 [facility] Normal CK-mb Value Mass 1.0 NG/mL <3.6 NG/m L [facility]: 0 [facility] Normal mb/CK Relative Index 2.44 < or =4 [facility]: 830 [facility] Normal Troponin I < 0.02 NG/mL < 0.10 NG/mL [facility]: 830 [facility] 05/15/2020 Hepatic Function Panel, Serum Low AST/SG OT < 3 U/L 7-37 U/L [facility]: 830 [facility] Low ALT/SGPT 9 U/L 12-78 U/L [facility]: 830 [facility] Normal Alkaline Phosphatase 99 U/L 45-117 U /L [facility]: 830 [facility] Normal Bilirubin,total 0.4 mg/dL 0.2-1.0 mg /dL [facility]: 830 [facility] Normal Bilirubin,direct < 0.1 mg/dL 0.0-0.2 mg/dL [facility]: 830 [facility] Normal Total Protein 8.0 gm/dL 6.4-8.2 gm/d L [facility]: 830 [facility] Normal Albumin 4.4 gm/dL 3.2-5.2 gm/dL [facility]: 830 [facility] Normal Albumin/globulin Ratio 1.2 1.2-2. 2 [facility]: 830 [facility] 05/15/2020 BMP, Serum or Plasma Normal Glucose, Fastin g 99 mg/dL 70-100 mg/dL [facility]: 83 0 [facility] High Blood Urea Nitrogen 125 mg/dL 7-18 m g/dL [facility]: 0 [facility] Panic High Creatinine for GFR 13.40 mg/dL 0 .55-1.30 mg/dL [facility]: 0 [facility] Low Glomerular Filtration Rate 2.9 >3 9 [facility]: 830 [facility] Low Sodium Level 127 mEq/L 136-145 mEq/L [facility]: 0 [facility] Panic High Potassium Serum 8.1 mEq/L 3.5-5. 1 mEq/L [facility]: 0 [facility] Normal Chloride Level 101 mEq/L 98-107 mEq/ L [facility]: 0 [facility] Low Carbon Dioxide Level 11 mEq/L 21-32 mEq/L [facility]: 0 [facility] Normal Anion Gap 15 mEq/L 8-16 mEq/L [facility]: 0 [facility] Low Calcium Level 8.7 mg/dL 8.8-10.2 mg/ dL [facility]: 0 [facility] 05/15/2020 Ethanol, Blood Normal Ethyl Alcohol (Ethano l) < 0.003 % 0.000- 0.010 % [facility]: 83 0 [facility] 05/15/2020 Salicylate, Quantitative, Serum Low Salicylate Level < 1.7 mg/dL 5.0-30.0 mg/dL [facility] nter: 0 [facility] 05/15/2020 Acetaminophen, Serum Low Acetaminophen L evel < 2.0 ug/mL 10.0- 30.0 ug/mL [facility]: 83 0 [facility] 05/15/2020 TSH, Serum or Plasma Normal Thyroid Stimulating Hormone 0.937 uIU/mL 0.358-3.740 uIU/mL [facility] nter: [address] [place] [address] 05/15/2020 CBC W/ Auto Diff Normal White Blood Count 7.6 10 4.0-10.0 10 [facility]: [address] [place] [address] Low Red Blood Count 3.56 10 4.00-5.40 10 [facility]: [address] [place] [address] Low Hemoglobin 10.3 g/dL 12.0-15.5 g/dL [facility]: [address] [place] [address] Low Hematocrit 32.8 % 36.0-47.0 % [facility]: [address] [place] [address] Normal Mean Corpuscular Volume 92.1 fL 80.0 -96.0 fL [facility]: [address] [place] [address] Normal Mean Corpuscular Hemoglobin 28.9 pg 27.0-33.0 pg [facility]: [address] [place] [address] Low Mean Corpuscular HGB Conc 31.4 g/dL 32.0-36.5 g/dL [facility]: [address] [place] [address] Normal Red Cell Distribution Width 13.7 % 1 1.5-14.5 % [facility]: [address] [place] [address] Normal Platelet Count, Automated 251 10 150 -450 10 [facility]: 0 [facility] Normal Neutrophils % 57.0 % 36.0-66.0 % [facility]: 830 [facility] Normal Lymph % 31.1 % 24.0-44.0 % [facility]: 0 [facility] High Pinal % 11.0 % 0.0-5.0 % [facility]: 0 [facility] Normal Eos % 0.0 % 0.0-3.0 % [facility]: 0 [facility] Normal Baso % 0.4 % 0.0-1.0 % [facility]: 830 [facility] Normal Immature Granulocyte % 0.5 % 0-3.0 % [facility]: 830 [facility] Normal Nucleated Red Blood Cell % 0.0 % 0- 0 % [facility]: 830 [facility] Normal Neutrophils # 4.3 10 1.5-8.5 10 [facility]: 830 [facility] Normal Lymph # 2.4 10 1.5-5.0 10 [facility]: 830 [facility] Normal Pinal # 0.8 10 0.0-0.8 10 [facility]: 830 [facility] Normal Eos # 0.0 10 0.0-0.5 10 [facility]: 830 [facility] Normal Baso # 0.0 10 0.0-0.2 10 [facility]: 830 [facility] 05/15/2020 BMP, Serum or Plasma High Glucose, Fastin g 109 mg/dL 70-100 mg/dL [facility]: 83 0 [facility] High Blood Urea Nitrogen 128 mg/dL 7-18 m g/dL [facility]: 0 [facility] Panic High Creatinine for GFR 13.30 mg/dL 0 .55-1.30 mg/dL [facility]: 0 [facility] Low Glomerular Filtration Rate 2.9 >3 9 [facility]: 830 [facility] Low Sodium Level 132 mEq/L 136-145 mEq/L [facility]: 830 [facility] Panic High Potassium Serum 6.1 mEq/L 3.5-5. 1 mEq/L [facility]: 830 [facility] Normal Chloride Level 102 mEq/L 98-107 mEq/ L [facility]: 830 [facility] Low Carbon Dioxide Level 14 mEq/L 21-32 mEq/L [facility]: 830 [facility] Normal Anion Gap 16 mEq/L 8-16 mEq/L [facility]: 830 [facility] Normal Calcium Level 8.8 mg/dL 8.8-10.2 mg/ dL [facility]: 0 [facility] 11/28/2019 BMP, Serum or Plasma Normal Glucose, Fastin g 76 mg/dL 70-100 mg/dL [facility]: 83 0 [facility] D Blood Urea Nitrogen 15 mg/dL 7-18 mg /dL [facility]: 830 [facility] Normal Creatinine for GFR 1.05 mg/dL 0.55-1 .30 mg/dL [facility]: [address] [place] [address] Normal Glomerular Filtration Rate 54.8 >3 9 [facility]: 0 [facility] Normal Sodium Level 143 mEq/L 136-145 mEq/L [facility]: [address] [place] [address] High Potassium Serum 5.5 mEq/L 3.5-5.1 mE q/L [facility]: 0 [facility] High Chloride Level 120 mEq/L 98-107 mEq/ L [facility]: 0 [facility] Normal Carbon Dioxide Level 22 mmol/L 20-29 mmol/L [facility]: 0 [facility] Low Anion Gap 1 mEq/L 8-16 mEq/L [facility]: [address] [place] [address] Low Calcium Level 8.3 mg/dL 8.8-10.2 mg/ dL [facility]: 830 [facility] Past Encounters 11/24/2020 Hand Pain; Depressive Disorder; Hypertensive Disorder José Ayala MD: [address] [place] [address], Ph. 06/22/2020 Acute Injury of Kidney; Chronic Kidney Disease Stage 3 An Pack PA-C: [address] [facility], [facility] [address] [address], Ph. 04/08/2020 Major Depressive Disorder; Desire for Urination; Chronic Kidney Disease Stage 3; Hypertensive Renal Disease; Hypertensive Disorder; Mixed Hyperlipidemia LEX SolanoC: [address] , [facility] [address], [place] [address], Ph. 02/26/2020 Mixed Anxiety and Depressive Disorder; Chronic Kidney Disease Stage 3; Colostomy Present; Heartburn; Hypertensive Renal Disease; Nausea [place] LORNE Felipe-C: [address], [place] [address], Ph. Social History Tobacco Smoking Status Former Smoker Vaccine List None recorded. Plan of Care Patient Instructions Continue per your reconditioning associate, patient advised to bring med list in next week for input into her chart. Reminders Provider Appointments None recorded. Lab None recorded. Referral None recorded. Procedures None recorded. Surgeries None recorded. Imaging None recorded. Vitals 11/24/2020 11:20AM MEDICARE ANNUAL WELLNESS Height Weight BMI Blood Pressure 60 in 144 lbs 16 oz 28.3 kg/m2 152/87 mm[Hg] 06/22/2020 01:10PM TELEHEALTH 20 Height 60 in 04/08/2020 02:10PM TELEHEALTH 20 Height 60 in 02/26/2020 02:00PM ESTABLISHED [id number] Height Weight BMI Blood Pressure 60 in 129 lbs 6.4 oz 25.3 kg/m2 150/74 mm[Hg ] 01/27/2020 Height Weight BMI Blood Pressure 60 in 124 lbs 6.4 oz 24.38 kg/m2 158/64 mm[Hg ] 01/07/2020 Height Weight BMI Blood Pressure 60 in 123 lbs 6.4 oz 24.19 kg/m2 103/57 mm[Hg ] 12/05/2019 Height Weight BMI Blood Pressure 60 in 135 lbs 8 oz 26.56 kg/m2 134/71 mm[Hg] 10/31/2019 Height Weight BMI Blood Pressure 60 in 146 lbs 8 oz 28.71 kg/m2 128/66 mm[Hg] 09/23/2019 Height Weight BMI Blood Pressure 60 in 156 lbs 4 oz 30.63 kg/m2 149/72 mm[Hg] 09/08/2019 Height Weight BMI Blood Pressure 60 in 156 lbs 2.08 oz 30.60 kg/m2 160/76 mm[H g]
--- OUTSIDE RECORDS SUMMARY | 2021-02-17 22:34 | CCD ---
Author Author [facility] Organization [facility] Address Unknown Phone Unavailable Care Team Providers Care Emergency Department Manager Name Role Phone Maring, Gian PA Unavailable Unavailable Maring, Gian PA Unavailable Unavailable Maring, Gian PA Unavailable Unavailable Maring, Gian PA Unavailable Unavailable Maring, Gian PA Unavailable Unavailable Maring, Gian PA Unavailable Unavailable Maring, Gian PA Unavailable Unavailable Maring, Gian PA Unavailable Unavailable Maring, Gian PA Unavailable Unavailable Maring, Gian PA Unavailable Unavailable Maring, Gian PA Unavailable Unavailable Maring, Gian PA Unavailable Unavailable Maring, Gian PA Unavailable Unavailable Maring, Gian PA Unavailable Unavailable Maring, Gian PA Unavailable Unavailable Maring, Gian PA Unavailable Unavailable Christine Ayala MD Unavailable Unavailable Christine Ayala MD Unavailable Unavailable Christine Ayala MD Unavailable Unavailable Christine Ayala MD Unavailable Unavailable Christine Ayala MD Unavailable Unavailable Christine Ayala MD Unavailable Unavailable Christine Ayala MD Unavailable Unavailable Christine Ayala MD Unavailable Unavailable Christine Ayala MD Unavailable Unavailable Christine Ayala MD Unavailable Unavailable Christine Ayala MD Unavailable Unavailable Christine Ayala MD Unavailable Unavailable Christine Ayala MD Unavailable Unavailable Christine Ayala MD Unavailable Unavailable Christine Ayala MD Unavailable Unavailable Christine Ayala MD Unavailable Unavailable Christine Ayala MD Unavailable Unavailable Christine Ayala MD Unavailable Unavailable Christine Ayala MD Unavailable Unavailable Christine Ayala MD Unavailable Unavailable Christine Ayala MD Unavailable Unavailable Christine Ayala MD Unavailable Unavailable Christine Ayala MD Unavailable Unavailable Christine Ayala MD Unavailable Unavailable Christine Ayala MD Unavailable Unavailable Christine Ayala MD Unavailable Unavailable Christine Ayala MD Unavailable Unavailable Christine Ayala MD Unavailable Unavailable Christine Ayala MD Unavailable Unavailable Christine Ayala MD Unavailable Unavailable Christine Ayala MD Unavailable Unavailable Christine Ayala MD Unavailable Unavailable Christine Ayala MD Unavailable Unavailable Christine Ayala MD Unavailable Unavailable Christine Ayala MD Unavailable Unavailable Christine Ayala MD Unavailable Unavailable Christine Ayala MD Unavailable Unavailable Christine Ayala MD Unavailable Unavailable Christine Ayala MD Unavailable Unavailable Christine Ayala MD Unavailable Unavailable Christine Ayala MD Unavailable Unavailable Christine Ayala MD Unavailable Unavailable Christine Ayala MD Unavailable Unavailable Christine Ayala MD Unavailable Unavailable Christine Ayala MD Unavailable Unavailable Christine Ayala MD Unavailable Unavailable Christine Ayala MD Unavailable Unavailable Christine Ayala MD Unavailable Unavailable Christine Ayala MD Unavailable Unavailable Christine Ayala MD Unavailable Unavailable Christine Ayala MD Unavailable Unavailable Christine Ayala MD Unavailable Unavailable Christine Ayala MD Unavailable Unavailable Christine Ayala MD Unavailable Unavailable Christine Ayala MD Unavailable Unavailable Christine Ayala MD Unavailable Unavailable Christine Ayala MD Unavailable Unavailable Christine Ayala MD Unavailable Unavailable Christine Ayala MD Unavailable Unavailable Christine Ayala MD Unavailable Unavailable Christine Ayala MD Unavailable Unavailable Christine Ayala MD Unavailable Unavailable Christine Ayala MD Unavailable Unavailable Christine Ayala MD Unavailable Unavailable Christine Ayala MD Unavailable Unavailable Christine Ayala MD Unavailable Unavailable Christine Ayala MD Unavailable Unavailable Christine Ayala MD Unavailable Unavailable Christine Ayala MD Unavailable Unavailable Christine Ayala MD Unavailable Unavailable Christine Ayala MD Unavailable Unavailable Christine Ayala MD Unavailable Unavailable Christine Ayala MD Unavailable Unavailable Christine Ayala MD Unavailable Unavailable Christine Ayala MD Unavailable Unavailable Christine Ayala MD Unavailable Unavailable Christine Ayala MD Unavailable Unavailable Christine Ayala MD Unavailable Unavailable Christine Ayala MD Unavailable Unavailable Christine Ayala MD Unavailable Unavailable Christine Ayala MD Unavailable Unavailable Christine Ayala MD Unavailable Unavailable Christine Ayala MD Unavailable Unavailable Christine Ayala MD Unavailable Unavailable Christine Aylaa MD Unavailable Unavailable Christine Ayala MD Unavailable Unavailable Christine Ayala MD Unavailable Unavailable Christine Ayala MD Unavailable Unavailable Ayala, Christine Kumar MD Unavailable Unavailable Ayala, Christine Kumar MD Unavailable Unavailable Ayala, Christine Kumar MD Unavailable Unavailable Ayala, Christine Kumar MD Unavailable Unavailable Ayala, Christine Kumar MD Unavailable Unavailable FELIPE, ASIA PALOMO RPA-C Unavailable Unavailable FELIPE, ASIA PALOMO RPA-C Unavailable Unavailable FELIPE, ASIA PALOMO RPA-C Unavailable Unavailable FELIPE, ASIA PALOMO RPA-C Unavailable Unavailable FELIPE, ASIA PALOMO RPA-C Unavailable Unavailable FELIPE, ASIA PALOMO RPA-C Unavailable Unavailable FELIPE, ASIA PALOMO RPA-C Unavailable Unavailable FELIPE, ASIA PALOMO RPA-C Unavailable Unavailable FELIPE, ASIA PALOMO RPA-C Unavailable Unavailable FELIPE, ASIA PALOMO RPA-C Unavailable Unavailable FELIPE, ASIA PALOMO RPA-C Unavailable Unavailable FELIPE, ASIA PALOMO RPA-C Unavailable Unavailable FELIPE, ASIA PALOMO RPA-C Unavailable Unavailable FELIPE, ASIA PALOMO RPA-C Unavailable Unavailable FELIPE, ASIA PALOMO RPA-C Unavailable Unavailable FELIPE, ASIA PALOMO RPA-C Unavailable Unavailable FELIPE, ASIA PALOMO RPA-C Unavailable Unavailable FELIPE, ASIA PALOMO RPA-C Unavailable Unavailable FELIPE, ASIA PALOMO RPA-C Unavailable Unavailable FELIPE, ASIA PALOMO RPA-C Unavailable Unavailable FELIPE, ASIA PALOMO RPA-C Unavailable Unavailable FELIPE, ASIA PALOMO RPA-C Unavailable Unavailable FELIPE, ASIA PALOMO RPA-C Unavailable Unavailable FELIPE, ASIA PALOMO RPA-C Unavailable Unavailable FELIPE, ASIA PALOMO RPA-C Unavailable Unavailable FELIPE, ASIA PALOMO RPA-C Unavailable Unavailable FELIPE, ASIA PALOMO RPA-C Unavailable Unavailable FELIPE, ASIA PALOMO RPA-C Unavailable Unavailable FELIPE, ASIA PALOMO RPA-C Unavailable Unavailable FELIPE, ASIA PALOMO RPA-C Unavailable Unavailable FELIPE, ASIA PALOMO RPA-C Unavailable Unavailable FELIPE, ASIA PALOMO RPA-C Unavailable Unavailable FELIPE, ASIA PALOMO RPA-C Unavailable Unavailable FELIPE, ASIA PALOMO RPA-C Unavailable Unavailable FELIPE, ASIA PALOMO RPA-C Unavailable Unavailable FELIPE, ASIA PALOMO RPA-C Unavailable Unavailable FELIPE, ASIA PALOMO RPA-C Unavailable Unavailable FELIPE, ASIA PALOMO RPA-C Unavailable Unavailable FELIPE, ASIA PALOMO RPA-C Unavailable Unavailable FELIPE, ASIA PALOMO RPA-C Unavailable Unavailable FELIPE, ASIA PALOMO RPA-C Unavailable Unavailable FELIPE, ASIA PALOMO RPA-C Unavailable Unavailable FELIPE, ASIA PALOMO RPA-C Unavailable Unavailable FELIPE, ASIA PALOMO RPA-C Unavailable Unavailable FELIPE, ASIA PALOMO RPA-C Unavailable Unavailable FELIPE, ASIA PALOMO RPA-C Unavailable Unavailable FELIPE, ASIA PALOMO RPA-C Unavailable Unavailable FELIPE, ASIA PALOMO RPA-C Unavailable Unavailable FELIPE, ASIA PALOMO RPA-C Unavailable Unavailable FELIPE, ASIA PALOMO RPA-C Unavailable Unavailable FELIPE, ASIA PALOMO RPA-C Unavailable Unavailable FELIPE, ASIA PALOMO RPA-C Unavailable Unavailable FELIPE, ASIA PALOMO RPA-C Unavailable Unavailable FELIPE, ASIA PALOMO RPA-C Unavailable Unavailable FELIPE, ASIA PALOMO RPA-C Unavailable Unavailable FELIPE, ASIA PALOMO RPA-C Unavailable Unavailable FELIPE, ASIA PALOMO RPA-C Unavailable Unavailable FELIPE, ASIA PALOMO RPA-C Unavailable Unavailable FELIPE, ASIA PALOMO RPA-C Unavailable Unavailable FELIPE, ASIA PALOMO RPA-C Unavailable Unavailable FELIPE, ASIA PALOMO RPA-C Unavailable Unavailable FELIPE, ASIA PALOMO RPA-C Unavailable Unavailable FELIPE, ASIA PALOMO RPA-C Unavailable Unavailable FELIPE, ASIA PALOMO RPA-C Unavailable Unavailable FELIPE, ASIA PALOMO RPA-C Unavailable Unavailable FELIPE, ASIA PALOMO RPA-C Unavailable Unavailable FELIPE, ASIA PALOMO RPA-C Unavailable Unavailable FELIPE, ASIA PALOMO RPA-C Unavailable Unavailable FELIPE, ASIA PALOMO RPA-C Unavailable Unavailable FELIPE, ASIA PALOMO RPA-C Unavailable Unavailable FELIPE, ASIA PALOMO RPA-C Unavailable Unavailable FELIPE, ASIA PALOMO RPA-C Unavailable Unavailable FELIPE, ASIA PALOMO RPA-C Unavailable Unavailable FELIPE, ASIA PALOMO RPA-C Unavailable Unavailable FELIPE, ASIA PALOMO RPA-C Unavailable Unavailable FELIPE, ASIA PALOMO RPA-C Unavailable Unavailable FELIPE, ASIA PALOMO RPA-C Unavailable Unavailable FELIPE, ASIA PALOMO RPA-C Unavailable Unavailable FELIPE, ASIA PALOMO RPA-C Unavailable Unavailable FELIPE, ASIA PALOMO RPA-C Unavailable Unavailable FELIPE, ASIA PALOMO RPA-C Unavailable Unavailable FELIPE, ASIA PALOMO RPA-C Unavailable Unavailable FELIPE, ASIA PALOMO RPA-C Unavailable Unavailable FELIPE, ASIA PALOMO RPA-C Unavailable Unavailable FELIPE, ASIA PALOMO RPA-C Unavailable Unavailable FELIPE, ASIA PALOMO RPA-C Unavailable Unavailable Korin ARRIETA MD Unavailable Unavailable Korin ARRIETA MD Unavailable Unavailable Korin ARRIETA MD Unavailable Unavailable Korin ARRIETA MD Unavailable Unavailable Korin ARRIETA MD Unavailable Unavailable Korin ARRIETA MD Unavailable Unavailable Korin ARRIETA MD Unavailable Unavailable Korin ARRIETA MD Unavailable Unavailable Korin ARRIETA MD Unavailable Unavailable Korin ARRIETA MD Unavailable Unavailable Korin ARRIETA MD Unavailable Unavailable Korin ARRIETA MD Unavailable Unavailable Korin ARRIETA MD Unavailable Unavailable Korin ARRIETA MD Unavailable Unavailable Korin ARRIETA MD Unavailable Unavailable Korin ARRIETA MD Unavailable Unavailable Korin ARRIETA MD Unavailable Unavailable Korin ARRIETA MD Unavailable Unavailable Korin ARRIETA MD Unavailable Unavailable Korin ARRIETA MD Unavailable Unavailable Korin ARRIETA MD Unavailable Unavailable Korin ARRIETA MD Unavailable Unavailable Korin ARRIETA MD Unavailable Unavailable Korin ARRIETA MD Unavailable Unavailable ALEXANDRA GARVIN MD Unavailable Unavailable ALEXANDRA GARVIN MD Unavailable Unavailable ALEXANDRA GARVIN MD Unavailable Unavailable ALEXANDRA GARVIN MD Unavailable Unavailable ALEXANDRA GARVIN MD Unavailable Unavailable ALEXANDRA GARVIN MD Unavailable Unavailable ALEXANDRA GARVIN MD Unavailable Unavailable ALEXANDRA GARVIN MD Unavailable Unavailable ALEXANDRA GARVIN MD Unavailable Unavailable ALEXANDRA GARVIN MD Unavailable Unavailable ALEXANDRA GARVIN MD Unavailable Unavailable ALEXANDRA GARVIN MD Unavailable Unavailable ALEXANDRA GARVIN MD Unavailable Unavailable ALEXANDRA GARVIN MD Unavailable Unavailable ALEXANDRA GARVIN MD Unavailable Unavailable ALEXANDRA GARVIN MD Unavailable Unavailable ALEXANDRA GARVIN MD Unavailable Unavailable ALEXANDRA GARVIN MD Unavailable Unavailable ALEXANDRA GARVIN MD Unavailable Unavailable ALEXANDRA GARVIN MD Unavailable Unavailable ALEXANDRA GARVIN MD Unavailable Unavailable ALEXANDRA GARVIN MD Unavailable Unavailable ALEXANDRA GARVIN MD Unavailable Unavailable ALEXANDRA GARVIN MD Unavailable Unavailable ALEXANDRA GARVIN MD Unavailable Unavailable ALEXANDRA GARVIN MD Unavailable Unavailable ALEXANDRA GARVIN MD Unavailable Unavailable ALEXANDRA GARVIN MD Unavailable Unavailable VIRGIE, ALEXANDRA CHRISTENSEN Unavailable Unavailable VIRGIE, ALEXANDRA CHRISTENSEN Unavailable Unavailable VIRGIE, ALEXANDRA CHRISTENSEN Unavailable Unavailable VIRGIE, ALEXANDRA CHRISTENSEN Unavailable Unavailable VIRGIE, ALEXANDRA CHRISTENSEN Unavailable Unavailable VIRGIE, ALEXANDRA CHRISTENSEN Unavailable Unavailable VIRGIE, ALEXANDRA CHRISTENSEN Unavailable Unavailable VIRGIE, ALEXANDRA CHRISTENSEN Unavailable Unavailable VIRGIE, ALEXANDRA CHRISTENSEN Unavailable Unavailable VIRGIE, ALEXANDRA CHRISTENSEN Unavailable Unavailable VIRGIE, ALEXANDRA CHRISTENSEN Unavailable Unavailable VIRGIE, ALEXANDRA CHRISTENSEN Unavailable Unavailable VIRGIE, ALEXANDRA CHRISTENSEN Unavailable Unavailable VIRGIE, ALEXANDRA CHRISTENSEN Unavailable Unavailable VIRGIE, ALEXANDRA CHRISTENSEN Unavailable Unavailable VIRGIE, ALEXANDRA CHRISTENSEN Unavailable Unavailable VIRGIE, ALEXANDRA CHRISTENSEN Unavailable Unavailable VIRGIE, ALEXANDRA CHRISTENSEN Unavailable Unavailable VIRGIE, ALEXANDRA CHRISTENSEN Unavailable Unavailable VIRGIE, ALEXANDRA CHRISTENSEN Unavailable Unavailable VIRGIE, ALEXANDRA CHRISTENSEN Unavailable Unavailable VIRGIE, ALEXANDRA CHRISTENSEN Unavailable Unavailable VIRGIE, ALEXANDRA CHRISTENSEN Unavailable Unavailable VIRGIE, ALEXANDRA CHRISTENSEN Unavailable Unavailable VIRGIE, ALEXANDRA CHRISTENSEN Unavailable Unavailable VIRGIE, ALEXANDRA CHRISTENSEN Unavailable Unavailable VIRGIE, ALEXANDRA CRHISTENSEN Unavailable Unavailable FELIPE, ASIA PALOMO RPA-C Unavailable Unavailable FELIPE, ASIA PALOMO RPA-C Unavailable Unavailable FELIPE, ASIA PALOMO RPA-C Unavailable Unavailable FELIPE, ASIA PALOMO RPA-C Unavailable Unavailable FELIPE, ASIA PALOMO RPA-C Unavailable Unavailable FELIPE, ASIA PALOMO RPA-C Unavailable Unavailable FELIPE, ASIA PALOMO RPA-C Unavailable Unavailable FELIPE, ASIA PALOMO RPA-C Unavailable Unavailable FELIPE, ASIA PALOMO RPA-C Unavailable Unavailable FELIPE, ASIA PALOMO RPA-C Unavailable Unavailable FELIPE, ASIA PALOMO RPA-C Unavailable Unavailable FELIPE, ASIA PALOMO RPA-C Unavailable Unavailable FELIPE, ASIA PALOMO RPA-C Unavailable Unavailable FELIPE, ASIA PALOMO RPA-C Unavailable Unavailable FELIPE, ASIA PALOMO RPA-C Unavailable Unavailable FELIPE, ASIA PALOMO RPA-C Unavailable Unavailable FELIPE, ASIA PALOMO RPA-C Unavailable Unavailable FELIPE, ASIA PALOMO RPA-C Unavailable Unavailable FELIPE, ASIA PALOMO RPA-C Unavailable Unavailable FELIPE, ASIA PALOMO RPA-C Unavailable Unavailable FELIPE, ASIA PALOMO RPA-C Unavailable Unavailable FELIPE, ASIA PALOMO RPA-C Unavailable Unavailable FELIPE, ASIA PALOMO RPA-C Unavailable Unavailable FELIPE, ASIA PALOMO RPA-C Unavailable Unavailable FELIPE, ASIA PALOMO RPA-C Unavailable Unavailable FELIPE, ASIA PALOMO RPA-C Unavailable Unavailable FELIPE, ASIA PALOMO RPA-C Unavailable Unavailable FELIPE, ASIA PALOMO RPA-C Unavailable Unavailable FELIPE, ASIA PALOMO RPA-C Unavailable Unavailable FELIPE, ASIA PALOMO RPA-C Unavailable Unavailable FELIPE, ASIA PALOMO RPA-C Unavailable Unavailable FELIPE, ASIA PALOMO RPA-C Unavailable Unavailable FELIPE, ASIA PALOMO RPA-C Unavailable Unavailable FELIPE, ASIA PALOMO RPA-C Unavailable Unavailable FELIPE, ASIA PALOMO RPA-C Unavailable Unavailable FELIPE, ASIA PALOMO RPA-C Unavailable Unavailable FELIPE, ASIA PALOMO RPA-C Unavailable Unavailable FELIPE, ASIA PALOMO RPA-C Unavailable Unavailable FELIPE, ASIA PALOMO RPA-C Unavailable Unavailable FELIPE, ASIA PALOMO RPA-C Unavailable Unavailable FELIPE, ASIA PALOMO RPA-C Unavailable Unavailable FELIPE, ASIA PALOMO RPA-C Unavailable Unavailable FELIPE, ASIA PALOMO RPA-C Unavailable Unavailable THAKKAR, G EDWARD RPA Unavailable Unavailable THAKKAR, G EDWARD RPA Unavailable Unavailable THAKKAR, G EDWARD RPA Unavailable Unavailable THAKKAR, G EDWARD RPA Unavailable Unavailable THAKKAR, G EDWARD RPA Unavailable Unavailable THAKKAR, G EDWARD RPA Unavailable Unavailable THAKKAR, G EDWARD RPA Unavailable Unavailable THAKKAR, G EDWARD RPA Unavailable Unavailable THAKKAR, G EDWARD RPA Unavailable Unavailable THAKKAR, G EDWARD RPA Unavailable Unavailable THAKKAR, G EDWARD RPA Unavailable Unavailable THAKKAR, G EDWARD RPA Unavailable Unavailable THAKKAR, G EDWARD RPA Unavailable Unavailable THAKKAR, G EDWARD RPA Unavailable Unavailable THAKKAR, G EDWARD RPA Unavailable Unavailable THAKKAR, G EDWARD RPA Unavailable Unavailable THAKKAR, G EDWARD RPA Unavailable Unavailable THAKKAR, G EDWARD RPA Unavailable Unavailable THAKKAR, G EDWARD RPA Unavailable Unavailable THAKKAR, G EDWARD RPA Unavailable Unavailable THAKKAR, G EDWARD RPA Unavailable Unavailable THAKKAR, G EDWARD RPA Unavailable Unavailable THAKKAR, G EDWARD RPA Unavailable Unavailable THAKKAR, G EDWARD RPA Unavailable Unavailable THAKKAR, G EDWARD RPA Unavailable Unavailable THAKKAR, G EDWARD RPA Unavailable Unavailable THAKKAR, G EDWARD RPA Unavailable Unavailable THAKKAR, G EDWARD RPA Unavailable Unavailable THAKKAR, G EDWARD RPA Unavailable Unavailable THAKKAR, G EDWARD RPA Unavailable Unavailable THAKKAR, G EDWARD RPA Unavailable Unavailable THAKKAR, G EDWARD RPA Unavailable Unavailable THAKKAR, G EDWARD RPA Unavailable Unavailable THAKKAR, G EDWARD RPA Unavailable Unavailable THAKKAR, G EDWARD RPA Unavailable Unavailable Scordo, M An PA Unavailable Unavailable Scordo, M An PA Unavailable Unavailable Scordo, M An PA Unavailable Unavailable Scordo, M An PA Unavailable Unavailable Scordo, M An PA Unavailable Unavailable Scordo, M An PA Unavailable Unavailable Scordo, M An PA Unavailable Unavailable Scordo, M An PA Unavailable Unavailable Scordo, M An PA Unavailable Unavailable Scordo, M An PA Unavailable Unavailable Scordo, M An PA Unavailable Unavailable Scordo, M An PA Unavailable Unavailable Scordo, M An PA Unavailable Unavailable Scordo, M An PA Unavailable Unavailable Scordo, M An PA Unavailable Unavailable Scordo, M An PA Unavailable Unavailable Scordo, M An PA Unavailable Unavailable Scordo, M An PA Unavailable Unavailable Scordo, M An PA Unavailable Unavailable Scordo, M An PA Unavailable Unavailable Scordo, M An PA Unavailable Unavailable Scordo, M An PA Unavailable Unavailable Scordo, M An PA Unavailable Unavailable Scordo, M An PA Unavailable Unavailable Scordo, M An PA Unavailable Unavailable Scordo, M An PA Unavailable Unavailable Scordo, M An PA Unavailable Unavailable Scordo, M An PA Unavailable Unavailable Scordo, M An PA Unavailable Unavailable Scordo, M An PA Unavailable Unavailable Scordo, M An PA Unavailable Unavailable Scordo, M An PA Unavailable Unavailable Scordo, M An PA Unavailable Unavailable Scordo, M An PA Unavailable Unavailable Scordo, M An PA Unavailable Unavailable Scordo, M An PA Unavailable Unavailable Scordo, M An PA Unavailable Unavailable Scordo, M An PA Unavailable Unavailable Scordo, M An PA Unavailable Unavailable Scordo, M An PA Unavailable Unavailable Scordo, M An PA Unavailable Unavailable Scordo, M An PA Unavailable Unavailable Scordo, M An PA Unavailable Unavailable Scordo, M An PA Unavailable Unavailable Scordo, M An PA Unavailable Unavailable Scordo, M An PA Unavailable Unavailable Scordo, M An PA Unavailable Unavailable HAYLIE, L DESI MD Unavailable Unavailable HAYLIE, L DESI MD Unavailable Unavailable HAYLIE, L DESI MD Unavailable Unavailable HAYLIE, L DESI MD Unavailable Unavailable HAYLIE, L DESI MD Unavailable Unavailable HAYLIE, L DESI MD Unavailable Unavailable HAYLIE, L DESI MD Unavailable Unavailable HAYLIE, L DESI MD Unavailable Unavailable HAYLIE, L DESI MD Unavailable Unavailable HAYLIE, L DESI MD Unavailable Unavailable HAYLIE, L DESI MD Unavailable Unavailable HAYLIE, L DESI MD Unavailable Unavailable HAYLIE, L DESI MD Unavailable Unavailable HAYLIE, L DESI MD Unavailable Unavailable HAYLIE, L DESI MD Unavailable Unavailable HAYLIE, L DESI MD Unavailable Unavailable HAYLIE, L DESI MD Unavailable Unavailable HAYLIE, L DESI MD Unavailable Unavailable HAYLIE, L DESI MD Unavailable Unavailable HAYLIE, L DESI MD Unavailable Unavailable Re-disclosure Warning The records that you are about to access may contain information from federally-assisted alcohol or drug abuse programs. If such information is present, then the following federally mandated warning applies: This information has been disclosed to you from records protected by federal confidentiality rules (42 CFR part 2). The federal rules prohibit you from making any further disclosure of this information unless further disclosure is expressly permitted by the written consent of the person to whom it pertains or as otherwise permitted by 42 CFR part 2. A general authorization for the release of medical or other information is NOT sufficient for this purpose. The Federal rules restrict any use of the information to criminally investigate or prosecute any alcohol or drug abuse patient.The records that you are about to access may contain highly sensitive health information, the redisclosure of which is protected by Article 27-F of the [facility] Public Health law. If you continue you may have access to information: Regarding HIV / AIDS; Provided by facilities licensed or operated by the [facility] Office of Mental Health; or Provided by the [facility] Office for People With Developmental Disabilities. If such information is present, then the following [facility] mandated warning applies: This information has been disclosed to you from confidential records which are protected by state law. State law prohibits you from making any further disclosure of this information without the specific written consent of the person to whom it pertains, or as otherwise permitted by law. Any unauthorized further disclosure in violation of state law may result in a fine or prison sentence or both. A general authorization for the release of medical or other information is NOT sufficient authorization for further disc losure. Allergies and Adverse Reactions Type Description Substance Reaction Status Data Source(s ) Allergy to substance Allergy to substance Allergy to substance ROXANNE ([facility]) Allergy to substance Allergy to substance Allergy to substance LEHIGH ACRES ([facility]) Family History Family Member Name Family Member Gender Family Member Status Date o f Status Description Data Source(s) Unknown Male Condition [facility] Unknown Unknown Problem MEDENT ([facility]) Unknown Unknown Problem [facility] Encounters Encounter Providers Location Date Indications Data Source(s ) Outpatient Attender: ALEXANDRA GARVIN MD [email or web address] 12:00:00 AM EDT - 02/16/2021 09:04:29 AM EDT [facility] Outpatient Attender: RANJIT ARRIETA MD 01/14 01:43:09 PM EDT - 01/14/2021 03:29:26 PM EDT [facility] ([facility] ) Outpatient Attender: PHONG THAKKAR RPA 01/09 08:16:50 AM EDT - 01/09/2021 08:36:09 AM EDT [facility] ([facility] ) Outpatient Attender: Gian PAZ 01/07/20 09:44:32 AM EDT - 01/06/2021 09:57:37 AM EDT [facility] ([facility] ) José Ayala MD: [address] [place] [address], Ph. Attender: José Ayala MD [facility] 11/24/2020 12:00:00 AM EDT ROXANNE ([facility]) An Pack PA-C: [address], [place] [address], Ph. Attender: An PAZ [facility] 06/22/2020 12:00:00 AM EST ROXANNE ([facility]) TASIA ShannonC: [address], [place] [address], Ph. Attender: An PAZ [facility] 06/22/2020 12:00:00 AM EST [facility]OX[facility]NE ([facility]) Outpatient Referrer: ALEXANDRA [email or web address] 12:00:00 AM EST - 05/17/2020 08:48:52 AM EST [facility] Palomo Felipe RPA-C: [address], [place] [address], Ph. Attender: PALOMO BURNETTC [facility] Medical 04/08/2020 12:00:00 AM EST [facility] ([facility]) Palomo Felipe RPA-C: [address], [place] [address], Ph. Attender: PALOMO BURNETTC [facility] Medical 04/08/2020 12:00:00 AM EST [facility] ([facility]) Palomo Felipe RPA-C: [address], [place] [address], Ph. Attender: PALOMO BURNETTC [facility] Medical 04/08/2020 12:00:00 AM EST ROX[facility]NE ([facility]) Outpatient Attender: ALEXANDRA KINGPANCHO 12:00:00 AM EST - 03/26/2020 10:37:54 AM EST [facility] Palomo Felipe RPA-C: [address], [place] [address], Ph. Attender: PALOMO FELIPE RPA-C [facility] Medical 02/26/2020 12:00:00 AM EDT [place] ([facility]) Palomo Felipe RPA-C: [address], [place] [address], Ph. Attender: PALOMO FELIPE RPA-C [facility] Medical 02/26/2020 12:00:00 AM EDT [place] ([facility]) Palomo Felipe RPA-C: [address], [place] [address], Ph. Attender: PALOMO FELIPE RPA-C [facility] Medical 02/26/2020 12:00:00 AM EDT [place] ([facility]) Palomo Felipe RPA-C: [address], [place] [address], Ph. Attender: PALOMO FELIPE RPA-C [facility] Medical 02/26/2020 12:00:00 AM EDT [place] ([facility]) Outpatient Attender: PALOMO FELIPE RPA-C [facility] 02/11/2020 01:13:02 PM EDT [facility] Outpatient Attender: PALOMO FELIPE RPA-C [facility] 02/05/2020 02:14:01 PM EDT [facility] Outpatient Attender: ALEXANDRA GARVIN MD [facility] 01/30/2020 12:00:00 AM EDT [facility] Outpatient Attender: PALOMO FELIPE RPA-C [facility] 01/13/2020 10:15:04 AM EDT [facility] Outpatient Attender: PALOMO FELIPE RPA-C [facility] 01/13/2020 10:15:01 AM EDT [facility] Outpatient Attender: PALOMO FELIPE RPA-C [facility] 01/13/2020 10:14:02 AM EDT [facility] Outpatient Attender: PALOMO VARUN ALBA JC 01/09/2020 09:45:03 AM EDT [facility] Outpatient Attender: PALOMO VARUN ALBA [facility] 01/08/2020 05:05:59 PM EDT [facility] Outpatient Attender: PALOMO VARUN ALBA JC 01/07/2020 02:38:01 PM EDT [facility] Emergency Attender: DESI STALLINGS MDConsultant: PALOMO VARUN ALBA 12/25/2019 01:46:00 PM EDT - 12/25/2019 07:27:00 PM EDT [facility] Patient discharged. Immunizations Vaccine Date Status Description Data Source(s) COVID-19 VACCINE Kevin 08/07/2020 12:00:00 AM EDT completed [employer]SIIS Vaccine Series Complete: YESThis Data wa s Submitted to [facility] Via [employer]. Medications Medication Brand Name Start Date Product Form Dose Route Admi nistrative Instructions Pharmacy Instructions Status Indications Reaction Description Data Source(s) 60 mcg (15 mcg x 4)/0.5 mL 02/01/2021 12:00:00 AM EDT syring e 0 DIRECTED IN THE LEFT ARM DIRECTED IN THE LEFT ARM SOLD: 02/01/2021 [facility] apixaban 5 MG Oral Tablet [Eliquis] Eliquis 5 MG TABS tablet Eliquis 5 MG TABS tablet 08/30/2020 12:00:00 AM EDT activ e Paroxysmal atrial fibrillation TAKE ONE TABLET BY MOUTH TWICE DAILY [facility] Paroxysmal atrial fibrillation Magnesium Oxide 400 MG Oral Tablet magnesium oxide (MA G-OX) 400 MG tablet magnesium oxide (MAG-OX) 400 MG tablet 06/13/2020 12:00:00 AM EST 1 {tbl} Oral aborted Take 1 tablet by kristin th daily [facility] Escitalopram 5 MG Oral Tablet escitalopram (LEXAPRO) 5 MG tablet escitalopram (LEXAPRO) 5 MG tablet 02/26/2020 12:00:00 AM EDT 5 mg Oral active Take 5 mg by mouth daily [facility] Lisinopril 10 MG Oral Tablet lisinopril (PRINIVIL,ZEST RIL) 10 MG tablet lisinopril (PRINIVIL,ZESTRIL) 10 MG tablet 01/30/2020 12:00:00 AM EDT 10 mg Oral aborted Hypertension, unspecified type Take 1 tablet (10 mg total) by mouth 2 (two) times a day [facility] Hypertension, unspecified type apixaban 5 MG Oral Tablet Apixaban (ELIQUIS) 5 MG TABS tablet Apixaban (ELIQUIS) 5 MG TABS tablet 01/30/2020 12:00:00 AM EDT 5 mg Oral active Paroxysmal atrial fibrillation Take 1 tablet (5 mg total) by mouth 2 (t wo) times a day [facility] Paroxysmal atrial fibrillation Amlodipine 5 MG Oral Tablet amLODIPine (NORVASC) 5 MG tablet amLODIPine (NORVASC) 5 MG tablet 01/28/2020 12:00:00 AM EDT 2.5 mg Oral active Take 2.5 mg by mouth daily [facility] atorvastatin 10 MG Oral Tablet atorvastatin (LIPITOR) 10 MG tablet atorvastatin (LIPITOR) 10 MG tablet 01/28/2020 12:00:00 AM EDT 10 mg Oral active Take 10 mg by mouth daily [facility] pantoprazole 40 MG Delayed Release Oral Tablet pantoprazole (PROTONIX) 40 MG tablet pantoprazole (PROTONIX) 40 MG tablet 01/28/2020 12:00:00 AM EDT 40 mg Oral aborted Take 40 mg by mouth daily [facility] Sodium Bicarbonate 650 MG Oral Tablet sodium bicarbona te 650 MG tablet sodium bicarbonate 650 MG tablet 01/28/2020 12:00:00 AM EDT 650 mg Oral aborted Take 650 mg by mouth 2 (two) times a day [facility] Allopurinol 100 MG Oral Tablet allopurinol (ZYLOPRIM) 100 MG tablet allopurinol (ZYLOPRIM) 100 MG tablet 11/21/2019 12:00:00 AM EDT 100 mg Oral aborted Take 100 mg by mouth daily [facility] Escitalopram 5 MG Oral Tablet escitalopr am 5 mg tablet TAKE ONE TABLET BY MOUTH ONCE DAILY escitalopram 5 mg tablet TAKE ONE TABLET BY MOUTH ONCE DAILY completed escitalopram 5 MG Oral Ta blet [place] ([facility]) Fluoxetine 20 MG Oral Capsule fluoxetine 20 mg capsule fluox etine 20 mg capsule completed fluoxetine 20 MG Oral Capsule [place] ([facility]) Lisinopril 10 MG Oral Tablet lisinopril 10 mg tablet TAKE ONE TABLET BY MOUTH TWICE DAILY lisinopril 10 mg tablet TAKE ONE TABLET BY MOUTH TWICE DAILY completed lisinopril 10 MG Ora l Tablet [place] ([facility]) Amiodarone hydrochloride 200 MG Oral Tab let amiodarone 200 mg tablet 1 tablet per day amiodarone 200 mg tablet 1 tablet per day completed amiodarone hydrochloride 200 MG Oral Tablet [place] ([facility]) Allopurinol 100 MG Oral Tablet allopurinol 100 mg tabl et 1 tablet per day allopurinol 100 mg tablet 1 tablet per day completed allopurinol 100 MG Oral Tablet [place] ([facility]) apixaban 2.5 MG Oral Tablet [Eliquis] Eliquis 2.5 mg t ablet Eliquis 2.5 mg tablet completed apixaban 2.5 MG Oral Tablet [Eliquis] [place] ([facility]) Sodium Bicarbonate 650 MG Oral Tablet so dium bicarbonate 650 mg tablet TAKE ONE TABLET BY MOUTH TWICE DAILY sodium bicarbonate 650 mg tablet TAKE ON E TABLET BY MOUTH TWICE DAILY completed sodium bicarbonate 650 MG Oral Tablet [place] ([facility]) apixaban 2.5 MG Oral Tablet [Eliquis] Eliquis 2.5 mg t ablet Eliquis 2.5 mg tablet completed apixaban 2.5 MG Oral Tablet [Eliquis] [place] ([facility]) Sodium Bicarbonate 650 MG Oral Tablet so dium bicarbonate 650 mg tablet TAKE ONE TABLET BY MOUTH TWICE DAILY sodium bicarbonate 650 mg tablet TAKE ON E TABLET BY MOUTH TWICE DAILY completed sodium bicarbonate 650 MG Oral Tablet [place] ([facility]) Lisinopril 10 MG Oral Tablet lisinopril 10 mg tablet TAKE ONE TABLET BY MOUTH TWICE DAILY lisinopril 10 mg tablet TAKE ONE TABLET BY MOUTH TWICE DAILY completed lisinopril 10 MG Ora l Tablet [place] ([facility] Cephalexin 500 MG Oral Capsule cephalexin 500 mg capsu le 1 tablet per day cephalexin 500 mg capsule 1 tablet per day completed cephalexin 500 MG Oral Capsule [place] ([facility]) Fluoxetine 20 MG Oral Capsule fluoxetine 20 mg capsule fluox etine 20 mg capsule completed fluoxetine 20 MG Oral Capsule [place] ([facility]) Cephalexin 500 MG Oral Capsule cephalexin 500 mg capsu le 1 tablet per day cephalexin 500 mg capsule 1 tablet per day completed cephalexin 500 MG Oral Capsule [place] ([facility]) Omeprazole 20 MG Delayed Release Oral Ca psule omeprazole 20 mg capsule,delayed release 1 tablett per day omeprazole 20 mg capsule,delayed release 1 tablett per day completed omeprazole 20 MG Delayed Release Oral Capsule [place] ([facility]) Ondansetron 4 MG Disintegrating Oral Tab let ondansetron 4 mg disintegrating tablet 1 tablet per day ondansetron 4 mg disintegrating tablet 1 tablet per da y completed ondansetron 4 MG Disintegrating Oral Tablet [place] ([facility]) pantoprazole 40 MG Delayed Release Oral Tablet pantoprazole 40 mg tablet,delayed release TAKE ONE TABLET BY MOUTH ONE-HALF HOUR BEFORE BREAKFAST, COMPLETED TOTAL THREE MONTH COURSE THEN TAPER OFF pantoprazole 40 mg tablet,delayed release TAKE ONE TABLET BY MOUTH ONE-HALF HOUR BEFORE BREAKFAST, COMPLETED TOTAL THREE MONTH COURSE THEN TAPER OFF com pleted pantoprazole 40 MG Delayed Release Oral Tablet [place] ([facility]) Amiodarone hydrochloride 200 MG Oral Tab let amiodarone 200 mg tablet 1 tablet per day amiodarone 200 mg tablet 1 tablet per day completed amiodarone hydrochloride 200 MG Oral Tablet [place] ([facility]) Fluoxetine 40 MG Oral Capsule fluoxetine 40 mg capsule fluox etine 40 mg capsule completed fluoxetine 40 MG Oral Capsule [place] ([facility]) Fluoxetine 20 MG Oral Capsule fluoxetine 20 mg capsule fluox etine 20 mg capsule completed fluoxetine 20 MG Oral Capsule [place] ([facility]) Allopurinol 100 MG Oral Tablet allopurinol 100 mg tabl et 1 tablet per day allopurinol 100 mg tablet 1 tablet per day completed allopurinol 100 MG Oral Tablet [place] ([facility]) Amlodipine 5 MG Oral Tablet amlodipine 5 mg tablet TAKE 1/2 TABLET BY MOUTH ONCE DAILY amlodipine 5 mg tablet TAKE 1/2 TABLET BY MOUTH ONCE DAILY completed amlodipine 5 MG Oral Tablet AT[place] NA ([facility]) Fluoxetine 40 MG Oral Capsule fluoxetine 40 mg capsule fluox etine 40 mg capsule completed fluoxetine 40 MG Oral Capsule [place] ([facility]) Allopurinol 100 MG Oral Tablet allopurinol 100 mg tabl et 1 tablet per day allopurinol 100 mg tablet 1 tablet per day completed allopurinol 100 MG Oral Tablet [place] ([facility]) Ondansetron 4 MG Disintegrating Oral Tab let ondansetron 4 mg disintegrating tablet 1 tablet per day ondansetron 4 mg disintegrating tablet 1 tablet per da y completed ondansetron 4 MG Disintegrating Oral Tablet [place] ([facility]) apixaban 2.5 MG Oral Tablet [Eliquis] Eliquis 2.5 mg t ablet Eliquis 2.5 mg tablet completed apixaban 2.5 MG Oral Tablet [Eliquis] [place] ([facility]) Fluoxetine 40 MG Oral Capsule fluoxetine 40 mg capsule fluox etine 40 mg capsule completed fluoxetine 40 MG Oral Capsule [place] ([facility]) Omeprazole 20 MG Delayed Release Oral Ca psule omeprazole 20 mg capsule,delayed release 1 tablett per day omeprazole 20 mg capsule,delayed release 1 tablett per day completed omeprazole 20 MG Delayed Release Oral Capsule [place] ([facility]) Sodium Bicarbonate 650 MG Oral Tablet so dium bicarbonate 650 mg tablet TAKE ONE TABLET BY MOUTH TWICE DAILY sodium bicarbonate 650 mg tablet TAKE ON E TABLET BY MOUTH TWICE DAILY completed sodium bicarbonate 650 MG Oral Tablet [place] ([facility]) Cephalexin 500 MG Oral Capsule cephalexin 500 mg capsu le 1 tablet per day cephalexin 500 mg capsule 1 tablet per day completed cephalexin 500 MG Oral Capsule [place] ([facility]) Amiodarone hydrochloride 200 MG Oral Tab let amiodarone 200 mg tablet 1 tablet per day amiodarone 200 mg tablet 1 tablet per day completed amiodarone hydrochloride 200 MG Oral Tablet [place] ([facility]) Fluoxetine 40 MG Oral Capsule fluoxetine 40 mg capsule fluox etine 40 mg capsule completed fluoxetine 40 MG Oral Capsule [place] ([facility]) Fluoxetine 20 MG Oral Capsule fluoxetine 20 mg capsule fluox etine 20 mg capsule completed fluoxetine 20 MG Oral Capsule [place] ([facility]) Cephalexin 500 MG Oral Capsule cephalexin 500 mg capsu le 1 tablet per day cephalexin 500 mg capsule 1 tablet per day completed cephalexin 500 MG Oral Capsule [place] ([facility]) Amlodipine 5 MG Oral Tablet amlodipine 5 mg tablet TAKE 1/2 TABLET BY MOUTH ONCE DAILY amlodipine 5 mg tablet TAKE 1/2 TABLET BY MOUTH ONCE DAILY completed amlodipine 5 MG Oral Tablet AT[place] NA ([facility]) pantoprazole 40 MG Delayed Release Oral Tablet pantoprazole 40 mg tablet,delayed release 1 tablet per day pantoprazole 40 mg tablet,delayed releas e 1 tablet per day completed pantoprazole 40 MG Delayed Release Oral Tablet [place] ([facility]) Omeprazole 20 MG Delayed Release Oral Ca psule omeprazole 20 mg capsule,delayed release 1 tablett per day omeprazole 20 mg capsule,delayed release 1 tablett per day completed omeprazole 20 MG Delayed Release Oral Capsule [place] ([facility]) apixaban 2.5 MG Oral Tablet [Eliquis] Eliquis 2.5 mg t ablet Eliquis 2.5 mg tablet completed apixaban 2.5 MG Oral Tablet [Eliquis] [place] ([facility]) Ondansetron 4 MG Disintegrating Oral Tab let ondansetron 4 mg disintegrating tablet 1 tablet per day ondansetron 4 mg disintegrating tablet 1 tablet per da y completed ondansetron 4 MG Disintegrating Oral Tablet [place] ([facility]) Amiodarone hydrochloride 200 MG Oral Tab let amiodarone 200 mg tablet 1 tablet per day amiodarone 200 mg tablet 1 tablet per day completed amiodarone hydrochloride 200 MG Oral Tablet [place] ([facility]) Insurance Providers Payer name Policy type / Coverage type Policy ID Covered alliance party ID Covered alliance party's relationship to del cid Policy Del Cid Plan Information MEDICARE COMPLETE [id number] SP [id number] MEDICARE COMPLETE [id number] SP [id number] MEDICARE COMPLETE [id number] SP [id number] [facility] [id number] SP [id number] [employer] [id number] Self [id number] [facility] [id number] Sarah [id number] [facility] MEDIC[facility] [id number] [facility] emp [id number] Employee [id number] [facility] Commercial [id number] Self [id number] ANSI-Health Maintenance Organization (HM O) [id number] ANSI-Medicare Part B [id number] ANSI-Medicare Part B [id number] [facility]-Health Maintenance Organization ( O) [id number] [employer] Commercial [id number] Self [id number] [employer](To) Commercial [id number] Self [id number] ANSI-Medicare Part B [id number] [facility]-Health Maintenance Organization ( O) [id number] [employer](To) Commercial [id number] Self [id number] [employer] [id number] SP [id number] MEDICARE COMPLETE [id number] SP [id number] ANSI-Medicare Part B [id number] MEDICARE [id number] SP [id number] MEDICARE COMPLETE [id number] SP [id number] ANSI-Medicare Part B [id number] ANSI-Medicare Part B [id number] ANSI-Medicare Part B [id number] ANSI-Medicare Part B [id number] ANSI-Medicare Part B [id number] ANSI-Medicare Part B [id number] ANSI-Medicare Part B [id number] MEDICARE COMPLETE [id number] SP [id number] ANSI-Medicare Part B [id number] ANSI-Medicare Part B [id number] MEDICARE COMPLETE-[facility] O [id number] S [id number] MEDICARE COMPLETE-UHC O [id number] S [id number] [employer]IONS [id number] SP [id number] MEDICARE COMPLETE-UHC O [id number] S [id number] TOD[employer] OPTIONS/MAURITIAN O [id number] S [id number] [employer] OPTIONS [id number] SP [id number] TODAYS OPTIONS/MAURITIAN O [id number] S [id number] [employer]IONS [id number] SP [id number] MEDICARE P [id number] S [id number] [employer] BCBS B [id number] S [id number] TODAYS OPTION -O/P [id number] 18 [id number] [facility] [id number] SP [id number] WELLCARE [id number] SP [id number] MEDICARE BLUE PPO 306 [id number] SP [id number] MEDICARE [id number] SP [id number] WELLCARE -O/P [id number] 18 [id number] MEDICARE JOSE [id number] S [id number] WELLCARE HEA [id number] S [id number] WELLCARE [id number] SP [id number] ANSI-Health Maintenance Organization (HM O) [id number] ANSI-Medicare Part B [id number] Problems, Conditions, and Diagnoses Code Display Name Description Problem Type Effective Dates Data Source(s) R07.2 Precordial pain Precordial pain Diagnosis 02/16/2021 08:2 6:28 AM EDT [facility] I10 Essential (primary) hypertension Essential (primary) h ypertension Diagnosis 02/16/2021 08:26:28 AM EDT [facility] M10.9 Gout, unspecified Gout, unspecified Diagnosis 02/16/2021 08:26:28 AM EDT [facility] K21.9 Gastro-esophageal reflux disease without esophagitis Gastro-esophageal reflux disease without Diagnosis 02/16/2021 08:26:28 AM EDT [facility] I48.0 Paroxysmal atrial fibrillation Paroxysmal atrial fibri llation Diagnosis 02/16/2021 08:26:28 AM EDT [facility] E78.5 Hyperlipidemia, unspecified Hyperlipidemia, unspecifie d Diagnosis 02/16/2021 08:26:28 AM EDT [facility] K8020 Calculus of gallbladder without cholecys titis without obstruction Calculus of gallbladder without cholecystitis without obstruction Diagnosis 12/25/2019 01:46:00 PM EDT [facility] E871 Hypo-osmolality and hyponatremia Hypo-osmolality and hyponatremia Diagnosis 12/25/2019 01:46:00 PM EDT [facility] E876 Hypokalemia Hypokalemia Diagnosis 12/25/2019 01:46:00 PM EDT [facility] N179 Acute kidney failure, unspecified Acute kidney f ailure, unspecified Diagnosis 12/25/2019 01:46:00 PM EDT [facility] R109 Unspecified abdominal pain Unspecified abdominal pain Diagnosis 12/25/2019 01:46:00 PM EDT [facility] [id number] Major depressive disorder Major Depressive Disorder Pr oblem 04/08/2020 12:00:00 AM EST [place] ([facility]) [id number] Major depressive disorder Major Depressive Disorder Pr oblem 04/08/2020 12:00:00 AM EST [place] ([facility]) [id number] Major depressive disorder Major Depressive Disorder Pr oblem 04/08/2020 12:00:00 AM EST [place] ([facility]) R07.2 Precordial pain Precordial pain [id number] 03/26/2020 12:0 0:00 AM EST [facility] K21.9 GERD (gastroesophageal reflux disease) G ERD (gastroesophageal reflux disease) [id number] 01/30/2020 12:00:00 AM EDT [facility] I48.0 Paroxysmal atrial fibrillation Paroxysmal atrial fibri llation [id number] 01/30/2020 12:00:00 AM EDT [facility] M10.9 Gout Gout [id number] 01/30/2020 12:00:00 AM ED T [facility] E78.5 Hyperlipidemia Hyperlipidemia [id number] 01/30/2020 12:00: 00 AM EDT [facility] I10 Hypertension Hypertension [id number] 01/30/2020 12:00:00 A M EDT [facility] Z93.3 Colostomy status Colostomy status 01/08/2020 05 :05:33 PM EDT [facility] 787.02 Nausea Nausea 01/07/2020 02:37:58 PM ED T [facility] [id number] Nausea Nausea Problem 01/07/2020 12:0 0:00 AM EDT - 04/08/2020 12:00:00 AM EST [place] ([facility]) [id number] Nausea Nausea Problem 01/07/2020 12:00:00 AM ED T [place] ([facility]) [id number] Nausea Nausea Problem 01/07/2020 12:0 0:00 AM EDT - 04/08/2020 12:00:00 AM EST [place] ([facility]) [id number] Nausea Nausea Problem 01/07/2020 12:0 0:00 AM EDT - 04/08/2020 12:00:00 AM EST [place] ([facility]) [id number] Colostomy present Colostomy Present Problem 01/04 12:00:00 AM EDT [place] ([facility]) [id number] Colostomy present Colostomy Present Problem 01/04 12:00:00 AM EDT [place] ([facility]) [id number] Colostomy present Colostomy Present Problem 01/04 12:00:00 AM EDT [place] ([facility]) [id number] Colostomy present Colostomy Present Problem 01/04 12:00:00 AM EDT [place] ([facility]) [id number] Procedure by method Procedure by Method Problem 0 09/23/2019 12:00:00 AM EDT - 02/27/2020 12:00:00 AM EDT [place] ([facility]) [id number] Procedure by method Procedure by Method Problem 0 09/23/2019 12:00:00 AM EDT - 02/27/2020 12:00:00 AM EDT [place] ([facility]) [id number] Procedure by method Procedure by Method Problem 0 09/23/2019 12:00:00 AM EDT - 02/27/2020 12:00:00 AM EDT [place] ([facility]) [id number] Procedure by method Procedure by Method Problem 0 09/23/2019 12:00:00 AM EDT - 02/27/2020 12:00:00 AM EDT [place] ([facility]) [id number] Hand pain Hand Pain Problem 09/08/2019 12:0 0:00 AM EDT - 02/26/2020 12:00:00 AM EDT [place] ([facility]) [id number] Hand pain Hand Pain Problem 09/08/2019 12:0 0:00 AM EDT - 02/26/2020 12:00:00 AM EDT [place] ([facility]) [id number] Hand pain Hand Pain Problem 09/08/2019 12:0 0:00 AM EDT - 02/26/2020 12:00:00 AM EDT [place] ([facility]) [id number] Hand pain Hand Pain Problem 09/08/2019 12:0 0:00 AM EDT - 02/26/2020 12:00:00 AM EDT [place] ([facility]) Surgeries/Procedures Procedure Description Date Indications Data Source(s) ECG ROUTINE ECG W/LEAST 12 LDS W/I&R <td>POCT AMB EKG</td><td>Routine</td><td>02/16/2021 9:27 AM EDT</td><td> Paroxysmal atrial fibrillation Hypertension, unspecified type Precordial pain</td><td> </td> 02/16/2021 09:27:00 AM EDT Precord[facility] painHypertension, unspecified typeParoxysmal atrial fibrillation [facility] Precordial pain Hypertension, unspecified type Paroxysmal atrial fibrillation Results ID Date Data Source [id number] 01/12/2021 02:10:00 PM EDT [facility] Name Value Range Interpretation Code Description Data Bridget rce(s) Supporting Document(s) SARS coronavirus 2 RNA [Presence] in Res piratory specimen by SHIMA with probe detection NEGATIVE [facility] This lab was ordered by [facility] a nd reported by [facility]. ID Date Data Source [id number] 05/19/2020 05:46:00 AM EST [facility]) Name Value Range Interpretation Code Description Data Bridget rce(s) Supporting Document(s) glucose, fasting 80 mg/dL 70-100 Glucose, Fasting AT [facility]) blood urea nitrogen 39 mg/dL 7-18 Above high normal Blood Ure a Nitrogen [facility]) creatinine for GFR 1.26 mg/dL 0.55-1.30 Creatinine for GF R [place] ([facility]) glomerular filtration rate >39 [place] r Filtration Rate [place] ([facility]) potassium serum 4.3 mEq/L 3.5-5.1 Potassium Serum ATH NA ([facility] [facility]) sodium level 143 mEq/L 136-145 Sodium Level [place] ([facility]) chloride level 111 mEq/L 98-107 Above high normal Chloride Level [place] ([facility]) carbon dioxide level 28 mEq/L 21-32 Carbon Dioxide Level [facility]) calcium level 8.3 mg/dL 8.8-10.2 Below low normal Calcium Level AT [facility]) anion gap 4 mEq/L 8-16 Below low normal Anion Gap [facility]) ID Date Data Source [id number] 05/19/2020 05:46:00 AM EST [facility]) Name Value Range Interpretation Code Description Data Bridget rce(s) Supporting Document(s) red blood count 2.93 10 4.00-5.40 Below low normal Red Blood Coun t [facility]) white blood count 6.8 10 4.0-10.0 White Blood Count [facility]) hemoglobin 8.5 g/dL 12.0-15.5 Below low normal Hemoglobin [place] ( [facility]) hematocrit 27.5 % 36.0-47.0 Below low normal Hematocrit [place] ( [facility]) mean corpuscular volume 93.9 fL 80.0-96.0 Mean Corpusc ular Volume [place] ([facility]) mean corpuscular hemoglobin 29.0 pg 27.0-33.0 Mean Cor puscular Hemoglobin [place] ([facility]) mean corpuscular HGB conc 30.9 g/dL 32.0-36.5 Below low desi l Mean Corpuscular HGB Conc [place] ([facility]) red cell distribution width 13.2 % 11.5-14.5 Red Cell Distribution Width [place] ([facility]) platelet count, automated 146 10 150-450 Below low desi l Platelet Count, Automated [place] ([facility]) nucleated red blood cell % 0.0 % 0-0 Nucleated Red Blood Cell % [place] ([facility]) ID Date Data Source [id number] 05/19/2020 05:46:00 AM EST [place] ([facility]) Name Value Range Interpretation Code Description Data Bridget rce(s) Supporting Document(s) glucose, fasting 80 mg/dL 70-100 Glucose, Fasting AT [facility] ([facility]) creatinine for GFR 1.26 mg/dL 0.55-1.30 Creatinine for GF R [place] ([facility]) blood urea nitrogen 39 mg/dL 7-18 Above high normal Blood Ure a Nitrogen [place] ([facility]) glomerular filtration rate >39 Glomerula r Filtration Rate [place] ([facility]) potassium serum 4.3 mEq/L 3.5-5.1 Potassium Serum ATHE NA ([facility]) sodium level 143 mEq/L 136-145 Sodium Level [place] (No [facility]) chloride level 111 mEq/L 98-107 Above high normal Chloride Level [place] ([facility]) carbon dioxide level 28 mEq/L 21-32 Carbon Dioxide Level [place] [facility]) anion gap 4 mEq/L 8-16 Below low normal Anion Gap [place] ( [facility]) calcium level 8.3 mg/dL 8.8-10.2 Below low normal Calcium Level AT [facility]) ID Date Data Source [id number] 05/19/2020 05:46:00 AM EST [place] ([facility]) Name Value Range Interpretation Code Description Data Bridget rce(s) Supporting Document(s) white blood count 6.8 10 4.0-10.0 White Blood Count [place] ([facility]) hemoglobin 8.5 g/dL 12.0-15.5 Below low normal Hemoglobin [facility]) red blood count 2.93 10 4.00-5.40 Below low normal Red Blood Coun t [place] ([facility]) hematocrit 27.5 % 36.0-47.0 Below low normal Hematocrit [place] ( [facility]) mean corpuscular hemoglobin 29.0 pg 27.0-33.0 Mean Cor puscular Hemoglobin [place] ([facility]) mean corpuscular volume 93.9 fL 80.0-96.0 Mean Corpusc ular Volume [place] ([facility]) mean corpuscular HGB conc 30.9 g/dL 32.0-36.5 Below low desi l Mean Corpuscular HGB Conc [place] ([facility]) red cell distribution width 13.2 % 11.5-14.5 Red Cell Distribution Width [place] ([facility]) platelet count, automated 146 10 150-450 Below low desi l Platelet Count, Automated [place] ([facility]) nucleated red blood cell % 0.0 % 0-0 Nucleated Red Blood Cell % [place] ([facility]) ID Date Data Source [id number] 05/18/2020 06:03:00 AM EST [facility]) Name Value Range Interpretation Code Description Data Bridget rce(s) Supporting Document(s) glucose, fasting 83 mg/dL 70-100 Glucose, Fasting AT [facility]) blood urea nitrogen 55 mg/dL 7-18 Above high normal Blood Ure a Nitrogen [place] ([facility]) creatinine for GFR 1.54 mg/dL 0.55-1.30 Creatinine for GF R [place] ([facility]) glomerular filtration rate >39 Below low normal Anay merular Filtration Rate [place] ([facility]) sodium level 143 mEq/L 136-145 Sodium Level [place] (No [facility]) potassium serum 4.1 mEq/L 3.5-5.1 Potassium Serum ATH NA ([facility]) chloride level 109 mEq/L 98-107 Above high normal Chloride Level [place] ([facility]) carbon dioxide level 29 mEq/L 21-32 Carbon Dioxide Level [place] ([facility]) anion gap 5 mEq/L 8-16 Below low normal Anion Gap [place] ( [facility]) calcium level 7.7 mg/dL 8.8-10.2 Below low normal Calcium Level AT [facility] ([facility]) ID Date Data Source [id number] 05/18/2020 06:03:00 AM EST [facility]) Name Value Range Interpretation Code Description Data Bridget rce(s) Supporting Document(s) white blood count 5.6 10 4.0-10.0 White Blood Count [place] ([facility]) red blood count 2.95 10 4.00-5.40 Below low normal Red Blood Coun t [place] ([facility]) hemoglobin 8.6 g/dL 12.0-15.5 Below low normal Hemoglobin [place] ( [facility]) mean corpuscular volume 91.9 fL 80.0-96.0 Mean Corpusc ular Volume [place] ([facility]) hematocrit 27.1 % 36.0-47.0 Below low normal Hematocrit [place] ( [facility]) mean corpuscular hemoglobin 29.2 pg 27.0-33.0 Mean Cor puscular Hemoglobin [place] ([facility]) mean corpuscular HGB conc 31.7 g/dL 32.0-36.5 Below low desi l Mean Corpuscular HGB Conc [place] ([facility]) red cell distribution width 13.4 % 11.5-14.5 Red Cell Distribution Width [place] ([facility]) platelet count, automated 163 10 150-450 Platelet C ount, Automated [place] ([facility]) nucleated red blood cell % 0.0 % 0-0 Nucleated Red Blood Cell % [place] ([facility]) ID Date Data Source [id number] 05/18/2020 06:03:00 AM EST [place] ([facility]) Name Value Range Interpretation Code Description Data Bridget rce(s) Supporting Document(s) glucose, fasting 83 mg/dL 70-100 Glucose, Fasting AT [facility]) blood urea nitrogen 55 mg/dL 7-18 Above high normal Blood Ure a Nitrogen [place] ([facility]) creatinine for GFR 1.54 mg/dL 0.55-1.30 Creatinine for GF R [place] ([facility]) glomerular filtration rate >39 Below low normal Anay merular Filtration Rate [place] ([facility]) potassium serum 4.1 mEq/L 3.5-5.1 Potassium Serum ATH NA ([facility]) sodium level 143 mEq/L 136-145 Sodium Level [place] (No [facility]) carbon dioxide level 29 mEq/L 21-32 Carbon Dioxide Level [place] ([facility]) chloride level 109 mEq/L 98-107 Above high normal Chloride Level [place] ([facility]) anion gap 5 mEq/L 8-16 Below low normal Anion Gap [place] ( [facility]) calcium level 7.7 mg/dL 8.8-10.2 Below low normal Calcium Level AT [facility]) ID Date Data Source [id number] 05/18/2020 06:03:00 AM EST [place] ([facility]) Name Value Range Interpretation Code Description Data Bridget rce(s) Supporting Document(s) white blood count 5.6 10 4.0-10.0 White Blood Count [place] ([facility]) red blood count 2.95 10 4.00-5.40 Below low normal Red Blood Coun t [place] ([facility]) hemoglobin 8.6 g/dL 12.0-15.5 Below low normal Hemoglobin [place] ( [facility]) hematocrit 27.1 % 36.0-47.0 Below low normal Hematocrit [place] ( [facility]) mean corpuscular volume 91.9 fL 80.0-96.0 Mean Corpusc ular Volume [place] ([facility]) mean corpuscular hemoglobin 29.2 pg 27.0-33.0 Mean Cor puscular Hemoglobin [place] ([facility]) mean corpuscular HGB conc 31.7 g/dL 32.0-36.5 Below low desi l Mean Corpuscular HGB Conc [place] ([facility]) red cell distribution width 13.4 % 11.5-14.5 Red Cell Distribution Width [place] ([facility]) platelet count, automated 163 10 150-450 Platelet C ount, Automated [place] ([facility]) nucleated red blood cell % 0.0 % 0-0 Nucleated Red Blood Cell % [place] ([facility]) ID Date Data Source [id number] 05/17/2020 04:54:00 AM EST [place] ([facility]) Name Value Range Interpretation Code Description Data Bridget rce(s) Supporting Document(s) cortisol AM 34.8 ug/dL 4.3-22.4 Above high normal Cortisol AM ATHEN A ([facility]) ID Date Data Source [id number] 05/17/2020 04:54:00 AM EST [place] ([facility]) Name Value Range Interpretation Code Description Data Bridget rce(s) Supporting Document(s) ferritin 130 NG/mL 8-252 Ferritin [place] ([facility]) ID Date Data Source [id number] 05/17/2020 04:54:00 AM EST [place] ([facility]) Name Value Range Interpretation Code Description Data Bridget rce(s) Supporting Document(s) vitamin B12 level 295 pg/mL 247-911 Vitamin B12 Level [place] ([facility]) ID Date Data Source [id number] 05/17/2020 04:54:00 AM EST [place] ([facility]) Name Value Range Interpretation Code Description Data Bridget rce(s) Supporting Document(s) iron (fe) 185 ug/dL 50-170 Above high normal Iron (Fe) [place] ([facility]) total iron binding capacity 259 ug/dL 250-450 Total Ir on Binding Capacity [place] ([facility]) percent saturation 71.4 % 13.2-45.0 Above high normal Percent Sa turation [place] ([facility]) ID Date Data Source [id number] 05/17/2020 04:54:00 AM EST [place] ([facility]) Name Value Range Interpretation Code Description Data Bridget rce(s) Supporting Document(s) magnesium level 1.9 mg/dL 1.8-2.4 Magnesium Level ATHE NA ([facility]) ID Date Data Source [id number] 05/17/2020 04:54:00 AM EST [place] ([facility]) Name Value Range Interpretation Code Description Data Bridget rce(s) Supporting Document(s) phosphorus level 6.7 mg/dL 2.5-4.9 Above high normal Phosphorus L kaykay [place] ([facility]) ID Date Data Source [id number] 05/17/2020 04:54:00 AM EST [place] ([facility]) Name Value Range Interpretation Code Description Data Bridget rce(s) Supporting Document(s) glucose, fasting 163 mg/dL 70-100 Above high normal Glucose, Fas ting [place] ([facility]) blood urea nitrogen 79 mg/dL 7-18 Above high normal Blood Ure a Nitrogen [place] ([facility]) creatinine for GFR 3.38 mg/dL 0.55-1.30 Above high normal Creatinine for GFR [place] ([facility]) glomerular filtration rate >39 Below low normal Anay merular Filtration Rate [place] ([facility]) sodium level 140 mEq/L 136-145 Sodium Level [place] (No [facility]) potassium serum 4.1 mEq/L 3.5-5.1 Potassium Serum ATHE NA ([facility]) chloride level 107 mEq/L 98-107 Chloride Level [place] ([facility]) carbon dioxide level 27 mEq/L 21-32 Carbon Dioxide Level [place] ([facility]) anion gap 6 mEq/L 8-16 Below low normal Anion Gap [place] ( [facility]) calcium level 7.5 mg/dL 8.8-10.2 Below low normal Calcium Level AT [facility]) AST/SGOT 5 U/L 7-37 Below low normal AST/SGOT [place] ( [facility]) ALT/SGPT 7 U/L 12-78 Below low normal ALT/SGPT [place] ( [facility]) alkaline phosphatase 54 U/L 45-117 Alkaline Phosph atase [place] ([facility]) total protein 5.0 gm/dL 6.4-8.2 Below low normal Total Protein AT [facility]) bilirubin,total 0.8 mg/dL 0.2-1.0 Bilirubin,total ATHE ([facility]) albumin 2.6 gm/dL 3.2-5.2 Below low normal Albumin [place] ( [facility]) albumin/globulin ratio 1.2-2.2 Below low normal Albumin /globulin Ratio [place] ([facility]) ID Date Data Source [id number] 05/17/2020 04:54:00 AM EST [place] ([facility]) Name Value Range Interpretation Code Description Data Bridget rce(s) Supporting Document(s) white blood count 4.2 10 4.0-10.0 White Blood Count [place] ([facility]) red blood count 2.77 10 4.00-5.40 Below low normal Red Blood Coun t [place] ([facility]) hemoglobin 8.2 g/dL 12.0-15.5 Below low normal Hemoglobin [place] ( [facility]) hematocrit 24.6 % 36.0-47.0 Below low normal Hematocrit [place] ( [facility]) mean corpuscular volume 88.8 fL 80.0-96.0 Mean Corpusc ular Volume [place] ([facility]) mean corpuscular hemoglobin 29.6 pg 27.0-33.0 Mean Cor puscular Hemoglobin [place] ([facility]) mean corpuscular HGB conc 33.3 g/dL 32.0-36.5 Mean Corpu scular HGB Conc [place] ([facility]) red cell distribution width 13.2 % 11.5-14.5 Red Cell Distribution Width [place] ([facility]) platelet count, automated 141 10 150-450 Below low desi l Platelet Count, Automated [place] ([facility]) nucleated red blood cell % 0.0 % 0-0 Nucleated Red Blood Cell % [place] ([facility]) ID Date Data Source [id number] 05/17/2020 04:54:00 AM EST [place] ([facility]) Name Value Range Interpretation Code Description Data Bridget rce(s) Supporting Document(s) cortisol AM 34.8 ug/dL 4.3-22.4 Above high normal Cortisol AM ATHEN A ([facility]) ID Date Data Source [id number] 05/17/2020 04:54:00 AM EST [place] ([facility]) Name Value Range Interpretation Code Description Data Bridget rce(s) Supporting Document(s) ferritin 130 NG/mL 8-252 Ferritin [place] ([facility]) ID Date Data Source [id number] 05/17/2020 04:54:00 AM EST [place] ([facility]) Name Value Range Interpretation Code Description Data Bridget rce(s) Supporting Document(s) vitamin B12 level 295 pg/mL 247-911 Vitamin B12 Level [place] ([facility]) ID Date Data Source [id number] 05/17/2020 04:54:00 AM EST [place] ([facility]) Name Value Range Interpretation Code Description Data Bridget rce(s) Supporting Document(s) iron (fe) 185 ug/dL 50-170 Above high normal Iron (Fe) [place] ([facility]) total iron binding capacity 259 ug/dL 250-450 Total Ir on Binding Capacity [place] ([facility]) percent saturation 71.4 % 13.2-45.0 Above high normal Percent Sa turation [place] ([facility]) ID Date Data Source [id number] 05/17/2020 04:54:00 AM EST [place] ([facility]) Name Value Range Interpretation Code Description Data Bridget rce(s) Supporting Document(s) magnesium level 1.9 mg/dL 1.8-2.4 Magnesium Level ATHBarrington MUNOZ ([facility]) ID Date Data Source [id number] 05/17/2020 04:54:00 AM EST [place] ([facility]) Name Value Range Interpretation Code Description Data Bridget rce(s) Supporting Document(s) phosphorus level 6.7 mg/dL 2.5-4.9 Above high normal Phosphorus L kaykay OLIVEIRA ([facility]) ID Date Data Source [id number] 05/17/2020 04:54:00 AM EST [place] ([facility]) Name Value Range Interpretation Code Description Data Bridget rce(s) Supporting Document(s) glucose, fasting 163 mg/dL 70-100 Above high normal Glucose, Fas ting [place] ([facility]) blood urea nitrogen 79 mg/dL 7-18 Above high normal Blood Ure a Nitrogen [place] ([facility]) creatinine for GFR 3.38 mg/dL 0.55-1.30 Above high normal Creatinine for GFR [place] ([facility]) glomerular filtration rate >39 Below low normal Anay merular Filtration Rate [place] ([facility]) sodium level 140 mEq/L 136-145 Sodium Level [place] ([facility]) potassium serum 4.1 mEq/L 3.5-5.1 Potassium Serum ATHE ([facility]) carbon dioxide level 27 mEq/L 21-32 Carbon Dioxide Level [place] ([facility]) chloride level 107 mEq/L 98-107 Chloride Level [place] ([facility]) calcium level 7.5 mg/dL 8.8-10.2 Below low normal Calcium Level AT [facility] ([facility]) anion gap 6 mEq/L 8-16 Below low normal Anion Gap [place] ( [facility]) AST/SGOT 5 U/L 7-37 Below low normal AST/SGOT [place] ( [facility]) alkaline phosphatase 54 U/L 45-117 Alkaline Phosph atase [place] ([facility]) ALT/SGPT 7 U/L 12-78 Below low normal ALT/SGPT [place] ( [facility]) bilirubin,total 0.8 mg/dL 0.2-1.0 Bilirubin,total ATHE ([facility]) total protein 5.0 gm/dL 6.4-8.2 Below low normal Total Protein AT [facility] ([facility]) albumin 2.6 gm/dL 3.2-5.2 Below low normal Albumin [place] ( [facility]) albumin/globulin ratio 1.2-2.2 Below low normal Albumin /globulin Ratio [place] ([facility]) ID Date Data Source [id number] 05/17/2020 04:54:00 AM EST [place] ([facility]) Name Value Range Interpretation Code Description Data Bridget rce(s) Supporting Document(s) white blood count 4.2 10 4.0-10.0 White Blood Count [place] ([facility]) hemoglobin 8.2 g/dL 12.0-15.5 Below low normal Hemoglobin [place] ( [facility]) red blood count 2.77 10 4.00-5.40 Below low normal Red Blood Coun t [place] ([facility]) hematocrit 24.6 % 36.0-47.0 Below low normal Hematocrit [place] ( [facility]) mean corpuscular hemoglobin 29.6 pg 27.0-33.0 Mean Cor puscular Hemoglobin [place] ([facility]) mean corpuscular volume 88.8 fL 80.0-96.0 Mean Corpusc ular Volume [place] ([facility]) mean corpuscular HGB conc 33.3 g/dL 32.0-36.5 Mean Corpu scular HGB Conc [place] ([facility]) red cell distribution width 13.2 % 11.5-14.5 Red Cell Distribution Width [place] ([facility]) platelet count, automated 141 10 150-450 Below low desi l Platelet Count, Automated [place] ([facility]) nucleated red blood cell % 0.0 % 0-0 Nucleated Red Blood Cell % [place] ([facility]) ID Date Data Source [id number] 05/17/2020 04:53:00 AM EST [place] ([facility]) Name Value Range Interpretation Code Description Data Bridget rce(s) Supporting Document(s) ID Date Data Source [id number] 05/17/2020 04:53:00 AM EST [place] ([facility]) Name Value Range Interpretation Code Description Data Bridget rce(s) Supporting Document(s) appearance, urine clear clear Appearance, Urine [place] ([facility]) color, urine straw yellow Color, Urine [place] (No [facility]) pH,urine 6.0 units 5.0-9.0 pH,urine [place] ([facility]) specific gravity urine auto 1.002-1.035 Specifi c [place] Urine Auto [place] ([facility]) glucose, urine (UA) auto negative negative Glucose, Ur ine (UA) Auto [place] ([facility]) protein, urine auto negative negative Protein, Urine A uto [place] ([facility]) ketone, urine auto negative negative Ketone, Urine Aut o [place] ([facility]) urobilinogen, urine auto 0.2 mg/dL 0.0-2.0 Urobilinoge n, Urine Auto [place] ([facility]) nitrite, urine auto negative negative Nitrite, Urine A uto [place] ([facility]) bilirubin, urine auto negative negative Bilirubin, Uri ne Auto [place] ([facility]) leukocyte esterase, urine auto negative negative Leukocyte Esterase, Urine Auto [place] ([facility]) WBC, urine auto 1 /hpf 0-3 WBC, Urine Auto ATHE NA ([facility]) blood, urine blood negative negative Blood, Urine Bloo d [place] ([facility]) RBC, urine auto 2 /hpf 0-3 RBC, Urine Auto ATHE NA ([facility]) bacteria, urine auto 1+ negative Above high normal Bacteria , Urine Auto [place] ([facility]) squamous epithelial cell ur AU 0 /hpf 0-6 Squam ous Epithelial Cell Ur AU [place] ([facility]) mucus, urine small negative Mucus, Urine [place] (No [facility]) hyaline cast, urine auto 0 /lpf 0-1 Hyaline Brian t, Urine Auto [place] ([facility]) ID Date Data Source [id number] 05/17/2020 04:53:00 AM EST [place] ([facility]) Name Value Range Interpretation Code Description Data Bridget rce(s) Supporting Document(s) ID Date Data Source [id number] 05/17/2020 04:53:00 AM EST [place] ([facility]) Name Value Range Interpretation Code Description Data Bridget rce(s) Supporting Document(s) appearance, urine clear clear Appearance, Urine [place] ([facility]) pH,urine 6.0 units 5.0-9.0 pH,urine [place] ([facility]) color, urine straw yellow Color, Urine [place] (No [facility]) protein, urine auto negative negative Protein, Urine A uto [place] ([facility]) specific gravity urine auto 1.002-1.035 Specifi c [place] Urine Auto [place] ([facility]) glucose, urine (UA) auto negative negative Glucose, Ur ine (UA) Auto [place] ([facility]) urobilinogen, urine auto 0.2 mg/dL 0.0-2.0 Urobilinoge n, Urine Auto [place] ([facility]) ketone, urine auto negative negative Ketone, Urine Aut o [place] ([facility]) nitrite, urine auto negative negative Nitrite, Urine A uto [place] ([facility]) bilirubin, urine auto negative negative Bilirubin, Uri ne Auto [place] ([facility]) leukocyte esterase, urine auto negative negative Leukocyte Esterase, Urine Auto [place] ([facility]) blood, urine blood negative negative Blood, Urine Bloo d [place] ([facility]) WBC, urine auto 1 /hpf 0-3 WBC, Urine Auto ATHE NA ([facility]) bacteria, urine auto 1+ negative Above high normal Bacteria , Urine Auto [place] ([facility]) RBC, urine auto 2 /hpf 0-3 RBC, Urine Auto ATHE NA ([facility]) mucus, urine small negative Mucus, Urine [place] (No [facility]) squamous epithelial cell ur AU 0 /hpf 0-6 Squam ous Epithelial Cell Ur AU [place] ([facility]) hyaline cast, urine auto 0 /lpf 0-1 Hyaline Brian t, Urine Auto [place] ([facility]) ID Date Data Source [id number] 05/16/2020 04:42:00 PM EST [place] ([facility]) Name Value Range Interpretation Code Description Data Bridget rce(s) Supporting Document(s) white blood count 6.2 10 4.0-10.0 White Blood Count [place] ([facility]) red blood count 2.58 10 4.00-5.40 Below low normal Red Blood Coun t [place] ([facility]) hemoglobin 7.4 g/dL 12.0-15.5 Below low normal Hemoglobin [place] ( [facility]) hematocrit 23.3 % 36.0-47.0 Below low normal Hematocrit [place] ( [facility]) mean corpuscular volume 90.3 fL 80.0-96.0 Mean Corpusc ular Volume [place] ([facility]) mean corpuscular hemoglobin 28.7 pg 27.0-33.0 Mean Cor puscular Hemoglobin [place] ([facility]) mean corpuscular HGB conc 31.8 g/dL 32.0-36.5 Below low desi l Mean Corpuscular HGB Conc [place] ([facility]) red cell distribution width 13.7 % 11.5-14.5 Red Cell Distribution Width [place] ([facility]) platelet count, automated 186 10 150-450 Platelet C ount, Automated [place] ([facility]) nucleated red blood cell % 0.0 % 0-0 Nucleated Red Blood Cell % [place] ([facility]) ID Date Data Source [id number] 05/16/2020 04:42:00 PM EST [place] ([facility]) Name Value Range Interpretation Code Description Data Bridget rce(s) Supporting Document(s) glucose, fasting 121 mg/dL 70-100 Above high normal Glucose, Fas ting [place] ([facility]) blood urea nitrogen 91 mg/dL 7-18 Above high normal Blood Ure a Nitrogen [place] ([facility]) creatinine for GFR 6.12 mg/dL 0.55-1.30 Above high normal Creatinine for GFR [place] ([facility]) glomerular filtration rate >39 Below low normal Anay merular Filtration Rate [place] ([facility]) sodium level 140 mEq/L 136-145 Sodium Level [place] ([facility]) chloride level 111 mEq/L 98-107 Above high normal Chloride Level [place] ([facility]) potassium serum 4.1 mEq/L 3.5-5.1 Potassium Serum ATH NA ([facility]) anion gap 7 mEq/L 8-16 Below low normal Anion Gap [place] ( [facility]) carbon dioxide level 22 mEq/L 21-32 Carbon Dioxide Level [place] ([facility]) calcium level 6.6 mg/dL 8.8-10.2 Below low normal Calcium Level AT [facility]) ID Date Data Source [id number] 05/16/2020 04:42:00 PM EST [place] ([facility]) Name Value Range Interpretation Code Description Data Bridget rce(s) Supporting Document(s) white blood count 6.2 10 4.0-10.0 White Blood Count [place] ([facility]) hemoglobin 7.4 g/dL 12.0-15.5 Below low normal Hemoglobin [place] ( [facility]) red blood count 2.58 10 4.00-5.40 Below low normal Red Blood Coun t [place] ([facility]) mean corpuscular volume 90.3 fL 80.0-96.0 Mean Corpusc ular Volume [place] ([facility]) hematocrit 23.3 % 36.0-47.0 Below low normal Hematocrit [place] ( [facility]) mean corpuscular HGB conc 31.8 g/dL 32.0-36.5 Below low desi l Mean Corpuscular HGB Conc [place] ([facility]) mean corpuscular hemoglobin 28.7 pg 27.0-33.0 Mean Cor puscular Hemoglobin [place] ([facility]) red cell distribution width 13.7 % 11.5-14.5 Red Cell Distribution Width [place] ([facility]) platelet count, automated 186 10 150-450 Platelet C ount, Automated [place] ([facility]) nucleated red blood cell % 0.0 % 0-0 Nucleated Red Blood Cell % [place] ([facility]) ID Date Data Source [id number] 05/16/2020 04:42:00 PM EST [place] ([facility]) Name Value Range Interpretation Code Description Data Bridget rce(s) Supporting Document(s) blood urea nitrogen 91 mg/dL 7-18 Above high normal Blood Ure a Nitrogen [place] ([facility]) glucose, fasting 121 mg/dL 70-100 Above high normal Glucose, Fas ting [place] ([facility]) glomerular filtration rate >39 Below low normal Anay merular Filtration Rate [place] ([facility]) creatinine for GFR 6.12 mg/dL 0.55-1.30 Above high normal Creatinine for GFR [place] ([facility]) sodium level 140 mEq/L 136-145 Sodium Level [place] ([facility]) potassium serum 4.1 mEq/L 3.5-5.1 Potassium Serum ATHE NA ([facility]) carbon dioxide level 22 mEq/L 21-32 Carbon Dioxide Level [place] ([facility]) chloride level 111 mEq/L 98-107 Above high normal Chloride Level [place] ([facility]) anion gap 7 mEq/L 8-16 Below low normal Anion Gap [place] ( [facility]) calcium level 6.6 mg/dL 8.8-10.2 Below low normal Calcium Level AT [facility] ([facility]) ID Date Data Source [id number] 05/16/2020 12:38:00 PM EST [place] ([facility]) Name Value Range Interpretation Code Description Data Bridget rce(s) Supporting Document(s) antigen identification K antigen: negative Anti gen Identification [place] ([facility]) ID Date Data Source [id number] 05/16/2020 12:38:00 PM EST [facility]) Name Value Range Interpretation Code Description Data Bridget rce(s) Supporting Document(s) antibody identification anti-K Antibody Lachelle ntification [place] ([facility]) ID Date Data Source [id number] 05/16/2020 12:38:00 PM EST [facility]) Name Value Range Interpretation Code Description Data Bridget rce(s) Supporting Document(s) blood type O negative Blood Type [place] ([facility]) Ab screen (indirect shahid)vis positive Ab Sc reen (Indirect Shahid)vis [place] ([facility]) ID Date Data Source [id number] 05/16/2020 12:38:00 PM EST [place] ([facility]) Name Value Range Interpretation Code Description Data Bridget rce(s) Supporting Document(s) packed cells transfused product: packed cells count: 1 Packed Cells [place] ([facility]) ID Date Data Source [id number] 05/16/2020 12:38:00 PM EST [place] ([facility]) Name Value Range Interpretation Code Description Data Bridget rce(s) Supporting Document(s) antigen identification K antigen: negative Anti gen Identification [place] ([facility]) ID Date Data Source [id number] 05/16/2020 12:38:00 PM EST [place] ([facility]) Name Value Range Interpretation Code Description Data Bridget rce(s) Supporting Document(s) antibody identification anti-K Antibody Lachelle ntification [place] ([facility]) ID Date Data Source [id number] 05/16/2020 12:38:00 PM EST [place] ([facility]) Name Value Range Interpretation Code Description Data Bridget rce(s) Supporting Document(s) Ab screen (indirect shahid)vis positive Ab Sc reen (Indirect Shahid)vis [place] ([facility]) blood type O negative Blood Type [place] ([facility]) ID Date Data Source [id number] 05/16/2020 12:38:00 PM EST [place] ([facility]) Name Value Range Interpretation Code Description Data Bridget rce(s) Supporting Document(s) packed cells transfused product: packed cells count: 1 Packed Cells [place] ([facility]) ID Date Data Source [id number] 05/16/2020 10:43:00 AM EST [place] ([facility]) Name Value Range Interpretation Code Description Data Bridget rce(s) Supporting Document(s) ID Date Data Source [id number] 05/16/2020 10:43:00 AM EST [place] ([facility]) Name Value Range Interpretation Code Description Data Bridget rce(s) Supporting Document(s) ID Date Data Source [id number] 05/16/2020 10:38:00 AM EST [place] ([facility]) Name Value Range Interpretation Code Description Data Bridget rce(s) Supporting Document(s) ID Date Data Source [id number] 05/16/2020 10:38:00 AM EST [place] ([facility]) Name Value Range Interpretation Code Description Data Bridget rce(s) Supporting Document(s) procalcitonin <0.05 [facility] ID Date Data Source [id number] 05/16/2020 10:38:00 AM EST [place] ([facility]) Name Value Range Interpretation Code Description Data Bridget rce(s) Supporting Document(s) ID Date Data Source [id number] 05/16/2020 10:38:00 AM EST [facility] [facility]) Name Value Range Interpretation Code Description Data Bridget rce(s) Supporting Document(s) procalcitonin <0.05 Procalcitonin [place] ( [facility]) ID Date Data Source [id number] 05/16/2020 10:11:00 AM EST [place] ([facility]) Name Value Range Interpretation Code Description Data Bridget rce(s) Supporting Document(s) magnesium level 2.2 mg/dL 1.8-2.4 Magnesium Level ATHE [facility]) ID Date Data Source [id number] 05/16/2020 10:11:00 AM EST [facility] [facility]) Name Value Range Interpretation Code Description Data Bridget rce(s) Supporting Document(s) phosphorus level 7.7 mg/dL 2.5-4.9 Above high normal Phosphorus L kaykya [place] ([facility]) ID Date Data Source [id number] 05/16/2020 10:11:00 AM EST [place] ([facility]) Name Value Range Interpretation Code Description Data Bridget rce(s) Supporting Document(s) glucose, fasting 90 mg/dL 70-100 Glucose, Fasting AT [facility]) blood urea nitrogen 100 mg/dL 7-18 Above high normal Blood Ure a Nitrogen [place] ([facility]) glomerular filtration rate >39 Below low normal Anay merular Filtration Rate [place] ([facility]) creatinine for GFR 7.63 mg/dL 0.55-1.30 Above high normal Creatinine for GFR [place] ([facility]) sodium level 142 mEq/L 136-145 Sodium Level [place] ([facility]) chloride level 114 mEq/L 98-107 Above high normal Chloride Level [place] ([facility]) potassium serum 4.6 mEq/L 3.5-5.1 [facility] carbon dioxide level 18 mEq/L 21-32 Below low normal Carbon Di oxide Level [place] ([facility]) calcium level 6.6 mg/dL 8.8-10.2 Below low normal Calcium Level AT [facility]) anion gap 10 mEq/L 8-16 Anion Gap [place] ([facility]) AST/SGOT 4 U/L 7-37 Below low normal AST/SGOT [place] ( [facility]) alkaline phosphatase 60 U/L 45-117 Alkaline Phosph atase [facility]) ALT/SGPT < 6 12-78 Below low normal ALT/SGPT [facility]) total protein 5.0 gm/dL 6.4-8.2 Below low normal Total Protein AT [facility]) bilirubin,total 0.4 mg/dL 0.2-1.0 Bilirubin,total ATHE ([facility]) albumin 2.8 gm/dL 3.2-5.2 Below low normal Albumin [place] ( [facility]) albumin/globulin ratio 1.2-2.2 Albumin/globu ray Ratio [place] ([facility]) ID Date Data Source [id number] 05/16/2020 10:11:00 AM EST [place] ([facility]) Name Value Range Interpretation Code Description Data Bridget rce(s) Supporting Document(s) white blood count 6.5 10 4.0-10.0 White Blood Count [place] ([facility]) red blood count 2.59 10 4.00-5.40 Below low normal Red Blood Coun t [place] ([facility]) hematocrit 24.0 % 36.0-47.0 Below low normal Hematocrit [place] ( [facility]) hemoglobin 7.6 g/dL 12.0-15.5 Below low normal Hemoglobin [place] ( [facility]) mean corpuscular volume 92.7 fL 80.0-96.0 Mean Corpusc ular Volume [place] ([facility]) mean corpuscular HGB conc 31.7 g/dL 32.0-36.5 Below low desi l Mean Corpuscular HGB Conc [place] ([facility]) mean corpuscular hemoglobin 29.3 pg 27.0-33.0 Mean Cor puscular Hemoglobin [place] ([facility]) red cell distribution width 13.9 % 11.5-14.5 Red Cell Distribution Width [place] ([facility]) platelet count, automated 172 10 150-450 Platelet C ount, Automated [place] ([facility]) nucleated red blood cell % 0.0 % 0-0 Nucleated Red Blood Cell % [place] ([facility]) ID Date Data Source [id number] 05/16/2020 10:11:00 AM EST [place] ([facility]) Name Value Range Interpretation Code Description Data Bridget rce(s) Supporting Document(s) magnesium level 2.2 mg/dL 1.8-2.4 Magnesium Level ATHE NA ([facility]) ID Date Data Source [id number] 05/16/2020 10:11:00 AM EST [place] ([facility]) Name Value Range Interpretation Code Description Data Bridget rce(s) Supporting Document(s) phosphorus level 7.7 mg/dL 2.5-4.9 Above high normal Phosphorus L kaykay [place] ([facility]) ID Date Data Source [id number] 05/16/2020 10:11:00 AM EST [place] ([facility]) Name Value Range Interpretation Code Description Data Bridget rce(s) Supporting Document(s) glucose, fasting 90 mg/dL 70-100 Glucose, Fasting AT [facility]) blood urea nitrogen 100 mg/dL 7-18 Above high normal Blood Ure a Nitrogen [place] ([facility]) creatinine for GFR 7.63 mg/dL 0.55-1.30 Above high normal Creatinine for GFR [place] ([facility]) glomerular filtration rate >39 Below low normal Anay merular Filtration Rate [place] ([facility]) sodium level 142 mEq/L 136-145 Sodium Level [place] ([facility]) potassium serum 4.6 mEq/L 3.5-5.1 Potassium Serum ATHE NA ([facility]) chloride level 114 mEq/L 98-107 Above high normal Chloride Level [place] ([facility]) carbon dioxide level 18 mEq/L 21-32 Below low normal Carbon Di oxide Level [place] ([facility]) calcium level 6.6 mg/dL 8.8-10.2 Below low normal Calcium Level AT [facility]) anion gap 10 mEq/L 8-16 Anion Gap [place] ([facility]) AST/SGOT 4 U/L 7-37 Below low normal AST/SGOT [place] ( [facility]) ALT/SGPT < 6 12-78 Below low normal ALT/SGPT [place] ( [facility]) alkaline phosphatase 60 U/L 45-117 Alkaline Phosph atase [place] ([facility]) total protein 5.0 gm/dL 6.4-8.2 Below low normal Total Protein AT [facility]) albumin 2.8 gm/dL 3.2-5.2 Below low normal Albumin [place] ( [facility]) albumin/globulin ratio 1.2-2.2 Albumin/globu ray Ratio [place] ([facility]) ID Date Data Source [id number] 05/16/2020 10:11:00 AM EST [place] ([facility]) Name Value Range Interpretation Code Description Data Bridget rce(s) Supporting Document(s) white blood count 6.5 10 4.0-10.0 White Blood Count [place] ([facility]) red blood count 2.59 10 4.00-5.40 Below low normal Red Blood Coun t [place] ([facility]) hematocrit 24.0 % 36.0-47.0 Below low normal Hematocrit [place] ( [facility]) hemoglobin 7.6 g/dL 12.0-15.5 Below low normal Hemoglobin [place] ( [facility]) mean corpuscular hemoglobin 29.3 pg 27.0-33.0 Mean Cor puscular Hemoglobin [place] ([facility]) mean corpuscular HGB conc 31.7 g/dL 32.0-36.5 Below low desi l Mean Corpuscular HGB Conc [place] ([facility]) mean corpuscular volume 92.7 fL 80.0-96.0 Mean Corpusc ular Volume [place] ([facility]) red cell distribution width 13.9 % 11.5-14.5 Red Cell Distribution Width [place] ([facility]) platelet count, automated 172 10 150-450 Platelet C ount, Automated [place] ([facility]) nucleated red blood cell % 0.0 % 0-0 Nucleated Red Blood Cell % [place] ([facility]) ID Date Data Source [id number] 05/16/2020 06:08:00 AM EST [place] ([facility]) Name Value Range Interpretation Code Description Data Bridget rce(s) Supporting Document(s) ABG pH (arterial) 7.151 units 7.350-7.450 Below low normal ABG pH (Ar terial) [place] ([facility]) ABG partial pressure O2 119.0 mmHg 75.0-100.0 Above high normal ABG Partial Pressure O2 [place] ([facility]) ABG partial pressure CO2 24.1 mmHg 35.0-45.0 Below low normal ABG Partial Pressure CO2 [place] ([facility]) ABG total CO2 9.0 mEq/L 23.0-31.0 Below low normal ABG Total CO2 AT [facility] ([facility]) ABG base excess -2.0-2.0 Below low normal ABG Base Exces s [place] ([facility]) ABG HCO3 8.2 mEq/L 22.0-26.0 Below low normal Abg Hco3 [facility]) ABG standard HCO3 9.8 mEq/L 22.0-26.0 Below low normal ABG Standard HCO3 [place] ([facility]) ABG O2 saturation 97.4 % 95.0-99.0 ABG O2 Saturation [facility]) ID Date Data Source [id number] 05/16/2020 06:08:00 AM EST [facility]) Name Value Range Interpretation Code Description Data Bridget rce(s) Supporting Document(s) ABG partial pressure CO2 24.1 mmHg 35.0-45.0 Below low normal ABG Partial Pressure CO2 [place] ([facility]) ABG pH (arterial) 7.151 units 7.350-7.450 Below low normal ABG pH (Ar terial) [place] ([facility]) ABG total CO2 9.0 mEq/L 23.0-31.0 Below low normal ABG Total CO2 AT [facility]) ABG partial pressure O2 119.0 mmHg 75.0-100.0 Above high normal ABG Partial Pressure O2 [place] ([facility]) ABG base excess -2.0-2.0 Below low normal ABG Base Exces s [place] ([facility]) ABG HCO3 8.2 mEq/L 22.0-26.0 Below low normal Abg Hco3 [place] ( [facility]) ABG standard HCO3 9.8 mEq/L 22.0-26.0 Below low normal ABG Standard HCO3 [place] ([facility]) ABG O2 saturation 97.4 % 95.0-99.0 ABG O2 Saturation [facility]) ID Date Data Source [id number] 05/16/2020 02:59:00 AM EST [place] ([facility]) Name Value Range Interpretation Code Description Data Bridget rce(s) Supporting Document(s) glucose, fasting 95 mg/dL 70-100 Glucose, Fasting AT [facility]) blood urea nitrogen 115 mg/dL 7-18 Above high normal Blood Ure a Nitrogen [facility]) creatinine for GFR 11.00 mg/dL 0.55-1.30 Above high normal Creatinin e for GFR [place] ([facility]) sodium level 139 mEq/L 136-145 Sodium Level [place] ([facility]) glomerular filtration rate >39 Below low normal Anay merular Filtration Rate [place] ([facility]) potassium serum 4.6 mEq/L 3.5-5.1 [facility] carbon dioxide level 17 mEq/L 21-32 Below low normal Carbon Di oxide Level [place] ([facility]) chloride level 109 mEq/L 98-107 Above high normal Chloride Level [place] ([facility]) calcium level 7.4 mg/dL 8.8-10.2 Below low normal Calcium Level AT [facility]) anion gap 13 mEq/L 8-16 Anion Gap [place] ([facility]) ID Date Data Source [id number] 05/16/2020 02:59:00 AM EST [facility]) Name Value Range Interpretation Code Description Data Bridget rce(s) Supporting Document(s) glucose, fasting 95 mg/dL 70-100 Glucose, Fasting AT [facility]) blood urea nitrogen 115 mg/dL 7-18 Above high normal Blood Ure a Nitrogen [place] ([facility]) creatinine for GFR 11.00 mg/dL 0.55-1.30 Above high normal Creatinin e for GFR [place] ([facility]) glomerular filtration rate >39 Below low normal Anay merular Filtration Rate [place] ([facility]) potassium serum 4.6 mEq/L 3.5-5.1 Potassium Serum ATHE NA ([facility]) sodium level 139 mEq/L 136-145 Sodium Level [place] (No [facility]) carbon dioxide level 17 mEq/L 21-32 Below low normal Carbon Di oxide Level [place] ([facility]) chloride level 109 mEq/L 98-107 Above high normal Chloride Level [place] ([facility]) calcium level 7.4 mg/dL 8.8-10.2 Below low normal Calcium Level AT [facility] ([facility]) anion gap 13 mEq/L 8-16 Anion Gap [place] ([facility]) ID Date Data Source [id number] 05/16/2020 12:00:00 AM EST [place] ([facility]) Name Value Range Interpretation Code Description Data Bridget rce(s) Supporting Document(s) bedside glucose 93 mg/dL 83-110 Bedside Glucose ATHE ([facility]) ID Date Data Source [id number] 05/16/2020 12:00:00 AM EST [place] ([facility]) Name Value Range Interpretation Code Description Data Bridget rce(s) Supporting Document(s) bedside glucose 93 mg/dL 83-110 Bedside Glucose ATHE NA ([facility]) ID Date Data Source [id number] 05/15/2020 09:25:00 PM EST [place] ([facility]) Name Value Range Interpretation Code Description Data Bridget rce(s) Supporting Document(s) glucose, fasting 109 mg/dL 70-100 Above high normal Glucose, Fas ting [place] ([facility]) glomerular filtration rate >39 Below low normal Anay merular Filtration Rate [place] ([facility]) blood urea nitrogen 128 mg/dL 7-18 Above high normal Blood Ure a Nitrogen [place] ([facility]) creatinine for GFR 13.30 mg/dL 0.55-1.30 Above high normal Creatinin e for GFR [place] ([facility]) sodium level 132 mEq/L 136-145 Below low normal Sodium Level ATHE NA ([facility]) carbon dioxide level 14 mEq/L 21-32 Below low normal Carbon Di oxide Level [place] ([facility]) chloride level 102 mEq/L 98-107 Chloride Level [place] ([facility]) potassium serum 6.1 mEq/L 3.5-5.1 Above high normal Potassium Ser um [place] ([facility]) anion gap 16 mEq/L 8-16 Anion Gap [place] ([facility]) calcium level 8.8 mg/dL 8.8-10.2 Calcium Level [place] ( [facility]) ID Date Data Source [id number] 05/15/2020 09:25:00 PM EST [place] ([facility]) Name Value Range Interpretation Code Description Data Bridget rce(s) Supporting Document(s) white blood count 7.6 10 4.0-10.0 White Blood Count [place] ([facility]) hemoglobin 10.3 g/dL 12.0-15.5 Below low normal Hemoglobin [place] ( [facility]) red blood count 3.56 10 4.00-5.40 Below low normal Red Blood Coun t [place] ([facility]) hematocrit 32.8 % 36.0-47.0 Below low normal Hematocrit [place] ( [facility]) mean corpuscular hemoglobin 28.9 pg 27.0-33.0 Mean Cor puscular Hemoglobin [place] ([facility]) mean corpuscular volume 92.1 fL 80.0-96.0 Mean Corpusc ular Volume [place] ([facility]) red cell distribution width 13.7 % 11.5-14.5 Red Cell Distribution Width [place] ([facility]) mean corpuscular HGB conc 31.4 g/dL 32.0-36.5 Below low dsei l Mean Corpuscular HGB Conc [place] ([facility]) neutrophils % 57.0 % 36.0-66.0 Neutrophils % [place] ( [facility]) platelet count, automated 251 10 150-450 Platelet C ount, Automated [place] ([facility]) lymph % 31.1 % 24.0-44.0 Lymph % [place] ([facility]) mono % 11.0 % 0.0-5.0 Above high normal Whiteside % [place] ([facility]) eos % 0.0 % 0.0-3.0 Eos % [place] ([facility]) baso % 0.4 % 0.0-1.0 Baso % [place] ([facility]) neutrophils # 4.3 10 1.5-8.5 Neutrophils # [place] ( [facility]) nucleated red blood cell % 0.0 % 0-0 Nucleated Red Blood Cell % [place] [facility] [facility]) immature granulocyte % 0.5 % 0-3.0 Immature Gran ulocyte % [place] ([facility]) mono # 0.8 10 0.0-0.8 [place] # [place] ([facility]) lymph # 2.4 10 1.5-5.0 Lymph # [place] ([facility]) eos # 0.0 10 0.0-0.5 Eos # [place] ([facility]) baso # 0.0 10 0.0-0.2 Baso # [place] ([facility]) ID Date Data Source [id number] 05/15/2020 09:25:00 PM EST [place] ([facility]) Name Value Range Interpretation Code Description Data Bridget rce(s) Supporting Document(s) blood urea nitrogen 128 mg/dL 7-18 Above high normal Blood Ure a Nitrogen [place] ([facility]) creatinine for GFR 13.30 mg/dL 0.55-1.30 Above high normal Creatinin e for GFR [place] ([facility]) glucose, fasting 109 mg/dL 70-100 Above high normal Glucose, Fas ting [place] ([facility]) potassium serum 6.1 mEq/L 3.5-5.1 Above high normal Potassium Ser um [place] ([facility]) glomerular filtration rate >39 Below low normal Anay merular Filtration Rate [place] ([facility]) chloride level 102 mEq/L 98-107 Chloride Level [place] ([facility]) sodium level 132 mEq/L 136-145 Below low normal Sodium Level ATHE NA ([facility]) calcium level 8.8 mg/dL 8.8-10.2 Calcium Level [place] ( [facility]) carbon dioxide level 14 mEq/L 21-32 Below low normal Carbon Di oxide Level [place] ([facility]) anion gap 16 mEq/L 8-16 Anion Gap [place] ([facility]) ID Date Data Source [id number] 05/15/2020 09:25:00 PM EST [facility]) Name Value Range Interpretation Code Description Data Bridget rce(s) Supporting Document(s) hematocrit 32.8 % 36.0-47.0 Below low normal Hematocrit [place] ( [facility]) hemoglobin 10.3 g/dL 12.0-15.5 Below low normal Hemoglobin [place] ( [facility]) white blood count 7.6 10 4.0-10.0 White Blood Count [place] ([facility]) red blood count 3.56 10 4.00-5.40 Below low normal Red Blood Coun t [facility]) mean corpuscular volume 92.1 fL 80.0-96.0 Mean Corpusc ular Volume [place] ([facility]) mean corpuscular hemoglobin 28.9 pg 27.0-33.0 Mean Cor puscular Hemoglobin [place] ([facility]) mean corpuscular HGB conc 31.4 g/dL 32.0-36.5 Below low desi l Mean Corpuscular HGB Conc [place] ([facility]) platelet count, automated 251 10 150-450 [facility] neutrophils % 57.0 % 36.0-66.0 Neutrophils % [place] ( [facility]) lymph % 31.1 % 24.0-44.0 Lymph % [place] ([facility]) red cell distribution width 13.7 % 11.5-14.5 Red Cell Distribution Width [place] ([facility]) mono % 11.0 % 0.0-5.0 Above high normal [place] % [place] ([facility]) immature granulocyte % 0.5 % 0-3.0 Immature Gran ulocyte % [place] ([facility]) eos % 0.0 % 0.0-3.0 Eos % [place] ([facility]) baso % 0.4 % 0.0-1.0 Baso % [place] ([facility]) neutrophils # 4.3 10 1.5-8.5 Neutrophils # [place] ( [facility]) mono # 0.8 10 0.0-0.8 [place] # [place] ([facility]) nucleated red blood cell % 0.0 % 0-0 Nucleated Red Blood Cell % [place] ([facility]) lymph # 2.4 10 1.5-5.0 Lymph # [place] ([facility]) baso # 0.0 10 0.0-0.2 Baso # [place] ([facility]) eos # 0.0 10 0.0-0.5 Eos # [place] ([facility]) ID Date Data Source [id number] 05/15/2020 03:45:00 PM EST [place] ([facility]) Name Value Range Interpretation Code Description Data Bridget rce(s) Supporting Document(s) thyroid stimulating hormone 0.937 uIU/mL 0.358-3.740 Thyroid Stimulating Hormone [place] ([facility]) ID Date Data Source [id number] 05/15/2020 03:45:00 PM EST [place] ([facility]) Name Value Range Interpretation Code Description Data Bridget rce(s) Supporting Document(s) acetaminophen level < 2.0 10.0-30.0 Below low normal Acetaminop hen Level [place] ([facility]) ID Date Data Source [id number] 05/15/2020 03:45:00 PM EST [place] ([facility]) Name Value Range Interpretation Code Description Data Bridget rce(s) Supporting Document(s) salicylate level < 1.7 5.0-30.0 Below low normal Salicylate Le g[place]riel [place] ([facility]) ID Date Data Source [id number] 05/15/2020 03:45:00 PM EST [place] ([facility]) Name Value Range Interpretation Code Description Data Bridget rce(s) Supporting Document(s) ethyl alcohol (ethanol) < 0.003 0.000-0.010 Ethyl Alcoh ol (Ethanol) [place] ([facility]) ID Date Data Source [id number] 05/15/2020 03:45:00 PM EST [place] ([facility]) Name Value Range Interpretation Code Description Data Bridget rce(s) Supporting Document(s) glucose, fasting 99 mg/dL 70-100 Glucose, Fasting AT [facility]) blood urea nitrogen 125 mg/dL 7-18 Above high normal Blood Ure a Nitrogen [place] ([facility]) creatinine for GFR 13.40 mg/dL 0.55-1.30 Above high normal Creatinin e for GFR [place] ([facility]) glomerular filtration rate >39 Below low normal Anay merular Filtration Rate [place] ([facility]) sodium level 127 mEq/L 136-145 Below low normal Sodium Level ATHE NA ([facility]) potassium serum 8.1 mEq/L 3.5-5.1 Above high normal Potassium Ser um [place] ([facility]) chloride level 101 mEq/L 98-107 Chloride Level [place] ([facility]) carbon dioxide level 11 mEq/L 21-32 Below low normal Carbon Di oxide Level [place] ([facility]) anion gap 15 mEq/L 8-16 Anion Gap [place] ([facility]) calcium level 8.7 mg/dL 8.8-10.2 Below low normal Calcium Level AT [facility] ([facility]) ID Date Data Source [id number] 05/15/2020 03:45:00 PM EST [place] ([facility]) Name Value Range Interpretation Code Description Data Bridget rce(s) Supporting Document(s) ALT/SGPT 9 U/L 12-78 Below low normal ALT/SGPT [place] ( [facility]) AST/SGOT < 3 7-37 Below low normal AST/SGOT [place] ( [facility]) alkaline phosphatase 99 U/L 45-117 Alkaline Phosph atase [place] ([facility]) bilirubin,total 0.4 mg/dL 0.2-1.0 Bilirubin,total ATHE ([facility]) bilirubin,direct < 0.1 0.0-0.2 Bilirubin,direct AT [facility] ([facility]) total protein 8.0 gm/dL 6.4-8.2 Total Protein [place] ( [facility]) albumin/globulin ratio 1.2-2.2 Albumin/globu ray Ratio [place] ([facility]) albumin 4.4 gm/dL 3.2-5.2 Albumin [place] ([facility]) ID Date Data Source [id number] 05/15/2020 03:45:00 PM EST [place] ([facility]) Name Value Range Interpretation Code Description Data Bridget rce(s) Supporting Document(s) CPK creatine phosphokinase 41 U/L 26-192 CPK Creat ine Phosphokinase [place] ([facility]) mb/CK relative index < or =4 mb/CK Relative Index [place] ([facility]) CK-mb value mass 1.0 NG/mL <3.6 CK-mb Value Mass AT [facility] ([facility]) troponin I < 0.02 < 0.10 Troponin I [place] ([facility]) ID Date Data Source [id number] 05/15/2020 03:45:00 PM EST [place] ([facility]) Name Value Range Interpretation Code Description Data Bridget rce(s) Supporting Document(s) influenza A amplification negative negative Influenza a Amplification [place] ([facility]) influenza B amplification negative negative Influenza B Amplification [place] ([facility]) sars covid-19 amplification negative negative Sars Cov id-19 Amplification [place] ([facility]) RSV amplification negative negative RSV Amplification [place] ([facility]) ID Date Data Source [id number] 05/15/2020 03:45:00 PM EST [place] ([facility]) Name Value Range Interpretation Code Description Data Bridget rce(s) Supporting Document(s) lactic acid sepsis protocol 0.9 mmol/L 0.4-2.0 Lactic A vicenta Sepsis Protocol [facility]) ID Date Data Source [id number] 05/15/2020 03:45:00 PM EST [place] ([facility]) Name Value Range Interpretation Code Description Data Bridget rce(s) Supporting Document(s) ammonia 11 umol/L <32 Ammonia [place] ([facility]) ID Date Data Source [id number] 05/15/2020 03:45:00 PM EST [place] ([facility]) Name Value Range Interpretation Code Description Data Bridget rce(s) Supporting Document(s) venous partial pressure CO2 37.8 mmHg 38.0-50.0 Below low nor mal Venous Partial Pressure CO2 [place] ([facility]) venous pH 6.975 units 7.330-7.430 Below low normal Venous pH [place] ([facility]) venous partial pressure O2 44.8 mmHg 30.0-50.0 Venous Pa rtial Pressure O2 [place] ([facility]) venous HCO3 8.6 mEq/L 23.0-27.0 Below low normal Venous HCO3 [place] ([facility]) venous total CO2 9.8 mEq/L 24.0-28.0 Below low normal Venous Total CO2 [place] ([facility]) venous base excess -2.0-2.0 Below low normal Venous Base Excess [place] ([facility]) venous O2 saturation 75.4 % 60.0-80.0 Venous O2 Satur ation [place] ([facility]) venous standard HCO3 8.2 mEq/L Venous Standard HCO3 [place] ([facility]) ID Date Data Source [id number] 05/15/2020 03:45:00 PM EST [place] ([facility]) Name Value Range Interpretation Code Description Data Bridget rce(s) Supporting Document(s) white blood count 8.4 10 4.0-10.0 White Blood Count [place] ([facility]) red blood count 3.83 10 4.00-5.40 Below low normal Red Blood Coun t [place] ([facility]) hematocrit 36.4 % 36.0-47.0 Hematocrit [place] ([facility]) hemoglobin 10.9 g/dL 12.0-15.5 Below low normal Hemoglobin [place] ( [facility]) mean corpuscular hemoglobin 28.5 pg 27.0-33.0 Mean Cor puscular Hemoglobin [place] ([facility]) mean corpuscular volume 95.0 fL 80.0-96.0 Mean Corpusc ular Volume [place] ([facility]) mean corpuscular HGB conc 29.9 g/dL 32.0-36.5 Below low desi l Mean Corpuscular HGB Conc [place] ([facility]) red cell distribution width 13.9 % 11.5-14.5 Red Cell Distribution Width [place] ([facility]) lymph % 18.5 % 24.0-44.0 Below low normal Lymph % [place] ( [facility]) platelet count, automated 266 10 150-450 Platelet C ount, Automated [place] ([facility]) neutrophils % 74.1 % 36.0-66.0 Above high normal Neutrophils % [place] ([facility]) mono % 6.2 % 0.0-5.0 Above high normal [place] % [place] ([facility]) eos % 0.0 % 0.0-3.0 Eos % [place] ([facility]) immature granulocyte % 0.7 % 0-3.0 Immature Gran ulocyte % [place] ([facility]) baso % 0.5 % 0.0-1.0 Baso % [place] ([facility]) neutrophils # 6.2 10 1.5-8.5 Neutrophils # [place] ( [facility]) nucleated red blood cell % 0.0 % 0-0 Nucleated Red Blood Cell % [place] ([facility]) lymph # 1.6 10 1.5-5.0 Lymph # [place] ([facility]) mono # 0.5 10 0.0-0.8 [place] # [place] ([facility]) eos # 0.0 10 0.0-0.5 Eos # [place] ([facility]) baso # 0.0 10 0.0-0.2 Baso # [place] ([facility]) ID Date Data Source [id number] 05/15/2020 03:45:00 PM EST [place] ([facility]) Name Value Range Interpretation Code Description Data Bridget rce(s) Supporting Document(s) thyroid stimulating hormone 0.937 uIU/mL 0.358-3.740 Thyroid Stimulating Hormone [place] ([facility]) ID Date Data Source [id number] 05/15/2020 03:45:00 PM EST [place] ([facility]) Name Value Range Interpretation Code Description Data Bridget rce(s) Supporting Document(s) acetaminophen level < 2.0 10.0-30.0 Below low normal Acetaminop hen Level [place] ([facility]) ID Date Data Source [id number] 05/15/2020 03:45:00 PM EST [place] ([facility]) Name Value Range Interpretation Code Description Data Bridget rce(s) Supporting Document(s) salicylate level < 1.7 5.0-30.0 Below low normal Salicylate [place] g[place]riel [place] ([facility]) ID Date Data Source [id number] 05/15/2020 03:45:00 PM EST [place] ([facility]) Name Value Range Interpretation Code Description Data Bridget rce(s) Supporting Document(s) ethyl alcohol (ethanol) < 0.003 0.000-0.010 Ethyl Alcoh ol (Ethanol) [place] ([facility]) ID Date Data Source [id number] 05/15/2020 03:45:00 PM EST [place] ([facility]) Name Value Range Interpretation Code Description Data Bridget rce(s) Supporting Document(s) glucose, fasting 99 mg/dL 70-100 Glucose, Fasting AT [facility]) glomerular filtration rate >39 Below low normal Anay merular Filtration Rate [place] ([facility]) blood urea nitrogen 125 mg/dL 7-18 Above high normal Blood Ure a Nitrogen [place] ([facility]) creatinine for GFR 13.40 mg/dL 0.55-1.30 Above high normal Creatinin e for GFR [place] ([facility]) carbon dioxide level 11 mEq/L 21-32 Below low normal Carbon Di oxide Level [place] ([facility]) sodium level 127 mEq/L 136-145 Below low normal Sodium Level ATH NA ([facility]) potassium serum 8.1 mEq/L 3.5-5.1 Above high normal Potassium Ser um [place] ([facility]) chloride level 101 mEq/L 98-107 Chloride Level [place] ([facility]) calcium level 8.7 mg/dL 8.8-10.2 Below low normal Calcium Level AT [facility]) anion gap 15 mEq/L 8-16 Anion Gap [place] ([facility]) ID Date Data Source [id number] 05/15/2020 03:45:00 PM EST [facility]) Name Value Range Interpretation Code Description Data Bridget rce(s) Supporting Document(s) AST/SGOT < 3 7-37 Below low normal AST/SGOT [place] ( [facility]) alkaline phosphatase 99 U/L 45-117 Alkaline Phosph atase [place] ([facility]) ALT/SGPT 9 U/L 12-78 Below low normal ALT/SGPT [place] ( [facility]) bilirubin,total 0.4 mg/dL 0.2-1.0 Bilirubin,total ATHE NA ([facility]) albumin 4.4 gm/dL 3.2-5.2 Albumin [place] ([facility]) bilirubin,direct < 0.1 0.0-0.2 Bilirubin,direct AT [facility] ([facility]) albumin/globulin ratio 1.2-2.2 Albumin/globu ray Ratio [place] ([facility]) total protein 8.0 gm/dL 6.4-8.2 Total Protein [place] ( [facility]) ID Date Data Source [id number] 05/15/2020 03:45:00 PM EST [place] ([facility]) Name Value Range Interpretation Code Description Data Bridget rce(s) Supporting Document(s) CK-mb value mass 1.0 NG/mL <3.6 CK-mb Value Mass AT [facility] ([facility]) CPK creatine phosphokinase 41 U/L 26-192 CPK Creat ine Phosphokinase [place] ([facility]) mb/CK relative index < or =4 mb/CK Relative Index [place] ([facility]) troponin I < 0.02 < 0.10 Troponin I [place] ([facility]) ID Date Data Source [id number] 05/15/2020 03:45:00 PM EST [place] ([facility]) Name Value Range Interpretation Code Description Data Bridget rce(s) Supporting Document(s) RSV amplification negative negative RSV Amplification [place] ([facility]) influenza B amplification negative negative Influenza B Amplification [place] ([facility]) influenza A amplification negative negative Influenza a Amplification [place] ([facility]) sars covid-19 amplification negative negative Sars Cov id-19 Amplification [place] ([facility]) ID Date Data Source [id number] 05/15/2020 03:45:00 PM EST [place] ([facility]) Name Value Range Interpretation Code Description Data Bridget rce(s) Supporting Document(s) lactic acid sepsis protocol 0.9 mmol/L 0.4-2.0 Lactic A vicenta Sepsis Protocol [place] ([facility]) ID Date Data Source [id number] 05/15/2020 03:45:00 PM EST [place] ([facility]) Name Value Range Interpretation Code Description Data Bridget rce(s) Supporting Document(s) ammonia 11 umol/L <32 Ammonia [place] ([facility]) ID Date Data Source [id number] 05/15/2020 03:45:00 PM EST [place] ([facility]) Name Value Range Interpretation Code Description Data Bridget rce(s) Supporting Document(s) venous pH 6.975 units 7.330-7.430 Below low normal Venous pH [place] ([facility]) venous partial pressure O2 44.8 mmHg 30.0-50.0 Venous Pa rtial Pressure O2 [place] ([facility]) venous partial pressure CO2 37.8 mmHg 38.0-50.0 Below low nor mal Venous Partial Pressure CO2 [place] ([facility]) venous base excess -2.0-2.0 Below low normal Venous Base Excess [place] ([facility]) venous HCO3 8.6 mEq/L 23.0-27.0 Below low normal Venous HCO3 [place] ([facility]) venous total CO2 9.8 mEq/L 24.0-28.0 Below low normal Venous Total CO2 [place] ([facility]) venous O2 saturation 75.4 % 60.0-80.0 Venous O2 Satur ation [place] ([facility]) venous standard HCO3 8.2 mEq/L Venous Standard HCO3 [place] ([facility]) ID Date Data Source [id number] 05/15/2020 03:45:00 PM EST [place] ([facility]) Name Value Range Interpretation Code Description Data Bridget rce(s) Supporting Document(s) white blood count 8.4 10 4.0-10.0 White Blood Count [place] ([facility]) hemoglobin 10.9 g/dL 12.0-15.5 Below low normal Hemoglobin [place] ( [facility]) hematocrit 36.4 % 36.0-47.0 Hematocrit [place] ([facility]) red blood count 3.83 10 4.00-5.40 Below low normal Red Blood Coun t [place] ([facility]) mean corpuscular hemoglobin 28.5 pg 27.0-33.0 Mean Cor puscular Hemoglobin [place] ([facility]) mean corpuscular volume 95.0 fL 80.0-96.0 Mean Corpusc ular Volume [place] ([facility]) mean corpuscular HGB conc 29.9 g/dL 32.0-36.5 Below low desi l Mean Corpuscular HGB Conc [place] ([facility]) red cell distribution width 13.9 % 11.5-14.5 Red Cell Distribution Width [place] ([facility]) platelet count, automated 266 10 150-450 Platelet C ount, Automated [place] ([facility]) lymph % 18.5 % 24.0-44.0 Below low normal Lymph % [place] ( [facility]) neutrophils % 74.1 % 36.0-66.0 Above high normal Neutrophils % A [facility] ([facility]) baso % 0.5 % 0.0-1.0 Baso % [place] ([facility]) mono % 6.2 % 0.0-5.0 Above high normal [place] % [place] ([facility]) eos % 0.0 % 0.0-3.0 Eos % [place] ([facility]) nucleated red blood cell % 0.0 % 0-0 Nucleated Red Blood Cell % [place] ([facility]) immature granulocyte % 0.7 % 0-3.0 Immature Gran ulocyte % [place] ([facility]) neutrophils # 6.2 10 1.5-8.5 Neutrophils # [place] ( [facility]) mono # 0.5 10 0.0-0.8 [place] # [place] ([facility]) lymph # 1.6 10 1.5-5.0 Lymph # [place] ([facility]) baso # 0.0 10 0.0-0.2 Baso # [place] ([facility]) eos # 0.0 10 0.0-0.5 Eos # [place] ([facility]) ID Date Data Source [id number] 05/15/2020 03:45:00 PM EST [facility] Name Value Range Interpretation Code Description Data Bridget rce(s) Supporting Document(s) SARS coronavirus 2 RNA [Presence] in Res piratory specimen by SHIMA with probe detection NEGATIVE [facility] This lab was ordered by [facility] a nd reported by [facility]. ID Date Data Source [id number] 01/27/2020 02:02:35 PM EDT [facility] Measurements & CalculationsHeight: 60 inches (5 ft. 0 in.) 152.40 cm Weight: 124.4 pounds 56.55 kg Body Mass Index (BMI): 24.38BMI Interpretation: Healthy WeightBody Surface Area (BSA): 1.53Weight Management Education Done (Nutrition/Physical Activity)Vital SignsTemperature: 99.0F 37.22C tympanic Pulse Rate: 61 beats/minuteRespiratory Rate: 18 respirations/minuteBlood Pressure: 158/64 left arm sitting automaticO2 Saturation: 98% Vital Signs performed by: Chacha Gary LPN, January 27, 2020 2:03 PMInitial Intake Information From: patientRoom #: 1Infectious Disease / Travel ScreeningRecent travel for you or any close contacts? NoHave you had any close contact with anyone diagnosed with or under investigation for COVID-19 (coronavirus)? NoFever? NoRespiratory symptoms: cough, cold, congestion, shortness of breath, difficulty breathing? NoLoss of smell? NoLoss of taste? NoSmoking, Tobacco, Vaping or Smoke Exposure StatusSmoke Status: former smokerTobacco Use: NoDo you vape? NoPassive Smoke Exposure: NoMenstrual HistoryAny possibility of ? NoComments: menopauseHealthcare HistorySince your last office visit...Have you been admitted to the hospital? Yes - [facility]CHave you been to an emergency room (ER) or urgent care clinic? YesHave you seen another healthcare provider? Yes - kidneyHave you seen a dentist? NoIntake performed by: Chacha Gary LPN, January 27, 2020 2:05 PMRate Your HealthIn general, would you say your health is? GoodPain AssessmentAre you currently having any pain which... You would like your provider to address? No Affects your activity level? NoDepression Screening - PHQ-2Over the last two weeks, have you... Had little interest or pleasure in doing things? More than half the days Been feeling down, depressed, or hopeless? More than half the days PHQ-2 Score: 4Anxiety Screening - KAYLI-2Over the last two weeks, have you been... Feeling nervous, anxious, or on edge? Not at all Unable to stop or control worrying? Not at all KAYLI-2 Score: 0Food InsecurityWithin the past year...Did you worry whether your food would run out before you got money to buy more? Never trueWas there a time when the food you bought didn't last and you didn't have money to get more? Never truePHQ-9 1. Over the last 2 weeks, patient reports the following frequency of symptoms: a. Little interest or pleasure in doing things -More than half the days b. Feeling down, depressed, or hopeless - More than half the days c. Trouble falling asleep, staying asleep, or sleeping too much -More than half the days d. Feeling tired or having little energy -More than half the days e. Poor appetite or overeating -More than half the days f. Feeling bad about yourself, feeling that you are a failure, or feeling that you have let yourself or your family down -More than half the days g. Trouble concentrating on things such as reading the newspaper or watching television -More than half the days h. Moving or speaking so slowly that other people could have noticed. Or being so fidgety or restless that you have been moving around a lot more than usual -More than half the days i. Thinking that you would be better off or that you want to hurt yourself in some way -Not at all2. If you checked off any problems, how difficult have these problems made it for you to do your work, take care of things at home, or get along with other people? -Very DifficultToday's PHQ-9 Results Score: 16 Severity: Moderately Severe Diagnosis Recommendation: Major Depression Functional Impairment: Very DifficultToday's Follow-Up Action Depression follow-up done. Follow-Up Action: Patient RefusedScreening, Brief Intervention, & Referral to Treatment (SBIRT)Pre-Screening Questions How many times have you have 4 or more drinks in a day? 0How many times have you used an illegal drug or used a prescription medication for a non-medical reason? 0Per formed by: Chacha Gary LPN, January 27, 2020 2:06 PMPatient History Medical History:Ulcerative Colitis s/p coloscomyHypertensionatrial fibrillationSurgical History:patrial colectomy-complete colectomy with colostomy-2007Family History:Cancer - Unknown (Brother)Heart disease (Father)Social/Personal History: Chief Complaints d/cHistory of Present Illness (HPI)74 yo female presents for [facility] hosp d/c. No complaints. Pt was admitted to [facility] 01/11/2020-01/19/2020 for acute renal failure secondary to dehydration, hyperkalemia. While inpatient she was found to have Afib with RVR, was seen inpatient by Dr. Garvin. Sees him outpatient 01/30/2020. Pt's Prozac was discontinued as this was believed to be contributing to her nausea/vomiting, patient declines restarting any mood medications at this time. Pt states she needs refill of atorvastatin and allopurinol.Transitions of Care InboundProblem ReviewProblem List was reviewed and/or updated during this visit.Medication Reconciliation & ReviewMedication List was reviewed and/or updated during this visit, including review of any mtqz-lqb-zvgyzgh medications, herbal therapies, and/or supplements.Allergy ReviewAllergy List was reviewed and/or updated during this visit.Adult Preventive CareLabs/Meds/Other Counseling-Nutrition and Physical Activity:BMI Interpretation: Healthy Weight (01/27/2020) Counseling: Done (01/27/2020) Physical Activity: Done (01/27/2020)Review of Systems General: Denies loss of appetite, chills, dizziness, fatigue, fever, headache, feeling ill. Cardiovascular: Denies chest pain, palpitations, feeling faint, peripheral edema. Respiratory: Denies cough, difficulty breathing, shortness of breath, wheezing. Gastrointestinal: Complains of nausea. Denies vomiting, diarrhea, pain or discomfort, blood in stool, black or tarry stools. Neurologic: Denies weakness, feeling faint. Physical ExamGeneral Appearance: well nourished, well hydrated, no acute distressEyes, External: conjunctivae and lids normal, EOMIRespiratory, Auscultation: clear to auscultation bilaterally; no rales, rhonchi, or wheezesCardiovascular, Auscultation: S1, S2 audible; no murmur, rub, or gallop; RRRPeripheral Circulation: no clubbing, cyanosis, edema, or varicositiesAbdomen: soft, non-tender, no masses, bowel sounds normal, colostomy in place without surrounding erythemaGait & Station: normalOrientation: oriented to time, place, and personMood & Affect: somewhat flat affect, speech clear, good eye contactJudgment & Insight: intactCare Management Plan Transitions of CareInboundRate Your HealthIn general, would you say your health is? GoodAssessment & Plan Problems:Assessed:Hypertensive chronic kidney disease with stage 1 through stage 4 chronic kidney disease, or unspecified chronic kidney disease (OLM68-X08.9) Assessment: Instructions: Continue as scheduled with nephrology.Please call this clinic tomorrow to give home med list to my nurse for review. Hospital med list reflected in today's med list.Nausea (ICD-787.02) (LLP61-O44.0) Assessment: Instructions: Zofran as needed. Increase oral fluid and healthy food intake to prevent dehydration and readmission.Hyperuricemia (ICD-790.6) (WLJ09-U54.0) Assessment: Instructions: Refilled allopurinol which was restarted by nephrology.Essential hypertension (ICD-401.9) (GHY50-F85) Assessment: Instructions: Follow-up as scheduled with Dr. Garvin on Sunday.Colostomy status (ICD-V44.3) (LQB75-Q57.3) Assessment: Instructions: Refills have previously been sent, please call me today or tomorrow with the ostomy size. Then we will confirm with [facility] that all is in order.Patient Instructions/Care Plan: Hypertensive chronic kidney disease with stage 1 through stage 4 chronic kidney disease- or unspecified chronic kidney disease: Continue as scheduled with nephrology.Please call this clinic tomorrow to give home med list to my nurse for review. Hospital med list reflected in today's med list.Nausea: Zofran as needed. Increase oral fluid and healthy food intake to prevent dehydration and readmission.Hyperuricemia: Refilled allopurinol which was restarted by nephrology.Essential hypertension: Follow-up as scheduled with Dr. Garvin on Sunday.Colostomy status: Refills have previously been sent, please call me today or tomorrow with the ostomy size. Then we will confirm with [facility] that all is in order. Plan developed in collaboration with patient and/or familyMedications:AMIODARONE HCL 200 MG ORAL TABLETALLOPURINOL 100 MG ORAL TABLETCOLOSTOMY WAFERS- 143563FIHMPHKGM POUCHES- [id number] 4 MG ORAL TABLET DISINTEGRATINGEQL VITAMIN D3 50 MCG (1999) ORAL CAPSULESODIUM BICARBONATE 650 MG ORAL TABLETATORVASTATIN CALCIUM 10 MG ORAL TABLETMedication Changes:Added: AMIODARONE HCL 200 MG ORAL TABLET-Take 2 tablets po BIDAMLODIPINE BESYLATE 5 MG ORAL TABLET-Take 1 tablet po dailyRefilled:ATORVASTATIN CALCIUM 10 MG ORAL TABLET- Take 1 tablet po daily Qty: 30[Tablet] Refills: 2 Method: ElectronicNew Prescription:ALLOPURINOL 100 MG ORAL TABLET-one tablet daily Qty: 30[Tablet] Refills: 2 Method: ElectronicRemoved:PROZAC 40 MG ORAL CAPSULE-1 cap PO daily, LISINOPRIL 10 MG ORAL TABLET-Take 1 tablet po daily Qty: 30[Tablet] Refil ls: 2, OMEPRAZOLE 20 MG ORAL TABLET DELAYED RELEASE-Take 1 tablet po daily in the AM on an empty stomach Qty: 30[Tablet] Refills: 1Allergies:* SEASONAL (Moderate)Orders:Adult - Ofc Vst, EST, Level IV [CPT-58713] Follow-Up Return to clinic: as needed, 1 Month for follow upClinical Visit Summary CompletedMedications:ATORVASTATIN CALCIUM 10 MG ORAL TABLET (ATORVASTATIN CALCIUM) Take 1 tablet po daily #30[Tablet] x 2 Route:ORAL Entered and Authorized by: Palomo PAZ Method used: Electronically to [facility]* ( retail) [address] [place] [address] Note to Pharmacy: Route: ORAL; Indications: MIXED HYPERLIPIDEMIA RxID: [id number] 100 MG ORAL TABLET (ALLOPURINOL) one tablet daily #30[Tablet] x 2 Route:ORAL Entered and Authorized by: Palomo PAZ Method used: Electronically to [facility]* (retail) [address] [place] [address] Note to Pharmacy: Route: ORAL; RxID: [id number] OMEPRAZOLE 20 MG ORAL TABLET DELAYED RELEASE (OMEPRAZOLE) Take 1 tablet po daily in the AM on an empty stomach #30[Tablet] x 1 Route:ORAL Entered and Authorized by: Palomo PAZ Method used: Electronically to [facility]* (retail) [address] [place] [address] RxID: [id number] LISINOPRIL 10 MG ORAL TABLET (LISINOPRIL) Take 1 tablet po daily #30[Tablet] x 2 Route:ORAL Entered and Authorized by: Palomo PAZ Method used: Electronically to [facility]* (retail) [address] [place] [address] RxID: [id number] signed by Palomo PAZ on 02/11/2020 at 1:12 PM Name Value Range Interpretation Code Description Data Bridget rce(s) Supporting Document(s) ID Date Data Source [id number] 01/12/2020 06:04:00 AM EDT [facility] 140 227 142 Name Value Range Interpretation Code Description Data Bridget rce(s) Supporting Document(s) HCT 28.1 % 36.0-47.0 L [facility] HGB 9.5 g/dL 12.0-15.5 Significant change down [facility] MCH 33.8 G/DL pg 32.0-36.5 N [facility] MCHC 30.5 PG % 27.0-33.0 N [facility] PLATELETS 226 10 10*3/mm3 150-450 Significant change down [facility] RBC 3.11 10 10*6/mm3 4.00-5.40 L [facility] RDW 14.6 % 11.5-14.5 H [facility] WBC TOTAL 11.6 4.0-10.0 H [facility] ID Date Data Source [id number] 01/12/2020 06:04:00 AM EDT [facility] 140 227 142 Name Value Range Interpretation Code Description Data Bridget rce(s) Supporting Document(s) ID Date Data Source [id number] 01/11/2020 09:44:00 PM EDT [facility] 140 227 142 Name Value Range Interpretation Code Description Data Bridget rce(s) Supporting Document(s) ID Date Data Source [id number] 01/11/2020 06:17:00 PM EDT [facility] 140 227 142 Name Value Range Interpretation Code Description Data [facility] rce(s) Supporting Document(s) ID Date Data Source [id number] 01/07/2020 02:07:43 PM EDT [facility] Measurements & CalculationsHeight: 60 inches (5 ft. 0 in.) 152.40 cm Weight: 123.4 pounds 56.09 kg Body Mass Index (BMI): 24.19BMI Interpretation: Healthy WeightBody Surface Area (BSA): 1.52Vital SignsTemperature: 98.6F 37C tympanic Pulse Rate: 89 beats/minuteRespiratory Rate: 18 respirations/minuteBlood Pressure: 103/57 right arm sitting automaticO2 Saturation: 98% Vital Signs performed by: Chacha Gary LPN, January 07, 2020 2:09 PMInitial Intake Information From: patientRoom #: 1Infectious Disease / Travel ScreeningRecent travel for you or any close contacts? NoHave you had any close contact with anyone diagnosed with or under investigation for COVID-19 (coronavirus)? NoFever? NoRespiratory symptoms: cough, cold, congestion, shortness of breath, difficulty breathing? NoLoss of smell? NoLoss of taste? NoSmoking, Tobacco, Vaping or Smoke Exposure StatusSmoke Status: former smokerTobacco Use: NoDo you vape? NoPassive Smoke Exposure: NoMenstrual HistoryAny possibility of ? NoHealthcare HistorySince your last office visit...Have you been admitted to the hospital? Yes - kidneyHospital admission date reported today: 12/25/2019Have you been to an emergency room (ER) or urgent care clinic? NoHave you seen another healthcare provider? YesHave you seen a dentist? NoIntake performed by: Chacha Gary LPN, January 07, 2020 2:09 PMRate Your HealthIn general, would you say your health is? PoorPain AssessmentAre you currently having any pain which... You would like your provider to address? No Affects your activity level? NoDepression Screening - PHQ-2Over the last two weeks, have you... Had little interest or pleasure in doing things? More than half the days Been feeling down, depressed, or hopeless? More than half the days PHQ-2 Score: 4Anxiety Screening - KAYLI-2Over the last two weeks, have you been... Feeling nervous, anxious, or on edge? More than half the days Unable to stop or control worrying? More than half the days KAYLI-2 Score: 4Food InsecurityWithin the past year...Did you worry whether your food would run out before you got money to buy more? Never trueWas there a time when the food you bought didn't last and you didn't have money to get more? Never trueGeneralized Anxiety Disorder 7-Item Screening (KAYLI-7)Answer Guide:0 = Not at all1 = Several days2 = Over half the days3 = Nearly every dayOver the last 2 weeks, how often have you been bothered by the following problems?Feeling nervous, anxious, or on edge: 2Not being able to stop or control worryinWorrying too much about different things: 2Trouble relaxinBeing so restless that it's hard to sit still: 2Becoming easily annoyed or irritable: 2Feeling afraid as if something awful might happen: 2Answer Guide:0 = Not difficult at all1 = Somewhat difficult2 = Very difficult3 = Extremely difficultHow difficult have these made it for you to do your work, take care of things at home, or get along with other people? 2GAD-7 Screening Results KAYLI-2 Score: 4GAD-7 Score: 14Functional Impairment: Very difficultRecommendation: Moderate anxietyPHQ-9 1. Over the last 2 weeks, patient reports the following frequency of symptoms: a. Little interest or pleasure in doing things -More than half the days b. Feeling down, depressed, or hopeless - More than half the days c. Trouble falling asleep, staying asleep, or sleeping too much -More than half the days d. Feeling tired or having little energy -More than half the days e. Poor appetite or overeating -More than half the days f. Feeling bad about yourself, feeling that you are a failure, or feeling that you have let yourself or your family down -More than half the days g. Trouble concentrating on things such as reading the newspaper or watching television -More than half the days h. Moving or speaking so slowly that other people could have noticed. Or being so fidgety or restless that you have been moving around a lot more than usual -More than half the days i. Thinking that you would be better off or that you want to hurt yourself in some way -Not at all2. If you checked off any problems, how difficult have these problems made it for you to do your work, take care of things at home, or get along with other people? -Very DifficultToday's PHQ-9 Results Score: 16 Severity: Moderately Severe Diagnosis Recommendation: Major Depression Functional Impairment: Very DifficultToday's Follow-Up Action Depression follow-up done. Follow-Up Action: Continue to monitorScreening, Brief Intervention, & Referral to Treatment (SBIRT)Pre-Screening Questions How many times have you have 4 or more drinks in a day? 0How many times have you used an illegal drug or used a prescription medication for a non-medical reason? 0Performed by: Chacha Gary LPN, January 07, 2020 2:11 PMPatient History Medical History:Ulcerative Colitis s/p coloscomyHypertensionSurgical History:patrial colectomy-complete colectomy with colostomy-2007Family History:Cancer - Unknown (Brother)Heart disease (Father)Social/Personal History: Chief Complaintfollow-up visitHistory of Present Illness (HPI)74 yo female presents for [facility] hosp d/c. Accompanied by her niece today.Pt was admitted to [facility] 12/25/2019-12/30/2019 for acute kidney injury. This was believed to be secondary to possible pyelonephritis, ACEi and Allopurinol. Pt does follow with nephrology regularly outpatient. The ACEi was resumed inpatient but the allopurinol was left to PCP discretion. However, nephrology started patient on allopurinol on 11/21/2019, not this office. Pt feels improved, still somewhat weak. Admits to poor appetite, but is trying to remain well hydrated. Denies diarrhea/vomiting, fever, abdominal pain. Pt needs refill of her colostomy supplies to [facility]. Transitions of Care InboundProblem ReviewProblem List was reviewed and/or updated during this visit.Medication Reconciliation & ReviewMedication List was reviewed and/or updated during this visit, including review of any bcap-dqj-unigydx medications, herbal therapies, and/or supplements.Allergy ReviewAllergy List was reviewed and/or updated during this v isit.Review of Systems General: Complains of see HPI, loss of appetite, fatigue. Denies chills, dizziness, fever. Cardiovascular: Denies chest pain, palpitations, feeling faint, peripheral edema. Respiratory: Denies cough, difficulty breathing, shortness of breath. Gastrointestinal: Denies nausea, vomiting, diarrhea, constipation, pain or discomfort, blood in stool. Genitourinary: Denies pain with urination, burning with urination, urinary frequency, urinary hesitancy, urinary urgency, blood in urine. Skin: Denies rash, redness. Neurologic: Denies feeling faint. Physical ExamGeneral Appearan ce: well nourished, well hydrated, no acute distressEyes, External: conjunctivae and lids normal, EOMIRespiratory, Auscultation: clear to auscultation bilaterally; no rales, rhonchi, or wheezesCardiovascular, Auscultation: S1, S2 audible; no murmur, rub, or gallop; RRRPeripheral Circulation: no clubbing, cyanosis, edema, or varicosities, good skin turgorAbdomen: soft, non-tender, no masses, bowel sounds normal, colostomy in place without surrounding erythemaGait & Station: normalSkin, Inspection: no rashes, lesions, or ulcerationsOrientation: oriented to time, place, and personMood & Affect: somewhat flat affect, speech clear, good eye contactJudgment & Insight: intactCare Management Plan Transitions of CareInboundRate Your HealthIn general, would you say your health is? PoorAssessment & Plan Problems:Added: Nausea (ICD-787.02) (RYM36-B59.0) Assessment: Instructions: Zofran as needed for nausea.Assessed:Hypertensive chronic kidney disease with stage 1 through stage 4 chronic kidney disease, or unspecified chronic kidney disease (IEI10-G21.9) Assessment: Instructions: Recheck labs on Sunday01/13/2020, nonfasting. Will CC to nephrology. Sips of fluids throughout the day, avoid/prevent dehydration. Discuss allopurinol with nephrology, do not restart at this time.Acidosis (ICD-276.2) (EOW44-E00.2) Assessment: Instructions: Continue meds per nephrology.Hyperuricemia (ICD-790.6) (IZD15-P56.0) Assessment: Instructions: As above regarding allopurinol.Colostomy status (ICD-V44.3) (NMC86-Q03.3) Assessment: Instructions: Refills will be sent to [facility].Patient Instructions/Care Plan: Hypertensive chronic kidney disease with stage 1 through stage 4 chronic kidney disease- or unspecified chronic kidney disease: Recheck labs on Sunday01/13/2020, nonfasting. Will CC to nephrology. Sips of fluids throughout the day, avoid/prevent dehydration. Discuss allopurinol with nephrology, do not restart at this time.Acidosis: Continue meds per nephrology.Hyperuricemia: As above regarding allopurinol.Nausea: Zofran as needed for nausea.Colostomy status: Refills will be sent to [facility]. Plan developed in collaboration with patient and/or familyMedi cations:ONDANSETRON 4 MG ORAL TABLET DISINTEGRATINGEQL VITAMIN D3 50 MCG (1999 [place]) ORAL CAPSULESODIUM BICARBONATE 650 MG ORAL TABLETLISINOPRIL 10 MG ORAL TABLETOMEPRAZOLE 20 MG ORAL TABLET DELAYED RELEASEATORVASTATIN CALCIUM 10 MG ORAL TABLETPROZAC 40 MG ORAL CAPSULEMedication Changes:New Prescription:ONDANSETRON 4 MG ORAL TABLET DISINTEGRATING-Take 1 tablet po q 6 hrs prn nausea; MDD 3 tablets Qty: 90[Tablet] Refills: 1 Method: ElectronicRemoved:ALLOPURINOL 100 MG ORAL TABLET-Take 1 tablet po dailyAllergies:* SEASONAL (Moderate)Orders:Adult - Ofc Vst, EST, Level IV [CPT- 77219] Follow-Up Return to clinic: as needed, as scheduled Clinical Visit Summary Completed Name Value Range Interpretation Code Description Data Bridget rce(s) Supporting Document(s) ID Date Data Source [id number] 12/29/2019 08:37:00 AM EDT [facility] [address] [place] [address] PHONE: [phone] FAX: [phone] Name .................. : WORKMAN JENNIFER Bauman Acct Number.................. : [id number] ROOM. ................. : TR-07 Number ................... : [id number] Stay type ............. : E/R Discharge Date......... ... : 12/25/19 Admit Date ... ...... : 12/25/19 Admit Phys .................... : COONEYNORM Date of ....... : 1945 Family Phys ................... : VARUN WADE Phone .................. : [phone] Age ................................ : 74 Film# .................. .:[id number] Sex ................................. : F Unsigned transcriptions are preliminary reports and do not represent a medical or legal document CHEST 2 VIEWS 39584 COMPLETE:12/25/19 15:32 [facility] [id number] Reason(s): weakness CHEST X-RAY: 2-VIEWS INDICATION: Weakness. COMPARISON: 12/08/14 FINDINGS: The cardiac and mediastinal silhouettes appear normal and the lungs are clear. The bones and soft tissues are normal. The upper abdomen is unremarkable. IMPRESSION: No acute disease identifiable. Electronically Reviewed and Signed By Oskar Fuller MD , 12/29/19 08:37, SHAN Transcribe Initials: DZ , Transcribe Date: 12/25/19 20:41, Dictation Date: Copy for: ENEDELIA EATON via fax Copy for: EMERGENCY DEPT via modem Copy for: 710 MED REC DISCHARGED Page 1 of 1 Name Value Range Interpretation Code Description Data Bridget rce(s) Supporting Document(s) ID Date Data Source [id number] 12/26/2019 11:27:[place] [address] PHONE: [phone] FAX: [phone] Name .................. : WORKMAN JENNIFER Bauman Acct Number.................. : [id number] ROOM. ................. : TR-07 Number ................... : [id number] Stay type ............. : E/R Discharge Date......... ... : 12/25/19 Admit Date ......... : 12/25/19 Admit Phys .................... : COONEYNORM Date of ....... : 1945 Family Phys ................... : VARUN WADE Phone .................. : [phone] Age ................................ : 74 Film# .................. .:[id number] Sex ................................. : F Unsigned transcriptions are preliminary reports and do not represent a medical or legal document GALLBLADDER [id number] COMPLETE:12/25/19 16:48 ADB 73268 Reason(s): N/V abd pain GALLBLADDER ULTRASOUND: INDICATION: Nausea and vomiting, abdominal pain. FINDINGS: There is normal sonographic appearance of the liver, pancreas and right kidney. The aorta and IVC are normal in caliber. No gallstones or gallbladder wall thickening. The common bile duct measures 1 mm in diameter. The portal vein is patent. Resistive indices in the right mid-kidney are elevated at 0.94. IMPRESSION: No evidence of cholelithiasis or cholecystitis. Increased resistive index of the right kidney. Electronically Reviewed and Signed By Miguel A Hampton M.D. , 12/26/19 11:27, [facility] Transcribe Initials: KJ , Transcribe Date: 12/25/19 19:51, Dictation Date: Copy for: ENEDELIA EATON via fax Copy for: EMERGENCY DEPT via modem Copy for: 710 MED REC DISCHARGED Page 1 of 1 Name Value Range Interpretation Code Description Data Bridget rce(s) Supporting Document(s) ID Date Data Source [id number] 12/26/2019 03:48:00 AM EDT [facility] [address] [place] [address] RESPIRATORY CARE REPORT ==== ---------NAME------- NUMBER SEX AGE ADMIT DISC. XRAY# F/C JONATHAN Bauman [id number] F 74 12/25/19 12/25/19 [id number] MB8 E/R DATE OF : 1945 M/R# [id number] #: [id number] TR-07 LOCATION: EMERGENCY DEPT EKG [id number] COMPLE TE:12/25/19 16:03 M [id number] PHYSICIAN: JHON TARIQ Name Value Range Interpretation Code Description Data Bridget rce(s) Supporting Document(s) ID Date Data Source [id number] 12/25/2019 01:46:00 PM EDT [facility] 1 OrderSheet [facility] Emergency Department [address] [place] [address] Phone #: [phone] 12/25/2019 13:46 Patient: JENNIFER WORKMAN Sex: F : 1945 Age: 74yWEIGHT:58.6 kg (M) HEIGHT:65 inches (E) BMI:21.5ALLERGIES: No Known Drug AllergyCHIEF COMPLAINT: vomiting, nausea, abdominal crampsDIAGNOSIS: Hyponatremia, Hyperkalemia, Disorder of gallbladder, Renal failure syndromeLAB ORDERSOrder Description Priority Entered Acknowledged InitialedCBC w Diff STAT 14:47 12/25/2019 14:48 Yvette Sethi R.N.;CMP STAT 14:47 12/25/2019 14:48 Yvette Sethi R.N.;Lactic Acid STAT 14:47 12/25/2019 14:48 Yvette Sethi R.N.;Lipase STAT 14:47 12/25/2019 14:48 Yvette Sethi R.N.;PT/INR STAT 14:47 12/25/2019 14:48 Yvette Sethi R.N.;PT/PTT STAT 14:47 12/25/2019 14:48 Yvette Sethi R.N.;Urinalysis (Clean STAT 14:47 12/25/2019 16:07 Jossie,Catch) Yvette PAZ;Troponin-T STAT 14:47 12/25/2019 14:48 Yvette Sethi R.N.;Sodium Urine STAT 15:38 12/25/2019 16:07 Yvette Sethi R.N.;Creatinine Urine STAT 15:38 12/25/2019 16:07 Yvette Sethi R.N.;BMP STAT 17:20 12/25/2019 17:35 Jossie, 2 OrderSheet [facility] Emergency Department [address] [place] [address] Phone #: ext- [phone] 12/25/2019 13:46 Patient: JENNIFER WORKMAN Sex: F : 1945 Age: 74y Yvette PAZ;DIAGNOSTIC STUDY ORDERSOrder Description Priority Entered Acknowledged InitialedChest 2 View STAT 14:47 12/25/2019 14:48 Jossie(Oxygen?(No)) Yvette PAZ; Reason for Study: weaknessUS Gall Bladder STAT 15:42 12/25/2019 16:07 [place](Oxygen?(No)) Yvette Escalante magazine keeperDandy; Tech1 Reason for Study: N/V abd painMEDICATION/IV/DRIP/FLUID ORDERSOrder Description Priority Entered Acknowledged InitialedNS IV : 1000 mL/hr 14:47 12/25/2019 15:03 Yvette Sethi R.N. PA;Zofran 4 mg IVP X 1 14:47 12/25/2019 15:04 Jossie,dose: 4 mg (NOW Yvette Santana R.N.x1) PA;D50W IVP 50 mL 15:37 12/25/2019 16:06 Jossie,(NOW x1) Yvette Sherman.N. PA;Insulin Reg IVP 10 15:37 12/25/2019 16:07 Jossie,units (HIGH ALERT Yvette Santana R.NIvonMEDICATION) PA;Calcium Gluconate 15:37 12/25/2019 16:36 Jossie,IVPB 1000 Yvette Sherman.Juan Albertomg/50mL (NOW x1) PA;Zosyn- IVPB 3.375 16:20 12/25/2019 17:35 Jossie,gm (in 50 mL D5W, Yvette Santana R.N.X1) PA;Levophed Drip IV : 18:22 12/25/2019 18:40 Jossie,5mcg/kg/min (HIGH Yvette Santana R.N.ALERT PA;MEDICATION)GENERAL ORDERSOrder Description Priority Entered Acknowledged InitialedCardiac Monitor 14:47 12/25/2019 14:48 Jossie,(continuous) Yvette Santana R.N. 3 OrderSheet [facility] Emergency Department [address] [place] [address] Phone #: ext- [phone] 12/25/2019 13:46 Patient: JENNIFER WORKMAN Sex: F : 1945 Age: 74y PA;EKG 14:47 12/25/2019 14:48 Yvette Sethi R.N.;NPO 14:47 12/25/2019 14:48 Yvette Sethi R.N.;Obtain Old EKG 14:47 12/25/2019 14:48 Yvette Sethi R.N.;Saline Lock 14:47 12/25/2019 14:48 Yvette Sethi R.N.;Renee Catheter 15:37 12/25/2019 16:07 Yvette Sethi R.N.;[Electronically signed by Max Sethi R.N. (19:27 12/25/2019)][Electronically signed by Yvette Escalante (22:17 12/25/2019)][Electronically locked by Max Sethi R.N. (19:27 12/25/2019)] Name Value Range Interpretation Code Description Data Bridget rce(s) Supporting Document(s) ID Date Data Source [id number] 12/25/2019 01:46:00 PM EDT [facility] 1 Medication Reconciliation Report [facility] Emergency Department [address] [place] [address] Phone #: ext- [phone] 12/25/2019 13:46 Patient: JENNIFER WORKMAN Sex: F : 1945 Age: 74yWeight: 58.6 kgHeight/Length: 65 in.BMI: 21.5ALLERGIES: No Known Drug AllergyThe patient's Home Medications are listed below:THE FOLLOWING MEDICATIONS NEED TO BE RECONCILED: Allopurinol Oral 100 mg, daily Atorvastatin Calcium Oral 10 mg, daily FLUoxetine HCl Oral 40 mg, daily Lisinopril Oral 10 mg, daily Patient poor historian PROzac Oral (40 mg) 1 capsule, dailyThe source(s) of the original Home Medication information:Not obtained.The following Medications were given to the patient in the Emergency Department:NS [IV] IV Fluids bolus 0, then 1000 mL/hr, administered: 12/25/2019 3:03:00 PMZofran [IVP] IVP 4 mg, administered: 12/25/2019 3:04:00 PMD50W [IVP] IVP 25 gm, administered: 12/25/2019 4:06:00 PMInsulin REG [IVP] IVP 10 unit, administered: 12/25/2019 4:07:00 PMCalcium Gluconate [IVP] IVP 1 gm, administered: 12/25/2019 4:36:00 PMZosyn [IVPB] IVPB bolus 0, then 3.375 gm 100 mL/hr, administered: 12/25/2019 5:35:00 PM 2 Medication Reconciliation Report [facility] Emergency Department [address] [place] [address] Phone #: ext- [phone] 12/25/2019 13:46 Patient: JENNIFER WORKMAN Sex: F : 1945 Age: 74yLevophed [IV DRIP] Drip IV bolus 0, then 4 mcg 0.5 mcg/min, administered: 12/25/2019 6:40:00 PMThe following Medications were prescribed to the patient:None. Name Value Range Interpretation Code Description Data Bridget rce(s) Supporting Document(s) ID Date Data Source [id number] 12/25/2019 01:46:00 PM EDT [facility] 1 Medication Administration Record [facility] Emergency Department [address] [place] [address] Phone #: [phone] 12/25/2019 13:46 Patient: JENNIFER WORKMAN Sex: F : 1945 Age: 74yWeight: 58.6 kgHeight/Length: 65 inBMI: 21.5ALLERGIES: No Known Drug Allergy Date/Time Medication Administered Medication OrderedStart NS [IV] NS IV : 1000 mL/hr15:03 12/25/2019 Dose: IV FluidsMax Sethi R.N. Rate: 1000 mL/hr over 60 minute(s)---- Dispensed: 1000 mL bagStop Site: #1 left AC16:35 12/25/2019Max Sethi R.N.Given ZOFRAN [IVP] (ONDANSETRON HCL) Zofran 4 mg IVP X 1 dose: 4 mg15:04 12/25/2019 Dose: 4 mg IVP (NOW x1) Max Sethi R.N. Site: #1 left ACGiven D50W [IVP] D50W IVP 50 mL (NOW x1)16:06 12/25/2019 Dose: 25 gm IVPGMax hinojosa R.N. Site: #2 right ACGiven INSULIN REG [IVP] Insulin Reg IVP 10 units (HIGH16:07 12/25/2019 Dose: 10 unit IVP ALERT MEDICATION)Max Sethi R.N. Site: #2 right ACGiven CALCIUM GLUCONATE [IVP] Calcium Gluconate IVPB 243862:36 12/25/2019 Dose: 1 gm IVP mg/50mL (NOW x1)Max Sethi R.N. Site: #2 right ACStart ZOSYN [IVPB] (PIPERACILLIN Zosyn- IVPB 3.375 gm (in 50 mL17:35 12/25/2019 SOD-TAZOBACTAM SO) D5W, X1)Max Sethi R.N. Dose: 3.375 gm IVPB---- Rate: 100 mL/hr over 30 minute(s)Stop Dispensed: 50 mL bag18:58 0 12/25/2019 Site: #1 left Max Hernandez R.N.Start LEVOPHED [IV DRIP] Levophed Drip IV : 5mcg/kg/min18:40 12/25/2019 (NOREPINEPHRINE BITARTRATE) (HIGH ALERT MEDICATION)Max Sethi R.N. Dose: 4 mcg Drip IV---- Rate: 0.5 mcg/min over 16.6 hour(s)Stop Dispensed: 500 mL bag19:24 12/25/2019 Site: #2 right Max Hernandez R.N. Name Value Range Interpretation Code Description Data Bridget rce(s) Supporting Document(s) ID Date Data Source [id number] 12/25/2019 01:46:00 PM EDT [facility] 1 General Instructions [facility] Emergency Department [address] [place] [address] Phone #: ext- [phone] 12/25/2019 13:46 Patient: JENINFER WORKMAN Sex: F : 1945 Age: 74yGallbladder disease with multiple calculi in the gallbladder. No obstruction.Acute renal failure.HyperkalemiaHyponatremia ADDITIONAL INFORMATIONHyperkalemiaHyperkalemia is too much potassium in the blood. This most often occurs in people who take certainmedicines or people with kidney disease.This condition often has no symptoms until levels of potassium become high. If symptoms do occur,they include muscle weakness and changes in the heartbeat. A blood test is done to diagnose theproblem. An ECG (electrocardiogram) may also be done to test the heartbeat.If hyperkalemia is caused by a medicine, the healthcare provider may lower the dose or switch to adifferent medicine. A low-potassium diet may also be prescribed.Home care Be sure your healthcare provider knows about all of the medicines you take. Follow your healthcare provider's advice about making changes to your medicines. If a low-potassium diet has been prescribed, follow this closely. If you need help, ask to be referred to a dietitian for advice on how to follow this diet.Follow-up careFollow up with your healthcare provider. You may need a repeat blood test within the next 7 days.Schedule this as advised.When to seek medical adviceCall your healthcare provider right away if any of the following occur: Weakness, dizziness, or lightheadedness Nausea, vomiting, or diarrhea 2 General Instructions [facility] Emergency Department [address] [place] [address] Phone #: ext- [phone] 12/25/2019 13:46 Patient: JENNIFER WORKMAN Sex: F : 1945 Age: 74y Urinating only in small amounts or not urinating Symptoms don't go away or get worseCall 911Call 911 if any of the following occur: Fast or irregular heartbeat Fainting Severe shortness of breath Chest, arm, shoulder, neck or upper back pain Trouble controlling your muscles [phone] [employer]. [address] [place] [address]. All rights reserved. This information is not intended as asubstitute for professional medical care. Always follow your healthcare professional's instructions.HyponatremiaHyponatremia means low sodium levels in the blood. This condition most often occurs after prolongedvomiting or diarrhea, which causes your body to lose too much water and sodium. It can also resultfrom drinking excess amounts of water or the use of diuretics (water pills). Rarely, it can beassociated with disorders of your endocrine system, as side effects of illicit drug use (ecstasy), as acomplication of some cancers especially small cell lung cancer, or as a complication of renal and liverdisease or heart failure.Mild hyponatremia causes no symptoms. It is only discovered with a blood test. As sodium levels inthe blood decreases, symptoms begin to appear. This includes weakness, confusion, musclecramping and seizures.Home care Reduce your daily water intake until the problem is corrected. If you have been taking diuretics, you may be asked to stop taking them for a short time. If you are having symptoms of weakness or confusion, do not drive or operate dangerous machinery until symptoms resolve. If your sodium levels are too low to be managed at home with the above recommendations, you will be asked to go to the hospital to have your sodium replaced through your vein.Follow-up care 3 General Instructions [facility] Emergency Department [address] [place] [address] Phone #: ext- [phone] 12/25/2019 13:46 [id number] Sex: F : 1945 Age: 74yFollow up with your healthcare provider for a repeat blood test within the next week, or as advised.When to seek medical adviceCall your healthcare provider if any of the following occur: Increasing weakness Dizziness Irregular heartbeat, extra beats or very fast heart rate Increasing confusion Fainting or loss of consciousness Seizure [phone] [employer]. [address] [place] [address]. All rights reserved. This information is not intended as asubstitute for professional medical care. Always follow your healthcare professional's inst ructions. You have been given the following additional information: Hyperkalemia Hyponatremia(Electronically signed by JACKSON Solorzano 12/25/2019 22:17) Name Value Range Interpretation Code Description Data Bridget rce(s) Supporting Document(s) ID Date Data Source [id number] 12/25/2019 01:46:00 PM EDT [facility] 1 Clinical Report - Nurses [facility] Emergency Department [address] [place] [address] Phone #: ext- [phone] 12/25/2019 13:46 [facility]IFER WORKMAN [id number] Sex: F : 1945 Age: 74yTRIAGEArrived by private vehicle. Historian: patient.Acuity: LEVEL 3.Chief Complaint: (GENERAL WEAKNESS).Onset. (6 days ago). 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 Sepsis Screen negative. No suspected or confirmed signs ofinfection present. --13:51 12/25/19 Tavares Jones RN13:47 12/25/19. BP: 104/70. MAP: 81. HR: 78. RR: 18. O2 saturation: 99% on room air. Temp: 96.9 F.Pain level now: 0/10. --13:51 12/25/19 Tavares Jones RN.Weight: 58.6 kg measured. Height/Length: 65 inches Estimated. BMI: 21.5. --13:47 12/25/19 Tavares Jones RN.MedicationsAllopurinol Oral 100 mg, daily. Atorvastatin Calcium Oral 10 mg, daily. FLUoxetine HCl Oral 40 mg, daily. Lisinopril Oral 10 mg, daily. Patient poor historian. PROzac Oral (Capsule 40 mg) 1 capsule, daily. --13:49 12/25/19 Tavares Jones RN.AllergiesNo Known Drug Allergy. --13:49 12/25/19 Tavares Jones RN.HistoryPAST MEDICAL HX: Immunizations: up-to-date. The patient is post-menopausal.SOCIAL HX: Never smoker. No alcohol use or drug use. She was offered HIV testing but declined andhepatitis C testing but declined. She has not traveled outside the [place]Infectious disease exposure: No infectious disease exposure. The patient was not exposed to Coronavirus.SELF HARM ASSESSMENT: Self harm assessment was performed. The patient answered "no" to thequestion(s) "Have you recently felt down, depressed, or hopeless?", "Do you have thoughts of harming or 2 Clinical Report - Nurses [facility] Emergency Department [address] [place] [address] Phone #: ext- [phone] 12/25/2019 13:46 Patient: JENNIFER WORKMAN Sex: F : 1945 Age: 74y killing yourself?", "Do you have a plan for harming or killing yourself?", "Have you recently had thoughts about harming or killing others?", "Do you have any dangerous items in your possession?", "Have you noticed less interest or pleasure in doing things?", "Are you here because you tried to hurt yourself?" and "Have you ever tried to hurt yourself before today?". ABUSE ASSESSMENT: No report of abuse. NUTRITIONAL RISK ASSESSMENT: The nutritional risk assessment revealed no deficiencies. FUNCTIONAL ASSESSMENT: Functional assessment: no impairments noted. LEARNING NEEDS ASSESSMENT: The learning needs assessment revealed no barriers. FALL RISK ASSESSMENT: Fall risk assessment completed. No risk factors identified. SKIN INTEGRITY ASSESSMENT: Skin integrity risk assessment completed. No skin integrity risk identified. --13:51 12/25/19 Tavares Jones RN. Interventions To treatment room. --13:51 12/25/19 Tavares Jones RN.PHYSICAL ASSESSMENTTo room via wheelchair. ( c/o significant weakness today. PB 80's/40's Confirmed with brianda).GENERAL / NEURO / PSYCH: Alert. Oriented X 4.RESPIRATORY: Respirations not labored.SKIN: Skin is warm and dry. --15:05 12/25/19 Max Sethi R.N.NURSING PROGRESS NOTES14:38 12/25/2019 Site #1 started via IV in the left antecubital space; four attempts. Blood drawn: rainbowset. Saline lock flushed with 3 mL saline. --15:03 12/25/19 Max Sethi R.N. 15:03 12/25/2019 Started bag #1 1000 mL IV Fluids NS; at 1000 mL/hr over 60 minute(s) via site #1 --15:03 12/25/19 Max Sethi R.N. 15:04 12/25/2019 Zofran (Ondansetron HCl) IVP 4 mg given over 3 minute(s) via site #1. --15:04 12/25/19 Max Sethi R.N. 15:05 12/25/19. BP: 86/42. MAP: 56. HR: 74. RR: 20. O2 saturation: 95%. Temp: deferred. Pain level now: 0/10. --15:06 12/25/19 Max Sethi R.N. 15:12/25/2019 Site #2 started via IV in the right antecubital space with an 20g angiocath; one attempt. --15:12/25/19 Max Sethi R.N. ( Pt color improved and states she is feeling better). --15:12/25/19 Max Sethi R.N. 3 Clinical Report - Nurses [facility] Emergency Department [address] [place] [address] Phone #: ext- [phone] 13:46 Patient: JENNIFER WORKMAN Sex: F : 1945 Age: 74y15:27 12/25/19. Critical value relayed by Joe Begum (15:27 12/25/2019). Critical value received by Jt VAZQUEZ (15:27 12/25/2019). CO2 8.0. K: 8.0. BUN: 101. Creatinine: 13.7. Critical value readback. Verified lab result and patient ID. PA notifed of critical value (Yvette PAZ).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 [facility] Basophils/100 leukocytes in Blood by Automated count 0.6 % 0.0 - 2.5 [facility] %IG 0.6 % 0.0 - 0.0 H [facility] al %NRBC 0.0 % 0.0 - 0.0 [facility] Neutrophils [#/volume] in Blood by Automated count 7.27 10^3/uL 2.00 - 6.90 H [facility] Lymphocytes [#/volume] in Blood by Automated count 1.14 10^3/uL 0.60 - 3.40 [facility] Monocytes [#/volume] in Blood by Automated count 0.55 10^3/uL 0.00 - 0.90 [facility] Eosinophils [#/volume] in Blood by Automated count 0.01 10^3/uL 0.00 - 0.70 [facility] Basophils [#/volume] in Blood by Automated count 0.05 10^3/uL 0.00 - 0.20 [facility] #IG 0.05 10^3/uL 0.00 - 0.10 [facility] #NRBC 0.00 10^3/uL 0.00 - 0.00 [facility] MANUAL DIFF NOT INDICATED [facility] RBC MORPH NOT INDICATED [facility] spital ID Date Data Source [id number] 12/30/2019 06:52:00 AM EDT [facility] Name Value Range Interpretation Code Description Data Bridget rce(s) Supporting Document(s) CULTURE URINE [facility] _CULTURE URINE_$$[id number]$$132196$$302199$$047257$$414215$$982040$$033303$$912239$$246249$$ 691992$$047772$$182620$$624532$$098120$$940751$$134606$$298362$$485718$$554499$$ 245136$$494425$$227199$$031154$$967089$$354686$$[id number]$$[id number] -- Continued on next page --Patient: JI Bauman Order: [id number] Page 2Culture: CULTURE URINE Status: Final ==== -- Continued on next page --Patient: JI Bauman Order: [id number] Page 2Culture: CULTURE URINE Status: Prelim =====$$[id number]$$[id number] DATE/TIME: 12/29/2019 14:06Culture: CULTURE URINE Status: FinalUrine Culture,Comprehensive: P1No growth in 36 - 48 hours. Previous result entered on 12/28/2019 08:13 ET No growth after 18-24 hours.P1 Test performed by: [facility] Cherie MÁRQUEZ #: [id number] [address] [place] [address] [id number] [facility] [id number] Director : Jj Pulido MD NPI #:Lab Kayley molly : 12/29/19.0821.XMT.SENT REF 12/30/19.0653.XMT.SENT REF ID Date Data Source [id number] 12/25/2019 04:25:00 PM EDT [facility] Value Range Interpretation Code Description Data Bridget rce(s) Supporting Document(s) CREAT UR 965.7 MG/DL 0.0 - 30.0 H [facility] ID Date Data Source [id number] 12/25/2019 04:25:00 PM EDT [facility] Name Value Range Interpretation Code Description Data Bridget rce(s) Supporting Document(s) SODIUM UR 27 mEq/L 40 - 220 L [facility] al ID Date Data Source [id number] 12/25/2019 04:24:00 PM EDT [facility] Name Value Range Interpretation Code Description Data Bridget rce(s) Supporting Document(s) URINALYSIS [facility] Hospi gurinder URINALYSIS SOURCE R [facility] COLOR yellow NORMAL: Yellow [facility] CLARITY turbid NORMAL: Clear [facility] spital Specific gravity of Urine by Test strip 1.030 1.001 - 1.030 [facility] pH 5 5 - 9 [facility] Glucose [Mass/volume] in Urine by Test strip NORM NORMAL: Negat [facility] Bilirubin.total [Presence] in Urine by Test strip 1 NORMAL: Negative [facility] Ketones [Presence] in Urine by Test strip 5 NORMAL: Negative [facility] Protein [Mass/volume] in Urine by Test strip 30 NORMAL: Negat [facility] Nitrite [Presence] in Urine by Test strip NEG NORMAL: Negative [facility] BLOOD 250 NORMAL: Negative [facility] Leukocyte esterase [Presence] in Urine by Test strip 500 DESI L: Negative [facility] Urobilinogen [Mass/volume] in Urine by Test strip NOR less matt n 1.0 mg/dL [facility] MICROSCOPIC See Below [facility] ital WBC 30 - 40 NORMAL: NONE SEEN A [facility] Erythrocytes [#/volume] in Urine by Test strip 5 - 7 NORMAL: NON E SEEN A [facility] EPITHELIAL MODERATE NORMAL: NONE SEEN A [facility] Bacteria [Presence] in Urine sediment by Light microscopy 1+ SMALL NORMAL: NONE SEEN [facility] Amorphous sediment [Presence] in Urine sediment by Light manoj roscopy 1+ NORMAL: NONE SEEN [facility] Casts [#/area] in Urine sediment by Microscopy low power field See Be low [facility] Hyaline casts [#/area] in Urine sediment by Microscopy low p ower field 3-5 NORMAL: None Seen A [facility] Fine Granular Casts [#/area] in Urine sediment by Micr oscopy low power field 1-3 NORMAL: None Seen A [facility] ID Date Data Source [id number] 12/25/2019 03:28:00 PM EDT [facility] Name Value Range Interpretation Code Description Data Bridget rce(s) Supporting Document(s) TROPONIN T 0.02 NG/ML 0.00 - 0.10 [facility] spital TROPONIN T0.1 ng/ml Recommended as the c linical threshold value forTroponin T. ID Date Data Source [id number] 12/25/2019 03:28:00 PM EDT [facility] Name Value Range Interpretation Code Description Data Bridget rce(s) Supporting Document(s) Lipase [Enzymatic activity/volume] in Serum or Plasma 404 U/L 13 - 60 H [facility] ID Date Data Source [id number] 12/25/2019 03:19:00 PM EDT [facility] Name Value Range Interpretation Code Description Data Bridget rce(s) Supporting Document(s) COMPREHENSIVE METABOLIC PANEL [facility] COMPREHENSIVE METABOLIC PANEL Sodium [Moles/volume] in Serum or Plasma 126 mEq/L 134 - 153 L [facility] Potassium [Moles/volume] in Serum or Plasma 8.0 mEq/L 3.6 - 5.0 [facility] CHA VAZQUEZ [id number] 1525 Chloride [Moles/volume] in Serum or Plasma 94 mEq/L 98 - 107 L [facility] Carbon dioxide, total [Moles/volume] in Serum or Plasma 8 MEQ/L 22 - 30 LL [facility] CHA CALDERA [id number] 1525 Glucose [Mass/volume] in Serum or Plasma 89 MG/DL 65 - 110 [facility] BUN 101 MG/DL 7 - 21 [facility] al CHA VAZQUEZ [id number] 1525 Creatinine [Mass/volume] in Serum or Plasma 13.7 MG/DL 0.7 - 1.5 HH [facility] BUN/CREAT 7 8 - 27 L [facility] al Protein [Mass/volume] in Serum or Plasma 7.9 G/DL 6.3 - 8.2 [facility] Albumin [Mass/volume] in Serum or Plasma 4.6 G/DL 3.9 - 5.0 [facility] Globulin [Mass/volume] in Serum by calculation 3.3 GM/DL 2.4 - 3.2 H [facility] A/G RATIO 1.4 0.8 - 2.0 [facility] Calcium [Mass/volume] in Serum or Plasma 9.5 MG/DL 8.4 - 10.2 [facility] Bilirubin.total [Mass/volume] in Serum or Plasma <0.7 MG/DL 0.2 - 1.3 [facility] Alkaline phosphatase [Enzymatic activity/volume] in Serum or Plasma 101 U/L 38 - 126 [facility] Aspartate aminotransferase [Enzymatic activity/volume] in Serum or Plasma 14 U/L 5 - 40 [facility] Alanine aminotransferase [Enzymatic activity/volume] in Seru m or Plasma 5 U/L 7 - 56 L [facility] Anion gap 3 in Serum or Plasma 24.0 mmol/L 8.0 - 16.0 H [facility] AGE 74 yrs [facility] NON-AA GFR [facility] A[facility] AMER GFR >60 [facility] pital Male GFR In terprentation 20-49 yrs >60 mL/min Normal 50-59 yrs >56 mL/min Normal 60-69 yrs >49 mL/min Normal 70-79yrs >42 mL/min Normal 80 and above >35 mL/min Normal Female GFR Interpretation 20-39 yrs >60 mL/min Normal 40-49 yrs >58 mL/min Normal 50-59 yrs >51 mL/min Normal 60-69 yrs >45 mL/min Normal 70-79 yrs >39 mL/min Normal 80 and above >32 mL/min Normal ID Date Data Source [id number] 12/25/2019 03:09:00 PM EDT [facility] Name Value Range Interpretation Code Description Data Bridget rce(s) Supporting Document(s) Prothrombin time (PT) 14.6 SECONDS 11.0 - 15.5 [facility] INR in Platelet poor plasma by Coagulation assay 1.13 0.93 - 1. 23 [facility] \\BLDo\\INR INTERPRETATION\\BLDx\\ Therapeutic range for Coumadin and related oral anticoagulants. - International Normalized Ratio (INR): 2.0 - 3.0 for Venous Thrombosis, Pulmonary Embolus, Tissue heart valves, Acute RI, Atrial Fibrillation, Valvular heart disease and recurrent Systemic Embolism. -International Normalized Ratio (INR): 2.5 - 3.5 for Mechanical Prosthetic valve. ID Date Data Source [id number] 12/25/2019 03:09:00 PM EDT [facility] Name Value Range Interpretation Code Description Data Bridget rce(s) Supporting Document(s) Prothrombin time (PT) 14.6 SECONDS 11.0 - 15.5 [facility] INR in Platelet poor plasma by Coagulation assay 1.13 0.93 - 1. 23 [facility] aPTT in Blood by Coagulation assay 29.7 SECONDS 24.8 - 36.7 [facility] \\BLDo\\INR INTERPRETATION\\BLDx\\ Therapeutic range for Coumadin and related oral anticoagulants. - International Normalized Ratio (INR): 2.0 - 3.0 for Venous Thrombosis, Pulmonary Embolus, Tissue heart valves, Acute RI Atrial Fibrillation, Valvular heart disease and recurrent Systemic Embolism. - International Normalized Ratio (INR): 2.5 - 3.5 for Mechanical Prosthetic valve. ID Date Data Source [id number] 12/25/2019 03:06:00 PM EDT [facility] Name Value Range Interpretation Code Description Data Bridget rce(s) Supporting Document(s) Lactate [Moles/volume] in Serum or Plasma 2.3 MMOL/L 0.2 - 2.2 H [facility] Procedure Social History Code Duration Value Status Description Data Source(s ) Alcohol intake 02/16/2021 12:00:00 AM EDT Ex-drinker (finding) comp leted Ex- drinker (finding) [facility] Alcohol intake 03/26/2020 12:00:00 AM EST Not Currently completed [facility] Smoking 03/26/2020 12:00:00 AM EST Former smoker completed Former smoker [facility] Tobacco use and exposure 01/30/2020 12:00:00 AM EDT Never used co mpleted Never used [facility] Smoking 01/30/2020 12:00:00 AM EDT Former smoker completed Former smoker [facility] Vital Signs ID Date Data Source UNK Name Value Range Interpretation Code Description Data Source(s) Systolic blood pressure 130 mm[Hg] 130 mm[Hg] [facility] Diastolic blood pressure 78 mm[Hg] 78 mm[Hg] [facility] Body mass index (BMI) [Ratio] 26.39 kg/m2 26.39 kg/m2 [facility] Oxygen saturation in Arterial blood by Pulse oximetry 96 % 96 % [facility] Heart rate 86 /min 86 /min [facility] Body height 160 cm 160 cm [facility] Body weight 67.586 kg 67.586 kg [facility] Diastolic blood pressure 87 mm[Hg] 87 mm[Hg] [place] ([facility]) Body weight 2320 [oz_av] 2320 [oz_av] [place] ([facility]) Body height 60 [in_i] 60 [in_i] [place] ([facility]) Body mass index (BMI) [Ratio] 28.3 kg/m2 28.3 k g/m2 [place] ([facility]) Systolic blood pressure 152 mm[Hg] 152 mm[Hg] A THENA ([facility]) Body height 60 [in_i] 60 [in_i] [place] ([facility]) Body height 60 [in_i] 60 [in_i] [place] ([facility]) Body height 60 [in_i] 60 [in_i] [place] ([facility]) Body height 60 [in_i] 60 [in_i] [place] ([facility]) Body height 60 [in_i] 60 [in_i] [place] ([facility]) Systolic blood pressure 102 mm[Hg] 102 mm[Hg] [facility] Diastolic blood pressure 60 mm[Hg] 60 mm[Hg] [facility] Heart rate 72 /min 72 /min [facility] Body height 160 cm 160 cm [facility] Body weight 58.06 kg 58.06 kg [facility] Body mass index (BMI) [Ratio] 22.67 kg/m2 22.67 kg/m2 [facility] Oxygen saturation in Arterial blood by Pulse oximetry 95 % 95 % [facility] Diastolic blood pressure 74 mm[Hg] 74 mm[Hg] [place] ([facility]) Body height 60 [in_i] 60 [in_i] [place] ([facility]) Body mass index (BMI) [Ratio] 25.3 kg/m2 25.3 k g/m2 [place] ([facility]) Systolic blood pressure 150 mm[Hg] 150 mm[Hg] A [facility] ([facility]) Body weight 0.4 [oz_av] 2069.4 [oz_av] ATHEN A ([facility]) Diastolic blood pressure 74 mm[Hg] 74 mm[Hg] [place] ([facility]) Body height 60 [in_i] 60 [in_i] [place] ([facility]) Body mass index (BMI) [Ratio] 25.3 kg/m2 25.3 k g/m2 [facility] ([facility]) Systolic blood pressure 150 mm[Hg] 150 mm[Hg] A [facility] ([facility]) Body weight 0.4 [oz_av] 2070.4 [oz_av] ATHEN A ([facility]) Diastolic blood pressure 74 mm[Hg] 74 mm[Hg] [place] ([facility]) Body height 60 [in_i] 60 [in_i] [place] ([facility]) Body mass index (BMI) [Ratio] 25.3 kg/m2 25.3 k g/m2 [place] ([facility]) Systolic blood pressure 150 mm[Hg] 150 mm[Hg] A THENA ([facility]) Body weight 0.4 [oz_av] 0.4 [oz_av] ATHEN A ([facility]) Diastolic blood pressure 74 mm[Hg] 74 mm[Hg] [place] ([facility]) Body height 60 [in_i] 60 [in_i] [place] ([facility]) Body mass index (BMI) [Ratio] 25.3 kg/m2 25.3 k g/m2 [facility] ([facility]) Systolic blood pressure 150 mm[Hg] 150 mm[Hg] [facility] Body weight 2070.4 [oz_av] 2070.4 [oz_av] ATHEN A ([facility]) Diastolic blood pressure 64 mm[Hg] 64 mm[Hg] [place] ([facility]) Body height 60 [in_i] 60 [in_i] [place] ([facility]) Body mass index (BMI) [Ratio] 24.38 kg/m2 24.38 kg/m2 [facility] ([facility]) Systolic blood pressure 158 mm[Hg] 158 mm[Hg] [facility] Body weight 1990.4 [oz_av] 1990.4 [oz_av] ATHEN A ([facility]) Diastolic blood pressure 64 mm[Hg] 64 mm[Hg] [place] ([facility]) Body height 60 [in_i] 60 [in_i] [place] ([facility]) Body mass index (BMI) [Ratio] 24.38 kg/m2 24.38 kg/m2 [place] ([facility]) Systolic blood pressure 158 mm[Hg] 158 mm[Hg] A [facility] ([facility]) Body weight 1989.4 [oz_av] 1990.4 [oz_av] ATHEN A ([facility]) Diastolic blood pressure 57 mm[Hg] 57 mm[Hg] [place] ([facility]) Body height 60 [in_i] 60 [in_i] [place] ([facility]) Systolic blood pressure 103 mm[Hg] 103 mm[Hg] A THENA ([facility]) Body weight 1974.4 [oz_av] 1974.4 [oz_av] ATHEN A ([facility]) Diastolic blood pressure 57 mm[Hg] 57 mm[Hg] [place] ([facility]) Body height 60 [in_i] 60 [in_i] [place] ([facility]) Body mass index (BMI) [Ratio] 24.19 kg/m2 24.19 kg/m2 [place] ([facility]) Systolic blood pressure 103 mm[Hg] 103 mm[Hg] A [facility] ([facility]) Body weight 1974.4 [oz_av] 1974.4 [oz_av] ATHSANDRA Ojeda ([facility]) Diastolic blood pressure 57 mm[Hg] 57 mm[Hg] [place] ([facility]) Body height 60 [in_i] 60 [in_i] [place] ([facility]) Systolic blood pressure 103 mm[Hg] 103 mm[Hg] A MERLE ([facility]) Body weight 1974.4 [oz_av] 1974.4 [oz_av] ATHSANDRA A ([facility]) Diastolic blood pressure 57 mm[Hg] 57 mm[Hg] [place] ([facility]) Body height 60 [in_i] 60 [in_i] [place] ([facility]) Body mass index (BMI) [Ratio] 24.19 kg/m2 24.19 kg/m2 [place] ([facility]) Systolic blood pressure 103 mm[Hg] 103 mm[Hg] A MERLE ([facility]) Body weight 1974.4 [oz_av] 1974.4 [oz_av] GETACHEW Ojeda ([facility]) Patient Treatment Plan of Care Planned Activity Planned Date Details Description Data Source (s) apixaban 5 MG Oral Tablet [Eliquis] 08/30/2020 12:00:00 AM EDT [facility] Magnesium Oxide 400 MG Oral Tablet 06/13/2020 12:00:00 AM EST [facility] Escitalopram 5 MG Oral Tablet 02/26/2020 12:00:00 AM EDT [facility] apixaban 5 MG Oral Tablet 01/30/2020 12:00:00 AM EDT [facility] Lisinopril 10 MG Oral Tablet 01/30/2020 12:00:00 AM EDT [facility] Sodium Bicarbonate 650 MG Oral Tablet 01/28/2020 12:00:00 AM EDT [facility] pantoprazole 40 MG Delayed Release Oral Tablet 01/28/2020 12:00:00 AM EDT [facility] atorvastatin 10 MG Oral Tablet 01/28/2020 12:00:00 AM EDT [facility] Amlodipine 5 MG Oral Tablet 01/28/2020 12:00:00 AM EDT [facility] Allopurinol 100 MG Oral Tablet 11/21/2019 12:00:00 AM EDT [facility] Sodium Bicarbonate 650 MG Oral Tablet [facility]OX[place] ([facility]) pantoprazole 40 MG Delayed Release Oral Tablet [facility] ([facility]) Ondansetron 4 MG Disintegrating Oral Tablet [facility] ([facility]) Omeprazole 20 MG Delayed Release Oral Capsule [facility] ([facility]) Lisinopril 10 MG Oral Tablet [facility] ([facility]) Fluoxetine 40 MG Oral Capsule [facility] ([facility]) Fluoxetine 20 MG Oral Capsule [facility] ([facility]) apixaban 2.5 MG Oral Tablet [Eliquis] [facility] ([facility]) Cephalexin 500 MG Oral Capsule [facility] ([facility]) Amlodipine 5 MG Oral Tablet [facility] ([facility]) Amiodarone hydrochloride 200 MG Oral Tablet [facility] ([facility]) Allopurinol 100 MG Oral Tablet [facility] ([facility]) Sodium Bicarbonate 650 MG Oral Tablet [facility] ([facility]) Ondansetron 4 MG Disintegrating Oral Tablet [facility] ([facility]) Omeprazole 20 MG Delayed Release Oral Capsule [facility] ([facility]) Lisinopril 10 MG Oral Tablet [facility] ([facility]) Fluoxetine 40 MG Oral Capsule [facility] ([facility]) Fluoxetine 20 MG Oral Capsule [facility] ([facility]) Escitalopram 5 MG Oral Tablet [facility] ([facility]) apixaban 2.5 MG Oral Tablet [Eliquis] [facility] ([facility]) Cephalexin 500 MG Oral Capsule [facility] ([facility]) Amlodipine 5 MG Oral Tablet [facility] ([facility]) Amiodarone hydrochloride 200 MG Oral Tablet [facility] ([facility]) Allopurinol 100 MG Oral Tablet [facility] ([facility]) Sodium Bicarbonate 650 MG Oral Tablet [facility] ([facility]) Ondansetron 4 MG Disintegrating Oral Tablet [facility] ([facility]) Omeprazole 20 MG Delayed Release Oral Capsule [facility] ([facility]) Fluoxetine 40 MG Oral Capsule [place] ([facility]) Fluoxetine 20 MG Oral Capsule [facility] ([facility]) apixaban 2.5 MG Oral Tablet [Eliquis] [facility] ([facility]) Cephalexin 500 MG Oral Capsule [facility] ([facility]) Amiodarone hydrochloride 200 MG Oral Tablet [facility] ([facility]) Allopurinol 100 MG Oral Tablet [facility] ([facility]) pantoprazole 40 MG Delayed Release Oral Tablet [facility] ([facility]) Fluoxetine 40 MG Oral Capsule [facility] ([facility]) Fluoxetine 20 MG Oral Capsule [facility] ([facility]) apixaban 2.5 MG Oral Tablet [Eliquis] [facility] ([facility]) Cephalexin 500 MG Oral Capsule [facility] ([facility]) Amiodarone hydrochloride 200 MG Oral Tablet [facility] ([facility])
--- OUTSIDE RECORDS SUMMARY | 2021-02-18 01:31 | CCD ---
Author Author [facility] Organization [facility] Address Unknown Phone Unavailable Care Team Providers Care Dinner Cook Name Role Phone Maring, Gian PA Unavailable [...] Unavailable Christine Ayala MD Unavailable Unavailable Christine Aayla MD Unavailable Unavailable Christine Ayala MD Unavailable [...] Unavailable Unavailable Korin ARRIETA MD Unavailable Unavailable Kroin ARRIETA MD Unavailable Unavailable Korin ARRIETA MD [...] Unavailable Unavailable VIRGIE, ALEXANDRA CHRISTENSEN Unavailable Unavailable FELIPE, ASIA PALOMO RPA-C Unavailable [...] is protected by Article 27-F of the [facility] Public Health law. If you continue you may have access to information: Regarding HIV / AIDS; Provided by facilities licensed or operated by the [facility] Office of Mental Health; or Provided by the [facility] Office for People With Developmental Disabilities. If such information is present, then the following [facility] mandated warning applies: This information has [...] law may result in a fine or mcc sentence or both. A general authorization for the release of medical or other information is NOT sufficient authorization for further disc losure. Allergies and Adverse Reactions Type Description Substance Reaction Status Data Source(s ) Allergy to substance Allergy to substance Allergy to substance [place] ([facility]) Allergy to substance Allergy to substance Allergy to substance [place] ([facility]) Family History Family Member Name Family Member Gender Family Member Status Date o f Status Description Data Source(s) Unknown Male Condition [facility] Unknown Unknown Problem [facility] ([facility]) Unknown Unknown Problem [facility] ([facility] Encounters Encounter Providers Location Date Indications Data Source(s ) Outpatient Attender: ALEXANDRA GARVIN MD [facility] 12:00:00 AM EDT - 02/16/2021 09:04:29 AM EDT [facility] Outpatient Attender: RANJIT ARRIETA MD 01/14 01:43:09 PM EDT - 01/14/2021 03:29:26 PM EDT [facility] ([facility] ) Outpatient Attender: PHONG THAKKAR RPA 01/09 08:16:50 AM EDT - 01/09/2021 08:36:09 AM EDT [facility] ([facility] ) Outpatient Attender: Gian PAZ 01/07/20 09:44:32 AM EDT - 01/06/2021 09:57:37 AM EDT [facility] ([facility] ) José Ayala MD: [address] [place] [address], Ph. Attender: José Ayala MD [facility] Medical 11/24/2020 12:00:00 AM EDT [place] [facility] An Pack PA-C: [address] [address], Ph. Attender: An PAZ [facility] Medical 06/22/2020 12:00:00 AM EST [place] ([facility]) TASIA ShannonC: [address], [place] [address], Ph. Attender: An PAZ [facility] Medical 06/22/2020 12:00:00 AM EST [place] ([facility]) Outpatient Referrer: ALEXANDRA ZAPATA.BISHNU 12:00:00 AM EST - 05/17/2020 08:48:52 AM EST [facility] Palomo Felipe RPA-C: [address], [place] [address], Ph. Attender: PALOMO BURNETTC [facility] Medical 04/08/2020 12:00:00 AM EST [place] ([facility]) Palomo Felipe RPA-C: [address], [place] [address], Ph. Attender: PALOMO BURNETTC [facility] Medical 04/08/2020 12:00:00 AM EST [place] ([facility]) Palomo Felipe RPA-C: [address], [place] [address], Ph. Attender: PALOMO BURNETTC [facility] Medical 04/08/2020 12:00:00 AM EST [place] ([facility]) Outpatient Attender: ALEXANDRA KINGPANCHO 12:00:00 AM EST - 03/26/2020 10:37:54 AM EST [facility] Palomo Felipe RPA-C: [address], [place] [address], Ph. Attender: PALOMO FELIPE RPA-C [facility] Medical 02/26/2020 12:00:00 AM EDT [place] ([facility]) Palomo Felipe RPA-C: [address], [place] [address], Ph. Attender: PALOMO FELIPE RPA-C [facility] Medical 02/26/2020 12:00:00 AM EDT [place] ([facility]) Palomo Felipe RPA-C: [address], [place] [address], Ph. Attender: PALOMO FELIPE RPA-C [facility] Medical 02/26/2020 12:00:00 AM EDT [place] ([facility]) Palomo Felipe RPA-C: [address], [place] [address], Ph. Attender: PALOMO FELIPE RPA-C [facility] Medical 02/26/2020 12:00:00 AM EDT [place] ([facility]) Outpatient Attender: PALOMO FELIPE RPA-C [facility] 02/11/2020 01:13:02 PM EDT [facility] Outpatient Attender: PALOMO FELIPE RPA-C [facility] 02/05/2020 02:14:01 PM EDT [facility] Outpatient Attender: ALEXANDRA GARVIN MD [facility] 01/30/2020 12:00:00 AM EDT [facility] Outpatient Attender: PALOMO FELIPE RPA-C [facility] 01/13/2020 10:15:04 AM EDT [facility] Outpatient Attender: PALOMO FELIPE RPA-C [facility] 01/13/2020 10:15:01 AM EDT [facility] Outpatient Attender: PALOMO FELIPE RPA-C [facility] 01/13/2020 10:14:02 AM EDT [facility] Outpatient Attender: PALOMO VARUN ALBA JC 01/09/2020 09:45:03 AM EDT [facility] Outpatient Attender: PALOMO VARUN ALBA [facility] 01/08/2020 05:05:59 PM EDT [facility] Outpatient Attender: PALOMO VARUN ALBA JC 01/07/2020 02:38:01 PM EDT [facility] Emergency Attender: DESI STALLINGS MDConsultant: PALOMO VARUN ALBA 12/25/2019 01:46:00 PM EDT - 12/25/2019 07:27:00 PM EDT [facility] Patient discharged. Immunizations Vaccine Date Status Description Data Source(s) COVID-19 VACCINE Kevin 08/07/2020 12:00:00 AM EDT completed [employer] Vaccine Series Complete: YESThis Data wa s Submitted to [facility] Via [employer].. Medications Medication Brand Name Start Date Product [...] TAKE ONE TABLET BY MOUTH TWICE DAILY [facility] Paroxysmal atrial fibrillation Magnesium Oxide 400 MG Oral Tablet magnesium oxide (MA G-OX) 400 MG tablet magnesium oxide (MAG-OX) 400 MG tablet 06/13/2020 12:00:00 AM EST 1 {tbl} Oral aborted Take 1 tablet by kristin th daily [facility] Escitalopram 5 MG Oral Tablet escitalopram (LEXAPRO) 5 MG tablet escitalopram (LEXAPRO) 5 MG tablet 02/26/2020 12:00:00 AM EDT 5 mg Oral active Take 5 mg by mouth daily [facility] Lisinopril 10 MG Oral Tablet lisinopril (PRINIVIL,ZEST RIL) 10 MG tablet lisinopril (PRINIVIL,ZESTRIL) 10 MG tablet 01/30/2020 12:00:00 AM EDT 10 mg Oral aborted Hypertension, unspecified type Take 1 tablet (10 mg total) by mouth 2 (two) times a day [facility] Hypertension, unspecified type apixaban 5 MG Oral Tablet Apixaban (ELIQUIS) 5 MG TABS tablet Apixaban (ELIQUIS) 5 MG TABS tablet 01/30/2020 12:00:00 AM EDT 5 mg Oral active Paroxysmal atrial fibrillation Take 1 tablet (5 mg total) by mouth 2 (t wo) times a day [facility] Paroxysmal atrial fibrillation Amlodipine 5 MG Oral Tablet amLODIPine (NORVASC) 5 MG tablet amLODIPine (NORVASC) 5 MG tablet 01/28/2020 12:00:00 AM EDT 2.5 mg Oral active Take 2.5 mg by mouth daily [facility] atorvastatin 10 MG Oral Tablet atorvastatin (LIPITOR) 10 MG tablet atorvastatin (LIPITOR) 10 MG tablet 01/28/2020 12:00:00 AM EDT 10 mg Oral active Take 10 mg by mouth daily [facility] pantoprazole 40 MG Delayed Release Oral Tablet pantoprazole (PROTONIX) 40 MG tablet pantoprazole (PROTONIX) 40 MG tablet 01/28/2020 12:00:00 AM EDT 40 mg Oral aborted Take 40 mg by mouth daily [facility] Sodium Bicarbonate 650 MG Oral Tablet sodium bicarbona te 650 MG tablet sodium bicarbonate 650 MG tablet 01/28/2020 12:00:00 AM EDT 650 mg Oral aborted Take 650 mg by mouth 2 (two) times a day [facility] Allopurinol 100 MG Oral Tablet allopurinol (ZYLOPRIM) 100 MG tablet allopurinol (ZYLOPRIM) 100 MG tablet 11/21/2019 12:00:00 AM EDT 100 mg Oral aborted Take 100 mg by mouth daily [facility] Escitalopram 5 MG Oral Tablet escitalopr am 5 mg tablet TAKE ONE TABLET BY MOUTH ONCE DAILY escitalopram 5 mg tablet TAKE ONE TABLET BY MOUTH ONCE DAILY completed escitalopram 5 MG Oral Ta blet [place] ([facility]) Fluoxetine 20 MG Oral Capsule fluoxetine 20 mg capsule fluox etine 20 mg capsule completed fluoxetine 20 MG Oral Capsule [place] ([facility]) Lisinopril 10 MG Oral Tablet lisinopril 10 mg tablet TAKE ONE TABLET BY MOUTH TWICE DAILY lisinopril 10 mg tablet TAKE ONE TABLET BY MOUTH TWICE DAILY completed lisinopril 10 MG Ora l Tablet [place] ([facility]) Amiodarone hydrochloride 200 MG Oral Tab let amiodarone 200 mg tablet 1 tablet per day amiodarone 200 mg tablet 1 tablet per day completed amiodarone hydrochloride 200 MG Oral Tablet [place] ([facility]) Allopurinol 100 MG Oral Tablet allopurinol 100 mg tabl et 1 tablet per day allopurinol 100 mg tablet 1 tablet per day completed allopurinol 100 MG Oral Tablet [place] ([facility]) apixaban 2.5 MG Oral Tablet [Eliquis] Eliquis 2.5 mg t ablet Eliquis 2.5 mg tablet completed apixaban 2.5 MG Oral Tablet [Eliquis] [place] ([facility]) Sodium Bicarbonate 650 MG Oral Tablet so dium bicarbonate 650 mg tablet TAKE ONE TABLET BY MOUTH TWICE DAILY sodium bicarbonate 650 mg tablet TAKE ON E TABLET BY MOUTH TWICE DAILY completed sodium bicarbonate 650 MG Oral Tablet [place] ([facility]) apixaban 2.5 MG Oral Tablet [Eliquis] Eliquis 2.5 mg t ablet Eliquis 2.5 mg tablet completed apixaban 2.5 MG Oral Tablet [Eliquis] [place] ([facility]) Sodium Bicarbonate 650 MG Oral Tablet so dium bicarbonate 650 mg tablet TAKE ONE TABLET BY MOUTH TWICE DAILY sodium bicarbonate 650 mg tablet TAKE ON E TABLET BY MOUTH TWICE DAILY completed sodium bicarbonate 650 MG Oral Tablet [place] ([facility]) Lisinopril 10 MG Oral Tablet lisinopril 10 mg tablet TAKE ONE TABLET BY MOUTH TWICE DAILY lisinopril 10 mg tablet TAKE ONE TABLET BY MOUTH TWICE DAILY completed lisinopril 10 MG Ora l Tablet [place] ([facility]) Cephalexin 500 MG Oral Capsule cephalexin 500 mg capsu le 1 tablet per day cephalexin 500 mg capsule 1 tablet per day completed cephalexin 500 MG Oral Capsule [place] ([facility]) Fluoxetine 20 MG Oral Capsule fluoxetine 20 mg capsule fluox etine 20 mg capsule completed fluoxetine 20 MG Oral Capsule [place] ([facility]) Cephalexin 500 MG Oral Capsule cephalexin 500 mg capsu le 1 tablet per day cephalexin 500 mg capsule 1 tablet per day completed cephalexin 500 MG Oral Capsule [place] ([facility]) Omeprazole 20 MG Delayed Release Oral Ca psule omeprazole 20 mg capsule,delayed release 1 tablett per day omeprazole 20 mg capsule,delayed release 1 tablett per day completed omeprazole 20 MG Delayed Release Oral Capsule [place] ([facility]) Ondansetron 4 MG Disintegrating Oral Tab let ondansetron 4 mg disintegrating tablet 1 tablet per day ondansetron 4 mg disintegrating tablet 1 tablet per da y completed ondansetron 4 MG Disintegrating Oral Tablet [place] ([facility]) pantoprazole 40 MG Delayed Release Oral Tablet pantoprazole 40 mg tablet,delayed release TAKE ONE TABLET BY MOUTH ONE-HALF HOUR BEFORE BREAKFAST, COMPLETED TOTAL THREE MONTH COURSE THEN TAPER OFF pantoprazole 40 mg tablet,delayed release TAKE ONE TABLET BY MOUTH ONE-HALF HOUR BEFORE BREAKFAST, COMPLETED TOTAL THREE MONTH COURSE THEN TAPER OFF com pleted pantoprazole 40 MG Delayed Release Oral Tablet [place] ([facility]) Amiodarone hydrochloride 200 MG Oral Tab let amiodarone 200 mg tablet 1 tablet per day amiodarone 200 mg tablet 1 tablet per day completed amiodarone hydrochloride 200 MG Oral Tablet [place] ([facility]) Fluoxetine 40 MG Oral Capsule fluoxetine 40 mg capsule fluox etine 40 mg capsule completed fluoxetine 40 MG Oral Capsule [place] ([facility]) Fluoxetine 20 MG Oral Capsule fluoxetine 20 mg capsule fluox etine 20 mg capsule completed fluoxetine 20 MG Oral Capsule [place] ([facility]) Allopurinol 100 MG Oral Tablet allopurinol 100 mg tabl et 1 tablet per day allopurinol 100 mg tablet 1 tablet per day completed allopurinol 100 MG Oral Tablet [place] ([facility]) Amlodipine 5 MG Oral Tablet amlodipine 5 mg tablet TAKE 1/2 TABLET BY MOUTH ONCE DAILY amlodipine 5 mg tablet TAKE 1/2 TABLET BY MOUTH ONCE DAILY completed amlodipine 5 MG Oral Tablet [place] ([facility]) Fluoxetine 40 MG Oral Capsule fluoxetine 40 mg capsule fluox etine 40 mg capsule completed fluoxetine 40 MG Oral Capsule [place] ([facility]) Allopurinol 100 MG Oral Tablet allopurinol 100 mg tabl et 1 tablet per day allopurinol 100 mg tablet 1 tablet per day completed allopurinol 100 MG Oral Tablet [place] ([facility]) Ondansetron 4 MG Disintegrating Oral Tab let ondansetron 4 mg disintegrating tablet 1 tablet per day ondansetron 4 mg disintegrating tablet 1 tablet per da y completed ondansetron 4 MG Disintegrating Oral Tablet [place] ([facility]) apixaban 2.5 MG Oral Tablet [Eliquis] Eliquis 2.5 mg t ablet Eliquis 2.5 mg tablet completed apixaban 2.5 MG Oral Tablet [Eliquis] [place] ([facility]) Fluoxetine 40 MG Oral Capsule fluoxetine 40 mg capsule fluox etine 40 mg capsule completed fluoxetine 40 MG Oral Capsule [place] ([facility]) Omeprazole 20 MG Delayed Release Oral Ca psule omeprazole 20 mg capsule,delayed release 1 tablett per day omeprazole 20 mg capsule,delayed release 1 tablett per day completed omeprazole 20 MG Delayed Release Oral Capsule [place] ([facility]) Sodium Bicarbonate 650 MG Oral Tablet so dium bicarbonate 650 mg tablet TAKE ONE TABLET BY MOUTH TWICE DAILY sodium bicarbonate 650 mg tablet TAKE ON E TABLET BY MOUTH TWICE DAILY completed sodium bicarbonate 650 MG Oral Tablet [place] ([facility]) Cephalexin 500 MG Oral Capsule cephalexin 500 mg capsu le 1 tablet per day cephalexin 500 mg capsule 1 tablet per day completed cephalexin 500 MG Oral Capsule [place] ([facility]) Amiodarone hydrochloride 200 MG Oral Tab let amiodarone 200 mg tablet 1 tablet per day amiodarone 200 mg tablet 1 tablet per day completed amiodarone hydrochloride 200 MG Oral Tablet [place] ([facility]) Fluoxetine 40 MG Oral Capsule fluoxetine 40 mg capsule fluox etine 40 mg capsule completed fluoxetine 40 MG Oral Capsule [place] ([facility]) Fluoxetine 20 MG Oral Capsule fluoxetine 20 mg capsule fluox etine 20 mg capsule completed fluoxetine 20 MG Oral Capsule [place] ([facility]) Cephalexin 500 MG Oral Capsule cephalexin 500 mg capsu le 1 tablet per day cephalexin 500 mg capsule 1 tablet per day completed cephalexin 500 MG Oral Capsule [place] ([facility]) Amlodipine 5 MG Oral Tablet amlodipine 5 mg tablet TAKE 1/2 TABLET BY MOUTH ONCE DAILY amlodipine 5 mg tablet TAKE 1/2 TABLET BY MOUTH ONCE DAILY completed amlodipine 5 MG Oral Tablet [place] ([facility]) pantoprazole 40 MG Delayed Release Oral Tablet pantoprazole 40 mg tablet,delayed release 1 tablet per day pantoprazole 40 mg tablet,delayed releas e 1 tablet per day completed pantoprazole 40 MG Delayed Release Oral Tablet [place] ([facility]) Omeprazole 20 MG Delayed Release Oral Ca psule omeprazole 20 mg capsule,delayed release 1 tablett per day omeprazole 20 mg capsule,delayed release 1 tablett per day completed omeprazole 20 MG Delayed Release Oral Capsule [place] ([facility]) apixaban 2.5 MG Oral Tablet [Eliquis] Eliquis 2.5 mg t ablet Eliquis 2.5 mg tablet completed apixaban 2.5 MG Oral Tablet [Eliquis] [place] ([facility]) Ondansetron 4 MG Disintegrating Oral Tab let ondansetron 4 mg disintegrating tablet 1 tablet per day ondansetron 4 mg disintegrating tablet 1 tablet per da y completed ondansetron 4 MG Disintegrating Oral Tablet [place] ([facility]) Amiodarone hydrochloride 200 MG Oral Tab let amiodarone 200 mg tablet 1 tablet per day amiodarone 200 mg tablet 1 tablet per day completed amiodarone hydrochloride 200 MG Oral Tablet [place] ([facility]) Insurance Providers Payer name Policy type / Coverage type Policy ID Covered alliance party ID Covered alliance party's relationship to del cid Policy Del Cid Plan Information MEDICARE COMPLETE [id number] SP [id number] MEDICARE COMPLETE [id number] SP [id number] MEDICARE COMPLETE [id number] SP [id number] [facility] [id number] SP [id number] [employer] [id number] Self [id number] [facility] MEDIC[facility] [id number] Sarah [id number] [facility] MEDICARE [id number] xxxxxxxx [id number] [facility] emp [id number] Employee [id number] [facility] Health Plans [facility] Commercial [id number] Self [id number] ANSI-Health Maintenance Organization (HM O) [id number] ANSI-Medicare Part B [id number] ANSI-Medicare Part B [id number] [facility]-Health Maintenance Organization ( O) [id number] [employer] Commercial [id number] Self [id number] [employer](To) Commercial [id number] Self [id number] ANSI-Medicare Part B [id number] [facility]-Health Maintenance Organization ( O) [id number] [employer](To) Commercial [id number] Self [id number] [employer] [id number] SP [id number] MEDICARE COMPLETE [id number] SP [id number] ANSI-Medicare Part B [id number] MEDICARE [id number] SP [id number] A MEDICARE COMPLETE [id number] SP [id number] ANSI-Medicare Part B [id number] ANSI-Medicare Part B [id number] ANSI-Medicare Part B [id number] ANSI-Medicare Part B [id number] ANSI-Medicare Part B [id number] ANSI-Medicare Part B [id number] ANSI-Medicare Part B [id number] MEDICARE COMPLETE [id number] SP [id number] ANSI-Medicare Part B [id number] ANSI-Medicare Part B [id number] MEDICARE COMPLETE-[facility] O [id number] S [id number] MEDICARE COMPLETE-UHC O [id number] S [id number] [employer] [id number] SP [id number] MEDICARE COMPLETE-UHC O [id number] S [id number] [employer]/BULGARIAN O [id number] S [id number] [employer] [id number] SP [id number] [employer]/BULGARIAN O [id number] S [id number] [employer] [id number] SP [id number] MEDICARE P [id number] S [id number] [employer] B [id number] S [id number] TOD[employer]YS OPTION -O/P [id number] 18 [id number] [facility] [id number] SP [id number] WELLCARE [id number] SP [id number] MEDICARE BLUE PPO [id number] SP [id number] MEDICARE [id number] SP [id number] WELLCARE -O/P [id number] 18 [id number] MEDICARE JOSE [id number] S [id number] WELLCARE HEA [id number] S [id number] WELLCARE [id number] SP [id number] ANSI-Health Maintenance Organization (HM O) [id number] ANSI-Medicare Part B [id number] Problems, Conditions, and Diagnoses Code Display Name Description Problem Type Effective Dates Data Source(s) R07.2 Precordial pain Precordial pain Diagnosis 02/16/2021 08:2 6:28 AM EDT [facility] I10 Essential (primary) hypertension Essential (primary) h ypertension Diagnosis 02/16/2021 08:26:28 AM EDT [facility] M10.9 Gout, unspecified Gout, unspecified Diagnosis 02/16/2021 08:26:28 AM EDT [facility] K21.9 Gastro-esophageal reflux disease without esophagitis Gastro-esophageal reflux disease without Diagnosis 02/16/2021 08:26:28 AM EDT [facility] I48.0 Paroxysmal atrial fibrillation Paroxysmal atrial fibri llation Diagnosis 02/16/2021 08:26:28 AM EDT [facility] E78.5 Hyperlipidemia, unspecified Hyperlipidemia, unspecifie d Diagnosis 02/16/2021 08:26:28 AM EDT [facility] K8020 Calculus of gallbladder without cholecys titis without obstruction Calculus of gallbladder without cholecystitis without obstruction Diagnosis 12/25/2019 01:46:00 PM EDT [facility] E871 Hypo-osmolality and hyponatremia Hypo-osmolality and hyponatremia Diagnosis 12/25/2019 01:46:00 PM EDT [facility] E876 Hypokalemia Hypokalemia Diagnosis 12/25/2019 01:46:00 PM EDT [facility] N179 Acute kidney failure, unspecified Acute kidney f ailure, unspecified Diagnosis 12/25/2019 01:46:00 PM EDT [facility] R109 Unspecified abdominal pain Unspecified abdominal pain Diagnosis 12/25/2019 01:46:00 PM EDT [facility] [id number] Major depressive disorder Major Depressive Disorder Pr oblem 04/08/2020 12:00:00 AM EST [place] [facility]) [id number] Major depressive disorder Major Depressive Disorder Pr oblem 04/08/2020 12:00:00 AM EST [place] ([facility]) [id number] Major depressive disorder Major Depressive Disorder Pr oblem 04/08/2020 12:00:00 AM EST [place] ([facility]) R07.2 Precordial pain Precordial pain [id number] 03/26/2020 12:0 0:00 AM EST [facility] K21.9 GERD (gastroesophageal reflux disease) G ERD (gastroesophageal reflux disease) [id number] 01/30/2020 12:00:00 AM EDT [facility] I48.0 Paroxysmal atrial fibrillation Paroxysmal atrial fibri llation [id number] 01/30/2020 12:00:00 AM EDT [facility] M10.9 Gout Gout [id number] 01/30/2020 12:00:00 AM ED T [facility] E78.5 Hyperlipidemia Hyperlipidemia [id number] 01/30/2020 12:00: 00 AM EDT [facility] I10 Hypertension Hypertension [id number] 01/30/2020 12:00:00 A M EDT [facility] Z93.3 Colostomy status Colostomy status 01/08/2020 05 :05:33 PM EDT [facility] 787.02 Nausea Nausea 01/07/2020 02:37:58 PM ED T [facility] [id number] Nausea Nausea Problem 01/07/2020 12:0 0:00 AM EDT - 04/08/2020 12:00:00 AM EST [place] ([facility]) [id number] Nausea Nausea Problem 01/07/2020 12:00:00 AM ED T [place] ([facility]) [id number] Nausea Nausea Problem 01/07/2020 12:0 0:00 AM EDT - 04/08/2020 12:00:00 AM EST [place] ([facility]) [id number] Nausea Nausea Problem 01/07/2020 12:0 0:00 AM EDT - 04/08/2020 12:00:00 AM EST [place] ([facility]) [id number] Colostomy present Colostomy Present Problem 01/04 12:00:00 AM EDT [place] ([facility]) [id number] Colostomy present Colostomy Present Problem 01/04 12:00:00 AM EDT [place] ([facility]) [id number] Colostomy present Colostomy Present Problem 01/04 12:00:00 AM EDT [place] ([facility]) [id number] Colostomy present Colostomy Present Problem 01/04 12:00:00 AM EDT [place] ([facility]) [id number] Procedure by method Procedure by Method Problem 0 09/23/2019 12:00:00 AM EDT - 02/27/2020 12:00:00 AM EDT [place] ([facility]) [id number] Procedure by method Procedure by Method Problem 0 09/23/2019 12:00:00 AM EDT - 02/27/2020 12:00:00 AM EDT [place] ([facility]) [id number] Procedure by method Procedure by Method Problem 0 09/23/2019 12:00:00 AM EDT - 02/27/2020 12:00:00 AM EDT [place] ([facility]) [id number] Procedure by method Procedure by Method Problem 0 09/23/2019 12:00:00 AM EDT - 02/27/2020 12:00:00 AM EDT [place] ([facility]) [id number] Hand pain Hand Pain Problem 09/08/2019 12:0 0:00 AM EDT - 02/26/2020 12:00:00 AM EDT [place] ([facility]) [id number] Hand pain Hand Pain Problem 09/08/2019 12:0 0:00 AM EDT - 02/26/2020 12:00:00 AM EDT [place] ([facility]) [id number] Hand pain Hand Pain Problem 09/08/2019 12:0 0:00 AM EDT - 02/26/2020 12:00:00 AM EDT [place] ([facility]) [id number] Hand pain Hand Pain Problem 09/08/2019 12:0 0:00 AM EDT - 02/26/2020 12:00:00 AM EDT [place] ([facility]) Surgeries/Procedures Procedure Description Date Indications Data Source(s) ECG ROUTINE ECG W/LEAST 12 LDS W/I&R <td>POCT AMB EKG</td><td>Routine</td><td>02/16/2021 9:27 AM EDT</td><td> Paroxysmal atrial fibrillation Hypertension, unspecified type Precordial pain</td><td> </td> 02/16/2021 09:27:00 AM EDT Precordial painHypertension, unspecified typeParoxysmal atrial fibrillation [facility] Precordial pain Hypertension, unspecified type Paroxysmal atrial fibrillation Results ID Date Data Source [id number] 01/12/2021 02:10:00 PM EDT [facility] Name Value Range Interpretation Code Description Data Bridget rce(s) Supporting Document(s) SARS coronavirus 2 RNA [Presence] in Res piratory specimen by SHIMA with probe detection NEGATIVE [facility] This lab was ordered by [facility] a nd reported by [facility]. ID Date Data Source [id number] 05/19/2020 05:46:00 AM EST [facility]) Name Value Range Interpretation Code Description Data Bridget rce(s) Supporting Document(s) glucose, fasting 80 mg/dL 70-100 Glucose, Fasting AT [facility]) blood urea nitrogen 39 mg/dL 7-18 Above high normal Blood Ure a Nitrogen [facility]) creatinine for GFR 1.26 mg/dL 0.55-1.30 Creatinine for GF R [place] ([facility]) glomerular filtration rate >39 Glomerula r Filtration Rate [place] ([facility]) potassium serum 4.3 mEq/L 3.5-5.1 Potassium Serum ATH NA ([facility]) sodium level 143 mEq/L 136-145 Sodium Level [place] ([facility]) chloride level 111 mEq/L 98-107 Above high normal Chloride Level [place] ([facility]) carbon dioxide level 28 mEq/L 21-32 Carbon Dioxide Level [facility]) calcium level 8.3 mg/dL 8.8-10.2 Below low normal Calcium Level AT [facility]) anion gap 4 mEq/L 8-16 Below low normal Anion Gap [facility]) ID Date Data Source [id number] 05/19/2020 05:46:00 AM EST [facility]) Name Value Range Interpretation Code Description Data Bridget rce(s) Supporting Document(s) red blood count 2.93 10 4.00-5.40 Below low normal Red Blood Coun t [facility]) white blood count 6.8 10 4.0-10.0 White Blood Count [facility]) hemoglobin 8.5 g/dL 12.0-15.5 Below low normal Hemoglobin [place] ( [facility]) hematocrit 27.5 % 36.0-47.0 Below low normal Hematocrit [place] ( [facility]) mean corpuscular volume 93.9 fL 80.0-96.0 Mean Corpusc ular Volume [place] ([facility]) mean corpuscular hemoglobin 29.0 pg 27.0-33.0 Mean Cor puscular Hemoglobin [place] ([facility]) mean corpuscular HGB conc 30.9 g/dL 32.0-36.5 Below low desi l Mean Corpuscular HGB Conc [place] ([facility]) red cell distribution width 13.2 % 11.5-14.5 Red Cell Distribution Width [place] ([facility]) platelet count, automated 146 10 150-450 Below low desi l Platelet Count, Automated [place] ([facility]) nucleated red blood cell % 0.0 % 0-0 Nucleated Red Blood Cell % [place] ([facility]) ID Date Data Source [id number] 05/19/2020 05:46:00 AM EST [place] ([facility]) Name Value Range Interpretation Code Description Data Bridget rce(s) Supporting Document(s) glucose, fasting 80 mg/dL 70-100 Glucose, Fasting AT [facility] ([facility]) creatinine for GFR 1.26 mg/dL 0.55-1.30 Creatinine for GF R [place] ([facility]) blood urea nitrogen 39 mg/dL 7-18 Above high normal Blood Ure a Nitrogen [place] ([facility]) glomerular filtration rate >39 Glomerula r Filtration Rate [place] ([facility]) potassium serum 4.3 mEq/L 3.5-5.1 Potassium Serum ATHE NA ([facility]) sodium level 143 mEq/L 136-145 Sodium Level [place] ([facility]) chloride level 111 mEq/L 98-107 Above high normal Chloride Level [place] ([facility]) carbon dioxide level 28 mEq/L 21-32 Carbon Dioxide Level [place] [facility]) anion gap 4 mEq/L 8-16 Below low normal Anion Gap [place] ( [facility]) calcium level 8.3 mg/dL 8.8-10.2 Below low normal Calcium Level AT [facility]) ID Date Data Source [id number] 05/19/2020 05:46:00 AM EST [place] ([facility]) Name Value Range Interpretation Code Description Data Bridget rce(s) Supporting Document(s) white blood count 6.8 10 4.0-10.0 White Blood Count [place] ([facility]) hemoglobin 8.5 g/dL 12.0-15.5 Below low normal Hemoglobin [facility]) red blood count 2.93 10 4.00-5.40 Below low normal Red Blood Coun t [place] ([facility]) hematocrit 27.5 % 36.0-47.0 Below low normal Hematocrit [place] ( [facility]) mean corpuscular hemoglobin 29.0 pg 27.0-33.0 Mean Cor puscular Hemoglobin [place] ([facility]) mean corpuscular volume 93.9 fL 80.0-96.0 Mean Corpusc ular Volume [place] ([facility]) mean corpuscular HGB conc 30.9 g/dL 32.0-36.5 Below low desi l Mean Corpuscular HGB Conc [place] ([facility]) red cell distribution width 13.2 % 11.5-14.5 Red Cell Distribution Width [place] ([facility]) platelet count, automated 146 10 150-450 Below low desi l Platelet Count, Automated [place] ([facility]) nucleated red blood cell % 0.0 % 0-0 Nucleated Red Blood Cell % [place] ([facility]) ID Date Data Source [id number] 05/18/2020 06:03:00 AM EST [facility]) Name Value Range Interpretation Code Description Data Bridget rce(s) Supporting Document(s) glucose, fasting 83 mg/dL 70-100 Glucose, Fasting AT [facility]) blood urea nitrogen 55 mg/dL 7-18 Above high normal Blood Ure a Nitrogen [place] ([facility]) creatinine for GFR 1.54 mg/dL 0.55-1.30 Creatinine for GF R [place] ([facility]) glomerular filtration rate >39 Below low normal Anay merular Filtration Rate [place] ([facility]) sodium level 143 mEq/L 136-145 Sodium Level [place] ([facility]) potassium serum 4.1 mEq/L 3.5-5.1 Potassium Serum ATH NA ([facility]) chloride level 109 mEq/L 98-107 Above high normal Chloride Level [place] ([facility]) carbon dioxide level 29 mEq/L 21-32 Carbon Dioxide Level [place] ([facility]) anion gap 5 mEq/L 8-16 Below low normal Anion Gap [place] ( [facility]) calcium level 7.7 mg/dL 8.8-10.2 Below low normal Calcium Level AT [facility] ([facility]) ID Date Data Source [id number] 05/18/2020 06:03:00 AM EST [facility]) Name Value Range Interpretation Code Description Data Bridget rce(s) Supporting Document(s) white blood count 5.6 10 4.0-10.0 White Blood Count [place] ([facility]) red blood count 2.95 10 4.00-5.40 Below low normal Red Blood Coun t [place] ([facility]) hemoglobin 8.6 g/dL 12.0-15.5 Below low normal Hemoglobin [place] ( [facility]) mean corpuscular volume 91.9 fL 80.0-96.0 Mean Corpusc ular Volume [place] ([facility]) hematocrit 27.1 % 36.0-47.0 Below low normal Hematocrit [place] ( [facility]) mean corpuscular hemoglobin 29.2 pg 27.0-33.0 Mean Cor puscular Hemoglobin [place] ([facility]) mean corpuscular HGB conc 31.7 g/dL 32.0-36.5 Below low desi l Mean Corpuscular HGB Conc [place] ([facility]) red cell distribution width 13.4 % 11.5-14.5 Red Cell Distribution Width [place] ([facility]) platelet count, automated 163 10 150-450 Platelet C ount, Automated [place] ([facility]) nucleated red blood cell % 0.0 % 0-0 Nucleated Red Blood Cell % [place] ([facility]) ID Date Data Source [id number] 05/18/2020 06:03:00 AM EST [place] ([facility]) Name Value Range Interpretation Code Description Data Bridget rce(s) Supporting Document(s) glucose, fasting 83 mg/dL 70-100 Glucose, Fasting AT [facility]) blood urea nitrogen 55 mg/dL 7-18 Above high normal Blood Ure a Nitrogen [place] ([facility]) creatinine for GFR 1.54 mg/dL 0.55-1.30 Creatinine for GF R [place] ([facility]) glomerular filtration rate >39 Below low normal Anay merular Filtration Rate [place] ([facility]) potassium serum 4.1 mEq/L 3.5-5.1 Potassium Serum [place] NA ([facility]) sodium level 143 mEq/L 136-145 Sodium Level [place] ([facility]) carbon dioxide level 29 mEq/L 21-32 Carbon Dioxide Level [place] ([facility]) chloride level 109 mEq/L 98-107 Above high normal Chloride Level [place] ([facility]) anion gap 5 mEq/L 8-16 Below low normal Anion Gap [place] ( [facility]) calcium level 7.7 mg/dL 8.8-10.2 Below low normal Calcium Level AT [facility]) ID Date Data Source [id number] 05/18/2020 06:03:00 AM EST [place] ([facility]) Name Value Range Interpretation Code Description Data Bridget rce(s) Supporting Document(s) white blood count 5.6 10 4.0-10.0 White Blood Count [place] ([facility]) red blood count 2.95 10 4.00-5.40 Below low normal Red Blood Coun t [place] ([facility]) hemoglobin 8.6 g/dL 12.0-15.5 Below low normal Hemoglobin [place] ( [facility]) hematocrit 27.1 % 36.0-47.0 Below low normal Hematocrit [place] ( [facility]) mean corpuscular volume 91.9 fL 80.0-96.0 Mean Corpusc ular Volume [place] ([facility]) mean corpuscular hemoglobin 29.2 pg 27.0-33.0 Mean Cor puscular Hemoglobin [place] ([facility]) mean corpuscular HGB conc 31.7 g/dL 32.0-36.5 Below low desi l Mean Corpuscular HGB Conc [place] ([facility]) red cell distribution width 13.4 % 11.5-14.5 Red Cell Distribution Width [place] ([facility]) platelet count, automated 163 10 150-450 Platelet C ount, Automated [place] ([facility]) nucleated red blood cell % 0.0 % 0-0 Nucleated Red Blood Cell % [place] ([facility]) ID Date Data Source [id number] 05/17/2020 04:54:00 AM EST [place] ([facility]) Name Value Range Interpretation Code Description Data Bridget rce(s) Supporting Document(s) cortisol AM 34.8 ug/dL 4.3-22.4 Above high normal Cortisol AM [place] A ([facility]) ID Date Data Source [id number] 05/17/2020 04:54:00 AM EST [place] ([facility]) Name Value Range Interpretation Code Description Data Bridget rce(s) Supporting Document(s) ferritin 130 NG/mL 8-252 Ferritin [place] ([facility]) ID Date Data Source [id number] 05/17/2020 04:54:00 AM EST [place] ([facility]) Name Value Range Interpretation Code Description Data Bridget rce(s) Supporting Document(s) vitamin B12 level 295 pg/mL 247-911 Vitamin B12 Level [place] ([facility]) ID Date Data Source [id number] 05/17/2020 04:54:00 AM EST [place] ([facility]) Name Value Range Interpretation Code Description Data Bridget rce(s) Supporting Document(s) iron (fe) 185 ug/dL 50-170 Above high normal Iron (Fe) [place] ([facility]) total iron binding capacity 259 ug/dL 250-450 Total Ir on Binding Capacity [place] ([facility]) percent saturation 71.4 % 13.2-45.0 Above high normal Percent Sa turation [place] ([facility]) ID Date Data Source [id number] 05/17/2020 04:54:00 AM EST [place] ([facility]) Name Value Range Interpretation Code Description Data Bridget rce(s) Supporting Document(s) magnesium level 1.9 mg/dL 1.8-2.4 Magnesium Level [place] ([facility]) ID Date Data Source [id number] 05/17/2020 04:54:00 AM EST [place] ([facility]) Name Value Range Interpretation Code Description Data Bridget rce(s) Supporting Document(s) phosphorus level 6.7 mg/dL 2.5-4.9 Above high normal Phosphorus L kaykay [place] ([facility]) ID Date Data Source [id number] 05/17/2020 04:54:00 AM EST [place] ([facility]) Name Value Range Interpretation Code Description Data Bridget rce(s) Supporting Document(s) glucose, fasting 163 mg/dL 70-100 Above high normal Glucose, Fas ting [place] ([facility]) blood urea nitrogen 79 mg/dL 7-18 Above high normal Blood Ure a Nitrogen [place] ([facility]) creatinine for GFR 3.38 mg/dL 0.55-1.30 Above high normal Creatinine for GFR [place] ([facility]) glomerular filtration rate >39 Below low normal Anay merular Filtration Rate [place] ([facility]) sodium level 140 mEq/L 136-145 Sodium Level [place] ([facility]) potassium serum 4.1 mEq/L 3.5-5.1 Potassium Serum [place] ([facility]) chloride level 107 mEq/L 98-107 Chloride Level [place] ([facility]) carbon dioxide level 27 mEq/L 21-32 Carbon Dioxide Level [place] ([facility]) anion gap 6 mEq/L 8-16 Below low normal Anion Gap [place] ( [facility]) calcium level 7.5 mg/dL 8.8-10.2 Below low normal Calcium Level AT [facility]) AST/SGOT 5 U/L 7-37 Below low normal AST/SGOT [place] ( [facility]) ALT/SGPT 7 U/L 12-78 Below low normal ALT/SGPT [place] ( [facility]) alkaline phosphatase 54 U/L 45-117 Alkaline Phosph atase [place] ([facility]) total protein 5.0 gm/dL 6.4-8.2 Below low normal Total Protein AT [facility]) bilirubin,total 0.8 mg/dL 0.2-1.0 Bilirubin,total [place] ([facility]) albumin 2.6 gm/dL 3.2-5.2 Below low normal Albumin [place] ( [facility]) albumin/globulin ratio 1.2-2.2 Below low normal Albumin /globulin Ratio [place] ([facility]) ID Date Data Source [id number] 05/17/2020 04:54:00 AM EST [place] ([facility]) Name Value Range Interpretation Code Description Data Bridget rce(s) Supporting Document(s) white blood count 4.2 10 4.0-10.0 White Blood Count [place] ([facility]) red blood count 2.77 10 4.00-5.40 Below low normal Red Blood Coun t [place] ([facility]) hemoglobin 8.2 g/dL 12.0-15.5 Below low normal Hemoglobin [place] ( [facility]) hematocrit 24.6 % 36.0-47.0 Below low normal Hematocrit [place] ( [facility]) mean corpuscular volume 88.8 fL 80.0-96.0 Mean Corpusc ular Volume [place] ([facility]) mean corpuscular hemoglobin 29.6 pg 27.0-33.0 Mean Cor puscular Hemoglobin [place] ([facility]) mean corpuscular HGB conc 33.3 g/dL 32.0-36.5 Mean Corpu scular HGB Conc [place] ([facility]) red cell distribution width 13.2 % 11.5-14.5 Red Cell Distribution Width [place] ([facility]) platelet count, automated 141 10 150-450 Below low desi l Platelet Count, Automated [place] ([facility]) nucleated red blood cell % 0.0 % 0-0 Nucleated Red Blood Cell % [place] ([facility]) ID Date Data Source [id number] 05/17/2020 04:54:00 AM EST [place] ([facility]) Name Value Range Interpretation Code Description Data Bridget rce(s) Supporting Document(s) cortisol AM 34.8 ug/dL 4.3-22.4 Above high normal Cortisol AM [place] ([facility]) ID Date Data Source [id number] 05/17/2020 04:54:00 AM EST [place] ([facility]) Name Value Range Interpretation Code Description Data Bridget rce(s) Supporting Document(s) ferritin 130 NG/mL 8-252 Ferritin [place] ([facility]) ID Date Data Source [id number] 05/17/2020 04:54:00 AM EST [place] ([facility]) Name Value Range Interpretation Code Description Data Bridget rce(s) Supporting Document(s) vitamin B12 level 295 pg/mL 247-911 Vitamin B12 Level [place] ([facility]) ID Date Data Source [id number] 05/17/2020 04:54:00 AM EST [place] ([facility]) Name Value Range Interpretation Code Description Data Bridget rce(s) Supporting Document(s) iron (fe) 185 ug/dL 50-170 Above high normal Iron (Fe) [place] ([facility]) total iron binding capacity 259 ug/dL 250-450 Total Ir on Binding Capacity [place] ([facility]) percent saturation 71.4 % 13.2-45.0 Above high normal Percent Sa turation [place] ([facility]) ID Date Data Source [id number] 05/17/2020 04:54:00 AM EST [place] ([facility]) Name Value Range Interpretation Code Description Data Bridget rce(s) Supporting Document(s) magnesium level 1.9 mg/dL 1.8-2.4 Magnesium Level [facility] ([facility]) ID Date Data Source [id number] 05/17/2020 04:54:00 AM EST [place] ([facility]) Name Value Range Interpretation Code Description Data Bridget rce(s) Supporting Document(s) phosphorus level 6.7 mg/dL 2.5-4.9 Above high normal Phosphorus L kaykay [place] ([facility]) ID Date Data Source [id number] 05/17/2020 04:54:00 AM EST [place] ([facility]) Name Value Range Interpretation Code Description Data Bridget rce(s) Supporting Document(s) glucose, fasting 163 mg/dL 70-100 Above high normal Glucose, Fas ting [place] ([facility]) blood urea nitrogen 79 mg/dL 7-18 Above high normal Blood Ure a Nitrogen [place] ([facility]) creatinine for GFR 3.38 mg/dL 0.55-1.30 Above high normal Creatinine for GFR [place] ([facility]) glomerular filtration rate >39 Below low normal Anay merular Filtration Rate [place] ([facility]) sodium level 140 mEq/L 136-145 Sodium Level [place] ([facility]) potassium serum 4.1 mEq/L 3.5-5.1 Potassium Serum [place] ([facility]) carbon dioxide level 27 mEq/L 21-32 Carbon Dioxide Level [place] ([facility]) chloride level 107 mEq/L 98-107 Chloride Level [place] ([facility]) calcium level 7.5 mg/dL 8.8-10.2 Below low normal Calcium Level AT [facility] ([facility]) anion gap 6 mEq/L 8-16 Below low normal Anion Gap [place] ( [facility]) AST/SGOT 5 U/L 7-37 Below low normal AST/SGOT [place] ( [facility]) alkaline phosphatase 54 U/L 45-117 Alkaline Phosph atase [place] ([facility] [facility]) ALT/SGPT 7 U/L 12-78 Below low normal ALT/SGPT [place] ( [facility]) bilirubin,total 0.8 mg/dL 0.2-1.0 Bilirubin,total [facility] ([facility]) total protein 5.0 gm/dL 6.4-8.2 Below low normal Total Protein AT [facility] ([facility]) albumin 2.6 gm/dL 3.2-5.2 Below low normal Albumin [place] ( [facility]) albumin/globulin ratio 1.2-2.2 Below low normal Albumin /globulin Ratio [place] ([facility]) ID Date Data Source [id number] 05/17/2020 04:54:00 AM EST [place] ([facility]) Name Value Range Interpretation Code Description Data Bridget rce(s) Supporting Document(s) white blood count 4.2 10 4.0-10.0 White Blood Count [place] ([facility]) hemoglobin 8.2 g/dL 12.0-15.5 Below low normal Hemoglobin [place] ( [facility]) red blood count 2.77 10 4.00-5.40 Below low normal Red Blood Coun t [place] ([facility]) hematocrit 24.6 % 36.0-47.0 Below low normal Hematocrit [place] ( [facility]) mean corpuscular hemoglobin 29.6 pg 27.0-33.0 Mean Cor puscular Hemoglobin [place] ([facility]) mean corpuscular volume 88.8 fL 80.0-96.0 Mean Corpusc ular Volume [place] ([facility]) mean corpuscular HGB conc 33.3 g/dL 32.0-36.5 Mean Corpu scular HGB Conc [place] ([facility]) red cell distribution width 13.2 % 11.5-14.5 Red Cell Distribution Width [place] ([facility]) platelet count, automated 141 10 150-450 Below low desi l Platelet Count, Automated [place] ([facility]) nucleated red blood cell % 0.0 % 0-0 Nucleated Red Blood Cell % [place] ([facility]) ID Date Data Source [id number] 05/17/2020 04:53:00 AM EST [place] ([facility]) Name Value Range Interpretation Code Description Data Bridget rce(s) Supporting Document(s) ID Date Data Source [id number] 05/17/2020 04:53:00 AM EST [place] ([facility]) Name Value Range Interpretation Code Description Data Bridget rce(s) Supporting Document(s) appearance, urine clear clear Appearance, Urine [place] ([facility]) color, urine straw yellow Color, Urine [place] ([facility]) pH,urine 6.0 units 5.0-9.0 pH,urine [place] ([facility]) specific gravity urine auto 1.002-1.035 Specifi c [place] Urine Auto [place] ([facility]) glucose, urine (UA) auto negative negative Glucose, Ur ine (UA) Auto [place] ([facility]) protein, urine auto negative negative Protein, Urine A uto [place] ([facility]) ketone, urine auto negative negative Ketone, Urine Aut o [place] ([facility]) urobilinogen, urine auto 0.2 mg/dL 0.0-2.0 Urobilinoge n, Urine Auto [place] ([facility]) nitrite, urine auto negative negative Nitrite, Urine A uto [place] ([facility]) bilirubin, urine auto negative negative Bilirubin, Uri ne Auto [place] ([facility]) leukocyte esterase, urine auto negative negative Leukocyte Esterase, Urine Auto [place] ([facility]) WBC, urine auto 1 /hpf 0-3 WBC, Urine Auto [facility] NA ([facility]) blood, urine blood negative negative Blood, Urine Bloo d [place] ([facility]) RBC, urine auto 2 /hpf 0-3 RBC, Urine Auto [place] NA ([facility]) bacteria, urine auto 1+ negative Above high normal Bacteria , Urine Auto [place] ([facility]) squamous epithelial cell ur AU 0 /hpf 0-6 Squam ous Epithelial Cell Ur AU [place] ([facility]) mucus, urine small negative Mucus, Urine [place] ([facility]) hyaline cast, urine auto 0 /lpf 0-1 Hyaline Brian t, Urine Auto [place] ([facility]) ID Date Data Source [id number] 05/17/2020 04:53:00 AM EST [place] ([facility]) Name Value Range Interpretation Code Description Data Bridget rce(s) Supporting Document(s) ID Date Data Source [id number] 05/17/2020 04:53:00 AM EST [place] ([facility]) Name Value Range Interpretation Code Description Data Bridget rce(s) Supporting Document(s) appearance, urine clear clear Appearance, Urine [place] ([facility]) pH,urine 6.0 units 5.0-9.0 pH,urine [place] ([facility]) color, urine straw yellow Color, Urine [place] ([facility]) protein, urine auto negative negative Protein, Urine A uto [place] ([facility]) specific gravity urine auto 1.002-1.035 Specifi c [place] Urine Auto [place] ([facility]) glucose, urine (UA) auto negative negative Glucose, Ur ine (UA) Auto [place] ([facility]) urobilinogen, urine auto 0.2 mg/dL 0.0-2.0 Urobilinoge n, Urine Auto [place] ([facility]) ketone, urine auto negative negative Ketone, Urine Aut o [place] ([facility]) nitrite, urine auto negative negative Nitrite, Urine A uto [place] ([facility]) bilirubin, urine auto negative negative Bilirubin, Uri ne Auto [place] ([facility]) leukocyte esterase, urine auto negative negative Leukocyte Esterase, Urine Auto [place] ([facility]) blood, urine blood negative negative Blood, Urine Bloo d [place] ([facility]) WBC, urine auto 1 /hpf 0-3 WBC, Urine Auto [facility] NA ([facility]) bacteria, urine auto 1+ negative Above high normal Bacteria , Urine Auto [place] ([facility]) RBC, urine auto 2 /hpf 0-3 RBC, Urine Auto [facility] [place] ([facility]) mucus, urine small negative Mucus, Urine [place] ([facility]) squamous epithelial cell ur AU 0 /hpf 0-6 Squam ous Epithelial Cell Ur AU [place] ([facility]) hyaline cast, urine auto 0 /lpf 0-1 Hyaline Brian t, Urine Auto [place] ([facility]) ID Date Data Source [id number] 05/16/2020 04:42:00 PM EST [place] ([facility]) Name Value Range Interpretation Code Description Data Bridget rce(s) Supporting Document(s) white blood count 6.2 10 4.0-10.0 White Blood Count [place] ([facility]) red blood count 2.58 10 4.00-5.40 Below low normal Red Blood Coun t [place] ([facility]) hemoglobin 7.4 g/dL 12.0-15.5 Below low normal Hemoglobin [place] ( [facility]) hematocrit 23.3 % 36.0-47.0 Below low normal Hematocrit [place] ( [facility]) mean corpuscular volume 90.3 fL 80.0-96.0 Mean Corpusc ular Volume [place] ([facility]) mean corpuscular hemoglobin 28.7 pg 27.0-33.0 Mean Cor puscular Hemoglobin [place] ([facility]) mean corpuscular HGB conc 31.8 g/dL 32.0-36.5 Below low desi l Mean Corpuscular HGB Conc [place] ([facility]) red cell distribution width 13.7 % 11.5-14.5 Red Cell Distribution Width [place] ([facility]) platelet count, automated 186 10 150-450 Platelet C ount, Automated [place] ([facility]) nucleated red blood cell % 0.0 % 0-0 Nucleated Red Blood Cell % [place] ([facility]) ID Date Data Source [id number] 05/16/2020 04:42:00 PM EST [place] ([facility]) Name Value Range Interpretation Code Description Data Bridget rce(s) Supporting Document(s) glucose, fasting 121 mg/dL 70-100 Above high normal Glucose, Fas ting [place] ([facility]) blood urea nitrogen 91 mg/dL 7-18 Above high normal Blood Ure a Nitrogen [place] ([facility]) creatinine for GFR 6.12 mg/dL 0.55-1.30 Above high normal Creatinine for GFR [place] ([facility]) glomerular filtration rate >39 Below low normal Anay merular Filtration Rate [place] ([facility]) sodium level 140 mEq/L 136-145 Sodium Level [place] ([facility]) chloride level 111 mEq/L 98-107 Above high normal Chloride Level [place] ([facility]) potassium serum 4.1 mEq/L 3.5-5.1 Potassium Serum [place] ([facility]) anion gap 7 mEq/L 8-16 Below low normal Anion Gap [place] ( [facility]) carbon dioxide level 22 mEq/L 21-32 Carbon Dioxide Level [place] ([facility]) calcium level 6.6 mg/dL 8.8-10.2 Below low normal Calcium Level AT [facility]) ID Date Data Source [id number] 05/16/2020 04:42:00 PM EST [place] ([facility]) Name Value Range Interpretation Code Description Data Bridget rce(s) Supporting Document(s) white blood count 6.2 10 4.0-10.0 White Blood Count [place] ([facility]) hemoglobin 7.4 g/dL 12.0-15.5 Below low normal Hemoglobin [place] ( [facility]) red blood count 2.58 10 4.00-5.40 Below low normal Red Blood Coun t [place] ([facility]) mean corpuscular volume 90.3 fL 80.0-96.0 Mean Corpusc ular Volume [place] ([facility]) hematocrit 23.3 % 36.0-47.0 Below low normal Hematocrit [place] ( [facility]) mean corpuscular HGB conc 31.8 g/dL 32.0-36.5 Below low desi l Mean Corpuscular HGB Conc [place] ([facility]) mean corpuscular hemoglobin 28.7 pg 27.0-33.0 Mean Cor puscular Hemoglobin [place] ([facility]) red cell distribution width 13.7 % 11.5-14.5 Red Cell Distribution Width [place] ([facility]) platelet count, automated 186 10 150-450 Platelet C ount, Automated [place] ([facility]) nucleated red blood cell % 0.0 % 0-0 Nucleated Red Blood Cell % [place] ([facility]) ID Date Data Source [id number] 05/16/2020 04:42:00 PM EST [place] ([facility]) Name Value Range Interpretation Code Description Data Bridget rce(s) Supporting Document(s) blood urea nitrogen 91 mg/dL 7-18 Above high normal Blood Ure a Nitrogen [place] ([facility]) glucose, fasting 121 mg/dL 70-100 Above high normal Glucose, Fas ting [place] ([facility]) glomerular filtration rate >39 Below low normal Anay merular Filtration Rate [place] ([facility]) creatinine for GFR 6.12 mg/dL 0.55-1.30 Above high normal Creatinine for GFR [place] ([facility]) sodium level 140 mEq/L 136-145 Sodium Level [place] ([facility]) potassium serum 4.1 mEq/L 3.5-5.1 Potassium Serum [place] NA ([facility]) carbon dioxide level 22 mEq/L 21-32 Carbon Dioxide Level [place] ([facility]) chloride level 111 mEq/L 98-107 Above high normal Chloride Level [place] ([facility]) anion gap 7 mEq/L 8-16 Below low normal Anion Gap [place] ( [facility]) calcium level 6.6 mg/dL 8.8-10.2 Below low normal Calcium Level AT [facility] ([facility]) ID Date Data Source [id number] 05/16/2020 12:38:00 PM EST [place] ([facility]) Name Value Range Interpretation Code Description Data Bridget rce(s) Supporting Document(s) antigen identification K antigen: negative Anti gen Identification [place] ([facility]) ID Date Data Source [id number] 05/16/2020 12:38:00 PM EST [facility]) Name Value Range Interpretation Code Description Data Bridget rce(s) Supporting Document(s) antibody identification anti-K Antibody Lachelle ntification [place] ([facility]) ID Date Data Source [id number] 05/16/2020 12:38:00 PM EST [facility]) Name Value Range Interpretation Code Description Data Bridget rce(s) Supporting Document(s) blood type O negative Blood Type [place] ([facility]) Ab screen (indirect shahid)vis positive Ab Sc reen (Indirect Shahid)vis [place] ([facility]) ID Date Data Source [id number] 05/16/2020 12:38:00 PM EST [place] ([facility]) Name Value Range Interpretation Code Description Data Bridget rce(s) Supporting Document(s) packed cells transfused product: packed cells count: 1 Packed Cells [place] ([facility]) ID Date Data Source [id number] 05/16/2020 12:38:00 PM EST [place] ([facility]) Name Value Range Interpretation Code Description Data Bridget rce(s) Supporting Document(s) antigen identification K antigen: negative Anti gen Identification [place] ([facility]) ID Date Data Source [id number] 05/16/2020 12:38:00 PM EST [place] ([facility]) Name Value Range Interpretation Code Description Data Bridget rce(s) Supporting Document(s) antibody identification anti-K Antibody Lachelle ntification [place] ([facility]) ID Date Data Source [id number] 05/16/2020 12:38:00 PM EST [place] ([facility]) Name Value Range Interpretation Code Description Data Bridget rce(s) Supporting Document(s) Ab screen (indirect shahid)vis positive Ab Sc reen (Indirect Shahid)vis [place] ([facility]) blood type O negative Blood Type [place] ([facility]) ID Date Data Source [id number] 05/16/2020 12:38:00 PM EST [place] ([facility]) Name Value Range Interpretation Code Description Data Bridget rce(s) Supporting Document(s) packed cells transfused product: packed cells count: 1 Packed Cells [place] ([facility]) ID Date Data Source [id number] 05/16/2020 10:43:00 AM EST [place] ([facility]) Name Value Range Interpretation Code Description Data Bridget rce(s) Supporting Document(s) ID Date Data Source [id number] 05/16/2020 10:43:00 AM EST [place] ([facility]) Name Value Range Interpretation Code Description Data Bridget rce(s) Supporting Document(s) ID Date Data Source [id number] 05/16/2020 10:38:00 AM EST [place] ([facility]) Name Value Range Interpretation Code Description Data Bridget rce(s) Supporting Document(s) ID Date Data Source [id number] 05/16/2020 10:38:00 AM EST [place] ([facility]) Name Value Range Interpretation Code Description Data Bridget rce(s) Supporting Document(s) procalcitonin <0.05 [facility] Date Data Source [id number] 05/16/2020 10:38:00 AM EST [place] ([facility]) Name Value Range Interpretation Code Description Data Bridget rce(s) Supporting Document(s) ID Date Data Source [id number] 05/16/2020 10:38:00 AM EST [place] [facility]) Name Value Range Interpretation Code Description Data Bridget rce(s) Supporting Document(s) procalcitonin <0.05 Procalcitonin [place] ( [facility]) ID Date Data Source [id number] 05/16/2020 10:11:00 AM EST [place] ([facility]) Name Value Range Interpretation Code Description Data Bridget rce(s) Supporting Document(s) magnesium level 2.2 mg/dL 1.8-2.4 Magnesium Level AT[facility]) ID Date Data Source [id number] 05/16/2020 10:11:00 AM EST [place] [facility]) Name Value Range Interpretation Code Description Data Bridget rce(s) Supporting Document(s) phosphorus level 7.7 mg/dL 2.5-4.9 Above high normal Phosphorus L kaykay [place] ([facility]) ID Date Data Source [id number] 05/16/2020 10:11:00 AM EST [place] ([facility]) Name Value Range Interpretation Code Description Data Bridget rce(s) Supporting Document(s) glucose, fasting 90 mg/dL 70-100 Glucose, Fasting AT [facility]) blood urea nitrogen 100 mg/dL 7-18 Above high normal Blood Ure a Nitrogen [place] ([facility]) glomerular filtration rate >39 Below low normal Anay merular Filtration Rate [place] ([facility]) creatinine for GFR 7.63 mg/dL 0.55-1.30 Above high normal Creatinine for GFR [place] ([facility]) sodium level 142 mEq/L 136-145 Sodium Level [place] ([facility]) chloride level 114 mEq/L 98-107 Above high normal Chloride Level [place] ([facility]) potassium serum 4.6 mEq/L 3.5-5.1 Potassium Serum [facility] ([facility]) carbon dioxide level 18 mEq/L 21-32 Below low normal Carbon Di oxide Level [place] ([facility]) calcium level 6.6 mg/dL 8.8-10.2 Below low normal Calcium Level AT [facility]) anion gap 10 mEq/L 8-16 Anion Gap [place] ([facility]) AST/SGOT 4 U/L 7-37 Below low normal AST/SGOT [place] ( [facility]) alkaline phosphatase 60 U/L 45-117 Alkaline Phosph atase [facility]) ALT/SGPT < 6 12-78 Below low normal ALT/SGPT [facility]) total protein 5.0 gm/dL 6.4-8.2 Below low normal Total Protein AT [facility]) bilirubin,total 0.4 mg/dL 0.2-1.0 Bilirubin,total [place] ([facility]) albumin 2.8 gm/dL 3.2-5.2 Below low normal Albumin [place] ( [facility]) albumin/globulin ratio 1.2-2.2 Albumin/globu ray Ratio [place] ([facility]) ID Date Data Source [id number] 05/16/2020 10:11:00 AM EST [place] ([facility]) Name Value Range Interpretation Code Description Data Bridget rce(s) Supporting Document(s) white blood count 6.5 10 4.0-10.0 White Blood Count [place] ([facility]) red blood count 2.59 10 4.00-5.40 Below low normal Red Blood Coun t [place] ([facility]) hematocrit 24.0 % 36.0-47.0 Below low normal Hematocrit [place] ( [facility]) hemoglobin 7.6 g/dL 12.0-15.5 Below low normal Hemoglobin [place] ( [facility]) mean corpuscular volume 92.7 fL 80.0-96.0 Mean Corpusc ular Volume [place] ([facility]) mean corpuscular HGB conc 31.7 g/dL 32.0-36.5 Below low desi l Mean Corpuscular HGB Conc [place] ([facility]) mean corpuscular hemoglobin 29.3 pg 27.0-33.0 Mean Cor puscular Hemoglobin [place] ([facility]) red cell distribution width 13.9 % 11.5-14.5 Red Cell Distribution Width [place] ([facility]) platelet count, automated 172 10 150-450 Platelet C ount, Automated [place] ([facility]) nucleated red blood cell % 0.0 % 0-0 Nucleated Red Blood Cell % [place] ([facility]) ID Date Data Source [id number] 05/16/2020 10:11:00 AM EST [place] ([facility]) Name Value Range Interpretation Code Description Data Bridget rce(s) Supporting Document(s) magnesium level 2.2 mg/dL 1.8-2.4 Magnesium Level AT[facility] NA ([facility]) ID Date Data Source [id number] 05/16/2020 10:11:00 AM EST [place] ([facility]) Name Value Range Interpretation Code Description Data Bridget rce(s) Supporting Document(s) phosphorus level 7.7 mg/dL 2.5-4.9 Above high normal Phosphorus L kaykay [place] ([facility]) ID Date Data Source [id number] 05/16/2020 10:11:00 AM EST [place] ([facility]) Name Value Range Interpretation Code Description Data Bridget rce(s) Supporting Document(s) glucose, fasting 90 mg/dL 70-100 Glucose, Fasting AT [facility]) blood urea nitrogen 100 mg/dL 7-18 Above high normal Blood Ure a Nitrogen [place] ([facility]) creatinine for GFR 7.63 mg/dL 0.55-1.30 Above high normal Creatinine for GFR [place] ([facility]) glomerular filtration rate >39 Below low normal Anay merular Filtration Rate [place] ([facility]) sodium level 142 mEq/L 136-145 Sodium Level [place] ([facility]) potassium serum 4.6 mEq/L 3.5-5.1 Potassium Serum [facility] NA ([facility]) chloride level 114 mEq/L 98-107 Above high normal Chloride Level [place] ([facility]) carbon dioxide level 18 mEq/L 21-32 Below low normal Carbon Di oxide Level [place] ([facility]) calcium level 6.6 mg/dL 8.8-10.2 Below low normal Calcium Level AT [facility]) anion gap 10 mEq/L 8-16 Anion Gap [place] ([facility]) AST/SGOT 4 U/L 7-37 Below low normal AST/SGOT [place] ( [facility]) ALT/SGPT < 6 12-78 Below low normal ALT/SGPT [place] ( [facility]) alkaline phosphatase 60 U/L 45-117 Alkaline Phosph atase [place] ([facility]) total protein 5.0 gm/dL 6.4-8.2 Below low normal Total Protein AT [facility]) albumin 2.8 gm/dL 3.2-5.2 Below low normal Albumin [place] ( [facility]) albumin/globulin ratio 1.2-2.2 Albumin/globu ray Ratio [place] ([facility]) ID Date Data Source [id number] 05/16/2020 10:11:00 AM EST [place] ([facility]) Name Value Range Interpretation Code Description Data Bridget rce(s) Supporting Document(s) white blood count 6.5 10 4.0-10.0 White Blood Count [place] ([facility]) red blood count 2.59 10 4.00-5.40 Below low normal Red Blood Coun t [place] ([facility]) hematocrit 24.0 % 36.0-47.0 Below low normal Hematocrit [place] ( [facility]) hemoglobin 7.6 g/dL 12.0-15.5 Below low normal Hemoglobin [place] ( [facility]) mean corpuscular hemoglobin 29.3 pg 27.0-33.0 Mean Cor puscular Hemoglobin [place] ([facility]) mean corpuscular HGB conc 31.7 g/dL 32.0-36.5 Below low desi l Mean Corpuscular HGB Conc [place] ([facility]) mean corpuscular volume 92.7 fL 80.0-96.0 Mean Corpusc ular Volume [place] ([facility]) red cell distribution width 13.9 % 11.5-14.5 Red Cell Distribution Width [place] ([facility]) platelet count, automated 172 10 150-450 Platelet C ount, Automated [place] ([facility]) nucleated red blood cell % 0.0 % 0-0 Nucleated Red Blood Cell % [place] ([facility]) ID Date Data Source [id number] 05/16/2020 06:08:00 AM EST [place] ([facility]) Name Value Range Interpretation Code Description Data Bridget rce(s) Supporting Document(s) ABG pH (arterial) 7.151 units 7.350-7.450 Below low normal ABG pH (Ar terial) [place] ([facility]) ABG partial pressure O2 119.0 mmHg 75.0-100.0 Above high normal ABG Partial Pressure O2 [place] ([facility]) ABG partial pressure CO2 24.1 mmHg 35.0-45.0 Below low normal ABG Partial Pressure CO2 [place] ([facility]) ABG total CO2 9.0 mEq/L 23.0-31.0 Below low normal ABG Total CO2 AT [facility] ([facility]) ABG base excess -2.0-2.0 Below low normal ABG Base Exces s [place] ([facility]) ABG HCO3 8.2 mEq/L 22.0-26.0 Below low normal Abg Hco3 [facility]) ABG standard HCO3 9.8 mEq/L 22.0-26.0 Below low normal ABG Standard HCO3 [place] ([facility]) ABG O2 saturation 97.4 % 95.0-99.0 ABG O2 Saturation [facility]) ID Date Data Source [id number] 05/16/2020 06:08:00 AM EST [facility]) Name Value Range Interpretation Code Description Data Bridget rce(s) Supporting Document(s) ABG partial pressure CO2 24.1 mmHg 35.0-45.0 Below low normal ABG Partial Pressure CO2 [place] ([facility]) ABG pH (arterial) 7.151 units 7.350-7.450 Below low normal ABG pH (Ar terial) [place] ([facility]) ABG total CO2 9.0 mEq/L 23.0-31.0 Below low normal ABG Total CO2 AT [facility]) ABG partial pressure O2 119.0 mmHg 75.0-100.0 Above high normal ABG Partial Pressure O2 [place] ([facility]) ABG base excess -2.0-2.0 Below low normal ABG Base Exces s [place] ([facility]) ABG HCO3 8.2 mEq/L 22.0-26.0 Below low normal Abg Hco3 [place] ( [facility]) ABG standard HCO3 9.8 mEq/L 22.0-26.0 Below low normal ABG Standard HCO3 [place] ([facility]) ABG O2 saturation 97.4 % 95.0-99.0 ABG O2 Saturation [facility]) ID Date Data Source [id number] 05/16/2020 02:59:00 AM EST [place] ([facility]) Name Value Range Interpretation Code Description Data Bridget rce(s) Supporting Document(s) glucose, fasting 95 mg/dL 70-100 Glucose, Fasting AT [facility]) blood urea nitrogen 115 mg/dL 7-18 Above high normal Blood Ure a Nitrogen [facility]) creatinine for GFR 11.00 mg/dL 0.55-1.30 Above high normal Creatinin e for GFR [place] ([facility]) sodium level 139 mEq/L 136-145 Sodium Level [place] ([facility]) glomerular filtration rate >39 Below low normal Anay merular Filtration Rate [place] ([facility]) potassium serum 4.6 mEq/L 3.5-5.1 [facility] carbon dioxide level 17 mEq/L 21-32 Below low normal Carbon Di oxide Level [place] ([facility]) chloride level 109 mEq/L 98-107 Above high normal Chloride Level [place] ([facility]) calcium level 7.4 mg/dL 8.8-10.2 Below low normal Calcium Level AT [facility]) anion gap 13 mEq/L 8-16 Anion Gap [place] ([facility]) ID Date Data Source [id number] 05/16/2020 02:59:00 AM EST [facility]) Name Value Range Interpretation Code Description Data Bridget rce(s) Supporting Document(s) glucose, fasting 95 mg/dL 70-100 Glucose, Fasting AT [facility]) blood urea nitrogen 115 mg/dL 7-18 Above high normal Blood Ure a Nitrogen [place] ([facility]) creatinine for GFR 11.00 mg/dL 0.55-1.30 Above high normal Creatinin e for GFR [place] ([facility]) glomerular filtration rate >39 Below low normal Anay merular Filtration Rate [place] ([facility]) potassium serum 4.6 mEq/L 3.5-5.1 Potassium Serum [place] [place] ([facility]) sodium level 139 mEq/L 136-145 Sodium Level [place] ([facility]) carbon dioxide level 17 mEq/L 21-32 Below low normal Carbon Di oxide Level [place] ([facility]) chloride level 109 mEq/L 98-107 Above high normal Chloride Level [place] ([facility]) calcium level 7.4 mg/dL 8.8-10.2 Below low normal Calcium Level AT [facility] ([facility]) anion gap 13 mEq/L 8-16 Anion Gap [place] ([facility]) ID Date Data Source [id number] 05/16/2020 12:00:00 AM EST [place] ([facility]) Name Value Range Interpretation Code Description Data Bridget rce(s) Supporting Document(s) bedside glucose 93 mg/dL 83-110 Bedside Glucose [place] ([facility]) ID Date Data Source [id number] 05/16/2020 12:00:00 AM EST [place] ([facility]) Name Value Range Interpretation Code Description Data Bridget rce(s) Supporting Document(s) bedside glucose 93 mg/dL 83-110 Bedside Glucose [place] ([facility]) ID Date Data Source [id number] 05/15/2020 09:25:00 PM EST [place] ([facility]) Name Value Range Interpretation Code Description Data Bridget rce(s) Supporting Document(s) glucose, fasting 109 mg/dL 70-100 Above high normal Glucose, Fas ting [place] ([facility]) glomerular filtration rate >39 Below low normal Anay merular Filtration Rate [place] ([facility]) blood urea nitrogen 128 mg/dL 7-18 Above high normal Blood Ure a Nitrogen [place] ([facility]) creatinine for GFR 13.30 mg/dL 0.55-1.30 Above high normal Creatinin e for GFR [place] ([facility]) sodium level 132 mEq/L 136-145 Below low normal Sodium Level [place] ([facility]) carbon dioxide level 14 mEq/L 21-32 Below low normal Carbon Di oxide Level [place] ([facility]) chloride level 102 mEq/L 98-107 Chloride Level [place] ([facility]) potassium serum 6.1 mEq/L 3.5-5.1 Above high normal Potassium Ser um [place] ([facility]) anion gap 16 mEq/L 8-16 Anion Gap [place] ([facility]) calcium level 8.8 mg/dL 8.8-10.2 Calcium Level [place] ( [facility]) ID Date Data Source [id number] 05/15/2020 09:25:00 PM EST [place] ([facility]) Name Value Range Interpretation Code Description Data Bridget rce(s) Supporting Document(s) white blood count 7.6 10 4.0-10.0 White Blood Count [place] ([facility]) hemoglobin 10.3 g/dL 12.0-15.5 Below low normal Hemoglobin [place] ( [facility]) red blood count 3.56 10 4.00-5.40 Below low normal Red Blood Coun t [place] ([facility]) hematocrit 32.8 % 36.0-47.0 Below low normal Hematocrit [place] ( [facility]) mean corpuscular hemoglobin 28.9 pg 27.0-33.0 Mean Cor puscular Hemoglobin [place] ([facility]) mean corpuscular volume 92.1 fL 80.0-96.0 Mean Corpusc ular Volume [place] ([facility]) red cell distribution width 13.7 % 11.5-14.5 Red Cell Distribution Width [place] ([facility]) mean corpuscular HGB conc 31.4 g/dL 32.0-36.5 Below low desi l Mean Corpuscular HGB Conc [place] ([facility]) neutrophils % 57.0 % 36.0-66.0 Neutrophils % [place] ( [facility]) platelet count, automated 251 10 150-450 Platelet C ount, Automated [place] ([facility]) lymph % 31.1 % 24.0-44.0 Lymph % [place] ([facility]) mono % 11.0 % 0.0-5.0 Above high normal [place] % [place] ([facility]) eos % 0.0 % 0.0-3.0 Eos % [place] ([facility]) baso % 0.4 % 0.0-1.0 Baso % [place] ([facility]) neutrophils # 4.3 10 1.5-8.5 Neutrophils # [place] ( [facility]) nucleated red blood cell % 0.0 % 0-0 Nucleated Red Blood Cell % [place] ([facility]) immature granulocyte % 0.5 % 0-3.0 Immature Gran ulocyte % [place] ([facility]) mono # 0.8 10 0.0-0.8 [place] # [place] ([facility]) lymph # 2.4 10 1.5-5.0 Lymph # [place] ([facility]) eos # 0.0 10 0.0-0.5 Eos # [place] ([facility]) baso # 0.0 10 0.0-0.2 Baso # [place] ([facility]) ID Date Data Source [id number] 05/15/2020 09:25:00 PM EST [place] ([facility]) Name Value Range Interpretation Code Description Data Bridget rce(s) Supporting Document(s) blood urea nitrogen 128 mg/dL 7-18 Above high normal Blood Ure a Nitrogen [place] ([facility]) creatinine for GFR 13.30 mg/dL 0.55-1.30 Above high normal Creatinin e for GFR [place] ([facility]) glucose, fasting 109 mg/dL 70-100 Above high normal Glucose, Fas ting [place] ([facility]) potassium serum 6.1 mEq/L 3.5-5.1 Above high normal Potassium Ser um [place] ([facility]) glomerular filtration rate >39 Below low normal Anay merular Filtration Rate [place] ([facility]) chloride level 102 mEq/L 98-107 Chloride Level [place] ([facility]) sodium level 132 mEq/L 136-145 Below low normal Sodium Level [place] ([facility]) calcium level 8.8 mg/dL 8.8-10.2 Calcium Level [place] ( [facility]) carbon dioxide level 14 mEq/L 21-32 Below low normal Carbon Di oxide Level [place] ([facility]) anion gap 16 mEq/L 8-16 Anion Gap [place] ([facility]) ID Date Data Source [id number] 05/15/2020 09:25:00 PM EST [facility]) Name Value Range Interpretation Code Description Data Bridget rce(s) Supporting Document(s) hematocrit 32.8 % 36.0-47.0 Below low normal Hematocrit [place] ( [facility]) hemoglobin 10.3 g/dL 12.0-15.5 Below low normal Hemoglobin [place] ( [facility]) white blood count 7.6 10 4.0-10.0 White Blood Count [place] ([facility]) red blood count 3.56 10 4.00-5.40 Below low normal Red Blood Coun t [facility]) mean corpuscular volume 92.1 fL 80.0-96.0 Mean Corpusc ular Volume [place] ([facility]) mean corpuscular hemoglobin 28.9 pg 27.0-33.0 Mean Cor puscular Hemoglobin [place] ([facility]) mean corpuscular HGB conc 31.4 g/dL 32.0-36.5 Below low desi l Mean Corpuscular HGB Conc [place] ([facility]) platelet count, automated 251 10 150-450 [facility] neutrophils % 57.0 % 36.0-66.0 Neutrophils % [place] ( [facility]) lymph % 31.1 % 24.0-44.0 Lymph % [place] ([facility]) red cell distribution width 13.7 % 11.5-14.5 Red Cell Distribution Width [place] ([facility]) mono % 11.0 % 0.0-5.0 Above high normal [place] % [place] ([facility]) immature granulocyte % 0.5 % 0-3.0 Immature Gran ulocyte % [place] ([facility]) eos % 0.0 % 0.0-3.0 Eos % [place] ([facility]) baso % 0.4 % 0.0-1.0 Baso % [place] ([facility]) neutrophils # 4.3 10 1.5-8.5 Neutrophils # [place] ( [facility]) mono # 0.8 10 0.0-0.8 [place] # [place] ([facility]) nucleated red blood cell % 0.0 % 0-0 Nucleated Red Blood Cell % [place] ([facility]) lymph # 2.4 10 1.5-5.0 Lymph # [place] ([facility]) baso # 0.0 10 0.0-0.2 Baso # [place] ([facility]) eos # 0.0 10 0.0-0.5 Eos # [place] ([facility]) ID Date Data Source [id number] 05/15/2020 03:45:00 PM EST [place] ([facility]) Name Value Range Interpretation Code Description Data Bridget rce(s) Supporting Document(s) thyroid stimulating hormone 0.937 uIU/mL 0.358-3.740 Thyroid Stimulating Hormone [place] ([facility]) ID Date Data Source [id number] 05/15/2020 03:45:00 PM EST [place] ([facility]) Name Value Range Interpretation Code Description Data Bridget rce(s) Supporting Document(s) acetaminophen level < 2.0 10.0-30.0 Below low normal Acetaminop hen Level [place] ([facility]) ID Date Data Source [id number] 05/15/2020 03:45:00 PM EST [place] ([facility]) Name Value Range Interpretation Code Description Data Bridget rce(s) Supporting Document(s) salicylate level < 1.7 5.0-30.0 Below low normal Salicylate Le gabriel [place] ([facility]) ID Date Data Source [id number] 05/15/2020 03:45:00 PM EST [place] ([facility]) Name Value Range Interpretation Code Description Data Bridget rce(s) Supporting Document(s) ethyl alcohol (ethanol) < 0.003 0.000-0.010 Ethyl Alcoh ol (Ethanol) [place] ([facility]) ID Date Data Source [id number] 05/15/2020 03:45:00 PM EST [place] ([facility]) Name Value Range Interpretation Code Description Data Bridget rce(s) Supporting Document(s) glucose, fasting 99 mg/dL 70-100 Glucose, Fasting AT [facility]) blood urea nitrogen 125 mg/dL 7-18 Above high normal Blood Ure a Nitrogen [place] ([facility]) creatinine for GFR 13.40 mg/dL 0.55-1.30 Above high normal Creatinin e for GFR [place] ([facility]) glomerular filtration rate >39 Below low normal Anay merular Filtration Rate [place] ([facility]) sodium level 127 mEq/L 136-145 Below low normal Sodium Level [place] ([facility]) potassium serum 8.1 mEq/L 3.5-5.1 Above high normal Potassium Ser um [place] ([facility]) chloride level 101 mEq/L 98-107 Chloride Level [place] ([facility]) carbon dioxide level 11 mEq/L 21-32 Below low normal Carbon Di oxide Level [place] ([facility]) anion gap 15 mEq/L 8-16 Anion Gap [place] ([facility]) calcium level 8.7 mg/dL 8.8-10.2 Below low normal Calcium Level AT [facility] ([facility]) ID Date Data Source [id number] 05/15/2020 03:45:00 PM EST [place] ([facility]) Name Value Range Interpretation Code Description Data Bridget rce(s) Supporting Document(s) ALT/SGPT 9 U/L 12-78 Below low normal ALT/SGPT [place] ( [facility]) AST/SGOT < 3 7-37 Below low normal AST/SGOT [place] ( [facility]) alkaline phosphatase 99 U/L 45-117 Alkaline Phosph atase [place] ([facility]) bilirubin,total 0.4 mg/dL 0.2-1.0 Bilirubin,total [place] ([facility]) bilirubin,direct < 0.1 0.0-0.2 Bilirubin,direct AT [facility] ([facility]) total protein 8.0 gm/dL 6.4-8.2 Total Protein [place] ( [facility]) albumin/globulin ratio 1.2-2.2 Albumin/globu ray Ratio [place] ([facility]) albumin 4.4 gm/dL 3.2-5.2 Albumin [place] ([facility]) ID Date Data Source [id number] 05/15/2020 03:45:00 PM EST [place] ([facility]) Name Value Range Interpretation Code Description Data Bridget rce(s) Supporting Document(s) CPK creatine phosphokinase 41 U/L 26-192 CPK Creat ine Phosphokinase [place] ([facility]) mb/CK relative index < or =4 mb/CK Relative Index [place] ([facility]) CK-mb value mass 1.0 NG/mL <3.6 CK-mb Value Mass AT [facility] ([facility]) troponin I < 0.02 < 0.10 Troponin I [place] ([facility]) ID Date Data Source [id number] 05/15/2020 03:45:00 PM EST [place] ([facility]) Name Value Range Interpretation Code Description Data Bridget rce(s) Supporting Document(s) influenza A amplification negative negative Influenza a Amplification [place] ([facility]) influenza B amplification negative negative Influenza B Amplification [place] ([facility]) sars covid-19 amplification negative negative Sars Cov id-19 Amplification [place] ([facility]) RSV amplification negative negative RSV Amplification [place] ([facility]) ID Date Data Source [id number] 05/15/2020 03:45:00 PM EST [place] ([facility]) Name Value Range Interpretation Code Description Data Bridget rce(s) Supporting Document(s) lactic acid sepsis protocol 0.9 mmol/L 0.4-2.0 Lactic A vicenta Sepsis Protocol [facility]) ID Date Data Source [id number] 05/15/2020 03:45:00 PM EST [place] ([facility]) Name Value Range Interpretation Code Description Data Bridget rce(s) Supporting Document(s) ammonia 11 umol/L <32 Ammonia [place] ([facility]) ID Date Data Source [id number] 05/15/2020 03:45:00 PM EST [place] ([facility]) Name Value Range Interpretation Code Description Data Bridget rce(s) Supporting Document(s) venous partial pressure CO2 37.8 mmHg 38.0-50.0 Below low nor mal Venous Partial Pressure CO2 [place] ([facility]) venous pH 6.975 units 7.330-7.430 Below low normal Venous pH [place] ([facility]) venous partial pressure O2 44.8 mmHg 30.0-50.0 Venous Pa rtial Pressure O2 [place] ([facility]) venous HCO3 8.6 mEq/L 23.0-27.0 Below low normal Venous HCO3 [place] ([facility]) venous total CO2 9.8 mEq/L 24.0-28.0 Below low normal Venous Total CO2 [place] ([facility]) venous base excess -2.0-2.0 Below low normal Venous Base Excess [place] ([facility]) venous O2 saturation 75.4 % 60.0-80.0 Venous O2 Satur ation [place] ([facility]) venous standard HCO3 8.2 mEq/L Venous Standard HCO3 [place] ([facility]) ID Date Data Source [id number] 05/15/2020 03:45:00 PM EST [place] ([facility]) Name Value Range Interpretation Code Description Data Bridget rce(s) Supporting Document(s) white blood count 8.4 10 4.0-10.0 White Blood Count [place] ([facility]) red blood count 3.83 10 4.00-5.40 Below low normal Red Blood Coun t [place] ([facility]) hematocrit 36.4 % 36.0-47.0 Hematocrit [place] ([facility]) hemoglobin 10.9 g/dL 12.0-15.5 Below low normal Hemoglobin [place] ( [facility]) mean corpuscular hemoglobin 28.5 pg 27.0-33.0 Mean Cor puscular Hemoglobin [place] ([facility]) mean corpuscular volume 95.0 fL 80.0-96.0 Mean Corpusc ular Volume [place] ([facility]) mean corpuscular HGB conc 29.9 g/dL 32.0-36.5 Below low desi l Mean Corpuscular HGB Conc [place] ([facility]) red cell distribution width 13.9 % 11.5-14.5 Red Cell Distribution Width [place] ([facility]) lymph % 18.5 % 24.0-44.0 Below low normal Lymph % [place] ( [facility]) platelet count, automated 266 10 150-450 Platelet C ount, Automated [place] ([facility]) neutrophils % 74.1 % 36.0-66.0 Above high normal Neutrophils % [facility] [place] ([facility]) mono % 6.2 % 0.0-5.0 Above high normal [place] % [place] ([facility]) eos % 0.0 % 0.0-3.0 Eos % [place] ([facility]) immature granulocyte % 0.7 % 0-3.0 Immature Gran ulocyte % [place] ([facility]) baso % 0.5 % 0.0-1.0 Baso % [place] ([facility]) neutrophils # 6.2 10 1.5-8.5 Neutrophils # [place] ( [facility]) nucleated red blood cell % 0.0 % 0-0 Nucleated Red Blood Cell % [place] ([facility]) lymph # 1.6 10 1.5-5.0 Lymph # [place] ([facility]) mono # 0.5 10 0.0-0.8 [place] # [place] ([facility]) eos # 0.0 10 0.0-0.5 Eos # [place] ([facility]) baso # 0.0 10 0.0-0.2 Baso # [place] ([facility]) ID Date Data Source [id number] 05/15/2020 03:45:00 PM EST [place] ([facility]) Name Value Range Interpretation Code Description Data Bridget rce(s) Supporting Document(s) thyroid stimulating hormone 0.937 uIU/mL 0.358-3.740 Thyroid Stimulating Hormone [place] ([facility]) ID Date Data Source [id number] 05/15/2020 03:45:00 PM EST [place] ([facility]) Name Value Range Interpretation Code Description Data Bridget rce(s) Supporting Document(s) acetaminophen level < 2.0 10.0-30.0 Below low normal Acetaminop hen Level [place] ([facility]) ID Date Data Source [id number] 05/15/2020 03:45:00 PM EST [place] ([facility]) Name Value Range Interpretation Code Description Data Bridget rce(s) Supporting Document(s) salicylate level < 1.7 5.0-30.0 Below low normal Salicylate Le gabriel [place] ([facility]) ID Date Data Source [id number] 05/15/2020 03:45:00 PM EST [place] ([facility]) Name Value Range Interpretation Code Description Data Bridget rce(s) Supporting Document(s) ethyl alcohol (ethanol) < 0.003 0.000-0.010 Ethyl Alcoh ol (Ethanol) [place] ([facility]) ID Date Data Source [id number] 05/15/2020 03:45:00 PM EST [place] ([facility]) Name Value Range Interpretation Code Description Data Bridget rce(s) Supporting Document(s) glucose, fasting 99 mg/dL 70-100 Glucose, Fasting AT [facility]) glomerular filtration rate >39 Below low normal Anay merular Filtration Rate [place] ([facility]) blood urea nitrogen 125 mg/dL 7-18 Above high normal Blood Ure a Nitrogen [place] ([facility]) creatinine for GFR 13.40 mg/dL 0.55-1.30 Above high normal Creatinin e for GFR [place] ([facility]) carbon dioxide level 11 mEq/L 21-32 Below low normal Carbon Di oxide Level [place] ([facility]) sodium level 127 mEq/L 136-145 Below low normal Sodium Level ATH NA ([facility]) potassium serum 8.1 mEq/L 3.5-5.1 Above high normal Potassium Ser um [place] ([facility]) chloride level 101 mEq/L 98-107 Chloride Level [place] ([facility]) calcium level 8.7 mg/dL 8.8-10.2 Below low normal Calcium Level AT [facility]) anion gap 15 mEq/L 8-16 Anion Gap [place] ([facility]) ID Date Data Source [id number] 05/15/2020 03:45:00 PM EST [facility]) Name Value Range Interpretation Code Description Data Bridget rce(s) Supporting Document(s) AST/SGOT < 3 7-37 Below low normal AST/SGOT [place] ( [facility]) alkaline phosphatase 99 U/L 45-117 Alkaline Phosph atase [place] ([facility]) ALT/SGPT 9 U/L 12-78 Below low normal ALT/SGPT [place] ( [facility]) bilirubin,total 0.4 mg/dL 0.2-1.0 Bilirubin,total ATHE NA ([facility]) albumin 4.4 gm/dL 3.2-5.2 Albumin [place] ([facility]) bilirubin,direct < 0.1 0.0-0.2 Bilirubin,direct AT [facility] ([facility]) albumin/globulin ratio 1.2-2.2 Albumin/globu ray Ratio [place] ([facility]) total protein 8.0 gm/dL 6.4-8.2 Total Protein [place] ( [facility]) ID Date Data Source [id number] 05/15/2020 03:45:00 PM EST [place] ([facility]) Name Value Range Interpretation Code Description Data Bridget rce(s) Supporting Document(s) CK-mb value mass 1.0 NG/mL <3.6 CK-mb Value Mass AT [facility] ([facility]) CPK creatine phosphokinase 41 U/L 26-192 CPK Creat ine Phosphokinase [place] ([facility]) mb/CK relative index < or =4 mb/CK Relative Index [place] ([facility]) troponin I < 0.02 < 0.10 Troponin I [place] ([facility]) ID Date Data Source [id number] 05/15/2020 03:45:00 PM EST [place] ([facility]) Name Value Range Interpretation Code Description Data Bridget rce(s) Supporting Document(s) RSV amplification negative negative RSV Amplification [place] ([facility]) influenza B amplification negative negative Influenza B Amplification [place] ([facility]) influenza A amplification negative negative Influenza a Amplification [place] ([facility]) sars covid-19 amplification negative negative Sars Cov id-19 Amplification [place] ([facility]) ID Date Data Source [id number] 05/15/2020 03:45:00 PM EST [place] ([facility]) Name Value Range Interpretation Code Description Data Bridget rce(s) Supporting Document(s) lactic acid sepsis protocol 0.9 mmol/L 0.4-2.0 Lactic A vicenta Sepsis Protocol [place] ([facility]) ID Date Data Source [id number] 05/15/2020 03:45:00 PM EST [place] ([facility]) Name Value Range Interpretation Code Description Data Bridget rce(s) Supporting Document(s) ammonia 11 umol/L <32 Ammonia [place] ([facility]) ID Date Data Source [id number] 05/15/2020 03:45:00 PM EST [place] ([facility]) Name Value Range Interpretation Code Description Data Bridget rce(s) Supporting Document(s) venous pH 6.975 units 7.330-7.430 Below low normal Venous pH [place] ([facility]) venous partial pressure O2 44.8 mmHg 30.0-50.0 Venous Pa rtial Pressure O2 [place] ([facility]) venous partial pressure CO2 37.8 mmHg 38.0-50.0 Below low nor mal Venous Partial Pressure CO2 [place] ([facility]) venous base excess -2.0-2.0 Below low normal Venous Base Excess [place] ([facility]) venous HCO3 8.6 mEq/L 23.0-27.0 Below low normal Venous HCO3 [place] ([facility]) venous total CO2 9.8 mEq/L 24.0-28.0 Below low normal Venous Total CO2 [place] ([facility]) venous O2 saturation 75.4 % 60.0-80.0 Venous O2 Satur ation [place] ([facility]) venous standard HCO3 8.2 mEq/L Venous Standard HCO3 [place] ([facility]) ID Date Data Source [id number] 05/15/2020 03:45:00 PM EST [place] ([facility]) Name Value Range Interpretation Code Description Data Bridget rce(s) Supporting Document(s) white blood count 8.4 10 4.0-10.0 White Blood Count [place] ([facility]) hemoglobin 10.9 g/dL 12.0-15.5 Below low normal Hemoglobin [place] ( [facility]) hematocrit 36.4 % 36.0-47.0 Hematocrit [place] ([facility]) red blood count 3.83 10 4.00-5.40 Below low normal Red Blood Coun t [place] ([facility]) mean corpuscular hemoglobin 28.5 pg 27.0-33.0 Mean Cor puscular Hemoglobin [place] ([facility]) mean corpuscular volume 95.0 fL 80.0-96.0 Mean Corpusc ular Volume [place] ([facility]) mean corpuscular HGB conc 29.9 g/dL 32.0-36.5 Below low desi l Mean Corpuscular HGB Conc [place] ([facility]) red cell distribution width 13.9 % 11.5-14.5 Red Cell Distribution Width [place] ([facility]) platelet count, automated 266 10 150-450 Platelet C ount, Automated [place] ([facility]) lymph % 18.5 % 24.0-44.0 Below low normal Lymph % [place] ( [facility]) neutrophils % 74.1 % 36.0-66.0 Above high normal Neutrophils % [place] ([facility]) baso % 0.5 % 0.0-1.0 Baso % [place] ([facility]) mono % 6.2 % 0.0-5.0 Above high normal [place] % [place] ([facility]) eos % 0.0 % 0.0-3.0 Eos % [place] ([facility]) nucleated red blood cell % 0.0 % 0-0 Nucleated Red Blood Cell % [place] ([facility]) immature granulocyte % 0.7 % 0-3.0 Immature Gran ulocyte % [place] ([facility]) neutrophils # 6.2 10 1.5-8.5 Neutrophils # [place] ( [facility]) mono # 0.5 10 0.0-0.8 [place] # [place] ([facility]) lymph # 1.6 10 1.5-5.0 Lymph # [place] ([facility]) baso # 0.0 10 0.0-0.2 Baso # [place] ([facility]) eos # 0.0 10 0.0-0.5 Eos # [place] ([facility]) ID Date Data Source [id number] 05/15/2020 03:45:00 PM EST [place] Name Value Range Interpretation Code Description Data Bridget rce(s) Supporting Document(s) SARS coronavirus 2 RNA [Presence] in Res piratory specimen by SHIMA with probe detection NEGATIVE [facility] This lab was ordered by [facility] a nd reported by [facility]. ID Date Data Source [id number] 01/27/2020 02:02:35 PM EDT [facility] Measurements & CalculationsHeight: 60 inches (5 [...] Present Illness (HPI)74 yo female presents for [facility] hosp d/c. No complaints. Pt was admitted to [facility] 01/11/2020-01/19/2020 for acute renal failure secondary [...] during this visit, including review of any dyiq-qwu-tdigfns medications, herbal therapies, and/or supplements.Allergy ReviewAllergy List [...] kidney disease, or unspecified chronic kidney disease (YPZ98-A62.9) Assessment: Instructions: Continue as scheduled with nephrology.Please call this clinic tomorrow to give home med list to my nurse for review. Hospital med list reflected in today's med list.Nausea (ICD-787.02) (AOH70-Z42.0) Assessment: Instructions: Zofran as needed. Increase oral fluid and healthy food intake to prevent dehydration and readmission.Hyperuricemia (ICD-790.6) (ETQ80-B96.0) Assessment: Instructions: Refilled allopurinol which was restarted by nephrology.Essential hypertension (ICD-401.9) (VPQ86-X07) Assessment: Instructions: Follow-up as scheduled with Dr. Garvin on Sunday.Colostomy status (ICD-V44.3) (LSD64-J42.3) Assessment: Instructions: Refills have previously been sent, please call me today or tomorrow with the ostomy size. Then we will confirm with [facility] that all is in order.Patient Instructions/Care [...] ostomy size. Then we will confirm with [facility] that all is in order. Plan developed in collaboration with patient and/or familyMedications:AMIODARONE HCL 200 MG ORAL TABLETALLOPURINOL 100 MG ORAL TABLETCOLOSTOMY WAFERS- [id number] POUCHES- [id number] 4 MG ORAL TABLET DISINTEGRATINGEQL VITAMIN D3 [...] (Moderate)Orders:Adult - Ofc Vst, EST, Level IV [CPT-11121] Follow-Up Return to clinic: as needed, 1 Month for follow upClinical Visit Summary CompletedMedications:ATORVASTATIN CALCIUM 10 MG ORAL TABLET (ATORVASTATIN CALCIUM) Take 1 tablet po daily #30[Tablet] x 2 Route:ORAL Entered and Authorized by: Palomo PAZ Method used: Electronically to [facility]* ( retail) [address] [place] [address] Note to Pharmacy: Route: ORAL; Indications: MIXED HYPERLIPIDEMIA RxID: [id number] 100 MG ORAL TABLET (ALLOPURINOL) one tablet daily #30[Tablet] x 2 Route:ORAL Entered and Authorized by: Palomo PAZ Method used: Electronically to [facility]* (retail) [address] [place] [address] Note to Pharmacy: Route: ORAL; RxID: [id number] OMEPRAZOLE 20 MG ORAL TABLET DELAYED RELEASE (OMEPRAZOLE) Take 1 tablet po daily in the AM on an empty stomach #30[Tablet] x 1 Route:ORAL Entered and Authorized by: Palomo PAZ Method used: Electronically to [facility]* (retail) [address] [place] [address] RxID: [id number] LISINOPRIL 10 MG ORAL TABLET (LISINOPRIL) Take 1 tablet po daily #30[Tablet] x 2 Route:ORAL Entered and Authorized by: Palomo PAZ Method used: Electronically to [facility]* (retail) [address] [place] [address] RxID: [id number] signed by Palomo PAZ on 02/11/2020 at 1:12 PM Name Value Range Interpretation Code Description Data Bridget rce(s) Supporting Document(s) ID Date Data Source [id number] 01/12/2020 06:04:00 AM EDT [facility] 140 227 142 Name Value Range Interpretation Code Description Data Bridget rce(s) Supporting Document(s) HCT 28.1 % 36.0-47.0 L [facility] HGB 9.5 g/dL 12.0-15.5 Significant change down [facility] MCH 33.8 G/DL pg 32.0-36.5 N [facility] MCHC 30.5 PG % 27.0-33.0 N [facility] PLATELETS 226 10 10*3/mm3 150-450 Significant change down [facility] RBC 3.11 10 10*6/mm3 4.00-5.40 L [facility] RDW 14.6 % 11.5-14.5 H [facility] WBC TOTAL 11.6 4.0-10.0 H [facility] ID Date Data Source [id number] 01/12/2020 06:04:00 AM EDT [facility] 140 227 142 Name Value Range Interpretation Code Description Data Bridget rce(s) Supporting Document(s) ID Date Data Source [id number] 01/11/2020 09:44:00 PM EDT [facility] 140 227 142 Name Value Range Interpretation Code Description Data Bridget rce(s) Supporting Document(s) ID Date Data Source [id number] 01/11/2020 06:17:00 PM EDT [facility] 140 227 142 Name Value Range Interpretation Code Description Data [facility] rce(s) Supporting Document(s) ID Date Data Source [id number] 01/07/2020 02:07:43 PM EDT [facility] Measurements & CalculationsHeight: 60 inches (5 [...] Present Illness (HPI)74 yo female presents for [facility] hosp d/c. Accompanied by her niece today.Pt was admitted to [facility] 12/25/2019-12/30/2019 for acute kidney injury. This [...] needs refill of her colostomy supplies to [facility]. Transitions of Care InboundProblem ReviewProblem List was reviewed and/or updated during this visit.Medication Reconciliation & ReviewMedication List was reviewed and/or updated during this visit, including review of any dbtd-ksz-bcqcsfw medications, herbal therapies, and/or supplements.Allergy ReviewAllergy List [...] is? PoorAssessment & Plan Problems:Added: Nausea (ICD-787.02) (AZL57-G47.0) Assessment: Instructions: Zofran as needed for nausea.Assessed:Hypertensive chronic kidney disease with stage 1 through stage 4 chronic kidney disease, or unspecified chronic kidney disease (UGO66-J48.9) Assessment: Instructions: Recheck labs on Sunday01/13/2020, nonfasting. Will CC to nephrology. Sips of fluids throughout the day, avoid/prevent dehydration. Discuss allopurinol with nephrology, do not restart at this time.Acidosis (ICD-276.2) (HIZ54-A83.2) Assessment: Instructions: Continue meds per nephrology.Hyperuricemia (ICD-790.6) (VDZ28-V54.0) Assessment: Instructions: As above regarding allopurinol.Colostomy status (ICD-V44.3) (MZW16-U14.3) Assessment: Instructions: Refills will be sent to [facility].Patient Instructions/Care Plan: Hypertensive chronic kidney disease with [...] nausea.Colostomy status: Refills will be sent to [facility]. Plan developed in collaboration with patient [...] - Ofc Vst, EST, Level IV [CPT- 21764] Follow-Up Return to clinic: as needed, as scheduled Clinical Visit Summary Completed Name Value Range Interpretation Code Description Data Brdiget rce(s) Supporting Document(s) ID Date Data Source [id number] 12/29/2019 08:37:00 AM EDT [facility] [address] [place] [address] PHONE: [phone] FAX: [phone] Name .................. : WORKMAN JENNIFER Bauman Acct Number.................. : [id number] ROOM. ................. : TR-07 Number ................... : [id number] Stay type ............. : E/R Discharge Date......... ... : 12/25/19 Admit Date ... ...... : 12/25/19 Admit Phys .................... : COONEYNORM Date of ....... : 1945 Family Phys ................... : VARUN WADE Phone .................. : [phone] Age ................................ : 74 Film# .................. .:[id number] Sex ................................. : F Unsigned transcriptions are preliminary reports and do not represent a medical or legal document CHEST 2 VIEWS 96771 COMPLETE:12/25/19 15:32 [facility] 31488 Reason(s): weakness CHEST X-RAY: 2-VIEWS INDICATION: Weakness. [...] rce(s) Supporting Document(s) ID Date Data Source [id number] 12/26/2019 11:27:00 [place] [address] PHONE: [phone] FAX: [phone] Name .................. : WORKMAN JENNIFER Bauman Acct Number.................. : [id number] ROOM. ................. : TR-07 Number ................... : [id number] Stay type ............. : E/R Discharge Date......... ... : 12/25/19 Admit Date ......... : 12/25/19 Admit Phys .................... : COONEYNORM Date of ....... : 1945 Family Phys ................... : VARUN WADE Phone .................. : [phone] Age ................................ : 74 Film# .................. .:[id number] Sex ................................. : F Unsigned transcriptions are preliminary reports and do not represent a medical or legal document GALLBLADDER [id number] COMPLETE:12/25/19 16:48 ADB 08131 Reason(s): N/V abd pain GALLBLADDER ULTRASOUND: INDICATION: [...] Miguel A Hampton M.D. , 12/26/19 11:27, [facility] Transcribe Initials: KJ , Transcribe Date: 12/25/19 19:51, Dictation Date: Copy for: ENEDELIA EATON via fax Copy for: EMERGENCY DEPT via modem Copy for: 710 MED REC DISCHARGED Page 1 of 1 Name Value Range Interpretation Code Description Data Bridget rce(s) Supporting Document(s) ID Date Data Source [id number] 12/26/2019 03:48:00 AM EDT [facility] [address] [place] [address] RESPIRATORY CARE REPORT ==== ---------NAME------- NUMBER SEX AGE ADMIT DISC. XRAY# F/C JONATHAN Bauman [id number] F 74 12/25/19 12/25/19 [id number] MB8 E/R DATE OF : 1945 M/R# [id number] #: [id number] TR-07 LOCATION: EMERGENCY DEPT EKG 56440 COMPLE TE:12/25/19 16:03 M 49317 PHYSICIAN: JHON TARIQ Name Value Range Interpretation Code Description Data Bridget rce(s) Supporting Document(s) ID Date Data Source [id number] 12/25/2019 01:46:00 PM EDT [facility] 1 OrderSheet [facility] Emergency Department [address] [place] [address] Phone #: ext- [phone] 12/25/2019 13:46 Patient: [...] Sethi R.N.;PT/PTT STAT 14:47 12/25/2019 14:48 Yvette Sehti R.N.;Urinalysis (Clean STAT 14:47 12/25/2019 16:07 Jossie,Catch) Yvette PAZ;Troponin-T STAT 14:47 12/25/2019 14:48 Yvette Sethi R.N.;Sodium Urine STAT 15:38 12/25/2019 16:07 Yvette Sethi R.N.;Creatinine Urine STAT 15:38 12/25/2019 16:07 Yvette Sethi R.N.;BMP STAT 17:20 12/25/2019 17:35 Jossie, 2 OrderSheet [facility] Emergency Department [address] [place] [address] Phone #: ext- [phone] 12/25/2019 13:46 Patient: JENNIFER WORKMAN Sex: F : 1945 Age: 74y Yvette PAZ;DIAGNOSTIC STUDY ORDERSOrder Description Priority Entered Acknowledged InitialedChest 2 View STAT 14:47 12/25/2019 14:48 Jossie(Oxygen?(No)) Yvette PAZ; Reason for Study: weaknessUS Gall Bladder STAT 15:42 12/25/2019 16:07 [place](Oxygen?(No)) Yvette Escalante ticker wirerDandy; Tech1 Reason for Study: N/V abd painMEDICATION/IV/DRIP/FLUID [...] 14:48 Jossie,(continuous) Yvette Santana R.N. 3 OrderSheet [facility] Emergency Department [address] [place] [address] Phone #: ext- [phone] 12/25/2019 13:46 Patient: JENNIFER WORKMAN Sex: F [...] rce(s) Supporting Document(s) ID Date Data Source [id number] 12/25/2019 01:46:00 PM EDT [facility] 1 Medication Reconciliation Report [facility] Emergency Department [address] [place] [address] Phone #: ext- [phone] 12/25/2019 13:46 Patient: [...] 12/25/2019 5:35:00 PM 2 Medication Reconciliation Report [facility] Emergency Department [address] [place] [address] Phone #: ext- [phone] 12/25/2019 13:46 Patient: JENNIFER WORKMAN Sex: F : 1945 Age: 74yLevophed [IV DRIP] Drip IV bolus 0, then 4 mcg 0.5 mcg/min, administered: 12/25/2019 6:40:00 PMThe following Medications were prescribed to the patient:None. Name Value Range Interpretation Code Description Data Bridget rce(s) Supporting Document(s) ID Date Data Source [id number] 12/25/2019 01:46:00 PM EDT [facility] 1 Medication Administration Record [facility] Emergency Department [address] [place] [address] Phone #: [phone] rzf- [phone] 12/25/2019 13:46 Patient: JENNIFER WORKMAN Sex: F [...] ACGiven CALCIUM GLUCONATE [IVP] Calcium Gluconate IVPB [id number] 12/25/2019 Dose: 1 gm IVP mg/50mL (NOW [...] rce(s) Supporting Document(s) ID Date Data Source [id number] 12/25/2019 01:46:00 PM EDT [facility] 1 General Instructions [facility] Emergency Department [address] [place] [address] Phone #: ext- [phone] 12/25/2019 13:46 Patient: JENNIFER WORKMAN Sex: F : 1945 Age: 74yGallbladder [...] Nausea, vomiting, or diarrhea 2 General Instructions [facility] Emergency Department [address] [place] [address] Phone #: ext- [phone] 12/25/2019 13:46 Patient: JENNIFER WORKMAN Sex: F : 1945 Age: 74y Urinating only in small amounts or not urinating Symptoms don't go away or get worseCall 911Call 911 if any of the following occur: Fast or irregular heartbeat Fainting Severe shortness of breath Chest, arm, shoulder, neck or upper back pain Trouble controlling your muscles [phone] [employer]. [address] [place] [address]. All rights reserved. This information is not [...] through your vein.Follow-up care 3 General Instructions [facility] Emergency Department [address] [place] [address] Phone #: ext- [phone] 12/25/2019 13:46 [id number] Sex: F : 1945 Age: 74yFollow up with your healthcare provider for a repeat blood test within the next week, or as advised.When to seek medical adviceCall your healthcare provider if any of the following occur: Increasing weakness Dizziness Irregular heartbeat, extra beats or very fast heart rate Increasing confusion Fainting or loss of consciousness Seizure [phone] [employer]. [address] [place] [address]. All rights reserved. This information is not intended as asubstitute for professional medical care. Always follow your healthcare professional's inst ructions. You have been given the following additional information: Hyperkalemia Hyponatremia(Electronically signed by JACKSON Solorzano 12/25/2019 22:17) Name Value Range Interpretation Code Description Data Bridget rce(s) Supporting Document(s) ID Date Data Source [id number] 12/25/2019 01:46:00 PM EDT [facility] 1 Clinical Report - Nurses [facility] Emergency Department [address] [place] [address] Phone #: ext- [phone] 12/25/2019 13:46 [id number] Sex: F : 1945 Age: 74yTRIAGEArrived by private vehicle. Historian: patient.Acuity: LEVEL 3.Chief Complaint: (GENERAL WEAKNESS).Onset. (6 days ago). ( Pt was seen here last week for the same issue, weakness [place], since then she has been having increased weakness and hasn'tbeen able to eat and having nausea).Treatment HEALTH CARE SOCIAL WORKER:None.SEPSIS SCREEN: SIRS Screen negative. Sepsis Screen negative. [...] harming or 2 Clinical Report - Nurses [facility] Emergency Department [address] [place] [address] Phone #: ext- [phone] 12/25/2019 13:46 Patient: [...] Sethi R.N. 3 Clinical Report - Nurses [facility] Emergency Department [address] [place] [address] Phone #: ext- [phone] 13:46 Patient: [...] deferred. Pain levelnow: 0/10. --16:08 12/25/19 Max Sethi R.N.16:35 12/25/2019 IV Fluids NS via IV site #1 Discontinued: bag #1 infused. Total amount infused: 1000 mL.--16:35 12/25/19 Max Sethi R.N.16:36 12/25/2019 Calcium Gluconate IVP 1 gm given over 15 minute(s) via site #2. --16:36 12/25/19Max Sethi R.N.16:53 12/25/19. BP: 99/33. MAP: 55. HR: [...] Sethi R.N. 4 Clinical Report - Nurses [facility] Emergency Department [address] [place] [address] Phone #: ext- [phone] 12/25/2019 13:46 Patient: [...] --17:55 12/25/19 Max Sethi R.N. Transferred to [facility]. Visit overview, summary of care (CCDA), Emtala forms and Face Sheet provided to EMS and transfer facility. --19:26 12/25/19 Max Sethi R.N. Transported via ambulance by roller pneumatic with monitor and IV. --19:26 12/25/19 Max Sethi R.N. 19:26 12/25/19. BP: 108/89. MAP: 95. HR: 88. RR: 17. O2 saturation: 96%. Temp: 9 6.9 F. Pain level now: 0/10. --19:27 12/25/19 Max Sethi R.N. Departure time: 19:27 12/25/2019. --19:27 12/25/19 Max Sethi R.N.Locked/Released at 12/25/2019 19:27 by Max Sethi R.N. 5 Clinical Report - Nurses [facility] Emergency Department [address] [place] [address] Phone #: ext- [phone] 12/25/2019 13:46 Patient: JENNIFER WORKMAN Sex: F : 1945 Age: 74y Name Value Range Interpretation Code Description Data Bridget rce(s) Supporting Document(s) ID Date Data Source [id number] 12/25/2019 01:46:00 PM EDT [facility] 1 Clinical Report - Physicians/Mid Levels [facility] Emergency Department [address] [place] [address] Phone #: ext- [phone] 12/25/2019 13:46 Patient: [...] with similar complaints and was transferred to [place] for acute renal failure, hyponatemia and gall [...] recently by a health care provider (12/09/2019 [facility] ED for similar complaints then transferred to [place] for acute renal failure, hyponatermia).REVIEW OF SYSTEMSNo [...] Medications: 2 Clinical Report - Physicians/Mid Levels [facility] Emergency Department [address] [place] [address] Phone #: ext- [phone] 12/25/2019 13:46 Patient: [...] RHIANNA 3 Clinical Report - Physicians/Mid Levels [facility] Emergency Department [address] [place] [address] Phone #: ext- [phone] 12/25/2019 13:46 Patient: JENNIFER WORKMAN Sex: F : 1945 Age: 74y DATE/TIME [id number] CHLORIDE 103 mEq/L (98 - 107) CO2 9 LL MEQ/L (22 - 30) CALL/ READ BACK CINDY SPECIAL PROCEDURE TECH BY: TAD DATE/TIME [id number] GLUCOSE 133 H MG/DL (65 - 110) BUN 95 HH MG/DL (7 - 21) CALL/ READ BACK CINDY SPECIAL PROCEDURE TECH 4 BY: TAD DATE/TIME CREATININE 12.4 HH MG/DL (0.7 - 1.5) CALL/ READ BACK CINDY SPECIAL PROCEDURE TECH BY: TAD DATE/TIME [id number] BUN/CREAT 8 (8 - 27) CALCIUM 8.3 L MG/DL (8.4 - 10.2) ANION GAP 18.0 H mmol/L (8.0 - 16.0) AGE 74 yrs AFR AMER GFR > 60 NON-AA GFR 3 mL/min Male GFR Interprentation 20-49 yrs >60 mL/min Styjpq27-11 yrs >56 mL/min Normal 60-69 yrs >49 mL/min Normal 70-79yrs>42 mL/min Normal 80 and above >35 mL/min Normal Female GFRInterpretation 20-39 yrs >60 mL/min Normal 40-49 yrs >58 mL/minNormal 50-59 yrs >51 mL/min Normal 60-69 yrs >45 mL/min Pzfnfn19-52 yrs >39 mL/min Normal 80 and above >32 mL/min NormalUS Gall Bladder: (RADHA: 12/25/2019 15:42) ( MsgRcvd 12/25/2019 19:53) In ProgressUS GALLBLADDERReason(s): N/V abd painTRANSPORTATION: WC IV? O2? Oxygen?(No) Room: ED Exam GALLBLADDER [facility] [address] [place] [address] PHONE: [phone] FAX: [phone] Name .................. : JI Bauman Acct Number.................. : [id number] ROOM. ................. : MR Number ................... : [id number] Stay type ............. : E/R Discharge Date......... ... : 12/25/19 Admit Date ......... : 12/25/19 Admit Phys .................... : COONEYNORM Date of ....... : 1945 Family Phys ................... : VARUN WADE Phone .................. : [phone] Age ................................ : 74 Film# .................. .:[id number] Sex ................................. : F Unsigned transcriptions are preliminary reports and do not represent a medical or legal document GALLBLADDER 40530 COMPLETE:12/25/19 16:48 ADB 35461 Reason(s): N/V abd pain GALLBLADDER ULTRASOUND: INDICATION: Nausea and vomiting, abdominal pain. FINDINGS: 4 Clinical Report - Physicians/Mid Levels [facility] Emergency Department [address] [place] [address] Phone #: ext- [phone] 12/25/2019 13:46 Patient: [...] 1of 1Sodium Urine: (RADHA: 12/25/2019 16:00) ( [facility] 12/25/2019 16:26) Final results Test Result Flag Units (Reference) SODIUM UR 27 L mEq/L (40 - 220)Creatinine Urine: (RADHA: 12/25/2019 16:00) ( [facility] 12/25/2019 16:26) Final results Test Result Flag Units (Reference) CREAT UR 965.7 H MG/DL (0.0 - 30.0)CBC w Diff: (RADHA: 12/25/2019 16:20) ( [facility] 12/25/2019 14:58) Final results Test Result [...] 2.5) 5 Clinical Report - Physicians/Mid Levels [facility] Emergency Department [address] [place] [address] Phone #: ext- [phone] 12/25/2019 13:46 Patient: JENNIFER WORKMAN Sex: F [...] BACK CHA VAZQUEZ ER BY: RHIANNA DATE/TIME [id number] CHLORIDE 94 L mEq/L (98 - 107) CO2 8 LL MEQ/L (22 - 30) CALL/ READ BACK CHA RD ER BY: TAD DATE/TIME [id number] GLUCOSE 89 MG/DL (65 - 110) BUN 101 HH MG/DL (7 - 21) CALL/ READ BACK CHA SPECIAL PROCEDURE TECH BY: TAD DATE/TIME [id number] 5884 CREATININE 13.7 HH MG/DL (0.7 - 1.5) [...] Male GFR Interprentation 20-49 yrs >60 mL/min Jyoflh06-78 yrs >56 mL/min Normal 60- 69 yrs >49 mL/min Normal 70-79yrs>42 mL/min Normal 80 and above >35 mL/min Normal Female GFRInterpretation 20-39 yrs >60 mL/min Normal 40-49 yrs >58 mL/minNormal 50-59 yrs >51 mL/min Normal 60-69 yrs >45 mL/min Xdebgr14-46 yrs >39 mL/min Normal 80 and above >32 mL/min NormalLactic Acid: (RADHA: 12/25/2019 14:45) ( MsgRcvd 12/25/2019 15:06) Final results Test Result Flag Units (Reference) LACTIC ACID 2.3 H MMOL/L (0.2 - 2.2)Lipase: (RADHA: 12/25/2019 14:45) ( MsgRcvd 12/25/2019 15:28) Final results 6 Clinical Report - Physicians/Mid Levels [facility] Emergency Department [address] [place] [address] Phone #: ext- [phone] 12/25/2019 13:46 Patient: JENNIFER WORKMAN Sex: F : 1945 Age: 74y Test Result Flag * *Units (Reference) LIPASE 404 H U/L (13 - 60)PT/INR: (RADHA: 12/25/2019 14:45) ( PrgRcvd 12/25/2019 15:10) Final results Test Result Flag Units (Reference) PROTIME 14.6 SECONDS (11.0 - 15.5) INR 1.13 (0.93 - 1.23) \\BLDo\\INR INTERPRETATION\\BLDx\\ Therapeutic range for Coumadin andrelated oral anticoagulants. -International Normalized Ratio (INR): 2.0 - 3.0 for VenousThrombosis, Pulmonary Embolus, Tissue heart valves, Acute WA, Atrial Fibrillation, Valvular heartdisease and recurrent Systemic Embolism. -International Normalized Ratio (INR): 2.5 - 3.5for Mechanical Prosthetic valve.PT/PTT: (RADHA: 12/06 14:45) ( PrgRcvd 12/25/2019 15:10) Final results Test Result Flag Units (Reference) PROTIME 14.6 SECONDS (11.0 - 15.5) INR 1.13 (0.93 - 1.23) PTT 29.7 SECONDS (24.8 - 36.7) \\BLDo\\INR INTERPRETATION\\BLDx\\ Therapeutic range for Coumadin andrelated oral anticoagulants. - International Normalized Ratio (INR): 2.0 - 3.0 for VenousThrombosis, Pulmonary Embolus, Tissue heart valves, Acute [place] Atrial Fibrillation, Valvular heart diseaseand recurrent Systemic Embolism. - International Normalized Ratio (INR): 2.5 - 3.5 forMechanical Prosthetic valve.Urinalysis: (RADHA: 12/25/2019 16:00) ( [facility] [place] 16:24[place] Final results Test Result Flag [...] A (NORMAL: NoneTroponin-T: (RADHA: 12/25/2019 14:45) ( [facility] [place] 12/25/2019 15:29) Final results Test Result Flag Units (Reference) TROPONIN T 0.02 NG/ML (0.00 - 0.10) 7 Clinical Report - Physicians/Mid Levels [facility] Emergency Department [address] [place] [address] Phone #: ext- [phone] 12/25/2019 13:46 Patient: JENNIFER WORKMAN Sex: F : 1945 Age: 74y TROPONIN T0.1 ng/ml Recommended as the clinical threshold value Jigna Hicks Chest 2 View: (RADHA: 12/25/2019 14:47) ( MsgRcvd 12/25/2019 20:42) In Progress CHEST 2 VIEWS Reason(s): weakness TRANSPORTATION: WC IV? O2? Oxygen?(No) Room: ED Exam CHEST 2 VIEWS [facility] [address] [place] [address] PHONE: [phone] FAX: [phone] Name .................. : JI Bauman Acct Number.................. : [id number] ROOM. ................. : TR-07 MR Number ................... : [id number] Stay type ............. : E/R Discharge Date......... ... : 12/25/19 Admit Date ......... : 12/25/19 Admit Phys .................... : COONEYNORM Date of ....... : 1945 Family Phys ................... : VARUN WADE Phone .................. : [phone] Age ................................ : 74 Film# .................. .:[id number] Sex ................................. : F Unsigned transcriptions are preliminary reports and do not represent a medical or legal document CHEST 2 VIEWS 59502 COMPLETE:12/25/19 15:32 BEM 09326 Reason(s): weakness CHEST X-RAY: 2-VIEWS INDICATION: Weakness. [...] 1. 8 Clinical Report - Physicians/Mid Levels [facility] Emergency Department [address] [place] [address] Phone #: ext- [phone] 12/25/2019 13:46 Patient: [...] 12/25/19. Discussed pt with Dr Dong, her voucher clerk at [facility]. He recommends 2-3 liters of NS, and zosyn and vanc given the last time she presented like this, she was treated for pyelonephritis with improvement of symptoms. He also recommends calling [facility] ER to transfer the pt for admission. 16:53 12/25/19. Spoke to the nursing hot strip mill supervisor who recommended talking to the hospitalist for direct admission. Spoke to oncall hospitalist at [facility]. Given the pt's electrolyte abnormalities, he recommends ED-ED transfer and they can consult from there. Nursing hot strip mill supervisor contacted. Awaiting a call back 17:58 12/25/19. Discussed pt with Franko Richardson LOGGING TRUCK DRIVER at [facility] ED. He has accepted the pt. [...] 70s. Transport team here. Will transport to [facility] ED now 19:21 12/25/19. BP now [...] Hyponatremia 9 Clinical Report - Physicians/Mid Levels [facility] Emergency Department [address] [place] [address] Phone #: ext- [phone] 12/25/2019 13:46 Patient: JENNIFER WORKMAN [facility]#: [id number] Sex: F : 1945 Age: 74y(Electronically signed by JACKSON Solorzano 12/25/2019 22:17) Name Value Range Interpretation Code Description Data Bridget rce(s) Supporting Document(s) ID Date Data Source [id number] 12/25/2019 06:25:00 PM EDT [facility] Name Value Range Interpretation Code Description Data Bridget rce(s) Supporting Document(s) BASIC METABOLIC PANEL [facility] BASIC METABOLIC PANEL Sodium [Moles/volume] in Serum or Plasma 130 mEq/L 134 - 153 L [facility] Potassium [Moles/volume] in Serum or Plasma 6.6 mEq/L 3.6 - 5.0 [facility] CINDY VAZQUEZ [id number] Chloride [Moles/volume] in Serum or Plasma 103 mEq/L 98 - 107 [facility] Carbon dioxide, total [Moles/volume] in Serum or Plasma 9 MEQ/L 22 - 30 LL [facility] CINDY VAZQUEZ [id number] Glucose [Mass/volume] in Serum or Plasma 133 MG/DL 65 - 110 H [facility] BUN 95 MG/DL 7 - 21 [facility] al CINDY VAZQUEZ ER [id number] Creatinine [Mass/volume] in Serum or Plasma 12.4 MG/DL 0.7 - 1.5 [facility] CINDY VAZQUEZ [id number] BUN/CREAT 8 8 - 27 [facility] al Calcium [Mass/volume] in Serum or Plasma 8.3 MG/DL 8.4 - 10.2 L [facility] Anion gap 3 in Serum or Plasma 18.0 mmol/L 8.0 - 16.0 H [facility] 74 [facility] AMER GFR >60 [facility] NON-AA GFR 3 mL/min [facility] Male GFR Inter prentation [...] >32 mL/min Normal ID Date Data Source [id number] 12/25/2019 02:57:00 PM EDT [facility] Name Value Range Interpretation Code Description Data Bridget rce(s) Supporting Document(s) CBC W/AUTOMATED DIFF [facility] COMPLETE BLOOD COUNT Leukocytes [#/volume] in Blood by Automated count 9.1 10^3/uL 4.2 - 1 1.0 [facility] Erythrocytes [#/volume] in Blood by Automated count 4.19 10^6/uL 4. 20 - 5.40 L [facility] Hemoglobin [Mass/volume] in Blood 12.5 g/dL 12.0 - 16.0 [facility] Hematocrit [Volume Fraction] of Blood by Automated count 39.5 % 3 7.0 - 47.0 [facility] Erythrocyte mean corpuscular volume [Entitic volume] by Auto mated count 94.3 fL 81.0 - 101 [facility] Erythrocyte mean corpuscular hemoglobin [Entitic mass] by Automated count 29.8 pg 27.0 - 34.0 [facility] Erythrocyte mean corpuscular hemoglobin concentration [Mass/volume] by Automated count 31.6 g/dL 31.0 - 36.0 [facility] Erythrocyte distribution width [Ratio] by Automated count 14.2 % 11.5 - 14.5 [facility] Platelets [#/volume] in Blood by Automated count 284 10^3/uL 150 - 45 0 [facility] Platelet mean volume [Entitic volume] in Blood by Automated count 10.3 fL 7.4 - 10.4 [facility] Neutrophils/100 leukocytes in Blood by Automated count 80.0 % 37. 0 - 80.0 [facility] Lymphocytes/100 leukocytes in Blood by Manual count 12.6 % 25.0 - 40.0 L [facility] Monocytes/100 leukocytes in Blood by Automated count 6.1 % 3.0 - 8.0 [facility] Eosinophils/100 leukocytes in Blood by Automated count 0.1 % 0.0 - 7.0 [facility] Basophils/100 leukocytes in Blood by Automated count 0.6 % 0.0 - 2.5 [facility] %IG 0.6 % 0.0 - 0.0 H [facility] %NRBC 0.0 % 0.0 - 0.0 [facility] Neutrophils [#/volume] in Blood by Automated count 7.27 10^3/uL 2.00 - 6.90 H [facility] Lymphocytes [#/volume] in Blood by Automated count 1.14 10^3/uL 0.60 - 3.40 [facility] Monocytes [#/volume] in Blood by Automated count 0.55 10^3/uL 0.00 - 0.90 [facility] Eosinophils [#/volume] in Blood by Automated count 0.01 10^3/uL 0.00 - 0.70 [facility] Basophils [#/volume] in Blood by Automated count 0.05 10^3/uL 0.00 - 0.20 [facility] #IG 0.05 10^3/uL 0.00 - 0.10 [facility] #NRBC 0.00 10^3/uL 0.00 - 0.00 [facility] MANUAL DIFF NOT INDICATED [facility] RBC MORPH NOT INDICATED [facility] spital ID Date Data Source [id number] 12/30/2019 06:52:00 AM EDT [facility] Name Value Range Interpretation Code Description Data Bridget rce(s) Supporting Document(s) CULTURE URINE [facility] _CULTURE URINE_$$[id number]$$552017$$532759$$813141$$924353$$967107$$219392$$102013$$255840$$ 336584$$407539$$106422$$317458$$044797$$147187$$094112$$906931$$331559$$231792$$ 637008$$769968$$637767$$368256$$788003$$397201$$509563$$[id number] -- Continued on next page --Patient: JI Bauman Order: [id number] Page 2Culture: CULTURE URINE Status: Final ==== -- Continued on next page --Patient: JI Bauman Order: [id number] Page 2Culture: CULTURE URINE Status: Prelim =====$$[id number]$$[id number] DATE/TIME: 12/29/2019 14:06Culture: CULTURE URINE Status: FinalUrine Culture,Comprehensive: P1No growth in 36 - 48 hours. Previous result entered on 12/28/2019 08:13 ET No growth after 18-24 hours.P1 Test performed by: [facility] Cherie MÁRQUEZ #: [id number] [address] [place] [address] [id number] [facility] [address]Medical Director : Jj Pulido MD NPI #:Lab Kayley molly : 12/29/19.0821.XMT.SENT REF 12/30/19.0653.XMT.SENT REF ID Date Data Source [id number] 12/25/2019 04:25:[address] [facility] Value Range Interpretation Code Description Data Bridget rce(s) Supporting Document(s) CREAT UR 965.7 MG/DL 0.0 - 30.0 H [facility] ID Date Data Source [id number] 12/25/2019 04:25:00 PM EDT [facility] Name Value Range Interpretation Code Description Data Bridget rce(s) Supporting Document(s) SODIUM UR 27 mEq/L 40 - 220 L [facility] ID Date Data Source [id number] 12/25/2019 04:24:00 PM EDT [facility] Name Value Range Interpretation Code Description Data Bridget rce(s) Supporting Document(s) URINALYSIS [facility] gurinder URINALYSIS SOURCE R [facility] COLOR yellow NORMAL: Yellow [facility] CLARITY turbid NORMAL: Clear [facility] Specific gravity of Urine by Test strip 1.030 1.001 - 1.030 [facility] pH 5 5 - 9 [facility] Glucose [Mass/volume] in Urine by Test strip NORM NORMAL: Negat [facility] Bilirubin.total [Presence] in Urine by Test strip 1 NORMAL: Negative [facility] Ketones [Presence] in Urine by Test strip 5 NORMAL: Negative [facility] Protein [Mass/volume] in Urine by Test strip 30 NORMAL: Negat [facility] Nitrite [Presence] in Urine by Test strip NEG NORMAL: Negative [facility] BLOOD 250 NORMAL: Negative [facility] Leukocyte esterase [Presence] in Urine by Test strip 500 DESI L: Negative [facility] Urobilinogen [Mass/volume] in Urine by Test strip NOR less matt n 1.0 mg/dL [facility] MICROSCOPIC See Below [facility] WBC 30 - 40 NORMAL: NONE SEEN A [facility] Erythrocytes [#/volume] in Urine by Test strip 5 - 7 NORMAL: NON E SEEN A [facility] EPITHELIAL MODERATE NORMAL: NONE SEEN A [facility] Bacteria [Presence] in Urine sediment by Light microscopy 1+ SMALL NORMAL: NONE SEEN [facility] Amorphous sediment [Presence] in Urine sediment by Light manoj roscopy 1+ NORMAL: NONE SEEN [facility] Casts [#/area] in Urine sediment by Microscopy low power field See Be low [facility] Hyaline casts [#/area] in Urine sediment by Microscopy low p ower field 3-5 NORMAL: None Seen A [facility] Fine Granular Casts [#/area] in Urine sediment by Micr oscopy low power field 1-3 NORMAL: None Seen A [facility] ID Date Data Source [id number] 12/25/2019 03:28:00 PM EDT [facility] Name Value Range Interpretation Code Description Data Bridget rce(s) Supporting Document(s) TROPONIN T 0.02 NG/ML 0.00 - 0.10 [facility] spital TROPONIN T0.1 ng/ml Recommended as the c linical threshold value forTroponin T. ID Date Data Source [id number] 12/25/2019 03:28:00 PM EDT [facility] Name Value Range Interpretation Code Description Data Bridget rce(s) Supporting Document(s) Lipase [Enzymatic activity/volume] in Serum or Plasma 404 U/L 13 - 60 H [facility] ID Date Data Source [id number] 12/25/2019 03:19:00 PM EDT [facility] Name Value Range Interpretation Code Description Data Bridget rce(s) Supporting Document(s) COMPREHENSIVE METABOLIC PANEL [facility] COMPREHENSIVE METABOLIC PANEL Sodium [Moles/volume] in Serum or Plasma 126 mEq/L 134 - 153 L [facility] Potassium [Moles/volume] in Serum or Plasma 8.0 mEq/L 3.6 - 5.0 [facility] CHA VAZQUEZ [id number] 1525 Chloride [Moles/volume] in Serum or Plasma 94 mEq/L 98 - 107 L [facility] Carbon dioxide, total [Moles/volume] in Serum or Plasma 8 MEQ/L 22 - 30 LL [facility] CHA CALDERA [id number] 1525 Glucose [Mass/volume] in Serum or Plasma 89 MG/DL 65 - 110 [facility] BUN 101 MG/DL 7 - 21 [facility] CHA VAZQUEZ [id number] Creatinine [Mass/volume] in Serum or Plasma 13.7 MG/DL 0.7 - 1.5 HH [facility] BUN/CREAT 7 8 - 27 L [facility] al Protein [Mass/volume] in Serum or Plasma 7.9 G/DL 6.3 - 8.2 [facility] Albumin [Mass/volume] in Serum or Plasma 4.6 G/DL 3.9 - 5.0 [facility] Globulin [Mass/volume] in Serum by calculation 3.3 GM/DL 2.4 - 3.2 H [facility] A/G RATIO 1.4 0.8 - 2.0 [facility] Calcium [Mass/volume] in Serum or Plasma 9.5 MG/DL 8.4 - 10.2 [facility] Bilirubin.total [Mass/volume] in Serum or Plasma <0.7 MG/DL 0.2 - 1.3 [facility] Alkaline phosphatase [Enzymatic activity/volume] in Serum or Plasma 101 U/L 38 - 126 [facility] Aspartate aminotransferase [Enzymatic activity/volume] in Serum or Plasma 14 U/L 5 - 40 [facility] Alanine aminotransferase [Enzymatic activity/volume] in Seru m or Plasma 5 U/L 7 - 56 L [facility] Anion gap 3 in Serum or Plasma 24.0 mmol/L 8.0 - 16.0 H [facility] AGE 74 yrs [facility] al NON-AA GFR 3 mL/min [facility] AFR AMER GFR >60 [facility] pital Male GFR In terprentation 20-49 [...] >32 mL/min Normal ID Date Data Source [id number] 12/25/2019 03:09:00 PM EDT [facility] Name Value Range Interpretation Code Description Data Bridget rce(s) Supporting Document(s) Prothrombin time (PT) 14.6 SECONDS 11.0 - 15.5 [facility] INR in Platelet poor plasma by Coagulation assay 1.13 0.93 - 1. 23 [facility] \\BLDo\\INR INTERPRETATION\\BLDx\\ Therapeutic range for Coumadin and related oral anticoagulants. - International Normalized Ratio (INR): 2.0 - 3.0 for Venous Thrombosis, Pulmonary Embolus, Tissue heart valves, Acute [place], Atrial Fibrillation, Valvular heart disease and recurrent Systemic Embolism. -International Normalized Ratio (INR): 2.5 - 3.5 for Mechanical Prosthetic valve. ID Date Data Source [id number] 12/25/2019 03:09:00 PM EDT [facility] Name Value Range Interpretation Code Description Data Bridget rce(s) Supporting Document(s) Prothrombin time (PT) 14.6 SECONDS 11.0 - 15.5 [facility] INR in Platelet poor plasma by Coagulation assay 1.13 0.93 - 1. 23 [facility] aPTT in Blood by Coagulation assay 29.7 SECONDS 24.8 - 36.7 [facility] \\BLDo\\INR INTERPRETATION\\BLDx\\ Therapeutic range for Coumadin and related oral anticoagulants. - International Normalized Ratio (INR): 2.0 - 3.0 for Venous Thrombosis, Pulmonary Embolus, Tissue heart valves, Acute [place] Atrial Fibrillation, Valvular heart disease and recurrent Systemic Embolism. - International Normalized Ratio (INR): 2.5 - 3.5 for Mechanical Prosthetic valve. ID Date Data Source [id number] 12/25/2019 03:06:00 PM EDT [facility] Name Value Range Interpretation Code Description Data Bridget rce(s) Supporting Document(s) Lactate [Moles/volume] in Serum or Plasma 2.3 MMOL/L 0.2 - 2.2 H [facility] Procedure Social History Code Duration Value Status Description Data Source(s ) Alcohol intake 02/16/2021 12:00:00 AM EDT Ex-drinker (finding) comp leted Ex- drinker (finding) [facility] Alcohol intake 03/26/2020 12:00:00 AM EST Not Currently completed [facility] Smoking 03/26/2020 12:00:00 AM EST Former smoker completed Former smoker [facility] Tobacco use and exposure 01/30/2020 12:00:00 AM EDT Never used co mpleted Never used [facility] Smoking 01/30/2020 12:00:00 AM EDT Former smoker completed Former smoker [facility] Vital Signs ID Date Data Source UNK Name Value Range Interpretation Code Description Data Source(s) Systolic blood pressure 130 mm[Hg] 130 mm[Hg] [facility] Diastolic blood pressure 78 mm[Hg] 78 mm[Hg] [facility] Body mass index (BMI) [Ratio] 26.39 kg/m2 26.39 kg/m2 [facility] Heart rate 86 /min 86 /min [facility] Body height 160 cm 160 cm [facility] Body weight 67.586 kg 67.586 kg [facility] Oxygen saturation in Arterial blood by Pulse oximetry 96 % 96 % [facility] Diastolic blood pressure 87 mm[Hg] 87 mm[Hg] [facility] ([facility]) Body weight 2320 [oz_av] 2320 [oz_av] [facility] ([facility]) Body height 60 [in_i] 60 [in_i] [facility] ([facility]) Body mass index (BMI) [Ratio] 28.3 kg/m2 28.3 k g/m2 [facility] ([facility]) Systolic blood pressure 152 mm[Hg] 152 mm[Hg] A THENA ([facility]) Body height 60 [in_i] 60 [in_i] [facility] ([facility]) Body height 60 [in_i] 60 [in_i] [facility] ([facility] Body height 60 [in_i] 60 [in_i] [facility] ([facility] Body height 60 [in_i] 60 [in_i] [facility] ([facility]) Body height 60 [in_i] 60 [in_i] [facility] ([facility]) Systolic blood pressure 102 mm[Hg] 102 mm[Hg] [facility] Diastolic blood pressure 60 mm[Hg] 60 mm[Hg] [facility] Heart rate 72 /min 72 /min [facility] Body height 160 cm 160 cm [facility] Body weight 58.06 kg 58.06 kg [facility] Body mass index (BMI) [Ratio] 22.67 kg/m2 22.67 kg/m2 [facility] Oxygen saturation in Arterial blood by Pulse oximetry 95 % 95 % [facility] Diastolic blood pressure 74 mm[Hg] 74 mm[Hg] [facility] ([facility]) Body height 60 [in_i] 60 [in_i] [facility] ([facility]) Body mass index (BMI) [Ratio] 25.3 kg/m2 25.3 k g/m2 [facility] ([facility]) Systolic blood pressure 150 mm[Hg] 150 mm[Hg] A [facility] ([facility]) Body weight 2069.4 [oz_av] 2069.4 [oz_av] ATHEN A ([facility]) Diastolic blood pressure 74 mm[Hg] 74 mm[Hg] [facility] ([facility]) Body height 60 [in_i] 60 [in_i] [facility] ([facility]) Body mass index (BMI) [Ratio] 25.3 kg/m2 25.3 k g/m2 [facility] ([facility]) Systolic blood pressure 150 mm[Hg] 150 mm[Hg] A [facility] ([facility]) Body weight 0.4 [oz_av] 2069.4 [oz_av] ATHEN A ([facility]) Diastolic blood pressure 74 mm[Hg] 74 mm[Hg] [facility] ([facility]) Body height 60 [in_i] 60 [in_i] [facility] ([facility]) Body mass index (BMI) [Ratio] 25.3 kg/m2 25.3 k g/m2 [facility] ([facility]) Systolic blood pressure 150 mm[Hg] 150 mm[Hg] A [facility] ([facility]) Diastolic blood pressure 74 mm[Hg] 74 mm[Hg] [facility] ([facility]) Body height 60 [in_i] 60 [in_i] [facility] ([facility]) Body mass index (BMI) [Ratio] 25.3 kg/m2 25.3 k g/m2 [facility] ([facility]) Systolic blood pressure 150 mm[Hg] 150 mm[Hg] A [facility] ([facility]) Body weight 0.4 [oz_av] 2069.4 [oz_av] ATHEN A ([facility]) Body weight 2069.4 [oz_av] 2069.4 [oz_av] ATHEN A ([facility]) Diastolic blood pressure 64 mm[Hg] 64 mm[Hg] [facility] ([facility]) Body height 60 [in_i] 60 [in_i] [facility] ([facility]) Body mass index (BMI) [Ratio] 24.38 kg/m2 24.38 kg/m2 [facility] ([facility]) Body weight 1989.4 [oz_av] 1989.4 [oz_av] ATHEN A ([facility]) Systolic blood pressure 158 mm[Hg] 158 mm[Hg] [facility] Diastolic blood pressure 64 mm[Hg] 64 mm[Hg] [facility] ([facility]) Body height 60 [in_i] 60 [in_i] [facility] ([facility]) Body mass index (BMI) [Ratio] 24.38 kg/m2 24.38 kg/m2 [facility] ([facility]) Systolic blood pressure 158 mm[Hg] 158 mm[Hg] A THENA ([facility]) Body weight 1989.4 [oz_av] 1989.4 [oz_av] ATHEN A ([facility]) Diastolic blood pressure 57 mm[Hg] 57 mm[Hg] [facility] ([facility]) Body height 60 [in_i] 60 [in_i] [facility] ([facility]) Systolic blood pressure 103 mm[Hg] 103 mm[Hg] A THENA ([facility]) Body weight 1973.4 [oz_av] 1973.4 [oz_av] ATHEN A ([facility]) Diastolic blood pressure 57 mm[Hg] 57 mm[Hg] [facility] ([facility]) Body weight 1974.4 [oz_av] 1973.4 [oz_av] ATHEN A ([facility]) Body height 60 [in_i] 60 [in_i] [facility] ([facility]) Body mass index (BMI) [Ratio] 24.19 kg/m2 24.19 kg/m2 [facility] ([facility]) Systolic blood pressure 103 mm[Hg] 103 mm[Hg] [facility] Diastolic blood pressure 57 mm[Hg] 57 mm[Hg] [facility] ([facility]) Diastolic blood pressure 57 mm[Hg] 57 mm[Hg] [facility] ([facility]) Body height 60 [in_i] 60 [in_i] [facility] ([facility]) Systolic blood pressure 103 mm[Hg] 103 mm[Hg] A SOLA ([facility]) Body weight 1974.4 [oz_av] 1974.4 [oz_av] ATHSANDRA A ([facility]) Body height 60 [in_i] 60 [in_i] [facility] ([facility]) Body mass index (BMI) [Ratio] 24.19 kg/m2 24.19 kg/m2 [facility] ([facility]) Systolic blood pressure 103 mm[Hg] 103 mm[Hg] A MERLE ([facility]) Body weight 1974.4 [oz_av] 1974.4 [oz_av] ATHSANDRA Ojeda ([facility]) Patient Treatment Plan of Care Planned Activity Planned Date Details Description Data Source (s) apixaban 5 MG Oral Tablet [Eliquis] 08/30/2020 12:00:00 AM EDT [facility] Magnesium Oxide 400 MG Oral Tablet 06/13/2020 12:00:00 AM EST [facility] Escitalopram 5 MG Oral Tablet 02/26/2020 12:00:00 AM EDT [facility] apixaban 5 MG Oral Tablet 01/30/2020 12:00:00 AM EDT [facility] Lisinopril 10 MG Oral Tablet 01/30/2020 12:00:00 AM EDT [facility] Sodium Bicarbonate 650 MG Oral Tablet 01/28/2020 12:00:00 AM EDT [facility] pantoprazole 40 MG Delayed Release Oral Tablet 01/28/2020 12:00:00 AM EDT [facility] atorvastatin 10 MG Oral Tablet 01/28/2020 12:00:00 AM EDT [facility] Amlodipine 5 MG Oral Tablet 01/28/2020 12:00:00 AM EDT [facility] Allopurinol 100 MG Oral Tablet 11/21/2019 12:00:00 AM EDT [facility] Sodium Bicarbonate 650 MG Oral Tablet [facility] ([facility]) pantoprazole 40 MG Delayed Release Oral Tablet [facility] ([facility]) Ondansetron 4 MG Disintegrating Oral Tablet [facility] ([facility]) Omeprazole 20 MG Delayed Release Oral Capsule [facility] ([facility]) Lisinopril 10 MG Oral Tablet [facility] ([facility]) Fluoxetine 40 MG Oral Capsule [facility] ([facility]) Fluoxetine 20 MG Oral Capsule [facility] ([facility]) apixaban 2.5 MG Oral Tablet [Eliquis] [facility] ([facility]) Cephalexin 500 MG Oral Capsule [facility] ([facility]) Amlodipine 5 MG Oral Tablet [facility] ([facility]) Amiodarone hydrochloride 200 MG Oral Tablet [facility] ([facility]) Allopurinol 100 MG Oral Tablet [facility] ([facility]) Sodium Bicarbonate 650 MG Oral Tablet [facility] ([facility]) Ondansetron 4 MG Disintegrating Oral Tablet [facility] ([facility] Omeprazole 20 MG Delayed Release Oral Capsule [facility] ([facility]) Lisinopril 10 MG Oral Tablet [facility] ([facility]) Fluoxetine 40 MG Oral Capsule [facility] ([facility]) Fluoxetine 20 MG Oral Capsule [facility] ([facility]) Escitalopram 5 MG Oral Tablet [facility] ([facility]) apixaban 2.5 MG Oral Tablet [Eliquis] [facility] ([facility]) Cephalexin 500 MG Oral Capsule [facility] ([facility]) Amlodipine 5 MG Oral Tablet [facility] ([facility]) Amiodarone hydrochloride 200 MG Oral Tablet [facility] ([facility]) Allopurinol 100 MG Oral Tablet [facility] ([facility]) Sodium Bicarbonate 650 MG Oral Tablet [facility] ([facility]) Ondansetron 4 MG Disintegrating Oral Tablet [facility] ([facility]) Omeprazole 20 MG Delayed Release Oral Capsule [facility] ([facility]) Fluoxetine 40 MG Oral Capsule [facility] ([facility]) Fluoxetine 20 MG Oral Capsule [facility] ([facility]) apixaban 2.5 MG Oral Tablet [Eliquis] [facility] ([facility]) Cephalexin 500 MG Oral Capsule [facility] ([facility]) Amiodarone hydrochloride 200 MG Oral Tablet [facility] ([facility]) Allopurinol 100 MG Oral Tablet [facility] ([facility]) pantoprazole 40 MG Delayed Release Oral Tablet [facility] ([facility]) Fluoxetine 40 MG Oral Capsule [facility] ([facility]) Fluoxetine 20 MG Oral Capsule [facility] ([facility]) apixaban 2.5 MG Oral Tablet [Eliquis] [facility] ([facility]) Cephalexin 500 MG Oral Capsule [facility] ([facility]) Amiodarone hydrochloride 200 MG Oral Tablet [facility] ([facility])
== END 2021-02-18 00:29 | disposition left against medical advice (07) ==
LOC: M ED 22:26
DX: Z53.29 Procedure and treatment not carried out because of patient's decision for other reasons (principal)

== ENCOUNTER → 2021-10-04 | Outpatient (CLI) | payer MEDICARE ==
[~2021-10-04] MED LIST changes: -AMIO200T3 PO; +AMIO200T49 PO; +OMEP-173 PO; -OMEP-218 PO
== END ==
LOC: M WUC 11:58
DX: R13.10 Dysphagia, unspecified (principal)

== ENCOUNTER → 2022-07-25 | Outpatient (CLI) | payer MEDICARE | LOC: M WHC 12:07 | PROVIDERS: ATTEND Family Medicine Addiction Medicine | DX: N64.4 Mastodynia (principal) | CPT/HCPCS: 77066; G0279 ==

== ENCOUNTER → 2022-10-17 | Outpatient (REF) | payer MEDICARE ==
[2022-10-17 13:11] LABS: BASO # 0.1 10^3/uL (0.0-0.2); BASO % 1.2 % (0.0-1.0); EOS # 0.5 10^3/uL (0.0-0.5); EOS % 6.6 % (0.0-3.0); HEMATOCRIT 49.4 % (36.0-47.0); LYMPH # 2.8 10^3/uL (1.5-5.0); LYMPH % 34.1 % (24.0-44.0); MEAN CORPUSCULAR HEMOGLOBIN 30.3 pg (27.0-33.0); MEAN CORPUSCULAR HGB CONC 32.4 g/dl (32.0-36.5); MEAN CORPUSCULAR VOLUME 93.6 fl (80.0-96.0); MONO # 0.5 10^3/uL (0.0-0.8); MONO % 5.9 % (2.0-8.0); NEUTROPHILS # 4.2 10^3/uL (1.5-8.5); PLATELET COUNT, AUTOMATED 268 10^3/uL (150-450); RED BLOOD COUNT 5.28 10^6/uL (4.00-5.40); WHITE BLOOD COUNT 8.2 10^3/uL (4.0-10.0)
[2022-10-17 13:38] LABS: ALBUMIN 4.1 G/DL (3.2-5.2); BILIRUBIN,TOTAL 0.8 MG/DL (0.3-1.2); CALCIUM LEVEL 9.8 MG/DL (8.3-10.6); CHOLESTEROL RISK RATIO 3.06 (<5); CREATININE FOR GFR 1.21 MG/DL (0.55-1.30); GLOMERULAR FILTRATION RATE 46.2 (>39); HDL CHOLESTEROL 56.1 MG/DL (>40); LDL CHOLESTEROL 90.9 MG/DL (<100); NON-HDL-C 115.9 MG/DL; POTASSIUM SERUM 4.2 MMOL/L (3.5-5.1); THYROID STIMULATING HORMONE 2.598 uIU/ML (0.55-4.78); TOTAL PROTEIN 7.2 G/DL (5.7-8.2)
== END ==
LOC: M LAB REF 12:24
PROVIDERS: ATTEND Family Medicine Addiction Medicine
DX: E78.2 Mixed hyperlipidemia (principal)

== ENCOUNTER 2025-02-10 20:31 | Inpatient (IN) | payer MEDICARE ==
[~2025-02-10] VITALS: Ht 162.6 cm; Wt 59.7 kg
[~2025-02-10 20:31] MED LIST changes: -AMIO200T49 PO; +AMIO200T54 PO; +AMLO-751 PO; -AMLO10TA PO; -DRON2.5C11 PO; +DRON2.5C17 PO; +FLUO-365 PO; -FLUO20CA22 PO; +ONDA-282 PO; -ONDA4TAB6 PO
[2025-02-11 00:25] LABS: CALCIUM LEVEL 10.0 MG/DL (8.3-10.6); CARBON DIOXIDE LEVEL 17.0 MMOL/L (20-31); CHLORIDE LEVEL 99.0 MMOL/L (98-107); CREATININE FOR GFR 3.13 MG/DL (0.55-1.30); GLOMERULAR FILTRATION RATE 14.8 (>39); POTASSIUM SERUM 6.1 MMOL/L (3.5-5.1); SODIUM LEVEL 130.0 MMOL/L (136-145)
[2025-02-11 00:42] LABS: BASO # 0.1 10^3/uL (0.0-0.2); BASO % 0.6 % (0.0-1.0); EOS # 0.0 10^3/uL (0.0-0.5); EOS % 0.4 % (0.0-3.0); LYMPH # 2.3 10^3/uL (1.5-5.0); LYMPH % 24.2 % (24.0-44.0); MONO # 0.5 10^3/uL (0.0-0.8); MONO % 5.6 % (2.0-8.0); NEUTROPHILS # 6.6 10^3/uL (1.5-8.5); NEUTROPHILS % 68.8 % (36.0-66.0); PLATELET COUNT, AUTOMATED 330 10^3/uL (150-450)
[2025-02-11] MEDS: CALCIUM GLUCONATE 1,000 MG/10 ML VIAL IV ONE (01:13)
[2025-02-11] MEDS: SODIUM BICARBONATE 8.4% INJ 50ML SYRINGE IV ONE (01:19)
[2025-02-11] MEDS: DEXTROSE 50% 50 ML SYRINGE IV ONE (01:23)
[2025-02-11] MEDS: HumuLIN R (REGULAR) INSULIN (NovoLIN R) **100 U/ML** PER UNIT IV ONE (01:26)
[2025-02-11] MEDS: PATIROMER SORBITEX CALCIUM 8.4GM POWDER PACKET PO ONE (01:42)
[2025-02-11] MEDS: NS (Normal Saline) 0.9% 1,000 ML IV ONE (03:20)
[2025-02-11] MEDS ORDERED: NS (Normal Saline) 0.9% 1,000 ML IV SCH (03:20)
[2025-02-11] MEDS ORDERED: ACETAMINOPHEN 325 MG TAB PO PRN (04:10)
[2025-02-11] MEDS: SODIUM BICARBONATE 8.4% INJ 50ML SYRINGE IV STA (04:42)
[2025-02-11] MEDS ORDERED: METOPROLOL 5 MG/5 ML VIAL IV PRN (06:00)
[2025-02-11] MEDS: NS (Normal Saline) 0.9% 800 ML IV SCH (06:28)
[2025-02-11 07:53] LABS: PLATELET COUNT, AUTOMATED 257 10^3/uL (150-450)
[2025-02-11 08:18] LABS: CALCIUM LEVEL 9.1 MG/DL (8.3-10.6); CARBON DIOXIDE LEVEL 19.0 MMOL/L (20-31); CHLORIDE LEVEL 101.0 MMOL/L (98-107); CREATININE FOR GFR 2.58 MG/DL (0.55-1.30); GLOMERULAR FILTRATION RATE 18.6 (>39); MAGNESIUM LEVEL 1.7 MG/DL (1.8-2.4); POTASSIUM SERUM 3.9 MMOL/L (3.5-5.1); SODIUM LEVEL 138.0 MMOL/L (136-145)
[2025-02-11] MEDS ORDERED: TAMS-18 PO (09:54)
[2025-02-11] MEDS ORDERED: ONDA-282 PO (09:54)
[2025-02-11] MEDS ORDERED: ELIQ2.5T PO (09:54)
[2025-02-11] MEDS ORDERED: HOME MED LIST COMPLETE! XX SCH (09:55)
[2025-02-11 10:25] LABS: CALCIUM LEVEL 9.0 MG/DL (8.3-10.6); CARBON DIOXIDE LEVEL 20.0 MMOL/L (20-31); CHLORIDE LEVEL 101.0 MMOL/L (98-107); CREATININE FOR GFR 2.48 MG/DL (0.55-1.30); GLOMERULAR FILTRATION RATE 19.5 (>39); POTASSIUM SERUM 3.9 MMOL/L (3.5-5.1); SODIUM LEVEL 137.0 MMOL/L (136-145)
[2025-02-11] MEDS: APIXABAN 2.5 MG TAB PO SCH (10:42)
[2025-02-11 11:09] VITALS: BP 106/69; TEMP 98.1; O2SAT 98
[2025-02-11] MEDS ORDERED: ONDANSETRON 4MG ORAL DISINTEGRATING TAB PO PRN (11:25)
[2025-02-11] MEDS ORDERED: GLUCOSE 4 GM CHEW PO PRN (11:25)
[2025-02-11] MEDS ORDERED: DEXTROSE 50% 50 ML SYRINGE IV PRN (11:25)
[2025-02-11] MEDS ORDERED: GLUCAGON INJ 1 MG VIAL SC PRN (11:25)
[2025-02-11] MEDS ORDERED: LIDOCAINE 2% 100 MG/5 ML SDV (FOR ANES.) As Ordered ONE (13:30)
[2025-02-11] MEDS ORDERED: MIDAZOLAM INJ 2 MG/2 ML VIAL As Ordered ONE (13:30)
[2025-02-11] MEDS: LIDOCAINE 2% 5 ML JELLY UROJET As Ordered ONE (14:16)
[2025-02-11] MEDS: ISOVUE-300 61% 100 ML VIAL As Ordered ONE (14:20)
[2025-02-11] MEDS: ceFAZolin SODIUM 2 GM in DEXTROSE 5% (D5W) ADV/MINI-BAG 50 ML IV ONE (14:36)
[2025-02-11 15:30] VITALS: BP 109/69; TEMP 97.9; O2SAT 99
[2025-02-11] MEDS: MAG SULF 1GM/100ML (MAG RUN) 1 GM in IV 1 EA IV SCH (15:47)
[2025-02-11] MEDS: SODIUM BICARBONATE 75 MEQ in NS 0.45% 1,000 ML IV SCH (15:47)
[2025-02-11 16:20] VITALS: BP 114/70; TEMP 98.1; O2SAT 97
[2025-02-11 20:17] VITALS: BP 102/65; TEMP 98.6; O2SAT 97
[2025-02-11] MEDS: TAMSULOSIN 0.4 MG CAP PO SCH (21:04)
[2025-02-11 23:37] VITALS: BP 92/54; TEMP 98.8; O2SAT 96
[2025-02-12] VITALS (7 sets, daily range): BP systolic 94–106; BP diastolic 54–66; TEMP 98.4–98.8; O2SAT 94–95
[2025-02-12 06:51] LABS: PLATELET COUNT, AUTOMATED 238 10^3/uL (150-450)
[2025-02-12 07:09] LABS: CALCIUM LEVEL 8.1 MG/DL (8.3-10.6); CARBON DIOXIDE LEVEL 24.0 MMOL/L (20-31); CHLORIDE LEVEL 102.0 MMOL/L (98-107); CREATININE FOR GFR 1.81 MG/DL (0.55-1.30); GLOMERULAR FILTRATION RATE 28.5 (>39); MAGNESIUM LEVEL 2.2 MG/DL (1.8-2.4); POTASSIUM SERUM 3.4 MMOL/L (3.5-5.1); SODIUM LEVEL 138.0 MMOL/L (136-145)
[2025-02-12] MEDS: POTASSIUM CHLORIDE 10MEQ SR TABLET PO ONE (10:21)
[2025-02-12] MEDS: FLUZONE HIGH DOSE (65+) 0.5 ML SYRINGE (25-26) IM.IMMUN ONE (10:26)
[2025-02-13 03:42] VITALS: BP 104/64; TEMP 98.1; O2SAT 93
[2025-02-13 06:22] LABS: PLATELET COUNT, AUTOMATED 216 10^3/uL (150-450)
[2025-02-13 06:52] LABS: CALCIUM LEVEL 8.2 MG/DL (8.3-10.6); CARBON DIOXIDE LEVEL 25.0 MMOL/L (20-31); CHLORIDE LEVEL 106.0 MMOL/L (98-107); CREATININE FOR GFR 1.43 MG/DL (0.55-1.30); GLOMERULAR FILTRATION RATE 37.8 (>39); MAGNESIUM LEVEL 1.8 MG/DL (1.8-2.4); POTASSIUM SERUM 3.7 MMOL/L (3.5-5.1); SODIUM LEVEL 143.0 MMOL/L (136-145)
[2025-02-13 07:47] VITALS: BP 103/64; TEMP 98.6; O2SAT 95
[2025-02-13 11:39] VITALS: BP 106/63; TEMP 98.8; O2SAT 93
== END 2025-02-13 13:57 | disposition home or self-care (01) | DRG 660 ==
LOC: M ED 20:31 → M ED INP 02-11 04:09 → M MSPAV 02-11 11:06
PROVIDERS: ADMIT Student in an Organized Health Care Education/Training Program; ATTEND Student in an Organized Health Care Education/Training Program
PROC: 0T778DZ Dilation of Left Ureter with Intraluminal Device, Via Natural or Artificial Opening Endoscopic (ICD-10-PCS; principal; 2025-02-11 14:50)
DX: N13.2 Hydronephrosis with renal and ureteral calculous obstruction (principal); E87.20 Acidosis, unspecified; E87.1 Hypo-osmolality and hyponatremia; N17.9 Acute kidney failure, unspecified; E87.5 Hyperkalemia; E86.0 Dehydration; I48.91 Unspecified atrial fibrillation; E78.5 Hyperlipidemia, unspecified; I12.9 Hypertensive chronic kidney disease with stage 1 through stage 4 chronic kidney disease, or unspecified chronic kidney disease; R53.1 Weakness; R13.10 Dysphagia, unspecified; F32.A Depression, unspecified; N18.9 Chronic kidney disease, unspecified; Z93.2 Ileostomy status; Z79.01 Long term (current) use of anticoagulants; Z79.899 Other long term (current) drug therapy; Z90.49 Acquired absence of other specified parts of digestive tract; Z87.891 Personal history of nicotine dependence

== ENCOUNTER → 2025-03-03 | Outpatient (REF) | payer MEDICARE ==
[~2025-03-03] MED LIST changes: +TAMS-18 PO
[2025-03-03 18:37] LABS: ALT/SGPT < 9 U/L (7.0-40); AST/SGOT 17 U/L (<34); CALCIUM LEVEL 10.0 MG/DL (8.3-10.6); CARBON DIOXIDE LEVEL 26 MMOL/L (20-31); CHLORIDE LEVEL 107 MMOL/L (98-107); CREATININE FOR GFR 1.18 MG/DL (0.55-1.30); GLOMERULAR FILTRATION RATE 47.6 (>39); POTASSIUM SERUM 4.3 MMOL/L (3.5-5.1); SODIUM LEVEL 144 MMOL/L (136-145)
== END ==
LOC: M LAB REF 16:49
PROVIDERS: ATTEND Student in an Organized Health Care Education/Training Program
DX: E87.5 Hyperkalemia (principal)